=== PATIENT | female | born 1935 | race Caucasian/White ===

== ENCOUNTER → 2016-07-22 | Outpatient (CLI) | payer MEDICARE, MEDICAID ==
--- NOTE | 2016-07-22 11:55 | REPMRS ---
Patient History The patient states she had a clinical breast exam in 07/2016. Patient is postmenopausal. Family history of colorectal cancer in mother and breast cancer in maternal aunt. Benign excisional biopsy of the left breast. Digital Woman Screen Mammo: July 22, 2016 - Exam #: [id number] Bilateral CC and MLO view(s) were taken. Technologist: Monica Lopez Technologist Prior study comparison: January 21, 2013, digital woman screen mammo performed at [facility] to [facility]. August 30, 2010, bilateral bilat screen digital mammo performed at [facility] to [facility]. FINDINGS: The breast tissue is heterogeneously dense. This may lower the sensitivity of mammography. There has been no change in the appearance of the mammogram from the prior studies. There is a moderate amount of residual fibroglandular tissue which is fairly symmetric. There is no interval development of dominant mass, areas of architectural distortion, or clustered microcalcification typical of malignancy. ASSESSMENT: BI-RADS/ACR category 1 mammogram. Negative. Recommendation Routine screening mammogram in 1 year (for women over age 40). This mammogram was interpreted with the aid of an FDA-approved computer-aided dectection system. Electronically Signed By: João Amaya MD 07/22/16 [id number]
== END ==
LOC: M WHC 10:28
PROVIDERS: ATTEND Nurse Practitioner Family
DX: Z12.31 Encounter for screening mammogram for malignant neoplasm of breast (principal); Z78.0 Asymptomatic menopausal state; Z92.89 Personal history of other medical treatment
CPT/HCPCS: G0202; G0463

== ENCOUNTER → 2016-11-24 | Outpatient (CLI) | payer MEDICARE, MEDICAID ==
[~2016-11-24] MED LIST: ASPI1TAB PO; CALC600T60 PO; GABA-283 PO; HYDR-3713 PO; OMEP20CA3 PO; VITA100067 PO
[2016-11-24 15:09] LABS: MEAN CORPUSCULAR HEMOGLOBIN 34.1 pg (27.0-33.0); MEAN CORPUSCULAR HGB CONC 34.6 g/dl (32.0-36.5); MEAN CORPUSCULAR VOLUME 98.5 fl (80.0-96.0); RED CELL DISTRIBUTION WIDTH 12.6 % (11.5-14.5); WHITE BLOOD COUNT 5.8 K/mm3 (4.0-10.0)
--- NOTE | 2016-11-24 15:19 | REP ---
Clinical: Pre admission testing . Comparison: 10/09/2014 . Technique: PA and lateral. Findings: The mediastinum and cardiac silhouette are normal. Airway is patent and midline. The lung rubio are stable and without acute consolidation, effusion, or pneumothorax. The skeletal structures are intact and normal. Impression: 1. No acute cardiopulmonary process. Signed by Chandrakant Palmer MD 11/24/2016 03:11 P
[2016-11-24 15:25] LABS: ANION GAP 7 MEQ/L (8-16); BLOOD UREA NITROGEN 17 MG/DL (7-18); CALCIUM LEVEL 8.4 MG/DL (8.8-10.2); CARBON DIOXIDE LEVEL 28 MEQ/L (21-32); CHLORIDE LEVEL 111 MEQ/L (98-107); CREATININE FOR GFR 0.82 MG/DL (0.55-1.02); GLOMERULAR FILTRATION RATE > 60.0 (>32); GLUCOSE, FASTING 81 MG/DL (83-110); POTASSIUM SERUM 4.3 MEQ/L (3.5-5.1); SODIUM LEVEL 146 MEQ/L (136-145)
--- NOTE | 2016-11-25 13:21 | ECGEPIP ---
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 LA conduction disturbance. Borderline first-degree AV block. Marked left axis deviation. Left bundle branch block Slower rate but otherwise unchanged from 10/02/14 Electronically Signed On 11-25-2016 13:20:56 EDT by Fermin Greenfield
== END ==
LOC: M LAB 14:40
PROVIDERS: ATTEND Podiatrist Foot & Ankle Surgery
DX: Z01.818 Encounter for other preprocedural examination (principal); M67.472 Ganglion, left ankle and foot; R94.31 Abnormal electrocardiogram [ECG] [EKG]

== ENCOUNTER 2016-12-09 08:15 | Day surgery (SDC) | payer MEDICARE, MEDICAID ==
[~2016-12-09] VITALS: Ht 160 cm; Wt 65.8 kg
[~2016-12-09 08:15] MED LIST changes: -HYDR-3713 PO
[2016-12-09] MEDS ORDERED: CLINDAMYCIN 600 MG in APPROPRIATE DILUENT 1 EA IV ONE (08:30)
[2016-12-09] MEDS ORDERED: MIDAZOLAM INJ 2 MG/2 ML VIAL (J2250) As Ordered ONE (09:31)
[2016-12-09] MEDS ORDERED: fentaNYL 100 MCG/2 ML INJECTION (J3010) As Ordered ONE (09:31)
[2016-12-09] MEDS ORDERED: LIDOCAINE 1% MDV 20ML VIAL SQ PRN (09:45)
[2016-12-09] MEDS ORDERED: LR 1,000 ML IV ONE (09:45)
[2016-12-09] MEDS ORDERED: LIDOCAINE 1% MDV 20ML VIAL As Ordered ONE (09:53)
[2016-12-09] MEDS ORDERED: dexameTHASONE 4 MG/ML 1ML VIAL (J1100) As Ordered ONE (09:53)
[2016-12-09] MEDS ORDERED: BUPIVACAINE HCL 0.5% 10 ML VIAL As Ordered ONE (09:53)
[2016-12-09] MEDS ORDERED: LIDOCAINE 2% INJ 100 MG/5 ML SDV (FOR ANES.) As Ordered ONE (10:14)
[2016-12-09] MEDS ORDERED: PROPOFOL 200 MG/20 ML VIAL As Ordered ONE (10:14)
[2016-12-09] MEDS ORDERED: HYDR-3713 PO (10:50)
--- NOTE | 2016-12-09 11:24 | RO ---
DATE OF PROCEDURE: 12/09/2016 PREPROCEDURE DIAGNOSIS: Left foot ganglion cyst. POSTPROCEDURE DIAGNOSIS: Left foot inclusion cyst. PROCEDURE: Left foot cyst excision SURGEON: Dr. Sidney Wall RELIGIOUS RITUAL SLAUGHTERER: None. ANESTHESIA: Monitored anesthesia care. Preoperative injection of 14 mL of 1:1 mixture of 1% lidocaine plain and .50% Marcaine plain. ESTIMATED BLOOD LOSS: Minimal. MATERIALS: #3-0 Vicryl, #4-0 nylon. SPECIMEN: Left foot cyst. COMPLICATIONS: None. CONDITION: Stable. Sowmya Mata is an 81-year-old female who presents to [facility] with complains of painful cyst on the bottom of her left foot. She presents today for excision of cyst. The patient's side and site were identified and marked preoperatively and a written consent was reviewed and obtained. All the risks, complications, alternatives to the procedure were explained to the patient in detail. Questions were answered. DESCRIPTION OF PROCEDURE: The patient was brought to the operating room and placed on the operating room table in supine position. Monitored anesthesia care was given by the anesthesia team. Preoperative injection of 14 mL of 1:1 mixture of 1% lidocaine plain and 0.50 Marcaine plain was injected over the left foot. The left foot was prepped and draped in the normal sterile fashion. A tourniquet was applied to the ankle and inflated at 250 mmHg. An elliptical incision was created around the plantar cyst, which was located in the left plantar hallux. This was carried through with a #15 blade. Tenotomy scissors were used to carefully dissect around the cyst. The cyst was excised in total. There was noted to be a cream cheese-like material with inside this cyst. This was sent for pathology. The site was irrigated with normal saline . No further cyst or capsule was noted. Subcutaneous closure was performed with #3-0 Vicryl and skin closure with #4-0 nylon. 1 mL Decadron was injected. Sterile dressings were applied. The tourniquet was deflated. The patient was brought back to the postanesthesia care unit (PACU) with vital signs stable, neurovascular status intact. She will be weight bearing as tolerated. She will followup in the office in 2 days. DARLYN
[2016-12-09] MEDS ORDERED: ONDANSETRON 4MG/2ML VIAL (J2405) IV PRN (11:30)
[2016-12-09 12:15] VITALS: BP 178/79
== END 2016-12-09 12:45 | disposition home or self-care (01) ==
LOC: M SDC 08:15
PROVIDERS: ATTEND Podiatrist Foot & Ankle Surgery
DX: M67.472 Ganglion, left ankle and foot (principal); K21.9 Gastro-esophageal reflux disease without esophagitis; I44.7 Left bundle-branch block, unspecified; I49.1 Atrial premature depolarization; M12.9 Arthropathy, unspecified; M54.2 Cervicalgia; M48.06 Spinal stenosis, lumbar region; M47.817 Spondylosis without myelopathy or radiculopathy, lumbosacral region; F17.210 Nicotine dependence, cigarettes, uncomplicated; I08.0 Rheumatic disorders of both mitral and aortic valves; Z88.0 Allergy status to penicillin; Z79.899 Other long term (current) drug therapy; Z79.82 Long term (current) use of aspirin; Z86.19 Personal history of other infectious and parasitic diseases; Z98.51 Tubal ligation status; Z78.0 Asymptomatic menopausal state; Z96.1 Presence of intraocular lens
CPT/HCPCS: 28090; 88304; J1100; J2250; J3010

== ENCOUNTER → 2017-03-02 | Outpatient (CLI) | payer MEDICARE, MEDICAID ==
[~2017-03-02] MED LIST changes: +HYDR-3713 PO
[2017-03-02 18:00] LABS: BASO # 0.1 10^3/uL (0.0-0.2); BASO % 0.9 % (0.0-1.0); EOS # 0.2 10^3/uL (0.0-0.50); EOS % 3.4 % (0.0-3.0); IMMATURE GRANULOCYTE % 0.2 % (0-0); LYMPH # 2.1 10^3/uL (1.5-4.5); LYMPH % 32.1 % (24.0-44.0); MEAN CORPUSCULAR HEMOGLOBIN 32.1 pg (27.0-33.0); MEAN CORPUSCULAR HGB CONC 32.5 g/dl (32.0-36.5); MEAN CORPUSCULAR VOLUME 98.8 fl (80.0-96.0); MONO # 0.7 10^3/uL (0.0-0.8); MONO % 10.3 % (0.0-5.0); NEUTROPHILS # 3.4 10^3/uL (1.8-7.7); NEUTROPHILS % 53.1 % (36.0-66.0); PLATELET COUNT, AUTOMATED 340 10^3/uL (150-450); RED CELL DISTRIBUTION WIDTH 13.2 % (11.5-14.5); WHITE BLOOD COUNT 6.4 10^3/uL (4.0-10.0)
[2017-03-02 18:12] LABS: ALBUMIN 3.4 GM/DL (3.2-5.2); ALBUMIN/GLOBULIN RATIO 1.06 (1.00-1.93); ALKALINE PHOSPHATASE 109 U/L (45-117); ALT/SGPT 18 U/L (12-78); ANION GAP 7 MEQ/L (8-16); AST/SGOT 14 U/L (7-37); BILIRUBIN,TOTAL 0.2 MG/DL (0.2-1.0); BLOOD UREA NITROGEN 17 MG/DL (7-18); CALCIUM LEVEL 8.8 MG/DL (8.8-10.2); CARBON DIOXIDE LEVEL 29 MEQ/L (21-32); CHLORIDE LEVEL 107 MEQ/L (98-107); CREATININE FOR GFR 0.68 MG/DL (0.55-1.02); GLOMERULAR FILTRATION RATE > 60.0 (>32); GLUCOSE, FASTING 75 MG/DL (83-110); POTASSIUM SERUM 4.9 MEQ/L (3.5-5.1); SODIUM LEVEL 143 MEQ/L (136-145); TOTAL PROTEIN 6.6 GM/DL (6.4-8.2)
== END ==
LOC: M WUC 14:03
PROVIDERS: ATTEND Physician Assistant
DX: R19.7 Diarrhea, unspecified (principal)

== ENCOUNTER 2017-06-02 15:45 | Emergency (ER) | payer MEDICARE, MEDICAID ==
[2017-06-02] MEDS: GI COCKTAIL 50ML BTL(HYOSCYAMINE/MAALOX/LIDOCAINE VISCOUS)(1:3:1) PO (18:30)
[2017-06-02] MEDS: IPRATROPIUM 0.5MG/ALBUTEROL 2.5MG INH SOL UD 3ML (DUONEB)(J7620) NEB (18:58)
[2017-06-02 19:09] LABS: BASO # 0.1 10^3/uL (0.0-0.2); BASO % 0.3 % (0.0-1.0); EOS # 0.1 10^3/uL (0.0-0.50); EOS % 0.7 % (0.0-3.0); HEMOGLOBIN 12.1 g/dl (12.0-16.0); IMMATURE GRANULOCYTE % 0.6 % (0-3.0); LYMPH # 1.2 10^3/uL (1.5-4.5); LYMPH % 7.5 % (24.0-44.0); MEAN CORPUSCULAR HEMOGLOBIN 32.2 pg (27.0-33.0); MEAN CORPUSCULAR HGB CONC 33.6 g/dl (32.0-36.5); MEAN CORPUSCULAR VOLUME 95.7 fl (80.0-96.0); MONO # 1.1 10^3/uL (0.0-0.8); MONO % 7.3 % (0.0-5.0); NEUTROPHILS % 83.6 % (36.0-66.0); PLATELET COUNT, AUTOMATED 327 10^3/uL (150-450); RED BLOOD COUNT 3.76 10^6/uL (4.00-5.40); RED CELL DISTRIBUTION WIDTH 12.6 % (11.5-14.5); WHITE BLOOD COUNT 15.5 10^3/uL (4.0-10.0)
[2017-06-02 19:26] LABS: ANION GAP 5 MEQ/L (8-16); BLOOD UREA NITROGEN 10 MG/DL (7-18); CALCIUM LEVEL 8.7 MG/DL (8.8-10.2); CARBON DIOXIDE LEVEL 27 MEQ/L (21-32); CHLORIDE LEVEL 106 MEQ/L (98-107); CPK CREATINE PHOSPHOKINASE 49 U/L (26-192); CREATININE FOR GFR 0.62 MG/DL (0.55-1.30); GLOMERULAR FILTRATION RATE > 60.0 (>32); GLUCOSE, FASTING 107 MG/DL (70-100); MB/CK RELATIVE INDEX 2.04 (< OR =4); POTASSIUM SERUM 3.5 MEQ/L (3.5-5.1); SODIUM LEVEL 138 MEQ/L (136-145); TROPONIN I < 0.02 NG/ML (< 0.10)
[2017-06-02] MEDS: ACETAMINOPHEN 325 MG TAB PO (20:20)
[2017-06-02] MEDS: BENZONATATE 100 MG CAP PO (20:20)
== END 2017-06-02 20:28 | disposition home or self-care (01) ==
LOC: M ED 15:45
DX: J18.9 Pneumonia, unspecified organism (principal); R00.0 Tachycardia, unspecified; I44.7 Left bundle-branch block, unspecified; K21.9 Gastro-esophageal reflux disease without esophagitis; Z86.19 Personal history of other infectious and parasitic diseases; Z87.891 Personal history of nicotine dependence; Z79.82 Long term (current) use of aspirin; Z79.899 Other long term (current) drug therapy; Z88.0 Allergy status to penicillin
CPT/HCPCS: 71046

== ENCOUNTER → 2017-06-12 | Outpatient (CLI) | payer MEDICARE, MEDICAID ==
[2017-06-12 13:53] LABS: BASO # 0.1 10^3/uL (0.0-0.2); BASO % 0.9 % (0.0-1.0); EOS # 0.2 10^3/uL (0.0-0.50); EOS % 2.6 % (0.0-3.0); HEMATOCRIT 39.8 % (36.0-47.0); HEMOGLOBIN 12.9 g/dl (12.0-16.0); IMMATURE GRANULOCYTE % 0.7 % (0-3.0); LYMPH # 1.7 10^3/uL (1.5-4.5); LYMPH % 18.4 % (24.0-44.0); MEAN CORPUSCULAR HEMOGLOBIN 31.9 pg (27.0-33.0); MEAN CORPUSCULAR HGB CONC 32.4 g/dl (32.0-36.5); MEAN CORPUSCULAR VOLUME 98.3 fl (80.0-96.0); MONO # 0.8 10^3/uL (0.0-0.8); MONO % 8.3 % (0.0-5.0); NEUTROPHILS # 6.5 10^3/uL (1.8-7.7); NEUTROPHILS % 69.1 % (36.0-66.0); PLATELET COUNT, AUTOMATED 517 10^3/uL (150-450); RED BLOOD COUNT 4.05 10^6/uL (4.00-5.40); RED CELL DISTRIBUTION WIDTH 12.7 % (11.5-14.5); WHITE BLOOD COUNT 9.4 10^3/uL (4.0-10.0)
== END ==
LOC: M WUC 09:20
DX: J18.9 Pneumonia, unspecified organism (principal)
CPT/HCPCS: 85025

== ENCOUNTER → 2017-10-31 | Outpatient (CLI) | payer MEDICARE, MEDICAID | LOC: M WHC 10:31 | DX: Z12.31 Encounter for screening mammogram for malignant neoplasm of breast (principal); N60.31 Fibrosclerosis of right breast; N60.32 Fibrosclerosis of left breast | CPT/HCPCS: 77067 ==

== ENCOUNTER 2017-11-24 21:57 | Emergency (ER) | payer MEDICARE, MEDICAID ==
[2017-11-25 00:37] LABS: APPEARANCE, URINE HAZY (CLEAR); BACTERIA, URINE AUTO NEGATIVE (NEGATIVE); BILIRUBIN, URINE AUTO NEGATIVE (NEGATIVE); BLOOD, URINE BLOOD NEGATIVE (NEGATIVE); COLOR, URINE YELLOW (YELLOW); GLUCOSE, URINE (UA) AUTO NEGATIVE (NEGATIVE); KETONE, URINE AUTO NEGATIVE (NEGATIVE); LEUKOCYTE ESTERASE, URINE AUTO 3+ (NEGATIVE); MUCUS, URINE SMALL (NEGATIVE); NITRITE, URINE AUTO NEGATIVE (NEGATIVE); PROTEIN, URINE AUTO NEGATIVE (NEGATIVE); RBC, URINE AUTO 11 /HPF (0-3); SPECIFIC GRAVITY URINE AUTO 1.019 (1.002-1.035); SQUAMOUS EPITHELIAL CELL UR AU 0 /HPF (0-6); TRANSITIONAL EPITHELIAL AUTO 1 /HPF; WBC, URINE AUTO 57 /HPF (0-3)
[2017-11-25 00:39] LABS: BASO # 0.1 10^3/uL (0.0-0.2); BASO % 0.9 % (0.0-1.0); EOS # 0.2 10^3/uL (0.0-0.50); EOS % 2.6 % (0.0-3.0); HEMATOCRIT 42.8 % (36.0-47.0); IMMATURE GRANULOCYTE % 0.5 % (0-3.0); LYMPH # 2.3 10^3/uL (1.5-4.5); LYMPH % 26.5 % (24.0-44.0); MEAN CORPUSCULAR HEMOGLOBIN 32.8 pg (27.0-33.0); MEAN CORPUSCULAR HGB CONC 32.7 g/dl (32.0-36.5); MEAN CORPUSCULAR VOLUME 100.2 fl (80.0-96.0); MONO # 0.6 10^3/uL (0.0-0.8); MONO % 7.5 % (0.0-5.0); NEUTROPHILS # 5.3 10^3/uL (1.8-7.7); PLATELET COUNT, AUTOMATED 266 10^3/uL (150-450); RED BLOOD COUNT 4.27 10^6/uL (4.00-5.40); RED CELL DISTRIBUTION WIDTH 13.2 % (11.5-14.5); WHITE BLOOD COUNT 8.6 10^3/uL (4.0-10.0)
[2017-11-25 00:55] LABS: ALBUMIN 3.5 GM/DL (3.2-5.2); ALBUMIN/GLOBULIN RATIO 1.09 (1.00-1.93); ALKALINE PHOSPHATASE 108 U/L (45-117); ALT/SGPT 14 U/L (12-78); ANION GAP 5 MEQ/L (8-16); AST/SGOT 15 U/L (7-37); BILIRUBIN,DIRECT < 0.1 MG/DL (0.0-0.2); BILIRUBIN,TOTAL 0.1 MG/DL (0.2-1.0); BLOOD UREA NITROGEN 18 MG/DL (7-18); CALCIUM LEVEL 8.5 MG/DL (8.8-10.2); CARBON DIOXIDE LEVEL 28 MEQ/L (21-32); CHLORIDE LEVEL 110 MEQ/L (98-107); CREATININE FOR GFR 0.68 MG/DL (0.55-1.30); GLOMERULAR FILTRATION RATE > 60.0 (>32); GLUCOSE, FASTING 88 MG/DL (70-100); POTASSIUM SERUM 4.1 MEQ/L (3.5-5.1); SODIUM LEVEL 143 MEQ/L (136-145); TOTAL PROTEIN 6.7 GM/DL (6.4-8.2)
== END 2017-11-25 01:25 | disposition home or self-care (01) ==
LOC: M ED 21:57
DX: M54.5 Low back pain (principal); D25.2 Subserosal leiomyoma of uterus; K21.9 Gastro-esophageal reflux disease without esophagitis; F17.200 Nicotine dependence, unspecified, uncomplicated; Z88.0 Allergy status to penicillin; Z79.899 Other long term (current) drug therapy; Z79.82 Long term (current) use of aspirin
CPT/HCPCS: 74176

== ENCOUNTER → 2018-01-02 | Outpatient (CLI) | payer MEDICARE, MEDICAID | LOC: M WHC 09:26 | DX: D25.1 Intramural leiomyoma of uterus (principal) | CPT/HCPCS: 76830 ==

== ENCOUNTER → 2018-01-13 | Outpatient (CLI) | payer MEDICARE, MEDICAID | LOC: M WUC 18:16 | DX: S29.012A Strain of muscle and tendon of back wall of thorax, initial encounter (principal); R05 Cough; Z72.0 Tobacco use | CPT/HCPCS: 71046 ==

== ENCOUNTER 2018-01-14 15:54 | Emergency (ER) | payer MEDICARE, MEDICAID ==
[2018-01-14 19:44] LABS: BASO # 0.1 10^3/uL (0.0-0.2); BASO % 0.9 % (0.0-1.0); EOS # 0.3 10^3/uL (0.0-0.50); EOS % 2.8 % (0.0-3.0); HEMOGLOBIN 14.1 g/dl (12.0-15.5); IMMATURE GRANULOCYTE % 0.3 % (0-3.0); LYMPH # 2.4 10^3/uL (1.5-4.5); LYMPH % 26.7 % (24.0-44.0); MEAN CORPUSCULAR HGB CONC 33.6 g/dl (32.0-36.5); MEAN CORPUSCULAR VOLUME 98.4 fl (80.0-96.0); MONO # 0.6 10^3/uL (0.0-0.8); MONO % 6.9 % (0.0-5.0); NEUTROPHILS # 5.6 10^3/uL (1.8-7.7); NEUTROPHILS % 62.4 % (36.0-66.0); PLATELET COUNT, AUTOMATED 313 10^3/uL (150-450); RED BLOOD COUNT 4.27 10^6/uL (4.00-5.40); RED CELL DISTRIBUTION WIDTH 13.2 % (11.5-14.5)
[2018-01-14 20:20] LABS: ALBUMIN 3.5 GM/DL (3.2-5.2); ALBUMIN/GLOBULIN RATIO 1.09 (1.00-1.93); ALKALINE PHOSPHATASE 118 U/L (45-117); ALT/SGPT 16 U/L (12-78); ANION GAP 6 MEQ/L (8-16); AST/SGOT 12 U/L (7-37); BILIRUBIN,DIRECT < 0.1 MG/DL (0.0-0.2); BILIRUBIN,TOTAL 0.3 MG/DL (0.2-1.0); BLOOD UREA NITROGEN 22 MG/DL (7-18); CALCIUM LEVEL 8.8 MG/DL (8.8-10.2); CARBON DIOXIDE LEVEL 29 MEQ/L (21-32); CHLORIDE LEVEL 107 MEQ/L (98-107); CREATININE FOR GFR 0.83 MG/DL (0.55-1.30); GLOMERULAR FILTRATION RATE > 60.0 (>32); GLUCOSE, FASTING 87 MG/DL (70-100); POTASSIUM SERUM 4.4 MEQ/L (3.5-5.1); SODIUM LEVEL 142 MEQ/L (136-145); TOTAL PROTEIN 6.7 GM/DL (6.4-8.2)
[2018-01-14] MEDS: AZITHROMYCIN 250 MG TAB PO (21:08)
[2018-01-14] MEDS: KETOROLAC 30 MG/ML VIAL (J1885) IV (21:09)
== END 2018-01-14 21:23 | disposition home or self-care (01) ==
LOC: M ED 15:54
DX: R91.8 Other nonspecific abnormal finding of lung field (principal); E04.1 Nontoxic single thyroid nodule; M54.6 Pain in thoracic spine; Z72.0 Tobacco use; Z79.82 Long term (current) use of aspirin; Z79.899 Other long term (current) drug therapy; Z88.0 Allergy status to penicillin
CPT/HCPCS: J1885

== ENCOUNTER 2018-01-17 15:36 | Emergency (ER) | payer MEDICARE, MEDICAID | END 2018-01-17 16:43 | disposition home or self-care (01) | LOC: M ED 15:36 | DX: M79.2 Neuralgia and neuritis, unspecified (principal); M54.9 Dorsalgia, unspecified; G89.29 Other chronic pain; F17.200 Nicotine dependence, unspecified, uncomplicated; Z88.0 Allergy status to penicillin | CPT/HCPCS: 99283 ==

== ENCOUNTER 2018-03-29 07:32 | Emergency (ER) | payer MEDICARE, MEDICAID ==
[~2018-03-29] VITALS: Ht 160 cm; Wt 65.9 kg
[~2018-03-29 07:32] MED LIST changes: +AZIT-12 PO; -GABA-283 PO; +GABA-845 PO; +LEVA1TAB2 PO; +NAPR-50 PO; +TRAM50TA2 PO; +VALT1TAB PO
[2018-03-29 08:45] VITALS: BP 124/59
--- NOTE | 2018-03-29 08:51 | REP ---
UNILATERAL RIGHT RIBS, PA CHEST, FIVE VIEWS: HISTORY: Fall. COMPARISON: 01/13/2018 Linear densities are present in the lower lobes consistent with atelectasis or scar. The heart is normal in size. The pulmonary vasculature is normal in appearance. The bony structure is intact. IMPRESSION: Bibasilar atelectasis or scar. Electronically Signed by Kain Hunt MD 03/29/2018 09:00 A
--- NOTE | 2018-03-29 08:52 | REP ---
NASAL BONES, THREE VIEWS: HISTORY: Fall. The sinuses are clear. There is no fracture or bone lesion. IMPRESSION: Normal study. Electronically Signed by Kain Hunt MD 03/29/2018 09:00 A
== END 2018-03-29 08:51 | disposition home or self-care (01) ==
LOC: M ED 07:32
DX: S20.211A Contusion of right front wall of thorax, initial encounter (principal); S00.33XA Contusion of nose, initial encounter; W01.0XXA Fall on same level from slipping, tripping and stumbling without subsequent striking against object, initial encounter; Y92.008 Other place in unspecified non-institutional (private) residence as the place of occurrence of the external cause; K21.9 Gastro-esophageal reflux disease without esophagitis; Z88.0 Allergy status to penicillin; Z87.891 Personal history of nicotine dependence

== ENCOUNTER → 2018-04-28 | Outpatient (CLI) | payer MEDICARE, MEDICAID ==
[2018-04-28 14:46] LABS: FREE T3 2.3 PG/ML (2.2-4.0); FREE T4 0.66 NG/DL (0.76-1.46); THYROID STIMULATING HORMONE 12.3 uIU/ML (0.358-3.740)
== END ==
LOC: M WUC 11:08
PROVIDERS: ATTEND Nurse Practitioner Family
DX: E04.1 Nontoxic single thyroid nodule (principal)

== ENCOUNTER → 2018-06-15 | Outpatient (CLI) | payer MEDICARE, MEDICAID ==
[2018-06-15 14:59] LABS: FREE T3 2.4 PG/ML (2.2-4.0); FREE T4 0.94 NG/DL (0.76-1.46); THYROID STIMULATING HORMONE 4.77 uIU/ML (0.358-3.740)
== END ==
LOC: M WUC 12:33
PROVIDERS: ATTEND Nurse Practitioner Family
DX: E03.9 Hypothyroidism, unspecified (principal)

== ENCOUNTER 2018-06-27 06:31 | Emergency (ER) | payer MEDICARE, MEDICAID ==
[~2018-06-27] VITALS: Ht 160 cm; Wt 65.9 kg
[~2018-06-27 06:31] MED LIST changes: -ASPI1TAB PO; +ASPI81TA26 PO; -NAPR-50 PO; +NAPR-837 PO
--- NOTE | 2018-06-27 07:58 | REP ---
Clinical: Foreign body sensation. Technique: AP and lateral soft tissue neck radiographs. Findings: Airway is patent and normal in appearance without associated mass or mass effect. The surrounding soft tissues are unremarkable for age and there is no obvious foreign body identified. Soft tissue calcifications in the prevertebral soft tissues at the C3 and C4-5 levels likely represent osteophytes and calcifications related to the thyroid rather than actual pathologic foreign body material. No subcutaneous emphysema. The osseous structures demonstrate age-related osteopenia and degenerative changes. Impression: No definite foreign body appreciated. Electronically Signed by Chandrakant Palmer MD 06/27/2018 07:50 A
[2018-06-27 08:14] VITALS: BP 105/54
== END 2018-06-27 08:22 | disposition home or self-care (01) ==
LOC: M ED 06:31
DX: R09.89 Other specified symptoms and signs involving the circulatory and respiratory systems (principal); E04.1 Nontoxic single thyroid nodule; K27.9 Peptic ulcer, site unspecified, unspecified as acute or chronic, without hemorrhage or perforation; M54.9 Dorsalgia, unspecified; F17.200 Nicotine dependence, unspecified, uncomplicated; Z88.0 Allergy status to penicillin; Z79.899 Other long term (current) drug therapy

== ENCOUNTER → 2018-07-29 | Outpatient (CLI) | payer MEDICARE, MEDICAID ==
[2018-07-29 13:21] LABS: BASO # 0.1 10^3/uL (0.0-0.2); BASO % 0.9 % (0.0-1.0); EOS # 0.1 10^3/uL (0.0-0.50); EOS % 1.5 % (0.0-3.0); HEMATOCRIT 43.2 % (36.0-47.0); LYMPH # 1.6 10^3/uL (1.5-4.5); LYMPH % 21.4 % (24.0-44.0); MEAN CORPUSCULAR HEMOGLOBIN 32.3 pg (27.0-33.0); MEAN CORPUSCULAR HGB CONC 32.4 g/dl (32.0-36.5); MEAN CORPUSCULAR VOLUME 99.8 fl (80.0-96.0); MONO # 0.5 10^3/uL (0.0-0.8); MONO % 6.6 % (0.0-5.0); NEUTROPHILS # 5.1 10^3/uL (1.8-7.7); NEUTROPHILS % 69.3 % (36.0-66.0); PLATELET COUNT, AUTOMATED 314 10^3/uL (150-450); RED BLOOD COUNT 4.33 10^6/uL (4.00-5.40); WHITE BLOOD COUNT 7.4 10^3/uL (4.0-10.0)
[2018-07-29 14:05] LABS: ALBUMIN 3.4 GM/DL (3.2-5.2); ALT/SGPT 14 U/L (12-78); BILIRUBIN,TOTAL 0.3 MG/DL (0.2-1.0); BLOOD UREA NITROGEN 12 MG/DL (7-18); CARBON DIOXIDE LEVEL 31 MEQ/L (21-32); CHLORIDE LEVEL 107 MEQ/L (98-107); CHOLESTEROL LEVEL 208 MG/DL (<200); CHOLESTEROL RISK RATIO 3.014 (<5); CREATININE FOR GFR 0.61 MG/DL (0.55-1.30); FREE T3 2.5 PG/ML (2.2-4.0); FREE T4 1.04 NG/DL (0.76-1.46); GLOMERULAR FILTRATION RATE > 60.0 (>32); GLUCOSE, FASTING 75 MG/DL (70-100); HDL CHOLESTEROL 69 MG/DL (>40); LDL CHOLESTEROL 114 MG/DL (<100); NON-HDL-C 139 MG/DL; POTASSIUM SERUM 4.5 MEQ/L (3.5-5.1); SODIUM LEVEL 141 MEQ/L (136-145); TOTAL PROTEIN 6.3 GM/DL (6.4-8.2); TRIGLYCERIDES LEVEL 125 MG/DL (<150); VITAMIN B12 LEVEL 358 PG/ML (247-911)
== END ==
LOC: M WUC 10:25
PROVIDERS: ATTEND Nurse Practitioner Family
DX: E53.9 Vitamin B deficiency, unspecified (principal); E04.1 Nontoxic single thyroid nodule; E78.5 Hyperlipidemia, unspecified; K21.9 Gastro-esophageal reflux disease without esophagitis

== ENCOUNTER 2018-10-26 10:40 | Emergency (ER) | payer MEDICARE, MEDICAID ==
[~2018-10-26] VITALS: Ht 162.6 cm; Wt 64.5 kg
[~2018-10-26 10:40] MED LIST changes: +OMEP1CAP73 PO; -OMEP20CA3 PO
[2018-10-26 11:41] LABS: BASO # 0.1 10^3/uL (0.0-0.2); BASO % 0.8 % (0.0-1.0); EOS # 0.2 10^3/uL (0.0-0.50); HEMOGLOBIN 13.2 g/dl (12.0-15.5); LYMPH # 1.4 10^3/uL (1.5-4.5); LYMPH % 18.2 % (24.0-44.0); MEAN CORPUSCULAR HEMOGLOBIN 32.5 pg (27.0-33.0); MEAN CORPUSCULAR VOLUME 98.5 fl (80.0-96.0); MONO # 0.6 10^3/uL (0.0-0.8); MONO % 7.4 % (0.0-5.0); NEUTROPHILS # 5.4 10^3/uL (1.8-7.7); NEUTROPHILS % 71.2 % (36.0-66.0); PLATELET COUNT, AUTOMATED 281 10^3/uL (150-450); RED BLOOD COUNT 4.06 10^6/uL (4.00-5.40); WHITE BLOOD COUNT 7.6 10^3/uL (4.0-10.0)
[2018-10-26 12:07] LABS: BLOOD UREA NITROGEN 15 MG/DL (7-18); CALCIUM LEVEL 8.9 MG/DL (8.8-10.2); CARBON DIOXIDE LEVEL 30 MEQ/L (21-32); CHLORIDE LEVEL 110 MEQ/L (98-107); CK-MB VALUE MASS < 1.0 NG/ML (<3.6); CPK CREATINE PHOSPHOKINASE 43 U/L (26-192); CREATININE FOR GFR 0.68 MG/DL (0.55-1.30); GLOMERULAR FILTRATION RATE > 60.0 (>32); GLUCOSE, FASTING 103 MG/DL (70-100); MB/CK RELATIVE INDEX 2.33 (< OR =4); POTASSIUM SERUM 3.9 MEQ/L (3.5-5.1); SODIUM LEVEL 143 MEQ/L (136-145); TROPONIN I < 0.02 NG/ML (< 0.10)
[2018-10-26] MEDS ORDERED: NEUR100C PO (12:45)
--- NOTE | 2018-10-26 12:47 | REP ---
CHEST, TWO VIEWS: Two views of the chest are performed and compared to a prior study of 01/13/2018. There is no acute infiltrate. There is mild bibasilar fibrotic scarring which is stable. Heart is normal in size and there is mild calcification and tortuosity of the thoracic aorta. The mediastinal silhouette is unchanged. There is osteopenia. Increased compression of the T6 vertebral body is noted compared to the prior study. There is a stable compression deformity of T11. IMPRESSION: No acute infiltrate. Increased compression of the T6 vertebral body compared to the prior study of 01/13/2018. Electronically Signed by João Amaya MD 10/28/2018 07:46 A
[2018-10-26 13:01] VITALS: BP 124/71
--- NOTE | 2018-10-26 20:05 | ECGEPIP ---
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
--- NOTE | 2018-10-28 12:33 | ED PDOC ---
Post-Departure Follow-Up dr mcleod faxed fomral report of cxr for fu radhag Kevin Ray MD Oct 28, 2018 12:33
== END 2018-10-26 13:09 | disposition home or self-care (01) ==
LOC: M ED 10:40
DX: R07.89 Other chest pain (principal); I44.7 Left bundle-branch block, unspecified; I51.9 Heart disease, unspecified; I10 Essential (primary) hypertension; Z72.0 Tobacco use; Z79.899 Other long term (current) drug therapy; Z88.0 Allergy status to penicillin

== ENCOUNTER → 2018-10-30 | Outpatient (CLI) | payer MEDICARE, MEDICAID ==
[~2018-10-30] MED LIST changes: +NEUR100C PO
--- NOTE | 2018-10-30 11:44 | REPMRS ---
Patient History The patient states she has not had a clinical breast exam in over a year. Family history of breast cancer in maternal aunt, colorectal cancer in mother. Benign excisional biopsy of the left breast. No Hormone Replacement Therapy 3D TOMOSYNTHESIS WAS PERFORMED. [facility] lifetime risk for breast cancer is 1.8%. Digital Woman Screen Mammo: October 30, 2018 - Exam #: [id number] Bilateral CC and MLO view(s) were taken. Technologist: Abby Rouse, Technologist Prior study comparison: October 31, 2017, bilateral digital woman screen mammo performed at [facility]. July 22, 2016, digital woman screen mammo performed at [facility]. FINDINGS: The breast tissue is heterogeneously dense. This may lower the sensitivity of mammography. There has been no change in the appearance of the mammogram from the prior studies. There is a moderate amount of residual fibroglandular tissue which is fairly symmetric. There is no interval development of dominant mass, areas of architectural distortion, or clustered microcalcification typical of malignancy. Assessment: BI-RADS/ACR category 1 mammogram. Negative Mammogram. Recommendation Routine screening mammogram in 1 year (for women over age 40). This mammogram was interpreted with the aid of an FDA-approved computer-aided dectection system. Electronically Signed By: João Amaya MD 10/30/18 [id number]
== END ==
LOC: M WHC 09:35
PROVIDERS: ATTEND Nurse Practitioner Family
DX: Z12.31 Encounter for screening mammogram for malignant neoplasm of breast (principal)

== ENCOUNTER → 2018-12-23 | Outpatient (CLI) | payer MEDICARE, MEDICAID ==
[~2018-12-23] MED LIST changes: -OMEP1CAP73 PO; +OMEP20CA4 PO
--- NOTE | 2018-12-24 11:44 | DEXA ---
AP SPINE L1 - L4 0.789 -3.3 -1.4 LT FEMUR TOTAL 0.692 -2.5 -0.3 LT NECK 0.614 -3.1 -0.8 RT FEMUR TOTAL 0.723 -2.3 -0.1 RT NECK 0.687 -2.5 -0.2 TOTAL BODY TOTAL OTHER COMMENTS: There is low bone density of the right hip. There is osteoporosis of the spine. There is osteoporosis of the left hip. The decreased density of the spine does represent a significant change. The decreased density of the left hip does represent a significant change. The decreased density of the right hip does represent a significant change. The density of the spine has decreased 21.6% since the initial exam on 07/16/2007. The spine density has decreased 22.2% since the most recent exam on 09/20/2010. The density of the left hip has decreased 8.6% since the initial exam on 07/16/2007. The density of the left hip has decreased 6.0% since the most recent exam on 09/20/2010. The density of the right hip has decreased 6.6% since the initial exam on 07/16/2007. The density of the right hip has decreased 4.4% since the most recent exam on 09/20/2010. FOLLOW-UP: Recommendation for the next bone density exam: 2 years. DARLYN
== END ==
LOC: M WHC 09:47
PROVIDERS: ATTEND Internal Medicine
DX: M81.0 Age-related osteoporosis without current pathological fracture (principal)

== ENCOUNTER 2019-05-10 23:46 | Emergency (ER) | payer MEDICARE, MEDICAID ==
[~2019-05-10] VITALS: Ht 160 cm; Wt 68.2 kg
[~2019-05-10 23:46] MED LIST changes: +OMEP1CAP73 PO; -OMEP20CA4 PO
[2019-05-11 00:32] LABS: BASO % 0.2 % (0.0-1.0); EOS % 0.2 % (0.0-3.0); HEMATOCRIT 41.7 % (36.0-47.0); HEMOGLOBIN 13.7 g/dl (12.0-15.5); LYMPH # 0.8 10^3/uL (1.5-5.0); LYMPH % 14.1 % (24.0-44.0); MEAN CORPUSCULAR HEMOGLOBIN 32.1 pg (27.0-33.0); MEAN CORPUSCULAR HGB CONC 32.9 g/dl (32.0-36.5); MEAN CORPUSCULAR VOLUME 97.7 fl (80.0-96.0); MONO # 0.5 10^3/uL (0.0-0.8); MONO % 8.8 % (0.0-5.0); NEUTROPHILS # 4.5 10^3/uL (1.5-8.5); NEUTROPHILS % 76.2 % (36.0-66.0); PLATELET COUNT, AUTOMATED 223 10^3/uL (150-450); RED BLOOD COUNT 4.27 10^6/uL (4.00-5.40); WHITE BLOOD COUNT 5.9 10^3/uL (4.0-10.0)
[2019-05-11 00:53] LABS: BLOOD UREA NITROGEN 11 MG/DL (7-18); CALCIUM LEVEL 8.7 MG/DL (8.8-10.2); CARBON DIOXIDE LEVEL 30 MEQ/L (21-32); CHLORIDE LEVEL 106 MEQ/L (98-107); CK-MB VALUE MASS 1.3 NG/ML (<3.6); CPK CREATINE PHOSPHOKINASE 67 U/L (26-192); CREATININE FOR GFR 0.77 MG/DL (0.55-1.30); GLOMERULAR FILTRATION RATE > 60.0 (>32); GLUCOSE, FASTING 106 MG/DL (70-100); MB/CK RELATIVE INDEX 1.94 (< OR =4); SODIUM LEVEL 139 MEQ/L (136-145); TROPONIN I < 0.02 NG/ML (< 0.10)
[2019-05-11 01:01] LABS: INFLUENZA A AMPLIFICATION NEGATIVE (NEGATIVE); INFLUENZA B AMPLIFICATION NEGATIVE (NEGATIVE)
[2019-05-11] MEDS ORDERED: IPRATROPIUM 0.5MG/ALBUTEROL 2.5MG INH SOL UD 3ML (DUONEB)(J7620) NEB ONE (01:45)
[2019-05-11] MEDS ORDERED: predniSONE 20 MG TAB PO ONE (03:45)
[2019-05-11] MEDS ORDERED: ALBUTEROL 90 MCG/ACT 8GM HFA INHALER INH ONE (03:45)
[2019-05-11] MEDS ORDERED: guaiFENesin ER 600 MG TAB PO ONE (03:45)
[2019-05-11] MEDS ORDERED: DOXY100C37 (03:50)
[2019-05-11] MEDS ORDERED: BENZ-18 (03:50)
[2019-05-11] MEDS ORDERED: PRED20TA PO (05:05)
[2019-05-11] MEDS ORDERED: MUCI600T31 PO (05:05)
[2019-05-11 05:27] VITALS: BP 139/70
--- NOTE | 2019-05-11 07:50 | REP ---
Clinical: Cough. Technique: PA and lateral. Comparison: 10/26/2018. Findings: Mediastinum and cardiac silhouette are stable. Lung rubio demonstrate chronic changes. No obvious acute consolidation or effusion. No pneumothorax. Impression: Chronic-appearing changes. No obvious focal consolidation or effusion. Electronically Signed by Chandrakant Palmer MD 05/11/2019 07:40 A
--- NOTE | 2019-05-11 20:21 | ECGEPIP ---
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
== END 2019-05-11 05:20 | disposition home or self-care (01) ==
LOC: M ED 23:46
DX: J40 Bronchitis, not specified as acute or chronic (principal); I44.7 Left bundle-branch block, unspecified; Z88.0 Allergy status to penicillin

== ENCOUNTER 2019-05-17 07:08 | Emergency (ER) | payer MEDICARE, MEDICAID ==
[~2019-05-17] VITALS: Ht 160 cm; Wt 65.2 kg
[~2019-05-17 07:08] MED LIST changes: +BENZ-18; +DOXY100C37; +MUCI600T31 PO; +PRED20TA PO
[2019-05-17] MEDS ORDERED: LEVO75TA4 (07:19)
[2019-05-17] MEDS ORDERED: GABA-845 (07:19)
[2019-05-17 08:59] LABS: BASO # 0.1 10^3/uL (0.0-0.2); BASO % 0.4 % (0.0-1.0); EOS # 0.1 10^3/uL (0.0-0.5); EOS % 1.1 % (0.0-3.0); HEMOGLOBIN 14.2 g/dl (12.0-15.5); LYMPH # 1.8 10^3/uL (1.5-5.0); LYMPH % 14.3 % (24.0-44.0); MEAN CORPUSCULAR HEMOGLOBIN 32.3 pg (27.0-33.0); MEAN CORPUSCULAR HGB CONC 33.8 g/dl (32.0-36.5); MEAN CORPUSCULAR VOLUME 95.5 fl (80.0-96.0); MONO # 0.9 10^3/uL (0.0-0.8); MONO % 7.5 % (0.0-5.0); NEUTROPHILS # 9.3 10^3/uL (1.5-8.5); NEUTROPHILS % 75.9 % (36.0-66.0); PLATELET COUNT, AUTOMATED 379 10^3/uL (150-450); WHITE BLOOD COUNT 12.3 10^3/uL (4.0-10.0)
[2019-05-17 09:30] LABS: ALBUMIN 3.2 GM/DL (3.2-5.2); ALT/SGPT 37 U/L (12-78); BILIRUBIN,DIRECT < 0.1 MG/DL (0.0-0.2); BILIRUBIN,TOTAL 0.2 MG/DL (0.2-1.0); BLOOD UREA NITROGEN 24 MG/DL (7-18); CALCIUM LEVEL 9.4 MG/DL (8.8-10.2); CARBON DIOXIDE LEVEL 32 MEQ/L (21-32); CHLORIDE LEVEL 108 MEQ/L (98-107); CREATININE FOR GFR 0.72 MG/DL (0.55-1.30); GLOMERULAR FILTRATION RATE > 60.0 (>32); GLUCOSE, FASTING 92 MG/DL (70-100); LIPASE 149 U/L (73-393); POTASSIUM SERUM 4.9 MEQ/L (3.5-5.1); SODIUM LEVEL 142 MEQ/L (136-145); TOTAL PROTEIN 6.2 GM/DL (6.4-8.2)
[2019-05-17 09:43] LABS: CK-MB VALUE MASS 1.1 NG/ML (<3.6); CPK CREATINE PHOSPHOKINASE 56 U/L (26-192); MB/CK RELATIVE INDEX 1.96 (< OR =4); TROPONIN I < 0.02 NG/ML (< 0.10)
[2019-05-17] MEDS ORDERED: GI COCKTAIL 50ML BTL(HYOSCYAMINE/MAALOX/LIDOCAINE VISCOUS)(1:3:1) PO ONE (10:00)
[2019-05-17] MEDS ORDERED: ISOVUE-370 76% 100ML VIAL (Q9967) As Ordered ONE (11:09)
--- NOTE | 2019-05-17 11:16 | ECGEPIP ---
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
[2019-05-17 11:43] VITALS: BP 180/75
--- NOTE | 2019-05-17 11:55 | REP ---
CT of the abdomen and pelvis with IV contrast, without bowel contrast for abdominal pain with diarrhea, question infectious process: Comparison is 11/24/2017. The visualized lung rubio are unremarkable. There is a 1 cm hypodensity in the right lobe of the liver, unchanged from the prior study, nonspecific, likely a cyst. The hepatic parenchyma is otherwise unremarkable. The gallbladder, pancreas and spleen are unremarkable. The adrenals, kidneys and abdominal aorta are unremarkable except for occasional calcified atheroma in the aorta. There is no periaortic adenopathy or mass. There is no bowel distension or obstruction. Pelvis: The appendix is unremarkable. The uterus is enlarged. There are multiple hypodensities in the myometrium, the largest in the posterior myometrium compatible with fibroids. This is unchanged. The bladder is unremarkable. There is no ascites or adenopathy. There is wall thickening of the sigmoid colon. This is compatible with colitis in the appropriate clinical setting. There is no diverticulosis or diverticulitis. Impression: Wall thickening of the sigmoid colon compatible with colitis in the appropriate clinical setting. There is no diverticulosis or diverticulitis. The uterus is enlarged and there are multiple uterine fibroids. This is unchanged. There is a 1 cm stable hepatic hypodensity, likely a cyst. Electronically Signed by João Mason MD 05/17/2019 11:47 A
[2019-05-17] MEDS ORDERED: DICY10CA13 PO (12:16)
--- NOTE | 2019-05-18 16:18 | ED PDOC ---
Post-Departure Follow-Up dr len english faxed formal report of ct abd/p for fu Kevin Marques MD May 18, 2019 16:18
== END 2019-05-17 12:39 | disposition home or self-care (01) ==
LOC: M ED 07:08
DX: R19.7 Diarrhea, unspecified (principal); K21.9 Gastro-esophageal reflux disease without esophagitis; E03.9 Hypothyroidism, unspecified; Z79.899 Other long term (current) drug therapy
CPT/HCPCS: 36415; 74177; 80048; 80076; 81001; 82550; 82553; 83690; 84484; 85025; 87507; 93005; 99284; Q9967

== ENCOUNTER 2019-07-21 18:43 | Day surgery (SDC) | payer MEDICARE, MEDICAID ==
[~2019-07-21] VITALS: Ht 157.5 cm; Wt 66.7 kg
[~2019-07-21 18:43] MED LIST changes: +DICY10CA13 PO; +LEVO75TA4 PO
[2019-07-21] MEDS ORDERED: OMEP-221 PO (18:51)
[2019-07-21] MEDS ORDERED: CEPH500C PO (18:51)
[2019-07-21] MEDS ORDERED: ALEN35TA6 PO (18:51)
[2019-07-21] MEDS ORDERED: NS 1,000 ML IV ONE (19:30)
[2019-07-21] MEDS ORDERED: KETOROLAC 30 MG/ML 1ML VIAL IV ONE (19:30)
[2019-07-21] MEDS ORDERED: PANTOPRAZOLE 40MG VIAL (C9113 PER 1) IV ONE (19:30)
[2019-07-21] MEDS ORDERED: ONDANSETRON 4MG/2ML VIAL IV ONE (19:30)
--- NOTE | 2019-07-21 20:07 | ECGEPIP ---
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
--- NOTE | 2019-07-21 20:13 | REPVR ---
PROCEDURE INFORMATION: Exam: CT Abdomen And Pelvis Without Contrast Exam date and time: 07/21/2019 7:37 PM Age: 83 years old Clinical indication: Abdominal pain; Generalized; Additional info: HX diverticulitis TECHNIQUE: Imaging protocol: Computed tomography of the abdomen and pelvis without contrast. Radiation optimization: All CT scans at this facility use at least one of these dose optimization techniques: automated exposure control; mA and/or kV adjustment per patient size (includes targeted exams where dose is matched to clinical indication); or iterative reconstruction. COMPARISON: CT ABD/PEL W/IV CONTRAST ONLY 05/17/2019 11:15 AM FINDINGS: Liver: Calcified hepatic granulomas present. Gallbladder and bile ducts: Normal. No calcified stones. No ductal dilation. Pancreas: Normal. No ductal dilation. Spleen: Calcified splenic granulomas. Adrenals: Normal. No mass. Kidneys and ureters: Normal. No hydronephrosis. Stomach and bowel: Scattered colonic diverticula. Large amount of stool in the colon. Appendix: The appendix is enlarged with prominent periappendiceal inflammation. Phlegmonous changes noted at the tip of the appendix. Intraperitoneal space: Small amount of fluid in the right lateral pericolic gutter. Vasculature: Atherosclerotic change of the abdominal aorta and iliac vessels. No abdominal aortic aneurysm. Lymph nodes: Unremarkable. No enlarged lymph nodes. Bladder: Unremarkable as visualized. Reproductive: There is a large posterior corpus/fundal fibroid measuring 9.5 cm in maximum diameter. 1.9 cm cyst noted in the left ovary. 2.1 cm cyst suggested in right ovary. Bones/joints: Levoscoliosis of the thoracolumbar spine with advanced secondary degenerative disc disease. Soft tissues: Unremarkable. IMPRESSION: 1. Acute appendicitis 2. Enlarged uterine fibroid. Heterogeneous in density suggest partial infarction. No change since 11/24/2017 3. Cysts within both ovaries. These can be a normal finding in postmenopausal females but evaluation with ultrasound is recommended as baseline examination. 4. Colonic diverticulosis. No diverticulitis. Electronically signed by: Natalee Bar On 07/21/2019 20:12:54 PM
[2019-07-21 20:19] LABS: BASO # 0.1 10^3/uL (0.0-0.2); BASO % 0.6 % (0.0-1.0); EOS # 0.1 10^3/uL (0.0-0.5); HEMATOCRIT 36.9 % (36.0-47.0); LYMPH # 1.2 10^3/uL (1.5-5.0); LYMPH % 9.4 % (24.0-44.0); MEAN CORPUSCULAR HEMOGLOBIN 32.2 pg (27.0-33.0); MEAN CORPUSCULAR HGB CONC 32.5 g/dl (32.0-36.5); MEAN CORPUSCULAR VOLUME 98.9 fl (80.0-96.0); MONO # 1.3 10^3/uL (0.0-0.8); NEUTROPHILS # 9.9 10^3/uL (1.5-8.5); NEUTROPHILS % 78.6 % (36.0-66.0); PLATELET COUNT, AUTOMATED 283 10^3/uL (150-450); RED BLOOD COUNT 3.73 10^6/uL (4.00-5.40); WHITE BLOOD COUNT 12.5 10^3/uL (4.0-10.0)
[2019-07-21] MEDS ORDERED: MORPHINE 2 MG/ML 1ML VIAL (J2270) IV ONE (20:30)
[2019-07-21] MEDS ORDERED: VITAD1000T PO (21:02)
[2019-07-21] MEDS ORDERED: GABA-845 PO (21:02)
[2019-07-21 21:04] LABS: ALBUMIN 2.8 GM/DL (3.2-5.2); ALT/SGPT 16 U/L (12-78); BILIRUBIN,DIRECT < 0.1 MG/DL (0.0-0.2); BILIRUBIN,TOTAL 0.3 MG/DL (0.2-1.0); BLOOD UREA NITROGEN 18 MG/DL (7-18); CALCIUM LEVEL 8.5 MG/DL (8.8-10.2); CARBON DIOXIDE LEVEL 30 MEQ/L (21-32); CHLORIDE LEVEL 109 MEQ/L (98-107); CREATININE FOR GFR 0.62 MG/DL (0.55-1.30); GLOMERULAR FILTRATION RATE > 60.0 (>32); GLUCOSE, FASTING 110 MG/DL (70-100); LIPASE 88 U/L (73-393); POTASSIUM SERUM 3.8 MEQ/L (3.5-5.1); SODIUM LEVEL 141 MEQ/L (136-145); TOTAL PROTEIN 5.7 GM/DL (6.4-8.2)
[2019-07-21] MEDS ORDERED: ONDANSETRON 4MG/2ML VIAL IV PRN (22:00)
[2019-07-21] MEDS ORDERED: metroNIDAZOLE 500 MG in IV 1 EA IV ONE (22:00)
[2019-07-21] MEDS ORDERED: CIPROFLOXACIN 400 MG in IV 1 EA IV ONE (22:00)
[2019-07-21] MEDS ORDERED: CIPROFLOXACIN/D5W 400 MG/200 ML BAG (J0744) As Ordered ONE (22:36)
[2019-07-21] MEDS: LR 1,000 ML IV SCH (22:43)
[2019-07-21] MEDS ORDERED: fentaNYL 100 MCG/2 ML INJECTION (J3010) As Ordered ONE (23:11)
[2019-07-21] MEDS ORDERED: DESFLURANE 240 ML INHALANT As Ordered ONE (23:11)
[2019-07-21] MEDS ORDERED: MIDAZOLAM INJ 2MG/2ML VIAL (J2250 PER 1MG) As Ordered ONE (23:12)
[2019-07-21] MEDS ORDERED: ROCURONIUM BROMIDE 50 MG/5 ML VIAL As Ordered ONE (23:12)
[2019-07-21] MEDS ORDERED: propofoL 200 MG/20 ML VIAL As Ordered ONE (23:12)
[2019-07-21] MEDS ORDERED: ONDANSETRON 4MG/2ML VIAL As Ordered ONE (23:12)
[2019-07-21] MEDS ORDERED: dexameTHASONE 4 MG/ML 1ML VIAL (J1100 PER 1MG) As Ordered ONE (23:12)
[2019-07-21] MEDS ORDERED: LIDOCAINE 2% 100MG/5ML SDV (FOR ANES.) As Ordered ONE (23:12)
[2019-07-21 23:25] VITALS: BP 148/78
[2019-07-22] VITALS (12 sets, daily range): BP systolic 114–135; BP diastolic 60–72; O2SAT 95
[2019-07-22] MEDS ORDERED: KETOROLAC 30 MG/ML 1ML VIAL IV PRN (02:00)
[2019-07-22] MEDS: MORPHINE 2 MG/ML 1ML VIAL (J2270) IV PRN ×2 (03:45→10:12)
[2019-07-22] MEDS ORDERED: BUPIVACAINE HCL 0.25% 30ML VIAL As Ordered ONE (04:10)
[2019-07-22] MEDS ORDERED: SUGAMMADEX SODIUM 500 MG/5 ML VIAL (BRIDION) As Ordered ONE (06:01)
[2019-07-22] MEDS ORDERED: ACETAMINOPHEN 1000MG 100ML IV BTL (OFIRMEV) (J0131 PER 10MG) As Ordered ONE (06:01)
[2019-07-22] MEDS ORDERED: fentaNYL 100 MCG/2 ML INJECTION (J3010) As Ordered ONE ×2 (06:17→07:26)
[2019-07-22] MEDS ORDERED: ONDANSETRON 4MG/2ML VIAL As Ordered ONE (07:26)
[2019-07-22] MEDS ORDERED: oxyCODONE 5MG TAB As Ordered ONE (07:26)
[2019-07-22] MEDS ORDERED: ACETAMINOPHEN TAB 650MG DOSE (2X325MG) PO PRN (07:30)
[2019-07-22] MEDS ORDERED: LR 1,000 ML IV SCH (07:30)
[2019-07-22] MEDS ORDERED: ONDANSETRON 4MG/2ML VIAL IV PRN (07:30)
[2019-07-22] MEDS ORDERED: oxyCODONE 5MG TAB PO PRN (07:30)
[2019-07-22] MEDS: fentaNYL 100 MCG/2 ML INJECTION (J3010) IV PRN ×3 (07:30→07:40)
[2019-07-22] MEDS ORDERED: LEVALBUTEROL 1.25 MG/0.5 ML CONCENTRATE NEB As Ordered ONE (07:44)
[2019-07-22] MEDS ORDERED: LEVALBUTEROL 1.25 MG/0.5 ML CONCENTRATE NEB INH ONE (08:15)
[2019-07-22] MEDS: CIPROFLOXACIN 400 MG in IV 1 EA IV SCH ×2 (08:58→21:26)
[2019-07-22] MEDS: LR 1,000 ML IV SCH ×4 (08:58→21:56)
[2019-07-22] MEDS: OMEPRAZOLE 20 MG CAP PO SCH (09:09)
[2019-07-22] MEDS: LEVOTHYROXINE 75MCG TABLET (0.075MG) PO SCH (09:09)
[2019-07-22] MEDS: metroNIDAZOLE 500 MG in IV 1 EA IV SCH ×2 (10:04→17:47)
[2019-07-22] MEDS: NORCO, ANEXSIA 5/325MG TABLET (HYDROcodone/ACETAMINOPHEN) PO PRN ×2 (14:05→21:26)
[2019-07-23] VITALS (7 sets, daily range): BP systolic 115–162; BP diastolic 61–85; O2SAT 95
[2019-07-23] MEDS: metroNIDAZOLE 500 MG in IV 1 EA IV SCH ×3 (01:23→16:37)
[2019-07-23] MEDS: NORCO, ANEXSIA 5/325MG TABLET (HYDROcodone/ACETAMINOPHEN) PO PRN ×4 (05:08→20:44)
[2019-07-23] MEDS: LEVOTHYROXINE 75MCG TABLET (0.075MG) PO SCH (05:08)
[2019-07-23] MEDS: LR 1,000 ML IV SCH (05:09)
[2019-07-23 07:04] LABS: BASO % 0.2 % (0.0-1.0); EOS % 0.2 % (0.0-3.0); HEMATOCRIT 35.2 % (36.0-47.0); HEMOGLOBIN 11.5 g/dl (12.0-15.5); LYMPH # 1.3 10^3/uL (1.5-5.0); MEAN CORPUSCULAR HEMOGLOBIN 32.8 pg (27.0-33.0); MEAN CORPUSCULAR HGB CONC 32.7 g/dl (32.0-36.5); MEAN CORPUSCULAR VOLUME 100.3 fl (80.0-96.0); MONO % 7.9 % (0.0-5.0); NEUTROPHILS # 10.8 10^3/uL (1.5-8.5); NEUTROPHILS % 81.3 % (36.0-66.0); PLATELET COUNT, AUTOMATED 248 10^3/uL (150-450); RED BLOOD COUNT 3.51 10^6/uL (4.00-5.40); WHITE BLOOD COUNT 13.2 10^3/uL (4.0-10.0)
[2019-07-23 07:29] LABS: ALBUMIN 2.4 GM/DL (3.2-5.2); ALT/SGPT 18 U/L (12-78); BILIRUBIN,TOTAL 0.4 MG/DL (0.2-1.0); BLOOD UREA NITROGEN 10 MG/DL (7-18); CALCIUM LEVEL 7.7 MG/DL (8.8-10.2); CARBON DIOXIDE LEVEL 28 MEQ/L (21-32); CHLORIDE LEVEL 109 MEQ/L (98-107); CREATININE FOR GFR 0.51 MG/DL (0.55-1.30); GLOMERULAR FILTRATION RATE > 60.0 (>32); GLUCOSE, FASTING 97 MG/DL (70-100); POTASSIUM SERUM 3.5 MEQ/L (3.5-5.1); SODIUM LEVEL 141 MEQ/L (136-145); TOTAL PROTEIN 5.2 GM/DL (6.4-8.2)
[2019-07-23] MEDS: OMEPRAZOLE 20 MG CAP PO SCH (07:58)
[2019-07-23] MEDS: CIPROFLOXACIN 400 MG in IV 1 EA IV SCH ×2 (07:58→21:06)
--- NOTE | 2019-07-23 10:35 | RO ---
DATE OF PROCEDURE: 07/22/2019 PREOPERATIVE DIAGNOSIS: Acute appendicitis. POSTOPERATIVE DIAGNOSIS: Acute appendicitis with abscess, and large right ovarian mass. PROCEDURE PERFORMED: Laparoscopic appendectomy with drainage of abscess. SURGEON: Dr. Kameron Frank ANESTHESIA: General. INDICATIONS FOR PROCEDURE: The patient is an 83-year-old woman who presented to the emergency department on the evening of July 20 with a several-day history of abdominal pain becoming more localized in the right lower quadrant. She had a mildly elevated white blood cell count with tenderness in the right lower quadrant and a CT scan showed inflammatory changes, particularly of the distal portion of the appendix with a small amount of free fluid noted. She was started on antibiotics and because she had eaten shortly before coming to the emergency department, her surgery was delayed slightly to allow 8 hours from the time of her meal until the surgery. OPERATIVE PROCEDURE: The patient was brought to the operating room and placed on the table in a supine position. She was placed under general endotracheal anesthesia. The patient's abdomen was prepped and draped in a sterile fashion. 0.25% Marcaine was infiltrated at each of the trocar sites as needed. Initially, a short midline supraumbilical incision was made and this was deepened to the fascia. A Veress needle was inserted and after positive hanging drop test the abdomen was inflated with carbon dioxide gas. The fascia was incised and a 12 mm port was placed along the midline. The laparoscope was inserted. Initial examination showed no evidence of significant free fluid. There was a pale mass noted in the low right lower quadrant. The liver appeared normal with the exception of a possible small sub centimeter hemangioma on the right lobe. Two 5 mm ports were placed in the left lower quadrant. The patient was tilted to a Trendelenburg position and rolled slightly to the left. Initially, the right lower quadrant/pelvic mass was inspected. This appeared to be at least 7-1/2 cm in diameter and seemed to arise and represent the right ovary. There was a small cystic area clearly representing a thin-walled cyst at the lateral attachments of this mass along the right pelvic sidewall. A photograph was taken for the patient's record. This did not appear to represent a uterine process. Attention was then turned to the appendix. The cecum was clearly identified and the base of the appendix was identified anteriorly with the appendix extending laterally and posteriorly to the lateral aspect of the cecum. There were some inflammatory changes at the lateral aspect where the tissues met the abdominal wall. I gradually broke apart some of this inflammatory tissue and a small abscess was entered with release of some obvious pus. This was suctioned readily from the area. The abscess was further broken open and emptied using the suction night warehouse selector with a very limited area of abdominal tissues exposed to the abscess contents. I elected to divide the base of the appendix and work in a retrograde fashion to perform the appendectomy. Therefore, an opening was created through the mesoappendix at the base and the appendix was then stapled with a linear cutter 45 stapler with a blue load. The staple line appeared excellent with no bleeding. Then using primarily the hook cautery, the appendix was dissected free in a retrograde fashion toward the tip. In areas there were tissue planes that could be opened during dissection. The peritoneum was opened and the tissues of the mesoappendix were divided. The vessels were identified and were thoroughly cauterized before division. The appendix was completely removed and placed in an Endopouch. The right lower quadrant was then irrigated copiously with saline and this was all removed. There did not appear to be any residual fragments of the appendix in the bed of the wound. There was no significant inflammatory debris left at the site of the abscess. I did elect to place a drain in this area. Therefore, a small incision was made in the far right lateral abdomen in the region of the paracolic gutter. A 19-Angolan Ronald drain was placed into the abdomen and directed out through the small incision. The drain was positioned down the inferior portion of the paracolic gutter and across the area where the appendix had resided. The patient was returned to a flat position. It was noted that she had developed some significant abdominal wall swelling from entrapped gas. The abdomen was deflated and the trocars were removed. The appendix was delivered through the supraumbilical site. By some gentle manual compression, much of the gas within the abdominal wall was expressed through the trocar sites. The fascia at the supraumbilical site was then identified and closed with interrupted simple sutures of #2-0 Vicryl. The drain was sutured to the skin with #2-0 silk and the drain site was dressed with a chlorhexidine gluconate OpSite. This was connected to a Shawn-Cunningham bulb. The skin incisions were all closed with buried #4-0 Vicryl and Steri-Strips. Light dressings were applied. The patient tolerated the procedure well without apparent complication. She was awakened in the operating room, extubated and transported to the recovery room in stable condition. DARLYN
--- NOTE | 2019-07-23 11:33 | IPNPDOC ---
Text Note Date of Service The patient was seen on 07/23/19. NOTE Patient stable overnight, afebrile. C/O pain at the right lower qudrant, moder ate bloating but denies nausea On exam slight audible wheeze on upper airway, clear lower breath sounds abdomen, round mild distended and tympanitic to percussion. mildly tender rlq area. 3 port sites dressings C/D/I RUTH drain serous impression acute appendicitis with perforation Patient does not feel well enough to go home. will continue abx today, keep drain today and send home tomorrow, most likely with drain d/cd VS,Fishbone, I+O VS, Fishbone, I+O Laboratory Tests 07/23/19 06:41 Vital Signs Date Time Temp Pulse Resp B/P (MAP) Pulse Ox O2 Delivery O2 Flow Rate FiO2 07/23/19 10:00 98.1 78 20 115/61 (79) 95 Nasal Cannula 2.0 I&O- Last 24 Hours up to 6 AM 07/23/19 06:00 Intake Total 4230 ml Output Total 2380 ml Balance 1850 ml ALVINO KITCHEN MD July 23, 2019 11:33
[2019-07-23] MEDS: MIRALAX *UNIT DOSE* 17GM PACKET PO SCH (11:55)
[2019-07-24] MEDS: metroNIDAZOLE 500 MG in IV 1 EA IV SCH ×3 (01:35→17:20)
[2019-07-24] MEDS: NORCO, ANEXSIA 5/325MG TABLET (HYDROcodone/ACETAMINOPHEN) PO PRN ×4 (01:35→23:49)
[2019-07-24 06:00] VITALS: BP 156/83
[2019-07-24] MEDS: LEVOTHYROXINE 75MCG TABLET (0.075MG) PO SCH (06:02)
[2019-07-24 06:33] LABS: BASO # 0.1 10^3/uL (0.0-0.2); BASO % 0.4 % (0.0-1.0); EOS # 0.1 10^3/uL (0.0-0.5); EOS % 1.1 % (0.0-3.0); HEMATOCRIT 35.9 % (36.0-47.0); HEMOGLOBIN 11.8 g/dl (12.0-15.5); LYMPH # 1.4 10^3/uL (1.5-5.0); LYMPH % 12.2 % (24.0-44.0); MEAN CORPUSCULAR HEMOGLOBIN 32.9 pg (27.0-33.0); MEAN CORPUSCULAR HGB CONC 32.9 g/dl (32.0-36.5); MONO # 0.9 10^3/uL (0.0-0.8); MONO % 8.2 % (0.0-5.0); NEUTROPHILS # 8.9 10^3/uL (1.5-8.5); NEUTROPHILS % 77.7 % (36.0-66.0); PLATELET COUNT, AUTOMATED 279 10^3/uL (150-450); RED BLOOD COUNT 3.59 10^6/uL (4.00-5.40); WHITE BLOOD COUNT 11.4 10^3/uL (4.0-10.0)
[2019-07-24] MEDS: OMEPRAZOLE 20 MG CAP PO SCH (08:28)
[2019-07-24] MEDS: MIRALAX *UNIT DOSE* 17GM PACKET PO SCH (08:28)
[2019-07-24] MEDS: CIPROFLOXACIN 400 MG in IV 1 EA IV SCH ×2 (08:28→20:20)
[2019-07-24] MEDS: DOCUSATE SODIUM 100 MG CAP PO SCH ×2 (10:02→20:21)
[2019-07-24] MEDS: SIMETHICONE 80 MG CHEW TAB PO SCH ×4 (10:02→20:21)
[2019-07-24] MEDS ORDERED: IPRATROPIUM 0.5MG/ALBUTEROL 2.5MG INH SOL UD 3ML (DUONEB)(J7620) NEB PRN (12:00)
[2019-07-24 14:08] VITALS: BP 155/84
[2019-07-24] MEDS: IPRATROPIUM 0.5MG/ALBUTEROL 2.5MG INH SOL UD 3ML (DUONEB)(J7620) NEB SCH ×2 (14:32→20:00)
--- NOTE | 2019-07-24 15:47 | IPN ---
DATE: 07/24/2019 The patient is status post laparoscopic appendectomy. Seems to be making some good progress; however, has had a little bit of an ileus and slow progression to activity. She has some respiratory issues that have been longstanding and with her smoking history has had some oxygen desaturations when she is active, but that seems to be improving over the last 24 hours. She overall has a white count that seems to be dropping nicely and her Shawn-Cunningham (RUTH) is serosanguineous. On her physical exam, abdomen is moderately distended, tympanitic without guarding, without rebound. She states she has a lot of flatus without any bowel movements as of yet. Otherwise, her dressings are clean and dry, and her Shawn-Cunningham drain looks like it is in place and draining serosanguineous fluid. IMPRESSION AND PLAN: The patient is status post appendectomy. Seems to be making some slow but progressive improvement. We will see how she does over the ensuing 12-24 hours, but I anticipate she will probably be discharged to home either tomorrow or Friday, depending on her activity level and her oxygen saturations. I anticipate as her abdominal distension improves, her oxygenation issues should improve as well.
[2019-07-24 20:00] VITALS: BP 153/82
[2019-07-25 01:10] VITALS: O2SAT 96
[2019-07-25] MEDS: IPRATROPIUM 0.5MG/ALBUTEROL 2.5MG INH SOL UD 3ML (DUONEB)(J7620) NEB SCH ×3 (01:54→13:37)
[2019-07-25] MEDS: metroNIDAZOLE 500 MG in IV 1 EA IV SCH ×2 (01:58→08:16)
[2019-07-25] MEDS: LEVOTHYROXINE 75MCG TABLET (0.075MG) PO SCH (05:57)
[2019-07-25 06:00] VITALS: BP 148/77
[2019-07-25] MEDS: CIPROFLOXACIN 400 MG in IV 1 EA IV SCH (08:15)
[2019-07-25] MEDS: SIMETHICONE 80 MG CHEW TAB PO SCH ×2 (08:15→13:00)
[2019-07-25] MEDS: DOCUSATE SODIUM 100 MG CAP PO SCH (08:15)
[2019-07-25] MEDS: OMEPRAZOLE 20 MG CAP PO SCH (08:16)
[2019-07-25] MEDS: MIRALAX *UNIT DOSE* 17GM PACKET PO SCH (08:16)
[2019-07-25] MEDS ORDERED: HYDR-3715 PO (10:13)
[2019-07-25] MEDS: NORCO, ANEXSIA 5/325MG TABLET (HYDROcodone/ACETAMINOPHEN) PO PRN (11:49)
== END 2019-07-25 14:00 | disposition home or self-care (01) ==
LOC: M ED 18:43 → M SDC 21:56 → ENRESERV 22:26 → M MS5PR 23:18 → M SDC 07-25 14:00
PROVIDERS: ATTEND Surgery
DX: K35.33 Acute appendicitis with perforation, localized peritonitis, and gangrene, with abscess (principal); J44.9 Chronic obstructive pulmonary disease, unspecified; E03.9 Hypothyroidism, unspecified; Z79.899 Other long term (current) drug therapy; F17.218 Nicotine dependence, cigarettes, with other nicotine-induced disorders; Z88.0 Allergy status to penicillin
CPT/HCPCS: 36415; 44970; 74176; 80048; 80053; 80076; 81001; 83690; 85025; 87086; 88304; 93005; 94640; 96361; 96365; 96366; 96367; 96375; 96376; 99285; C9113; J0131; J0744; J1100; J1885; J2250; J2270; J2405; J3010

== ENCOUNTER 2019-11-11 13:56 | Emergency (ER) | payer MEDICARE, MEDICAID ==
[~2019-11-11] VITALS: Ht 157.5 cm; Wt 67.2 kg
[~2019-11-11 13:56] MED LIST changes: +ALEN35TA54 PO; +CEPH500C PO; +D31000TA2 PO; +HYDR-3715 PO; +OMEP-221 PO
[2019-11-11] MEDS ORDERED: ACET1TAB55 PO (14:50)
--- NOTE | 2019-11-11 15:51 | REPVR ---
PROCEDURE INFORMATION: Exam: CT Cervical Spine Without Contrast Exam date and time: 11/11/2019 2:59 PM Age: 83 years old Clinical indication: Injury or trauma; Fall; Initial encounter; Blunt trauma TECHNIQUE: Imaging protocol: Computed tomography images of the cervical spine without contrast. Radiation optimization: All CT scans at this facility use at least one of these dose optimization techniques: automated exposure control; mA and/or kV adjustment per patient size (includes targeted exams where dose is matched to clinical indication); or iterative reconstruction. COMPARISON: CR Soft Tissue Neck 06/27/2018 7:31 AM FINDINGS: Vertebrae: No acute fracture. Normal alignment. Discs/Spinal canal/Neural foramina: Moderate/severe degenerative changes of the cervical spine are present. There is moderate multilevel spinal canal stenosis. Moderate/severe neural foraminal narrowing is noted at multiple levels from uncinate spurring and facet arthropathy is noted. Soft tissues: Unremarkable. Lungs: Lung apices are normal. Vasculature: Atherosclerotic calcifications are present at the carotid bifurcations. IMPRESSION: 1. No acute abnormality. 2. Chronic findings as discussed above. Electronically signed by: Florian Muniz On 11/11/2019 15:51:16 PM
--- NOTE | 2019-11-11 15:56 | REPVR ---
PROCEDURE INFORMATION: Exam: CT Head Without Contrast Exam date and time: 11/11/2019 2:59 PM Age: 83 years old Clinical indication: Injury or trauma; Fall; Initial encounter; Blunt trauma (contusions or hematomas) TECHNIQUE: Imaging protocol: Computed tomography of the head without contrast. Radiation optimization: All CT scans at this facility use at least one of these dose optimization techniques: automated exposure control; mA and/or kV adjustment per patient size (includes targeted exams where dose is matched to clinical indication); or iterative reconstruction. COMPARISON: No relevant prior studies available. FINDINGS: Brain: A punctate focus of increased density is noted in the left frontal white matter, likely representing a calcification rather than hemorrhage. An additional subtle calcification may be present on the same image near the right caudate head. There is no acute infarct, cerebral edema, or midline shift. Chronic microvascular ischemic changes are seen in the periventricular white matter. Age-related cerebral and cerebellar volume loss is present. Ventricles: No hydrocephalus. Bones/joints: No acute fracture. Sinuses: There is no acute sinusitis. Mastoid air cells: Minor fluid is noted in the bilateral mastoid air cells. Orbits: The included orbital structures are unremarkable. Vasculature: Atherosclerotic calcifications are seen involving the cavernous carotid arteries. Soft tissues: Unremarkable. IMPRESSION: No acute intracranial abnormality. Electronically signed by: Florian Muniz On 11/11/2019 15:56:47 PM
--- NOTE | 2019-11-11 15:57 | REPVR ---
PROCEDURE INFORMATION: Exam: CT Chest Without Contrast Exam date and time: 11/11/2019 2:59 PM Age: 83 years old Clinical indication: Injury or trauma; Fall; Initial encounter; Blunt trauma (contusions or hematomas); Additional info: Fall- thoracic spine ttp, left ribs ttp TECHNIQUE: Imaging protocol: Computed tomography of the chest without contrast. 3D rendering (Not supervised by radiologist): MIP and/or 3D reconstructed images were created by the technologist. Radiation optimization: All CT scans at this facility use at least one of these dose optimization techniques: automated exposure control; mA and/or kV adjustment per patient size (includes targeted exams where dose is matched to clinical indication); or iterative reconstruction. COMPARISON: CT Chest without contrast 01/14/2018 7:27 PM FINDINGS: Lungs: Emphysematous change, interstitial prominence, and mild airspace disease. No focal pulmonary contusion. Pleural space: No pneumothorax or pleural effusion. Heart: Coronary artery calcification. Aorta: Calcification and ectasia of the thoracic aorta with stable enlargement of the ascending thoracic aorta measuring 3.9 cm in diameter. Lymph nodes: Calcified lymph nodes in association with chronic granulomatous disease. Upper abdomen: Hepatic and splenic granulomata. Poorly characterized 7 mm nodular hypodensity in the liver. Bones/joints: Osteopenia with multiple acute and chronic thoracic spine compression fractures, including an acute T4 compression fracture. Degenerative change and vacuum disc. IMPRESSION: 1. Osteopenia with multiple acute and chronic thoracic spine compression fractures, including an acute T4 compression fracture. 2. Additional findings as described above. Electronically signed by: Romario Mcgee On 11/11/2019 15:58:06 PM
[2019-11-11 16:16] LABS: BASO # 0.1 10^3/uL (0.0-0.2); BASO % 0.7 % (0.0-1.0); EOS # 0.1 10^3/uL (0.0-0.5); EOS % 1.4 % (0.0-3.0); HEMATOCRIT 43.9 % (36.0-47.0); HEMOGLOBIN 14.3 g/dl (12.0-15.5); LYMPH # 1.8 10^3/uL (1.5-5.0); MEAN CORPUSCULAR HEMOGLOBIN 32.1 pg (27.0-33.0); MEAN CORPUSCULAR HGB CONC 32.6 g/dl (32.0-36.5); MEAN CORPUSCULAR VOLUME 98.7 fl (80.0-96.0); MONO # 0.6 10^3/uL (0.0-0.8); MONO % 6.7 % (0.0-5.0); NEUTROPHILS # 6.4 10^3/uL (1.5-8.5); NEUTROPHILS % 70.9 % (36.0-66.0); PLATELET COUNT, AUTOMATED 298 10^3/uL (150-450); RED BLOOD COUNT 4.45 10^6/uL (4.00-5.40); WHITE BLOOD COUNT 9.1 10^3/uL (4.0-10.0)
[2019-11-11 16:30] LABS: ALBUMIN 3.5 GM/DL (3.2-5.2); ALT/SGPT 17 U/L (12-78); BILIRUBIN,DIRECT < 0.1 MG/DL (0.0-0.2); BILIRUBIN,TOTAL 0.3 MG/DL (0.2-1.0); BLOOD UREA NITROGEN 15 MG/DL (7-18); CALCIUM LEVEL 8.8 MG/DL (8.8-10.2); CARBON DIOXIDE LEVEL 30 MEQ/L (21-32); CHLORIDE LEVEL 108 MEQ/L (98-107); CK-MB VALUE MASS < 1.0 NG/ML (<3.6); CPK CREATINE PHOSPHOKINASE 54 U/L (26-192); CREATININE FOR GFR 0.71 MG/DL (0.55-1.30); GLOMERULAR FILTRATION RATE > 60.0 (>32); GLUCOSE, FASTING 79 MG/DL (70-100); LIPASE 100 U/L (73-393); MB/CK RELATIVE INDEX 1.85 (< OR =4); POTASSIUM SERUM 3.8 MEQ/L (3.5-5.1); SODIUM LEVEL 139 MEQ/L (136-145); TOTAL PROTEIN 6.7 GM/DL (6.4-8.2); TROPONIN I < 0.02 NG/ML (< 0.10)
[2019-11-11] MEDS ORDERED: ACETAMINOPH W/CODEINE #3 TAB UD PO ONE (17:45)
--- NOTE | 2019-11-11 18:04 | REPVR ---
PROCEDURE INFORMATION: Exam: CT Lumbar Spine Without Contrast Exam date and time: 11/11/2019 5:32 PM Age: 83 years old Clinical indication: Injury or trauma; Fall; Initial encounter; Blunt trauma (contusions or hematomas); Additional info: Fall, mult thoracic fx's TECHNIQUE: Imaging protocol: Computed tomography images of the lumbar spine without contrast. Radiation optimization: All CT scans at this facility use at least one of these dose optimization techniques: automated exposure control; mA and/or kV adjustment per patient size (includes targeted exams where dose is matched to clinical indication); or iterative reconstruction. COMPARISON: No relevant prior studies available. FINDINGS: Vertebrae: Bone mineralization is decreased, suggestive of osteoporosis. There is no acute fracture of the lumbar spine. Mild levoconvex scoliosis of the lumbar spine is present. There is mild left lateral translocation of L3 with respect L4. Discs/Spinal canal/Neural foramina: Severe degenerative changes of the lumbar spine are present. Vacuum disc phenomenon is noted at T11-T12, L1-L2, L2-L3, and L3-L4. There is severe spinal canal stenosis at L3-L4. Other bones/joints: There is a tiny sclerotic lesion in the left iliac bone. This is nonspecific, but could represent a bone island. There is a possible additional bone island in the L3 vertebra. Reproductive: The partially visualized uterus is enlarged and heterogeneous, possibly related to underlying fibroids. Vasculature: Atherosclerotic calcifications are noted within the aorta and its branches. Soft tissues: Unremarkable. IMPRESSION: 1. No acute abnormality. 2. Chronic findings as discussed above. Electronically signed by: Florian Muniz On 11/11/2019 18:04:40 PM
[2019-11-11 18:22] VITALS: BP 148/87
--- NOTE | 2019-11-24 07:54 | ER ---
DATE: 11/11/2019 REASON FOR CONSULTATION: Thoracic spine fractures. 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 Denies loss of consciousness. She has been complaining of thoracic back pain for the past two days, and one of her friends finally told her to go to the emergency room. So she is complaining of pain in the mid back and that pain wraps around to the front of her chest. She denies numbness or tingling in her arms or legs. She denies being told that she has had prior spine fractures. Pain is 7/10 on a pain scale. It is improved with sitting and rest, made worse with walking. It is described as sharp. For the patients past medical history, past surgical history, medications, allergies, social history, and review of systems, please see the ER intake form. PHYSICAL EXAMINATION: GENERAL: Reveals an elderly female in no distress. Alert and oriented x3. NEUROLOGIC: Appropriate mood and affect. CARDIOVASCULAR: 2+ DP pulse. PULMONARY: Nonlabored breathing. ABDOMEN: Nondistended. SKIN: No obvious skin wounds. MUSCULOSKELETAL: Patient has cervical kyphosis. She is sitting in the chair. She has tenderness to palpation from the upper to lower thoracic spine. No cervical spine tenderness. No significant pain with cervical spine range of motion. Negative Austin's bilaterally. She has intact strength and sensation in her hands. Patient denies any numbness or tingling on her chest. Distally she has 5/5 EHL, FHL, TA, GS and quadriceps. Sensation to light touch L3 to S1 intact bilaterally. She has absent Achilles and patellar tendon reflexes. DIAGNOSTIC STUDIES: CT scan of the cervical, thoracic, and lumbar spine obtained in the emergency room the images are difficult to fully visualize due to the computer system, but most of the images are available. The radiology reports for the cervical CT and the chest CT available for my review. The report on the chest CT is extremely disappointing, it states that there are multiple acute and chronic thoracic spine fractures, but only T4 was singled out by the radiologist. There was no other mention of the other acute fractures. IMPRESSION: There is an acute on chronic compression fracture of T4 with adjacent chronic kyphosis. There is no significant canal compromise. On the lumbar spine CT, the report is pending. There appears to be mild acute compression fractures at T12 and L1. There is no mention of rib fractures. Ribs are not even commented on. ASSESSMENT AND PLAN: Sowmya is an 83-year-old female with acute and chronic thoracic and lumbar compression fractures. She is neurovascularly intact. My recommendation is that she use a TLSO when ambulating. Patient must work with physical therapy to see if she can clear. Options are for her to get admitted to the hospital and have a brace ordered, which likely would not be available until tomorrow. If she does clear PT to go home, she would have to come into the office tomorrow and see one of two PAs and have a TLSO ordered. I explicitly stated to the patient that if she falls without a brace, it could significantly worsen her fracture position and could lead to neurologic deficits including paralysis. The patient has expressed a strong desire to go home regardless. DARLYN
--- NOTE | 2019-12-01 14:45 | ECGEPIP ---
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
== END 2019-11-11 19:48 | disposition left against medical advice (07) ==
LOC: M ED 13:56
DX: S22.039A Unspecified fracture of third thoracic vertebra, initial encounter for closed fracture (principal); S22.049A Unspecified fracture of fourth thoracic vertebra, initial encounter for closed fracture; S22.059A Unspecified fracture of T5-T6 vertebra, initial encounter for closed fracture; S22.089A Unspecified fracture of T11-T12 vertebra, initial encounter for closed fracture; S20.212A Contusion of left front wall of thorax, initial encounter; S09.90XA Unspecified injury of head, initial encounter; W01.0XXA Fall on same level from slipping, tripping and stumbling without subsequent striking against object, initial encounter; Y92.018 Other place in single-family (private) house as the place of occurrence of the external cause; I73.9 Peripheral vascular disease, unspecified; E78.5 Hyperlipidemia, unspecified; M81.0 Age-related osteoporosis without current pathological fracture; E03.9 Hypothyroidism, unspecified; Z79.899 Other long term (current) drug therapy; Z79.890 Hormone replacement therapy; Z88.0 Allergy status to penicillin; F17.210 Nicotine dependence, cigarettes, uncomplicated

== ENCOUNTER 2019-12-22 12:20 | Emergency (ER) | payer MEDICARE, MEDICAID ==
[~2019-12-22] VITALS: Ht 160 cm; Wt 66.3 kg
[~2019-12-22 12:20] MED LIST changes: +ACET1TAB55 PO
[2019-12-22] MEDS ORDERED: ALEN70TA74 PO (12:28)
[2019-12-22] MEDS ORDERED: TRIA1OI TOP (14:11)
[2019-12-22] MEDS ORDERED: methylPREDNISolone 125MG 2ML VIAL IM ONE (14:15)
[2019-12-22 14:30] VITALS: BP 124/68
== END 2019-12-22 14:37 | disposition home or self-care (01) ==
LOC: M ED 12:20
DX: R21 Rash and other nonspecific skin eruption (principal); E78.5 Hyperlipidemia, unspecified; G89.29 Other chronic pain; M54.9 Dorsalgia, unspecified; M81.0 Age-related osteoporosis without current pathological fracture; K21.9 Gastro-esophageal reflux disease without esophagitis; F17.200 Nicotine dependence, unspecified, uncomplicated; Z79.899 Other long term (current) drug therapy; Z88.0 Allergy status to penicillin
CPT/HCPCS: 96372; 99283; J2930

== ENCOUNTER 2020-04-04 15:21 | Inpatient (IN) | payer MEDICARE, MEDICAID ==
[~2020-04-04] VITALS: Ht 160 cm; Wt 65.2 kg
[~2020-04-04 15:21] MED LIST changes: +ALEN70TA82 PO; +TRIA1OI TOP
--- OUTSIDE RECORDS SUMMARY | 2020-04-04 15:27 | CCD | Continuity of Care Document ---
Author Author Sowmya SMITH D.O. Organization Unknown Address 3 [facility] [address] [place] [address] Phone [phone] Problems Active Problems Provider Date Hypothyroidism Nagi Smith D.O., PRITESH Onset: 11/22 Gastroesophageal reflux disease Nagi Smith D.O., PRITESH Onset: 12/08/2018 Difficulty breathing Nagi Smith D.O., RICFP Onset: Postherpetic neuralgia Nagi Smith D.O., PRITESH Onset: 0 12/08/2018 Smoker Nagi Smith D.O., RICFP Onset: 11/22 Hypercalcemia Nagi Smith D.O., RICFP Onset: 12/22 Social History Type Date Description Comments Sex Unknown ETOH Use Denies alcohol use Recreational Drug Use Denies Drug Use Tobacco Use Start: Unknown End: Unknown Patient is a former smoker Smoking Status Reviewed: 11/08/19 Patient is a former smoker Allergies, Adverse Reactions, Alerts Active Allergies Reaction Severity Comments Date Penicillin 12/08/2018 Medications Active Medications SIG Qnty Indications Ordering Provide r Date Alendronate Sodium 35mg Tablets take 1 tablet by mouth once a week on empty stomach full glass of water do not lay down or eat for at least 1 hour after taking med 12tabs Nagi Smith D.O., FAAFP 01/29/2019 Levothyroxine Sodium 75mcg Tablets take 1 tablet by mouth once daily . do not exceed 1 per 24 hours 30tabs Nagi Smith D.O., FAAFP 12/10/2018 Gabapentin 400mg Capsules take 1 capsule by mouth 4 times daily 120caps Nagi Smith D.O., [facility] 12/08/[address] take 1 capsule by mouth once daily 90caps Nagi Smith D.O., [facility] 12/08/2018 Prevnar 13 Suspension as directed 1dose Nagi Smith D.O., [facility] 12/08/2018 Ventolin HFA 108(90Base) mcg/Act A erosol 2 puffs Q 12 HRS prn 8gm Nagi Smith D.O., [facility] 12/08/2018 Vitamin D 1000Unit Tablets 1 by mouth every day Unknown Calcium 500mg Tablets 1 by mouth twice a day Unknown Mucinex 600mg Tablets ER 12HR Unknown Acetaminophen-Codeine #3 300-30mg Tablets one tab po every 6 hours as needed for pain ([place]. S[place]h Leal [facility] [place] Unknown History Medications Hydroxyzine HCL 25mg Tablets one tab po daily, may take second dose if needed 14tabs Nagi Smith D.O., [facility] 12/16/2019 - 12/23/2019 Tramadol HCL 50mg Tablets one tab by mouth daily x 7 days ([place]: [id number]) 7tabs [facility] 11/16/2019 - 11/23/2019 Cephalexin 500mg Capsules take one cap po tid x 10 days 30caps Nagi Smith D.O., [facility] - 07/29/2019 Immunizations CPT Code Status Date Vaccine Lot # [id number] Refused 01/11/2020 Influenza Virus Vaccine, Quadrivalent, Slit Virus, Im Use 3Y & Up [id number] Refused 01/21/2019 Influenza Virus Vaccine, Quadrivalent, Slit Virus, Im Use 3Y & Up [id number] Refused 01/21/2019 Prevnar 13 Pneum o. Conj Ped. Vaccine 13 Valent ([id number]) For Im Use Vital Signs Date Vital Result Comment 01/11/2020 1:49pm BP Systolic 100 mmHg BP Diastolic 64 mmHg Body Temperature 98.2 F Heart Rate 94 /min Respiratory Rate 18 /min Height 62.50 inches 5'2.50" Weight 145.00 lb [place] Body Weight 110 lb BMI (Body Mass Index) 26.1 kg/m2 O2 % BldC Oximetry 97 % 12/21/2019 1:08pm BP Systolic 116 mmHg BP Diastolic 68 mmHg Body Temperature 97.1 F Heart Rate 72 /min Respiratory Rate 18 /min Height 62.50 inches 5'2.50" Weight 147.00 lb [place] Body Weight 110 lb BMI (Body Mass Index) 26.5 kg/m2 O2 % BldC Oximetry 97 % Results Test Acquired Date Facility Test Result H/L Range Note Laboratory test finding [place] [facility] [place] 0-20 Laboratory test finding 01/11/2020 [facility] [place] Vitamin D, 25-Hydroxy 46.6 ng/mL 30.0-100.0 1 CBC 01/11/2020 [facility] WBC 6.7 10E3/uL 4.1 - 10.9 2 RBC 4.07 10E6/uL Low 4.20 - 6.30 HGB 13.7 g/dL 12.0 - 18.0 HCT 40.2 % 37.0 - 51.0 MCV 98.8 fL High 80.0 - 97.0 MCH 33.7 pg High 26.0 - 32.0 MCHC 34.1 g/dL 31.0 - 36.0 PLT 311 10E3/uL 140 - 440 RDW-CV 13.4 % 11.5 - 14.5 Lym% 27.7 % 10.0 - 58.5 Neut% 65.3 % 37.0 - 92.0 MXD% 7.0 % 0.1 - 24.0 Lym# 1.9 10E3/uL 0.6 - 4.1 Neut# 4.3 % 2.0 - 7.8 MXD# 0.5 10E3/uL 0.0 - 1.8 MPV 11.1 fL 9.0 - 13.0 Laboratory test finding 01/11/2020 [facility] CK 34 U/L 26 - 192 CMP 01/11/2020 [facility] Glu 91 mg/dL 70 - 110 BUN 19 mg/dL 8 - 23 Creat 0.8 mg/dL 0.5 - 1.0 BUN/Creatinine Ratio 25.0 CALC Na 141 mmol/L 136 - 145 K 4.6 mmol/L 3.5 - 5.1 CL 104.4 mmol/L 98.0 - 107.0 Co2 27.0 mmol/L 22.0 - 29.0 CA 9.2 mg/dL 8.6 - 10.2 TP 5.7 g/dL Low 6.6 - 8.7 Alb 3.9 g/dL 3.4 - 4.8 A/G Ratio 2.1 CALC Globulin 1.8 CALC Alp 101.7 U/L 35 - 129 Alt (SGPT) 10 U/L 0 - 41 Ast (Sgot) 15 U/L 0 - 40 Tbili 0.08 mg/dL 0.0 - 1.2 Osmolality-Calculated 284.1 CALC Anion Gap 15 mmol/L eGFR 78 # Calc 3 eGFR Non-Afr. French 68 # Calc 4 Lipid Panel 01/11/2020 [facility] Chol 220 mg/dL High 0 - 200 Trig 149 mg/dL 40 - 200 HDL 68 mg/dL High 45 - 65 LDL_C 122 Calc 75 - 129 Cho/HDL Ratio 3.2 CALC Laboratory test finding 01/11/2020 [facility] TSH <pending> CBC With Differential 11/11/2019 [facility] (Interface) [phone] White Blood Count 9.1 10 Normal 4.0-10.0 Red Blood Count 4.45 10 Normal 4.00-5.40 Hemoglobin 14.3 g/dL Normal 12.0-15.5 Hematocrit 43.9 % Normal 36.0-47.0 Mean Corpuscular Volume 98.7 fl High 80.0-96.0 Mean Corpuscular Hemoglobin 32.1 pg Normal 27.0-33.0 Mean Corpuscular HGB Conc 32.6 g/dL Normal 32.0-36.5 Red Cell Distribution Width 13.1 % Normal 11.5-14.5 Platelet Count, Automated 298 10 Normal 150-450 Neutrophils % 70.9 % High 36.0-66.0 Lymph % 20.0 % Low 24.0-44.0 [place] % 6.7 % High 0.0-5.0 Eos % 1.4 % Normal 0.0-3.0 Baso % 0.7 % Normal 0.0-1.0 Immature Granulocyte % 0.3 % Normal 0-3.0 Nucleated Red Blood Cell % 0.0 % Normal 0-0 Neutrophils # 6.4 10 Normal 1.5-8.5 Lymph # 1.8 10 Normal 1.5-5.0 [place] # 0.6 10 Normal 0.0-0.8 Eos # 0.1 10 Normal 0.0-0.5 Baso # 0.1 10 Normal 0.0-0.2 Cardiac Marker Panel 11/11/2019 [facility] ( Interface) [phone] CPK Creatine Phosphokinase 54 U/L Normal 26-19 2 CK-MB Value Mass < 1.0 NG/ML Normal <3.6 MB/CK Relative Index 1.85 Normal < Or =4 5 Troponin I < 0.02 NG/ML Normal < 0.10 6 Liver Profile 11/11/2019 [facility] (I nterface) [phone] Ast/Sgot 15 U/L Normal 7-37 Alt/SGPT 17 U/L Normal 12-78 Alkaline Phosphatase 112 U/L Normal 45-117 Bilirubin,Total 0.3 mg/dL Normal 0.2-1.0 Bilirubin,Direct < 0.1 mg/dL Normal 0.0-0.2 Total Protein 6.7 GM/DL Normal 6.4-8.2 Albumin 3.5 GM/DL Normal 3.2-5.2 Albumin/Globulin Ratio 1.1 Low 1.2-2.2 Basic Metabolic Profile 11/11/2019 [facility] (Interface) [phone] Glucose, Fasting 79 mg/dL Normal 70-100 Blood Urea Nitrogen 15 mg/dL Normal 7-18 Creatinine For GFR 0.71 mg/dL Normal 0.55-1.30 Glomerular Filtration Rate > 60.0 Normal >32 7 Sodium Level 139 mEq/L Normal 136-145 Potassium Serum 3.8 mEq/L Normal 3.5-5.1 Chloride Level 108 mEq/L High 98-107 Carbon Dioxide Level 30 mEq/L Normal 21-32 Anion Gap 1 mEq/L Low 8-16 Calcium Level 8.8 mg/dL Normal 8.8-10.2 Laboratory test finding 11/11/2019 [facility] (Interface) [phone] Lipase 100 U/L Normal 73-393 8 Laboratory test finding 09/02/2019 [facility] TSH 2.482 ulU/mL 0.60 - 4.8 Laboratory test finding 09/02/2019 [facility] CK 58 U/L 26 - 192 9 Basic Metabolic Panel 09/02/2019 [facility] Glu 77 mg/dL 70 - 110 BUN 15 mg/dL 8 - 23 Creat 0.7 mg/dL 0.5 - 1.0 BUN/Creatinine Ratio 21.4 CALC Co2 24.8 mmol/L 22.0 - 29.0 CA 9.5 mg/dL 8.6 - 10.2 Na 139 mmol/L 136 - 145 K 4.6 mmol/L 3.5 - 5.1 CL 102.7 mmol/L 98.0 - 107.0 Anion Gap 16 mmol/L eGFR 92 # Calc 10 eGFR Non-Afr. French 80 # Calc 11 CBC 09/02/2019 [facility] WBC 11.1 10E3/uL High 4.1 - 10.9 RBC 3.69 10E6/uL Low 4.20 - 6.30 HGB 11.6 g/dL Low 12.0 - 18.0 HCT 35.7 % Low 37.0 - 51.0 MCV 96.7 fL 80.0 - 97.0 MCH 31.4 pg 26.0 - 32.0 MCHC 32.5 g/dL 31.0 - 36.0 PLT 391 10E3/uL 140 - 440 RDW-CV 14.9 % High 11.5 - 14.5 Lym% 21.9 % 10.0 - 58.5 Neut% 66.3 % 37.0 - 92.0 MXD% 11.8 % 0.1 - 24.0 Lym# 2.4 10E3/uL 0.6 - 4.1 Neut# 7.4 % 2.0 - 7.8 MXD# 1.3 10E3/uL 0.0 - 1.8 MPV 11.4 fL 9.0 - 13.0 CBC With Differential 07/24/2019 [facility] ([facility]) [phone] White Blood Count 11.4 10 High 4.0-10.0 Red Blood Count 3.59 10 Low 4.00-5.40 Hemoglobin 11.8 g/dL Low 12.0-15.5 Hematocrit 35.9 % Low 36.0-47.0 Mean Corpuscular Volume 100.0 fl High 80.0-96.0 Mean Corpuscular Hemoglobin 32.9 pg Normal 27.0-33.0 Mean Corpuscular HGB Conc 32.9 g/dL Normal 32.0-36.5 Red Cell Distribution Width 13.5 % Normal 11.5-14.5 Platelet Count, Automated 279 10 Normal 150-450 Neutrophils % 77.7 % High 36.0-66.0 Lymph % 12.2 % Low 24.0-44.0 [place] % 8.2 % High 0.0-5.0 Eos % 1.1 % Normal 0.0-3.0 Baso % 0.4 % Normal 0.0-1.0 Immature Granulocyte % 0.4 % Normal 0-3.0 Nucleated Red Blood Cell % 0.0 % Normal 0-0 Neutrophils # 8.9 10 High 1.5-8.5 Lymph # 1.4 10 Low 1.5-5.0 [place] # 0.9 10 High 0.0-0.8 Eos # 0.1 10 Normal 0.0-0.5 Baso # 0.1 10 Normal 0.0-0.2 CBC With Differential 07/23/2019 [facility] ([facility]) [phone] White Blood Count 13.2 10 High 4.0-10.0 Red Blood Count 3.51 10 Low 4.00-5.40 Hemoglobin 11.5 g/dL Low 12.0-15.5 Hematocrit 35.2 % Low 36.0-47.0 Mean Corpuscular Volume 100.3 fl High 80.0-96.0 Mean Corpuscular Hemoglobin 32.8 pg Normal 27.0-33.0 Mean Corpuscular HGB Conc 32.7 g/dL Normal 32.0-36.5 Red Cell Distribution Width 13.5 % Normal 11.5-14.5 Platelet Count, Automated 248 10 Normal 150-450 Neutrophils % 81.3 % High 36.0-66.0 Lymph % 10.0 % Low 24.0-44.0 [place] % 7.9 % High 0.0-5.0 Eos % 0.2 % Normal 0.0-3.0 Baso % 0.2 % Normal 0.0-1.0 Immature Granulocyte % 0.4 % Normal 0-3.0 Nucleated Red Blood Cell % 0.0 % Normal 0-0 Neutrophils # 10.8 10 High 1.5-8.5 Lymph # 1.3 10 Low 1.5-5.0 [place] # 1.0 10 High 0.0-0.8 Eos # 0.0 10 Normal 0.0-0.5 Baso # 0.0 10 Normal 0.0-0.2 Comprehensive Metabolic Profil 07/23/2019 [facility]) [phone] Glucose, Fasting 97 mg/dL Normal 70-100 Blood Urea Nitrogen 10 mg/dL Normal 7-18 Creatinine For GFR 0.51 mg/dL Low 0.55-1.30 Glomerular Filtration Rate > 60.0 Normal >32 1 2 Sodium Level 141 mEq/L Normal 136-145 Potassium Serum 3.5 mEq/L Normal 3.5-5.1 Chloride Level 109 mEq/L High 98-107 Carbon Dioxide Level 28 mEq/L Normal 21-32 Anion Gap 4 mEq/L Low 8-16 Calcium Level 7.7 mg/dL Low 8.8-10.2 Ast/Sgot 14 U/L Normal 7-37 Alt/SGPT 18 U/L Normal 12-78 Alkaline Phosphatase 85 U/L Normal 45-117 Bilirubin,Total 0.4 mg/dL Normal 0.2-1.0 Total Protein 5.2 GM/DL Low 6.4-8.2 Albumin 2.4 GM/DL Low 3.2-5.2 Albumin/Globulin Ratio 0.86 Low 1.00-1.93 Laboratory test finding 07/22/2019 [facility] ([facility]) [phone] Bedside Glucose 97 mg/dL Normal 83-110 Ua W/ Reflex To Culture 07/21/2019 [facility]) [phone] Appearance, Urine RFX CLEAR Normal Clear Color, Urine RFX YELLOW Normal Yellow PH,Urine RFX 5.0 units Normal 5.0-9.0 Specific [place] Ur Auto RFX 1.024 Normal 1.002-1.035 Protein, Urine Auto RFX NEGATIVE mg/dL Normal Negative Glucose, Urine (Ua) Auto RFX NEGATIVE mg/dL Normal Negative Ketone, Urine Auto RFX NEGATIVE mg/dL Normal Negative Urobilinogen, Urine Auto RFX 0.2 mg/dL Normal 0.0-2.0 Bilirubin, Urine Auto RFX NEGATIVE Normal Negative Nitrite, Urine Auto RFX NEGATIVE Normal Negative Leukocyte Esterase Ur Auto RFX 2+ High Negative Blood, Urine Blood RFX NEGATIVE Normal Negative WBC, Urine Auto RFX 14 /HPF High 0-3 RBC, Urine Auto RFX 1 /HPF Normal 0-3 Bacteria, Urine Auto RFX NEGATIVE Normal Negative Squam Epithelial Cell Ur Aurfx 0 /HPF Normal 0-6 Mucus, Urine RFX SMALL Normal Negative Hyaline Cast, Urine Auto RFX 0 /LPF Normal 0-1 Reflex Urine Culture 07/21/2019 [facility]) [phone] Reflex Urine Culture FULL REPORT IN L <SEE NOTE> Norm al 13 CBC With Differential 07/21/2019 [facility]) [phone] White Blood Count 12.5 10 High 4.0-10.0 Red Blood Count 3.73 10 Low 4.00-5.40 Hemoglobin 12.0 g/dL Normal 12.0-15.5 Hematocrit 36.9 % Normal 36.0-47.0 Mean Corpuscular Volume 98.9 fl High 80.0-96.0 Mean Corpuscular Hemoglobin 32.2 pg Normal 27.0-33.0 Mean Corpuscular HGB Conc 32.5 g/dL Normal 32.0-36.5 Red Cell Distribution Width 13.3 % Normal 11.5-14.5 Platelet Count, Automated 283 10 Normal 150-450 Neutrophils % 78.6 % High 36.0-66.0 Lymph % 9.4 % Low 24.0-44.0 [place] % 10.0 % High 0.0-5.0 Eos % 1.0 % Normal 0.0-3.0 Baso % 0.6 % Normal 0.0-1.0 Immature Granulocyte % 0.4 % Normal 0-3.0 Nucleated Red Blood Cell % 0.0 % Normal 0-0 Neutrophils # 9.9 10 High 1.5-8.5 Lymph # 1.2 10 Low 1.5-5.0 [place] # 1.3 10 High 0.0-0.8 Eos # 0.1 10 Normal 0.0-0.5 Baso # 0.1 10 Normal 0.0-0.2 Liver Profile 07/21/2019 [facility] (I nterfa) [phone] Ast/Sgot 12 U/L Normal 7-37 Alt/SGPT 16 U/L Normal 12-78 Alkaline Phosphatase 92 U/L Normal 45-117 Bilirubin,Total 0.3 mg/dL Normal 0.2-1.0 Bilirubin,Direct < 0.1 mg/dL Normal 0.0-0.2 Total Protein 5.7 GM/DL Low 6.4-8.2 Albumin 2.8 GM/DL Low 3.2-5.2 Albumin/Globulin Ratio 0.97 Low 1.00-1.93 Basic Metabolic Profile 07/21/2019 [facility] (Interface) [phone] Glucose, Fasting 110 mg/dL High 70-100 Blood Urea Nitrogen 18 mg/dL Normal 7-18 Creatinine For GFR 0.62 mg/dL Normal 0.55-1.30 Glomerular Filtration Rate > 60.0 Normal >32 1 4 Sodium Level 141 mEq/L Normal 136-145 Potassium Serum 3.8 mEq/L Normal 3.5-5.1 Chloride Level 109 mEq/L High 98-107 Carbon Dioxide Level 30 mEq/L Normal 21-32 Anion Gap 2 mEq/L Low 8-16 Calcium Level 8.5 mg/dL Low 8.8-10.2 Laboratory test finding 07/21/2019 [facility] (Interface) [phone] Lipase 88 U/L Normal 73-393 15 U/A DIP FPA 07/21/2019 [facility] Practice Asso ciates Color Urine YELLOW Yellow Appearance CLEAR Clear Specific [place] 1.020 1.00-1.03 PH Urine 6.5 5.0-8.0 Glucose Urine NEG Negative Bilirubin Urine NEG Negative Ketones NEG Negative Blood Urine TRACE Negative Protein Urine TRACE Negative Urobilinogen .2 EU/dl 0.2-1.0 Nitrite NEG Negative Leukocytes 1+ High Negative CBC 07/21/2019 [facility] WBC 9.6 10E3/uL 4.1 - 10.9 RBC 4.23 10E6/uL 4.20 - 6.30 HGB 13.8 g/dL 12.0 - 18.0 HCT 41.7 % 37.0 - 51.0 MCV 98.6 fL High 80.0 - 97.0 MCH 32.6 pg High 26.0 - 32.0 MCHC 33.1 g/dL 31.0 - 36.0 PLT 316 10E3/uL 140 - 440 RDW-CV 13.7 % 11.5 - 14.5 Lym% 12.1 % 10.0 - 58.5 Neut% 81.7 % 37.0 - 92.0 MXD% 6.2 % 0.1 - 24.0 Lym# 1.2 10E3/uL 0.6 - 4.1 Neut# 7.8 % 2.0 - 7.8 MXD# 0.6 10E3/uL 0.0 - 1.8 MPV 10.7 fL 9.0 - 13.0 CMP 07/21/2019 [facility] Glu 130 mg/dL High 70 - 110 BUN 16 mg/dL 8 - 23 Creat 0.7 mg/dL 0.5 - 1.0 BUN/Creatinine Ratio 22.8 CALC Na 138 mmol/L 136 - 145 K 3.9 mmol/L 3.5 - 5.1 CL 102.6 mmol/L 98.0 - 107.0 Co2 23.1 mmol/L 22.0 - 29.0 CA 9.0 mg/dL 8.6 - 10.2 TP 5.8 g/dL Low 6.6 - 8.7 Alb 3.8 g/dL 3.4 - 4.8 A/G Ratio 1.8 CALC Globulin 2.1 CALC Alp 104.5 U/L 35 - 129 Alt (SGPT) 10 U/L 0 - 41 Ast (Sgot) 14 U/L 0 - 40 Tbili 0.28 mg/dL 0.0 - 1.2 Osmolality-Calculated 278.5 CALC Anion Gap 16 mmol/L eGFR 92 # Calc 16 eGFR Non-Afr. French 80 # Calc 17 1 Vitamin D deficiency has bee n defined by the [place] [employer] and an Endocrine Society practice guideline as a level of serum 25-OH vitamin D less than 20 ng/mL (1,2). The Endocrine Society went on to further define vitamin D insufficiency as a level between 21 and 29 ng/mL (2). 1. IOM ([place] [employer]). 2010. Di etary reference intakes for calcium and D. [place]: The National Academies Press. 2. Ashish PADRON, Tricia REYNAGA, Wilfred mueller MALLOY, et al. Evaluation, treatment, and prevention of vitamin D deficiency: an Endocrine Society clinical practice guideline. JCEM. 2010; 96(7):1911-30. 2 NORMAL RANGES Age WBC RBC HGB HCT MCV PLT Adult M 4.1-10.9 4.20-6.30 12.0-18.0 37.0-51.0 80-97 140-440 Adult F 4.1-10.9 4.04-5.48 12.0-18.0 37.0-51.0 80-97 140-440 0 -1 Yr 5.0-20.0 3.9-5.9 15-18 MV: 44 MV: 91 MV: 277 2-9 Yr. 6.0-17.0 3.8-5.4 11-13 MV: 37 MV: 78 MV: 300 10 Yrs. 5.0-13.0 3.8-5.4 12-15 MV: 39 MV: 80 MV: 250 NOTE: * FOR ADULT BLACK MALES AND FEMALES, NORMAL WBC IS 2.9-7.7 K/ML * FOR ADULT BLACK MALES AND FEMALES, NORMAL RBC,HGB, AND HCT IS 5% LESS SOURCE FOR DATA: [employer] 1800 OPERATION MANUAL( AUTOMATED BLOOD COUNTS AND DIFF.) APPENDIX B-3 CHRONIC KIDNEY DISEASE STAGING PER NKF: MALE GFR INTERPRETATION: 20-49 YRS: >60 mL/min Normal 50-59 YRS: >56 mL/min Normal 60-69 YRS: >49 mL/min Normal 70-79 YRS: >42 mL/min Normal 80 and above >35 mL/min Normal FEMALE GRF INTERPRETATION: 20-39 YRS: >60 mL/min Normal 40-49 YRS: >58 mL/min Normal 50-59 YRS: >51 mL/min Normal 60-69 YRS: >45 mL/min Normal 70-79 YRS: >39 mL/min Normal 80 and above >32 mL/min NormalCLASSIFICATION CHOLESTEROL FOR ADULTS CHILDREN/ADOLESCENTS* DESIRABLE: <200 MG/DL <170 MG/DL BORDER-LINE HIGH RISK: 200-239 MG/DL 170-199 MG/DL HIGH RISK: >240 MG/DL >200 MG/DL CLASS. FOR PRIMARY LDL CHOL PREVENTION: LDL CHOL-CHILD/ADOLESCENTS* DESIRABLE: <130 MG/DL <110 MG/DL BORDERLINE-HIGH RISK: 130-159 MG/DL 110-129 MG/DL HIGH RISK: >160 MG/DL >130 MG/DL *CHILDREN AND ADOLESCENTS REPRESENTS INDIVIDUALA AGED 2-19 YEARS EXCLUSIVE. 3 CKD-EPI 4 CKD-EPI 5 DIAGNOSIS CRITERIA MMB ng/ml Relative Index (RI) NON-AMI < or = 5 N/A SOMMER ZONE > 5 < or = 4 AMI > 5 > 4 6 Troponin I Reference Interva l for Divvyshot LOCI: 99th Percentile= 0.00-0.045 ng/ml Risk Stratification: <= 0.10 ng/ml Decreased Risk for Adverse Clinical Events. 0.10-1.50 ng/ml Increased Risk for Adv erse Clinical Events. Evaluation of additional criterion and/or repeat testing in 2-6 hours is suggested to rule out myocardial damage. >= 1.50 ng/ml Indicative of Myocardial Injury. 7 Units are mL/min/1.73 m2 Chronic Kidney Disease Staging per NKF: Stage I & II GFR >=60 Normal to Mildly Decreased Stage III GFR 30-59 Moderately Decreased Stage IV GFR 15-29 Severely Decreased Stage V GFR <15 Very Little GFR Left ESRD GFR <15 on LONGWALL MACHINE OPERATOR HELPER 8 note:<nlbl:demographic_chang ed> 9 NORMAL RANGES Age WBC RBC HGB HCT MCV PLT Adult M 4.1-10.9 4.20-6.30 12.0-18.0 37.0-51.0 80-97 140-440 Adult F 4.1-10.9 4.04-5.48 12.0-18.0 37.0-51.0 80-97 140-440 0 -1 Yr 5.0-20.0 3.9-5.9 15-18 MV: 44 MV: 91 MV: 277 2-9 Yr. 6.0-17.0 3.8-5.4 11-13 MV: 37 MV: 78 MV: 300 10 Yrs. 5.0-13.0 3.8-5.4 12-15 MV: 39 MV: 80 MV: 250 NOTE: * FOR ADULT BLACK MALES AND FEMALES, NORMAL WBC IS 2.9-7.7 K/ML * FOR ADULT BLACK MALES AND FEMALES, NORMAL RBC,HGB, AND HCT IS 5% LESS SOURCE FOR DATA: [employer] DYN 1800 OPERATION MANUAL( AUTOMATED BLOOD COUNTS AND DIFF.) APPENDIX B-3 CHRONIC KIDNEY DISEASE STAGING PER NKF: MALE GFR INTERPRETATION: 20-49 YRS: >60 mL/min Normal 50-59 YRS: >56 mL/min Normal 60-69 YRS: >49 mL/min Normal 70-79 YRS: >42 mL/min Normal 80 and above >35 mL/min Normal FEMALE GRF INTERPRETATION: 20-39 YRS: >60 mL/min Normal 40-49 YRS: >58 mL/min Normal 50-59 YRS: >51 mL/min Normal 60-69 YRS: >45 mL/min Normal 70-79 YRS: >39 mL/min Normal 80 and above >32 mL/min Normal 10 CKD-EPI 11 CKD-EPI 12 Units are mL/min/1.73 m2 Chronic Kidney Disease Staging per NKF: Stage I & II GFR >=60 Normal to Mildly Decreased Stage III GFR 30-59 Moderately Decreased Stage IV GFR 15-29 Severely Decreased Stage V GFR <15 Very Little GFR Left ESRD GFR <15 on LONGWALL MACHINE OPERATOR HELPER 13 FULL REPORT IN LAB NOTES ([facility] and [employer]). NO GROWTH CLINICAL SIGNIFICANCE 1 ORGANISM 14 Units are mL/min/1.73 m2 Chronic Kidney Disease Staging per NKF: Stage I & II GFR >=60 Normal to Mildly Decreased Stage III GFR 30-59 Moderately Decreased Stage IV GFR 15-29 Severely Decreased Stage V GFR <15 Very Little GFR Left ESRD GFR <15 on LONGWALL MACHINE OPERATOR HELPER 15 note:<nlbl:demographic_chang ed> 16 CKD-EPI 17 CKD-EPI Procedures Description No Information Available Medical Devices Description No Information Available Encounters Type Date Location Provider Dx Diagnosis Office Visit 01/11/2020 1:30p [place] [facility] Pat Mcnamara, FAAFP K21.9 Gastro-esophageal reflux disease without esophagitis E03.9 Hypothyroidism, unspecified Z72.0 Tobacco use M54.9 Dorsalgia, unspecified 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 Office Visit 12/21/2019 1:00p [place] [facility] Diaz Maldonado PA L28.2 Other prurigo Office Visit 12/16/2019 1:[address]p [facility] Diaz Maldonado, PA L28.2 Other prurigo Office Visit 11/23/2019 1:[address] [facility] [address] [facility] Diaz Maldonado, PA S22.009A Unsp fracture of unsp thoracic vertebra, init for clos fx Office Visit 11/16/2019 2:40p [place] [facility] Eliud Maldonado PA S22.009A Unsp fracture of unsp thoracic vertebra, init for clos fx Office Visit 11/09/2019 3:00[address] [facility] Pat Mcnamara, FAAFP K21.9 Gastro-esophageal reflux disease without esophagitis E03.9 Hypothyroidism, unspecified R01.1 Cardiac murmur, unspecified W18.39xA Other fall on same level, in itial encounter Office Visit 09/02/2019 1:[address] [facility] Pat Mcnamara, FAAFP K21.9 Gastro-esophageal reflux disease without esophagitis E03.9 Hypothyroidism, unspecified Z72.0 Tobacco use D64.9 Anemia, unspecified Office Visit 07/29/2019 2:30p [facility] [address] [facility] Pat Mcnamara, FAAFP R10.819 Abdominal tenderness, unspecified site K21.9 Gastro-esophageal reflux dis ease without esophagitis Office Visit 07/21/2019 10:[address]a [facility] Erica Longaleshia Yanez, PA R10.9 Unspecified abdominal pain Assessments Date Code Description Provider 01/11/2020 K21.9 Gastro-esophageal reflux disease without esophagitis Nagi Smith D.O., FAAFP 01/11/2020 E03.9 Hypothyroidism, unspecified Santi Smith D.O., FAAFP 01/11/2020 Z72.0 Tobacco use Nagi Smith D.O., FAAFP 01/11/2020 M54.9 Dorsalgia, unspecified Nagi Smith D.O., FAAFP 01/11/2020 E04.1 Nontoxic single thyroid nodule K miranda Smith D.O., FAAFP 12/21/2019 L28.2 Pruritic rash Long Maldonado, PA 12/16/2019 L28.2 Pruritic rash Long Maldonado, PA 11/23/2019 S22.009A Fracture of thoracic spine Lacey Salvador, PA 11/16/2019 S22.009A Fracture of thoracic spine Lacey Salvador, [place] 11/09/2019 K21.9 Gastro-esophageal reflux disease without esophagitis Nagi Smith D.O., FAAFP 11/09/2019 E03.9 Hypothyroidism, unspecified Santi Smith D.O., FAAFP 11/09/2019 R01.1 Cardiac murmur, unspecified Santi Smith D.O., FAAFP 11/09/2019 W18.39xA Other fall on same level, initia l encounter Nagi Smith D.O., FAAFP 09/02/2019 K21.9 Gastro-esophageal reflux disease without esophagitis Nagi Smith D.O., FAAFP 09/02/2019 E03.9 Hypothyroidism, unspecified Santi Smith D.O., FAAFP 09/02/2019 Z72.0 Tobacco use Nagi Smith D.O., FAAFP 09/02/2019 D64.9 Anemia Nagi Smith D.O., FAAFP 07/29/2019 R10.819 Abdominal tenderness, unspecifie d site Nagi Smith D.O., [facility] 07/29/2019 K21.9 Gastro-esophageal reflux disease without esophagitis Nagi Smith D.O., [facility] 07/21/2019 R10.9 Unspecified abdominal pain Golden Smith D.O., [facility] 07/21/2019 R10.9 Unspecified abdominal pain Lacey Salvador PA Plan of Treatment No Information Available Functional Status Description No Information Available Mental Status Description No Information Available Referrals Refer to Reason for Referral Status Appt Date Alisson Smith M.D. please eval pt with osteopor osis with recent fall at home in october with multi Fx of spine please send orthopedic note on fosamax 35 mg weekly Created [facility] [address], [place] [address] [phone] Fermin Greenfield M.D. PLEASE EVAL PT REQUESTING R E EVAL FOR FAINTNESS TO R/O CARDIAC CAUSES [facility] [address] [place] [address] [phone]
--- OUTSIDE RECORDS SUMMARY | 2020-04-04 15:27 | CCD ---
Continuity of Care Document (CCD) Created on: 01/27/2020 Sowmya Mata External Reference #: [id number] : [id number] Sex: Female Author Author Sowmya LEAL P.AJes Organization Unknown Address [address] [place] [address], [facility] [address] [place] [address] Phone [phone] Care Team Providers Care Vermin Exterminator Name Role Phone Amol Fletcher MD AUTM Unavailable Nagi Harden DO AUTM [phone] Problems Description No Information Available Social History Type Date Description Comments Sex Unknown Allergies, Adverse Reactions, Alerts Description No Information Available Medications Active Medications SIG Qnty Indications Ordering Provide r Date Acetaminophen-Codeine #3 300-30mg Tablets take 1 tablet every 6 hours as needed for pain 40tabs S22.040D Eren Harden MD 11/19/2019 Immunizations Description No Information Available Vital Signs Description No Information Available Results Description No Information Available Procedures Date Code Description Status 01/27/2020 84695 X-Ray Spine Lumbosacral Ap & Lat eral 2-3 Views Completed 01/27/2020 35188 X-Ray Spine Thoracic Ap & Latera l 2 Views Completed 12/16/2019 73361 X-Ray Spine Lumbosacral Ap & Lat eral 2-3 Views Completed 12/16/2019 77832 X-Ray Spine Thoracic Ap & Latera l 2 Views Completed 11/19/2019 24847 X-Ray Spine Lumbosacral Ap & Lat eral 2-3 Views Completed 11/19/2019 07059 X-Ray Spine Thoracic Ap & Latera l 2 Views Completed 11/12/2019 93168 FX CL Vertebral Body Wi Cast/Bra ce Completed Medical Devices Description No Information Available Encounters Type Date Location Provider Dx Diagnosis Office Visit 12/16/2019 3:00p [place] Oneyda Snell S22.040D [facility] comprsn fx fourth thor vert, subs for fx w routn heal S22.050D Wedge comprsn fx T5-T6 verte bra, subs for fx w routn heal S32.010D Wedge comprsn fx first lum v ert, subs for fx w routn heal S32.020D Wedge comprsn fx second lum vert, subs for fx w routn heal S32.030D Wedge comprsn fx third lum v ert, subs for fx w routn heal Office Visit 11/19/2019 1:45p [place] Suresh Leal, P.A. S22.040D Wedge comprsn fx fourth thor vert, subs for fx w routn heal S22.050D Wedge comprsn fx T5-T6 verte bra, subs for fx w routn heal S32.010D Wedge comprsn fx first lum v ert, subs for fx w routn heal S32.020D Wedge comprsn fx second lum vert, subs for fx w routn heal S32.030D Wedge comprsn fx third lum v ert, subs for fx w routn heal Office Visit 11/12/2019 9:15a Jasperrosas Medrano MD S22. 040A Wedge compression fracture of fourth thoracic vertebra, init S22.030A Wedge compression fracture o f third thoracic vertebra, init Assessments Date Code Description Provider 01/27/2020 S22.040D Wedge compression fr acture of fourth thoracic vertebra, subsequent encounter for fracture with routine healing Suresh Leal, P.A. 01/27/2020 S22.050D Wedge compression fr acture of T5-T6 vertebra, subsequent encounter for fracture with routine healing Suresh Leal, P.A. 01/27/2020 S32.010D Wedge compression fr acture of first lumbar vertebra, subsequent encounter for fracture with routine healing Suresh Leal, P.A. 01/27/2020 S32.020D Wedge compression fr acture of second lumbar vertebra, subsequent encounter for fracture with routine healing Suresh Leal, P.A. 01/27/2020 S32.030D Wedge compression fr acture of third lumbar vertebra, subsequent encounter for fracture with routine healing Suresh Leal, P.A. 12/16/2019 S22.040D Wedge compression fr acture of fourth thoracic vertebra, subsequent encounter for fracture with routine healing Suresh Leal, P.A. 12/16/2019 S22.050D Wedge compression fr acture of T5-T6 vertebra, subsequent encounter for fracture with routine healing Suresh Leal, P.A. 12/16/2019 S32.010D Wedge compression fr acture of first lumbar vertebra, subsequent encounter for fracture with routine healing Suresh Leal, P.A. 12/16/2019 S32.020D Wedge compression fr acture of second lumbar vertebra, subsequent encounter for fracture with routine healing Suresh Leal, P.A. 12/16/2019 S32.030D Wedge compression fr acture of third lumbar vertebra, subsequent encounter for fracture with routine healing Suresh Leal, P.A. 11/19/2019 S22.040D Wedge compression fr acture of fourth thoracic vertebra, subsequent encounter for fracture with routine healing Suresh Leal, P.A. 11/19/2019 S22.050D Wedge compression fr acture of T5-T6 vertebra, subsequent encounter for fracture with routine healing Suresh Leal, P.A. 11/19/2019 S32.010D Wedge compression fr acture of first lumbar vertebra, subsequent encounter for fracture with routine healing Suresh Carrilloan, P.A. 11/19/2019 S32.020D Wedge compression fr acture of second lumbar vertebra, subsequent encounter for fracture with routine healing Suresh Leal, P.A. 11/19/2019 S32.030D Wedge compression fr acture of third lumbar vertebra, subsequent encounter for fracture with routine healing Suresh Leal, P.A. 11/12/2019 S22.040A Wedge compression fr acture of fourth thoracic vertebra, initial encounter for closed fracture Sidney Medrano MD 11/12/2019 S22.040A Wedge compression fr acture of fourth thoracic vertebra, initial encounter for closed fracture Sidney Medrano MD 11/12/2019 S22.030A Wedge compression fr acture of third thoracic vertebra, initial encounter for closed fracture Sidney Medrano MD 11/12/2019 S22.030A Wedge compression fr acture of third thoracic vertebra, initial encounter for closed fracture Sidney Medrano MD 10/19/2019 S22.040A Wedge compression fr acture of fourth thoracic vertebra, initial encounter for closed fracture Sidney Medrano MD Plan of Treatment 01/27/2020 - Suresh Leal, P.A.* S22.040D Wedge compression fracture of fourth thoracic vertebra, subsequent encounter for fracture with routine healing * S22.050D Wedge compression fracture of T5-T6 vertebra, subsequent encounter for fracture with routine healing * S32.010D Wedge compression fracture of first lumbar vertebra, subsequent encounter for fracture with routine healing * S32.020D Wedge compression fracture of second lumbar vertebra, subsequent encounter for fracture with routine healing * S32.030D Wedge compression fracture of third lumbar vertebra, subsequent encounter for fracture with routine healing* Follow up:* prn Functional Status Description No Information Available Mental Status Description No Information Available Referrals Description No Information Available
--- OUTSIDE RECORDS SUMMARY | 2020-04-04 15:27 | CCD | Continuity of Care Document ---
Author Author Sowmya LEAL P.Tom Organization Unknown Address [address] [place] [address], [facility] [address] [place] [address] Phone [phone] Care Team Providers Care Business Services Director Name Role Phone Amol Fletcher MD AUTM Unavailable Nagi Harden DO AUTM [phone] Problems Description No Information Available Social History [...] Available Procedures Date Code Description Status 01/27/2020 38336 X-Ray Spine Lumbosacral Ap & Lat eral 2-3 Views Completed 01/27/2020 91335 X-Ray Spine Thoracic Ap & Latera l 2 Views Completed 12/16/2019 05811 X-Ray Spine Lumbosacral Ap & Lat eral 2-3 Views Completed 12/16/2019 72480 X-Ray Spine Thoracic Ap & Latera l 2 Views Completed 11/19/2019 49182 X-Ray Spine Lumbosacral Ap & Lat eral 2-3 Views Completed 11/19/2019 07272 X-Ray Spine Thoracic Ap & Latera l 2 Views Completed 11/12/2019 40691 FX CL Vertebral Body Wi Cast/Bra ce Completed Medical Devices Description No Information Available Encounters Type Date Location Provider Dx Diagnosis Office Visit 01/27/2020 1:00p [place] Oneyda Snell S22.040D Wedge comprsn fx fourth [...] for fx w routn heal Office Visit 12/16/2019 3:00p [place] Leal P.[place]. S22.040D Wedge comprsn fx fourth thor [...] w routn heal Office Visit 11/19/2019 1:45p [place] Le[place] P.A. S22.040D Wedge comprsn fx fourth thor [...] w routn heal Office Visit 11/12/2019 9:15a [place] Med[place] MD S22. 040A Wedge compression fracture of fourth thoracic vertebra, init S22.030A Wedge compression fracture o f third thoracic vertebra, init Assessments Date Code Description Provider 01/27/2020 S22.040D Wedge compression fr acture of fourth thoracic vertebra, subsequent encounter for fracture with routine healing Suresh Leal, [place] 01/27/2020 S22.050D Wedge compression fr acture of [...] encounter for fracture with routine healing Suresh Carrillogarrett, P.A. 12/16/2019 S32.020D Wedge compression fr acture of second lumbar vertebra, subsequent encounter for fracture with routine healing Suresh Leal, P.A. 12/16/2019 S32.030D Wedge compression fr acture of third lumbar vertebra, subsequent encounter for fracture with routine healing Suresh Leal, P.A. 11/19/2019 S22.040D Wedge compression fr acture of fourth thoracic vertebra, subsequent encounter for fracture with routine healing Suresh Carrillogarrett, P.A. 11/19/2019 S22.050D Wedge compression fr acture of T5-T6 vertebra, subsequent encounter for fracture with routine healing Suresh Nelly Carrilloan, P.A. 11/19/2019 S32.010D Wedge compression fr acture of first lumbar vertebra, subsequent encounter for fracture with routine healing Suresh Nlely Xiomarahongan, P.A. 11/19/2019 S32.020D Wedge compression fr acture of second lumbar vertebra, subsequent encounter for fracture with routine healing Suresh FredericJes Solanoalexan, P.A. 11/19/2019 S32.030D Wedge compression fr acture of third lumbar vertebra, subsequent encounter for fracture with routine healing Suresh FredericJes Josephheran, P.A. 11/12/2019 S22.040A Wedge compression fr acture [...] Medrano MD Plan of Treatment 01/27/2020 - Sruesh Leal, P.A.* S22.040D Wedge compression fracture of [...]
--- OUTSIDE RECORDS SUMMARY | 2020-04-04 15:27 | CCD | Continuity of Care Document ---
Author Author Sowmya SMITH D.O. Organization Unknown Address [address] [facility] [address] [place] [address] Phone [phone] Problems Active Problems Provider Date Hypothyroidism Nagi [...] is a former smoker Smoking Status Reviewed: 01/11/20 Patient is a former smoker Allergies, Adverse [...] times daily 120caps Nagi Smith D.O., FA [facility] 12/08/[address] take 1 capsule by mouth once daily 90caps Nagi Smith D.O., [facility] 12/08/2018 Prevnar 13 Suspension as directed 1dose Nagi Smith D.O., [facility] 12/08/2018 Ventolin HFA 108(90Base) mcg/Act A erosol 2 puffs Q 12 HRS prn 8gm Nagi Smith D.O., [facility] 12/08/2018 Vitamin D 1000Unit Tablets 1 by mouth every day Unknown Calcium 500mg Tablets 1 by mouth twice a day Unknown Mucinex 600mg Tablets ER 12HR Unknown Acetaminophen-Codeine #3 300-30mg Tablets one tab po every 6 hours as needed for pain (Dr. Suresh Leal [facility] [place]) 40tabs Unknown History Medications Hydroxyzine HCL 25mg Tablets one tab po daily, may take second dose if needed 14tabs Nagi Smith D.O., [facility] 12/16/2019 - 12/23/2019 Tramadol HCL 50mg Tablets one tab by mouth daily x 7 days (Istop: [id number]) 7tabs [facility]., [facility] 11/16/2019 - 11/23/2019 Cephalexin 500mg Capsules take one cap po tid x 10 days 30caps Nagi Smith D.O., [facility] - 07/29/2019 Immunizations CPT Code Status Date Vaccine Lot # [id number] Refused 01/11/2020 Influenza Virus Vaccine, Quadrivalent, Slit Virus, Im Use 3Y & Up 20573 Refused 01/21/2019 Influenza Virus Vaccine, Quadrivalent, Slit Virus, Im Use 3Y & Up 63669 Refused 01/21/2019 Prevnar 13 Pneum o. Conj Ped. Vaccine 13 Valent (PCV13) For Im Use Vital Signs Date Vital Result Comment 01/11/2020 1:49pm BP Systolic 100 mmHg BP Diastolic 64 mmHg Body Temperature 98.2 F Heart Rate 94 /min Respiratory Rate 18 /min Height 62.50 inches 5'2.50" Weight 145.00 lb Alpha Body Weight 110 lb BMI (Body Mass Index) 26.1 kg/m2 O2 % BldC Oximetry 97 % 12/21/2019 1:08pm BP Systolic 116 mmHg BP Diastolic 68 mmHg Body Temperature 97.1 F Heart Rate 72 /min Respiratory Rate 18 /min Height 62.50 inches 5'2.50" Weight 147.00 lb Alpha Body Weight 110 lb BMI (Body Mass Index) 26.5 kg/m2 O2 % BldC Oximetry 97 % Results Test Acquired Date Facility Test Result H/L Range Note Laboratory test finding 01/11/2020 [facility] [place] Sediment[place] Rate 15 0-20 Laboratory test finding [...] eGFR 78 # Calc 3 eGFR Non-Afr. Liberian 68 # Calc 4 Lipid Panel 01/11/2020 [facility] Chol 220 mg/dL High 0 - 200 Trig 149 mg/dL 40 - 200 HDL 68 mg/dL High 45 - 65 LDL_C 122 Calc 75 - 129 Cho/HDL Ratio 3.2 CALC Laboratory test finding 01/11/2020 [facility] TSH 4.097 ulU/mL 0.60 - 4.8 CBC With Differential 11/11/2019 [facility] (Interface) [phone] White Blood Count 9.1 10 Normal 4.0-10.0 [...] 36.0-66.0 Lymph % 20.0 % Low 24.0-44.0 Kimball % 6.7 % High 0.0-5.0 Eos % 1.4 % Normal 0.0-3.0 Baso % 0.7 % Normal 0.0-1.0 Immature Granulocyte % 0.3 % Normal 0-3.0 Nucleated Red Blood Cell % 0.0 % Normal 0-0 Neutrophils # 6.4 10 Normal 1.5-8.5 Lymph # 1.8 10 Normal 1.5-5.0 Kimball # 0.6 10 Normal 0.0-0.8 Eos # 0.1 10 Normal 0.0-0.5 Baso # 0.1 10 Normal 0.0-0.2 Cardiac Marker Panel 11/11/2019 [facility] ( Interface) [phone] CPK Creatine Phosphokinase 54 U/L Normal 26-19 2 CK-MB Value Mass < 1.0 NG/ML Normal <3.6 MB/CK Relative Index 1.85 Normal < Or =4 5 Troponin I < 0.02 NG/ML Normal < 0.10 6 Liver Profile 11/11/2019 [facility] (I nterface) [phone] Ast/Sgot 15 U/L Normal 7-37 Alt/SGPT 17 U/L Normal 12-78 Alkaline Phosphatase 112 U/L Normal 45-117 Bilirubin,Total 0.3 mg/dL Normal 0.2-1.0 Bilirubin,Direct < 0.1 mg/dL Normal 0.0-0.2 Total Protein 6.7 GM/DL Normal 6.4-8.2 Albumin 3.5 GM/DL Normal 3.2-5.2 Albumin/Globulin Ratio 1.1 Low 1.2-2.2 Basic Metabolic Profile 11/11/2019 [facility] (Interface) [phone] Glucose, Fasting 79 mg/dL Normal 70-100 Blood [...] mg/dL Normal 8.8-10.2 Laboratory test finding 11/11/2019 [facility] (Interface) [phone] Lipase 100 U/L Normal 73-393 8 Laboratory [...] eGFR 92 # Calc 10 eGFR Non-Afr. Liberian 80 # Calc 11 CBC 09/02/2019 [facility] [...] 9.0 - 13.0 CBC With Differential 07/24/2019 [facility] ([facility]) [phone] White Blood Count 11.4 10 High 4.0-10.0 [...] 36.0-66.0 Lymph % 12.2 % Low 24.0-44.0 Kimball % 8.2 % High 0.0-5.0 Eos % 1.1 % Normal 0.0-3.0 Baso % 0.4 % Normal 0.0-1.0 Immature Granulocyte % 0.4 % Normal 0-3.0 Nucleated Red Blood Cell % 0.0 % Normal 0-0 Neutrophils # 8.9 10 High 1.5-8.5 Lymph # 1.4 10 Low 1.5-5.0 Kimball # 0.9 10 High 0.0-0.8 Eos # 0.1 10 Normal 0.0-0.5 Baso # 0.1 10 Normal 0.0-0.2 CBC With Differential 07/23/2019 [facility] ([facility]) [phone] White Blood Count 13.2 10 High 4.0-10.0 [...] 36.0-66.0 Lymph % 10.0 % Low 24.0-44.0 Kimball % 7.9 % High 0.0-5.0 Eos % 0.2 % Normal 0.0-3.0 Baso % 0.2 % Normal 0.0-1.0 Immature Granulocyte % 0.4 % Normal 0-3.0 Nucleated Red Blood Cell % 0.0 % Normal 0-0 Neutrophils # 10.8 10 High 1.5-8.5 Lymph # 1.3 10 Low 1.5-5.0 Kimball # 1.0 10 High 0.0-0.8 Eos # 0.0 10 Normal 0.0-0.5 Baso # 0.0 10 Normal 0.0-0.2 Comprehensive Met[facility] [phone] Glucose, Fasting 97 mg/dL Normal 70-100 Blood [...] 0.86 Low 1.00-1.93 Laboratory test finding 07/22/2019 [facility] ([facility]) [phone] Bedside Glucose 97 mg/dL Normal 83-110 Ua W/ Reflex To Culture [facility] [phone] Appearance, Urine RFX CLEAR Normal Clear Color, Urine RFX YELLOW Normal Yellow PH,Urine RFX 5.0 units Normal 5.0-9.0 Specific [place] Ur Auto RFX 1.024 Normal 1.002-1.035 Protein, [...] /LPF Normal 0-1 Reflex Urine Culture 07/21/2019 [facility] ( Interface) [phone] Reflex Urine Culture FULL REPORT IN L <SEE NOTE> Norm al 13 CBC With Differential 07/21/2019 [facility]) [phone] White Blood Count 12.5 10 High 4.0-10.0 [...] 36.0-66.0 Lymph % 9.4 % Low 24.0-44.0 Kimball % 10.0 % High 0.0-5.0 Eos % 1.0 % Normal 0.0-3.0 Baso % 0.6 % Normal 0.0-1.0 Immature Granulocyte % 0.4 % Normal 0-3.0 Nucleated Red Blood Cell % 0.0 % Normal 0-0 Neutrophils # 9.9 10 High 1.5-8.5 Lymph # 1.2 10 Low 1.5-5.0 Kimball # 1.3 10 High 0.0-0.8 Eos # 0.1 10 Normal 0.0-0.5 Baso # 0.1 10 Normal 0.0-0.2 Liver Profile 07/21/2019 [facility] (I nterface) [phone] Ast/Sgot 12 U/L Normal 7-37 Alt/SGPT 16 U/L Normal 12-78 Alkaline Phosphatase 92 U/L Normal 45-117 Bilirubin,Total 0.3 mg/dL Normal 0.2-1.0 Bilirubin,Direct < 0.1 mg/dL Normal 0.0-0.2 Total Protein 5.7 GM/DL Low 6.4-8.2 Albumin 2.8 GM/DL Low 3.2-5.2 Albumin/Globulin Ratio 0.97 Low 1.00-1.93 Basic Metabolic Profile [facility] [phone] Glucose, Fasting 110 mg/dL High 70-100 Blood [...] mg/dL Low 8.8-10.2 Laboratory test finding 07/21/2019 [facility] (Interface) [phone] Lipase 88 U/L Normal 73-393 15 U/A DIP FPA 07/21/2019 [facility] Asso ciates Color Urine YELLOW Yellow Appearance CLEAR Clear Specific [place] 1.020 1.00-1.03 PH Urine 6.5 5.0-8.0 Glucose [...] eGFR 92 # Calc 16 eGFR Non-Afr. Liberian 80 # Calc 17 1 Vitamin D deficiency has bee n defined by the [place] of Medicine and an Endocrine Society practice guideline as a level of serum 25-OH vitamin D less than 20 ng/mL (1,2). The Endocrine Society went on to further define vitamin D insufficiency as a level between 21 and 29 ng/mL (2). 1. IOM ([place] of Medicine). 2010. Di etary reference intakes [...] HCT IS 5% LESS SOURCE FOR DATA: Resource Data DYN 1800 OPERATION MANUAL( AUTOMATED BLOOD COUNTS [...] (RI) NON-AMI < or = 5 N/A SMOMER ZONE > 5 < or = 4 AMI > 5 > 4 6 Troponin I Reference Interva l for Droplr LOCI: 99th Percentile= 0.00-0.045 ng/ml Risk Stratification: [...] Little GFR Left ESRD GFR <15 on UNIX SYSTEM ADMINISTRATOR 8 note:<nlbl:demographic_chang ed> 9 NORMAL RANGES Age [...] HCT IS 5% LESS SOURCE FOR DATA: Happy Inspector 1800 OPERATION MANUAL( AUTOMATED BLOOD COUNTS AND [...] Little GFR Left ESRD GFR <15 on UNIX SYSTEM ADMINISTRATOR 13 FULL REPORT IN LAB NOTES (eC W and [employer]). NO GROWTH CLINICAL SIGNIFICANCE 1 ORGANISM 14 Units are mL/min/1.73 m2 Chronic Kidney Disease Staging per NKF: Stage I & II GFR >=60 Normal to Mildly Decreased Stage III GFR 30-59 Moderately Decreased Stage IV GFR 15-29 Severely Decreased Stage V GFR <15 Very Little GFR Left ESRD GFR <15 on UNIX SYSTEM ADMINISTRATOR 15 note:<nlbl:demographic_chang ed> 16 CKD-EPI 17 CKD-EPI Procedures Description No Information Available Medical Devices Description No Information Available Encounters Type Date Location Provider Dx Diagnosis Office Visit 01/11/2020 1:30p [place] [facility] Pat Mcnamara, FAAFP K21.9 Gastro-esophageal reflux disease without esophagitis E03.9 Hypothyroidism, unspecified Z72.0 Tobacco use M54.9 Dorsalgia, unspecified 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 Office Visit 12/21/2019 1:00p [place] [facility] Diaz Maldonado, PA L28.2 Other prurigo Office Visit 12/16/2019 1:00p [place] [facility] Diaz Maldonado, PA L28.2 Other prurigo Office Visit 11/23/2019 1:00p [place] [facility] Diaz Maldonado, PA S22.009A Unsp fracture of unsp thoracic vertebra, init for clos fx Office Visit 11/16/2019 2:40p [place] [facility] Eliud Maldonado PA S22.009A Unsp fracture of unsp thoracic vertebra, init for clos fx Office Visit 11/09/2019 3:00p [place] [facility] Pat Mcnamara, FAAFP K21.9 Gastro-esophageal reflux disease without esophagitis E03.9 Hypothyroidism, unspecified R01.1 Cardiac murmur, unspecified W18.39xA Other fall on same level, in itial encounter Office Visit 09/02/2019 1:00p [place] [facility] Pat Mcnamara, FAAFP K21.9 Gastro-esophageal reflux disease without esophagitis E03.9 Hypothyroidism, unspecified Z72.0 Tobacco use D64.9 Anemia, unspecified Office Visit 07/29/2019 2:30p [place] [facility] Pat Mcnamara, FAAFP R10.819 Abdominal tenderness, unspecified site K21.9 Gastro-esophageal reflux dis ease without esophagitis Office Visit 07/21/2019 10:40a [place] [facility] Diaz Maldonado, PA R10.9 Unspecified abdominal pain Assessments Date [...] tenderness, unspecifie d site Nagi Smith D.O., FAAFP 07/29/2019 K21.9 Gastro-esophageal reflux disease without esophagitis Nagi Smith D.O., FAAFP 07/21/2019 R10.9 Unspecified abdominal pain Golden Smith D.O., FAAFP 07/21/2019 R10.9 Unspecified abdominal pain Lacey Salvador PA Plan of Treatment No Information Available Functional Status Description No Information Available Mental Status Description No Information Available Referrals Refer to Dr Reason for Referral Status Appt Date Alisson Smith M.D. please eval pt with osteopor osis with recent fall at home in october with multi Fx of spine please send orthopedic note on fosamax 35 mg weekly [facility] [address], [place] [address] [phone] Fermin Greenfield M.D. PLEASE EVAL PT REQUESTING R E EVAL FOR FAINTNESS TO R/O CARDIAC CAUSES [facility] [address] [place] [address] [phone]
--- OUTSIDE RECORDS SUMMARY | 2020-04-04 15:28 | CCD | Continuity of Care Document ---
Author Author Sowmya SMITH D.O. Organization Unknown Address 3 [facility] [address] [place] [address] Phone [phone] Problems Active Problems Provider Date Hypothyroidism Nagi [...] times daily 120caps Nagi Smith D.O., FA [facility] 12/08/[address] take 1 capsule by mouth once daily 90caps Nagi Smith D.O., [facility] 12/08/2018 Prevnar 13 Suspension as directed 1dose Nagi Smith D.O., [facility] 12/08/2018 Ventolin HFA 108(90Base) mcg/Act A erosol 2 puffs Q 12 HRS prn 8gm Nagi Smith D.O., [facility] 12/08/2018 Vitamin D 1000Unit Tablets 1 by mouth every day Unknown Calcium 500mg Tablets 1 by mouth twice a day Unknown Mucinex 600mg Tablets ER 12HR Unknown Acetaminophen-Codeine #3 300-30mg Tablets one tab po every 6 hours as needed for pain (Dr. Suresh Leal [facility]) 40tabs Unknown History Medications Hydroxyzine HCL 25mg Tablets one tab po daily, may take second dose if needed 14tabs Nagi Smith D.O., [facility] 12/16/2019 - 12/23/2019 Tramadol HCL 50mg Tablets one tab by mouth daily x 7 days ([place]: [id number]) 7tabs Nagi freeman D.O., [facility] 11/16/2019 - 11/23/2019 Cephalexin 500mg Capsules take one cap po tid x 10 days 30caps Nagi Smith D.O., [facility] - 07/29/2019 Immunizations CPT Code Status Date Vaccine Lot # [id number] Refused 01/11/2020 Influenza Virus Vaccine, Quadrivalent, Slit Virus, Im Use 3Y & Up [id number] Refused 01/21/2019 Influenza Virus Vaccine, Quadrivalent, Slit Virus, Im Use 3Y & Up [id number] Refused 01/21/2019 Prevnar 13 Pneum o. Conj Ped. Vaccine 13 Valent (PCV13) For Im Use Vital Signs Date Vital Result Comment 01/11/2020 1:49pm BP Systolic 100 mmHg BP Diastolic 64 mmHg Body Temperature 98.2 F Heart Rate 94 /min Respiratory Rate 18 /min Height 62.50 inches 5'2.50" Weight 145.00 lb [place] Body Weight 110 lb BMI (Body Mass Index) 26.1 kg/m2 O2 % BldC Oximetry 97 % 12/21/2019 1:08pm BP Systolic 116 mmHg BP Diastolic 68 mmHg Body Temperature 97.1 F Heart Rate 72 /min Respiratory Rate 18 /min Height 62.50 inches 5'2.50" Weight 147.00 lb [place] Body Weight 110 lb BMI (Body Mass Index) 26.5 kg/m2 O2 % BldC Oximetry 97 % Results Test Acquired Date Facility Test Result H/L Range Note CBC With Differential 11/11/2019 [facility]) [phone] White Blood Count 9.1 10 Normal 4.0-10.0 [...] 36.0-66.0 Lymph % 20.0 % Low 24.0-44.0 [place] % 6.7 % High 0.0-5.0 Eos % 1.4 % Normal 0.0-3.0 Baso % 0.7 % Normal 0.0-1.0 Immature Granulocyte % 0.3 % Normal 0-3.0 Nucleated Red Blood Cell % 0.0 % Normal 0-0 Neutrophils # 6.4 10 Normal 1.5-8.5 Lymph # 1.8 10 Normal 1.5-5.0 [place] # 0.6 10 Normal 0.0-0.8 Eos # 0.1 10 Normal 0.0-0.5 Baso # 0.1 10 Normal 0.0-0.2 Cardiac Marker Panel 11/11/2019 [facility] Interface) [phone] CPK Creatine Phosphokinase 54 U/L Normal 26-19 2 CK-MB Value Mass < 1.0 NG/ML Normal <3.6 MB/CK Relative Index 1.85 Normal < Or =4 1 Troponin I < 0.02 NG/ML Normal < 0.10 2 Liver Profile 11/11/2019 [facility] [phone] Ast/Sgot 15 U/L Normal 7-37 Alt/SGPT 17 U/L Normal 12-78 Alkaline Phosphatase 112 U/L Normal 45-117 Bilirubin,Total 0.3 mg/dL Normal 0.2-1.0 Bilirubin,Direct < 0.1 mg/dL Normal 0.0-0.2 Total Protein 6.7 GM/DL Normal 6.4-8.2 Albumin 3.5 GM/DL Normal 3.2-5.2 Albumin/Globulin Ratio 1.1 Low 1.2-2.2 Basic Metabolic Profile 11/11/2019 [facility] (Interface) [phone] Glucose, Fasting 79 mg/dL Normal 70-100 Blood Urea Nitrogen 15 mg/dL Normal 7-18 Creatinine For GFR 0.71 mg/dL Normal 0.55-1.30 Glomerular Filtration Rate > 60.0 Normal >32 3 Sodium Level 139 mEq/L Normal 136-145 Potassium Serum 3.8 mEq/L Normal 3.5-5.1 Chloride Level 108 mEq/L High 98-107 Carbon Dioxide Level 30 mEq/L Normal 21-32 Anion Gap 1 mEq/L Low 8-16 Calcium Level 8.8 mg/dL Normal 8.8-10.2 Laboratory test finding 11/11/2019 [facility] (Interface) [phone] Lipase 100 U/L Normal 73-393 4 CBC 09/02/2019 [facility] WBC 11.1 10E3/uL High 4.1 - 10.9 5 RBC 3.69 10E6/uL Low 4.20 - 6.30 [...] 1.8 MPV 11.4 fL 9.0 - 13.0 Basic Metabolic Panel 09/02/2019 [facility] Glu 77 [...] Gap 16 mmol/L eGFR 92 # Calc 6 eGFR Non-Afr. Maced[place] 80 # Calc 7 Laboratory test finding 09/02/2019 [facility] CK 58 U/L 26 - 192 Laboratory test finding 09/02/2019 [facility] TSH 2.482 ulU/mL 0.60 - 4.8 CBC With Differential 07/24/2019 [facility] (Interface) [phone] White Blood Count 11.4 10 High 4.0-10.0 [...] 36.0-66.0 Lymph % 12.2 % Low 24.0-44.0 [place] % 8.2 % High 0.0-5.0 Eos % 1.1 % Normal 0.0-3.0 Baso % 0.4 % Normal 0.0-1.0 Immature Granulocyte % 0.4 % Normal 0-3.0 Nucleated Red Blood Cell % 0.0 % Normal 0-0 Neutrophils # 8.9 10 High 1.5-8.5 Lymph # 1.4 10 Low 1.5-5.0 [place] # 0.9 10 High 0.0-0.8 Eos # 0.1 10 Normal 0.0-0.5 Baso # 0.1 10 Normal 0.0-0.2 Comprehensive Metabolic Profil 07/23/2019 [facility] (Interface) [phone] Glucose, Fasting 97 mg/dL Normal 70-100 Blood Urea Nitrogen 10 mg/dL Normal 7-18 Creatinine For GFR 0.51 mg/dL Low 0.55-1.30 Glomerular Filtration Rate > 60.0 Normal >32 8 Sodium Level 141 mEq/L Normal 136-145 Potassium [...] Low 3.2-5.2 Albumin/Globulin Ratio 0.86 Low 1.00-1.93 CBC With Differential 07/23/2019 [facility] (Interface) [phone] White Blood Count 13.2 10 High 4.0-10.0 [...] 36.0-66.0 Lymph % 10.0 % Low 24.0-44.0 [place] % 7.9 % High 0.0-5.0 Eos % 0.2 % Normal 0.0-3.0 Baso % 0.2 % Normal 0.0-1.0 Immature Granulocyte % 0.4 % Normal 0-3.0 Nucleated Red Blood Cell % 0.0 % Normal 0-0 Neutrophils # 10.8 10 High 1.5-8.5 Lymph # 1.3 10 Low 1.5-5.0 [place] # 1.0 10 High 0.0-0.8 Eos # 0.0 10 Normal 0.0-0.5 Baso # 0.0 10 Normal 0.0-0.2 Laboratory test finding 07/22/2019 [facility] (Interface) [phone] Bedside Glucose 97 mg/dL Normal 83-110 Ua W/ Reflex To Culture 07/21/2019 [facility] (Interface) [phone] Appearance, Urine RFX CLEAR Normal Clear Color, Urine RFX YELLOW Normal Yellow PH,Urine RFX 5.0 units Normal 5.0-9.0 Specific [place] Ur Auto RFX 1.024 Normal 1.002-1.035 Protein, [...] /LPF Normal 0-1 Reflex Urine Culture 07/21/2019 [facility] ( Interface) [phone] Reflex Urine Culture FULL REPORT IN L <SEE NOTE> Norm al 9 CBC With Differential 07/21/2019 [facility] (Interface) [phone] White Blood Count 12.5 10 High 4.0-10.0 [...] 36.0-66.0 Lymph % 9.4 % Low 24.0-44.0 [place] % 10.0 % High 0.0-5.0 Eos % 1.0 % Normal 0.0-3.0 Baso % 0.6 % Normal 0.0-1.0 Immature Granulocyte % 0.4 % Normal 0-3.0 Nucleated Red Blood Cell % 0.0 % Normal 0-0 Neutrophils # 9.9 10 High 1.5-8.5 Lymph # 1.2 10 Low 1.5-5.0 [place] # 1.3 10 High 0.0-0.8 Eos # 0.1 10 Normal 0.0-0.5 Baso # 0.1 10 Normal 0.0-0.2 Liver Profile 07/21/2019 [facility] (I nterfa) [phone] Ast/Sgot 12 U/L Normal 7-37 Alt/SGPT 16 U/L Normal 12-78 Alkaline Phosphatase 92 U/L Normal 45-117 Bilirubin,Total 0.3 mg/dL Normal 0.2-1.0 Bilirubin,Direct < 0.1 mg/dL Normal 0.0-0.2 Total Protein 5.7 GM/DL Low 6.4-8.2 Albumin 2.8 GM/DL Low 3.2-5.2 Albumin/Globulin Ratio 0.97 Low 1.00-1.93 Basic Metabolic Profile 07/21/2019 [facility] (Interface) [phone] Glucose, Fasting 110 mg/dL High 70-100 Blood Urea Nitrogen 18 mg/dL Normal 7-18 Creatinine For GFR 0.62 mg/dL Normal 0.55-1.30 Glomerular Filtration Rate > 60.0 Normal >32 1 0 Sodium Level 141 mEq/L Normal 136-145 Potassium Serum 3.8 mEq/L Normal 3.5-5.1 Chloride Level 109 mEq/L High 98-107 Carbon Dioxide Level 30 mEq/L Normal 21-32 Anion Gap 2 mEq/L Low 8-16 Calcium Level 8.5 mg/dL Low 8.8-10.2 Laboratory test finding 07/21/2019 [facility] (Interface) [phone] Lipase 88 U/L Normal 73-393 11 U/A DIP FPA 07/21/2019 [facility] Practice Asso ciates Color Urine YELLOW Yellow Appearance CLEAR Clear Specific [place] 1.020 1.00-1.03 PH Urine 6.5 5.0-8.0 Glucose [...] Gap 16 mmol/L eGFR 92 # Calc 12 eGFR Non-Afr. [place] 80 # Calc 13 1 DIAGNOSIS CRITERIA MMB ng/ml Relative Index (RI) NON-AMI < or = 5 N/A SOMMER ZONE > 5 < or = 4 AMI > 5 > 4 2 Troponin I Reference Interva l for [employer] LOCI: 99th Percentile= 0.00-0.045 ng/ml Risk Stratification: <= 0.10 ng/ml Decreased Risk for Adverse Clinical Events. 0.10-1.50 ng/ml Increased Risk for Adv erse Clinical Events. Evaluation of additional criterion and/or repeat testing in 2-6 hours is suggested to rule out myocardial damage. >= 1.50 ng/ml Indicative of Myocardial Injury. 3 Units are mL/min/1.73 m2 Chronic Kidney Disease Staging per NKF: Stage I & II GFR >=60 Normal to Mildly Decreased Stage III GFR 30-59 Moderately Decreased Stage IV GFR 15-29 Severely Decreased Stage V GFR <15 Very Little GFR Left ESRD GFR <15 on STATION INSTALLER 4 note:<nlbl:demographic_chang ed> 5 NORMAL RANGES Age WBC RBC HGB HCT [...] HCT IS 5% LESS SOURCE FOR DATA: [employer] 1800 OPERATION MANUAL( AUTOMATED BLOOD COUNTS AND [...] Normal 80 and above >32 mL/min Normal 6 CKD-EPI 7 CKD-EPI 8 Units are mL/min/1.73 m2 Chronic Kidney Disease Staging per NKF: Stage I & II GFR >=60 Normal to Mildly Decreased Stage III GFR 30-59 Moderately Decreased Stage IV GFR 15-29 Severely Decreased Stage V GFR <15 Very Little GFR Left ESRD GFR <15 on STATION INSTALLER 9 FULL REPORT IN LAB NOTES (eC W and [employer]). NO GROWTH CLINICAL SIGNIFICANCE 1 ORGANISM 10 Units are mL/min/1.73 m2 Chronic Kidney Disease Staging per NKF: Stage I & II GFR >=60 Normal to Mildly Decreased Stage III GFR 30-59 Moderately Decreased Stage IV GFR 15-29 Severely Decreased Stage V GFR <15 Very Little GFR Left ESRD GFR <15 on STATION INSTALLER 11 note:<nlbl:demographic_chang ed> 12 CKD-EPI 13 CKD-EPI Procedures Description No Information Available Medical Devices Description No Information Available Encounters Type Date Location Provider Dx Diagnosis Office Visit 12/21/2019 1:00p [place] [facility] Diaz Maldonado PA L28.2 Other prurigo Office Visit 12/16/2019 1:00p [place] [facility] Diaz Maldonado PA L28.2 Other prurigo Office Visit 11/23/2019 1:00p [place] [facility] Diaz Maldonado, PA S22.009A Unsp fracture of unsp thoracic vertebra, init for clos fx Office Visit 11/16/2019 2:40p [place] [facility] Eliud Maldonado PA S22.009A Unsp fracture of unsp thoracic vertebra, init for clos fx Office Visit 11/09/2019 3:00p [place] [facility] Pat Mcnamara, FAAFP K21.9 Gastro-esophageal reflux disease without esophagitis E03.9 Hypothyroidism, unspecified R01.1 Cardiac murmur, unspecified W18.39xA Other fall on same level, in itial encounter Office Visit 09/02/2019 1:00p [place] [facility] Pat Mcnamara, FAAFP K21.9 Gastro-esophageal reflux disease without esophagitis E03.9 Hypothyroidism, unspecified Z72.0 Tobacco use D64.9 Anemia, unspecified Office Visit 07/29/2019 2:30p [place] [facility] Pat Mcnamara, FAAFP R10.819 Abdominal tenderness, unspecified site K21.9 Gastro-esophageal reflux dis ease without esophagitis Office Visit 07/21/2019 10:40a [place] [facility] Minech[employer] Diaz Yanez PA R10.9 Unspecified abdominal pain Assessments Date Code Description Provider 12/21/2019 L28.2 Pruritic rash Michelledonte Long Yanez, BILL 12/16/2019 L28.2 Pruritic rash Michelledonte Long Yanez, PA 11/23/2019 S22.009A Fracture of thoracic spine Lacey Salvador PA 11/16/2019 S22.009A Fracture of thoracic spine Bernardo ligiaLacey oliveira, PA 11/09/2019 K21.9 Gastro-esophageal reflux disease without esophagitis Nagi Smith D.O., [facility] 11/09/2019 E03.9 Hypothyroidism, unspecified Santi Smith D.O., [facility] 11/09/2019 R01.1 Cardiac murmur, unspecified Santi Smith D.O., [facility] 11/09/2019 W18.39xA Other fall on same level, initia l encounter Nagi Smith D.O., [facility] 09/02/2019 K21.9 Gastro-esophageal reflux disease without esophagitis Nagi Smith D.O., [facility] 09/02/2019 E03.9 Hypothyroidism, unspecified Santi Smith D.O., [facility] 09/02/2019 Z72.0 Tobacco use Nagi Smith D.O., [facility] 09/02/2019 D64.9 Anemia [facility]O., [facility] 07/29/2019 R10.819 Abdominal tenderness, unspecifie d site [facility] D.O., [facility] 07/29/2019 K21.9 Gastro-esophageal reflux disease without esophagitis [facility]., [facility] 07/21/2019 R10.9 Unspecified abdominal pain Golden Smith D.O., [facility] 07/21/2019 R10.9 Unspecified abdominal pain Lacey Salvador PA Plan of Treatment No Information Available Functional Status Description No Information Available Mental Status Description No Information Available Referrals Refer to Dr Reason for Referral Status Appt Date Fermin Greenfield M.D. PLEASE EVAL PT REQUESTING R E EVAL FOR FAINTNESS TO R/O CARDIAC CAUSES [facility] [id number] [place] [address] [phone]
--- OUTSIDE RECORDS SUMMARY | 2020-04-04 15:28 | CCD | Continuity of Care Document ---
Author Author Sowmya SMITH D.O. Organization Unknown Address 3 [facility] 3 [place] [address] Phone [phone] Problems Active Problems Provider Date Hypothyroidism Nagi Smith D.O., PRITESH Onset: 11/22 Gastroesophageal reflux disease Nagi Smith D.O., PRITESH Onset: 12/08/2018 Difficulty breathing Nagi mSith D.O., RICFP Onset: Postherpetic neuralgia Nagi Smith [...] least 1 hour after taking med 12tabs Ngai Smith D.O., FAAFP 01/29/2019 Levothyroxine Sodium 75mcg Tablets take 1 tablet by mouth once daily . do not exceed 1 per 24 hours 30tabs Nagi Smith D.O., FAAFP 12/10/2018 Gabapentin 400mg Capsules take 1 capsule by mouth 4 times daily 120caps Nagi Smith D.O., FA [facility] 12/08/[address] take 1 capsule by mouth once daily 90caps Nagi Smith D.O., [facility] 12/08/2018 Prevnar 13 Suspension as directed 1dose Nagi Smith D.O., [facility] 12/08/2018 Ventolin HFA 108(90Base) mcg/Act A erosol 2 puffs Q 12 HRS prn 8gm Nagi Smith D.O., [facility] P 12/08/2018 Vitamin D 1000Unit Tablets 1 by mouth every day Unknown Calcium 500mg Tablets 1 by mouth twice a day Unknown Mucinex 600mg Tablets ER 12HR Unknown Acetaminophen-Codeine #3 300-30mg Tablets one tab po every 6 hours as needed for pain (Dr. Suresh Leal [facility]) 40tabs Unknown History Medications Hydroxyzine HCL 25mg Tablets one tab po daily, may take second dose if needed 14tabs Nagi Smith D.O., [facility] 12/16/2019 - 12/23/2019 Tramadol HCL 50mg Tablets one tab by mouth daily x 7 days (Istop: [id number]) 7tabs [facility]., [facility] 11/16/2019 - 11/23/2019 Cephalexin 500mg Capsules take one cap po tid x 10 days 30caps Nagi Smith D.O., [facility] - 07/29/2019 Immunizations CPT Code Status Date Vaccine Lot # [id number] Refused 01/11/2020 Influenza Virus Vaccine, Quadrivalent, Slit Virus, Im Use 3Y & Up 77763 Refused 01/21/2019 Influenza Virus Vaccine, Quadrivalent, Slit Virus, Im Use 3Y & Up 51910 Refused 01/21/2019 Prevnar 13 Pneum o. Conj Ped. Vaccine 13 Valent (PCV13) For Im Use Vital Signs Date Vital Result Comment 01/11/2020 1:49pm BP Systolic 100 mmHg BP Diastolic 64 mmHg Body Temperature 98.2 F Heart Rate 94 /min Respiratory Rate 18 /min Height 62.50 inches 5'2.50" Weight 145.00 lb [place] Body Weight 110 lb BMI (Body Mass Index) 26.1 kg/m2 O2 % BldC Oximetry 97 % 12/21/2019 1:08pm BP Systolic 116 mmHg BP Diastolic 68 mmHg Body Temperature 97.1 F Heart Rate 72 /min Respiratory Rate 18 /min Height 62.50 inches 5'2.50" Weight 147.00 lb [place] Body Weight 110 lb BMI (Body Mass Index) 26.5 kg/m2 O2 % BldC Oximetry 97 % Results Test Acquired Date Facility Test Result H/L Range Note CBC With Differential 11/11/2019 [facility]) [phone] White Blood Count 9.1 10 Normal 4.0-10.0 [...] 36.0-66.0 Lymph % 20.0 % Low 24.0-44.0 [place] % 6.7 % High 0.0-5.0 Eos % 1.4 % Normal 0.0-3.0 Baso % 0.7 % Normal 0.0-1.0 Immature Granulocyte % 0.3 % Normal 0-3.0 Nucleated Red Blood Cell % 0.0 % Normal 0-0 Neutrophils # 6.4 10 Normal 1.5-8.5 Lymph # 1.8 10 Normal 1.5-5.0 [place] # 0.6 10 Normal 0.0-0.8 Eos # 0.1 10 Normal 0.0-0.5 Baso # 0.1 10 Normal 0.0-0.2 Cardiac Marker Panel 11/11/2019 [facility] Interface) [phone] CPK Creatine Phosphokinase 54 U/L Normal 26-19 2 CK-MB Value Mass < 1.0 NG/ML Normal <3.6 MB/CK Relative Index 1.85 Normal < Or =4 1 Troponin I < 0.02 NG/ML Normal < 0.10 2 Liver Profile 11/11/2019 [facility] [phone] Ast/Sgot 15 U/L Normal 7-37 Alt/SGPT 17 U/L Normal 12-78 Alkaline Phosphatase 112 U/L Normal 45-117 Bilirubin,Total 0.3 mg/dL Normal 0.2-1.0 Bilirubin,Direct < 0.1 mg/dL Normal 0.0-0.2 Total Protein 6.7 GM/DL Normal 6.4-8.2 Albumin 3.5 GM/DL Normal 3.2-5.2 Albumin/Globulin Ratio 1.1 Low 1.2-2.2 Basic Metabolic Profile 11/11/2019 [facility] (Interface) [phone] Glucose, Fasting 79 mg/dL Normal 70-100 Blood [...] mg/dL Normal 8.8-10.2 Laboratory test finding 11/11/2019 [facility] (Interface) [phone] Lipase 100 U/L Normal 73-393 4 CBC [...] eGFR 92 # Calc 6 eGFR Non-Afr. Bahamian 80 # Calc 7 Laboratory test finding 09/02/2019 [facility]/Inhouse CK 58 U/L 26 - 192 Laboratory test finding 09/02/2019 [facility]Inhouse TSH 2.482 ulU/mL 0.60 - 4.8 CBC With Differential 07/24/2019 [facility] (Interface) [phone] White Blood Count 11.4 10 High 4.0-10.0 [...] 36.0-66.0 Lymph % 12.2 % Low 24.0-44.0 [place] % 8.2 % High 0.0-5.0 Eos % 1.1 % Normal 0.0-3.0 Baso % 0.4 % Normal 0.0-1.0 Immature Granulocyte % 0.4 % Normal 0-3.0 Nucleated Red Blood Cell % 0.0 % Normal 0-0 Neutrophils # 8.9 10 High 1.5-8.5 Lymph # 1.4 10 Low 1.5-5.0 [place] # 0.9 10 High 0.0-0.8 Eos # 0.1 10 Normal 0.0-0.5 Baso # 0.1 10 Normal 0.0-0.2 Comprehensive Metabolic Profil 07/23/2019 [facility] (Interface) [phone] Glucose, Fasting 97 mg/dL Normal 70-100 Blood [...] 0.86 Low 1.00-1.93 CBC With Differential 07/23/2019 [facility] (Interface) [phone] White Blood Count 13.2 10 High 4.0-10.0 [...] 36.0-66.0 Lymph % 10.0 % Low 24.0-44.0 [place] % 7.9 % High 0.0-5.0 Eos % 0.2 % Normal 0.0-3.0 Baso % 0.2 % Normal 0.0-1.0 Immature Granulocyte % 0.4 % Normal 0-3.0 Nucleated Red Blood Cell % 0.0 % Normal 0-0 Neutrophils # 10.8 10 High 1.5-8.5 Lymph # 1.3 10 Low 1.5-5.0 [place] # 1.0 10 High 0.0-0.8 Eos # 0.0 10 Normal 0.0-0.5 Baso # 0.0 10 Normal 0.0-0.2 Laboratory test finding 07/22/2019 [facility] (Interface) [phone] Bedside Glucose 97 mg/dL Normal 83-110 Ua W/ Reflex To Culture 07/21/2019 [facility] (Interface) [phone] Appearance, Urine RFX CLEAR Normal Clear Color, Urine RFX YELLOW Normal Yellow PH,Urine RFX 5.0 units Normal 5.0-9.0 Specific [place] Ur Auto RFX 1.024 Normal 1.002-1.035 Protein, [...] /LPF Normal 0-1 Reflex Urine Culture 07/21/2019 [facility] ( Interface) [phone] Reflex Urine Culture FULL REPORT IN L <SEE NOTE> Norm al 9 CBC With Differential 07/21/2019 [facility] (Interface) [phone] White Blood Count 12.5 10 High 4.0-10.0 [...] 36.0-66.0 Lymph % 9.4 % Low 24.0-44.0 [place] % 10.0 % High 0.0-5.0 Eos % 1.0 % Normal 0.0-3.0 Baso % 0.6 % Normal 0.0-1.0 Immature Granulocyte % 0.4 % Normal 0-3.0 Nucleated Red Blood Cell % 0.0 % Normal 0-0 Neutrophils # 9.9 10 High 1.5-8.5 Lymph # 1.2 10 Low 1.5-5.0 [place] # 1.3 10 High 0.0-0.8 Eos # 0.1 10 Normal 0.0-0.5 Baso # 0.1 10 Normal 0.0-0.2 Liver Profile 07/21/2019 [facility] (I nterfa) [phone] Ast/Sgot 12 U/L Normal 7-37 Alt/SGPT 16 U/L Normal 12-78 Alkaline Phosphatase 92 U/L Normal 45-117 Bilirubin,Total 0.3 mg/dL Normal 0.2-1.0 Bilirubin,Direct < 0.1 mg/dL Normal 0.0-0.2 Total Protein 5.7 GM/DL Low 6.4-8.2 Albumin 2.8 GM/DL Low 3.2-5.2 Albumin/Globulin Ratio 0.97 Low 1.00-1.93 Basic Metabolic Profile 07/21/2019 [facility] (Interface) [phone] Glucose, Fasting 110 mg/dL High 70-100 Blood [...] mg/dL Low 8.8-10.2 Laboratory test finding 07/21/2019 [facility] (Interface) [phone] Lipase 88 U/L Normal 73-393 11 U/A DIP FPA 07/21/2019 [facility] Practice Asso ciates Color Urine YELLOW Yellow Appearance CLEAR Clear Specific [place] 1.020 1.00-1.03 PH Urine 6.5 5.0-8.0 Glucose [...] eGFR 92 # Calc 12 eGFR Non-Afr. [place]ian 80 # Calc 13 1 DIAGNOSIS CRITERIA MMB ng/ml Relative Index (RI) NON-AMI < or = 5 N/A SOMMER ZONE > 5 < or = 4 AMI > 5 > 4 2 Troponin I Reference Interva l for [employer] LOCI: 99th Percentile= 0.00-0.045 ng/ml Risk Stratification: [...] Little GFR Left ESRD GFR <15 on WAITER/WAITRESS COCKTAIL LOUNGE 4 note:<nlbl:demographic_chang ed> 5 NORMAL RANGES Age [...] HCT IS 5% LESS SOURCE FOR DATA: [employer] 1800 OPERATION MANUAL( AUTOMATED BLOOD COUNTS AND [...] Little GFR Left ESRD GFR <15 on WAITER/WAITRESS COCKTAIL LOUNGE 9 FULL REPORT IN LAB NOTES (eC W and [employer]). NO GROWTH CLINICAL SIGNIFICANCE 1 ORGANISM 10 Units are mL/min/1.73 m2 Chronic Kidney Disease Staging per NKF: Stage I & II GFR >=60 Normal to Mildly Decreased Stage III GFR 30-59 Moderately Decreased Stage IV GFR 15-29 Severely Decreased Stage V GFR <15 Very Little GFR Left ESRD GFR <15 on WAITER/WAITRESS COCKTAIL LOUNGE 11 note:<nlbl:demographic_chang ed> 12 CKD-EPI 13 CKD-EPI Procedures Description No Information Available Medical Devices Description No Information Available Encounters Type Date Location Provider Dx Diagnosis Office Visit 01/11/2020 1:30p [place] [facility] Pat Mcnamara, FAAFP K21.9 Gastro-esophageal reflux disease without esophagitis E03.9 Hypothyroidism, unspecified Z72.0 Tobacco use M54.9 Dorsalgia, unspecified 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 Office Visit 12/21/2019 1:00p [place] [facility] Diaz Maldonado PA L28.2 Other prurigo Office Visit 12/16/2019 1:00p [place] [facility] Diaz Maldonado PA L28.2 Other prurigo Office Visit 11/23/2019 1:00p [place] [facility] Diaz Maldonado PA S22.009A Unsp fracture of unsp thoracic vertebra, init for clos fx Office Visit 11/16/2019 2:40p [place] [facility] Eliud Maldonado PA S22.009A Unsp fracture of unsp thoracic vertebra, init for clos fx Office Visit 11/09/2019 3:00p [place] [facility] Pat Mcnamara, FAAFP K21.9 Gastro-esophageal reflux disease without esophagitis E03.9 Hypothyroidism, unspecified R01.1 Cardiac murmur, unspecified W18.39xA Other fall on same level, in itial encounter Office Visit 09/02/2019 1:00p [place] [facility] Pat Mcnamara, FAAFP K21.9 Gastro-esophageal reflux disease without esophagitis E03.9 Hypothyroidism, unspecified Z72.0 Tobacco use D64.9 Anemia, unspecified Office Visit 07/29/2019 2:30p [place] [facility] Pat Mcnamara, FAAFP R10.819 Abdominal tenderness, unspecified site K21.9 Gastro-esophageal reflux dis ease without esophagitis Office Visit 07/21/2019 10:40a [place] [facility] Diaz Maldonado, PA R10.9 Unspecified abdominal [...] FAAFP 11/09/2019 R01.1 Cardiac murmur, unspecified Santi Smtih D.O., FAAFP 11/09/2019 W18.39xA Other fall on same level, initia l encounter Nagi Smith D.O., FAAFP 09/02/2019 K21.9 Gastro-esophageal reflux disease without esophagitis Nagi Smith D.O., FAAFP 09/02/2019 E03.9 Hypothyroidism, unspecified Santi Smith D.O., [facility] 09/02/2019 Z72.0 Tobacco use Nagi Smith D.O., [facility] 09/02/2019 D64.9 Anemia Nagi Smith D.O., [facility] 07/29/2019 R10.819 Abdominal tenderness, unspecifie d site Nagi Smith D.O., [facility] 07/29/2019 K21.9 Gastro-esophageal reflux disease without esophagitis Nagi Smith D.O., [facility] 07/21/2019 R10.9 Unspecified abdominal pain Golden Smith D.O., [facility] 07/21/2019 R10.9 Unspecified abdominal pain Lacey Salvador PA Plan of Treatment No Information Available Functional Status Description No Information Available Mental Status Description No Information Available Referrals Refer to Dr Reason for Referral Status Appt Date Fermin Greenfield M.D. PLEASE EVAL PT REQUESTING R E EVAL FOR FAINTNESS TO R/O CARDIAC CAUSES [facility] [address] [place] [address] [phone]
--- OUTSIDE RECORDS SUMMARY | 2020-04-04 15:28 | CCD | Continuity of Care Document ---
Author Author Sowmya SMITH D.O. Organization Unknown Address 3 [facility] 3 [place] [address] Phone [phone] Problems Active Problems Provider Date Hypothyroidism Nagi Smith D.O., PRITESH Onset: 11/22 Gastroesophageal reflux disease Nagi Smtih D.O., PRITESH Onset: 12/08/2018 Difficulty breathing Nagi [...] times daily 120caps Nagi Smith D.O., FA [facility] 12/08/[address] take 1 capsule by mouth once daily 90caps Nagi Smith D.O., [facility] 12/08/2018 Prevnar 13 Suspension as directed 1dose Nagi Smith D.O., [facility] 12/08/2018 Ventolin HFA 108(90Base) mcg/Act A erosol 2 puffs Q 12 HRS prn 8gm Nagi Smith D.O., [facility] P 12/08/2018 Vitamin D 1000Unit Tablets 1 by mouth every day Unknown Calcium 500mg Tablets 1 by mouth twice a day Unknown Mucinex 600mg Tablets ER 12HR Unknown Acetaminophen-Codeine #3 300-30mg Tablets one tab po every 6 hours as needed for pain (Dr. Suresh Leal [facility]) 40tabs Unknown History Medications Hydroxyzine HCL 25mg Tablets one tab po daily, may take second dose if needed 14tabs Nagi Smith D.O., [facility] 12/16/2019 - 12/23/2019 Tramadol HCL 50mg Tablets one tab by mouth daily x 7 days (Istop: [id number]) 7tabs Nag[facility] freeman D.O., [facility] 11/16/2019 - 11/23/2019 Cephalexin 500mg Capsules take one cap po tid x 10 days 30caps Nagi Smith D.O., [facility] - 07/29/2019 Immunizations CPT Code Status Date Vaccine Lot # [id number] Refused 01/11/2020 Influenza Virus Vaccine, Quadrivalent, Slit Virus, Im Use 3Y & Up 42654 Refused 01/21/2019 Influenza Virus Vaccine, Quadrivalent, Slit Virus, Im Use 3Y & Up 59097 Refused 01/21/2019 Prevnar 13 Pneum o. Conj Ped. Vaccine 13 Valent (PCV13) For Im Use Vital Signs Date Vital Result Comment 01/11/2020 1:49pm BP Systolic 100 mmHg BP Diastolic 64 mmHg Body Temperature 98.2 F Heart Rate 94 /min Respiratory Rate 18 /min Height 62.50 inches 5'2.50" Weight 145.00 lb [place] Body Weight 110 lb BMI (Body Mass Index) 26.1 kg/m2 O2 % BldC Oximetry 97 % 12/21/2019 1:08pm BP Systolic 116 mmHg BP Diastolic 68 mmHg Body Temperature 97.1 F Heart Rate 72 /min Respiratory Rate 18 /min Height 62.50 inches 5'2.50" Weight 147.00 lb [place] Body Weight 110 lb BMI (Body Mass Index) 26.5 kg/m2 O2 % BldC Oximetry 97 % Results Test Acquired Date Facility Test Result H/L Range Note CBC With Differential 11/11/2019 [facility]) [phone] White Blood Count 9.1 10 Normal 4.0-10.0 [...] 36.0-66.0 Lymph % 20.0 % Low 24.0-44.0 [place] % 6.7 % High 0.0-5.0 Eos % 1.4 % Normal 0.0-3.0 Baso % 0.7 % Normal 0.0-1.0 Immature Granulocyte % 0.3 % Normal 0-3.0 Nucleated Red Blood Cell % 0.0 % Normal 0-0 Neutrophils # 6.4 10 Normal 1.5-8.5 Lymph # 1.8 10 Normal 1.5-5.0 [place] # 0.6 10 Normal 0.0-0.8 Eos # 0.1 10 Normal 0.0-0.5 Baso # 0.1 10 Normal 0.0-0.2 Cardiac Marker Panel 11/11/2019 [facility] Interface) [phone] CPK Creatine Phosphokinase 54 U/L Normal 26-19 2 CK-MB Value Mass < 1.0 NG/ML Normal <3.6 MB/CK Relative Index 1.85 Normal < Or =4 1 Troponin I < 0.02 NG/ML Normal < 0.10 2 Liver Profile 11/11/2019 [facility] [phone] Ast/Sgot 15 U/L Normal 7-37 Alt/SGPT 17 U/L Normal 12-78 Alkaline Phosphatase 112 U/L Normal 45-117 Bilirubin,Total 0.3 mg/dL Normal 0.2-1.0 Bilirubin,Direct < 0.1 mg/dL Normal 0.0-0.2 Total Protein 6.7 GM/DL Normal 6.4-8.2 Albumin 3.5 GM/DL Normal 3.2-5.2 Albumin/Globulin Ratio 1.1 Low 1.2-2.2 Basic Metabolic Profile 11/11/2019 [facility] (Interface) [phone] Glucose, Fasting 79 mg/dL Normal 70-100 Blood [...] mg/dL Normal 8.8-10.2 Laboratory test finding 11/11/2019 [facility] (Interface) [phone] Lipase 100 U/L Normal 73-393 4 CBC [...] eGFR 92 # Calc 6 eGFR Non-Afr. Kos[place] 80 # Calc 7 Laboratory test finding 09/02/2019 [facility]/Inhouse CK 58 U/L 26 - 192 Laboratory test finding 09/02/2019 [facility]/Inhouse TSH 2.482 ulU/mL 0.60 - 4.8 CBC With Differential 07/24/2019 [facility] (Interface) [phone] White Blood Count 11.4 10 High 4.0-10.0 [...] 36.0-66.0 Lymph % 12.2 % Low 24.0-44.0 [place] % 8.2 % High 0.0-5.0 Eos % 1.1 % Normal 0.0-3.0 Baso % 0.4 % Normal 0.0-1.0 Immature Granulocyte % 0.4 % Normal 0-3.0 Nucleated Red Blood Cell % 0.0 % Normal 0-0 Neutrophils # 8.9 10 High 1.5-8.5 Lymph # 1.4 10 Low 1.5-5.0 [place] # 0.9 10 High 0.0-0.8 Eos # 0.1 10 Normal 0.0-0.5 Baso # 0.1 10 Normal 0.0-0.2 Comprehensive Metabolic Profil 07/23/2019 [facility] (Interface) [phone] Glucose, Fasting 97 mg/dL Normal 70-100 Blood [...] 0.86 Low 1.00-1.93 CBC With Differential 07/23/2019 [facility] (Interface) [phone] White Blood Count 13.2 10 High 4.0-10.0 [...] 36.0-66.0 Lymph % 10.0 % Low 24.0-44.0 [place] % 7.9 % High 0.0-5.0 Eos % 0.2 % Normal 0.0-3.0 Baso % 0.2 % Normal 0.0-1.0 Immature Granulocyte % 0.4 % Normal 0-3.0 Nucleated Red Blood Cell % 0.0 % Normal 0-0 Neutrophils # 10.8 10 High 1.5-8.5 Lymph # 1.3 10 Low 1.5-5.0 [place] # 1.0 10 High 0.0-0.8 Eos # 0.0 10 Normal 0.0-0.5 Baso # 0.0 10 Normal 0.0-0.2 Laboratory test finding 07/22/2019 [facility] (Interface) [phone] Bedside Glucose 97 mg/dL Normal 83-110 Ua W/ Reflex To Culture 07/21/2019 [facility] (Interface) [phone] Appearance, Urine RFX CLEAR Normal Clear Color, Urine RFX YELLOW Normal Yellow PH,Urine RFX 5.0 units Normal 5.0-9.0 Specific [place] Ur Auto RFX 1.024 Normal 1.002-1.035 Protein, [...] /LPF Normal 0-1 Reflex Urine Culture 07/21/2019 [facility] ( Interface) [phone] Reflex Urine Culture FULL REPORT IN L <SEE NOTE> Norm al 9 CBC With Differential 07/21/2019 [facility] (Interface) [phone] White Blood Count 12.5 10 High 4.0-10.0 [...] 36.0-66.0 Lymph % 9.4 % Low 24.0-44.0 [place] % 10.0 % High 0.0-5.0 Eos % 1.0 % Normal 0.0-3.0 Baso % 0.6 % Normal 0.0-1.0 Immature Granulocyte % 0.4 % Normal 0-3.0 Nucleated Red Blood Cell % 0.0 % Normal 0-0 Neutrophils # 9.9 10 High 1.5-8.5 Lymph # 1.2 10 Low 1.5-5.0 [place] # 1.3 10 High 0.0-0.8 Eos # 0.1 10 Normal 0.0-0.5 Baso # 0.1 10 Normal 0.0-0.2 Liver Profile 07/21/2019 [facility] (I nterfa) [phone] Ast/Sgot 12 U/L Normal 7-37 Alt/SGPT 16 U/L Normal 12-78 Alkaline Phosphatase 92 U/L Normal 45-117 Bilirubin,Total 0.3 mg/dL Normal 0.2-1.0 Bilirubin,Direct < 0.1 mg/dL Normal 0.0-0.2 Total Protein 5.7 GM/DL Low 6.4-8.2 Albumin 2.8 GM/DL Low 3.2-5.2 Albumin/Globulin Ratio 0.97 Low 1.00-1.93 Basic Metabolic Profile 07/21/2019 [facility] (Interface) [phone] Glucose, Fasting 110 mg/dL High 70-100 Blood [...] mg/dL Low 8.8-10.2 Laboratory test finding 07/21/2019 [facility] l (Interface) [phone] Lipase 88 U/L Normal 73-393 11 U/A DIP FPA 07/21/2019 [facility] Practice Asso ciates Color Urine YELLOW Yellow Appearance CLEAR Clear Specific [place] 1.020 1.00-1.03 PH Urine 6.5 5.0-8.0 Glucose [...] eGFR 92 # Calc 12 eGFR Non-Afr. [place] 80 # Calc 13 1 DIAGNOSIS CRITERIA MMB ng/ml Relative Index (RI) NON-AMI < or = 5 N/A SOMMER ZONE > 5 < or = 4 AMI > 5 > 4 2 Troponin I Reference Interva l for [employer] LOCI: 99th Percentile= 0.00-0.045 ng/ml Risk Stratification: [...] Little GFR Left ESRD GFR <15 on ARCHITECTURAL ENGINEER 4 note:<nlbl:demographic_chang ed> 5 NORMAL RANGES Age [...] HCT IS 5% LESS SOURCE FOR DATA: [employer] 1800 OPERATION MANUAL( AUTOMATED BLOOD COUNTS AND [...] Little GFR Left ESRD GFR <15 on ARCHITECTURAL ENGINEER 9 FULL REPORT IN LAB NOTES (eC W and [employer]). NO GROWTH CLINICAL SIGNIFICANCE 1 ORGANISM 10 Units are mL/min/1.73 m2 Chronic Kidney Disease Staging per NKF: Stage I & II GFR >=60 Normal to Mildly Decreased Stage III GFR 30-59 Moderately Decreased Stage IV GFR 15-29 Severely Decreased Stage V GFR <15 Very Little GFR Left ESRD GFR <15 on ARCHITECTURAL ENGINEER 11 note:<nlbl:demographic_chang ed> 12 CKD-EPI 13 CKD-EPI Procedures Description No Information Available Medical Devices Description No Information Available Encounters Type Date Location Provider Dx Diagnosis Office Visit 12/21/2019 1:00p [place] [facility] Diaz Maldonado PA L28.2 Other prurigo Office Visit 12/16/2019 1:00p [place] [facility] Diaz Maldonado PA L28.2 Other prurigo Office Visit 11/23/2019 1:00p [place] [facility] Diaz Maldonado, PA S22.009A Unsp fracture of unsp thoracic vertebra, init for clos fx Office Visit 11/16/2019 2:40p [place] [facility] Eliud Maldonado PA S22.009A Unsp fracture of unsp thoracic vertebra, init for clos fx Office Visit 11/09/2019 3:00p [place] [facility] Pat Mcnamara, FAAFP K21.9 Gastro-esophageal reflux disease without esophagitis E03.9 Hypothyroidism, unspecified R01.1 Cardiac murmur, unspecified W18.39xA Other fall on same level, in itial encounter Office Visit 09/02/2019 1:00p [place] [facility] Pat Mcnamara, FAAFP K21.9 Gastro-esophageal reflux disease without esophagitis E03.9 Hypothyroidism, unspecified Z72.0 Tobacco use D64.9 Anemia, unspecified Office Visit 07/29/2019 2:30p [place] [facility] Pat Mcnamara, FAAFP R10.819 Abdominal tenderness, unspecified site K21.9 Gastro-esophageal reflux dis ease without esophagitis Office Visit 07/21/2019 10:40a [place] [facility] Minechanlder Diaz Yanez PA R10.9 Unspecified abdominal pain Assessments Date Code Description Provider 12/21/2019 L28.2 Pruritic rash Michelledonte Long Yanez, BILL 12/16/2019 L28.2 Pruritic rash Michelledonte Long Yanez, PA 11/23/2019 S22.009A Fracture of thoracic spine Lacey Salvador PA 11/16/2019 S22.009A Fracture of thoracic spine Bernardo ligiaLacey oliveira, PA 11/09/2019 K21.9 Gastro-esophageal reflux disease without esophagitis Nagi Smith D.O., [facility] 11/09/2019 E03.9 Hypothyroidism, unspecified Santi Smith D.O., [facility] 11/09/2019 R01.1 Cardiac murmur, unspecified Santi Smith D.O., [facility] 11/09/2019 W18.39xA Other fall on same level, initia l encounter Nagi Smith D.O., [facility] 09/02/2019 K21.9 Gastro-esophageal reflux disease without esophagitis Nagi Smith D.O., [facility] 09/02/2019 E03.9 Hypothyroidism, unspecified Santi Smith D.O., [facility] 09/02/2019 Z72.0 Tobacco use Nagi Smith D.O., [facility] 09/02/2019 D64.9 Anemia [facility]., [facility] 07/29/2019 R10.819 Abdominal tenderness, unspecifie d site [facility]., [facility] 07/29/2019 K21.9 Gastro-esophageal reflux disease without esophagitis [facility]., [facility] 07/21/2019 R10.9 Unspecified abdominal pain Golden Smith D.O., [facility] 07/21/2019 R10.9 Unspecified abdominal pain Lacey Salvador PA Plan of Treatment No Information Available Functional Status Description No Information Available Mental Status Description No Information Available Referrals Refer to Dr Reason for Referral Status Appt Date Fermin Greenfield M.D. PLEASE EVAL PT REQUESTING R E EVAL FOR FAINTNESS TO R/O CARDIAC CAUSES [facility] [id number] [place] [address] [phone]
--- OUTSIDE RECORDS SUMMARY | 2020-04-04 15:30 | CCD ---
Author Author [facility] Organization [facility] Address Unknown Phone Unavailable Care Team Providers Care Palliative Care Nurse Practitioner Name Role Phone Barraclough, Lacey PA Unavailable Unavailable Barraclough, Lacey PA Unavailable Unavailable Barraclough, Lacey PA Unavailable Unavailable Barraclough, Lacey PA Unavailable Unavailable Barraclough, Lacey PA Unavailable Unavailable Barraclough, Lacey PA Unavailable Unavailable Fish, J Nagi Unavailable Unavailable Fish, J Nagi Unavailable Unavailable Fish, J Nagi Unavailable Unavailable Fish, J Nagi Unavailable Unavailable Fish, J Nagi Unavailable Unavailable Fish, J Nagi Unavailable Unavailable Fish, J Nagi Unavailable Unavailable Fish, J Nagi Unavailable Unavailable Fish, J Nagi Unavailable Unavailable Fish, J Nagi Unavailable Unavailable Fish, J Nagi Unavailable Unavailable Fish, J Nagi Unavailable Unavailable Fish, J Nagi Unavailable Unavailable Fish, J Nagi Unavailable Unavailable Fish, J Nagi Unavailable Unavailable Fish, J Nagi Unavailable Unavailable Fish, J Nagi Unavailable Unavailable Fish, J Nagi Unavailable Unavailable Fish, J Nagi Unavailable Unavailable Fish, J Nagi Unavailable Unavailable Fish, J Nagi Unavailable Unavailable Fish, J Nagi Unavailable Unavailable Fish, J Nagi Unavailable Unavailable Fish, J Nagi Unavailable Unavailable Fish, J Nagi Unavailable Unavailable Fish, J Nagi Unavailable Unavailable Fish, J Nagi Unavailable Unavailable Fish, J Nagi Unavailable Unavailable Fish, J Nagi Unavailable Unavailable Fish, J Nagi Unavailable Unavailable Fish, J Nagi Unavailable Unavailable Fish, J Nagi Unavailable Unavailable Fish, J Nagi Unavailable Unavailable Fish, J Nagi Unavailable Unavailable Fish, J Nagi Unavailable Unavailable Fish, J Nagi Unavailable Unavailable Fish, J Nagi Unavailable Unavailable Fish, J Nagi Unavailable Unavailable Fish, J Nagi Unavailable Unavailable Fish, J Nagi Unavailable Unavailable Fish, J Nagi Unavailable Unavailable Fish, J Nagi Unavailable Unavailable Fish, J Nagi Unavailable Unavailable Fish, J Nagi Unavailable Unavailable Fish, J Nagi Unavailable Unavailable Fish, J Nagi Unavailable Unavailable Fish, J Nagi Unavailable Unavailable Fish, J Nagi Unavailable Unavailable Fish, J Nagi Unavailable Unavailable Fish, J Nagi Unavailable Unavailable Fish, J Nagi Unavailable Unavailable Fish, J Nagi Unavailable Unavailable Fish, J Nagi Unavailable Unavailable Fish, J Nagi Unavailable Unavailable Fish, J Nagi Unavailable Unavailable Fish, J Nagi Unavailable Unavailable Fish, J Nagi Unavailable Unavailable Fish, J Nagi Unavailable Unavailable Fish, J Nagi Unavailable Unavailable Fish, J Nagi Unavailable Unavailable Fish, J Nagi Unavailable Unavailable Fish, J Nagi Unavailable Unavailable Fish, J Nagi Unavailable Unavailable Fish, J Nagi Unavailable Unavailable Fish, J Nagi Unavailable Unavailable Fish, J Nagi Unavailable Unavailable Fish, J Nagi Unavailable Unavailable Fish, J Nagi Unavailable Unavailable Fish, J Nagi Unavailable Unavailable Fish, J Nagi Unavailable Unavailable Fish, J Nagi Unavailable Unavailable Fish, J Nagi Unavailable Unavailable Fish, J Nagi Unavailable Unavailable Fish, J Nagi Unavailable Unavailable Fish, J Nagi Unavailable Unavailable Fish, J Nagi Unavailable Unavailable Fish, J Nagi Unavailable Unavailable Fish, J Nagi Unavailable Unavailable Fish, J Nagi Unavailable Unavailable Fish, J Nagi Unavailable Unavailable Fish, J Nagi Unavailable Unavailable Fish, J Nagi Unavailable Unavailable Fish, J Nagi Unavailable Unavailable Fish, J Nagi Unavailable Unavailable MCELHERMARIA INES BAUGH PA Unavailable Unavailable MCELHERANMARIA INES PA Unavailable Unavailable MCELHERANMARIA INES PA Unavailable Unavailable MCELHERAN, MARIA INES PA Unavailable Unavailable MCELHERAN, MARIA INES PA Unavailable Unavailable MCELHERAN, MARIA INES PA Unavailable Unavailable MCELHERAN, MARIA INES PA Unavailable Unavailable MCELHERAN, MARIA INES PA Unavailable Unavailable MCELHERAN, MARIA INES PA Unavailable Unavailable MCELHERAN, MARIA INES PA Unavailable Unavailable MCELHERAN, MARIA INES PA Unavailable Unavailable MCELHERAN, MARIA INES PA Unavailable Unavailable MCELHERAN, MARIA INES PA Unavailable Unavailable MCELHERAN, MARIA INES PA Unavailable Unavailable MCELHERAN, MARIA INES PA Unavailable Unavailable MCELHERAN, MARIA INES PA Unavailable Unavailable MCELHERAN, MARAI INES PA Unavailable Unavailable MCELHERAN, MARIA INES PA Unavailable Unavailable MCELHERAN, MARIA INES PA Unavailable Unavailable MCELHERAN, MARIA INES PA Unavailable Unavailable MCELHERAN, MARIA INES PA Unavailable Unavailable MCELHERAN, MARIA INES PA Unavailable Unavailable MCELHERAN, MARIA INES PA Unavailable Unavailable MCELHERAN, MARIA INES PA Unavailable Unavailable MCELHERAN, MARIA INES PA Unavailable Unavailable MCELHERAN, MARIA INES PA Unavailable Unavailable MCELHERAN, MARIA INES PA Unavailable Unavailable MCELHERAN, MARIA INES PA Unavailable Unavailable FishNaun MD Unavailable Unavailable Fish, B Alisson JEFFERSON Unavailable Unavailable Fish, Naun Vinson MD Unavailable Unavailable Fish, Naun Vinson MD Unavailable Unavailable FishNaun MD Unavailable Unavailable FishNaun MD Unavailable Unavailable FishNaun MD Unavailable Unavailable FishNaun MD Unavailable Unavailable FishNaun MD Unavailable Unavailable FishNaun MD Unavailable Unavailable FishNaun MD Unavailable Unavailable FishNaun MD Unavailable Unavailable Naun Harden MD Unavailable Unavailable FishNaun MD Unavailable Unavailable FishNaun MD Unavailable Unavailable FishNaun MD Unavailable Unavailable FishNaun MD Unavailable Unavailable FishNaun MD Unavailable Unavailable Fish, Naun Vinson MD Unavailable Unavailable FishNaun MD Unavailable Unavailable FishNaun MD Unavailable Unavailable FishNaun MD Unavailable Unavailable FishNaun MD Unavailable Unavailable FishNaun MD Unavailable Unavailable Fish B Alisson JEFFERSON Unavailable Unavailable Fish B Alisson JEFFERSON Unavailable Unavailable FishNaun MD Unavailable Unavailable FishNaun MD Unavailable Unavailable Fish B Alisson JEFFERSON Unavailable Unavailable Fish B Alisson JEFFERSON Unavailable Unavailable FishNaun MD Unavailable Unavailable Fish B Alisson JEFFERSON Unavailable Unavailable FishNaun MD Unavailable Unavailable Fish B Alisson JEFFERSON Unavailable Unavailable Fish B Alisson JEFFERSON Unavailable Unavailable Fish, B Alisson JEFFERSON Unavailable Unavailable Fish, B Alisson JEFFERSON Unavailable Unavailable Fish, B Alisson JEFFERSON Unavailable Unavailable Fish, B Alsison JEFFERSON Unavailable Unavailable Fish, B Alisson JEFFERSON Unavailable Unavailable Fish, B Alisson JEFFERSON Unavailable Unavailable Fish, B Alisson JEFFERSON Unavailable Unavailable Fish, B Alisson JEFFERSON Unavailable Unavailable Fish, B Alisson JEFFERSON Unavailable Unavailable Fish, B Alisson JEFFERSON Unavailable Unavailable Fish, B Alisson JEFFERSON Unavailable Unavailable Fish, B Alisson JEFFERSON Unavailable Unavailable Fish, B Alisson JEFFERSON Unavailable Unavailable Fish, B Alisson JEFFERSON Unavailable Unavailable Fish, B Alisson JEFFERSON Unavailable Unavailable Fish, B Alisson JEFFERSON Unavailable Unavailable Fish, B Alisson JEFFERSON Unavailable Unavailable Fish, B Alisson JEFFERSON Unavailable Unavailable Fish, B Alisson JEFFERSON Unavailable Unavailable Fish, B Alisson JEFFERSON Unavailable Unavailable Fish, B Alisson JEFFERSON Unavailable Unavailable Fish, B Alisson JEFFERSON Unavailable Unavailable Fish, B Alisson JEFFERSON Unavailable Unavailable Fish, B Alisson JEFFERSON Unavailable Unavailable Fish, B Alisson JEFFERSON Unavailable Unavailable Fish, B Alisson JEFFERSON Unavailable Unavailable Fish, B Alisson JEFFERSON Unavailable Unavailable Fish, B lAisson JEFFERSON Unavailable Unavailable Fish, B Alisson JEFFERSON Unavailable Unavailable RADHA, ACACIA PA Unavailable Unavailable RADHA, ACACIA PA Unavailable Unavailable RADHA, ACACIA PA Unavailable Unavailable RADHA, ACACIA PA Unavailable Unavailable RADHA, ACACIA PA Unavailable Unavailable RADHA, ACACIA PA Unavailable Unavailable RADHA, ACACIA PA Unavailable Unavailable RADHA, ACACIA PA Unavailable Unavailable RADHA, ACACIA PA Unavailable Unavailable RADHA, ACACIA PA Unavailable Unavailable RADHA, ACACIA PA Unavailable Unavailable RADHA, ACACIA PA Unavailable Unavailable RADHA, ACACIA PA Unavailable Unavailable RADHA, ACACIA PA Unavailable Unavailable RADHA, ACACIA PA Unavailable Unavailable RADHA, ACACIA PA Unavailable Unavailable RADHA, ACACIA PA Unavailable Unavailable RADHA, ACACIA PA Unavailable Unavailable RADHA, ACACIA PA Unavailable Unavailable RADHA, ACACIA PA Unavailable Unavailable RADHA, ACACIA PA Unavailable Unavailable RADHA, ACACIA PA Unavailable Unavailable RADHA, ACACIA PA Unavailable Unavailable RADHA, ACACIA PA Unavailable Unavailable RADHA, ACACIA PA Unavailable Unavailable RADHA, ACACIA PA Unavailable Unavailable RADHA, ACACIA PA Unavailable Unavailable RADHA, ACACIA PA Unavailable Unavailable RADHA, ACACIA PA Unavailable Unavailable RADHA, ACACIA PA Unavailable Unavailable RADHA, ACACIA PA Unavailable Unavailable RADHA, ACACIA PA Unavailable Unavailable RADHA, ACACIA PA Unavailable Unavailable RADHA, ACACIA PA Unavailable Unavailable RADHA, ACACIA PA Unavailable Unavailable RADHA, ACACIA PA Unavailable Unavailable RADHA, ACACIA PA Unavailable Unavailable RADHA, ACACIA PA Unavailable Unavailable WATSON, M JANY PILE DRIVING SUPERINTENDENT Unavailable Unavailable WATSON, M JANY PILE DRIVING SUPERINTENDENT Unavailable Unavailable WATSON, M JANY PILE DRIVING SUPERINTENDENT Unavailable Unavailable WATSON, M JANY PILE DRIVING SUPERINTENDENT Unavailable Unavailable WATSON, M JANY PILE DRIVING SUPERINTENDENT Unavailable Unavailable WATSON, M JANY PILE DRIVING SUPERINTENDENT Unavailable Unavailable WATSON, M JANY PILE DRIVING SUPERINTENDENT Unavailable Unavailable WATSON, M JANY PILE DRIVING SUPERINTENDENT Unavailable Unavailable WATSON, M JANY PILE DRIVING SUPERINTENDENT Unavailable Unavailable WATSON, M JANY PILE DRIVING SUPERINTENDENT Unavailable Unavailable WATSON, M JANY PILE DRIVING SUPERINTENDENT Unavailable Unavailable WATSON, M JANY PILE DRIVING SUPERINTENDENT Unavailable Unavailable WATSON, M JANY PILE DRIVING SUPERINTENDENT Unavailable Unavailable WATSON, M JANY PILE DRIVING SUPERINTENDENT Unavailable Unavailable WATSON, M JANY PILE DRIVING SUPERINTENDENT Unavailable Unavailable WATSON, M JANY PILE DRIVING SUPERINTENDENT Unavailable Unavailable WATSON, M JANY PILE DRIVING SUPERINTENDENT Unavailable Unavailable WATSON, M JANY PILE DRIVING SUPERINTENDENT Unavailable Unavailable WATSON, M JANY PILE DRIVING SUPERINTENDENT Unavailable Unavailable WATSON, M JANY PILE DRIVING SUPERINTENDENT Unavailable Unavailable WATSON, M JANY PILE DRIVING SUPERINTENDENT Unavailable Unavailable WATSON, M JANY PILE DRIVING SUPERINTENDENT Unavailable Unavailable WATSON, M JANY PILE DRIVING SUPERINTENDENT Unavailable Unavailable WATSON, M JANY PILE DRIVING SUPERINTENDENT Unavailable Unavailable WATSON, M JANY PILE DRIVING SUPERINTENDENT Unavailable Unavailable WATSON, M JANY PILE DRIVING SUPERINTENDENT Unavailable Unavailable WATSON, M JANY PILE DRIVING SUPERINTENDENT Unavailable Unavailable WATSON, M JANY PILE DRIVING SUPERINTENDENT Unavailable Unavailable WATSON, M JANY PILE DRIVING SUPERINTENDENT Unavailable Unavailable WATSON, M JANY PILE DRIVING SUPERINTENDENT Unavailable Unavailable WATSON, M JANY PILE DRIVING SUPERINTENDENT Unavailable Unavailable WATSON, M JANY PILE DRIVING SUPERINTENDENT Unavailable Unavailable WATSON, M JANY PILE DRIVING SUPERINTENDENT Unavailable Unavailable WATSON, M JANY PILE DRIVING SUPERINTENDENT Unavailable Unavailable WATSON, M JANY PILE DRIVING SUPERINTENDENT Unavailable Unavailable WATSON, M JANY PILE DRIVING SUPERINTENDENT Unavailable Unavailable WATSON, M JANY PILE DRIVING SUPERINTENDENT Unavailable Unavailable WATSON, M JANY PILE DRIVING SUPERINTENDENT Unavailable Unavailable WATSON, M JANY PILE DRIVING SUPERINTENDENT Unavailable Unavailable WATSON, M JANY PILE DRIVING SUPERINTENDENT Unavailable Unavailable WATSON, M JANY PILE DRIVING SUPERINTENDENT Unavailable Unavailable WATSON, M JANY PILE DRIVING SUPERINTENDENT Unavailable Unavailable WATSON, M JANY PILE DRIVING SUPERINTENDENT Unavailable Unavailable WATSON, M JANY PILE DRIVING SUPERINTENDENT Unavailable Unavailable Beau WATSON JANY PILE DRIVING SUPERINTENDENT Unavailable Unavailable WATSON, M JANY PILE DRIVING SUPERINTENDENT Unavailable Unavailable WATSON, M JANY PILE DRIVING SUPERINTENDENT Unavailable Unavailable WATSON, M JANY PILE DRIVING SUPERINTENDENT Unavailable Unavailable WATSON, M JANY PILE DRIVING SUPERINTENDENT Unavailable Unavailable Beau WATSON JANY PILE DRIVING SUPERINTENDENT Unavailable Unavailable WATSON, M JANY PILE DRIVING SUPERINTENDENT Unavailable Unavailable WATSON, M JANY PILE DRIVING SUPERINTENDENT Unavailable Unavailable WATSON, Beau JANY PILE DRIVING SUPERINTENDENT Unavailable Unavailable WATSON, M JANY PILE DRIVING SUPERINTENDENT Unavailable Unavailable WATSON, M JANY PILE DRIVING SUPERINTENDENT Unavailable Unavailable WATSON, Beau JANY PILE DRIVING SUPERINTENDENT Unavailable Unavailable Beau WATSONE PILE DRIVING SUPERINTENDENT Unavailable Unavailable WATSON, Beau JANY PILE DRIVING SUPERINTENDENT Unavailable Unavailable MD AMBREEN ZHAO Unavailable Unavailable Verbeck Jr, Hickory Harish PA Unavailable Unavailable Verbeck Jr, Hickory Harish PA Unavailable Unavailable Verbeck Jr, Joel Harish PA Unavailable Unavailable Verbeck Jr, Hickory Harish PA Unavailable Unavailable Verbeck Jr, Hickory Harish PA Unavailable Unavailable Verbeck Jr, Joel Harish PA Unavailable Unavailable Verbeck Jr, Hickory Harish PA Unavailable Unavailable Verbeck Jr, Hickory Harish PA Unavailable Unavailable Verbeck Jr, Hickory Harish PA Unavailable Unavailable Verbeck Jr, Joel Harish PA Unavailable Unavailable Verbeck Jr, Joel Harish PA Unavailable Unavailable Verbeck Jr, Hickory Harish PA Unavailable Unavailable Verbeck Jr, Hickory Harish PA Unavailable Unavailable Verbeck Jr, Joel Harish PA Unavailable Unavailable Verbeck Jr, Hickory Harish PA Unavailable Unavailable Verbeck Jr, Hickory Harish PA Unavailable Unavailable Verbeck Jr, Joel Harish PA Unavailable Unavailable Verbeck Jr, Hickory Harish PA Unavailable Unavailable Verbeck Jr, Hickory Harish PA Unavailable Unavailable Verbeck Jr, Hickory Harish PA Unavailable Unavailable Verbeck Jr, Hickory Harish PA Unavailable Unavailable Verbeck Jr, Joel Harish PA Unavailable Unavailable Verbeck Jr, Hickory Harish PA Unavailable Unavailable Verbeck Jr, Hickory Harish PA Unavailable Unavailable Verbeck Jr, Hickory Harish PA Unavailable Unavailable Verbeck Jr, Hickory Harish PA Unavailable Unavailable Verbeck Jr, Hickory Harish PA Unavailable Unavailable Verbeck Jr, Hickory Harish PA Unavailable Unavailable Verbeck Jr, Joel Harish PA Unavailable Unavailable Verbeck Jr, Hickory Harish PA Unavailable Unavailable Verbeck Jr, Joel Harish PA Unavailable Unavailable Verbeck Jr, Hickory Harish PA Unavailable Unavailable Verbeck Jr, Hickory Harish PA Unavailable Unavailable Verbeck Jr, Hickory Harish PA Unavailable Unavailable Verbeck Jr, Hickory Harish PA Unavailable Unavailable Verbeck Jr, Hickory Harish PA Unavailable Unavailable Fish, J Nagi Unavailable Unavailable Fish, J Nagi Unavailable Unavailable Fish, J Nagi Unavailable Unavailable Fish, J Nagi Unavailable Unavailable Fish, J Nagi Unavailable Unavailable Fish, J Nagi Unavailable Unavailable Fish, J Nagi Unavailable Unavailable Fish, J Nagi Unavailable Unavailable Fish, J Nagi Unavailable Unavailable Fish, J Nagi Unavailable Unavailable Fish, J Nagi Unavailable Unavailable Fish, J Nagi Unavailable Unavailable Fish, J Nagi Unavailable Unavailable Fish, J Nagi Unavailable Unavailable Fish, J Nagi Unavailable Unavailable Fish, J Nagi Unavailable Unavailable Fish, J Nagi Unavailable Unavailable Fish, J Nagi Unavailable Unavailable Fish, J Nagi Unavailable Unavailable Fish, J Nagi Unavailable Unavailable Fish, J Nagi Unavailable Unavailable Fish, J Nagi Unavailable Unavailable Fish, J Nagi Unavailable Unavailable Fish, J Nagi Unavailable Unavailable Fish, J Nagi Unavailable Unavailable Fish, J Nagi Unavailable Unavailable Fish, J Nagi Unavailable Unavailable Fish, J Nagi Unavailable Unavailable Fish, J Nagi Unavailable Unavailable Fish, J Nagi Unavailable Unavailable Fish, J Nagi Unavailable Unavailable Fish, J Nagi Unavailable Unavailable Fish, J Nagi Unavailable Unavailable Fish, J Nagi Unavailable Unavailable Fish, J Nagi Unavailable Unavailable Fish, J Nagi Unavailable Unavailable Fish, J Nagi Unavailable Unavailable Fish, J Nagi Unavailable Unavailable Fish, J Nagi Unavailable Unavailable Fish, J Nagi Unavailable Unavailable Fish, J Nagi Unavailable Unavailable Fish, J Nagi Unavailable Unavailable Fish, J Nagi Unavailable Unavailable Fish, J Nagi Unavailable Unavailable Fish, J Nagi Unavailable Unavailable Fish, J Nagi Unavailable Unavailable Fish, J Nagi Unavailable Unavailable Fish, J Nagi Unavailable Unavailable Fish, J Nagi Unavailable Unavailable Fish, J Nagi Unavailable Unavailable Fish, J Nagi Unavailable Unavailable Fish, J Nagi Unavailable Unavailable Fish, J Nagi Unavailable Unavailable Fish, J Nagi Unavailable Unavailable Fish, J Nagi Unavailable Unavailable Fish, J Nagi Unavailable Unavailable Fish, J Nagi Unavailable Unavailable Fish, J Nagi Unavailable Unavailable Fish, J Nagi Unavailable Unavailable Fish, J Nagi Unavailable Unavailable Fish, J Nagi Unavailable Unavailable Fish, J Nagi Unavailable Unavailable Fish, J Nagi Unavailable Unavailable Fish, J Nagi Unavailable Unavailable Fish, J Nagi Unavailable Unavailable Fish, J Nagi Unavailable Unavailable Fish, J Nagi Unavailable Unavailable Fish, J Nagi Unavailable Unavailable Fish, J Nagi Unavailable Unavailable Fish, J Nagi Unavailable Unavailable Fish, J Nagi Unavailable Unavailable Fish, J Nagi Unavailable Unavailable Fish, J Nagi Unavailable Unavailable Fish, J Nagi Unavailable Unavailable Fish, J Nagi Unavailable Unavailable Fish, J Nagi Unavailable Unavailable Fish, J Nagi Unavailable Unavailable Fish, J Nagi Unavailable Unavailable Fish, J Nagi Unavailable Unavailable Fish, J Nagi Unavailable Unavailable Fish, J Nagi Unavailable Unavailable Fish, J Nagi Unavailable Unavailable Fish, J Nagi Unavailable Unavailable Fish, J Nagi Unavailable Unavailable NANCY STEPHENS MD Unavailable Unavailable NANCY STEPHENS MD Unavailable Unavailable NANCY STEPHENS MD Unavailable Unavailable NANCY STEPHENS MD Unavailable Unavailable NANCY STEPHENS MD Unavailable Unavailable NANCY STEPHENS MD Unavailable Unavailable NANCY STEPHENS MD Unavailable Unavailable NANCY STEPHENS MD Unavailable Unavailable NANCY STEPHENS MD Unavailable Unavailable NANCY STEPHENS MD Unavailable Unavailable NANCY STEPHENS MD Unavailable Unavailable NANCY STEPHENS MD Unavailable Unavailable NANCY STEPHENS MD Unavailable Unavailable NANCY STEPHENS MD Unavailable Unavailable NANCY STEPHENS MD Unavailable Unavailable NANCY STEPHENS MD Unavailable Unavailable NANCY STEPHENS MD Unavailable Unavailable NANCY STEPHENS MD Unavailable Unavailable NANCY STEPHENS MD Unavailable Unavailable NANCY STEPHENS MD Unavailable Unavailable NANCY STEPHENS MD Unavailable Unavailable NANCY STEPHENS MD Unavailable Unavailable NANCY STEPHENS MD Unavailable Unavailable NANCY STEPHENS MD Unavailable Unavailable NANCY STEPHENS MD Unavailable Unavailable NANCY STEPHENS MD Unavailable Unavailable NANCY STEPHENS MD Unavailable Unavailable NANCY STEPHENS MD Unavailable Unavailable NANCY STEPHENS MD Unavailable Unavailable NANCY STEPHENS MD Unavailable Unavailable NANCY STEPHENS MD Unavailable Unavailable NANCY STEPHENS MD Unavailable Unavailable NANCY STEPHENS MD Unavailable Unavailable LETTIERE, A MARIA INES PA Unavailable Unavailable LETTIERE, A MARIA INES PA Unavailable Unavailable LETTIERE, A MARIA INES PA Unavailable Unavailable LETTIERE, A MARIA INES PA Unavailable Unavailable LETTIERE, A MARIA INES PA Unavailable Unavailable LETTIERE, A MARIA INES PA Unavailable Unavailable LETTIERE, A MARIA INES PA Unavailable Unavailable LETTIERE, A MARIA INES PA Unavailable Unavailable LETTIERE, A MARIA INES PA Unavailable Unavailable LETTIERE, A MARIA INES PA Unavailable Unavailable LETTIERE, A MARIA INES PA Unavailable Unavailable LETTIERE, A MARIA INES PA Unavailable Unavailable LETTIERE, A MARIA INES PA Unavailable Unavailable LETTIERE, A MARIA INES PA Unavailable Unavailable LETTIERE, A MARIA INES PA Unavailable Unavailable LETTIERE, A MARIA INES PA Unavailable Unavailable LETTIERE, A MARIA INES PA Unavailable Unavailable LETTIERE, A MARIA INES PA Unavailable Unavailable LETTIERE, A MARIA INES PA Unavailable Unavailable LETTIERE, A MARIA INES PA Unavailable Unavailable LETTIERE, A MARIA INES PA Unavailable Unavailable LETTIERE, A MARIA INES PA Unavailable Unavailable LETTIERE, A MARIA INES PA Unavailable Unavailable LETTIERE, A MARIA INES PA Unavailable Unavailable LETTIERE, A MARIA INES PA Unavailable Unavailable LETTIERE, A MARIA INES PA Unavailable Unavailable LETTIERE, A MARIA INES PA Unavailable Unavailable LETTIERE, A MARIA INES PA Unavailable Unavailable LETTIERE, A MARIA INES PA Unavailable Unavailable Re-disclosure Warning The records that you are about to access may contain information from federally-assisted alcohol or drug abuse programs. If such information is present, then the following federally mandated warning applies: This information has been disclosed to you from records protected by federal confidentiality rules (42 CFR part 2). The federal rules prohibit you from making any further disclosure of this information unless further disclosure is expressly permitted by the written consent of the person to whom it pertains or as otherwise permitted by 42 CFR part 2. A general authorization for the release of medical or other information is NOT sufficient for this purpose. The Federal rules restrict any use of the information to criminally investigate or prosecute any alcohol or drug abuse patient.The records that you are about to access may contain highly sensitive health information, the redisclosure of which is protected by Article 27-F of the [facility] Public Health law. If you continue you may have access to information: Regarding HIV / AIDS; Provided by facilities licensed or operated by the [facility] Office of Mental Health; or Provided by the [facility] Office for People With Developmental Disabilities. If such information is present, then the following [facility] mandated warning applies: This information has been disclosed to you from confidential records which are protected by state law. State law prohibits you from making any further disclosure of this information without the specific written consent of the person to whom it pertains, or as otherwise permitted by law. Any unauthorized further disclosure in violation of state law may result in a fine or correction sentence or both. A general authorization for the release of medical or other information is NOT sufficient authorization for further disc losure. Allergies and Adverse Reactions Type Description Substance Reaction Status Data Source(s ) Penicillin Penicillin Penicillin active [facility] ([facility]) Family History Family Member Name Family Member Gender Family Member Status Date o f Status Description Data Source(s) Unknown Unknown Problem [facility] ([facility]) Encounters Encounter Providers Location Date Indications Data Source(s ) Office Visit Attender: MARIA INES KHAN Physical Therapy 01/27/2020 12:00:00 PM EST [facility] ([facility]) Outpatient Attender: Nagi Harden [place] [facility] 01/11/2020 01:30:0 0 PM EDT [facility] ([facility] Outpatient Attender: Lacey KHAN [place] [facility] [facility] 12/21/2019 01:00:00 PM EDT [facility] Office Visit Attender: MARIA INES KHAN Physical Therapy 12/16/2019 03:00:00 PM EDT MEDENT ([facility]) Outpatient Attender: Lacey pedroza 12/16/2019 01:00:00 PM EDT [facility] ([facility] 11/30/2019 01:00:00 AM EDT - 020 09:50:24 AM EDT NETSMART ([facility]) Outpatient Attender: Lacey pedroza 11/23/2019 01:00:00 PM EDT MED[facility] ([facility] Office Visit Attender: MARIA INES KHAN Physical Therapy 11/19/2019 01:45:00 PM EDT MED[facility] ([facility]) Outpatient Attender: Lacey KHAN [place] [facility] [place] 11/16/2019 02:40:00 PM EDT [facility] ([facility] Office Visit Attender: NANCY STEPHENS MD Physical Therapy 09:15:00 AM EDT MEDENT ([facility]) Outpatient Attender: aNgi Harden [place] Office 11/09/2019 03:00:0 0 PM EDT MED[facility] ([facility] Emergency Attender: NANCY STEPHENS MD Physical Therapy 04:47:00 PM EDT MEDENT ([facility]) Outpatient Attender: Nagi Harden [place] Office 09/02/2019 01:00:0 0 PM EDT MED[facility] ([facility] Outpatient Referrer: Nagi Harden 08/02/2019 05:43:00 AM E DT [facility] Outpatient Attender: Nagi Harden [place] Office 07/29/2019 02:30:0 0 PM EDT MED[facility] ([facility] Outpatient Attender: Lacey KHAN [place] [facility] 07/21/2019 10:40:00 AM EDT MED[facility] ([facility] Outpatient Attender: Alisson Harden MD Physical Therapy 06/23 11:00:00 AM EDT MED[facility] ([facility]) Outpatient Referrer: Nagi Harden 06/24/2019 04:20:00 AM E DT [facility] Outpatient Referrer: Nagi Harden 06/17/2019 03:15:00 PM E DT [facility] Outpatient Referrer: Nagi Harden 06/17/2019 03:14:00 PM E DT [facility] Outpatient Referrer: Nagi Harden 06/17/2019 03:10:00 PM E DT [facility] Outpatient Attender: Nagializa Harden [place] Office 06/17/2019 01:45:0 0 PM EDT MED[facility] ([facility] Outpatient Attender: Nagializa Harden [place] Office 05/27/2019 01:45:0 0 PM EST [facility] ([facility] Outpatient Referrer: Nagi Harden 05/26/2019 11:34:[address] [facility] Outpatient Referrer: Nagi Harden 05/19/2019 12:28:[address] [facility] Outpatient Referrer: Nagi Harden 05/18/2019 04:20:[address] [facility] Outpatient Attender: Nagi Harden [place] Office 05/13/2019 02:00:0 0 PM EST MED[facility] ([facility] Outpatient Referrer: Nagi Harden 05/12/2019 10:59:[address] [facility] Outpatient Attender: ACACIA verdugo 05/09/2019 01:50:00 PM EST MED[facility] ([facility]) Outpatient Referrer: Nagi Harden 05/07/2019 12:19:[address] [facility] Outpatient Referrer: Nagi Harden 05/07/2019 12:02:[address] [facility] Outpatient Referrer: Nagi Harden 05/04/2019 03:02:[address] [facility] Outpatient Referrer: Nagi Harden 05/04/2019 03:02:[address] [facility] Outpatient Referrer: Nagi Harden 05/04/2019 03:01:[address] [facility] Outpatient Referrer: Nagi Harden 05/03/2019 09:53:[address] [facility] Outpatient Referrer: Nagi Harden 04/29/2019 12:03:[address] [facility] Outpatient Referrer: MD AMBREEN ZHAO 04/29/2019 12:01:00 PM EST [facility] Outpatient Attender: Nagi Harden [place] Office 04/29/2019 10:15:0 0 AM EST [facility] ([facility] Outpatient Attender: Harish Hannah Jr [place] Office 09:00:00 AM EST [facility] ([facility] Outpatient Attender: Harish Hannah Jr [place] Office 02:15:00 PM EST [facility] ([facility] Outpatient Attender: JANY WATSON NP [facility] 02/12 09:20:00 AM EST MEDENT ([facility] Outpatient Attender: MARIA INES shultz 02/10/2019 02:35:00 PM EST MED[facility] ([facility] Immunizations Vaccine Date Status Description Data Source(s) New in 2012. IIV4 01/11/2020 01:50:00 PM EDT completed [facility] ([facility] Medications Medication Brand Name Start Date Product Form Dose Route Admi nistrative Instructions Pharmacy Instructions Status Indications Reaction Description Data Source(s) Tums Ultra 1000 1000 MG Tums Ultra 1000 12/16/2019 01:00:00 AM EDT completed NETSMART ([facility]) Hydroxyzine Hydrochloride 25 MG Oral Tablet Hydroxyzine HCL 12/16/2019 12:00:00 AM EDT ORAL completed MEDENT ([facility] Calcium + D3 600-800 MG-UNIT Calcium + D3 11/30/2019 01:00:00 AM EDT completed NETSMART ([facility]) Alendronate Sodium 35 MG Alendronate Sodium 11/30/2019 01:00:00 AM EDT completed NETSMART ([facility]) Levothyroxine Sodium 75 MCG Levothyroxine Sodium 11/30/2019 01:00:0 0 AM EDT 1.0 {tablet} completed NETSMART ([facility]) Omeprazole 40 MG Omeprazole 11/30/2019 01:00:00 AM EDT completed NETSMART ([facility] ) Vitamin D3 5000 UNIT Vitamin D3 11/30/2019 01:00:00 AM EDT completed NETSMART ([facility]) Acetaminophen-Codeine 300-30 MG Acetaminophen-Codeine 2019 01:00:00 AM EDT 1.0 {tablet} completed N ETSMART ([facility]) Tylenol Extra Strength 500 MG Tylenol Extra Strength 11/30/2019 01:00:00 AM EDT completed NETSMA RT ([facility]) Acetaminophen 300 MG / Codeine Phosphate 30 MG Oral Ta blet Acetaminophen-Codeine #3 11/19/2019 12:00:00 AM EDT active MED[facility] ([facility] tramadol hydrochloride 50 MG Oral Tablet Tramadol HCL 11/16/2019 12:00:00 AM EDT ORAL completed MED[facility] ([facility] Cephalexin 500 MG Oral Capsule Cephalexin 07/21/2019 12:00:00 AM EDT completed MEDENT ([facility] Doxycycline Monohydrate 100 MG Oral Capsule Doxycycline Desha hydrate 05/09/2019 12:00:00 AM EST ORAL active M EDENT ([facility]) Hydrochlorothiazide 12.5 MG Oral Capsule Hydrochlorothiazide 03/19/2019 12:00:00 AM EST ORAL completed MEDENT ([facility] 200 ACTUAT Albuterol 0.09 MG/ACTUAT Metered Dose Inhaler [Pr oAir] Proair HFA 02/10/2019 12:00:00 AM EST RESPIRATORY active MEDENT ([facility]) Prednisone 20 MG Oral Tablet Prednisone 02/10/2019 12:00:00 AM EST completed MEDENT ([facility]) Doxycycline Monohydrate 100 MG Oral Tablet Doxycycline Monoh ydrate 02/10/2019 12:00:00 AM EST ORAL completed MED[facility] ([facility]) Insurance Providers Payer name Policy type / Coverage type Policy ID Covered democrat ID Covered democrat's relationship to diaz Policy Diaz Plan Information EMEDNY [id number] SP [id number] MEDICARE [id number] SP [id number] MEDICAID M [id number] MEDICARE C [id number] S [id number] J46 MEDICAID [id number] SP [id number] MEDICARE C [id number] S [id number] J46 MEDICAID M [id number] S [id number] MEDICARE [id number] SP [id number] A MEDICARE [id number] SP [id number] [id number] [facility] [id number] [place] [id number] MEDICARE [id number] SP [id number] [place] [id number] Self [id number] Medicare Primary [id number] Self [id number] [place] [id number] Self [id number] Primary [id number] Self [id number] [place] [id number] Self [id number] Medicare Primary [id number] Self [id number] [place] [id number] Self [id number] Primary [id number] Self [id number] [place] Part B [id number] Self [id number] [place] Primary [id number] Self [id number] Medicaid Medigap Part B [id number] Self [id number] Medicare (Part B) Medicare Primary [id number] Self [id number] Medicaid Medigap Part B [id number] Self [id number] Medicare (Part B) Medicare Primary [id number] Self [id number] MEDICARE C [id number] S [id number] [place] [id number] Self [id number] [place] Primary [id number] Self [id number] [place] [id number] Self [id number] [place] Primary [id number] Self [id number] Medicaid Medicaid [id number] Self [id number] Medicare Medicare Primary [id number] Self 07 [id number] Medicaid Medicaid [id number] Self [id number] Medicare Medicare Primary [id number] Self 07 [id number] Medicaid Medicaid [id number] Self [id number] Medicare Medicare Primary [id number] Self 07 [id number] Medicaid Medigap Part B [id number] Self [id number] Medicare (Part B) Medicare Primary [id number] Self [id number] Medicaid Medigap Part B [id number] Self [id number] Medicare (Part B) Medicare Primary [id number] Self [id number] Medicaid Medicaid [id number] Self [id number] Medicare Medicare Primary [id number] Self 07 [id number] MEDICAID [id number] SP [id number] MEDICARE [id number] SP [id number] A Medicaid Medicaid [id number] Self [id number] Medicare Medicare Primary [id number] Self 07 [id number] Medicaid Medicaid [id number] Self [id number] Medicare Medicare Primary [id number] Self 07 [id number] MEDICARE C [id number] S [id number] A Medicaid Medicaid Self Medicare Medicare Primary Self MEDICAID [id number] SP [id number] [place] Primary Self Medicaid Medigap Part B Self Medicare Medicare Primary Self MEDICAID [id number] SP [id number] [place] Part B Self Medicare [facility] Medicare Primary Self MEDICARE [id number] SP [id number] A [id number] A [id number] Problems, Conditions, and Diagnoses Code Display Name Description Problem Type Effective Dates Data Source(s) 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 nervous system involvement Problem 11/16/2019 01:00:00 AM EDT NETSMART ([facility]) Z91.81 History of falling History of falling Problem 0 01:00:00 AM EDT NETSMART ([facility]) Z60.2 Problems related to living alone Problems related to l iving alone Problem 11/16/2019 01:00:00 AM EDT NETSMART ([facility] ) Z79.83 USP (current) use of bisphosphonat es USP (current) use of bisphosphonates Problem 11/16/2019 01:00:00 AM EDT NETSMART ([facility]) Z87.891 Personal history of nicotine dependence Personal history of nicotine dependence Problem 11/16/2019 01:00:00 AM EDT NETSMART ([facility]) M48.54XD Collapsed vertebra, not else where classified, thoracic region, subsequent encounter for fracture with routine healing Collapsed vertebra, not elsewhere classified, thoracic region, subsequent encounter for fracture with routine healing Problem 11/16/2019 01:00:00 AM EDT NETSMART ([facility]) [id number] Thyroid nodule Thyroid nodule Problem 06/24/2019 12:00: 00 AM EDT MEDENT ([facility]) Surgeries/Procedures Procedure Description Date Indications Data Source(s) RADEX SPINE THORACIC 2 VIEWS 01/27/2020 12:00:00 AM ES T MEDENT ([facility] RADEX SPINE LUMBOSACRAL 2/3 VIEWS 01/27/2020 12:00:00 AM EST MEDENT ([facility]) RADEX SPINE THORACIC 2 VIEWS 12/16/2019 12:00:00 AM ED T MEDENT ([facility]) RADEX SPINE LUMBOSACRAL 2/3 VIEWS 12/16/2019 12:00:00 AM EDT MEDENT ([facility]) RADEX SPINE THORACIC 2 VIEWS 11/19/2019 12:00:00 AM ED T MEDENT ([facility]) RADEX SPINE LUMBOSACRAL 2/3 VIEWS 11/19/2019 12:00:00 AM EDT MEDENT ([facility]) CLTX VRT BDY FX W/O MANJ REQ&W/CSTING/BRACING 11/12/19 12:00:00 AM EDT MEDENT ([facility]) LARYNGOSCOPY FLEXIBLE FIBEROPTIC DIAGNOSTIC 05/05/2019 12:00:00 AM EST MEDENT ([facility] ) Results ID Date Data Source [id number] 01/11/2020 02:51:00 PM EDT MEDENT ([facility] Name Value Range Interpretation Code Description Data Dana rce(s) Supporting Document(s) Erythrocyte sedimentation rate by Westergren method 15 0-20 MEDENT ([facility] ID Date Data Source [id number] 01/11/2020 02:50:00 PM EDT MEDENT ([facility] Name Value Range Interpretation Code Description Data Dana rce(s) Supporting Document(s) Calcidiol [Mass/volume] in Serum or Plasma 46.6 ng/mL 30.0-100.0 MEDENT ([facility] Vitamin D deficiency has been defined by the [place] of Medicine and an Endocrine Society practice guideline as a level of serum 25-OH vitamin D less than 20 ng/mL (1,2). The Endocrine Society went on to further define vitamin D insufficiency as a level between 21 and 29 ng/mL (2). 1. IOM ([place]). 2010. Di etary reference intakes for calcium and D. [place]: The National Academies Press. 2. Ashish PADRON, Tricia REYNAGA, Wilfred mueller MALLOY, et al. Evaluation, treatment, and prevention of vitamin D deficiency: an Endocrine Society clinical practice guideline. JCEM. 2010; 96(2):1911-30. ID Date Data Source [id number] 01/11/2020 02:48:00 PM EDT MEDENT ([facility] Name Value Range Interpretation Code Description Data Dana rce(s) Supporting Document(s) Trig 149 mg/dL 40-200 MEDENT ([facility] NORMAL RANGES Age WBC RBC HGB HCT [...] HCT IS 5% LESS SOURCE FOR DATA: Korrio DYN 1800 OPERATION MANUAL( AUTOMATED BLOOD COUNTS [...] DESIRABLE: <130 MG/DL <110 MG/DL BORDERLINE-HIGH RISK: 130- 159 MG/DL 110-129 MG/DL HIGH RISK: >160 MG/DL >130 MG/DL *CHILDREN AND ADOLESCENTS REPRESENTS INDIVIDUALA AGED 2-19 YEARS EXCLUSIVE. Chol 220 mg/dL 0-200 Above high normal [facility] ([facility] NORMAL RANGES Age WBC RBC HGB HCT [...] HCT IS 5% LESS SOURCE FOR DATA: Instagram 1800 OPERATION MANUAL( AUTOMATED BLOOD COUNTS AND [...] DESIRABLE: <130 MG/DL <110 MG/DL BORDERLINE-HIGH RISK: 130- 159 MG/DL 110-129 MG/DL HIGH RISK: >160 MG/DL >130 MG/DL *CHILDREN AND ADOLESCENTS REPRESENTS INDIVIDUALA AGED 2-19 YEARS EXCLUSIVE. LDL_C 122 Calc 75-129 [facility] NORMAL RANGES Age WBC RBC HGB HCT [...] HCT IS 5% LESS SOURCE FOR DATA: Instagram 1800 OPERATION MANUAL( AUTOMATED BLOOD COUNTS AND [...] DESIRABLE: <130 MG/DL <110 MG/DL BORDERLINE-HIGH RISK: 130- 159 MG/DL 110-129 MG/DL HIGH RISK: >160 MG/DL >130 MG/DL *CHILDREN AND ADOLESCENTS REPRESENTS INDIVIDUALA AGED 2-19 YEARS EXCLUSIVE. Cho/HDL Ratio 3.2 CALC SCYFIX ([facility] NORMAL RANGES Age WBC RBC HGB HCT [...] HCT IS 5% LESS SOURCE FOR DATA: Instagram 1800 OPERATION MANUAL( AUTOMATED BLOOD COUNTS AND [...] DESIRABLE: <130 MG/DL <110 MG/DL BORDERLINE-HIGH RISK: 130- 159 MG/DL 110-129 MG/DL HIGH RISK: >160 MG/DL >130 MG/DL *CHILDREN AND ADOLESCENTS REPRESENTS INDIVIDUALA AGED 2-19 YEARS EXCLUSIVE. Cholesterol in HDL [Mass/volume] in Serum or Plasma 68 mg/dL 45-65 Above high normal [facility] ([facility] NORMAL RANGES Age WBC RBC HGB HCT [...] HCT IS 5% LESS SOURCE FOR DATA: Instagram 1800 OPERATION MANUAL( AUTOMATED BLOOD COUNTS AND [...] DESIRABLE: <130 MG/DL <110 MG/DL BORDERLINE-HIGH RISK: 130- 159 MG/DL 110-129 MG/DL HIGH RISK: >160 MG/DL >130 MG/DL *CHILDREN AND ADOLESCENTS REPRESENTS INDIVIDUALA AGED 2-19 YEARS EXCLUSIVE. ID Date Data Source [id number] 01/11/2020 02:48:00 PM EDT MEDENT ([facility] Name Value Range Interpretation Code Description Data Dana rce(s) Supporting Document(s) Glu 91 mg/dL 70-110 [facility] NORMAL RANGES Age WBC RBC HGB HCT [...] HCT IS 5% LESS SOURCE FOR DATA: TONY DYN 1800 OPERATION MANUAL( AUTOMATED BLOOD COUNTS [...] DESIRABLE: <130 MG/DL <110 MG/DL BORDERLINE-HIGH RISK: 130- 159 MG/DL 110-129 MG/DL HIGH RISK: >160 MG/DL >130 MG/DL *CHILDREN AND ADOLESCENTS REPRESENTS INDIVIDUALA AGED 2-19 YEARS EXCLUSIVE. Creat 0.8 mg/dL 0.5-1.0 [facility] ([facility] NORMAL RANGES Age WBC RBC HGB HCT [...] HCT IS 5% LESS SOURCE FOR DATA: Instagram 1800 OPERATION MANUAL( AUTOMATED BLOOD COUNTS AND [...] DESIRABLE: <130 MG/DL <110 MG/DL BORDERLINE-HIGH RISK: 130- 159 MG/DL 110-129 MG/DL HIGH RISK: >160 MG/DL >130 MG/DL *CHILDREN AND ADOLESCENTS REPRESENTS INDIVIDUALA AGED 2-19 YEARS EXCLUSIVE. BUN/Creatinine Ratio 25.0 CALC MEDENT ([facility] NORMAL RANGES Age WBC RBC HGB HCT [...] HCT IS 5% LESS SOURCE FOR DATA: Instagram 1800 OPERATION MANUAL( AUTOMATED BLOOD COUNTS AND [...] DESIRABLE: <130 MG/DL <110 MG/DL BORDERLINE-HIGH RISK: 130- 159 MG/DL 110-129 MG/DL HIGH RISK: >160 MG/DL >130 MG/DL *CHILDREN AND ADOLESCENTS REPRESENTS INDIVIDUALA AGED 2-19 YEARS EXCLUSIVE. BUN 19 mg/dL 8-23 [facility] ([facility] NORMAL RANGES Age WBC RBC HGB HCT [...] HCT IS 5% LESS SOURCE FOR DATA: Korrio DYN 1800 OPERATION MANUAL( AUTOMATED BLOOD COUNTS [...] DESIRABLE: <130 MG/DL <110 MG/DL BORDERLINE-HIGH RISK: 130- 159 MG/DL 110-129 MG/DL HIGH RISK: >160 MG/DL >130 MG/DL *CHILDREN AND ADOLESCENTS REPRESENTS INDIVIDUALA AGED 2-19 YEARS EXCLUSIVE. K 4.6 mmol/L 3.5-5.1 [facility] NORMAL RANGES Age WBC RBC HGB HCT [...] HCT IS 5% LESS SOURCE FOR DATA: Instagram 1800 OPERATION MANUAL( AUTOMATED BLOOD COUNTS AND [...] DESIRABLE: <130 MG/DL <110 MG/DL BORDERLINE-HIGH RISK: 130- 159 MG/DL 110-129 MG/DL HIGH RISK: >160 MG/DL >130 MG/DL *CHILDREN AND ADOLESCENTS REPRESENTS INDIVIDUALA AGED 2-19 YEARS EXCLUSIVE. Na 141 mmol/L 136-145 [facility] ([facility] NORMAL RANGES Age WBC RBC HGB HCT [...] HCT IS 5% LESS SOURCE FOR DATA: Instagram 1800 OPERATION MANUAL( AUTOMATED BLOOD COUNTS AND [...] DESIRABLE: <130 MG/DL <110 MG/DL BORDERLINE-HIGH RISK: 130- 159 MG/DL 110-129 MG/DL HIGH RISK: >160 MG/DL >130 MG/DL *CHILDREN AND ADOLESCENTS REPRESENTS INDIVIDUALA AGED 2-19 YEARS EXCLUSIVE. CA 9.2 mg/dL 8.6-10.2 [facility] NORMAL RANGES Age WBC RBC HGB HCT [...] HCT IS 5% LESS SOURCE FOR DATA: Instagram 1800 OPERATION MANUAL( AUTOMATED BLOOD COUNTS AND [...] DESIRABLE: <130 MG/DL <110 MG/DL BORDERLINE-HIGH RISK: 130- 159 MG/DL 110-129 MG/DL HIGH RISK: >160 MG/DL >130 MG/DL *CHILDREN AND ADOLESCENTS REPRESENTS INDIVIDUALA AGED 2-19 YEARS EXCLUSIVE. Co2 27.0 mmol/L 22.0-29.0 [facility] NORMAL RANGES Age WBC RBC HGB HCT [...] HCT IS 5% LESS SOURCE FOR DATA: Instagram 1800 OPERATION MANUAL( AUTOMATED BLOOD COUNTS AND [...] DESIRABLE: <130 MG/DL <110 MG/DL BORDERLINE-HIGH RISK: 130- 159 MG/DL 110-129 MG/DL HIGH RISK: >160 MG/DL >130 MG/DL *CHILDREN AND ADOLESCENTS REPRESENTS INDIVIDUALA AGED 2-19 YEARS EXCLUSIVE. CL 104.4 mmol/L 98.0-107.0 [facility] ([facility] NORMAL RANGES Age WBC RBC HGB HCT [...] HCT IS 5% LESS SOURCE FOR DATA: Instagram 1800 OPERATION MANUAL( AUTOMATED BLOOD COUNTS AND [...] DESIRABLE: <130 MG/DL <110 MG/DL BORDERLINE-HIGH RISK: 130- 159 MG/DL 110-129 MG/DL HIGH RISK: >160 MG/DL >130 MG/DL *CHILDREN AND ADOLESCENTS REPRESENTS INDIVIDUALA AGED 2-19 YEARS EXCLUSIVE. A/G Ratio 2.1 CALC [facility] ([facility] NORMAL RANGES Age WBC RBC HGB HCT [...] HCT IS 5% LESS SOURCE FOR DATA: Instagram 1800 OPERATION MANUAL( AUTOMATED BLOOD COUNTS AND [...] DESIRABLE: <130 MG/DL <110 MG/DL BORDERLINE-HIGH RISK: 130- 159 MG/DL 110-129 MG/DL HIGH RISK: >160 MG/DL >130 MG/DL *CHILDREN AND ADOLESCENTS REPRESENTS INDIVIDUALA AGED 2-19 YEARS EXCLUSIVE. TP 5.7 g/dL 6.6-8.7 Below low normal [facility] ( [facility] NORMAL RANGES Age WBC RBC HGB HCT [...] HCT IS 5% LESS SOURCE FOR DATA: Instagram 1800 OPERATION MANUAL( AUTOMATED BLOOD COUNTS AND [...] DESIRABLE: <130 MG/DL <110 MG/DL BORDERLINE-HIGH RISK: 130- 159 MG/DL 110-129 MG/DL HIGH RISK: >160 MG/DL >130 MG/DL *CHILDREN AND ADOLESCENTS REPRESENTS INDIVIDUALA AGED 2-19 YEARS EXCLUSIVE. Alb 3.9 g/dL 3.4-4.8 [facility] ([facility] NORMAL RANGES Age WBC RBC HGB HCT [...] HCT IS 5% LESS SOURCE FOR DATA: Instagram 1800 OPERATION MANUAL( AUTOMATED BLOOD COUNTS AND [...] DESIRABLE: <130 MG/DL <110 MG/DL BORDERLINE-HIGH RISK: 130- 159 MG/DL 110-129 MG/DL HIGH RISK: >160 MG/DL >130 MG/DL *CHILDREN AND ADOLESCENTS REPRESENTS INDIVIDUALA AGED 2-19 YEARS EXCLUSIVE. Globulin 1.8 CALC [facility] ([facility] NORMAL RANGES Age WBC RBC HGB HCT [...] HCT IS 5% LESS SOURCE FOR DATA: Instagram 1800 OPERATION MANUAL( AUTOMATED BLOOD COUNTS AND [...] DESIRABLE: <130 MG/DL <110 MG/DL BORDERLINE-HIGH RISK: 130- 159 MG/DL 110-129 MG/DL HIGH RISK: >160 MG/DL >130 MG/DL *CHILDREN AND ADOLESCENTS REPRESENTS INDIVIDUALA AGED 2-19 YEARS EXCLUSIVE. Alt (SGPT) 10 U/L 0-41 [facility] ([facility] NORMAL RANGES Age WBC RBC HGB HCT [...] HCT IS 5% LESS SOURCE FOR DATA: Korrio DYN 1800 OPERATION MANUAL( AUTOMATED BLOOD COUNTS [...] DESIRABLE: <130 MG/DL <110 MG/DL BORDERLINE-HIGH RISK: 130- 159 MG/DL 110-129 MG/DL HIGH RISK: >160 MG/DL >130 MG/DL *CHILDREN AND ADOLESCENTS REPRESENTS INDIVIDUALA AGED 2-19 YEARS EXCLUSIVE. Alp 101.7 U/L 35-129 [facility] ([facility] NORMAL RANGES Age WBC RBC HGB HCT [...] HCT IS 5% LESS SOURCE FOR DATA: Instagram 1800 OPERATION MANUAL( AUTOMATED BLOOD COUNTS AND [...] DESIRABLE: <130 MG/DL <110 MG/DL BORDERLINE-HIGH RISK: 130- 159 MG/DL 110-129 MG/DL HIGH RISK: >160 MG/DL >130 MG/DL *CHILDREN AND ADOLESCENTS REPRESENTS INDIVIDUALA AGED 2-19 YEARS EXCLUSIVE. Tbili 0.08 mg/dL 0.0-1.2 [facility] ([facility] NORMAL RANGES Age WBC RBC HGB HCT [...] HCT IS 5% LESS SOURCE FOR DATA: Instagram 1800 OPERATION MANUAL( AUTOMATED BLOOD COUNTS AND [...] DESIRABLE: <130 MG/DL <110 MG/DL BORDERLINE-HIGH RISK: 130- 159 MG/DL 110-129 MG/DL HIGH RISK: >160 MG/DL >130 MG/DL *CHILDREN AND ADOLESCENTS REPRESENTS INDIVIDUALA AGED 2-19 YEARS EXCLUSIVE. Ast (Sgot) 15 U/L 0-40 [facility] ([facility] NORMAL RANGES Age WBC RBC HGB HCT [...] HCT IS 5% LESS SOURCE FOR DATA: Instagram 1800 OPERATION MANUAL( AUTOMATED BLOOD COUNTS AND [...] DESIRABLE: <130 MG/DL <110 MG/DL BORDERLINE-HIGH RISK: 130- 159 MG/DL 110-129 MG/DL HIGH RISK: >160 MG/DL >130 MG/DL *CHILDREN AND ADOLESCENTS REPRESENTS INDIVIDUALA AGED 2-19 YEARS EXCLUSIVE. Osmolality-Calculated 284.1 CALC MED ENT ([facility] NORMAL RANGES Age WBC RBC HGB HCT [...] HCT IS 5% LESS SOURCE FOR DATA: Instagram 1800 OPERATION MANUAL( AUTOMATED BLOOD COUNTS AND [...] DESIRABLE: <130 MG/DL <110 MG/DL BORDERLINE-HIGH RISK: 130- 159 MG/DL 110-129 MG/DL HIGH RISK: >160 MG/DL >130 MG/DL *CHILDREN AND ADOLESCENTS REPRESENTS INDIVIDUALA AGED 2-19 YEARS EXCLUSIVE. eGFR 78 # [facility] ( [facility] NORMAL RANGES Age WBC RBC HGB HCT MCV PLT Adult M 4.1-10.9 4.20-6.30 12.0-18.0 37.0-51.0 80-97 140-440 Adult F 4.1-10.9 4.04-5.48 12.0-18.0 37.0-51.0 80- 140-440 0 -1 Yr 5.0-20.0 3.9-5.9 15-18 [...] HCT IS 5% LESS SOURCE FOR DATA: Instagram 1800 OPERATION MANUAL( AUTOMATED BLOOD COUNTS AND [...] DESIRABLE: <130 MG/DL <110 MG/DL BORDERLINE-HIGH RISK: 130- 159 MG/DL 110-129 MG/DL HIGH RISK: >160 MG/DL >130 MG/DL *CHILDREN AND ADOLESCENTS REPRESENTS INDIVIDUALA AGED 2-19 YEARS EXCLUSIVE. Anion Gap 15 mmol/L [facility] NORMAL RANGES Age WBC RBC HGB HCT [...] HCT IS 5% LESS SOURCE FOR DATA: Instagram 1800 OPERATION MANUAL( AUTOMATED BLOOD COUNTS AND [...] DESIRABLE: <130 MG/DL <110 MG/DL BORDERLINE-HIGH RISK: 130- 159 MG/DL 110-129 MG/DL HIGH RISK: >160 MG/DL >130 MG/DL *CHILDREN AND ADOLESCENTS REPRESENTS INDIVIDUALA AGED 2-19 YEARS EXCLUSIVE. eGFR Non-Afr. Mos[place] 68 # [facility] ([facility] NORMAL RANGES Age WBC RBC HGB HCT [...] HCT IS 5% LESS SOURCE FOR DATA: Instagram 1800 OPERATION MANUAL( AUTOMATED BLOOD COUNTS AND [...] DESIRABLE: <130 MG/DL <110 MG/DL BORDERLINE-HIGH RISK: 130- 159 MG/DL 110-129 MG/DL HIGH RISK: >160 MG/DL >130 MG/DL *CHILDREN AND ADOLESCENTS REPRESENTS INDIVIDUALA AGED 2-19 YEARS EXCLUSIVE. ID Date Data Source [id number] 01/11/2020 02:48:00 PM EDT [facility] Name Value Range Interpretation Code Description Data Dana rce(s) Supporting Document(s) Creatine kinase [Enzymatic activity/volume] in Serum or Plasma 34 U /L 26-192 [facility] ([facility] NORMAL RANGES Age WBC RBC HGB HCT [...] HCT IS 5% LESS SOURCE FOR DATA: Instagram 1800 OPERATION MANUAL( AUTOMATED BLOOD COUNTS AND [...] ADOLESCENTS REPRESENTS INDIVIDUALA AGED 2-19 YEARS EXCLUSIVE. ID Date Data Source [id number] 01/11/2020 02:48:00 PM EDT [facility] ([facility] Name Value Range Interpretation Code Description Data Dana rce(s) Supporting Document(s) RBC 4.07 10E6/uL 4.20-6.30 Below low [facility] NORMAL RANGES Age WBC RBC HGB HCT [...] HCT IS 5% LESS SOURCE FOR DATA: Instagram 1800 OPERATION MANUAL( AUTOMATED BLOOD COUNTS AND [...] ADOLESCENTS REPRESENTS INDIVIDUALA AGED 2-19 YEARS EXCLUSIVE. WBC 6.7 10E3/uL 4.1-10.9 [facility] ([facility] NORMAL RANGES Age WBC RBC HGB HCT [...] HCT IS 5% LESS SOURCE FOR DATA: Instagram 1800 OPERATION MANUAL( AUTOMATED BLOOD COUNTS AND [...] ADOLESCENTS REPRESENTS INDIVIDUALA AGED 2-19 YEARS EXCLUSIVE. HCT 40.2 % 37.0-51.0 [facility] ([facility] NORMAL RANGES Age WBC RBC HGB HCT [...] HCT IS 5% LESS SOURCE FOR DATA: Instagram 1800 OPERATION MANUAL( AUTOMATED BLOOD COUNTS AND [...] ADOLESCENTS REPRESENTS INDIVIDUALA AGED 2-19 YEARS EXCLUSIVE. HGB 13.7 g/dL 12.0-18.0 [facility] NORMAL RANGES Age WBC RBC HGB HCT [...] HCT IS 5% LESS SOURCE FOR DATA: Instagram 1800 OPERATION MANUAL( AUTOMATED BLOOD COUNTS AND [...] ADOLESCENTS REPRESENTS INDIVIDUALA AGED 2-19 YEARS EXCLUSIVE. MCV 98.8 fL 80.0-97.0 Above high normal [facility] ([facility] NORMAL RANGES Age WBC RBC HGB HCT [...] HCT IS 5% LESS SOURCE FOR DATA: Instagram 1800 OPERATION MANUAL( AUTOMATED BLOOD COUNTS AND [...] ADOLESCENTS REPRESENTS INDIVIDUALA AGED 2-19 YEARS EXCLUSIVE. MCHC 34.1 g/dL 31.0-36.0 [facility] ([facility] NORMAL RANGES Age WBC RBC HGB HCT [...] HCT IS 5% LESS SOURCE FOR DATA: Instagram 1800 OPERATION MANUAL( AUTOMATED BLOOD COUNTS AND [...] ADOLESCENTS REPRESENTS INDIVIDUALA AGED 2-19 YEARS EXCLUSIVE. MCH 33.7 pg 26.0-32.0 Above high normal [facility] ([facility] NORMAL RANGES Age WBC RBC HGB HCT [...] HCT IS 5% LESS SOURCE FOR DATA: Instagram 1800 OPERATION MANUAL( AUTOMATED BLOOD COUNTS AND [...] ADOLESCENTS REPRESENTS INDIVIDUALA AGED 2-19 YEARS EXCLUSIVE. Lym% 27.7 % 10.0-58.5 [facility] ([facility] NORMAL RANGES Age WBC RBC HGB HCT [...] HCT IS 5% LESS SOURCE FOR DATA: Instagram 1800 OPERATION MANUAL( AUTOMATED BLOOD COUNTS AND [...] ADOLESCENTS REPRESENTS INDIVIDUALA AGED 2-19 YEARS EXCLUSIVE. RDW-CV 13.4 % 11.5-14.5 [facility] ([facility] NORMAL RANGES Age WBC RBC HGB HCT [...] HCT IS 5% LESS SOURCE FOR DATA: Instagram 1800 OPERATION MANUAL( AUTOMATED BLOOD COUNTS AND [...] ADOLESCENTS REPRESENTS INDIVIDUALA AGED 2-19 YEARS EXCLUSIVE. PLT 311 10E3/uL 140-440 [facility] ([facility] NORMAL RANGES Age WBC RBC HGB HCT [...] HCT IS 5% LESS SOURCE FOR DATA: Korrio DYN 1800 OPERATION MANUAL( AUTOMATED BLOOD COUNTS [...] ADOLESCENTS REPRESENTS INDIVIDUALA AGED 2-19 YEARS EXCLUSIVE. Neut% 65.3 % 37.0-92.0 [facility] ([facility] NORMAL RANGES Age WBC RBC HGB HCT [...] HCT IS 5% LESS SOURCE FOR DATA: Instagram 1800 OPERATION MANUAL( AUTOMATED BLOOD COUNTS AND [...] ADOLESCENTS REPRESENTS INDIVIDUALA AGED 2-19 YEARS EXCLUSIVE. MXD% 7.0 % 0.1-24.0 [facility] ([facility] NORMAL RANGES Age WBC RBC HGB HCT [...] HCT IS 5% LESS SOURCE FOR DATA: Instagram 1800 OPERATION MANUAL( AUTOMATED BLOOD COUNTS AND [...] ADOLESCENTS REPRESENTS INDIVIDUALA AGED 2-19 YEARS EXCLUSIVE. Lym# 1.9 10E3/uL 0.6-4.1 [facility] NORMAL RANGES Age WBC RBC HGB HCT [...] HCT IS 5% LESS SOURCE FOR DATA: Instagram 1800 OPERATION MANUAL( AUTOMATED BLOOD COUNTS AND [...] ADOLESCENTS REPRESENTS INDIVIDUALA AGED 2-19 YEARS EXCLUSIVE. Neut# 4.3 % 2.0-7.8 [facility] ([facility] NORMAL RANGES Age WBC RBC HGB HCT [...] HCT IS 5% LESS SOURCE FOR DATA: Instagram 1800 OPERATION MANUAL( AUTOMATED BLOOD COUNTS AND [...] ADOLESCENTS REPRESENTS INDIVIDUALA AGED 2-19 YEARS EXCLUSIVE. MPV 11.1 fL 9.0-13.0 [facility] NORMAL RANGES Age WBC RBC HGB HCT [...] HCT IS 5% LESS SOURCE FOR DATA: Instagram 1800 OPERATION MANUAL( AUTOMATED BLOOD COUNTS AND [...] ADOLESCENTS REPRESENTS INDIVIDUALA AGED 2-19 YEARS EXCLUSIVE. MXD# 0.5 10E3/uL 0.0-1.8 [facility] ([facility] NORMAL RANGES Age WBC RBC HGB HCT [...] HCT IS 5% LESS SOURCE FOR DATA: Instagram 1800 OPERATION MANUAL( AUTOMATED BLOOD COUNTS AND [...] ADOLESCENTS REPRESENTS INDIVIDUALA AGED 2-19 YEARS EXCLUSIVE. ID Date Data Source [id number] 01/11/2020 02:47:00 PM EDT [facility] ([facility] Name Value Range Interpretation Code Description Data Dana rce(s) Supporting Document(s) Thyrotropin [Units/volume] in Serum or Plasma 4.097 ulU/mL 0.60-4.8 [facility] ([facility] ID Date Data Source [id number] 11/11/2019 03:38:00 PM EDT [facility] ([facility] Name Value Range Interpretation Code Description Data Dana rce(s) Supporting Document(s) Lipoprotein lipase [Enzymatic activity/volume] in Serum or P lasma 100 U/L 73-393 Normal (applies to non-numeric results) [facility] ([facility] <content>note:<nlbl:[email or web address]> </content>
<content></content> ID Date Data Source [id number] 11/11/2019 03:38:00 PM EDT [facility] ([facility] Name Value Range Interpretation Code Description Data Dana rce(s) Supporting Document(s) Glucose, Fasting 79 mg/dL 70-100 Normal (applies to non-numeric results) [facility] ([facility] Blood Urea Nitrogen 15 mg/dL 7-18 Normal (applies to non-nume fiorella results) [facility] ([facility] Glomerular Filtration Rate Laboratory test result Normal (applies to non- numeric results) [facility] ) <content>Units are mL/min/1.73 m2</content>
<content></content>
<content>Chronic Kidney Disease Staging per NKF:</content>
<content></content>
<content>Stage I & II GFR >=60 Normal to Mildly Decreased</content>
<content>Stage III GFR 30-59 Moderately Decreased</content>
<content>Stage IV GFR 15-29 Severely Decreased</content>
<content>Stage V GFR <15 Very Little GFR Left</content>
<content>ESRD GFR <15 on SECURITY CLERK</content>
<content></content> Creatinine For GFR 0.71 mg/dL 0.55-1.30 Normal (applies to non -numeric results) [facility] ([facility] Sodium Level 139 meq/L 136-145 Normal (applies to non-numeric res ults) [facility] ([facility] Carbon Dioxide Level 30 meq/L 21-32 Normal (applies to non-num thu results) [facility] ([facility] Chloride Level 108 meq/L 98-107 Above high normal [facility] ([facility] Potassium Serum 3.8 meq/L 3.5-5.1 Normal (applies to non-numeric results) [facility] ([facility] Anion Gap 1 meq/L 8-16 Below low normal [facility] ( [facility] Calcium Level 8.8 mg/dL 8.8-10.2 Normal (applies to non-numeric re sults) [facility] ([facility] ID Date Data Source [id number] 11/11/2019 03:38:00 PM EDT [facility] Name Value Range Interpretation Code Description Data Dana rce(s) Supporting Document(s) Alt/SGPT 17 U/L 12-78 Normal (applies to non-numeric resul ts) [facility] ([facility] Ast/Sgot 15 U/L 7-37 Normal (applies to non-numeric resul ts) [facility] ([facility] Alkaline Phosphatase 112 U/L 45-117 Normal (applies to non-num thu results) [facility] ([facility] Total Protein 6.7 GM/DL 6.4-8.2 Normal (applies to non-numeric re sults) [facility] ([facility] Bilirubin,Total 0.3 mg/dL 0.2-1.0 Normal (applies to non-numeric results) [facility] ([facility] Bilirubin,Direct Laboratory test result 0.0-0.2 Normal ( applies to non-numeric results) [facility] ([facility] Albumin/Globulin Ratio 1.1 1.2-2.2 Below low normal [facility] ([facility] Albumin 3.5 GM/DL 3.2-5.2 Normal (applies to non-numeric resul ts) [facility] ([facility] ID Date Data Source [id number] 11/11/2019 03:38:00 PM EDT [facility] Name Value Range Interpretation Code Description Data Dana rce(s) Supporting Document(s) CK-MB Value Mass Laboratory test result Normal ( applies to non-numeric results) [facility] ([facility] CPK Creatine Phosphokinase 54 U/L 26-192 Blanca l (applies to non-numeric results) [facility] MB/CK Relative Index 1.85 Normal (applies to non-num thu results) [facility] ([facility] <content>DIAGNOSIS CRITERIA</content>
<content>MMB ng/ml Relative Index (RI)</content>
<content>NON-AMI < or = 5 N/A</content>
<content>SOMMER ZONE > 5 < or = 4</content>
<content>AMI > 5 > 4</content>
<content></content> Troponin I Laboratory test result Normal (applies to non-n umeric results) [facility] ([facility] <content>Troponin I Reference Interval f or Siemens [place] LOCI:</content>
<content></content>
<content>99th Percentile= 0.00-0.045 ng/ml</content>
<content></content>
<content>Risk Stratification:</content>
<content><= 0.10 ng/ml Decreased Risk for Adverse Clinical</content>
<content>Events.</content>
<content>0.10-1.50 ng/ml Increased Risk for Adverse Clinical</content>
<content>Events. Evaluation of additional</content>
<content>criterion and/or repeat testing in 2-6</content>
<content>hours is suggested to rule out myocardial</content>
<content>damage.</content>
<content>>= 1.50 ng/ml Indicative of Myocardial Injury.</content>
<content></content> ID Date Data Source [id number] 11/11/2019 03:38:00 PM EDT [facility] ([facility] Name Value Range Interpretation Code Description Data Dana rce(s) Supporting Document(s) White Blood Count 9.1 10 4.0-10.0 Normal (applies to non-numeri c results) [facility] ([facility] Red Blood Count 4.45 10 4.00-5.40 Normal (applies to non-numeric results) [facility] ([facility] Hemoglobin 14.3 g/dL 12.0-15.5 Normal (applies to non-numeric resul ts) [facility] ([facility] Hematocrit 43.9 % 36.0-47.0 Normal (applies to non-numeric resul ts) [facility] ([facility] Mean Corpuscular Volume 98.7 fl 80.0-96.0 Above high normal [facility] ([facility] Mean Corpuscular Hemoglobin 32.1 pg 27.0-33.0 Norm al (applies to non-numeric results) [facility] ([facility] Mean Corpuscular HGB Conc 32.6 g/dL 32.0-36.5 Normal (applies to non-numeric results) [facility] ([facility] Red Cell Distribution Width 13.1 % 11.5-14.5 Norm al (applies to non-numeric results) [facility] ([facility] Platelet Count, Automated 298 10 150-450 Normal (applies to non-numeric results) [facility] ([facility] Lymph % 20.0 % 24.0-44.0 Below low normal [facility] ( [facility] Neutrophils % 70.9 % 36.0-66.0 Above high normal [facility] ([facility] Desha % 6.7 % 0.0-5.0 Above high normal [facility] ([facility] Eos % 1.4 % 0.0-3.0 Normal (applies to non-numeric resul ts) [facility] ([facility] Baso % 0.7 % 0.0-1.0 Normal (applies to non-numeric resul ts) [facility] ([facility] Nucleated Red Blood Cell % 0.0 % 0-0 Normal (applies to n on-numeric results) [facility] ([facility] Neutrophils # 6.4 10 1.5-8.5 Normal (applies to non-numeric re sults) [facility] ([facility] Immature Granulocyte % 0.3 % 0-3.0 Normal (applies to non-n umeric results) [facility] ([facility] Desha # 0.6 10 0.0-0.8 Normal (applies to non-numeric resul ts) [facility] ([facility] Lymph # 1.8 10 1.5-5.0 Normal (applies to non-numeric resul ts) [facility] ([facility] Baso # 0.1 10 0.0-0.2 Normal (applies to non-numeric resul ts) [facility] ([facility] Eos # 0.1 10 0.0-0.5 Normal (applies to non-numeric resul ts) [facility] ([facility] ID Date Data Source [id number] 09/02/2019 01:30:00 PM EDT [facility] Name Value Range Interpretation Code Description Data Dana rce(s) Supporting Document(s) WBC 11.1 10E3/uL 4.1-10.9 Above high normal [facility] ([facility] NORMAL RANGES Age WBC RBC HGB HCT [...] HCT IS 5% LESS SOURCE FOR DATA: Instagram 1800 OPERATION MANUAL( AUTOMATED BLOOD COUNTS AND [...] Normal 80 and above >32 mL/min Normal HGB 11.6 g/dL 12.0-18.0 Below low normal [facility] ( [facility] NORMAL RANGES Age WBC RBC HGB HCT [...] HCT IS 5% LESS SOURCE FOR DATA: Instagram 1800 OPERATION MANUAL( AUTOMATED BLOOD COUNTS AND [...] Normal 80 and above >32 mL/min Normal RBC 3.69 10E6/uL 4.20-6.30 Below low normal [facility] ([facility] NORMAL RANGES Age WBC RBC HGB HCT [...] HCT IS 5% LESS SOURCE FOR DATA: Instagram 1800 OPERATION MANUAL( AUTOMATED BLOOD COUNTS AND [...] Normal 80 and above >32 mL/min Normal HCT 35.7 % 37.0-51.0 Below low normal [facility] ( [facility] NORMAL RANGES Age WBC RBC HGB HCT [...] HCT IS 5% LESS SOURCE FOR DATA: Instagram 1800 OPERATION MANUAL( AUTOMATED BLOOD COUNTS AND [...] Normal 80 and above >32 mL/min Normal MCH 31.4 pg 26.0-32.0 [facility] NORMAL RANGES Age WBC RBC HGB HCT [...] HCT IS 5% LESS SOURCE FOR DATA: Instagram 1800 OPERATION MANUAL( AUTOMATED BLOOD COUNTS AND [...] Normal 80 and above >32 mL/min Normal MCV 96.7 fL 80.0-97.0 [facility] NORMAL RANGES Age WBC RBC HGB HCT [...] HCT IS 5% LESS SOURCE FOR DATA: Instagram 1800 OPERATION MANUAL( AUTOMATED BLOOD COUNTS AND [...] Normal 80 and above >32 mL/min Normal MCHC 32.5 g/dL 31.0-36.0 [facility] NORMAL RANGES Age WBC RBC HGB HCT [...] HCT IS 5% LESS SOURCE FOR DATA: [facility] DYN 1800 OPERATION MANUAL( AUTOMATED BLOOD COUNTS [...] Normal 80 and above >32 mL/min Normal PLT 391 10E3/uL 140-440 [facility] NORMAL RANGES Age WBC RBC HGB HCT [...] HCT IS 5% LESS SOURCE FOR DATA: Instagram 1800 OPERATION MANUAL( AUTOMATED BLOOD COUNTS AND [...] Normal 80 and above >32 mL/min Normal RDW-CV 14.9 % 11.5-14.5 Above high normal [facility] ([facility] NORMAL RANGES Age WBC RBC HGB HCT [...] HCT IS 5% LESS SOURCE FOR DATA: Instagram 1800 OPERATION MANUAL( AUTOMATED BLOOD COUNTS AND [...] Normal 80 and above >32 mL/min Normal MXD% 11.8 % 0.1-24.0 [facility] ([facility] NORMAL RANGES Age WBC RBC HGB HCT [...] HCT IS 5% LESS SOURCE FOR DATA: Instagram 1800 OPERATION MANUAL( AUTOMATED BLOOD COUNTS AND [...] Normal 80 and above >32 mL/min Normal Neut% 66.3 % 37.0-92.0 [facility] ([facility] NORMAL RANGES Age WBC RBC HGB HCT [...] HCT IS 5% LESS SOURCE FOR DATA: Instagram 1800 OPERATION MANUAL( AUTOMATED BLOOD COUNTS AND [...] Normal 80 and above >32 mL/min Normal Lym% 21.9 % 10.0-58.5 [facility] ([facility] NORMAL RANGES Age WBC RBC HGB HCT [...] HCT IS 5% LESS SOURCE FOR DATA: Instagram 1800 OPERATION MANUAL( AUTOMATED BLOOD COUNTS AND [...] Normal 80 and above >32 mL/min Normal Neut# 7.4 % 2.0-7.8 [facility] ([facility] NORMAL RANGES Age WBC RBC HGB HCT [...] HCT IS 5% LESS SOURCE FOR DATA: Instagram 1800 OPERATION MANUAL( AUTOMATED BLOOD COUNTS AND [...] Normal 80 and above >32 mL/min Normal MXD# 1.3 10E3/uL 0.0-1.8 [facility] ([facility] NORMAL RANGES Age WBC RBC HGB HCT [...] HCT IS 5% LESS SOURCE FOR DATA: [employer] DYN 1800 OPERATION MANUAL( AUTOMATED BLOOD COUNTS [...] Normal 80 and above >32 mL/min Normal Lym# 2.4 10E3/uL 0.6-4.1 [facility] ([facility] NORMAL RANGES Age WBC RBC HGB HCT [...] HCT IS 5% LESS SOURCE FOR DATA: Instagram 1800 OPERATION MANUAL( AUTOMATED BLOOD COUNTS AND [...] Normal 80 and above >32 mL/min Normal MPV 11.4 fL 9.0-13.0 [facility] NORMAL RANGES Age WBC RBC HGB HCT [...] HCT IS 5% LESS SOURCE FOR DATA: Instagram 1800 OPERATION MANUAL( AUTOMATED BLOOD COUNTS AND [...] Normal 80 and above >32 mL/min Normal ID Date Data Source [id number] 09/02/2019 01:30:00 PM EDT [facility] ([facility] Name Value Range Interpretation Code Description Data Dana rce(s) Supporting Document(s) Glu 77 mg/dL 70-110 [facility] NORMAL RANGES Age WBC RBC HGB HCT [...] HCT IS 5% LESS SOURCE FOR DATA: Instagram 1800 OPERATION MANUAL( AUTOMATED BLOOD COUNTS AND [...] Normal 80 and above >32 mL/min Normal BUN 15 mg/dL 8- [facility] NORMAL RANGES Age WBC RBC HGB HCT [...] HCT IS 5% LESS SOURCE FOR DATA: Instagram 1800 OPERATION MANUAL( AUTOMATED BLOOD COUNTS AND [...] Normal 80 and above >32 mL/min Normal BUN/Creatinine Ratio 21.4 [facility] ([facility] NORMAL RANGES Age WBC RBC HGB HCT [...] HCT IS 5% LESS SOURCE FOR DATA: Instagram 1800 OPERATION MANUAL( AUTOMATED BLOOD COUNTS AND [...] Normal 80 and above >32 mL/min Normal Creat 0.7 mg/dL 0.5-1.0 [facility] NORMAL RANGES Age WBC RBC HGB HCT [...] HCT IS 5% LESS SOURCE FOR DATA: Instagram 1800 OPERATION MANUAL( AUTOMATED BLOOD COUNTS AND [...] Normal 80 and above >32 mL/min Normal Co2 24.8 mmol/L 22.0-29.0 [facility] NORMAL RANGES Age WBC RBC HGB HCT [...] HCT IS 5% LESS SOURCE FOR DATA: Instagram 1800 OPERATION MANUAL( AUTOMATED BLOOD COUNTS AND [...] Normal 80 and above >32 mL/min Normal CA 9.5 mg/dL 8.6-10.2 [facility] ([facility] NORMAL RANGES Age WBC RBC HGB HCT [...] HCT IS 5% LESS SOURCE FOR DATA: Instagram 1800 OPERATION MANUAL( AUTOMATED BLOOD COUNTS AND [...] Normal 80 and above >32 mL/min Normal Na 139 mmol/L 136-145 [facility] ([facility] NORMAL RANGES Age WBC RBC HGB HCT [...] HCT IS 5% LESS SOURCE FOR DATA: Instagram 1800 OPERATION MANUAL( AUTOMATED BLOOD COUNTS AND [...] Normal 80 and above >32 mL/min Normal Anion Gap 16 mmol/L [facility] NORMAL RANGES Age WBC RBC HGB HCT [...] HCT IS 5% LESS SOURCE FOR DATA: Instagram 1800 OPERATION MANUAL( AUTOMATED BLOOD COUNTS AND [...] Normal 80 and above >32 mL/min Normal CL 102.7 mmol/L 98.0-107.0 [facility] ([facility] NORMAL RANGES Age WBC RBC HGB HCT [...] HCT IS 5% LESS SOURCE FOR DATA: Instagram 1800 OPERATION MANUAL( AUTOMATED BLOOD COUNTS AND [...] Normal 80 and above >32 mL/min Normal K 4.6 mmol/L 3.5-5.1 [facility] ([facility] NORMAL RANGES Age WBC RBC HGB HCT MCV PLT Adult M 4.1-10.9 4.20-6.30 12.0-18.0 37.0-51.0 80-97 140-440 Adult F 4.1-10.9 4.04-5.48 12.0-18.0 37.0-51.0 80- 140-440 0 -1 Yr 5.0-20.0 3.9-5.9 15-18 [...] HCT IS 5% LESS SOURCE FOR DATA: [employer] DYN 1800 OPERATION MANUAL( AUTOMATED BLOOD COUNTS [...] Normal 80 and above >32 mL/min Normal eGFR Non-Afr. [place] 80 # [facility] ([facility] NORMAL RANGES Age WBC RBC HGB HCT [...] HCT IS 5% LESS SOURCE FOR DATA: Instagram 1800 OPERATION MANUAL( AUTOMATED BLOOD COUNTS AND [...] Normal 80 and above >32 mL/min Normal eGFR 92 # [facility] ( [facility] NORMAL RANGES Age WBC RBC HGB HCT [...] HCT IS 5% LESS SOURCE FOR DATA: Instagram 1800 OPERATION MANUAL( AUTOMATED BLOOD COUNTS AND [...] Normal 80 and above >32 mL/min Normal ID Date Data Source [id number] 09/02/2019 01:30:00 PM EDT [facility] Name Value Range Interpretation Code Description Data Dana rce(s) Supporting Document(s) Creatine kinase [Enzymatic activity/volume] in Serum or Plasma 58 U /L 26-192 [facility] ([facility] NORMAL RANGES Age WBC RBC HGB HCT [...] HCT IS 5% LESS SOURCE FOR DATA: Instagram 1800 OPERATION MANUAL( AUTOMATED BLOOD COUNTS AND [...] Normal 80 and above >32 mL/min Normal ID Date Data Source [id number] 09/02/2019 01:30:00 PM EDT [facility] ([facility] Name Value Range Interpretation Code Description Data Dana rce(s) Supporting Document(s) Thyrotropin [Units/volume] in Serum or Plasma 2.482 ulU/mL 0.60-4.8 [facility] ([facility] ID Date Data Source [id number] 07/24/2019 05:55:00 AM EDT [facility] ([facility] Name Value Range Interpretation Code Description Data Dana rce(s) Supporting Document(s) Red Blood Count 3.59 10 4.00-5.40 Below low normal [facility] ([facility] White Blood Count 11.4 10 4.0-10.0 Above high normal [facility] ([facility] Hemoglobin 11.8 g/dL 12.0-15.5 Below low normal [facility] ( [facility] Hematocrit 35.9 % 36.0-47.0 Below low normal [facility] ( [facility] Mean Corpuscular Volume 100.0 fl 80.0-96.0 Above high normal [facility] ([facility] Mean Corpuscular Hemoglobin 32.9 pg 27.0-33.0 Norm al (applies to non-numeric results) [facility] ([facility] Red Cell Distribution Width 13.5 % 11.5-14.5 Norm al (applies to non-numeric results) [facility] ([facility] ) Mean Corpuscular HGB Conc 32.9 g/dL 32.0-36.5 Normal (applies to non-numeric results) [facility] ([facility] ) Platelet Count, Automated 279 10 150-450 Normal (applies to non-numeric results) [facility] ([facility] ) Lymph % 12.2 % 24.0-44.0 Below low normal [facility] ( [facility] Desha % 8.2 % 0.0-5.0 Above high normal [facility] ([facility] Neutrophils % 77.7 % 36.0-66.0 Above high normal [facility] ([facility] Immature Granulocyte % 0.4 % 0-3.0 Normal (applies to non-n umeric results) [facility] ([facility] Baso % 0.4 % 0.0-1.0 Normal (applies to non-numeric resul ts) [facility] ([facility] Eos % 1.1 % 0.0-3.0 Normal (applies to non-numeric resul ts) [facility] ([facility] Neutrophils # 8.9 10 1.5-8.5 Above high normal [facility] ([facility] Nucleated Red Blood Cell % 0.0 % 0-0 Normal (applies to n on-numeric results) [facility] ([facility] Lymph # 1.4 10 1.5-5.0 Below low normal [facility] ( [facility] Baso # 0.1 10 0.0-0.2 Normal (applies to non-numeric resul ts) [facility] ([facility] Desha # 0.9 10 0.0-0.8 Above high normal [facility] ([facility] Eos # 0.1 10 0.0-0.5 Normal (applies to non-numeric resul ts) [facility] ([facility] ID Date Data Source [id number] 07/24/2019 05:55:00 AM EDT [facility] ([facility]) Name Value Range Interpretation Code Description Data Dana rce(s) Supporting Document(s) White Blood Count 11.4 10 4.0-10.0 Above high normal [facility] ([facility]) Red Blood Count 3.59 10 4.00-5.40 Below low normal [facility] ([facility]) Hemoglobin 11.8 g/dL 12.0-15.5 Below low normal [facility] ( [facility]) Hematocrit 35.9 % 36.0-47.0 Below low normal [facility] ( [facility]) Mean Corpuscular Volume 100.0 fl 80.0-96.0 Above high [facility] Mean Corpuscular Hemoglobin 32.9 pg 27.0-33.0 Norm al (applies to non-numeric results) [facility] ([facility]) Mean Corpuscular HGB Conc 32.9 g/dL 32.0-36.5 Normal (applies to non-numeric results) [facility] ([facility]) Platelet Count, Automated 279 10 150-450 Normal (applies to non-numeric results) [facility] ([facility]) Red Cell Distribution Width 13.5 % 11.5-14.5 Norm al (applies to non-numeric results) [facility] ([facility]) Lymph % 12.2 % 24.0-44.0 Below low normal [facility] ( [facility]) Neutrophils % 77.7 % 36.0-66.0 Above high normal [facility] ([facility]) Desha % 8.2 % 0.0-5.0 Above high normal [facility] ([facility]) Eos % 1.1 % 0.0-3.0 Normal (applies to non-numeric resul ts) [facility] ([facility]) Baso % 0.4 % 0.0-1.0 Normal (applies to non-numeric resul ts) [facility] ([facility]) Immature Granulocyte % 0.4 % 0-3.0 Normal (applies to non-n umeric results) [facility] ([facility]) Nucleated Red Blood Cell % 0.0 % 0-0 Normal (applies to n on-numeric results) [facility] ([facility]) Neutrophils # 8.9 10 1.5-8.5 Above high normal [facility] ([facility]) Lymph # 1.4 10 1.5-5.0 Below low normal [facility] ( [facility]) Desha # 0.9 10 0.0-0.8 Above high normal [facility] ([facility]) Eos # 0.1 10 0.0-0.5 Normal (applies to non-numeric resul ts) [facility] ([facility]) Baso # 0.1 10 0.0-0.2 Normal (applies to non-numeric resul ts) [facility] ([facility]) ID Date Data Source [id number] 07/23/2019 06:41:00 AM EDT [facility] ([facility] Name Value Range Interpretation Code Description Data Dana rce(s) Supporting Document(s) Glucose, Fasting 97 mg/dL 70-100 Normal (applies to non-numeric results) [facility] ([facility] Creatinine For GFR 0.51 mg/dL 0.55-1.30 Below low normal [facility] ([facility] Blood Urea Nitrogen 10 mg/dL 7-18 Normal (applies to non-nume fiorella results) [facility] ([facility] Sodium Level 141 meq/L 136-145 Normal (applies to non-numeric res ults) [facility] ([facility] Glomerular Filtration Rate Laboratory test result Normal (applies to non- numeric results) [facility] ([facility] ) <content>Units are mL/min/1.73 m2</content>
<content></content>
<content>Chronic Kidney Disease Staging per NKF:</content>
<content></content>
<content>Stage I & II GFR >=60 Normal to Mildly Decreased</content>
<content>Stage III GFR 30- 59 Moderately Decreased</content>
<content>Stage IV GFR 15-29 Severely Decreased</content>
<content>Stage V GFR <15 Very Little GFR Left</content>
<content>ESRD GFR <15 on SECURITY CLERK</content>
<content></content> Potassium Serum 3.5 meq/L 3.5-5.1 Normal (applies to non-numeric results) [facility] ([facility] Chloride Level 109 meq/L 98-107 Above high normal [facility] ([facility] Carbon Dioxide Level 28 meq/L 21-32 Normal (applies to non-num thu results) [facility] ([facility] Anion Gap 4 meq/L 8-16 Below low normal [facility] ( [facility] Calcium Level 7.7 mg/dL 8.8-10.2 Below low normal [facility] ([facility] Alt/SGPT 18 U/L 12-78 Normal (applies to non-numeric resul ts) [facility] ([facility] Alkaline Phosphatase 85 U/L 45-117 Normal (applies to non-num thu results) [facility] ([facility] Ast/Sgot 14 U/L 7-37 Normal (applies to non-numeric resul ts) [facility] ([facility] Total Protein 5.2 GM/DL 6.4-8.2 Below low normal [facility] ([facility] Bilirubin,Total 0.4 mg/dL 0.2-1.0 Normal (applies to non-numeric results) [facility] ([facility] Albumin/Globulin Ratio 0.86 1.00-1.93 Below low normal [facility] ([facility] Albumin 2.4 GM/DL 3.2-5.2 Below low normal [facility] ( [facility] ID Date Data Source [id number] 07/23/2019 06:41:00 AM EDT [facility] ([facility] Name Value Range Interpretation Code Description Data Dana rce(s) Supporting Document(s) Red Blood Count 3.51 10 4.00-5.40 Below low normal [facility] ([facility] White Blood Count 13.2 10 4.0-10.0 Above high normal [facility] ([facility] Hematocrit 35.2 % 36.0-47.0 Below low normal [facility] ( [facility] Hemoglobin 11.5 g/dL 12.0-15.5 Below low normal [facility] ( [facility] Mean Corpuscular Volume 100.3 fl 80.0-96.0 Above high normal [facility] ([facility] Mean Corpuscular HGB Conc 32.7 g/dL 32.0-36.5 Normal (applies to non-numeric results) [facility] ([facility] ) Mean Corpuscular Hemoglobin 32.8 pg 27.0-33.0 Norm al (applies to non-numeric results) [facility] ([facility] ) Red Cell Distribution Width 13.5 % 11.5-14.5 Norm al (applies to non-numeric results) [facility] ([facility] ) Platelet Count, Automated 248 10 150-450 Normal (applies to non-numeric results) [facility] ([facility] ) Neutrophils % 81.3 % 36.0-66.0 Above high normal [facility] ([facility] Desha % 7.9 % 0.0-5.0 Above high normal [facility] ([facility] Lymph % 10.0 % 24.0-44.0 Below low normal [facility] ( [facility] Baso % 0.2 % 0.0-1.0 Normal (applies to non-numeric resul ts) [facility] ([facility] Eos % 0.2 % 0.0-3.0 Normal (applies to non-numeric resul ts) [facility] ([facility] Neutrophils # 10.8 10 1.5-8.5 Above high normal [facility] ([facility] Nucleated Red Blood Cell % 0.0 % 0-0 Normal (applies to n on-numeric results) [facility] ([facility] Immature Granulocyte % 0.4 % 0-3.0 Normal (applies to non-n umeric results) [facility] ([facility] Desha # 1.0 10 0.0-0.8 Above high normal [facility] ([facility] Lymph # 1.3 10 1.5-5.0 Below low normal [facility] ( [facility] Eos # 0.0 10 0.0-0.5 Normal (applies to non-numeric resul ts) [facility] ([facility] Baso # 0.0 10 0.0-0.2 Normal (applies to non-numeric resul ts) [facility] ([facility] ID Date Data Source [id number] 07/23/2019 06:41:00 AM EDT [facility] ([facility], ) Name Value Range Interpretation Code Description Data Dana rce(s) Supporting Document(s) Glucose, Fasting 97 mg/dL 70-100 Normal (applies to non-numeric results) [facility] ([facility], ) Creatinine For GFR 0.51 mg/dL 0.55-1.30 Below low normal [facility] ([facility]) Glomerular Filtration Rate Laboratory test result Normal (applies to non- numeric results) [facility] ([facility]) <content>Units are mL/min/1.73 m2</content>
<content></content>
<content>Chronic Kidney Disease Staging per NKF:</content>
<content></content>
<content>Stage I & II GFR >=60 Normal to Mildly Decreased</content>
<content>Stage III GFR 30- 59 Moderately Decreased</content>
<content>Stage IV GFR 15-29 Severely Decreased</content>
<content>Stage V GFR <15 Very Little GFR Left</content>
<content>ESRD GFR <15 on SECURITY CLERK</content>
<content></content> Blood Urea Nitrogen 10 mg/dL 7-18 Normal (applies to non-nume fiorella results) [facility] ([facility], ) Sodium Level 141 meq/L 136-145 Normal (applies to non-numeric res ults) [facility] ([facility]) Potassium Serum 3.5 meq/L 3.5-5.1 Normal (applies to non-numeric results) [facility] ([facility]) Chloride Level 109 meq/L 98-107 Above high normal [facility] ([facility]) Carbon Dioxide Level 28 meq/L 21-32 Normal (applies to non-num thu results) [facility] ([facility]) Anion Gap 4 meq/L 8-16 Below low normal [facility] ( [facility]) Calcium Level 7.7 mg/dL 8.8-10.2 Below low normal [facility] ([facility]) Alkaline Phosphatase 85 U/L 45-117 Normal (applies to non-num thu results) [facility] ([facility]) Ast/Sgot 14 U/L 7-37 Normal (applies to non-numeric resul ts) [facility] ([facility]) Alt/SGPT 18 U/L 12-78 Normal (applies to non-numeric resul ts) [facility] Total Protein 5.2 GM/DL 6.4-8.2 Below low normal [facility] ([facility]) Bilirubin,Total 0.4 mg/dL 0.2-1.0 Normal (applies to non-numeric results) [facility] Albumin 2.4 GM/DL 3.2-5.2 Below low normal [facility] Albumin/Globulin Ratio 0.86 1.00-1.93 Below low normal [facility] ([facility]) ID Date Data Source [id number] 07/23/2019 06:41:00 AM EDT [facility] ([facility]) Name Value Range Interpretation Code Description Data Dana rce(s) Supporting Document(s) White Blood Count 13.2 10 4.0-10.0 Above high normal [facility] ([facility]) Red Blood Count 3.51 10 4.00-5.40 Below low normal [facility] ([facility]) Hemoglobin 11.5 g/dL 12.0-15.5 Below low normal [facility] ( [facility]) Hematocrit 35.2 % 36.0-47.0 Below low normal [facility] ( [facility]) Mean Corpuscular Hemoglobin 32.8 pg 27.0-33.0 Norm al (applies to non-numeric results) [facility] ([facility]) Mean Corpuscular Volume 100.3 fl 80.0-96.0 Above high normal [facility] ([facility]) Mean Corpuscular HGB Conc 32.7 g/dL 32.0-36.5 Normal (applies to non-numeric results) [facility] ([facility]) Red Cell Distribution Width 13.5 % 11.5-14.5 Norm al (applies to non-numeric results) [facility] ([facility]) Neutrophils % 81.3 % 36.0-66.0 Above high normal [facility] ([facility]) Platelet Count, Automated 248 10 150-450 Normal (applies to non-numeric results) [facility] ([facility]) Lymph % 10.0 % 24.0-44.0 Below low normal [facility] ( [facility]) Desha % 7.9 % 0.0-5.0 Above high normal [facility] ([facility]) Eos % 0.2 % 0.0-3.0 Normal (applies to non-numeric resul ts) [facility] ([facility]) Baso % 0.2 % 0.0-1.0 Normal (applies to non-numeric resul ts) [facility] ([facility]) Immature Granulocyte % 0.4 % 0-3.0 Normal (applies to non-n umeric results) [facility] ([facility]) Neutrophils # 10.8 10 1.5-8.5 Above high normal [facility] ([facility]) Nucleated Red Blood Cell % 0.0 % 0-0 Normal (applies to n on-numeric results) [facility] ([facility]) Lymph # 1.3 10 1.5-5.0 Below low normal [facility] ( [facility]) Desha # 1.0 10 0.0-0.8 Above high normal [facility] ([facility]) Eos # 0.0 10 0.0-0.5 Normal (applies to non-numeric resul ts) [facility] ([facility]) Baso # 0.0 10 0.0-0.2 Normal (applies to non-numeric resul ts) [facility] ([facility]) ID Date Data Source [id number] 07/22/2019 07:08:00 AM EDT [facility] ([facility]) Name Value Range Interpretation Code Description Data Dana rce(s) Supporting Document(s) Surgical pathology study Laboratory test result [facility] ([facility]) FINAL DIAGNOSIS Appendix, appendectomy: Suppurative appendicitis with focal perforation and periappendiceal abscess formation. 07/23/2019 - 1142 CLINICAL DIAGNOSIS Appendicitis 07/22/2019 - 1355 GROSS DIAGNOSIS Received in formalin labeled "appendix" is an appendectomy specimen with adherent nodular adipose tissue measuring approximately 6 x 2.7 x 2.5 cm. Focal fibrinopurulent exudates are noted. Focal rupture and periappendiceal abscess is noted at the tip area. Represented in one. -YZ 07/22/2019 - 1355 Signed Tanja Regalado M.D. 07/23/2019 1204 ID Date Data Source [id number] 07/22/2019 04:34:00 AM EDT [facility] ([facility] Name Value Range Interpretation Code Description Data Dana rce(s) Supporting Document(s) Glucose [Mass/volume] in Capillary blood by Glucometer 97 mg/dL 83-110 Normal (applies to non-numeric results) [facility] ([facility] ID Date Data Source [id number] 07/22/2019 04:34:00 AM EDT [facility] ([facility]) Name Value Range Interpretation Code Description Data Dana rce(s) Supporting Document(s) Glucose [Mass/volume] in Capillary blood by Glucometer 97 mg/dL 83-110 Normal (applies to non-numeric results) [facility] ID Date Data Source [id number] 07/21/2019 08:23:00 PM EDT [facility] ([facility] Name Value Range Interpretation Code Description Data Dana rce(s) Supporting Document(s) Reflex Urine Culture Laboratory test result Norm al (applies to non-numeric results) [facility] ([facility] FULL REPORT IN LAB NOTES (eCW and [facility] ). NO GROWTH CLINICAL SIGNIFICANCE 1 ORGANISM ID Date Data Source [id number] 07/21/2019 08:23:00 PM EDT [facility] ([facility] Name Value Range Interpretation Code Description Data Dana rce(s) Supporting Document(s) Appearance, Urine RFX Laboratory test result Nor mal (applies to non-numeric results) [facility] ([facility] ) Specific [place] Ur Auto RFX 1.024 1.002-1.035 Nor mal (applies to non-numeric results) [facility] ([facility] ) PH,Urine RFX 5.0 units 5.0-9.0 Normal (applies to non-numeric res ults) [facility] ([facility] Color, Urine RFX Laboratory test result Normal ( applies to non-numeric results) [facility] ([facility] ) Ketone, Urine Auto RFX Laboratory test result No rmal (applies to non-numeric results) [facility] ([facility] ) Glucose, Urine (Ua) Auto RFX Laboratory test result Normal (applies to non- numeric results) [facility] ([facility] ) Protein, Urine Auto RFX Laboratory test result N ormal (applies to non-numeric results) [facility] ([facility] ) Bilirubin, Urine Auto RFX Laboratory test result Normal (applies to non- numeric results) [facility] ([facility] ) Urobilinogen, Urine Auto RFX 0.2 mg/dL 0.0-2.0 Nor mal (applies to non-numeric results) [facility] ([facility] ) Nitrite, Urine Auto RFX Laboratory test result N ormal (applies to non-numeric results) [facility] ([facility] ) Blood, Urine Blood RFX Laboratory test result No rmal (applies to non-numeric results) [facility] ([facility] ) Leukocyte Esterase Ur Auto RFX Laboratory test result Abov e high normal [facility] ([facility] Bacteria, Urine Auto RFX Laboratory test result Normal (applies to non-numeric results) [facility] ([facility] ) RBC, Urine Auto RFX 1 /HPF 0-3 Normal (applies to non-nume fiorella results) [facility] ([facility] WBC, Urine Auto RFX 14 /HPF 0-3 Above high normal [facility] ([facility] Squam Epithelial Cell Ur Aurfx 0 /HPF 0-6 N ormal (applies to non-numeric results) [facility] ([facility] ) Mucus, Urine RFX Laboratory test result Normal ( applies to non-numeric results) [facility] ([facility] ) Hyaline Cast, Urine Auto RFX 0 /LPF 0-1 Normal (appl ies to non-numeric results) [facility] ([facility] ID Date Data Source [id number] 07/21/2019 08:23:00 PM EDT [facility] ([facility], ) Name Value Range Interpretation Code Description Data Dana rce(s) Supporting Document(s) Reflex Urine Culture Laboratory test result Norm al (applies to non-numeric results) [facility] ([facility], ) FULL REPORT IN LAB NOTES (eCW and [facility] ). NO GROWTH CLINICAL SIGNIFICANCE 1 ORGANISM ID Date Data Source [id number] 07/21/2019 08:03:00 PM EDT [facility] ([facility] Name Value Range Interpretation Code Description Data Dana rce(s) Supporting Document(s) Lipoprotein lipase [Enzymatic activity/volume] in Serum or Plasm a 88 U/L 73-393 Normal (applies to non-numeric results) [facility] ([facility] <content>note:<nlbl:[email or web address]> </content>
<content></content> ID Date Data Source [id number] 07/21/2019 08:03:00 PM EDT [facility] ([facility] Name Value Range Interpretation Code Description Data Dana rce(s) Supporting Document(s) Glucose, Fasting 110 mg/dL 70-100 Above high normal [facility] ([facility] Creatinine For GFR 0.62 mg/dL 0.55-1.30 Normal (applies to non -numeric results) [facility] Glomerular Filtration Rate Laboratory test result Normal (applies to non- numeric results) [facility] ([facility] ) <content>Units are mL/min/1.73 m2</content>
<content></content>
<content>Chronic Kidney Disease Staging per NKF:</content>
<content></content>
<content>Stage I & II GFR >=60 Normal to Mildly Decreased</content>
<content>Stage III GFR 30-59 Moderately Decreased</content>
<content>Stage IV GFR 15-29 Severely Decreased</content>
<content>Stage V GFR <15 Very Little GFR Left</content>
<content>ESRD GFR <15 on SECURITY CLERK</content>
<content></content> Blood Urea Nitrogen 18 mg/dL 7-18 Normal (applies to non-nume fiorella results) [facility] ([facility] Sodium Level 141 meq/L 136-145 Normal (applies to non-numeric res ults) [facility] ([facility] Chloride Level 109 meq/L 98-107 Above high normal [facility] ([facility] Potassium Serum 3.8 meq/L 3.5-5.1 Normal (applies to non-numeric results) [facility] ([facility] Calcium Level 8.5 mg/dL 8.8-10.2 Below low normal [facility] ([facility] Carbon Dioxide Level 30 meq/L 21-32 Normal (applies to non-num thu results) [facility] ([facility] Anion Gap 2 meq/L 8-16 Below low normal [facility] ID Date Data Source [id number] 07/21/2019 08:03:00 PM EDT [facility] ([facility] Name Value Range Interpretation Code Description Data Dana rce(s) Supporting Document(s) Ast/Sgot 12 U/L 7-37 Normal (applies to non-numeric resul ts) [facility] ([facility] Alkaline Phosphatase 92 U/L 45-117 Normal (applies to non-num thu results) [facility] ([facility] Alt/SGPT 16 U/L 12-78 Normal (applies to non-numeric resul ts) [facility] ([facility] Total Protein 5.7 GM/DL 6.4-8.2 Below low normal [facility] ([facility] Bilirubin,Total 0.3 mg/dL 0.2-1.0 Normal (applies to non-numeric results) [facility] ([facility] Bilirubin,Direct Laboratory test result 0.0-0.2 Normal ( applies to non-numeric results) [facility] Albumin 2.8 GM/DL 3.2-5.2 Below low normal [facility] ( [facility] Albumin/Globulin Ratio 0.97 1.00-1.93 Below low normal [facility] ([facility] ID Date Data Source [id number] 07/21/2019 08:03:00 PM EDT [facility] ([facility] Name Value Range Interpretation Code Description Data Dana rce(s) Supporting Document(s) Red Blood Count 3.73 10 4.00-5.40 Below low normal [facility] ([facility] White Blood Count 12.5 10 4.0-10.0 Above high normal [facility] ([facility] Mean Corpuscular Volume 98.9 fl 80.0-96.0 Above high normal [facility] ([facility] Hemoglobin 12.0 g/dL 12.0-15.5 Normal (applies to non-numeric resul ts) [facility] ([facility] Hematocrit 36.9 % 36.0-47.0 Normal (applies to non-numeric resul ts) [facility] ([facility] Red Cell Distribution Width 13.3 % 11.5-14.5 Norm al (applies to non-numeric results) [facility] ([facility] [facility] ) Mean Corpuscular Hemoglobin 32.2 pg 27.0-33.0 Norm al (applies to non-numeric results) [facility] ([facility] Mean Corpuscular HGB Conc 32.5 g/dL 32.0-36.5 Normal (applies to non-numeric results) [facility] ([facility] ) Platelet Count, Automated 283 10 150-450 Normal (applies to non-numeric results) [facility] ([facility] ) Neutrophils % 78.6 % 36.0-66.0 Above high normal MEDE NT ([facility] Desha % 10.0 % 0.0-5.0 Above high normal [facility] ([facility] Lymph % 9.4 % 24.0-44.0 Below low normal [facility] ( [facility] Eos % 1.0 % 0.0-3.0 Normal (applies to non-numeric resul ts) [facility] ([facility] Immature Granulocyte % 0.4 % 0-3.0 Normal (applies to non-n umeric results) [facility] ([facility] Nucleated Red Blood Cell % 0.0 % 0-0 Normal (applies to n on-numeric results) [facility] ([facility] Baso % 0.6 % 0.0-1.0 Normal (applies to non-numeric resul ts) [facility] ([facility] Lymph # 1.2 10 1.5-5.0 Below low normal [facility] ( [facility] Neutrophils # 9.9 10 1.5-8.5 Above high normal MEDE NT ([facility] Desha # 1.3 10 0.0-0.8 Above high normal [facility] ([facility] Eos # 0.1 10 0.0-0.5 Normal (applies to non-numeric resul ts) [facility] ([facility] Baso # 0.1 10 0.0-0.2 Normal (applies to non-numeric resul ts) [facility] ([facility] ID Date Data Source [id number] 07/21/2019 11:38:00 AM EDT [facility] ([facility] Name Value Range Interpretation Code Description Data Dana rce(s) Supporting Document(s) Color Urine Laboratory test result M EDENT ([facility] Appearance of Urine Laboratory test result [facility] ([facility] PH Urine 6.5 5.0-8.0 [facility] ([facility] Specific [place] 1.020 1.00-1.03 [facility] ([facility] Glucose Urine Laboratory test result [facility] ([facility] Bilirubin.total [Presence] in Urine by Test strip Laboratory test res ult [facility] ([facility] Blood Urine Laboratory test result M EDENT ([facility] Ketones Laboratory test result [facility] ([facility] Urobilinogen 0.2 EU/dl 0.2-1.0 [facility] ([facility] Nitrite Laboratory test result [facility] ([facility] Protein Urine Laboratory test result [facility] ([facility] Leukocytes Laboratory test result Above high normal [facility] ([facility] ID Date Data Source [id number] 07/21/2019 11:16:00 AM EDT [facility] ([facility] Name Value Range Interpretation Code Description Data Dana rce(s) Supporting Document(s) Glu 130 mg/dL 70-110 Above high normal [facility] ([facility] NORMAL RANGES Age WBC RBC HGB HCT [...] HCT IS 5% LESS SOURCE FOR DATA: TONY DYN 1800 OPERATION MANUAL( AUTOMATED BLOOD COUNTS [...] Normal 80 and above >32 mL/min Normal BUN 16 mg/dL 8 [facility] NORMAL RANGES Age WBC RBC HGB HCT [...] HCT IS 5% LESS SOURCE FOR DATA: Instagram 1800 OPERATION MANUAL( AUTOMATED BLOOD COUNTS AND [...] Normal 80 and above >32 mL/min Normal Creat 0.7 mg/dL 0.5-1.0 [facility] ([facility] NORMAL RANGES Age WBC RBC HGB HCT [...] HCT IS 5% LESS SOURCE FOR DATA: Instagram 1800 OPERATION MANUAL( AUTOMATED BLOOD COUNTS AND [...] Normal 80 and above >32 mL/min Normal BUN/Creatinine Ratio 22.8 CALC [facility] ([facility] NORMAL RANGES Age WBC RBC HGB HCT [...] HCT IS 5% LESS SOURCE FOR DATA: Instagram 1800 OPERATION MANUAL( AUTOMATED BLOOD COUNTS AND [...] Normal 80 and above >32 mL/min Normal K 3.9 mmol/L 3.5-5.1 [facility] ([facility] NORMAL RANGES Age WBC RBC HGB HCT [...] HCT IS 5% LESS SOURCE FOR DATA: Instagram 1800 OPERATION MANUAL( AUTOMATED BLOOD COUNTS AND [...] Normal 80 and above >32 mL/min Normal Na 138 mmol/L 136-145 [facility] NORMAL RANGES Age WBC RBC HGB HCT [...] HCT IS 5% LESS SOURCE FOR DATA: Instagram 1800 OPERATION MANUAL( AUTOMATED BLOOD COUNTS AND [...] Normal 80 and above >32 mL/min Normal CL 102.6 mmol/L 98.0-107.0 [facility] ([facility] NORMAL RANGES Age WBC RBC HGB HCT [...] HCT IS 5% LESS SOURCE FOR DATA: Instagram 1800 OPERATION MANUAL( AUTOMATED BLOOD COUNTS AND [...] Normal 80 and above >32 mL/min Normal Co2 23.1 mmol/L 22.0-29.0 [facility] ([facility] NORMAL RANGES Age WBC RBC HGB HCT [...] HCT IS 5% LESS SOURCE FOR DATA: Instagram 1800 OPERATION MANUAL( AUTOMATED BLOOD COUNTS AND [...] Normal 80 and above >32 mL/min Normal CA 9.0 mg/dL 8.6-10.2 [facility] NORMAL RANGES Age WBC RBC HGB HCT [...] HCT IS 5% LESS SOURCE FOR DATA: Instagram 1800 OPERATION MANUAL( AUTOMATED BLOOD COUNTS AND [...] Normal 80 and above >32 mL/min Normal TP 5.8 g/dL 6.6-8.7 Below low normal [facility] ( [facility] NORMAL RANGES Age WBC RBC HGB HCT [...] HCT IS 5% LESS SOURCE FOR DATA: Instagram 1800 OPERATION MANUAL( AUTOMATED BLOOD COUNTS AND [...] Normal 80 and above >32 mL/min Normal Alb 3.8 g/dL 3.4-4.8 [facility] NORMAL RANGES Age WBC RBC HGB HCT MCV PLT Adult M 4.1-10.9 4.20-6.30 12.0-18.0 37.0-51.0 80-97 140-440 Adult F 4.1-10.9 4.04-5.48 12.0-18.0 37.0-51.0 80- 140-440 0 -1 Yr 5.0-20.0 3.9-5.9 15-18 [...] HCT IS 5% LESS SOURCE FOR DATA: TONY DYN 1800 OPERATION MANUAL( AUTOMATED BLOOD COUNTS [...] Normal 80 and above >32 mL/min Normal A/G Ratio 1.8 [facility] NORMAL RANGES Age WBC RBC HGB HCT [...] HCT IS 5% LESS SOURCE FOR DATA: Instagram 1800 OPERATION MANUAL( AUTOMATED BLOOD COUNTS AND [...] Normal 80 and above >32 mL/min Normal Globulin 2.1 CALC [facility] ([facility] NORMAL RANGES Age WBC RBC HGB HCT [...] HCT IS 5% LESS SOURCE FOR DATA: Instagram 1800 OPERATION MANUAL( AUTOMATED BLOOD COUNTS AND [...] Normal 80 and above >32 mL/min Normal Alp 104.5 U/L 35-129 [facility] NORMAL RANGES Age WBC RBC HGB HCT [...] HCT IS 5% LESS SOURCE FOR DATA: Instagram 1800 OPERATION MANUAL( AUTOMATED BLOOD COUNTS AND [...] Normal 80 and above >32 mL/min Normal Alt (SGPT) 10 U/L 0-41 [facility] ([facility] NORMAL RANGES Age WBC RBC HGB HCT [...] HCT IS 5% LESS SOURCE FOR DATA: Instagram 1800 OPERATION MANUAL( AUTOMATED BLOOD COUNTS AND [...] Normal 80 and above >32 mL/min Normal Ast (Sgot) 14 U/L 0-40 [facility] NORMAL RANGES Age WBC RBC HGB HCT [...] HCT IS 5% LESS SOURCE FOR DATA: Instagram 1800 OPERATION MANUAL( AUTOMATED BLOOD COUNTS AND [...] Normal 80 and above >32 mL/min Normal Tbili 0.28 mg/dL 0.0-1.2 [facility] NORMAL RANGES Age WBC RBC HGB HCT [...] HCT IS 5% LESS SOURCE FOR DATA: Instagram 1800 OPERATION MANUAL( AUTOMATED BLOOD COUNTS AND [...] Normal 80 and above >32 mL/min Normal Osmolality-Calculated 278.5 CALC [facility] ([facility] NORMAL RANGES Age WBC RBC HGB HCT [...] HCT IS 5% LESS SOURCE FOR DATA: Instagram 1800 OPERATION MANUAL( AUTOMATED BLOOD COUNTS AND [...] Normal 80 and above >32 mL/min Normal eGFR 92 # MARY ( [facility] CKD-EPI Anion Gap 16 mmol/L [facility] ([facility] NORMAL RANGES Age WBC RBC HGB HCT [...] HCT IS 5% LESS SOURCE FOR DATA: Instagram 1800 OPERATION MANUAL( AUTOMATED BLOOD COUNTS AND [...] Normal 80 and above >32 mL/min Normal eGFR Non-Afr. [place] 80 # [facility] ([facility] CKD-EPI ID Date Data Source [id number] 07/21/2019 11:16:00 AM EDT MARY ([facility] Name Value Range Interpretation Code Description Data Dana rce(s) Supporting Document(s) WBC 9.6 10E3/uL 4.1-10.9 [facility] ([facility] NORMAL RANGES Age WBC RBC HGB HCT MCV PLT Adult M 4.1-10.9 4.20-6.30 12.0-18.0 37.0-51.0 80-97 140-440 Adult F 4.1-10.9 4.04-5.48 12.0-18.0 37.0-51.0 80 140-440 0 -1 Yr 5.0-20.0 3.9-5.9 15-18 [...] HCT IS 5% LESS SOURCE FOR DATA: Instagram 1800 OPERATION MANUAL( AUTOMATED BLOOD COUNTS AND [...] Normal 80 and above >32 mL/min Normal HGB 13.8 g/dL 12.0-18.0 [facility] NORMAL RANGES Age WBC RBC HGB HCT [...] HCT IS 5% LESS SOURCE FOR DATA: Instagram 1800 OPERATION MANUAL( AUTOMATED BLOOD COUNTS AND [...] Normal 80 and above >32 mL/min Normal RBC 4.23 10E6/uL 4.20-6.30 [facility] ([facility] NORMAL RANGES Age WBC RBC HGB HCT [...] HCT IS 5% LESS SOURCE FOR DATA: Instagram 1800 OPERATION MANUAL( AUTOMATED BLOOD COUNTS AND [...] Normal 80 and above >32 mL/min Normal HCT 41.7 % 37.0-51.0 [facility] NORMAL RANGES Age WBC RBC HGB HCT [...] HCT IS 5% LESS SOURCE FOR DATA: Instagram 1800 OPERATION MANUAL( AUTOMATED BLOOD COUNTS AND [...] Normal 80 and above >32 mL/min Normal MCV 98.6 fL 80.0-97.0 Above high normal [facility] ([facility] NORMAL RANGES Age WBC RBC HGB HCT [...] HCT IS 5% LESS SOURCE FOR DATA: Instagram 1800 OPERATION MANUAL( AUTOMATED BLOOD COUNTS AND [...] Normal 80 and above >32 mL/min Normal MCH 32.6 pg 26.0-32.0 Above high normal [facility] NORMAL RANGES Age WBC RBC HGB HCT [...] HCT IS 5% LESS SOURCE FOR DATA: Instagram 1800 OPERATION MANUAL( AUTOMATED BLOOD COUNTS AND [...] Normal 80 and above >32 mL/min Normal MCHC 33.1 g/dL 31.0-36.0 [facility] ([facility] NORMAL RANGES Age WBC RBC HGB HCT [...] HCT IS 5% LESS SOURCE FOR DATA: Instagram 1800 OPERATION MANUAL( AUTOMATED BLOOD COUNTS AND [...] Normal 80 and above >32 mL/min Normal RDW-CV 13.7 % 11.5-14.5 [facility] NORMAL RANGES Age WBC RBC HGB HCT [...] HCT IS 5% LESS SOURCE FOR DATA: Instagram 1800 OPERATION MANUAL( AUTOMATED BLOOD COUNTS AND [...] Normal 80 and above >32 mL/min Normal PLT 316 10E3/uL 140-440 [facility] ([facility] NORMAL RANGES Age WBC RBC HGB HCT [...] HCT IS 5% LESS SOURCE FOR DATA: TONY DYN 1800 OPERATION MANUAL( AUTOMATED BLOOD COUNTS [...] Normal 80 and above >32 mL/min Normal Lym% 12.1 % 10.0-58.5 [facility] NORMAL RANGES Age WBC RBC HGB HCT [...] HCT IS 5% LESS SOURCE FOR DATA: Instagram 1800 OPERATION MANUAL( AUTOMATED BLOOD COUNTS AND [...] Normal 80 and above >32 mL/min Normal Neut% 81.7 % 37.0-92.0 [facility] ([facility] NORMAL RANGES Age WBC RBC HGB HCT [...] HCT IS 5% LESS SOURCE FOR DATA: Instagram 1800 OPERATION MANUAL( AUTOMATED BLOOD COUNTS AND [...] Normal 80 and above >32 mL/min Normal MXD% 6.2 % 0.1-24.0 [facility] ([facility] NORMAL RANGES Age WBC RBC HGB HCT [...] HCT IS 5% LESS SOURCE FOR DATA: Instagram 1800 OPERATION MANUAL( AUTOMATED BLOOD COUNTS AND [...] Normal 80 and above >32 mL/min Normal Neut# 7.8 % 2.0-7.8 [facility] ([facility] NORMAL RANGES Age WBC RBC HGB HCT [...] HCT IS 5% LESS SOURCE FOR DATA: Instagram 1800 OPERATION MANUAL( AUTOMATED BLOOD COUNTS AND [...] Normal 80 and above >32 mL/min Normal Lym# 1.2 10E3/uL 0.6-4.1 [facility] NORMAL RANGES Age WBC RBC HGB HCT [...] HCT IS 5% LESS SOURCE FOR DATA: Instagram 1800 OPERATION MANUAL( AUTOMATED BLOOD COUNTS AND [...] Normal 80 and above >32 mL/min Normal MXD# 0.6 10E3/uL 0.0-1.8 [facility] NORMAL RANGES Age WBC RBC HGB HCT [...] HCT IS 5% LESS SOURCE FOR DATA: Instagram 1800 OPERATION MANUAL( AUTOMATED BLOOD COUNTS AND [...] Normal 80 and above >32 mL/min Normal MPV 10.7 fL 9.0-13.0 [facility] NORMAL RANGES Age WBC RBC HGB HCT [...] HCT IS 5% LESS SOURCE FOR DATA: Instagram 1800 OPERATION MANUAL( AUTOMATED BLOOD COUNTS AND [...] Normal 80 and above >32 mL/min Normal ID Date Data Source [id number] 06/17/2019 12:00:00 AM EDT [facility]i Fish DO Patient Name: FABIOLA JAMES [facility] Date of : [address], [place] [address] Date of Exam: 06/17/2019PH#: Fax: [phone] EXAM: FOOT COMPLETE LEFT (MIN 3 VIEWS) X-RAYCLINICAL INFORMATION: Pain.Four views.There are degenerative changes seen throughout the foot. The bones aredemineralized. 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 There is no evidence of anacute fracture.IMPRESSION:Chronic changes.ELMO Ahuja/Kennedi you for referring ROWAN JAMES to our office. Electronically Signed - MIRNA REMY DO 06/18/19 13:01 Name Value Range Interpretation Code Description Data Dana rce(s) Supporting Document(s) ID Date Data Source [id number] 06/17/2019 12:00:00 AM EDT [facility] Fish DO Patient Name: FABIOLA JAMES [facility] Date of : [address], [place] [address] Date of Exam: 06/17/2019PH#: Fax: [phone] EXAM: ANKLE COMPLETE LEFT (MIN 3 VIEWS) X-RAYCLINICAL INFORMATION: Persistent pain after trauma three weeks ago.Four views.There are no prior left ankle xrays for comparison.The bones are demineralized. Plantar and retrocalcaneal heel spurs arepresent. There is no evidence of an acute fracture. The mortise isintact.IMPRESSION:Chronic changesELMO Ahuja/Kennedi you for referring ROWAN JAMES to our office. Electronically Signed - MIRNA REMY DO 06/18/19 13:01 Name Value Range Interpretation Code Description Data Dana rce(s) Supporting Document(s) ID Date Data Source [id number] 05/26/2019 12:00:00 AM EST [facility] Nagi Fish DO Patient Name: FABIOLA JAMES [facility] Date of : [address], [place] [address] Date of Exam: 05/26/2019PH#: Fax: [phone] EXAM: US HEAD AND NECK SOFT TISSUECLINICAL INFORMATION: Thyroid nodule seen on ultrasound carotid 05/04/19.Realtime sonographic evaluation of the thyroid is performed.Both lobes of the thyroid are normal in size, right measuring 2.8 x 0.7 x1.1 cm and left 2.8 x 1.6 x 1.5 cm. There is a solid heterogeneous nodulein the left lobe which measures 2.1 x 1.5 x 1.4 cm. No other cystic orsolid nodule is seen bilaterally.IMPRESSION:Solid nodule left lobe of the thyroid 2.1 cm in diameter. According toTI-Rads criteria, ultrasound followup is recommended in 6 months.Accredited by the [employer] in General Ultrasound.CHANCE Ken/Kennedi you for referring ROWAN JAMES to our office. Electronically Signed - BRIAN SOMMER MD 05/26/19 15:49 Name Value Range Interpretation Code Description Data Dana rce(s) Supporting Document(s) ID Date Data Source [id number] 05/17/2019 11:48:00 AM EST [facility] ([facility]) Name Value Range Interpretation Code Description Data Dana rce(s) Supporting Document(s) Appearance, Urine RFX Laboratory test result [facility] Color, Urine RFX Laboratory test result [facility] ([facility]) PH,Urine RFX 8.0 units 5.0-9.0 [facility]) Specific [place] Ur Auto RFX 1.028 1.002-1.035 [facility]) Protein, Urine Auto RFX Laboratory test result [facility]) Urobilinogen, Urine Auto RFX 0.2 mg/dL 0.0-2.0 [facility] ([facility]) Glucose, Urine (Ua) Auto RFX Laboratory test result [facility]) Ketone, Urine Auto RFX Laboratory test result [facility] ([facility]) Bilirubin, Urine Auto RFX Laboratory test result [facility] ([facility]) Leukocyte Esterase Ur Auto RFX Laboratory test result [facility] ([facility] Nitrite, Urine Auto RFX Laboratory test result [facility] ([facility]) Bacteria, Urine Auto RFX Laboratory test result [facility] ([facility]) RBC, Urine Auto RFX 2 /HPF 0-3 [facility] ([facility] Blood, Urine Blood RFX Laboratory test result [facility] ([facility] WBC, Urine Auto RFX 0 /HPF 0-3 [facility] Hyaline Cast, Urine Auto RFX 0 /LPF 0-1 [facility] ([facility] Squam Epithelial Cell Ur Aurfx 0 /HPF 0-6 [facility] ([facility]) ID Date Data Source [id number] 05/17/2019 08:43:00 AM EST [facility] ([facility] Name Value Range Interpretation Code Description Data Dana rce(s) Supporting Document(s) Lipoprotein lipase [Enzymatic activity/volume] in Serum or P lasma 149 U/L 73-393 [facility] ([facility] <content>note:<nlbl:demographic_changed></content>
<content>note:<nlbl:demog raphic_changed></content>
<content></content> ID Date Data Source [id number] 05/17/2019 08:43:00 AM EST [facility] ([facility] Name Value Range Interpretation Code Description Data Dana rce(s) Supporting Document(s) Blood Urea Nitrogen 24 mg/dL 7-18 [facility] ([facility] Glucose, Fasting 92 mg/dL 70-100 [facility] ([facility]) Creatinine For GFR 0.72 mg/dL 0.55-1.30 [facility] ([facility]) Glomerular Filtration Rate Laboratory test result [facility] ([facility] <content>Units are mL/min/1.73 m2</content>
<content></content>
<content>Chronic Kidney Disease Staging per NKF:</content>
<content></content>
<content>Stage I & II GFR >=60 Normal to Mildly Decreased</content>
<content>Stage III GFR 30-59 Moderately Decreased</content>
<content>Stage IV GFR 15-29 Severely Decreased</content>
<content>Stage V GFR <15 Very Little GFR Left</content>
<content>ESRD GFR <15 on SECURITY CLERK</content>
<content></content> Sodium Level 142 meq/L 136-145 [facility] Carbon Dioxide Level 32 meq/L 21-32 [facility] Anion Gap 2 meq/L 8-16 [facility] Potassium Serum 4.9 meq/L 3.5-5.1 [facility] ([facility] Chloride Level 108 meq/L 98-107 [facility] Calcium Level 9.4 mg/dL 8.8-10.2 [facility] ([facility] ID Date Data Source [id number] 05/17/2019 08:43:00 AM EST [facility] ([facility] Name Value Range Interpretation Code Description Data Dana rce(s) Supporting Document(s) Ast/Sgot 18 U/L 7-37 [facility] ([facility] Alkaline Phosphatase 91 U/L 45-117 [facility] ( [facility] Alt/SGPT 37 U/L 12-78 [facility] ([facility] Total Protein 6.2 GM/DL 6.4-8.2 [facility] ([facility] Bilirubin,Direct Laboratory test result 0.0-0.2 [facility] ([facility]) Bilirubin,Total 0.2 mg/dL 0.2-1.0 [facility] ([facility]) Albumin/Globulin Ratio 1.07 1.00-1.93 ME [facility] ([facility]) Albumin 3.2 GM/DL 3.2-5.2 [facility] ([facility] ID Date Data Source [id number] 05/17/2019 08:43:00 AM EST [facility] ([facility] Name Value Range Interpretation Code Description Data Dana rce(s) Supporting Document(s) CPK Creatine Phosphokinase 56 U/L 26-192 [facility] ([facility]) CK-MB Value Mass 1.1 ng/mL [facility] ([facility]) MB/CK Relative Index 1.96 [facility] ([facility]) <content>DIAGNOSIS CRITERIA</content>
<content>MMB ng/ml Relative Index (RI)</content>
<content>NON-AMI < or = 5 N/A</content>
<content>SOMMER ZONE > 5 < or = 4</content>
<content>AMI > 5 > 4</content>
<content></content> Troponin I Laboratory test result [facility] ([facility]) <content>Troponin I Reference Interval f or Siemens [place] LOCI:</content>
<content></content>
<content>99th Percentile= 0.00-0.045 ng/ml</content>
<content></content>
<content>Risk Stratification:</content>
<content><= 0.10 ng/ml Decreased Risk for Adverse Clinical</content>
<content>Events.</content>
<content>0.10-1.50 ng/ml Increased Risk for Adverse Clinical</content>
<content>Events. Evaluation of additional</content>
<content>criterion and/or repeat testing in 2-6</content>
<content>hours is suggested to rule out myocardial</content>
<content>damage.</content>
<content>>= 1.50 ng/ml Indicative of Myocardial Injury.</content>
<content></content> ID Date Data Source [id number] 05/17/2019 08:43:00 AM EST [facility] ([facility]) Name Value Range Interpretation Code Description Data Dana rce(s) Supporting Document(s) White Blood Count 12.3 10 4.0-10.0 [facility] ([facility]) Red Blood Count 4.40 10 4.00-5.40 [facility] ([facility]) Hemoglobin 14.2 g/dL 12.0-15.5 [facility] ([facility]) Hematocrit 42.0 % 36.0-47.0 [facility] ([facility] Mean Corpuscular Volume 95.5 fl 80.0-96.0 M [facility] ([facility]) Mean Corpuscular HGB Conc 33.8 g/dL 32.0-36.5 [facility] ([facility]) Red Cell Distribution Width 13.0 % 11.5-14.5 [facility] ([facility]) Mean Corpuscular Hemoglobin 32.3 pg 27.0-33.0 [facility] ([facility]) Neutrophils % 75.9 % 36.0-66.0 [facility] ([facility] Lymph % 14.3 % 24.0-44.0 [facility] ([facility] Platelet Count, Automated 379 10 150-450 [facility] ([facility]) Desha % 7.5 % 0.0-5.0 [facility] ([facility] Eos % 1.1 % 0.0-3.0 [facility] ([facility] Baso % 0.4 % 0.0-1.0 [facility] ([facility] Nucleated Red Blood Cell % 0.0 % 0-0 [facility] ([facility]) Neutrophils # 9.3 10 1.5-8.5 [facility] ([facility] Immature Granulocyte % 0.8 % 0-3.0 [facility] ([facility] Lymph # 1.8 10 1.5-5.0 [facility] ([facility] Eos # 0.1 10 0.0-0.5 [facility] ([facility] Desha # 0.9 10 0.0-0.8 [facility] ([facility] Baso # 0.1 10 0.0-0.2 [facility] ([place] [facility] ID Date Data Source [id number] 05/17/2019 08:30:00 AM EST [facility] ([facility]) Name Value Range Interpretation Code Description Data Dana rce(s) Supporting Document(s) Gastrointestinal (GI) Panel Laboratory test result [facility] ([facility]) This Gastrointestinal PCR Panel detects the following bacteria, parasites and viruses: Campylobacter (jejuni, coli and upsaliensis), Clostridium difficile (toxin A/B), Plesiomonas shigelloides, Salmonella, Yersinia enterocolitica, Vibrio (parahaemolyticus, vulnificus and cholerae), Vibrio clolerae, Enteroaggregative E. coli (EAEC), Enteropathogenis E. coli (EPEC), Enterotoxigenic E. coli (ETEC) it/st, Shiga-like producing E. coli (STEC) stx1/stc2, E.coli O157, Shigella/Enteroinvasive E. coli (EIEC), Cryptosporidium, Cyclospora cayetanensis, Entamoeba histolytica, Giardia lamblia, Adenovirus F 40/41, Astrovirus, Norovirus GI/GII, Rotavirus A and Sapovirus (I, II, IV, V). NEGATIVE by MULTIPLEXED NUCLEIC ACID PCR ID Date Data Source [id number] 05/11/2019 04:11:00 AM EST [facility] ([facility] Name Value Range Interpretation Code Description Data Dana rce(s) Supporting Document(s) Laboratory test finding (navigational concept) 7.410 units 7 .350-7.450 Normal (applies to non-numeric results) [facility] Laboratory test finding (navigational concept) 38.4 MMHG 3 5.0-45.0 Normal (applies to non-numeric results) [facility] ([facility] Laboratory test finding (navigational concept) 59.0 MMHG 8 0-105 Below low normal [facility] ([facility] ) Laboratory test finding (navigational concept) 0.0 mmol/L Normal (applies to non-numeric results) [facility] ([facility]) Laboratory test finding (navigational concept) 25.0 mmol/L 2 3.0-27.0 Normal (applies to non-numeric results) [facility] Laboratory test finding (navigational concept) 24.3 mmol/L 2 2.0-26.0 Normal (applies to non-numeric results) [facility] ([facility] Laboratory test finding (navigational concept) 90 % 95-98 Below low normal [facility] ([facility] ID Date Data Source [id number] 05/11/2019 12:22:00 AM EST [facility] ([facility] Name Value Range Interpretation Code Description Data Dana rce(s) Supporting Document(s) Red Blood Count 4.27 10 4.00-5.40 Normal (applies to non-numeric results) [facility] ([facility] White Blood Count 5.9 10 4.0-10.0 Normal (applies to non-numeri c results) [facility] ([facility] Mean Corpuscular Volume 97.7 fl 80.0-96.0 Above high normal [facility] ([facility] Hematocrit 41.7 % 36.0-47.0 Normal (applies to non-numeric resul ts) [facility] ([facility] Hemoglobin 13.7 g/dL 12.0-15.5 Normal (applies to non-numeric resul ts) [facility] ([facility] Mean Corpuscular Hemoglobin 32.1 pg 27.0-33.0 Norm al (applies to non-numeric results) [facility] ([facility] ) Red Cell Distribution Width 13.2 % 11.5-14.5 Norm al (applies to non-numeric results) [facility] ([facility] ) Mean Corpuscular HGB Conc 32.9 g/dL 32.0-36.5 Normal (applies to non-numeric results) [facility] ([facility] ) Platelet Count, Automated 223 10 150-450 Normal (applies to non-numeric results) [facility] ([facility] ) Lymph % 14.1 % 24.0-44.0 Below low normal [facility] ( [facility] Desha % 8.8 % 0.0-5.0 Above high normal [facility] ([facility] Neutrophils % 76.2 % 36.0-66.0 Above high normal MEDE NT ([facility] Immature Granulocyte % 0.5 % 0-3.0 Normal (applies to non-n umeric results) [facility] ([facility] Baso % 0.2 % 0.0-1.0 Normal (applies to non-numeric resul ts) [facility] ([facility] Eos % 0.2 % 0.0-3.0 Normal (applies to non-numeric resul ts) [facility] ([facility] Neutrophils # 4.5 10 1.5-8.5 Normal (applies to non-numeric re sults) [facility] ([facility] Nucleated Red Blood Cell % 0.0 % 0-0 Normal (applies to n on-numeric results) [facility] ([facility] Lymph # 0.8 10 1.5-5.0 Below low normal [facility] ( [facility] Desha # 0.5 10 0.0-0.8 Normal (applies to non-numeric resul ts) [facility] ([facility] Baso # 0.0 10 0.0-0.2 Normal (applies to non-numeric resul ts) [facility] ([facility] Eos # 0.0 10 0.0-0.5 Normal (applies to non-numeric resul ts) [facility] ([facility] ID Date Data Source [id number] 05/11/2019 12:22:00 AM EST [facility] ([facility] Name Value Range Interpretation Code Description Data Dana rce(s) Supporting Document(s) Influenza A Amplification Laboratory test result Normal (applies to non- numeric results) [facility] ([facility] ) Negative results do not preclude influen za or RSV virus infection and should not be used as the sole basis for treatment or other patient management decisions. Influenza B Amplification Laboratory test result Normal (applies to non- numeric results) [facility] ([facility] ) Negative results do not preclude influen za or RSV virus infection and should not be used as the sole basis for treatment or other patient management decisions. ID Date Data Source [id number] 05/11/2019 12:22:00 AM EST [facility] ([facility] Name Value Range Interpretation Code Description Data Dana rce(s) Supporting Document(s) Glucose, Fasting 106 mg/dL 70-100 Above high normal M EDENT ([facility] Blood Urea Nitrogen 11 mg/dL 7-18 Normal (applies to non-nume fiorella results) [facility] ([facility] Glomerular Filtration Rate Laboratory test result Normal (applies to non- numeric results) [facility] ([facility] ) <content>Units are mL/min/1.73 m2</content>
<content></content>
<content>Chronic Kidney Disease Staging per NKF:</content>
<content></content>
<content>Stage I & II GFR >=60 Normal to Mildly Decreased</content>
<content>Stage III GFR 30-59 Moderately Decreased</content>
<content>Stage IV GFR 15-29 Severely Decreased</content>
<content>Stage V GFR <15 Very Little GFR Left</content>
<content>ESRD GFR <15 on SECURITY CLERK</content>
<content></content> Sodium Level 139 meq/L 136-145 Normal (applies to non-numeric res ults) [facility] ([facility] Creatinine For GFR 0.77 mg/dL 0.55-1.30 Normal (applies to non -numeric results) [facility] ([facility] Carbon Dioxide Level 30 meq/L 21-32 Normal (applies to non-num thu results) [facility] Chloride Level 106 meq/L 98-107 Normal (applies to non-numeric r esults) [facility] ([facility] Potassium Serum 4.0 meq/L 3.5-5.1 Normal (applies to non-numeric results) [facility] ([facility] Anion Gap 3 meq/L 8-16 Below low normal MED[facility] ( [facility] Calcium Level 8.7 mg/dL 8.8-10.2 Below low normal MEDEN T ([facility] ID Date Data Source [id number] 05/11/2019 12:22:00 AM EST MED[facility] ([facility] Name Value Range Interpretation Code Description Data Dana rce(s) Supporting Document(s) CPK Creatine Phosphokinase 67 U/L 26-192 Blanca l (applies to non-numeric results) MEDJONA ([facility] ) Troponin I Laboratory test result Normal (applies to non-n umeric results) MEDJONA ([facility] <content>Troponin I Reference Interval f or Siemens [place] LOCI:</content>
<content></content>
<content>99th Percentile= 0.00-0.045 ng/ml</content>
<content></content>
<content>Risk Stratification:</content>
<content><= 0.10 ng/ml Decreased Risk for Adverse Clinical</content>
<content>Events.</content>
<content>0.10-1.50 ng/ml Increased Risk for Adverse Clinical</content>
<content>Events. Evaluation of additional</content>
<content>criterion and/or repeat testing in 2-6</content>
<content>hours is suggested to rule out myocardial</content>
<content>damage.</content>
<content>>= 1.50 ng/ml Indicative of Myocardial Injury.</content>
<content></content> CK-MB Value Mass 1.3 ng/mL Normal (applies to non-numeric results) MEDJONA ([facility] MB/CK Relative Index 1.94 Normal (applies to non-num thu results) MEDJONA ([facility] <content>DIAGNOSIS CRITERIA</content>
<content>MMB ng/ml Relative Index (RI)</content>
<content>NON-AMI < or = 5 N/A</content>
<content>SOMMER ZONE > 5 < or = 4</content>
<content>AMI > 5 > 4</content>
<content></content> ID Date Data Source [id number] 05/11/2019 12:22:00 AM EST [facility] ([facility]) Name Value Range Interpretation Code Description Data Dana rce(s) Supporting Document(s) Glucose, Fasting 106 mg/dL 70-100 [facility] ([facility]) Blood Urea Nitrogen 11 mg/dL 7-18 [facility] ([facility]) Creatinine For GFR 0.77 mg/dL 0.55-1.30 [facility] ([facility]) Glomerular Filtration Rate > 60.0 MED ENT ([facility]) <content>Units are mL/min/1.73 m2</content>
<content></content>
<content>Chronic Kidney Disease Staging per NKF:</content>
<content></content>
<content>Stage I & II GFR >=60 Normal to Mildly Decreased</content>
<content>Stage III GFR 30-59 Moderately Decreased</content>
<content>Stage IV GFR 15-29 Severely Decreased</content>
<content>Stage V GFR <15 Very Little GFR Left</content>
<content>ESRD GFR <15 on SECURITY CLERK</content>
<content></content>
<content></content> Sodium Level 139 meq/L 136-145 [facility] ([facility]) Potassium Serum 4.0 meq/L 3.5-5.1 [facility] ([facility]) Chloride Level 106 meq/L 98-107 [facility] ([facility] Carbon Dioxide Level 30 meq/L 21-32 [facility] ([facility]) Calcium [Mass/volume] in Serum or Plasma 8.7 mg/dL 8.8-10.2 [facility] ([facility]) Anion Gap 3 meq/L 8-16 [facility] ([facility]) ID Date Data Source [id number] 05/11/2019 12:22:00 AM EST [facility] ([facility]) Name Value Range Interpretation Code Description Data Dana rce(s) Supporting Document(s) White Blood Count 5.9 10 4.0-10.0 [facility] ([facility] Hematocrit [Volume Fraction] of Blood by Automated count 41.7 % 3 6.0-47.0 [facility] ([facility]) Hemoglobin 13.7 g/dL 12.0-15.5 [facility] ([facility]) Red Blood Count 4.27 10 4.00-5.40 [facility] ([facility]) Mean Corpuscular Hemoglobin 32.1 pg 27.0-33.0 [facility] ([facility]) Mean Corpuscular Volume 97.7 fl 80.0-96.0 M EDENT ([facility]) Mean Corpuscular HGB Conc 32.9 g/dL 32.0-36.5 [facility] ([facility]) Neutrophils % 76.2 % 36.0-66.0 [facility] ([facility]) Platelet Count, Automated 223 10 150-450 [facility] ([facility]) Red Cell Distribution Width 13.2 % 11.5-14.5 [facility] ([facility]) Desha % 8.8 % 0.0-5.0 [facility] ([place] [facility] Eos % 0.2 % 0.0-3.0 [facility] ([place] [facility] Lymphocytes/100 leukocytes in Blood by Automated count 14.1 % 24. 0-44.0 [facility] ([facility]) Baso % 0.2 % 0.0-1.0 [facility] ([place] [facility] Nucleated Red Blood Cell % 0.0 % 0-0 MED ENT ([facility]) Immature Granulocyte % 0.5 % 0-3.0 [facility] ([facility]) Lymph # 0.8 10 1.5-5.0 [facility] ([place] [facility] Desha # 0.5 10 0.0-0.8 [facility] ([place] [facility] Neutrophils # 4.5 10 1.5-8.5 [facility] ([facility]) Eos # 0.0 10 0.0-0.5 [facility] ([place] [facility] Baso # 0.0 10 0.0-0.2 [facility] ([place] [facility] ID Date Data Source [id number] 05/04/2019 12:00:00 AM EST [facility] Nagi Fish DO Patient Name: CHELITA JAMES [facility], [address] Date of : [address], [place] [address] Date of Exam: 05/04/2019PH#: Fax: [phone] EXAM: US CAROTID BILATERAL COMPLETECLINICAL INFORMATION: Dizziness.Realtime sonographic evaluation and duplex Doppler interrogation of theextracranial carotid vasculature is performed.There is mild intimal thickening of the common carotid arteries with mildscattered plaquing of the carotid bulbs and internal carotid arteries.There is mild luminal narrowing bilaterally without evidence ofhemodynamically significant stenosis. Normal fl ow velocities are seen inthe internal carotid arteries bilaterally. There is normal direction offlow in both vertebral arteries. RIGHT LEFTCCA/PSV 65.6 cm/s 60.5 cm/s CCA/EDV 22.9 cm/s 19.4 cm/Helder/PSV 71.1 cm/s 69.2 cm/Helder/EDV 33.0 cm/s 34.4 cm/sECA/PSV 79.5 cm/s 78.5 cm/Helder/CCA ratio 1.1 1.1Incidental note is made of a solid nodule in the left lobe of the thyroidslightly greater than 1 cm in diameter.IMPRESSION:Mild plaquing and narrowing bilateral internal carotid arteries, luminalnarrowing is less than 50% with no evidence of hemodynamically significantstenosis bilaterally. Normal flow velocities are observed in both internalcarotid arteries.Incidental note made of a solid nodule in the left lobe of the thyroidslightly greater than 1 cm in diameter. Further evaluation may be madewith formal thyroid ultrasound.Accredited by the [employer] in Vascular CerebroUltrasound.CHANCE Ken/jmcThank you for referring ROWAN JAMES to our office. Electronically Signed - BRIAN SOMMER MD 05/04/19 15:28 Name Value Range Interpretation Code Description Data Dana rce(s) Supporting Document(s) ID Date Data Source [id number] 04/29/2019 12:05:00 PM EST [facility] ([facility] Name Value Range Interpretation Code Description Data Dana rce(s) Supporting Document(s) Thyrotropin [Units/volume] in Serum or Plasma 2.061 ulU/mL 0.60-4.8 [facility] ([facility] ID Date Data Source [id number] 04/29/2019 12:05:00 PM EST [facility] ([facility]) Name Value Range Interpretation Code Description Data Dana rce(s) Supporting Document(s) Thyrotropin [Units/volume] in Serum or Plasma 2.061 ulU/mL 0.60-4.8 [facility] ([facility]) ID Date Data Source [id number] 04/29/2019 12:04:00 PM EST [facility] ([facility] Name Value Range Interpretation Code Description Data Dana rce(s) Supporting Document(s) Chol 219 mg/dL 0-200 Above high normal [facility] ([facility] CLASSIFICATION CHOLESTEROL FO R ADULTS CHILDREN/ADOLESCENTS* DESIRABLE: <200 MG/DL <170 MG/DL BORDER-LINE HIGH RISK: 200-239 MG/DL 170-199 MG/DL HIGH RISK: >240 MG/DL >200 MG/DL CLASS. FOR PRIMARY LDL CHOL PREVENTION: LDL CHOL-CHILD/ADOLESCENTS* DESIRABLE: <130 MG/DL <110 MG/DL BORDERLINE-HIGH RISK: 130-159 MG/DL 110-129 MG/DL HIGH RISK: >160 MG/DL >130 MG/DL *CHILDREN AND ADOLESCENTS REPRESENTS INDIVIDUALA AGED 2-19 YEARS EXCLUSIVE. Trig 180 mg/dL 40-200 [facility] CLASSIFICATION CHOLESTEROL FO R ADULTS CHILDREN/ADOLESCENTS* DESIRABLE: <200 MG/DL <170 MG/DL BORDER-LINE HIGH RISK: 200-239 MG/DL 170-199 MG/DL HIGH RISK: >240 MG/DL >200 MG/DL CLASS. FOR PRIMARY LDL CHOL PREVENTION: LDL CHOL-CHILD/ADOLESCENTS* DESIRABLE: <130 MG/DL <110 MG/DL BORDERLINE-HIGH RISK: 130-159 MG/DL 110-129 MG/DL HIGH RISK: >160 MG/DL >130 MG/DL *CHILDREN AND ADOLESCENTS REPRESENTS INDIVIDUALA AGED 2-19 YEARS EXCLUSIVE. Prostate specific Ag [Mass/volume] in Serum or Plasma 68 mg/dL 45-65 Above high normal [facility] ([facility] ) CLASSIFICATION CHOLESTEROL FO R ADULTS CHILDREN/ADOLESCENTS* DESIRABLE: <200 MG/DL <170 MG/DL BORDER-LINE HIGH RISK: 200-239 MG/DL 170-199 MG/DL HIGH RISK: >240 MG/DL >200 MG/DL CLASS. FOR PRIMARY LDL CHOL PREVENTION: LDL CHOL-CHILD/ADOLESCENTS* DESIRABLE: <130 MG/DL <110 MG/DL BORDERLINE-HIGH RISK: 130-159 MG/DL 110-129 MG/DL HIGH RISK: >160 MG/DL >130 MG/DL *CHILDREN AND ADOLESCENTS REPRESENTS INDIVIDUALA AGED 2-19 YEARS EXCLUSIVE. LDL_C 114 Calc 75-129 [facility] ([facility] CLASSIFICATION CHOLESTEROL FO R ADULTS CHILDREN/ADOLESCENTS* DESIRABLE: <200 MG/DL <170 MG/DL BORDER-LINE HIGH RISK: 200-239 MG/DL 170-199 MG/DL HIGH RISK: >240 MG/DL >200 MG/DL CLASS. FOR PRIMARY LDL CHOL PREVENTION: LDL CHOL-CHILD/ADOLESCENTS* DESIRABLE: <130 MG/DL <110 MG/DL BORDERLINE-HIGH RISK: 130-159 MG/DL 110-129 MG/DL HIGH RISK: >160 MG/DL >130 MG/DL *CHILDREN AND ADOLESCENTS REPRESENTS INDIVIDUALA AGED 2-19 YEARS EXCLUSIVE. Cho/HDL Ratio 3.2 CALC MED[facility] ([facility] CLASSIFICATION CHOLESTEROL FO R ADULTS CHILDREN/ADOLESCENTS* DESIRABLE: <200 MG/DL <170 MG/DL BORDER-LINE HIGH RISK: 200-239 MG/DL 170-199 MG/DL HIGH RISK: >240 MG/DL >200 MG/DL CLASS. FOR PRIMARY LDL CHOL PREVENTION: LDL CHOL-CHILD/ADOLESCENTS* DESIRABLE: <130 MG/DL <110 MG/DL BORDERLINE-HIGH RISK: 130-159 MG/DL 110-129 MG/DL HIGH RISK: >160 MG/DL >130 MG/DL *CHILDREN AND ADOLESCENTS REPRESENTS INDIVIDUALA AGED 2-19 YEARS EXCLUSIVE. ID Date Data Source [id number] 04/29/2019 12:04:00 PM EST MEDENT ([facility]) Name Value Range Interpretation Code Description Data Dana rce(s) Supporting Document(s) Chol 219 mg/dL 0-200 MED[facility] ([facility]) CLASSIFICATION CHOLESTEROL FO R ADULTS CHILDREN/ADOLESCENTS* DESIRABLE: <200 MG/DL <170 MG/DL BORDER-LINE HIGH RISK: 200-239 MG/DL 170-199 MG/DL HIGH RISK: >240 MG/DL >200 MG/DL CLASS. FOR PRIMARY LDL CHOL PREVENTION: LDL CHOL-CHILD/ADOLESCENTS* DESIRABLE: <130 MG/DL <110 MG/DL BORDERLINE-HIGH RISK: 130-159 MG/DL 110-129 MG/DL HIGH RISK: >160 MG/DL >130 MG/DL *CHILDREN AND ADOLESCENTS REPRESENTS INDIVIDUALA AGED 2-19 YEARS EXCLUSIVE. Prostate specific Ag [Mass/volume] in Serum or Plasma 68 mg/dL 45-6 5 [facility] CLASSIFICATION CHOLESTEROL FO R ADULTS CHILDREN/ADOLESCENTS* DESIRABLE: <200 MG/DL <170 MG/DL BORDER-LINE HIGH RISK: 200-239 MG/DL 170-199 MG/DL HIGH RISK: >240 MG/DL >200 MG/DL CLASS. FOR PRIMARY LDL CHOL PREVENTION: LDL CHOL-CHILD/ADOLESCENTS* DESIRABLE: <130 MG/DL <110 MG/DL BORDERLINE-HIGH RISK: 130-159 MG/DL 110-129 MG/DL HIGH RISK: >160 MG/DL >130 MG/DL *CHILDREN AND ADOLESCENTS REPRESENTS INDIVIDUALA AGED 2-19 YEARS EXCLUSIVE. LDL_C 114 Calc 75-129 MED[facility] ([facility]) CLASSIFICATION CHOLESTEROL FO R ADULTS CHILDREN/ADOLESCENTS* DESIRABLE: <200 MG/DL <170 MG/DL BORDER-LINE HIGH RISK: 200-239 MG/DL 170-199 MG/DL HIGH RISK: >240 MG/DL >200 MG/DL CLASS. FOR PRIMARY LDL CHOL PREVENTION: LDL CHOL-CHILD/ADOLESCENTS* DESIRABLE: <130 MG/DL <110 MG/DL BORDERLINE-HIGH RISK: 130-159 MG/DL 110-129 MG/DL HIGH RISK: >160 MG/DL >130 MG/DL *CHILDREN AND ADOLESCENTS REPRESENTS INDIVIDUALA AGED 2-19 YEARS EXCLUSIVE. Trig 180 mg/dL 40-200 [facility] ([facility]) CLASSIFICATION CHOLESTEROL FO R ADULTS CHILDREN/ADOLESCENTS* DESIRABLE: <200 MG/DL <170 MG/DL BORDER-LINE HIGH RISK: 200-239 MG/DL 170-199 MG/DL HIGH RISK: >240 MG/DL >200 MG/DL CLASS. FOR PRIMARY LDL CHOL PREVENTION: LDL CHOL-CHILD/ADOLESCENTS* DESIRABLE: <130 MG/DL <110 MG/DL BORDERLINE-HIGH RISK: 130-159 MG/DL 110-129 MG/DL HIGH RISK: >160 MG/DL >130 MG/DL *CHILDREN AND ADOLESCENTS REPRESENTS INDIVIDUALA AGED 2-19 YEARS EXCLUSIVE. Cho/HDL Ratio 3.2 CALC [facility] ([facility] CLASSIFICATION CHOLESTEROL FO R ADULTS CHILDREN/ADOLESCENTS* DESIRABLE: <200 MG/DL <170 MG/DL BORDER-LINE HIGH RISK: 200-239 MG/DL 170-199 MG/DL HIGH RISK: >240 MG/DL >200 MG/DL CLASS. FOR PRIMARY LDL CHOL PREVENTION: LDL CHOL-CHILD/ADOLESCENTS* DESIRABLE: <130 MG/DL <110 MG/DL BORDERLINE-HIGH RISK: 130-159 MG/DL 110-129 MG/DL HIGH RISK: >160 MG/DL >130 MG/DL *CHILDREN AND ADOLESCENTS REPRESENTS INDIVIDUALA AGED 2-19 YEARS EXCLUSIVE. ID Date Data Source [id number] 03/22/2019 11:04:00 AM EST [facility] ([facility] Name Value Range Interpretation Code Description Data Dana rce(s) Supporting Document(s) Color Urine Laboratory test result M ROXY ([facility] Appearance of Urine Laboratory test result [facility] ([facility] Specific [place] 1.020 1.00-1.03 [facility] ([facility] Glucose Urine Laboratory test result [facility] ([facility] PH Urine 5.5 5.0-8.0 [facility] Ketones Laboratory test result [facility] ([facility] Bilirubin.total [Presence] in Urine by Test strip Laboratory test res ult [facility] ([facility] Protein Urine Laboratory test result [facility] ([facility] Blood Urine Laboratory test result M EDJONA ([facility] Urobilinogen 0.2 EU/dl 0.2-1.0 [facility] ([facility] Nitrite Laboratory test result MARY ([facility] Leukocytes Laboratory test result ME FRIAS ([facility] ID Date Data Source [id number] 03/22/2019 11:03:00 AM EST MEDJONA ([facility] Name Value Range Interpretation Code Description Data Dana rce(s) Supporting Document(s) Glu 106 mg/dL 70-110 [facility] CHRONIC KIDNEY DISEASE STAGING PER NKF: MALE [...] mL/min Normal 80 and above >32 mL/min NormalNORMAL RANGES Age WBC RBC HGB HCT MCV PLT Adult M 4.1-10.9 4.20-6.30 12.0-18.0 37.0-51.0 80-97 140-440 Adult F 4.1-10.9 4.04-5.48 12.0-18.0 37.0-51.0 80-97 140-440 0- 1 Yr 5.0-20.0 3.9-5.9 15-18 MV: 44 MV: 91 MV: 277 2-9 Yr. 6.0-17.0 3.8-5.4 11-13 MV: 37 MV: 78 MV: 300 10 Yrs. 5.0-13.0 3.8-5.4 12-15 MV: 39 MV: 80 MV: 250 NOTE: * FOR ADULT BLACK MALES AND FEMALES, NORMAL WBC IS 2.9-7.7 K/ML * FOR ADULT BLACK MALES AND FEMALES, NORMAL RBC,HGB, AND HCT IS 5% LESS SOURCE FOR DATA: Instagram 1800 OPERATION MANUAL( AUTOMATED BLOOD COUNTS AND DIFF.) APPENDIX B-3 BUN 14 mg/dL 11-13 [facility] ([facility] CHRONIC KIDNEY DISEASE STAGING PER NKF: MALE [...] mL/min Normal 80 and above >32 mL/min NormalNORMAL RANGES Age WBC RBC HGB HCT MCV PLT Adult M 4.1-10.9 4.20-6.30 12.0-18.0 37.0-51.0 80-97 140-440 Adult F 4.1-10.9 4.04-5.48 12.0-18.0 37.0-51.0 80-97 140-440 0- 1 Yr 5.0-20.0 3.9-5.9 15-18 MV: 44 MV: 91 MV: 277 2-9 Yr. 6.0-17.0 3.8-5.4 11-13 MV: 37 MV: 78 MV: 300 10 Yrs. 5.0-13.0 3.8-5.4 12-15 MV: 39 MV: 80 MV: 250 NOTE: * FOR ADULT BLACK MALES AND FEMALES, NORMAL WBC IS 2.9-7.7 K/ML * FOR ADULT BLACK MALES AND FEMALES, NORMAL RBC,HGB, AND HCT IS 5% LESS SOURCE FOR DATA: Instagram 1800 OPERATION MANUAL( AUTOMATED BLOOD COUNTS AND DIFF.) APPENDIX B-3 Creat 0.7 mg/dL 0.5-1.0 [facility] CHRONIC KIDNEY DISEASE STAGING PER NKF: MALE [...] mL/min Normal 80 and above >32 mL/min NormalNORMAL RANGES Age WBC RBC HGB HCT MCV PLT Adult M 4.1-10.9 4.20-6.30 12.0-18.0 37.0-51.0 80-97 140-440 Adult F 4.1-10.9 4.04-5.48 12.0-18.0 37.0-51.0 80-97 140-440 0- 1 Yr 5.0-20.0 3.9-5.9 15-18 MV: 44 MV: 91 MV: 277 2-9 Yr. 6.0-17.0 3.8-5.4 11-13 MV: 37 MV: 78 MV: 300 10 Yrs. 5.0-13.0 3.8-5.4 12-15 MV: 39 MV: 80 MV: 250 NOTE: * FOR ADULT BLACK MALES AND FEMALES, NORMAL WBC IS 2.9-7.7 K/ML * FOR ADULT BLACK MALES AND FEMALES, NORMAL RBC,HGB, AND HCT IS 5% LESS SOURCE FOR DATA: Korrio DYN 1800 OPERATION MANUAL( AUTOMATED BLOOD COUNTS AND DIFF.) APPENDIX B-3 BUN/Creatinine Ratio 19.6 CALC [facility] ([facility] CHRONIC KIDNEY DISEASE STAGING PER NKF: MALE [...] mL/min Normal 80 and above >32 mL/min NormalNORMAL RANGES Age WBC RBC HGB HCT MCV PLT Adult M 4.1-10.9 4.20-6.30 12.0-18.0 37.0-51.0 80-97 140-440 Adult F 4.1-10.9 4.04-5.48 12.0-18.0 37.0-51.0 80-97 140-440 0- 1 Yr 5.0-20.0 3.9-5.9 15-18 MV: 44 MV: 91 MV: 277 2-9 Yr. 6.0-17.0 3.8-5.4 11-13 MV: 37 MV: 78 MV: 300 10 Yrs. 5.0-13.0 3.8-5.4 12-15 MV: 39 MV: 80 MV: 250 NOTE: * FOR ADULT BLACK MALES AND FEMALES, NORMAL WBC IS 2.9-7.7 K/ML * FOR ADULT BLACK MALES AND FEMALES, NORMAL RBC,HGB, AND HCT IS 5% LESS SOURCE FOR DATA: Korrio DYN 1800 OPERATION MANUAL( AUTOMATED BLOOD COUNTS AND DIFF.) APPENDIX B-3 Co2 24.3 mmol/L 22.0-29.0 [facility] ([facility] CHRONIC KIDNEY DISEASE STAGING PER NKF: MALE [...] mL/min Normal 80 and above >32 mL/min NormalNORMAL RANGES Age WBC RBC HGB HCT MCV PLT Adult M 4.1-10.9 4.20-6.30 12.0-18.0 37.0-51.0 80-97 140-440 Adult F 4.1-10.9 4.04-5.48 12.0-18.0 37.0-51.0 80-97 140-440 0- 1 Yr 5.0-20.0 3.9-5.9 15-18 MV: 44 MV: 91 MV: 277 2-9 Yr. 6.0-17.0 3.8-5.4 11-13 MV: 37 MV: 78 MV: 300 10 Yrs. 5.0-13.0 3.8-5.4 12-15 MV: 39 MV: 80 MV: 250 NOTE: * FOR ADULT BLACK MALES AND FEMALES, NORMAL WBC IS 2.9-7.7 K/ML * FOR ADULT BLACK MALES AND FEMALES, NORMAL RBC,HGB, AND HCT IS 5% LESS SOURCE FOR DATA: Instagram 1800 OPERATION MANUAL( AUTOMATED BLOOD COUNTS AND DIFF.) APPENDIX B-3 CA 10.0 mg/dL 8.6-10.2 [facility] CHRONIC KIDNEY DISEASE STAGING PER NKF: MALE [...] mL/min Normal 80 and above >32 mL/min NormalNORMAL RANGES Age WBC RBC HGB HCT MCV PLT Adult M 4.1-10.9 4.20-6.30 12.0-18.0 37.0-51.0 80-97 140-440 Adult F 4.1-10.9 4.04-5.48 12.0-18.0 37.0-51.0 80-97 140-440 0- 1 Yr 5.0-20.0 3.9-5.9 15-18 MV: 44 MV: 91 MV: 277 2-9 Yr. 6.0-17.0 3.8-5.4 11-13 MV: 37 MV: 78 MV: 300 10 Yrs. 5.0-13.0 3.8-5.4 12-15 MV: 39 MV: 80 MV: 250 NOTE: * FOR ADULT BLACK MALES AND FEMALES, NORMAL WBC IS 2.9-7.7 K/ML * FOR ADULT BLACK MALES AND FEMALES, NORMAL RBC,HGB, AND HCT IS 5% LESS SOURCE FOR DATA: TONY DYN 1800 OPERATION MANUAL( AUTOMATED BLOOD COUNTS AND DIFF.) APPENDIX B-3 Na 137 mmol/L 136-145 [facility] ([facility] CHRONIC KIDNEY DISEASE STAGING PER NKF: MALE [...] mL/min Normal 80 and above >32 mL/min NormalNORMAL RANGES Age WBC RBC HGB HCT MCV PLT Adult M 4.1-10.9 4.20-6.30 12.0-18.0 37.0-51.0 80-97 140-440 Adult F 4.1-10.9 4.04-5.48 12.0-18.0 37.0-51.0 80-97 140-440 0- 1 Yr 5.0-20.0 3.9-5.9 15-18 MV: 44 MV: 91 MV: 277 2-9 Yr. 6.0-17.0 3.8-5.4 11-13 MV: 37 MV: 78 MV: 300 10 Yrs. 5.0-13.0 3.8-5.4 12-15 MV: 39 MV: 80 MV: 250 NOTE: * FOR ADULT BLACK MALES AND FEMALES, NORMAL WBC IS 2.9-7.7 K/ML * FOR ADULT BLACK MALES AND FEMALES, NORMAL RBC,HGB, AND HCT IS 5% LESS SOURCE FOR DATA: TONY DYN 1800 OPERATION MANUAL( AUTOMATED BLOOD COUNTS AND DIFF.) APPENDIX B-3 K 3.8 mmol/L 3.5-5.1 [facility] ([facility] CHRONIC KIDNEY DISEASE STAGING PER NKF: MALE [...] mL/min Normal 80 and above >32 mL/min NormalNORMAL RANGES Age WBC RBC HGB HCT MCV PLT Adult M 4.1-10.9 4.20-6.30 12.0-18.0 37.0-51.0 80-97 140-440 Adult F 4.1-10.9 4.04-5.48 12.0-18.0 37.0-51.0 80-97 140-440 0- 1 Yr 5.0-20.0 3.9-5.9 15-18 MV: 44 MV: 91 MV: 277 2-9 Yr. 6.0-17.0 3.8-5.4 11-13 MV: 37 MV: 78 MV: 300 10 Yrs. 5.0-13.0 3.8-5.4 12-15 MV: 39 MV: 80 MV: 250 NOTE: * FOR ADULT BLACK MALES AND FEMALES, NORMAL WBC IS 2.9-7.7 K/ML * FOR ADULT BLACK MALES AND FEMALES, NORMAL RBC,HGB, AND HCT IS 5% LESS SOURCE FOR DATA: TONY DYN 1800 OPERATION MANUAL( AUTOMATED BLOOD COUNTS AND DIFF.) APPENDIX B-3 CL 103.3 mmol/L 98.0-107.0 MARY ([facility] CHRONIC KIDNEY DISEASE STAGING PER NKF: MALE [...] mL/min Normal 80 and above >32 mL/min NormalNORMAL RANGES Age WBC RBC HGB HCT MCV PLT Adult M 4.1-10.9 4.20-6.30 12.0-18.0 37.0-51.0 80-97 140-440 Adult F 4.1-10.9 4.04-5.48 12.0-18.0 37.0-51.0 80-97 140-440 0- 1 Yr 5.0-20.0 3.9-5.9 15-18 MV: 44 MV: 91 MV: 277 2-9 Yr. 6.0-17.0 3.8-5.4 11-13 MV: 37 MV: 78 MV: 300 10 Yrs. 5.0-13.0 3.8-5.4 12-15 MV: 39 MV: 80 MV: 250 NOTE: * FOR ADULT BLACK MALES AND FEMALES, NORMAL WBC IS 2.9-7.7 K/ML * FOR ADULT BLACK MALES AND FEMALES, NORMAL RBC,HGB, AND HCT IS 5% LESS SOURCE FOR DATA: Instagram 1800 OPERATION MANUAL( AUTOMATED BLOOD COUNTS AND DIFF.) APPENDIX B-3 eGFR 93 # [facility] ( [facility] CHRONIC KIDNEY DISEASE STAGING PER NKF: MALE [...] mL/min Normal 80 and above >32 mL/min NormalNORMAL RANGES Age WBC RBC HGB HCT MCV PLT Adult M 4.1-10.9 4.20-6.30 12.0-18.0 37.0-51.0 80-97 140-440 Adult F 4.1-10.9 4.04-5.48 12.0-18.0 37.0-51.0 80-97 140-440 0- 1 Yr 5.0-20.0 3.9-5.9 15-18 MV: 44 MV: 91 MV: 277 2-9 Yr. 6.0-17.0 3.8-5.4 11-13 MV: 37 MV: 78 MV: 300 10 Yrs. 5.0-13.0 3.8-5.4 12-15 MV: 39 MV: 80 MV: 250 NOTE: * FOR ADULT BLACK MALES AND FEMALES, NORMAL WBC IS 2.9-7.7 K/ML * FOR ADULT BLACK MALES AND FEMALES, NORMAL RBC,HGB, AND HCT IS 5% LESS SOURCE FOR DATA: Instagram 1800 OPERATION MANUAL( AUTOMATED BLOOD COUNTS AND DIFF.) APPENDIX B-3 Anion Gap 13 mmol/L [facility] ([facility] CHRONIC KIDNEY DISEASE STAGING PER NKF: MALE [...] mL/min Normal 80 and above >32 mL/min NormalNORMAL RANGES Age WBC RBC HGB HCT MCV PLT Adult M 4.1-10.9 4.20-6.30 12.0-18.0 37.0-51.0 80-97 140-440 Adult F 4.1-10.9 4.04-5.48 12.0-18.0 37.0-51.0 80-97 140-440 0- 1 Yr 5.0-20.0 3.9-5.9 15-18 MV: 44 MV: 91 MV: 277 2-9 Yr. 6.0-17.0 3.8-5.4 11-13 MV: 37 MV: 78 MV: 300 10 Yrs. 5.0-13.0 3.8-5.4 12-15 MV: 39 MV: 80 MV: 250 NOTE: * FOR ADULT BLACK MALES AND FEMALES, NORMAL WBC IS 2.9-7.7 K/ML * FOR ADULT BLACK MALES AND FEMALES, NORMAL RBC,HGB, AND HCT IS 5% LESS SOURCE FOR DATA: Instagram 1800 OPERATION MANUAL( AUTOMATED BLOOD COUNTS AND DIFF.) APPENDIX B-3 eGFR Non-Afr. [place] 80 # [facility] ([facility] CHRONIC KIDNEY DISEASE STAGING PER NKF: MALE [...] mL/min Normal 80 and above >32 mL/min NormalNORMAL RANGES Age WBC RBC HGB HCT MCV PLT Adult M 4.1-10.9 4.20-6.30 12.0-18.0 37.0-51.0 80-97 140-440 Adult F 4.1-10.9 4.04-5.48 12.0-18.0 37.0-51.0 80-97 140-440 0- 1 Yr 5.0-20.0 3.9-5.9 15-18 MV: 44 MV: 91 MV: 277 2-9 Yr. 6.0-17.0 3.8-5.4 11-13 MV: 37 MV: 78 MV: 300 10 Yrs. 5.0-13.0 3.8-5.4 12-15 MV: 39 MV: 80 MV: 250 NOTE: * FOR ADULT BLACK MALES AND FEMALES, NORMAL WBC IS 2.9-7.7 K/ML * FOR ADULT BLACK MALES AND FEMALES, NORMAL RBC,HGB, AND HCT IS 5% LESS SOURCE FOR DATA: Instagram 1800 OPERATION MANUAL( AUTOMATED BLOOD COUNTS AND DIFF.) APPENDIX B-3 ID Date Data Source [id number] 03/22/2019 11:03:00 AM MARYAN HERNANDEZ ([facility] Name Value Range Interpretation Code Description Data Dana rce(s) Supporting Document(s) WBC 6.7 10E3/uL 4.1-10.9 [facility] ([facility] CHRONIC KIDNEY DISEASE STAGING PER NKF: MALE [...] mL/min Normal 80 and above >32 mL/min NormalNORMAL RANGES Age WBC RBC HGB HCT MCV PLT Adult M 4.1-10.9 4.20-6.30 12.0-18.0 37.0-51.0 80-97 140-440 Adult F 4.1-10.9 4.04-5.48 12.0-18.0 37.0-51.0 80-97 140-440 0- 1 Yr 5.0-20.0 3.9-5.9 15-18 MV: 44 MV: 91 MV: 277 2-9 Yr. 6.0-17.0 3.8-5.4 11-13 MV: 37 MV: 78 MV: 300 10 Yrs. 5.0-13.0 3.8-5.4 12-15 MV: 39 MV: 80 MV: 250 NOTE: * FOR ADULT BLACK MALES AND FEMALES, NORMAL WBC IS 2.9-7.7 K/ML * FOR ADULT BLACK MALES AND FEMALES, NORMAL RBC,HGB, AND HCT IS 5% LESS SOURCE FOR DATA: TONY DYN 1800 OPERATION MANUAL( AUTOMATED BLOOD COUNTS AND DIFF.) APPENDIX B-3 HGB 13.7 g/dL 12.0-18.0 [facility] CHRONIC KIDNEY DISEASE STAGING PER NKF: MALE [...] mL/min Normal 80 and above >32 mL/min NormalNORMAL RANGES Age WBC RBC HGB HCT MCV PLT Adult M 4.1-10.9 4.20-6.30 12.0-18.0 37.0-51.0 80-97 140-440 Adult F 4.1-10.9 4.04-5.48 12.0-18.0 37.0-51.0 80-97 140-440 0- 1 Yr 5.0-20.0 3.9-5.9 15-18 MV: 44 MV: 91 MV: 277 2-9 Yr. 6.0-17.0 3.8-5.4 11-13 MV: 37 MV: 78 MV: 300 10 Yrs. 5.0-13.0 3.8-5.4 12-15 MV: 39 MV: 80 MV: 250 NOTE: * FOR ADULT BLACK MALES AND FEMALES, NORMAL WBC IS 2.9-7.7 K/ML * FOR ADULT BLACK MALES AND FEMALES, NORMAL RBC,HGB, AND HCT IS 5% LESS SOURCE FOR DATA: Korrio DYN 1800 OPERATION MANUAL( AUTOMATED BLOOD COUNTS AND DIFF.) APPENDIX B-3 RBC 4.19 10E6/uL 4.20-6.30 Below low normal [facility] ([facility] CHRONIC KIDNEY DISEASE STAGING PER NKF: MALE [...] mL/min Normal 80 and above >32 mL/min NormalNORMAL RANGES Age WBC RBC HGB HCT MCV PLT Adult M 4.1-10.9 4.20-6.30 12.0-18.0 37.0-51.0 80-97 140-440 Adult F 4.1-10.9 4.04-5.48 12.0-18.0 37.0-51.0 80-97 140-440 0- 1 Yr 5.0-20.0 3.9-5.9 15-18 MV: 44 MV: 91 MV: 277 2-9 Yr. 6.0-17.0 3.8-5.4 11-13 MV: 37 MV: 78 MV: 300 10 Yrs. 5.0-13.0 3.8-5.4 12-15 MV: 39 MV: 80 MV: 250 NOTE: * FOR ADULT BLACK MALES AND FEMALES, NORMAL WBC IS 2.9-7.7 K/ML * FOR ADULT BLACK MALES AND FEMALES, NORMAL RBC,HGB, AND HCT IS 5% LESS SOURCE FOR DATA: Instagram 1800 OPERATION MANUAL( AUTOMATED BLOOD COUNTS AND DIFF.) APPENDIX B-3 MCV 98.3 fL 80.0-97.0 Above high normal [facility] ([facility] CHRONIC KIDNEY DISEASE STAGING PER NKF: MALE [...] mL/min Normal 80 and above >32 mL/min NormalNORMAL RANGES Age WBC RBC HGB HCT MCV PLT Adult M 4.1-10.9 4.20-6.30 12.0-18.0 37.0-51.0 80-97 140-440 Adult F 4.1-10.9 4.04-5.48 12.0-18.0 37.0-51.0 80-97 140-440 0- 1 Yr 5.0-20.0 3.9-5.9 15-18 MV: 44 MV: 91 MV: 277 2-9 Yr. 6.0-17.0 3.8-5.4 11-13 MV: 37 MV: 78 MV: 300 10 Yrs. 5.0-13.0 3.8-5.4 12-15 MV: 39 MV: 80 MV: 250 NOTE: * FOR ADULT BLACK MALES AND FEMALES, NORMAL WBC IS 2.9-7.7 K/ML * FOR ADULT BLACK MALES AND FEMALES, NORMAL RBC,HGB, AND HCT IS 5% LESS SOURCE FOR DATA: Instagram 1800 OPERATION MANUAL( AUTOMATED BLOOD COUNTS AND DIFF.) APPENDIX B-3 HCT 41.2 % 37.0-51.0 [facility] CHRONIC KIDNEY DISEASE STAGING PER NKF: MALE [...] mL/min Normal 80 and above >32 mL/min NormalNORMAL RANGES Age WBC RBC HGB HCT MCV PLT Adult M 4.1-10.9 4.20-6.30 12.0-18.0 37.0-51.0 80-97 140-440 Adult F 4.1-10.9 4.04-5.48 12.0-18.0 37.0-51.0 80- 140-440 0- 1 Yr 5.0-20.0 3.9-5.9 15-18 MV: 44 MV: 91 MV: 277 2-9 Yr. 6.0-17.0 3.8-5.4 11-13 MV: 37 MV: 78 MV: 300 10 Yrs. 5.0-13.0 3.8-5.4 12-15 MV: 39 MV: 80 MV: 250 NOTE: * FOR ADULT BLACK MALES AND FEMALES, NORMAL WBC IS 2.9-7.7 K/ML * FOR ADULT BLACK MALES AND FEMALES, NORMAL RBC,HGB, AND HCT IS 5% LESS SOURCE FOR DATA: TONY DYN 1800 OPERATION MANUAL( AUTOMATED BLOOD COUNTS AND DIFF.) APPENDIX B-3 MCHC 33.3 g/dL 31.0-36.0 [facility] CHRONIC KIDNEY DISEASE STAGING PER NKF: MALE [...] mL/min Normal 80 and above >32 mL/min NormalNORMAL RANGES Age WBC RBC HGB HCT MCV PLT Adult M 4.1-10.9 4.20-6.30 12.0-18.0 37.0-51.0 80-97 140-440 Adult F 4.1-10.9 4.04-5.48 12.0-18.0 37.0-51.0 80-97 140-440 0- 1 Yr 5.0-20.0 3.9-5.9 15-18 MV: 44 MV: 91 MV: 277 2-9 Yr. 6.0-17.0 3.8-5.4 11-13 MV: 37 MV: 78 MV: 300 10 Yrs. 5.0-13.0 3.8-5.4 12-15 MV: 39 MV: 80 MV: 250 NOTE: * FOR ADULT BLACK MALES AND FEMALES, NORMAL WBC IS 2.9-7.7 K/ML * FOR ADULT BLACK MALES AND FEMALES, NORMAL RBC,HGB, AND HCT IS 5% LESS SOURCE FOR DATA: TONY DYN 1800 OPERATION MANUAL( AUTOMATED BLOOD COUNTS AND DIFF.) APPENDIX B-3 MCH 32.7 pg 26.0-32.0 Above high normal [facility] CHRONIC KIDNEY DISEASE STAGING PER NKF: MALE [...] mL/min Normal 80 and above >32 mL/min NormalNORMAL RANGES Age WBC RBC HGB HCT MCV PLT Adult M 4.1-10.9 4.20-6.30 12.0-18.0 37.0-51.0 80-97 140-440 Adult F 4.1-10.9 4.04-5.48 12.0-18.0 37.0-51.0 80-97 140-440 0- 1 Yr 5.0-20.0 3.9-5.9 15-18 MV: 44 MV: 91 MV: 277 2-9 Yr. 6.0-17.0 3.8-5.4 11-13 MV: 37 MV: 78 MV: 300 10 Yrs. 5.0-13.0 3.8-5.4 12-15 MV: 39 MV: 80 MV: 250 NOTE: * FOR ADULT BLACK MALES AND FEMALES, NORMAL WBC IS 2.9-7.7 K/ML * FOR ADULT BLACK MALES AND FEMALES, NORMAL RBC,HGB, AND HCT IS 5% LESS SOURCE FOR DATA: Instagram 1800 OPERATION MANUAL( AUTOMATED BLOOD COUNTS AND DIFF.) APPENDIX B-3 RDW-CV 13.0 % 11.5-14.5 [facility] ([facility] CHRONIC KIDNEY DISEASE STAGING PER NKF: MALE [...] mL/min Normal 80 and above >32 mL/min NormalNORMAL RANGES Age WBC RBC HGB HCT MCV PLT Adult M 4.1-10.9 4.20-6.30 12.0-18.0 37.0-51.0 80-97 140-440 Adult F 4.1-10.9 4.04-5.48 12.0-18.0 37.0-51.0 80-97 140-440 0- 1 Yr 5.0-20.0 3.9-5.9 15-18 MV: 44 MV: 91 MV: 277 2-9 Yr. 6.0-17.0 3.8-5.4 11-13 MV: 37 MV: 78 MV: 300 10 Yrs. 5.0-13.0 3.8-5.4 12-15 MV: 39 MV: 80 MV: 250 NOTE: * FOR ADULT BLACK MALES AND FEMALES, NORMAL WBC IS 2.9-7.7 K/ML * FOR ADULT BLACK MALES AND FEMALES, NORMAL RBC,HGB, AND HCT IS 5% LESS SOURCE FOR DATA: Instagram 1800 OPERATION MANUAL( AUTOMATED BLOOD COUNTS AND DIFF.) APPENDIX B-3 PLT 281 10E3/uL 140-440 [facility] ([facility] CHRONIC KIDNEY DISEASE STAGING PER NKF: MALE [...] mL/min Normal 80 and above >32 mL/min NormalNORMAL RANGES Age WBC RBC HGB HCT MCV PLT Adult M 4.1-10.9 4.20-6.30 12.0-18.0 37.0-51.0 80-97 140-440 Adult F 4.1-10.9 4.04-5.48 12.0-18.0 37.0-51.0 80-97 140-440 0- 1 Yr 5.0-20.0 3.9-5.9 15-18 MV: 44 MV: 91 MV: 277 2-9 Yr. 6.0-17.0 3.8-5.4 11-13 MV: 37 MV: 78 MV: 300 10 Yrs. 5.0-13.0 3.8-5.4 12-15 MV: 39 MV: 80 MV: 250 NOTE: * FOR ADULT BLACK MALES AND FEMALES, NORMAL WBC IS 2.9-7.7 K/ML * FOR ADULT BLACK MALES AND FEMALES, NORMAL RBC,HGB, AND HCT IS 5% LESS SOURCE FOR DATA: Korrio DYN 1800 OPERATION MANUAL( AUTOMATED BLOOD COUNTS AND DIFF.) APPENDIX B-3 Lym% 23.1 % 10.0-58.5 [facility] CHRONIC KIDNEY DISEASE STAGING PER NKF: MALE [...] mL/min Normal 80 and above >32 mL/min NormalNORMAL RANGES Age WBC RBC HGB HCT MCV PLT Adult M 4.1-10.9 4.20-6.30 12.0-18.0 37.0-51.0 80-97 140-440 Adult F 4.1-10.9 4.04-5.48 12.0-18.0 37.0-51.0 80-97 140-440 0- 1 Yr 5.0-20.0 3.9-5.9 15-18 MV: 44 MV: 91 MV: 277 2-9 Yr. 6.0-17.0 3.8-5.4 11-13 MV: 37 MV: 78 MV: 300 10 Yrs. 5.0-13.0 3.8-5.4 12-15 MV: 39 MV: 80 MV: 250 NOTE: * FOR ADULT BLACK MALES AND FEMALES, NORMAL WBC IS 2.9-7.7 K/ML * FOR ADULT BLACK MALES AND FEMALES, NORMAL RBC,HGB, AND HCT IS 5% LESS SOURCE FOR DATA: Instagram 1800 OPERATION MANUAL( AUTOMATED BLOOD COUNTS AND DIFF.) APPENDIX B-3 MXD% 5.8 % 0.1-24.0 [facility] CHRONIC KIDNEY DISEASE STAGING PER NKF: MALE [...] mL/min Normal 80 and above >32 mL/min NormalNORMAL RANGES Age WBC RBC HGB HCT MCV PLT Adult M 4.1-10.9 4.20-6.30 12.0-18.0 37.0-51.0 80-97 140-440 Adult F 4.1-10.9 4.04-5.48 12.0-18.0 37.0-51.0 80-97 140-440 0- 1 Yr 5.0-20.0 3.9-5.9 15-18 MV: 44 MV: 91 MV: 277 2-9 Yr. 6.0-17.0 3.8-5.4 11-13 MV: 37 MV: 78 MV: 300 10 Yrs. 5.0-13.0 3.8-5.4 12-15 MV: 39 MV: 80 MV: 250 NOTE: * FOR ADULT BLACK MALES AND FEMALES, NORMAL WBC IS 2.9-7.7 K/ML * FOR ADULT BLACK MALES AND FEMALES, NORMAL RBC,HGB, AND HCT IS 5% LESS SOURCE FOR DATA: Instagram 1800 OPERATION MANUAL( AUTOMATED BLOOD COUNTS AND DIFF.) APPENDIX B-3 Neut% 71.1 % 37.0-92.0 [facility] CHRONIC KIDNEY DISEASE STAGING PER NKF: MALE [...] mL/min Normal 80 and above >32 mL/min NormalNORMAL RANGES Age WBC RBC HGB HCT MCV PLT Adult M 4.1-10.9 4.20-6.30 12.0-18.0 37.0-51.0 80-97 140-440 Adult F 4.1-10.9 4.04-5.48 12.0-18.0 37.0-51.0 80-97 140-440 0- 1 Yr 5.0-20.0 3.9-5.9 15-18 MV: 44 MV: 91 MV: 277 2-9 Yr. 6.0-17.0 3.8-5.4 11-13 MV: 37 MV: 78 MV: 300 10 Yrs. 5.0-13.0 3.8-5.4 12-15 MV: 39 MV: 80 MV: 250 NOTE: * FOR ADULT BLACK MALES AND FEMALES, NORMAL WBC IS 2.9-7.7 K/ML * FOR ADULT BLACK MALES AND FEMALES, NORMAL RBC,HGB, AND HCT IS 5% LESS SOURCE FOR DATA: Korrio DYN 1800 OPERATION MANUAL( AUTOMATED BLOOD COUNTS AND DIFF.) APPENDIX B-3 Lym# 1.5 10E3/uL 0.6-4.1 [facility] ([facility] CHRONIC KIDNEY DISEASE STAGING PER NKF: MALE [...] mL/min Normal 80 and above >32 mL/min NormalNORMAL RANGES Age WBC RBC HGB HCT MCV PLT Adult M 4.1-10.9 4.20-6.30 12.0-18.0 37.0-51.0 80-97 140-440 Adult F 4.1-10.9 4.04-5.48 12.0-18.0 37.0-51.0 80-97 140-440 0- 1 Yr 5.0-20.0 3.9-5.9 15-18 MV: 44 MV: 91 MV: 277 2-9 Yr. 6.0-17.0 3.8-5.4 11-13 MV: 37 MV: 78 MV: 300 10 Yrs. 5.0-13.0 3.8-5.4 12-15 MV: 39 MV: 80 MV: 250 NOTE: * FOR ADULT BLACK MALES AND FEMALES, NORMAL WBC IS 2.9-7.7 K/ML * FOR ADULT BLACK MALES AND FEMALES, NORMAL RBC,HGB, AND HCT IS 5% LESS SOURCE FOR DATA: Instagram 1800 OPERATION MANUAL( AUTOMATED BLOOD COUNTS AND DIFF.) APPENDIX B-3 Neut# 4.8 % 2.0-7.8 [facility] CHRONIC KIDNEY DISEASE STAGING PER NKF: MALE [...] mL/min Normal 80 and above >32 mL/min NormalNORMAL RANGES Age WBC RBC HGB HCT MCV PLT Adult M 4.1-10.9 4.20-6.30 12.0-18.0 37.0-51.0 80-97 140-440 Adult F 4.1-10.9 4.04-5.48 12.0-18.0 37.0-51.0 80- 140-440 0- 1 Yr 5.0-20.0 3.9-5.9 15-18 MV: 44 MV: 91 MV: 277 2-9 Yr. 6.0-17.0 3.8-5.4 11-13 MV: 37 MV: 78 MV: 300 10 Yrs. 5.0-13.0 3.8-5.4 12-15 MV: 39 MV: 80 MV: 250 NOTE: * FOR ADULT BLACK MALES AND FEMALES, NORMAL WBC IS 2.9-7.7 K/ML * FOR ADULT BLACK MALES AND FEMALES, NORMAL RBC,HGB, AND HCT IS 5% LESS SOURCE FOR DATA: Instagram 1800 OPERATION MANUAL( AUTOMATED BLOOD COUNTS AND DIFF.) APPENDIX B-3 MXD# 0.4 10E3/uL 0.0-1.8 [facility] CHRONIC KIDNEY DISEASE STAGING PER NKF: MALE [...] mL/min Normal 80 and above >32 mL/min NormalNORMAL RANGES Age WBC RBC HGB HCT MCV PLT Adult M 4.1-10.9 4.20-6.30 12.0-18.0 37.0-51.0 80-97 140-440 Adult F 4.1-10.9 4.04-5.48 12.0-18.0 37.0-51.0 80-97 140-440 0- 1 Yr 5.0-20.0 3.9-5.9 15-18 MV: 44 MV: 91 MV: 277 2-9 Yr. 6.0-17.0 3.8-5.4 11-13 MV: 37 MV: 78 MV: 300 10 Yrs. 5.0-13.0 3.8-5.4 12-15 MV: 39 MV: 80 MV: 250 NOTE: * FOR ADULT BLACK MALES AND FEMALES, NORMAL WBC IS 2.9-7.7 K/ML * FOR ADULT BLACK MALES AND FEMALES, NORMAL RBC,HGB, AND HCT IS 5% LESS SOURCE FOR DATA: TONY DYN 1800 OPERATION MANUAL( AUTOMATED BLOOD COUNTS AND DIFF.) APPENDIX B-3 MPV 10.5 fL 9.0-13.0 [facility] ([facility] CHRONIC KIDNEY DISEASE STAGING PER NKF: MALE [...] mL/min Normal 80 and above >32 mL/min NormalNORMAL RANGES Age WBC RBC HGB HCT MCV PLT Adult M 4.1-10.9 4.20-6.30 12.0-18.0 37.0-51.0 80-97 140-440 Adult F 4.1-10.9 4.04-5.48 12.0-18.0 37.0-51.0 80-97 140-440 0- 1 Yr 5.0-20.0 3.9-5.9 15-18 MV: 44 MV: 91 MV: 277 2-9 Yr. 6.0-17.0 3.8-5.4 11-13 MV: 37 MV: 78 MV: 300 10 Yrs. 5.0-13.0 3.8-5.4 12-15 MV: 39 MV: 80 MV: 250 NOTE: * FOR ADULT BLACK MALES AND FEMALES, NORMAL WBC IS 2.9-7.7 K/ML * FOR ADULT BLACK MALES AND FEMALES, NORMAL RBC,HGB, AND HCT IS 5% LESS SOURCE FOR DATA: Instagram 1800 OPERATION MANUAL( AUTOMATED BLOOD COUNTS AND DIFF.) APPENDIX B-3 Procedure Social History Code Duration Value Status Description Data Source(s ) Smoking 01/11/2020 12:00:00 AM EDT Patient is a former smoker completed Patient is a former smoker MARY ([facility] ) Vital Signs ID Date Data Source UNK Name Value Range Interpretation Code Description Data Source(s) Oxygen saturation in Arterial blood by Pulse oximetry 97 % 97 % MARY ([facility] Body mass index (BMI) [Ratio] 26.1 kg/m2 26.1 k g/m2 MARY ([facility] [place] body weight 110 [lb_av] 110 [lb_av] ADAMEN T ([facility] Body weight 145.00 [lb_av] 145.00 [lb_av] ADAMEN T ([facility] Body height 62.50 [in_i] 62.50 [in_i] MARY ([facility] 5'2.50" Respiratory rate 18 /min 18 /min MARY ( [facility] Heart rate 94 /min 94 /min MARY ([facility] Body temperature 98.2 [degF] 98.2 [degF] MARY ( [facility] Diastolic blood pressure 64 mm[Hg] 64 mm[Hg] MARY ([facility] Systolic blood pressure 100 mm[Hg] 100 mm[Hg] M EDENT ([facility] Oxygen saturation in Arterial blood by Pulse oximetry 97 % 97 % MEDENT ([facility] Body mass index (BMI) [Ratio] 26.5 kg/m2 26.5 k g/m2 MEDENT ([facility] Rico body weight 110 [lb_av] 110 [lb_av] MEDEN T ([facility] Body weight 147.00 [lb_av] 147.00 [lb_av] MEDEN T ([facility] Body height 62.50 [in_i] 62.50 [in_i] MEDENT ([facility] 5'2.50" Respiratory rate 18 /min 18 /min MEDENT ( [facility] Heart rate 72 /min 72 /min MEDENT ([facility] Body temperature 97.1 [degF] 97.1 [degF] MEDENT ([facility] Diastolic blood pressure 68 mm[Hg] 68 mm[Hg] MEDENT ([facility] Systolic blood pressure 116 mm[Hg] 116 mm[Hg] M EDJONA ([facility] Oxygen saturation in Arterial blood by Pulse oximetry 95 % 95 % MEDENT ([facility] Body mass index (BMI) [Ratio] 25.9 kg/m2 25.9 k g/m2 MEDENT ([facility] Rico body weight 110 [lb_av] 110 [lb_av] MEDEN T ([facility] Body weight 144.00 [lb_av] 144.00 [lb_av] MEDEN T ([facility] Body height 62.50 [in_i] 62.50 [in_i] MEDENT ([facility] 5'2.50" Respiratory rate 18 /min 18 /min MEDENT ( [facility] Heart rate 98 /min 98 /min MEDENT ([facility] Body temperature 97.4 [degF] 97.4 [degF] MEDENT ([facility] Diastolic blood pressure 68 mm[Hg] 68 mm[Hg] MEDENT ([facility] Systolic blood pressure 130 mm[Hg] 130 mm[Hg] M EDENT ([facility] Rico body weight 110 [lb_av] 110 [lb_av] MEDEN T ([facility] Body weight 146.00 [lb_av] 146.00 [lb_av] MEDEN T ([facility] Body height 62.50 [in_i] 62.50 [in_i] MEDENT ([facility] 5'2.50" Respiratory rate 18 /min 18 /min MEDENT ( [facility] Heart rate 90 /min 90 /min MEDENT ([facility] Body temperature 97.2 [degF] 97.2 [degF] MEDENT ([facility] Diastolic blood pressure 58 mm[Hg] 58 mm[Hg] MEDENT ([facility] Systolic blood pressure 120 mm[Hg] 120 mm[Hg] M ROXY ([facility] Oxygen saturation in Arterial blood by Pulse oximetry 93 % 93 % ADAMENT ([facility] Body mass index (BMI) [Ratio] 26.3 kg/m2 26.3 k g/m2 MEDENT ([facility] Oxygen saturation in Arterial blood by Pulse oximetry 95 % 95 % MARY ([facility] ([place]), (Room Air) Body mass index (BMI) [Ratio] 26.6 kg/m2 26.6 k g/m2 MEDENT ([facility] Body weight 148.00 [lb_av] 148.00 [lb_av] MEDEN T ([facility] with back brace Body height 62.50 [in_i] 62.50 [in_i] MEDENT ([facility] 5'2.50" Respiratory rate 18 /min 18 /min MEDENT ( [facility] Heart rate 93 /min 93 /min MEDENT ([facility] Body temperature 97.9 [degF] 97.9 [degF] MEDENT ([facility] Diastolic blood pressure 78 mm[Hg] 78 mm[Hg] MEDENT ([facility] Systolic blood pressure 112 mm[Hg] 112 mm[Hg] M EDENT ([facility] Oxygen saturation in Arterial blood by Pulse oximetry 97 % 97 % MEDENT ([facility] Body mass index (BMI) [Ratio] 26.5 kg/m2 26.5 k g/m2 MEDENT ([facility] Body weight 147.00 [lb_av] 147.00 [lb_av] MEDEN T ([facility] Body height 62.50 [in_i] 62.50 [in_i] MEDENT ([facility] 5'2.50" Respiratory rate 18 /min 18 /min MEDENT ( [facility] Heart rate 82 /min 82 /min MEDENT ([facility] Body temperature 98.2 [degF] 98.2 [degF] MEDENT ([facility] Diastolic blood pressure 84 mm[Hg] 84 mm[Hg] MEDENT ([facility] Systolic blood pressure 128 mm[Hg] 128 mm[Hg] M EDENT ([facility] Body mass index (BMI) [Ratio] 25.9 kg/m2 25.9 k g/m2 MEDENT ([facility] Body weight 144.00 [lb_av] 144.00 [lb_av] MEDEN T ([facility] Body height 62.50 [in_i] 62.50 [in_i] MEDENT ([facility] 5'2.50" Respiratory rate 16 /min 16 /min MEDENT ( [facility] Heart rate 72 /min 72 /min MEDENT ([facility] Body temperature 98.2 [degF] 98.2 [degF] MEDENT ([facility] Diastolic blood pressure 70 mm[Hg] 70 mm[Hg] MEDENT ([facility] Systolic blood pressure 110 mm[Hg] 110 mm[Hg] [facility] Oxygen saturation in Arterial blood by Pulse oximetry 96 % 96 % MARY ([facility] ([facility]), ([facility]) Diastolic blood pressure 82 mm[Hg] 82 mm[Hg] [facility] ([facility]) Systolic blood pressure 120 mm[Hg] 120 mm[Hg] M [facility] ([facility]) Body weight 64.581 kg 64.581 kg [facility] ([facility]) Body mass index (BMI) [Ratio] 25.2 kg/m2 25.2 k g/m2 [facility] ([facility]) Body weight 142.38 [lb_av] 142.38 [lb_av] [facility] Body height 63 [in_i] 63 [in_i] [facility] ([facility]) 5'3" Oxygen saturation in Arterial blood by Pulse oximetry 97 % 97 % MEDJONA ([facility] ([facility]), ([facility] [employer]) Body mass index (BMI) [Ratio] 25.6 kg/m2 25.6 k g/m2 MEDENT ([facility] Body weight 142.00 [lb_av] 142.00 [lb_av] MEDEN T ([facility] Body height 62.50 [in_i] 62.50 [in_i] MEDENT ([facility] 5'2.50" Respiratory rate 20 /min 20 /min MEDENT ( [facility] Heart rate 88 /min 88 /min MEDENT ([facility] Body temperature 98.3 [degF] 98.3 [degF] MEDENT ([facility] Diastolic blood pressure 70 mm[Hg] 70 mm[Hg] MEDENT ([facility] Systolic blood pressure 100 mm[Hg] 100 mm[Hg] M EDENT ([facility] Oxygen saturation in Arterial blood by Pulse oximetry 94 % 94 % MARY ([facility] Body mass index (BMI) [Ratio] 26.1 kg/m2 26.1 k g/m2 MEDENT ([facility] Body weight 145.00 [lb_av] 145.00 [lb_av] MEDEN T ([facility] Body height 62.50 [in_i] 62.50 [in_i] MEDENT ([facility] 5'2.50" Respiratory rate 18 /min 18 /min MEDENT ( [facility] Heart rate 86 /min 86 /min MEDJONA ([facility] Body temperature 97.7 [degF] 97.7 [degF] MEDJONA ([facility] Diastolic blood pressure 68 mm[Hg] 68 mm[Hg] MEDENT ([facility] Systolic blood pressure 116 mm[Hg] 116 mm[Hg] M EDENT ([facility] Oxygen saturation in Arterial blood by Pulse oximetry 96 % 96 % MEDENT ([facility]) Body mass index (BMI) [Ratio] 27.6 kg/m2 27.6 k g/m2 MEDENT ([facility]) Body weight 146.12 [lb_av] 146.12 [lb_av] MEDEN T ([facility]) Body height 61 [in_i] 61 [in_i] MEDENT ([facility]) 5'1" Heart rate 63 /min 63 /min MEDENT ([facility]) Diastolic blood pressure 62 mm[Hg] 62 mm[Hg] MEDENT ([facility]) Systolic blood pressure 110 mm[Hg] 110 mm[Hg] M EDENT ([facility]) Oxygen saturation in Arterial blood by Pulse oximetry 95 % 95 % MARY ([facility] ([facility] [place]), ([facility] [employer]) Body mass index (BMI) [Ratio] 25.9 kg/m2 25.9 k g/m2 MEDENT ([facility] Body weight 144.00 [lb_av] 144.00 [lb_av] MEDEN T ([facility] Body height 62.50 [in_i] 62.50 [in_i] MEDENT ([facility] 5'2.50" Respiratory rate 16 /min 16 /min MEDENT ( [facility] Heart rate 88 /min 88 /min MEDENT ([facility] Body temperature 98.1 [degF] 98.1 [degF] MEDENT ([facility] Diastolic blood pressure 80 mm[Hg] 80 mm[Hg] MEDENT ([facility] Systolic blood pressure 120 mm[Hg] 120 mm[Hg] M EDENT ([facility] Oxygen saturation in Arterial blood by Pulse oximetry 93 % 93 % MEDENT ([facility] Body mass index (BMI) [Ratio] 26.6 kg/m2 26.6 k g/m2 MEDENT ([facility] Body weight 148.00 [lb_av] 148.00 [lb_av] MEDEN T ([facility] Body height 62.50 [in_i] 62.50 [in_i] MEDENT ([facility] 5'2.50" Respiratory rate 14 /min 14 /min MEDENT ( [facility] Heart rate 82 /min 82 /min MEDENT ([facility] Body temperature 97.9 [degF] 97.9 [degF] MEDENT ([facility] Diastolic blood pressure 70 mm[Hg] 70 mm[Hg] MEDENT ([facility] Systolic blood pressure 124 mm[Hg] 124 mm[Hg] M EDENT ([facility] Oxygen saturation in Arterial blood by Pulse oximetry 97 % 97 % MEDENT ([facility] Body mass index (BMI) [Ratio] 26.1 kg/m2 26.1 k g/m2 MEDENT ([facility] Body weight 145.00 [lb_av] 145.00 [lb_av] MEDEN T ([facility] Body height 62.50 [in_i] 62.50 [in_i] MEDENT ([facility] 5'2.50" Respiratory rate 18 /min 18 /min MEDENT ( [facility] Heart rate 78 /min 78 /min MEDENT ([facility] Body temperature 97.8 [degF] 97.8 [degF] MEDENT ([facility] Diastolic blood pressure 68 mm[Hg] 68 mm[Hg] MEDENT ([facility] Systolic blood pressure 130 mm[Hg] 130 mm[Hg] [facility] Body mass index (BMI) [Ratio] 26.6 kg/m2 26.6 k g/m2 MEDENT ([facility]) Body height 63 [in_i] 63 [in_i] MEDENT ([facility]) 5'3" Body weight 150.00 [lb_av] 150.00 [lb_av] MEDEN T ([facility]) Body temperature 98.9 [degF] 98.9 [degF] MEDENT ([facility]) Oxygen saturation in Arterial blood by Pulse oximetry 92 % 92 % [facility] Respiratory rate 16 /min 16 /min MEDENT ( [facility]) Heart rate 84 /min 84 /min MEDENT ([facility]) Diastolic blood pressure 72 mm[Hg] 72 mm[Hg] [facility] Systolic blood pressure 138 mm[Hg] 138 mm[Hg] [facility] Body weight 68.040 kg 68.040 kg MEDENT ([facility], ) Body mass index (BMI) [Ratio] 26.6 kg/m2 26.6 k g/m2 MEDENT ([facility], ) Body weight 150.00 [lb_av] 150.00 [lb_av] MEDEN T ([facility], ) Body height 63 [in_i] 63 [in_i] MEDENT ([facility], ) 5'3" Oxygen saturation in Arterial blood by Pulse oximetry 98 % 98 % MEDENT ([facility] ([facility] [place]), ([facility]) Body mass index (BMI) [Ratio] 27.4 kg/m2 27.4 k g/m2 MEDENT ([facility] Body weight 152.00 [lb_av] 152.00 [lb_av] MEDEN T ([facility] Body height 62.50 [in_i] 62.50 [in_i] MEDENT ([facility] 5'2.50" Respiratory rate 16 /min 16 /min MEDENT ( [facility] Heart rate 72 /min 72 /min MEDENT ([facility] Body temperature 98.7 [degF] 98.7 [degF] MEDENT ([facility] Diastolic blood pressure 60 mm[Hg] 60 mm[Hg] MEDENT ([facility] Systolic blood pressure 102 mm[Hg] 102 mm[Hg] M EDENT ([facility] Oxygen saturation in Arterial blood by Pulse oximetry 94 % 94 % MEDENT ([facility] Body mass index (BMI) [Ratio] 26.8 kg/m2 26.8 k g/m2 MEDENT ([facility] Body weight 149.00 [lb_av] 149.00 [lb_av] MEDEN T ([facility] Body height 62.50 [in_i] 62.50 [in_i] MEDENT ([facility] 5'2.50" Respiratory rate 18 /min 18 /min MEDENT ( [facility] Heart rate 80 /min 80 /min MEDENT ([facility] Body temperature 98.0 [degF] 98.0 [degF] MEDENT ([facility] Diastolic blood pressure 60 mm[Hg] 60 mm[Hg] MEDENT ([facility] Systolic blood pressure 116 mm[Hg] 116 mm[Hg] M EDENT ([facility] Systolic blood pressure 127 mm[Hg] 127 mm[Hg] [facility] Body mass index (BMI) [Ratio] 25.7 kg/m2 25.7 k g/m2 [facility] Body height 63 [in_i] 63 [in_i] [facility] 5'3" Body weight 145.00 [lb_av] 145.00 [lb_av] MEDEN T ([facility]) Body temperature 98.4 [degF] 98.4 [degF] [facility] ([facility]) Oxygen saturation in Arterial blood by Pulse oximetry 93 % 93 % [facility] ([facility]) Heart rate 85 /min 85 /min [facility] ([facility]) Diastolic blood pressure 78 mm[Hg] 78 mm[Hg] [facility] ([facility]) Patient Treatment Plan of Care Planned Activity Planned Date Details Description Data Source (s) Tums Ultra 1000 1000 MG 12/16/2019 01:00:00 AM EDT [facility]) Alendronate Sodium 35 MG 11/30/2019 01:00:00 AM EDT [facility]) Calcium + D3 600-800 MG-UNIT 11/30/2019 01:00:00 AM EDT [facility]) Levothyroxine Sodium 75 MCG 11/30/2019 01:00:00 AM EDT [facility]) Omeprazole 40 MG 11/30/2019 01:00:00 AM EDT [facility]) Vitamin D3 5000 UNIT 11/30/2019 01:00:00 AM EDT [facility]) Acetaminophen-Codeine 300-30 MG 11/30/2019 01:00:00 AM EDT [facility]) Tylenol Extra Strength 500 MG 11/30/2019 01:00:00 AM EDT [place] ([facility])
[2020-04-04] MEDS ORDERED: MORPHINE 4 MG/ML 1ML VIAL/SYRINGE (J2270) IV ONE (15:45)
[2020-04-04] MEDS ORDERED: ONDANSETRON 4MG/2ML VIAL IV ONE (15:45)
--- NOTE | 2020-04-04 16:11 | REPVR ---
PROCEDURE INFORMATION: Exam: CT Head Without Contrast Exam date and time: 04/04/2020 3:59 PM Age: 84 years old Clinical indication: Injury or trauma; Fall; Blunt trauma (contusions or hematomas); Additional info: Fall injury; Trauma TECHNIQUE: Imaging protocol: Computed tomography of the head without contrast. Radiation optimization: All CT scans at this facility use at least one of these dose optimization techniques: automated exposure control; mA and/or kV adjustment per patient size (includes targeted exams where dose is matched to clinical indication); or iterative reconstruction. COMPARISON: CT Head without contrast 11/11/2019 3:16 PM FINDINGS: Brain: There is white matter lucency consistent with chronic microvascular disease. No evidence of acute infarct. No hemorrhage or extra-axial collection. Incidental small left frontal white matter calcification. Cerebral ventricles: No ventriculomegaly. Bones/joints: Unremarkable. No acute fracture. Paranasal sinuses: There is a small left maxillary sinus retention. No air-fluid levels. Mastoid air cells: There is a small amount of fluid in the mastoids, more extensive on the right. From prior scan. Soft tissues: There is left frontal extracranial scalp soft tissue swelling. IMPRESSION: 1. There is chronic microvascular disease. 2. No acute intracranial lesion or injury and no change from prior scan. Electronically signed by: Devyn Barriga On 04/04/2020 16:11:22 PM
--- NOTE | 2020-04-04 16:18 | REPVR ---
PROCEDURE INFORMATION: Exam: CT Cervical Spine Without Contrast Exam date and time: 04/04/2020 3:59 PM Age: 84 years old Clinical indication: Injury or trauma; Fall; Blunt trauma; Additional info: Fall injury; Trauma TECHNIQUE: Imaging protocol: Computed tomography images of the cervical spine without contrast. Radiation optimization: All CT scans at this facility use at least one of these dose optimization techniques: automated exposure control; mA and/or kV adjustment per patient size (includes targeted exams where dose is matched to clinical indication); or iterative reconstruction. COMPARISON: CT Spine,cervical w/o contrast 11/11/2019 3:16 PM FINDINGS: Bones/joints: There is no fracture of the cervical spine. Is minimal C7 anterolisthesis. Alignment is is normal. The vertebral bodies maintain their elements peer There is a severe T4 compression fracture with minimal retropulsion. This is described on a chest CT report dated 11/11/2019, there are no images available for direct comparison There is minimal compression of the superior endplate of T3. Discs/Spinal canal/Neural foramina: There is spondylosis and disc space narrowing from C3-C4 to C6-C7 with small posterior osteophytes is. This results in mild [id number] segmental central spinal stenosis at these levels. There is moderate to severe foraminal stenosis at these levels. Lungs: There is minimal paraseptal emphysema in the upper lobes. There is a calcis granuloma in the left upper lobe. Soft tissues: Unremarkable. IMPRESSION: 1. No fracture of the cervical spine. 2. Severe T4 and minimal compression fractures, probably chronic. Electronically signed by: Devyn Barriga On 04/04/2020 16:19:09 PM
[2020-04-04] MEDS ORDERED: NS 1,000 ML IV SCH (16:26)
[2020-04-04] MEDS ORDERED: propofoL 200 MG/20 ML VIAL IV PRN (16:30)
[2020-04-04] MEDS ORDERED: KETAMINE HCL 200 MG/20 ML VIAL IV ONE (16:30)
--- NOTE | 2020-04-04 16:31 | REP ---
INDICATION: fall injury; LUE pain. COMPARISON: None TECHNIQUE: AP and lateral FINDINGS: There is a proximal humeral fracture with slight impaction. The proximal humeral diaphysis appears to be of decreased bony density and I cannot rule out the possibility of a pathological fracture. IMPRESSION: Proximal humeral fracture and related finding as described above. <Electronically signed by Kiel Nash > 04/04/20 [id number]
--- NOTE | 2020-04-04 16:32 | REP ---
INDICATION: fall injury; LUE pain. COMPARISON: None FINDINGS: See impression IMPRESSION: There is no acute fracture, dislocation, subluxation, or joint effusion. <Electronically signed by Kiel Nash > 04/04/20 [id number]
--- NOTE | 2020-04-04 16:36 | REP ---
INDICATION: fall injury; LUE pain. COMPARISON: None. TECHNIQUE: Four views FINDINGS: There is a comminuted distal radial fracture with dorsal angulation and dorsal displacement. There is a concomitant distal ulnar fracture involving the ulnar styloid. IMPRESSION: Colles fracture <Electronically signed by Kiel Nash > 04/04/20 [id number]
--- NOTE | 2020-04-04 16:38 | REP ---
INDICATION: Syncope/near-syncope. COMPARISON: 05/11/2019 PA and lateral exam TECHNIQUE: Portable FINDINGS: The technique utilized in obtaining the radiograph has magnified the cardiac silhouette and accentuated the interstitial markings. The superior mediastinal structures are midline. The cardiac silhouette is enlarged. The diaphragmatic surfaces of the lungs are regular, and the costophrenic angles are clear. The pulmonary rubio are clear. The imaged osseous structures are intact. IMPRESSION: Mild cardiomegaly without evidence of acute cardiopulmonary disease. <Electronically signed by Kiel Nash > 04/04/20 [id number]
[2020-04-04 16:39] LABS: BASO # 0.1 10^3/uL (0.0-0.2); BASO % 0.7 % (0.0-1.0); EOS # 0.2 10^3/uL (0.0-0.5); EOS % 1.5 % (0.0-3.0); HEMATOCRIT 45.4 % (36.0-47.0); HEMOGLOBIN 14.5 g/dl (12.0-15.5); LYMPH # 1.5 10^3/uL (1.5-5.0); LYMPH % 15.3 % (24.0-44.0); MEAN CORPUSCULAR HEMOGLOBIN 31.9 pg (27.0-33.0); MEAN CORPUSCULAR HGB CONC 31.9 g/dl (32.0-36.5); MONO # 0.6 10^3/uL (0.0-0.8); MONO % 5.9 % (0.0-5.0); NEUTROPHILS # 7.6 10^3/uL (1.5-8.5); PLATELET COUNT, AUTOMATED 281 10^3/uL (150-450); RED BLOOD COUNT 4.54 10^6/uL (4.00-5.40)
--- OUTSIDE RECORDS SUMMARY | 2020-04-04 16:39 | CCD ---
Author Author [facility] Organization [facility] Address Unknown Phone Unavailable Care Team Providers Care Brick Shader Name Role Phone Barraclough, Lacey PA Unavailable [...] B Alisson JEFFERSON Unavailable Unavailable Fish, Naun Visnon MD Unavailable Unavailable Fish, Naun Vinson MD [...] ACACIA PA Unavailable Unavailable WATSON, M JANY TILE DESIGNER Unavailable Unavailable WATSON, M JANY TILE DESIGNER Unavailable Unavailable WATSON, M JANY TILE DESIGNER Unavailable Unavailable WATSON, M JANY TILE DESIGNER Unavailable Unavailable WATSON, M JANY TILE DESIGNER Unavailable Unavailable WATSON, M JANY TILE DESIGNER Unavailable Unavailable WATSON, M JANY TILE DESIGNER Unavailable Unavailable WATSON, M JANY TILE DESIGNER Unavailable Unavailable WATSON, M JANY TILE DESIGNER Unavailable Unavailable WATSON, M JANY TILE DESIGNER Unavailable Unavailable WATSON, M JANY TILE DESIGNER Unavailable Unavailable WATSON, M JANY TILE DESIGNER Unavailable Unavailable WATSON, M JANY TILE DESIGNER Unavailable Unavailable WATSON, M JANY TILE DESIGNER Unavailable Unavailable WATSON, M JANY TILE DESIGNER Unavailable Unavailable WATSON, M JANY TILE DESIGNER Unavailable Unavailable WATSON, M JANY TILE DESIGNER Unavailable Unavailable WATSON, M JANY TILE DESIGNER Unavailable Unavailable WATSON, M JANY TILE DESIGNER Unavailable Unavailable WATSON, M JANY TILE DESIGNER Unavailable Unavailable WATSON, M JANY TILE DESIGNER Unavailable Unavailable WATSON, M JANY TILE DESIGNER Unavailable Unavailable WATSON, M JANY TILE DESIGNER Unavailable Unavailable WATSON, M JANY TILE DESIGNER Unavailable Unavailable WATSON, M JANY TILE DESIGNER Unavailable Unavailable WATSON, M JANY TILE DESIGNER Unavailable Unavailable WATSON, M JANY TILE DESIGNER Unavailable Unavailable WATSON, M JANY TILE DESIGNER Unavailable Unavailable WATSON, M JANY TILE DESIGNER Unavailable Unavailable WATSON, M JANY TILE DESIGNER Unavailable Unavailable WATSON, M JANY TILE DESIGNER Unavailable Unavailable WATSON, M JANY TILE DESIGNER Unavailable Unavailable WATSON, M JANY TILE DESIGNER Unavailable Unavailable WATSON, M JANY TILE DESIGNER Unavailable Unavailable WATSON, M JANY TILE DESIGNER Unavailable Unavailable WATSON, M JANY TILE DESIGNER Unavailable Unavailable WATSON, M JANY TILE DESIGNER Unavailable Unavailable WATSON, M JANY TILE DESIGNER Unavailable Unavailable WATSON, M JANY TILE DESIGNER Unavailable Unavailable WATSON, M JANY TILE DESIGNER Unavailable Unavailable WATSON, M JANY TILE DESIGNER Unavailable Unavailable WATSON, M JANY TILE DESIGNER Unavailable Unavailable WATSON, M JANY TILE DESIGNER Unavailable Unavailable WATSON, M JANY TILE DESIGNER Unavailable Unavailable Beau WATSON JANY TILE DESIGNER Unavailable Unavailable WTASON, M JANY TILE DESIGNER Unavailable Unavailable WATSON, M JANY TILE DESIGNER Unavailable Unavailable WATSON, M JANY TILE DESIGNER Unavailable Unavailable WATSON, M JANY TILE DESIGNER Unavailable Unavailable Beau WATSON JANY TILE DESIGNER Unavailable Unavailable WATSON, M JANY TILE DESIGNER Unavailable Unavailable WATSON, M JANY TILE DESIGNER Unavailable Unavailable WATSON, Beau JANY TILE DESIGNER Unavailable Unavailable WATSON, M JANY TILE DESIGNER Unavailable Unavailable WATSON, M JANY TILE DESIGNER Unavailable Unavailable WATSON, Beau JANY TILE DESIGNER Unavailable Unavailable Beau WATSONE TILE DESIGNER Unavailable Unavailable WATSON, Beau JANY TILE DESIGNER Unavailable Unavailable MD AMBREEN ZHAO Unavailable Unavailable Verbeck Jr, [place] Harish PA Unavailable Unavailable Verbeck Jr, [place] Harish PA Unavailable Unavailable Verbeck Jr, Joel Harish PA Unavailable Unavailable Verbeck Jr, [place] Harish PA Unavailable Unavailable Verbeck Jr, [place] Harish PA Unavailable Unavailable Verbeck Jr, Joel Harish PA Unavailable Unavailable Verbeck Jr, [place] Harish PA Unavailable Unavailable Verbeck Jr, [place] Harish PA Unavailable Unavailable Verbeck Jr, [place] Harish PA Unavailable Unavailable Verbeck Jr, Joel Harish PA Unavailable Unavailable Verbeck Jr, Joel Harish PA Unavailable Unavailable Verbeck Jr, [place] Harish PA Unavailable Unavailable Verbeck Jr, [place] Harish PA Unavailable Unavailable Verbeck Jr, Joel Harish PA Unavailable Unavailable Verbeck Jr, [place] Harish PA Unavailable Unavailable Verbeck Jr, [place] Harish PA Unavailable Unavailable Verbeck Jr, Joel Harish PA Unavailable Unavailable Verbeck Jr, [place] Harish PA Unavailable Unavailable Verbeck Jr, [place] Harish PA Unavailable Unavailable Verbeck Jr, [place] Harish PA Unavailable Unavailable Verbeck Jr, [place] Harish PA Unavailable Unavailable Verbeck Jr, Joel Harish PA Unavailable Unavailable Verbeck Jr, [place] Harish PA Unavailable Unavailable Verbeck Jr, [place] Harish PA Unavailable Unavailable Verbeck Jr, [place] Harish PA Unavailable Unavailable Verbeck Jr, [place] Harish PA Unavailable Unavailable Verbeck Jr, [place] Harish PA Unavailable Unavailable Verbeck Jr, [place] Harish PA Unavailable Unavailable Verbeck Jr, Joel Harish PA Unavailable Unavailable Verbeck Jr, [place] Harish PA Unavailable Unavailable Verbeck Jr, Joel Harish PA Unavailable Unavailable Verbeck Jr, [place] Harish PA Unavailable Unavailable Verbeck Jr, [place] Harish PA Unavailable Unavailable Verbeck Jr, [place] Harish PA Unavailable Unavailable Verbeck Jr, [place] Harish PA Unavailable Unavailable Verbeck Jr, [place] Harish PA Unavailable Unavailable Fish, J Nagi [...] Fish, J Nagi Unavailable Unavailable Fish, J Angi Unavailable Unavailable Fish, J Nagi Unavailable Unavailable [...] Unavailable Unavailable NANCY STEPHENS MD Unavailable Unavailable NANYC STEPHENS MD Unavailable Unavailable NANCY STEPHENS MD [...] is protected by Article 27-F of the [facility] Public Health law. If you continue you may have access to information: Regarding HIV / AIDS; Provided by facilities licensed or operated by the [facility] Office of Mental Health; or Provided by the [facility] Office for People With Developmental Disabilities. If such information is present, then the following [facility] mandated warning applies: This information has been [...] law may result in a fine or half-way sentence or both. A general authorization for the release of medical or other information is NOT sufficient authorization for further disc losure. Allergies and Adverse Reactions Type Description Substance Reaction Status Data Source(s ) Penicillin Penicillin Penicillin active NETSMART ([facility]) Family History Family Member Name Family Member Gender Family Member Status Date o f Status Description Data Source(s) Unknown Unknown Problem MEDENT ([employer]) Encounters Encounter Providers Location Date Indications Data Source(s ) Office Visit Attender: MARIA INES KHAN Physical Therapy 01/27/2020 12:00:00 PM EST MEDENT ([facility]) Outpatient Attender: Nagi Harden [place] [facility] 01/11/2020 01:30:0 0 PM EDT MED[facility] ([facility] Outpatient Attender: Lacey KHAN [place] 12/21/2019 01:00:00 PM EDT [facility] Office Visit Attender: MARIA INES KHAN Physical Therapy 12/16/2019 03:00:00 PM EDT MEDENT ([facility]) Outpatient Attender: Lacey perdoza 12/16/2019 01:00:00 PM EDT MED[facility] ([facility] 11/30/2019 01:00:00 AM EDT - 020 09:50:24 AM EDT NETSMART ([facility]) Outpatient Attender: Lacey pedroza 11/23/2019 01:00:00 PM EDT MED[facility] ([facility] Office Visit Attender: MARIA INES KHAN Physical Therapy 11/19/2019 01:45:00 PM EDT MEDENT ([facility]) Outpatient Attender: Lacey KHAN [place] [facility] 11/16/2019 02:40:00 PM EDT MED[facility] ([facility] Office Visit Attender: NANCY STEPHENS MD Physical Therapy 09:15:00 AM EDT MEDENT ([facility]) Outpatient Attender: Nagi Harden [place] [facility] 11/09/2019 03:00:0 0 PM EDT MEDENT ([facility] Emergency Attender: NANCY STEPHENS MD Physical Therapy 04:47:00 PM EDT MEDENT ([facility]) Outpatient Attender: Nagi Harden [place] [facility] 09/02/2019 01:00:0 0 PM EDT MEDENT ([facility] Outpatient Referrer: Nagi Harden 08/02/2019 05:43:00 AM E DT [facility] Outpatient Attender: Nagi Harden [place] [facility] 07/29/2019 02:30:0 0 PM EDT MEDENT ([facility] Outpatient Attender: Lacey KHAN [place] 07/21/2019 10:40:00 AM EDT MED[facility] ([facility] Outpatient Attender: Alisson Harden MD Physical Therapy 06/23 11:00:00 AM EDT MEDENT ([facility]) Outpatient Referrer: Nagi Harden 06/24/2019 04:20:00 AM E DT [facility] Outpatient Referrer: Nagi Harden 06/17/2019 03:15:00 PM E DT [facility] Outpatient Referrer: Nagi Harden 06/17/2019 03:14:00 PM E DT [facility] Outpatient Referrer: Nagi Harden 06/17/2019 03:10:00 PM E DT [facility] Outpatient Attender: Nagializa Harden [place] [facility] 06/17/2019 01:45:0 0 PM EDT MEDENT ([facility] Outpatient Attender: Nagializa Harden [place] [facility] 05/27/2019 01:45:0 0 PM EST MEDENT ([facility] Outpatient Referrer: Nagi Harden 05/26/2019 11:34:[address] [facility] Outpatient Referrer: Nagi Harden 05/19/2019 12:28:[address] [facility] Outpatient Referrer: Nagi Harden 05/18/2019 04:20:[address] [facility] Outpatient Attender: Nagi Harden [place] [facility] 05/13/2019 02:00:0 0 PM EST MEDENT ([facility] Outpatient Referrer: Nagi Harden 05/12/2019 10:59:[address] [facility] Outpatient Attender: ACACIA verdugo 05/09/2019 01:50:00 PM EST MEDENT ([facility]) Outpatient Referrer: Nagi Harden 05/07/2019 12:19:00 PM [...] [facility] Outpatient Attender: Nagi Harden [place] [facility] 04/29/2019 10:15:0 0 AM EST MEDENT ([facility] Outpatient Attender: Harish Hannah Jr [place] [facility] 09:00:00 AM EST MED[facility] ([facility] Outpatient Attender: Harish Hannah Jr [place] [facility] 02:15:00 PM EST MED[facility] ([facility] Outpatient Attender: JANY WATSON NP [facility] 02/12 09:20:00 AM EST MEDENT ([facility] Outpatient Attender: MARIA INES shultz 02/10/2019 02:35:00 PM EST MED[facility] ([facility] Immunizations Vaccine Date Status Description Data Source(s) New in 2012. IIV4 01/11/2020 01:50:00 PM EDT completed [facility] ([facility] Medications Medication Brand Name Start Date Product Form Dose Route Admi nistrative Instructions Pharmacy Instructions Status Indications Reaction Description Data Source(s) Tums Ultra 1000 1000 MG Tums Ultra 1000 12/16/2019 01:00:00 AM EDT completed NETSMART ([facility]) Hydroxyzine Hydrochloride 25 MG Oral Tablet Hydroxyzine HCL 12/16/2019 12:00:00 AM EDT ORAL completed MEDENT ([facility] Calcium + D3 600-800 MG-UNIT Calcium + D3 11/30/2019 01:00:00 AM EDT completed NETSMART ([facility]) Alendronate Sodium 35 MG Alendronate Sodium 11/30/2019 01:00:00 AM EDT completed NETSMART ([facility]) Levothyroxine Sodium 75 MCG Levothyroxine Sodium 11/30/2019 01:00:0 0 AM EDT 1.0 {tablet} completed NETSMART ([facility]) Omeprazole 40 MG Omeprazole 11/30/2019 01:00:00 AM EDT completed NETSMART ([facility] ) Vitamin D3 5000 UNIT Vitamin D3 11/30/2019 01:00:00 AM EDT completed NETSMART ([facility]) Acetaminophen-Codeine 300-30 MG Acetaminophen-Codeine 2019 01:00:00 AM EDT 1.0 {tablet} completed N ETSMART ([facility]) Tylenol Extra Strength 500 MG Tylenol Extra Strength 11/30/2019 01:00:00 AM EDT completed NETSMA RT ([facility]) Acetaminophen 300 MG / Codeine Phosphate 30 MG Oral Ta blet Acetaminophen-Codeine #3 11/19/2019 12:00:00 AM EDT active MEDENT ([facility] tramadol hydrochloride 50 MG Oral Tablet Tramadol HCL 11/16/2019 12:00:00 AM EDT ORAL completed MEDENT ([facility] Cephalexin 500 MG Oral Capsule Cephalexin 07/21/2019 12:00:00 AM EDT completed MEDENT ([facility] Doxycycline Monohydrate 100 MG Oral Capsule Doxycycline [facility] hydrate 05/09/2019 12:00:00 AM EST ORAL active M EDENT ([facility]) Hydrochlorothiazide 12.5 MG Oral Capsule Hydrochlorothiazide 03/19/2019 12:00:00 AM EST ORAL completed MEDENT ([facility] 200 ACTUAT Albuterol 0.09 MG/ACTUAT Metered Dose Inhaler [Pr oAir] Proair HFA 02/10/2019 12:00:00 AM EST RESPIRATORY active MEDENT ([facility]) Prednisone 20 MG Oral Tablet Prednisone 02/10/2019 12:00:00 AM EST completed MEDENT ([facility]) Doxycycline Monohydrate 100 MG Oral Tablet Doxycycline Monoh ydrate 02/10/2019 12:00:00 AM EST ORAL completed MEDENT ([facility]) Insurance Providers Payer name Policy type / Coverage type Policy ID Covered alliance party ID Covered alliance party's relationship to diaz Policy Diaz Plan Information EMEDNY [id number] SP [id number] MEDICARE [id number] SP [id number] MEDICAID M [id number] S [id number] MEDICARE C [id number] S [id number] [id number] MEDICAID [id number] SP [id number] MEDICARE C [id number] S [id number] J46 MEDICAID M [id number] S [id number] MEDICARE [id number] SP [id number] A MEDICARE [id number] SP [id number] [facility] [id number] [address] [id number] MEDICARE [id number] SP [id number] [place] Part [place] [id number] Self [id number] [place] Medicare Primary [id number] Self [id number] [place] [id number] Self [id number] [place] Primary [id number] Self [id number] [place] B [id number] Self [id number] [place] Medicare Primary [id number] Self [id number] [place] [id number] Self [id number] [place] Primary [id number] Self [id number] [place] [id number] Self [id number] [place] Primary [id number] Self [id number] Medicaid Medigap Part B [id number] Self [id number] Medicare (Part B) Medicare Primary [id number] Self [id number] Medicaid Medigap Part B [id number] Self [id number] Medicare (Part B) Medicare Primary [id number] Self [id number] MEDICARE C [id number] S [id number] [place] Part [place] [id number] Self [id number] Medicare [place] Primary [id number] Self [id number] [place] [id number] Self [id number] [place] Primary [id number] Self [id number] Medicaid Medicaid [id number] Self [id number] Medicare Medicare Primary [id number] Self 07 [id number] Medicaid Medicaid [id number] Self [id number] Medicare Medicare Primary [id number] Self 07 [id number] Medicaid Medicaid [id number] Self [id number] Medicare Medicare Primary [id number] Self [id number] Medicaid Medigap Part B [id number] Self [id number] Medicare (Part B) Medicare Primary [id number] Self [id number] Medicaid Medigap Part B [id number] Self [id number] Medicare (Part B) Medicare Primary [id number] Self [id number] Medicaid Medicaid [id number] Self [id number] Medicare Medicare Primary [id number] Self 07 [id number] MEDICAID [id number] SP [id number] MEDICARE [id number] SP [id number] A Medicaid Medicaid [id number] Self [id number] Medicare Medicare Primary [id number] Self [id number] Medicaid Medicaid [id number] Self [id number] Medicare Medicare Primary [id number] Self 07 [id number] MEDICARE C [id number] S [id number] A Medicaid Medicaid Self Medicare Medicare Primary Self MEDICAID [id number] SP [id number] [place] Primary Self Medicaid Medigap Part B Self Medicare Medicare Primary Self MEDICAID [id number] SP [id number] [place] Part B Self Medicare [facility] Medicare Primary Self MEDICARE [id number] SP [id number] A [id number] A [id number] Problems, Conditions, and Diagnoses Code Display Name Description Problem Type Effective Dates Data Source(s) 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 nervous system involvement Problem 11/16/2019 01:00:00 AM EDT NETSMART ([facility]) Z91.81 History of falling History of falling Problem 0 01:00:00 AM EDT NETSMART ([facility]) Z60.2 Problems related to living alone Problems related to l iving alone Problem 11/16/2019 01:00:00 AM EDT NETSMART ([facility] ) Z79.83 longterm (current) use of bisphosphonat es longterm (current) use of bisphosphonates Problem 11/16/2019 01:00:00 AM EDT NETSMART ([facility]) Z87.891 Personal history of nicotine dependence Personal history of nicotine dependence Problem 11/16/2019 01:00:00 AM EDT NETSMART ([facility]) M48.54XD Collapsed vertebra, not else where classified, thoracic region, subsequent encounter for fracture with routine healing Collapsed vertebra, not elsewhere classified, thoracic region, subsequent encounter for fracture with routine healing Problem 11/16/2019 01:00:00 AM EDT NETSMART ([facility]) [id number] Thyroid nodule Thyroid nodule Problem 06/24/2019 12:00: 00 AM EDT MEDENT ([facility]) Surgeries/Procedures Procedure Description Date Indications Data Source(s) RADEX SPINE THORACIC 2 VIEWS 01/27/2020 12:00:00 AM ES T MEDENT ([facility] RADEX SPINE LUMBOSACRAL 2/3 VIEWS 01/27/2020 12:00:00 AM EST MEDENT ([facility]) RADEX SPINE THORACIC 2 VIEWS 12/16/2019 12:00:00 AM ED T MEDENT ([facility]) RADEX SPINE LUMBOSACRAL 2/3 VIEWS 12/16/2019 12:00:00 AM EDT MEDENT ([facility]) RADEX SPINE THORACIC 2 VIEWS 11/19/2019 12:00:00 AM ED T MEDENT ([facility]) RADEX SPINE LUMBOSACRAL 2/3 VIEWS 11/19/2019 12:00:00 AM EDT MEDENT ([facility]) CLTX VRT BDY FX W/O MANJ REQ&W/CSTING/BRACING 11/12/19 12:00:00 AM EDT MEDENT ([facility]) LARYNGOSCOPY FLEXIBLE FIBEROPTIC DIAGNOSTIC 05/05/2019 12:00:00 AM EST MEDENT ([facility] ) Results ID Date Data Source [id number] 01/11/2020 02:51:00 PM EDT MEDENT ([facility] Name Value Range Interpretation Code Description Data Dana rce(s) Supporting Document(s) Erythrocyte sedimentation rate by Westergren method 15 0-20 MEDENT ([facility] ID Date Data Source [id number] 01/11/2020 02:50:00 PM EDT MEDENT ([facility] Name Value Range Interpretation Code Description Data Dnaa rce(s) Supporting Document(s) Calcidiol [Mass/volume] in Serum or Plasma 46.6 ng/mL 30.0-100.0 MEDENT ([facility] Vitamin D deficiency has been defined by the [place] of Medicine and an Endocrine Society practice guideline as a level of serum 25-OH vitamin D less than 20 ng/mL (1,2). The Endocrine Society went on to further define vitamin D insufficiency as a level between 21 and 29 ng/mL (2). 1. IOM ([place] of Medicine). 2010. Di etary reference intakes for calcium and D. [place]: The National Academies Press. 2. Ashish PADRON, Tricia REYNAGA, Wilfred mueller MALLOY, et al. Evaluation, treatment, and prevention of vitamin D deficiency: an Endocrine Society clinical practice guideline. JCEM. 2010; 96(8):1911-30. ID Date Data Source [id number] 01/11/2020 02:48:00 PM EDT MEDENT ([facility] Name Value Range Interpretation Code Description Data Dana rce(s) Supporting Document(s) Trig 149 mg/dL 40-200 MED[facility] ([facility] NORMAL RANGES [...] HCT IS 5% LESS SOURCE FOR DATA: The [employer] DYN 1800 OPERATION MANUAL( AUTOMATED BLOOD COUNTS [...] HCT IS 5% LESS SOURCE FOR DATA: [employer] 1800 OPERATION MANUAL( AUTOMATED BLOOD COUNTS AND [...] YEARS EXCLUSIVE. LDL_C 122 Calc 75-129 MARY ([facility] NORMAL RANGES Age WBC [...] HCT IS 5% LESS SOURCE FOR DATA: [employer] 1800 OPERATION MANUAL( AUTOMATED BLOOD COUNTS AND [...] 2-19 YEARS EXCLUSIVE. Cho/HDL Ratio 3.2 CALC happin! ([facility] NORMAL RANGES Age WBC RBC HGB [...] HCT IS 5% LESS SOURCE FOR DATA: [employer] 1800 OPERATION MANUAL( AUTOMATED BLOOD COUNTS AND [...] HCT IS 5% LESS SOURCE FOR DATA: [employer] 1800 OPERATION MANUAL( AUTOMATED BLOOD COUNTS AND [...] 2-19 YEARS EXCLUSIVE. ID Date Data Source [id number] 01/11/2020 02:48:00 PM EDT MEDENT ([facility] Name Value Range Interpretation Code Description Data Dana rce(s) Supporting Document(s) Glu 91 mg/dL 70-110 [facility] ([facility] NORMAL RANGES Age WBC [...] HCT IS 5% LESS SOURCE FOR DATA: [employer] 1800 OPERATION MANUAL( AUTOMATED BLOOD COUNTS AND [...] YEARS EXCLUSIVE. BUN/Creatinine Ratio 25.0 CALC MEDENT ([facility] NORMAL RANGES Age [...] HCT IS 5% LESS SOURCE FOR DATA: [employer] 1800 OPERATION MANUAL( AUTOMATED BLOOD COUNTS AND [...] 2-19 YEARS EXCLUSIVE. BUN 19 mg/dL 8-23 [facility] ([facility] NORMAL RANGES [...] HCT IS 5% LESS SOURCE FOR DATA: The [employer] DYN 1800 OPERATION MANUAL( AUTOMATED BLOOD COUNTS [...] 2-19 YEARS EXCLUSIVE. K 4.6 mmol/L 3.5-5.1 [facility] NORMAL [...] HCT IS 5% LESS SOURCE FOR DATA: [employer] 1800 OPERATION MANUAL( AUTOMATED BLOOD COUNTS AND [...] HCT IS 5% LESS SOURCE FOR DATA: [employer] 1800 OPERATION MANUAL( AUTOMATED BLOOD COUNTS AND [...] 2-19 YEARS EXCLUSIVE. CA 9.2 mg/dL 8.6-10.2 [facility] NORMAL [...] HCT IS 5% LESS SOURCE FOR DATA: [employer] 1800 OPERATION MANUAL( AUTOMATED BLOOD COUNTS AND [...] 2-19 YEARS EXCLUSIVE. Co2 27.0 mmol/L 22.0-29.0 [facility] NORMAL RANGES Age WBC RBC [...] HCT IS 5% LESS SOURCE FOR DATA: [employer] 1800 OPERATION MANUAL( AUTOMATED BLOOD COUNTS AND [...] HCT IS 5% LESS SOURCE FOR DATA: [employer] 1800 OPERATION MANUAL( AUTOMATED BLOOD COUNTS AND [...] HCT IS 5% LESS SOURCE FOR DATA: [employer] 1800 OPERATION MANUAL( AUTOMATED BLOOD COUNTS AND [...] HCT IS 5% LESS SOURCE FOR DATA: [employer] 1800 OPERATION MANUAL( AUTOMATED BLOOD COUNTS AND [...] 2-19 YEARS EXCLUSIVE. Alb 3.9 g/dL 3.4-4.8 [facility] ([facility] NORMAL RANGES [...] HCT IS 5% LESS SOURCE FOR DATA: [employer] 1800 OPERATION MANUAL( AUTOMATED BLOOD COUNTS AND [...] HCT IS 5% LESS SOURCE FOR DATA: [employer] 1800 OPERATION MANUAL( AUTOMATED BLOOD COUNTS AND [...] HCT IS 5% LESS SOURCE FOR DATA: The [employer] DYN 1800 OPERATION MANUAL( AUTOMATED BLOOD COUNTS [...] 2-19 YEARS EXCLUSIVE. Alp 101.7 U/L 35-129 [facility] ([facility] NORMAL RANGES [...] HCT IS 5% LESS SOURCE FOR DATA: [employer] 1800 OPERATION MANUAL( AUTOMATED BLOOD COUNTS AND [...] 2-19 YEARS EXCLUSIVE. Tbili 0.08 mg/dL 0.0-1.2 [facility] ([facility] NORMAL RANGES [...] HCT IS 5% LESS SOURCE FOR DATA: [employer] 1800 OPERATION MANUAL( AUTOMATED BLOOD COUNTS AND [...] HCT IS 5% LESS SOURCE FOR DATA: [employer] 1800 OPERATION MANUAL( AUTOMATED BLOOD COUNTS AND [...] YEARS EXCLUSIVE. Osmolality-Calculated 284.1 CALC MED ENT ([facility] NORMAL RANGES Age [...] HCT IS 5% LESS SOURCE FOR DATA: [employer] 1800 OPERATION MANUAL( AUTOMATED BLOOD COUNTS AND [...] HCT IS 5% LESS SOURCE FOR DATA: [employer] 1800 OPERATION MANUAL( AUTOMATED BLOOD COUNTS AND [...] HCT IS 5% LESS SOURCE FOR DATA: [employer] 1800 OPERATION MANUAL( AUTOMATED BLOOD COUNTS AND [...] INDIVIDUALA AGED 2-19 YEARS EXCLUSIVE. eGFR Non-Afr. Citizen Of [place] 68 # MEDENT ([facility] NORMAL RANGES Age [...] HCT IS 5% LESS SOURCE FOR DATA: [employer] 1800 OPERATION MANUAL( AUTOMATED BLOOD COUNTS AND [...] 2-19 YEARS EXCLUSIVE. ID Date Data Source [id number] 01/11/2020 02:48:00 PM EDT [facility] Name Value Range Interpretation Code Description Data Dana rce(s) Supporting Document(s) Creatine kinase [Enzymatic activity/volume] in Serum or Plasma 34 U /L 26-192 [facility] ([facility] NORMAL RANGES Age WBC [...] HCT IS 5% LESS SOURCE FOR DATA: [employer]s 1800 OPERATION MANUAL( AUTOMATED BLOOD COUNTS AND [...] 2-19 YEARS EXCLUSIVE. ID Date Data Source [id number] 01/11/2020 02:48:00 PM EDT MEDENT ([facility] Name Value Range Interpretation Code Description Data Dana rce(s) Supporting Document(s) RBC 4.07 10E6/uL 4.20-6.30 Below low normal [facility] NORMAL RANGES Age WBC [...] HCT IS 5% LESS SOURCE FOR DATA: [employer] 1800 OPERATION MANUAL( AUTOMATED BLOOD COUNTS AND [...] 2-19 YEARS EXCLUSIVE. WBC 6.7 10E3/uL 4.1-10.9 [facility] ([facility] NORMAL RANGES Age WBC RBC [...] HCT IS 5% LESS SOURCE FOR DATA: [employer]s 1800 OPERATION MANUAL( AUTOMATED BLOOD COUNTS AND [...] HCT IS 5% LESS SOURCE FOR DATA: [employer]s 1800 OPERATION MANUAL( AUTOMATED BLOOD COUNTS AND [...] 2-19 YEARS EXCLUSIVE. HGB 13.7 g/dL 12.0-18.0 [facility] NORMAL RANGES Age WBC [...] HCT IS 5% LESS SOURCE FOR DATA: [employer]s 1800 OPERATION MANUAL( AUTOMATED BLOOD COUNTS AND [...] MCV 98.8 fL 80.0-97.0 Above high normal [facility] ([facility] NORMAL RANGES [...] HCT IS 5% LESS SOURCE FOR DATA: [employer]s 1800 OPERATION MANUAL( AUTOMATED BLOOD COUNTS AND [...] HCT IS 5% LESS SOURCE FOR DATA: [employer]s 1800 OPERATION MANUAL( AUTOMATED BLOOD COUNTS AND [...] MCH 33.7 pg 26.0-32.0 Above high normal [facility] ([facility] NORMAL RANGES Age [...] HCT IS 5% LESS SOURCE FOR DATA: [employer] 1800 OPERATION MANUAL( AUTOMATED BLOOD COUNTS AND [...] 2-19 YEARS EXCLUSIVE. Lym% 27.7 % 10.0-58.5 [facility] ([facility] NORMAL [...] HCT IS 5% LESS SOURCE FOR DATA: [employer]s 1800 OPERATION MANUAL( AUTOMATED BLOOD COUNTS AND [...] HCT IS 5% LESS SOURCE FOR DATA: [employer] 1800 OPERATION MANUAL( AUTOMATED BLOOD COUNTS AND [...] 2-19 YEARS EXCLUSIVE. PLT 311 10E3/uL 140-440 [facility] ([facility] NORMAL RANGES Age WBC RBC [...] HCT IS 5% LESS SOURCE FOR DATA: [employer] DYN 1800 OPERATION MANUAL( AUTOMATED BLOOD COUNTS [...] 2-19 YEARS EXCLUSIVE. Neut% 65.3 % 37.0-92.0 [facility] ([facility] NORMAL RANGES [...] HCT IS 5% LESS SOURCE FOR DATA: [employer]s 1800 OPERATION MANUAL( AUTOMATED BLOOD COUNTS AND [...] HCT IS 5% LESS SOURCE FOR DATA: [employer]s 1800 OPERATION MANUAL( AUTOMATED BLOOD COUNTS AND [...] 2-19 YEARS EXCLUSIVE. Lym# 1.9 10E3/uL 0.6-4.1 [facility] ([facility] NORMAL RANGES Age WBC RBC [...] HCT IS 5% LESS SOURCE FOR DATA: [employer] 1800 OPERATION MANUAL( AUTOMATED BLOOD COUNTS AND [...] 2-19 YEARS EXCLUSIVE. Neut# 4.3 % 2.0-7.8 [facility] ([facility] NORMAL RANGES [...] HCT IS 5% LESS SOURCE FOR DATA: [employer] 1800 OPERATION MANUAL( AUTOMATED BLOOD COUNTS AND [...] 2-19 YEARS EXCLUSIVE. MPV 11.1 fL 9.0-13.0 [facility] ([facility] NORMAL RANGES Age WBC [...] HCT IS 5% LESS SOURCE FOR DATA: [employer] 1800 OPERATION MANUAL( AUTOMATED BLOOD COUNTS AND [...] 2-19 YEARS EXCLUSIVE. MXD# 0.5 10E3/uL 0.0-1.8 [facility] ([facility] NORMAL RANGES Age WBC RBC HGB [...] HCT IS 5% LESS SOURCE FOR DATA: [employer] 1800 OPERATION MANUAL( AUTOMATED BLOOD COUNTS AND [...] 2-19 YEARS EXCLUSIVE. ID Date Data Source [id number] 01/11/2020 02:47:00 PM EDT MEDENT ([facility] Name Value Range Interpretation Code Description Data Dana rce(s) Supporting Document(s) Thyrotropin [Units/volume] in Serum or Plasma 4.097 ulU/mL 0.60-4.8 [facility] ([facility] ID Date Data Source [id number] 11/11/2019 03:38:00 PM EDT MEDENT ([facility] Name Value Range Interpretation Code Description Data Dana rce(s) Supporting Document(s) Lipoprotein lipase [Enzymatic activity/volume] in Serum or P lasma 100 U/L 73-393 Normal (applies to non-numeric results) MEDENT ([facility] <content>note:<nlbl:[email or web address]> </content>
<content></content> ID Date Data Source [id number] 11/11/2019 03:38:00 PM EDT MEDENT ([facility] Name Value Range Interpretation Code Description Data Dana rce(s) Supporting Document(s) Glucose, Fasting 79 mg/dL 70-100 Normal (applies to non-numeric results) MEDENT ([facility] Blood Urea Nitrogen 15 mg/dL 7-18 Normal (applies to non-nume fiorella results) MEDENT ([facility] Glomerular Filtration Rate Laboratory test result Normal (applies to non- numeric results) [facility] ([facility] ) <content>Units are mL/min/1.73 m2</content>
<content></content>
<content>Chronic Kidney Disease Staging per NKF:</content>
<content></content>
<content>Stage I & II GFR >=60 Normal to Mildly Decreased</content>
<content>Stage III GFR 30-59 Moderately Decreased</content>
<content>Stage IV GFR 15-29 Severely Decreased</content>
<content>Stage V GFR <15 Very Little GFR Left</content>
<content>ESRD GFR <15 on SUPPLY SERVICE WORKER</content>
<content></content> Creatinine For GFR 0.71 mg/dL 0.55-1.30 Normal (applies to non -numeric results) [facility] ([facility] Sodium Level 139 meq/L 136-145 Normal (applies to non-numeric res ults) [facility] ([facility] Carbon Dioxide Level 30 meq/L 21-32 Normal (applies to non-num thu results) MEDENT ([facility] Chloride Level 108 meq/L 98-107 Above high normal MED ENT ([facility] Potassium Serum 3.8 meq/L 3.5-5.1 Normal (applies to non-numeric results) MEDENT ([facility] Anion Gap 1 meq/L 8-16 Below low normal [facility] ( [facility] Calcium Level 8.8 mg/dL 8.8-10.2 Normal (applies to non-numeric re sults) MEDENT ([facility] ID Date Data Source [id number] 11/11/2019 03:38:00 PM EDT [facility] ([facility] Name Value Range Interpretation Code Description Data Dana rce(s) Supporting Document(s) Alt/SGPT 17 U/L 12-78 Normal (applies to non-numeric resul ts) MEDENT ([facility] Ast/Sgot 15 U/L 7-37 Normal (applies to non-numeric resul ts) MEDENT ([facility] Alkaline Phosphatase 112 U/L 45-117 Normal (applies to non-num thu results) [facility]ENT ([facility] Total Protein 6.7 GM/DL 6.4-8.2 Normal (applies to non-numeric re sults) MEDENT ([facility] Bilirubin,Total 0.3 mg/dL 0.2-1.0 Normal (applies to non-numeric results) MEDENT ([facility] Bilirubin,Direct Laboratory test result 0.0-0.2 Normal ( applies to non-numeric results) MEDENT ([facility] ) Albumin/Globulin Ratio 1.1 1.2-2.2 Below low normal [facility] ([facility] Albumin 3.5 GM/DL 3.2-5.2 Normal (applies to non-numeric resul ts) [facility] ([facility] ID Date Data Source [id number] 11/11/2019 03:38:00 PM EDT [facility] ([facility] Name Value Range Interpretation Code Description Data Dana rce(s) Supporting Document(s) CK-MB Value Mass Laboratory test result Normal ( applies to non-numeric results) [facility] ([facility] CPK Creatine Phosphokinase 54 U/L 26-192 Blanca l (applies to non-numeric results) [facility] ([facility] ) MB/CK Relative Index 1.85 Normal (applies to non-num thu results) [facility] ([facility] <content>DIAGNOSIS CRITERIA</content>
<content>MMB ng/ml Relative Index (RI)</content>
<content>NON-AMI < or = 5 N/A</content>
<content>SOMMER ZONE > 5 < or = 4</content>
<content>AMI > 5 > 4</content>
<content></content> Troponin I Laboratory test result Normal (applies to non-n umeric results) [facility] ([facility] <content>Troponin I Reference Interval f or [employer] [place] LOCI:</content>
<content></content>
<content>99th Percentile= 0.00-0.045 ng/ml</content>
<content></content>
<content>Risk Stratification:</content>
<content><= 0.10 ng/ml Decreased Risk for Adverse Clinical</content>
<content>Events.</content>
<content>0.10-1.50 ng/ml Increased Risk for Adverse Clinical</content>
<content>Events. Evaluation of additional</content>
<content>criterion and/or repeat testing in 2-6</content>
<content>hours is suggested to rule out myocardial</content>
<content>damage.</content>
<content>>= 1.50 ng/ml Indicative of Myocardial Injury.</content>
<content></content> ID Date Data Source [id number] 11/11/2019 03:38:00 PM EDT MEDENT ([facility] Name Value Range Interpretation [...] normal MEDE NT ([facility] Ascension % 6.7 % 0.0-5.0 Above high normal [...] Normal (applies to non-numeric re sults) MEDENT ([facility] Immature Granulocyte % 0.3 % 0-3.0 Normal (applies to non-n umeric results) MEDENT ([facility] Ascension # 0.6 10 0.0-0.8 Normal (applies to non-numeric resul ts) MEDENT ([facility] Lymph # 1.8 10 1.5-5.0 Normal (applies to non-numeric resul ts) MEDENT ([facility] Baso # 0.1 10 0.0-0.2 Normal (applies to non-numeric resul ts) MEDENT ([facility] Eos # 0.1 10 0.0-0.5 Normal (applies to non-numeric resul ts) [facility]ENT ([facility] ID Date Data Source [id number] 09/02/2019 01:30:00 PM EDT [facility] ([facility] Name Value Range Interpretation Code Description Data Dana rce(s) Supporting Document(s) WBC 11.1 10E3/uL 4.1-10.9 Above high normal MEDEN T ([facility] NORMAL RANGES Age [...] HCT IS 5% LESS SOURCE FOR DATA: [employer] 1800 OPERATION MANUAL( AUTOMATED BLOOD COUNTS AND [...] HGB 11.6 g/dL 12.0-18.0 Below low normal [facility] ( [facility] NORMAL [...] HCT IS 5% LESS SOURCE FOR DATA: [employer] 1800 OPERATION MANUAL( AUTOMATED BLOOD COUNTS AND [...] HCT IS 5% LESS SOURCE FOR DATA: [employer] 1800 OPERATION MANUAL( AUTOMATED BLOOD COUNTS AND [...] HCT 35.7 % 37.0-51.0 Below low normal [facility] ( [facility] NORMAL [...] HCT IS 5% LESS SOURCE FOR DATA: [employer] 1800 OPERATION MANUAL( AUTOMATED BLOOD COUNTS AND [...] mL/min Normal MCH 31.4 pg 26.0-32.0 MARY ([facility] NORMAL RANGES Age WBC [...] HCT IS 5% LESS SOURCE FOR DATA: [employer] 1800 OPERATION MANUAL( AUTOMATED BLOOD COUNTS AND [...] mL/min Normal MCV 96.7 fL 80.0-97.0 MARY ([facility] NORMAL RANGES Age WBC [...] HCT IS 5% LESS SOURCE FOR DATA: [employer] 1800 OPERATION MANUAL( AUTOMATED BLOOD COUNTS AND [...] >32 mL/min Normal MCHC 32.5 g/dL 31.0-36.0 [facility] ([facility] NORMAL RANGES Age WBC [...] HCT IS 5% LESS SOURCE FOR DATA: [facility] DYN 1800 OPERATION MANUAL( AUTOMATED [...] >32 mL/min Normal PLT 391 10E3/uL 140-440 happin! ([facility] NORMAL RANGES Age WBC RBC [...] HCT IS 5% LESS SOURCE FOR DATA: [employer] 1800 OPERATION MANUAL( AUTOMATED BLOOD COUNTS AND [...] RDW-CV 14.9 % 11.5-14.5 Above high normal [facility] ([facility] NORMAL RANGES Age [...] HCT IS 5% LESS SOURCE FOR DATA: [employer] 1800 OPERATION MANUAL( AUTOMATED BLOOD COUNTS AND [...] >32 mL/min Normal MXD% 11.8 % 0.1-24.0 [facility] ([facility] NORMAL RANGES [...] HCT IS 5% LESS SOURCE FOR DATA: [employer] 1800 OPERATION MANUAL( AUTOMATED BLOOD COUNTS AND [...] >32 mL/min Normal Neut% 66.3 % 37.0-92.0 [facility] ([facility] NORMAL RANGES [...] HCT IS 5% LESS SOURCE FOR DATA: [employer] 1800 OPERATION MANUAL( AUTOMATED BLOOD COUNTS AND [...] HCT IS 5% LESS SOURCE FOR DATA: [employer] 1800 OPERATION MANUAL( AUTOMATED BLOOD COUNTS AND [...] HCT IS 5% LESS SOURCE FOR DATA: [employer] 1800 OPERATION MANUAL( AUTOMATED BLOOD COUNTS AND [...] mL/min Normal MXD# 1.3 10E3/uL 0.0-1.8 MEDENT ([facility] NORMAL RANGES Age WBC RBC [...] HCT IS 5% LESS SOURCE FOR DATA: [employer] DYN 1800 OPERATION MANUAL( AUTOMATED BLOOD COUNTS [...] mL/min Normal Lym# 2.4 10E3/uL 0.6-4.1 MARY ([facility] NORMAL RANGES Age WBC RBC [...] HCT IS 5% LESS SOURCE FOR DATA: [employer] 1800 OPERATION MANUAL( AUTOMATED BLOOD COUNTS AND [...] >32 mL/min Normal MPV 11.4 fL 9.0-13.0 [facility] ([facility] NORMAL RANGES Age WBC [...] HCT IS 5% LESS SOURCE FOR DATA: [employer] 1800 OPERATION MANUAL( AUTOMATED BLOOD COUNTS AND [...] >32 mL/min Normal ID Date Data Source [id number] 09/02/2019 01:30:00 PM EDT [facility]JONA ([facility] Name Value Range Interpretation Code Description Data Dana rce(s) Supporting Document(s) Glu 77 mg/dL 70-110 [facility] ([facility] NORMAL RANGES Age WBC [...] HCT IS 5% LESS SOURCE FOR DATA: [employer] 1800 OPERATION MANUAL( AUTOMATED BLOOD COUNTS AND [...] >32 mL/min Normal BUN 15 mg/dL 8- [facility] ([facility] NORMAL RANGES Age WBC [...] HCT IS 5% LESS SOURCE FOR DATA: [employer] 1800 OPERATION MANUAL( AUTOMATED BLOOD COUNTS AND [...] above >32 mL/min Normal BUN/Creatinine Ratio 21.[address] [facility] ([facility] NORMAL RANGES Age [...] HCT IS 5% LESS SOURCE FOR DATA: [employer] 1800 OPERATION MANUAL( AUTOMATED BLOOD COUNTS AND [...] >32 mL/min Normal Creat 0.7 mg/dL 0.5-1.0 [facility] ([facility] NORMAL [...] HCT IS 5% LESS SOURCE FOR DATA: [employer] 1800 OPERATION MANUAL( AUTOMATED BLOOD COUNTS AND [...] >32 mL/min Normal Co2 24.8 mmol/L 22.0-29.0 [facility] ([facility] NORMAL RANGES Age WBC RBC [...] HCT IS 5% LESS SOURCE FOR DATA: [employer] 1800 OPERATION MANUAL( AUTOMATED BLOOD COUNTS AND [...] HCT IS 5% LESS SOURCE FOR DATA: [employer] 1800 OPERATION MANUAL( AUTOMATED BLOOD COUNTS AND [...] >32 mL/min Normal Na 139 mmol/L 136-145 [facility] NORMAL RANGES [...] HCT IS 5% LESS SOURCE FOR DATA: [employer] 1800 OPERATION MANUAL( AUTOMATED BLOOD COUNTS AND [...] mL/min Normal Anion Gap 16 mmol/L MARY ([facility] NORMAL RANGES Age WBC [...] HCT IS 5% LESS SOURCE FOR DATA: [employer] 1800 OPERATION MANUAL( AUTOMATED BLOOD COUNTS AND [...] >32 mL/min Normal CL 102.7 mmol/L 98.0-107.0 [facility] ([facility] NORMAL RANGES Age WBC RBC HGB [...] HCT IS 5% LESS SOURCE FOR DATA: [employer] 1800 OPERATION MANUAL( AUTOMATED BLOOD COUNTS AND [...] >32 mL/min Normal K 4.6 mmol/L 3.5-5.1 happin! ([facility] NORMAL RANGES Age WBC RBC [...] HCT IS 5% LESS SOURCE FOR DATA: [employer] DYN 1800 OPERATION MANUAL( AUTOMATED BLOOD COUNTS [...] and above >32 mL/min Normal eGFR Non-Afr. Citizen Of [place] 80 # MEDENT ([facility] [...] HCT IS 5% LESS SOURCE FOR DATA: [employer] 1800 OPERATION MANUAL( AUTOMATED BLOOD COUNTS AND [...] HCT IS 5% LESS SOURCE FOR DATA: [employer] 1800 OPERATION MANUAL( AUTOMATED BLOOD COUNTS AND [...] >32 mL/min Normal ID Date Data Source [id number] 09/02/2019 01:30:00 PM EDT [facility] Name Value Range Interpretation Code Description Data Dana rce(s) Supporting Document(s) Creatine kinase [Enzymatic activity/volume] in Serum or Plasma 58 U /L 26-192 [facility] ([facility] NORMAL RANGES Age [...] HCT IS 5% LESS SOURCE FOR DATA: [employer] 1800 OPERATION MANUAL( AUTOMATED BLOOD COUNTS AND [...] >32 mL/min Normal ID Date Data Source [id number] 09/02/2019 01:30:00 PM EDT MARY ([facility] Name Value Range Interpretation Code Description Data Dana rce(s) Supporting Document(s) Thyrotropin [Units/volume] in Serum or Plasma 2.482 ulU/mL 0.60-4.8 [facility] ([facility] ID Date Data Source [id number] 07/24/2019 05:55:00 AM EDT MEDENT ([facility]amil [facility] [...] normal MEDENT ( [facility] Ascension % 8.2 % 0.0-5.0 Above high normal [...] Normal (applies to non-numeric resul ts) MEDENT ([facility] Neutrophils # 8.9 10 1.5-8.5 Above high normal MEDE NT ([facility] Nucleated Red Blood Cell % 0.0 % 0-0 Normal (applies to n on-numeric results) [facility] ([facility] Lymph # 1.4 10 1.5-5.0 Below low normal [facility] ( [facility] Baso # 0.1 10 0.0-0.2 Normal (applies to non-numeric resul ts) [facility] ([facility] Ascension # 0.9 10 0.0-0.8 Above high normal [facility] ([facility] Eos # 0.1 10 0.0-0.5 Normal (applies to non-numeric resul ts) [facility] ([facility] ID Date Data Source [id number] 07/24/2019 05:55:00 AM EDT MEDENT ([facility]) Name Value Range Interpretation Code Description Data Dana rce(s) Supporting Document(s) White Blood Count 11.4 10 4.0-10.0 Above high normal MEDENT ([facility]) Red Blood Count 3.59 10 4.00-5.40 Below low normal MED ENT ([facility]) Hemoglobin 11.8 g/dL 12.0-15.5 Below low normal MEDENT ( [facility]) Hematocrit 35.9 % 36.0-47.0 Below low normal MEDENT ( [facility]) Mean Corpuscular Volume 100.0 fl 80.0-96.0 Above high normal [facility]) Mean Corpuscular Hemoglobin 32.9 pg 27.0-33.0 Norm al (applies to non-numeric results) [facility] ([facility]) Mean Corpuscular HGB Conc 32.9 g/dL 32.0-36.5 Normal (applies to non-numeric results) [facility] ([facility]) Platelet Count, Automated 279 10 150-450 Normal (applies to non-numeric results) [facility] ([facility]) Red Cell Distribution Width 13.5 % 11.5-14.5 Norm al (applies to non-numeric results) MED[facility] ([facility]) Lymph % 12.2 % 24.0-44.0 Below low normal MED[facility] ( [facility]) Neutrophils % 77.7 % 36.0-66.0 Above high normal MEDE NT ([facility]) Ascension % 8.2 % 0.0-5.0 Above high normal MED[facility] ([facility]) Eos % 1.1 % 0.0-3.0 Normal (applies to non-numeric resul ts) MED[facility] ([facility]) Baso % 0.4 % 0.0-1.0 Normal (applies to non-numeric resul ts) MED[facility] ([facility]) Immature Granulocyte % 0.4 % 0-3.0 Normal (applies to non-n umeric results) MED[facility] ([facility]) Nucleated Red Blood Cell % 0.0 % 0-0 Normal (applies to n on-numeric results) [facility] ([facility]) Neutrophils # 8.9 10 1.5-8.5 Above high normal MEDE NT ([facility]) Lymph # 1.4 10 1.5-5.0 Below low normal MED[facility] ( [facility]) Ascension # 0.9 10 0.0-0.8 Above high normal MED[facility] ([facility]) Eos # 0.1 10 0.0-0.5 Normal (applies to non-numeric resul ts) [facility] ([facility]) Baso # 0.1 10 0.0-0.2 Normal (applies to non-numeric resul ts) [facility] ([facility]) ID Date Data Source [id number] 07/23/2019 06:41:00 AM EDT MEDENT ([facility] Name Value Range Interpretation Code Description Data Dana rce(s) Supporting Document(s) Glucose, Fasting 97 mg/dL 70-100 Normal (applies to non-numeric results) [facility] ([facility] Creatinine For GFR 0.51 mg/dL 0.55-1.30 Below low normal [facility] ([facility] Blood Urea Nitrogen 10 mg/dL 7-18 Normal (applies to non-nume fiorella results) [facility] ([facility] Sodium Level 141 meq/L 136-145 Normal (applies to non-numeric res ults) [facility] ([facility] Glomerular Filtration Rate Laboratory test result Normal (applies to non- numeric results) [facility] ([facility] ) <content>Units are mL/min/1.73 m2</content>
<content></content>
<content>Chronic Kidney Disease Staging per NKF:</content>
<content></content>
<content>Stage I & II GFR >=60 Normal to Mildly Decreased</content>
<content>Stage III GFR 30- 59 Moderately Decreased</content>
<content>Stage IV GFR 15-29 Severely Decreased</content>
<content>Stage V GFR <15 Very Little GFR Left</content>
<content>ESRD GFR <15 on [employer]ICE WORKER</content>
<content></content> Potassium Serum 3.5 meq/L 3.5-5.1 Normal (applies to non-numeric results) [facility] ([facility] Chloride Level 109 meq/L 98-107 Above high normal MED ENT ([facility] Carbon Dioxide Level 28 meq/L 21-32 Normal (applies to non-num thu results) [facility] ([facility] Anion Gap 4 meq/L 8-16 Below low normal [facility] ( [facility] Calcium Level 7.7 mg/dL 8.8-10.2 Below low normal MEDEN T ([facility] Alt/SGPT 18 U/L 12-78 Normal (applies to non-numeric resul ts) [facility] ([facility] Alkaline Phosphatase 85 U/L 45-117 Normal (applies to non-num thu results) [facility] ([facility] Ast/Sgot 14 U/L 7-37 Normal (applies to non-numeric resul ts) [facility] ([facility] Total Protein 5.2 GM/DL 6.4-8.2 Below low normal MEDEN T ([facility] Bilirubin,Total 0.4 mg/dL 0.2-1.0 Normal (applies to non-numeric results) [facility] ([facility] Albumin/Globulin Ratio 0.86 1.00-1.93 Below low normal [facility] ([facility] Albumin 2.4 GM/DL 3.2-5.2 Below low normal [facility] ( [facility] ID Date Data Source [id number] 07/23/2019 06:41:00 AM EDT [facility] ([facility] Name Value Range Interpretation Code Description Data Dana rce(s) Supporting Document(s) Red Blood Count 3.51 10 4.00-5.40 Below low normal MED ENT ([facility] White Blood Count 13.2 10 4.0-10.0 Above high normal [facility] ([facility] Hematocrit 35.2 % 36.0-47.0 Below low normal [facility] ( [facility] Hemoglobin 11.5 g/dL 12.0-15.5 Below low normal [facility] ( [facility] Mean Corpuscular Volume 100.3 fl 80.0-96.0 Above high normal [facility] ([facility] Mean Corpuscular HGB Conc 32.7 g/dL 32.0-36.5 Normal (applies to non-numeric results) [facility] ([facility] ) Mean Corpuscular Hemoglobin 32.8 pg 27.0-33.0 Norm al (applies to non-numeric results) [facility] ([facility] ) Red Cell Distribution Width 13.5 % 11.5-14.5 Norm al (applies to non-numeric results) [facility] ([facility] ) Platelet Count, Automated 248 10 150-450 Normal (applies to non-numeric results) [facility] ([facility] ) Neutrophils % 81.3 % 36.0-66.0 Above high normal MEDE NT ([facility] Ascension % 7.9 % 0.0-5.0 Above high normal [facility] ([facility] Lymph % 10.0 % 24.0-44.0 Below low normal [facility] ( [facility] Baso % 0.2 % 0.0-1.0 Normal (applies to non-numeric resul ts) [facility] ([facility] Eos % 0.2 % 0.0-3.0 Normal (applies to non-numeric resul ts) [facility] ([facility] Neutrophils # 10.8 10 1.5-8.5 Above high normal MEDE NT ([facility] Nucleated Red Blood Cell % 0.0 % 0-0 Normal (applies to n on-numeric results) [facility] ([facility] Immature Granulocyte % 0.4 % 0-3.0 Normal (applies to non-n umeric results) [facility] ([facility] Ascension # 1.0 10 0.0-0.8 Above high normal [facility] ([facility] Lymph # 1.3 10 1.5-5.0 Below low normal [facility] ( [facility] Eos # 0.0 10 0.0-0.5 Normal (applies to non-numeric resul ts) [facility] ([facility] Baso # 0.0 10 0.0-0.2 Normal (applies to non-numeric resul ts) [facility] ([facility] ID Date Data Source [id number] 07/23/2019 06:41:00 AM EDT [facility] ([facility], ) Name Value Range Interpretation Code Description Data Dana rce(s) Supporting Document(s) Glucose, Fasting 97 mg/dL 70-100 Normal (applies to non-numeric results) [facility] ([facility], ) Creatinine For GFR 0.51 mg/dL 0.55-1.30 Below low normal [facility] ([facility]) Glomerular Filtration Rate Laboratory test result Normal (applies to non- numeric results) [facility] ([facility]) <content>Units are mL/min/1.73 m2</content>
<content></content>
<content>Chronic Kidney Disease Staging per NKF:</content>
<content></content>
<content>Stage I & II GFR >=60 Normal to Mildly Decreased</content>
<content>Stage III GFR 30- 59 Moderately Decreased</content>
<content>Stage IV GFR 15-29 Severely Decreased</content>
<content>Stage V GFR <15 Very Little GFR Left</content>
<content>ESRD GFR <15 on [employer] WORK[employer]</content>
<content></content> Blood Urea Nitrogen 10 mg/dL 7-18 Normal (applies to non-nume fiorella results) [facility] ([facility], ) Sodium Level 141 meq/L 136-145 Normal (applies to non-numeric res ults) [facility] ([facility]) Potassium Serum 3.5 meq/L 3.5-5.1 Normal (applies to non-numeric results) [facility] ([facility]) Chloride Level 109 meq/L 98-107 Above high normal MED ENT ([facility]) Carbon Dioxide Level 28 meq/L 21-32 Normal (applies to non-num thu results) [facility] ([facility]) Anion Gap 4 meq/L 8-16 Below low normal [facility] ( [facility]) Calcium Level 7.7 mg/dL 8.8-10.2 Below low normal MEDEN T ([facility]) Alkaline Phosphatase 85 U/L 45-117 Normal (applies to non-num thu results) [facility] ([facility]) Ast/Sgot 14 U/L 7-37 Normal (applies to non-numeric resul ts) [facility] ([facility]) Alt/SGPT 18 U/L 12-78 Normal (applies to non-numeric resul ts) [facility]) Total Protein 5.2 GM/DL 6.4-8.2 Below low normal MEDEN T ([facility]) Bilirubin,Total 0.4 mg/dL 0.2-1.0 Normal (applies to non-numeric results) [facility]) Albumin 2.4 GM/DL 3.2-5.2 Below low normal [facility] ( [facility]) Albumin/Globulin Ratio 0.86 1.00-1.93 Below low normal [facility] ([facility]) ID Date Data Source [id number] 07/23/2019 06:41:00 AM EDT [facility] ([facility]) Name Value Range Interpretation Code Description Data Dana rce(s) Supporting Document(s) White Blood Count 13.2 10 4.0-10.0 Above high normal [facility] ([facility]) Red Blood Count 3.51 10 4.00-5.40 Below low normal MED ENT ([facility]) Hemoglobin 11.5 g/dL 12.0-15.5 Below low normal [facility] ( [facility]) Hematocrit 35.2 % 36.0-47.0 Below low normal [facility] ( [facility]) Mean Corpuscular Hemoglobin 32.8 pg 27.0-33.0 Norm al (applies to non-numeric results) [facility] ([facility]) Mean Corpuscular Volume 100.3 fl 80.0-96.0 Above high normal [facility] ([facility]) Mean Corpuscular HGB Conc 32.7 g/dL 32.0-36.5 Normal (applies to non-numeric results) [facility] ([facility]) Red Cell Distribution Width 13.5 % 11.5-14.5 Norm al (applies to non-numeric results) [facility] ([facility]) Neutrophils % 81.3 % 36.0-66.0 Above high normal MEDE NT ([facility]) Platelet Count, Automated 248 10 150-450 Normal (applies to non-numeric results) [facility] ([facility]) Lymph % 10.0 % 24.0-44.0 Below low normal [facility] ( [facility]) Ascension % 7.9 % 0.0-5.0 Above high normal [facility] ([facility]) Eos % 0.2 % 0.0-3.0 Normal (applies to non-numeric resul ts) [facility] ([facility]) Baso % 0.2 % 0.0-1.0 Normal (applies to non-numeric resul ts) [facility] ([facility]) Immature Granulocyte % 0.4 % 0-3.0 Normal (applies to non-n umeric results) [facility] ([facility]) Neutrophils # 10.8 10 1.5-8.5 Above high normal MEDE NT ([facility]) Nucleated Red Blood Cell % 0.0 % 0-0 Normal (applies to n on-numeric results) [facility] ([facility]) Lymph # 1.3 10 1.5-5.0 Below low normal [facility] ( [facility]) Ascension # 1.0 10 0.0-0.8 Above high normal [facility] ([facility]) Eos # 0.0 10 0.0-0.5 Normal (applies to non-numeric resul ts) [facility] ([facility]) Baso # 0.0 10 0.0-0.2 Normal (applies to non-numeric resul ts) [facility] ([facility]) ID Date Data Source [id number] 07/22/2019 07:08:00 AM EDT [facility] ([facility]) Name Value Range Interpretation Code Description Data Dana rce(s) Supporting Document(s) Surgical pathology study Laboratory test result [facility] ([facility]) FINAL DIAGNOSIS Appendix, appendectomy: Suppurative [...] M.D. 07/23/2019 1204 ID Date Data Source [id number] 07/22/2019 04:34:00 AM EDT [facility] ([facility] Name Value Range Interpretation Code Description Data Dana rce(s) Supporting Document(s) Glucose [Mass/volume] in Capillary blood by Glucometer 97 mg/dL 83-110 Normal (applies to non-numeric results) [facility] ([facility] ID Date Data Source [id number] 07/22/2019 04:34:00 AM EDT [facility] ([facility]) Name Value Range Interpretation Code Description Data Dana rce(s) Supporting Document(s) Glucose [Mass/volume] in Capillary blood by Glucometer 97 mg/dL 83-110 Normal (applies to non-numeric results) [facility]) ID Date Data Source [id number] 07/21/2019 08:23:00 PM EDT [facility] ([facility] Name Value Range Interpretation Code Description Data Dana rce(s) Supporting Document(s) Reflex Urine Culture Laboratory test result Norm al (applies to non-numeric results) [facility] ([facility] ) FULL REPORT IN LAB NOTES (eCW and [facility] ). NO GROWTH CLINICAL SIGNIFICANCE 1 ORGANISM ID Date Data Source [id number] 07/21/2019 08:23:00 PM EDT [facility] ([facility] Name Value Range Interpretation Code Description Data Dana rce(s) Supporting Document(s) Appearance, Urine RFX Laboratory test result Nor mal (applies to non-numeric results) [facility] ([facility] ) Specific [place] Ur Auto RFX 1.024 1.002-1.035 Nor mal (applies to non-numeric results) [facility] ([facility] ) PH,Urine RFX 5.0 units 5.0-9.0 Normal (applies to non-numeric res ults) [facility] ([facility] Color, Urine RFX Laboratory test result Normal ( applies to non-numeric results) [facility] ([facility] ) Ketone, Urine Auto RFX Laboratory test result No rmal (applies to non-numeric results) [facility] ([facility] ) Glucose, Urine (Ua) Auto RFX Laboratory test result Normal (applies to non- numeric results) [facility] ([facility] ) Protein, Urine Auto RFX Laboratory test result N ormal (applies to non-numeric results) [facility] ([facility] ) Bilirubin, Urine Auto RFX Laboratory test result Normal (applies to non- numeric results) [facility] ([facility] ) Urobilinogen, Urine Auto RFX 0.2 mg/dL 0.0-2.0 Nor mal (applies to non-numeric results) [facility] ([facility] ) Nitrite, Urine Auto RFX Laboratory test result N ormal (applies to non-numeric results) [facility] ([facility] ) Blood, Urine Blood RFX Laboratory test result No rmal (applies to non-numeric results) [facility] ([facility] ) Leukocyte Esterase Ur Auto RFX Laboratory test result Abov e high normal [facility] ([facility] Bacteria, Urine Auto RFX Laboratory test result Normal (applies to non-numeric results) [facility] ([facility] ) RBC, Urine Auto RFX 1 /HPF 0-3 Normal (applies to non-nume fiorella results) [facility] ([facility] WBC, Urine Auto RFX 14 /HPF 0-3 Above high normal [facility] ([facility] Squam Epithelial Cell Ur Aurfx 0 /HPF 0-6 N ormal (applies to non-numeric results) [facility] ([facility] ) Mucus, Urine RFX Laboratory test result Normal ( applies to non-numeric results) [facility] ([facility] ) Hyaline Cast, Urine Auto RFX 0 /LPF 0-1 Normal (appl ies to non-numeric results) [facility] ([facility] ID Date Data Source [id number] 07/21/2019 08:23:00 PM EDT [facility] ([facility], ) Name Value Range Interpretation Code Description Data Dana rce(s) Supporting Document(s) Reflex Urine Culture Laboratory test result Norm al (applies to non-numeric results) [facility] ([facility], ) FULL REPORT IN LAB NOTES (eCW and [facility] ). NO GROWTH CLINICAL SIGNIFICANCE 1 ORGANISM ID Date Data Source [id number] 07/21/2019 08:03:00 PM EDT [facility] ([facility] Name Value Range Interpretation Code Description Data Dana rce(s) Supporting Document(s) Lipoprotein lipase [Enzymatic activity/volume] in Serum or Plasm a 88 U/L 73-393 Normal (applies to non-numeric results) [facility] ([facility] <content>note:<nlbl:[email or web address]> </content>
<content></content> ID Date Data Source [id number] 07/21/2019 08:03:00 PM EDT [facility] ([facility] Name Value Range Interpretation Code Description Data Dana rce(s) Supporting Document(s) Glucose, Fasting 110 mg/dL 70-100 Above high normal M EDENT ([facility] Creatinine For GFR 0.62 mg/dL 0.55-1.30 Normal (applies to non -numeric results) [facility] ([facility] Glomerular Filtration Rate Laboratory test result Normal (applies to non- numeric results) [facility] ([facility] ) <content>Units are mL/min/1.73 m2</content>
<content></content>
<content>Chronic Kidney Disease Staging per NKF:</content>
<content></content>
<content>Stage I & II GFR >=60 Normal to Mildly Decreased</content>
<content>Stage III GFR 30-59 Moderately Decreased</content>
<content>Stage IV GFR 15-29 Severely Decreased</content>
<content>Stage V GFR <15 Very Little GFR Left</content>
<content>ESRD GFR <15 on [employer] WORKER</content>
<content></content> Blood Urea Nitrogen 18 mg/dL 7-18 Normal (applies to non-nume fiorella results) [facility] ([facility] Sodium Level 141 meq/L 136-145 Normal (applies to non-numeric res ults) [facility] ([facility] Chloride Level 109 meq/L 98-107 Above high normal MED [facility] ([facility] Potassium Serum 3.8 meq/L 3.5-5.1 Normal (applies to non-numeric results) [facility] ([facility] Calcium Level 8.5 mg/dL 8.8-10.2 Below low normal MEDEN T ([facility] Carbon Dioxide Level 30 meq/L 21-32 Normal (applies to non-num thu results) [facility] ([facility] Anion Gap 2 meq/L 8-16 Below low normal [facility] ( [facility] ID Date Data Source [id number] 07/21/2019 08:03:00 PM EDT [facility] ([facility] Name Value Range Interpretation Code Description Data Dana rce(s) Supporting Document(s) Ast/Sgot 12 U/L 7-37 Normal (applies to non-numeric resul ts) [facility] ([facility] Alkaline Phosphatase 92 U/L 45-117 Normal (applies to non-num thu results) [facility] ([facility] Alt/SGPT 16 U/L 12-78 Normal (applies to non-numeric resul ts) [facility] ([facility] Total Protein 5.7 GM/DL 6.4-8.2 Below low normal MEDEN T ([facility] Bilirubin,Total 0.3 mg/dL 0.2-1.0 Normal (applies to non-numeric results) [facility] ([facility] Bilirubin,Direct Laboratory test result 0.0-0.2 Normal ( applies to non-numeric results) [facility] ([facility] ) Albumin 2.8 GM/DL 3.2-5.2 Below low normal [facility] ( [facility] Albumin/Globulin Ratio 0.97 1.00-1.93 Below low normal [facility] ([facility] ID Date Data Source [id number] 07/21/2019 08:03:00 PM EDT [facility] ([facility] Name Value Range Interpretation Code Description Data Dana rce(s) Supporting Document(s) Red Blood Count 3.73 10 4.00-5.40 Below low normal MED E[facility] ([facility] White Blood Count 12.5 10 4.0-10.0 Above high normal [facility] ([facility] Mean Corpuscular Volume 98.9 fl 80.0-96.0 Above high normal [facility] ([facility] Hemoglobin 12.0 g/dL 12.0-15.5 Normal (applies to non-numeric resul ts) [facility] ([facility] Hematocrit 36.9 % 36.0-47.0 Normal (applies to non-numeric resul ts) [facility] ([facility] Red Cell Distribution Width 13.3 % 11.5-14.5 Norm al (applies to non-numeric results) [facility] ([facility] ) Mean Corpuscular Hemoglobin 32.2 pg 27.0-33.0 Norm al (applies to non-numeric results) [facility] ([facility] ) Mean Corpuscular HGB Conc 32.5 g/dL 32.0-36.5 Normal (applies to non-numeric results) [facility] ([facility] ) Platelet Count, Automated 283 10 150-450 Normal (applies to non-numeric results) [facility] ([facility] ) Neutrophils % 78.6 % 36.0-66.0 Above high normal MEDE NT ([facility] Ascension % 10.0 % 0.0-5.0 Above high normal [facility] ([facility] Lymph % 9.4 % 24.0-44.0 Below low normal [facility] ( [facility] Eos % 1.0 % 0.0-3.0 Normal (applies to non-numeric resul ts) [facility] ([facility] Immature Granulocyte % 0.4 % 0-3.0 Normal (applies to non-n umeric results) [facility] ([facility] Nucleated Red Blood Cell % 0.0 % 0-0 Normal (applies to n on-numeric results) [facility] ([facility] Baso % 0.6 % 0.0-1.0 Normal (applies to non-numeric resul ts) [facility] ([facility] Lymph # 1.2 10 1.5-5.0 Below low normal [facility] ( [facility] Neutrophils # 9.9 10 1.5-8.5 Above high normal MEDE NT ([facility] Ascension # 1.3 10 0.0-0.8 Above high normal [facility] ([facility] Eos # 0.1 10 0.0-0.5 Normal (applies to non-numeric resul ts) [facility] ([facility] Baso # 0.1 10 0.0-0.2 Normal (applies to non-numeric resul ts) [facility] ([facility] ID Date Data Source [id number] 07/21/2019 11:38:00 AM EDT [facility] ([facility] Name Value Range Interpretation Code Description Data Dana rce(s) Supporting Document(s) Color Urine Laboratory test result M EDENT ([facility] Appearance of Urine Laboratory test result [facility] ([facility] PH Urine 6.5 5.0-8.0 [facility] ([facility] Specific [place] 1.020 1.00-1.03 [facility] ([facility] Glucose Urine Laboratory test result [facility] ([facility] Bilirubin.total [Presence] in Urine by Test strip Laboratory test res ult [facility] ([facility] Blood Urine Laboratory test result M EDENT ([facility] Ketones Laboratory test result [facility] ([facility] Urobilinogen 0.2 EU/dl 0.2-1.0 [facility] ([facility] Nitrite Laboratory test result [facility] ([facility] Protein Urine Laboratory test result [facility] ([facility] Leukocytes Laboratory test result Above high normal [facility] ([facility] ID Date Data Source [id number] 07/21/2019 11:16:00 AM EDT [facility] ([facility] Name Value Range Interpretation Code Description Data Dana rce(s) Supporting Document(s) Glu 130 mg/dL 70-110 Above high normal [facility] ([facility] NORMAL RANGES Age [...] >32 mL/min Normal BUN 16 mg/dL 8 [facility] NORMAL RANGES Age WBC [...] HCT IS 5% LESS SOURCE FOR DATA: [employer] 1800 [employer]PERATION MANUAL( AUTOMATED BLOOD COUNTS AND [...] >32 mL/min Normal Creat 0.7 mg/dL 0.5-1.0 [facility] ([facility] NORMAL RANGES [...] HCT IS 5% LESS SOURCE FOR DATA: [employer] 1800 [employer] MANUAL( AUTOMATED BLOOD COUNTS AND [...] >32 mL/min Normal BUN/Creatinine Ratio 22.8 CALC [facility] ([facility] NORMAL RANGES Age [...] HCT IS 5% LESS SOURCE FOR DATA: [employer] 1800 [employer]PERATION MANUAL( AUTOMATED BLOOD COUNTS AND [...] >32 mL/min Normal K 3.9 mmol/L 3.5-5.1 [facility] ([facility] NORMAL RANGES [...] HCT IS 5% LESS SOURCE FOR DATA: [employer] 1800 [employer]PERATION MANUAL( AUTOMATED BLOOD COUNTS AND [...] >32 mL/min Normal Na 138 mmol/L 136-145 [facility] NORMAL RANGES Age WBC RBC [...] HCT IS 5% LESS SOURCE FOR DATA: [employer] 1800 [employer]PERATION MANUAL( AUTOMATED BLOOD COUNTS AND [...] CL 102.6 mmol/L 98.0-107.0 [facility] ([facility] NORMAL RANGES Age WBC [...] HCT IS 5% LESS SOURCE FOR DATA: [employer] 1800 [employer]PERATION MANUAL( AUTOMATED BLOOD COUNTS AND [...] >32 mL/min Normal Co2 23.1 mmol/L 22.0-29.0 [facility] ([facility] NORMAL RANGES [...] HCT IS 5% LESS SOURCE FOR DATA: [employer] 1800 [employer]PERATION MANUAL( AUTOMATED BLOOD COUNTS AND [...] >32 mL/min Normal CA 9.0 mg/dL 8.6-10.2 [facility] NORMAL RANGES Age WBC [...] HCT IS 5% LESS SOURCE FOR DATA: [employer] 1800 [employer]PERATION MANUAL( AUTOMATED BLOOD COUNTS AND [...] TP 5.8 g/dL 6.6-8.7 Below low normal [facility] ( [facility] NORMAL RANGES Age [...] HCT IS 5% LESS SOURCE FOR DATA: [employer] 1800 [employer]PERATION MANUAL( AUTOMATED BLOOD COUNTS AND [...] >32 mL/min Normal Alb 3.8 g/dL 3.4-4.8 [facility] NORMAL RANGES Age WBC [...] >32 mL/min Normal A/G Ratio 1.8 CALC [facility] NORMAL RANGES Age WBC [...] HCT IS 5% LESS SOURCE FOR DATA: [employer] 1800 [employer]PERATION MANUAL( AUTOMATED BLOOD COUNTS AND [...] mL/min Normal Globulin 2.1 CALC [facility] NORMAL RANGES Age [...] HCT IS 5% LESS SOURCE FOR DATA: [employer] 1800 [employer]PERATION MANUAL( AUTOMATED BLOOD COUNTS AND [...] >32 mL/min Normal Alp 104.5 U/L 35-129 [facility] NORMAL RANGES Age WBC [...] HCT IS 5% LESS SOURCE FOR DATA: [employer]PER[employer] MANUAL( AUTOMATED BLOOD COUNTS AND [...] mL/min Normal Alt (SGPT) 10 U/L 0-41 [facility] ([facility] NORMAL RANGES [...] HCT IS 5% LESS SOURCE FOR DATA: [employer] 1800 OPERATION MANUAL( AUTOMATED BLOOD COUNTS AND [...] mL/min Normal Ast (Sgot) 14 U/L 0-40 [facility] ([facility] NORMAL RANGES [...] HCT IS 5% LESS SOURCE FOR DATA: [employer] 1800 OPERATION MANUAL( AUTOMATED BLOOD COUNTS AND [...] >32 mL/min Normal Tbili 0.28 mg/dL 0.0-1.2 [facility] ([facility] NORMAL RANGES Age WBC RBC [...] HCT IS 5% LESS SOURCE FOR DATA: [employer] 1800 OPERATION MANUAL( AUTOMATED BLOOD COUNTS AND [...] mL/min Normal Osmolality-Calculated 278.5 [facility] ([facility] NORMAL RANGES Age WBC [...] HCT IS 5% LESS SOURCE FOR DATA: [employer] 1800 OPERATION MANUAL( AUTOMATED BLOOD COUNTS AND [...] mL/min Normal eGFR 92 # MARY ( [facility] CKD-EPI Anion Gap 16 mmol/L [facility] ([facility] NORMAL RANGES Age WBC RBC [...] HCT IS 5% LESS SOURCE FOR DATA: [employer] 1800 OPERATION MANUAL( AUTOMATED BLOOD COUNTS AND [...] and above >32 mL/min Normal eGFR Non-Afr. Citizen Of [place] 80 # [facility] ([facility] CKD-EPI ID Date Data Source [id number] 07/21/2019 11:16:00 AM EDT MARY ([facility] Name Value Range Interpretation Code Description Data Dana rce(s) Supporting Document(s) WBC 9.6 10E3/uL 4.1-10.9 [facility] ([facility] NORMAL RANGES Age WBC RBC [...] HCT IS 5% LESS SOURCE FOR DATA: [employer] 1800 OPERATION MANUAL( AUTOMATED BLOOD COUNTS AND [...] >32 mL/min Normal HGB 13.8 g/dL 12.0-18.0 [facility] ([facility] NORMAL RANGES Age WBC [...] HCT IS 5% LESS SOURCE FOR DATA: [employer] 1800 OPERATION MANUAL( AUTOMATED BLOOD COUNTS AND [...] >32 mL/min Normal RBC 4.23 10E6/uL 4.20-6.30 [facility] ([facility] NORMAL RANGES Age WBC RBC [...] HCT IS 5% LESS SOURCE FOR DATA: [employer] 1800 OPERATION MANUAL( AUTOMATED BLOOD COUNTS AND [...] >32 mL/min Normal HCT 41.7 % 37.0-51.0 [facility] ([facility] NORMAL [...] HCT IS 5% LESS SOURCE FOR DATA: [employer] 1800 OPERATION MANUAL( AUTOMATED BLOOD COUNTS AND [...] HCT IS 5% LESS SOURCE FOR DATA: [employer] 1800 OPERATION MANUAL( AUTOMATED BLOOD COUNTS AND [...] MCH 32.6 pg 26.0-32.0 Above high normal [facility] ([facility] NORMAL RANGES [...] HCT IS 5% LESS SOURCE FOR DATA: [employer] 1800 OPERATION MANUAL( AUTOMATED BLOOD COUNTS AND [...] >32 mL/min Normal MCHC 33.1 g/dL 31.0-36.0 [facility] ([facility] NORMAL RANGES [...] HCT IS 5% LESS SOURCE FOR DATA: [employer] 1800 OPERATION MANUAL( AUTOMATED BLOOD COUNTS AND [...] >32 mL/min Normal RDW-CV 13.7 % 11.5-14.5 [facility] ([facility] NORMAL RANGES Age WBC [...] HCT IS 5% LESS SOURCE FOR DATA: [employer] 1800 OPERATION MANUAL( AUTOMATED BLOOD COUNTS AND [...] >32 mL/min Normal PLT 316 10E3/uL 140-440 [facility] ([facility] NORMAL RANGES Age WBC RBC HGB [...] >32 mL/min Normal Lym% 12.1 % 10.0-58.5 [facility] ([facility] NORMAL RANGES Age WBC [...] HCT IS 5% LESS SOURCE FOR DATA: [employer] 1800 OPERATION MANUAL( AUTOMATED BLOOD COUNTS AND [...] >32 mL/min Normal Neut% 81.7 % 37.0-92.0 [facility] ([facility] NORMAL RANGES [...] HCT IS 5% LESS SOURCE FOR DATA: [employer] 1800 OPERATION MANUAL( AUTOMATED BLOOD COUNTS AND [...] >32 mL/min Normal MXD% 6.2 % 0.1-24.0 [facility] ([facility] NORMAL RANGES [...] HCT IS 5% LESS SOURCE FOR DATA: [employer] 1800 OPERATION MANUAL( AUTOMATED BLOOD COUNTS AND [...] >32 mL/min Normal Neut# 7.8 % 2.0-7.8 [facility] ([facility] NORMAL RANGES [...] HCT IS 5% LESS SOURCE FOR DATA: [employer] 1800 OPERATION MANUAL( AUTOMATED BLOOD COUNTS AND [...] >32 mL/min Normal Lym# 1.2 10E3/uL 0.6-4.1 [facility] ([facility] NORMAL RANGES Age WBC RBC [...] HCT IS 5% LESS SOURCE FOR DATA: [employer] 1800 OPERATION MANUAL( AUTOMATED BLOOD COUNTS AND [...] >32 mL/min Normal MXD# 0.6 10E3/uL 0.0-1.8 [facility] ([facility] NORMAL RANGES Age WBC RBC [...] HCT IS 5% LESS SOURCE FOR DATA: [employer] 1800 OPERATION MANUAL( AUTOMATED BLOOD COUNTS AND [...] >32 mL/min Normal MPV 10.7 fL 9.0-13.0 [facility] ([facility] NORMAL RANGES Age WBC [...] HCT IS 5% LESS SOURCE FOR DATA: [employer] 1800 OPERATION MANUAL( AUTOMATED BLOOD COUNTS AND [...] >32 mL/min Normal ID Date Data Source [id number] 06/17/2019 12:00:00 AM EDT [facility] Fish DO Patient Name: FABIOLA JAMES [facility] Date of : [address] [address] Date of Exam: 06/17/2019PH#: Fax: [phone] EXAM: [...] rce(s) Supporting Document(s) ID Date Data Source [id number] 06/17/2019 12:00:00 AM EDT [facility] Fish DO Patient Name: FABIOLA JAMES [facility] Date of : [address] [address] Date of Exam: 06/17/2019PH#: Fax: [phone] EXAM: [...] rce(s) Supporting Document(s) ID Date Data Source [id number] 05/26/2019 12:00:00 AM EST [facility] Nagi Fish DO Patient Name: FABIOLA JAMES [facility] Date of : [address] [address] Date of Exam: 05/26/2019PH#: Fax: [phone] EXAM: [...] is recommended in 6 months.Accredited by the [place] [employer] in General Ultrasound.CHANCE Ken/Kennedi you for referring ROWAN JAMES to our office. Electronically Signed - BRIAN SOMMER MD 05/26/19 15:49 Name Value Range Interpretation Code Description Data Dana rce(s) Supporting Document(s) ID Date Data Source [id number] 05/17/2019 11:48:00 AM EST [facility] ([facility]) Name Value Range Interpretation Code Description Data Dana rce(s) Supporting Document(s) Appearance, Urine RFX Laboratory test result [facility] ([facility]) Color, Urine RFX Laboratory test result [facility] ([facility]) PH,Urine RFX 8.0 units 5.0-9.0 [facility] ([facility]) Specific [place] Ur Auto RFX 1.028 1.002-1.035 [facility] ([facility]) Protein, Urine Auto RFX Laboratory test result [facility] ([facility]) Urobilinogen, Urine Auto RFX 0.2 mg/dL 0.0-2.0 [facility] ([facility]) Glucose, Urine (Ua) Auto RFX Laboratory test result [facility] ([facility]) Ketone, Urine Auto RFX Laboratory test result [facility] ([facility]) Bilirubin, Urine Auto RFX Laboratory test result [facility] ([facility]) Leukocyte Esterase Ur Auto RFX Laboratory test result [facility] ([facility]) Nitrite, Urine Auto RFX Laboratory test result [facility] ([facility]) Bacteria, Urine Auto RFX Laboratory test result [facility] ([facility]) RBC, Urine Auto RFX 2 /HPF 0-3 [facility] ([facility] Blood, Urine Blood RFX Laboratory test result [facility] ([facility] WBC, Urine Auto RFX 0 /HPF 0-3 [facility] Hyaline Cast, Urine Auto RFX 0 /LPF 0-1 [facility] ([facility] Squam Epithelial Cell Ur Aurfx 0 /HPF 0-6 [facility] ([facility]) ID Date Data Source [id number] 05/17/2019 08:43:00 AM EST [facility] ([facility] Name Value Range Interpretation Code Description Data Dana rce(s) Supporting Document(s) Lipoprotein lipase [Enzymatic activity/volume] in Serum or P lasma 149 U/L 73-393 [facility] ([facility]) <content>note:<nlbl:demographic_changed></content>
<content>note:<nlbl:demog raphic_changed></content>
<content></content> ID Date Data Source [id number] 05/17/2019 08:43:00 AM EST [facility] ([facility]) Name Value Range Interpretation Code Description Data Dana rce(s) Supporting Document(s) Blood Urea Nitrogen 24 mg/dL 7-18 [facility] ([facility] Glucose, Fasting 92 mg/dL 70-100 [facility] ([facility]) Creatinine For GFR 0.72 mg/dL 0.55-1.30 [facility] ([facility]) Glomerular Filtration Rate Laboratory test result [facility] ([facility] <content>Units are mL/min/1.73 m2</content>
<content></content>
<content>Chronic Kidney Disease Staging per NKF:</content>
<content></content>
<content>Stage I & II GFR >=60 Normal to Mildly Decreased</content>
<content>Stage III GFR 30-59 Moderately Decreased</content>
<content>Stage IV GFR 15-29 Severely Decreased</content>
<content>Stage V GFR <15 Very Little GFR Left</content>
<content>ESRD GFR <15 on SUPPLY SERVICE WORKER</content>
<content></content> Sodium Level 142 meq/L 136-145 [facility] ([facility] Carbon Dioxide Level 32 meq/L 21-32 [facility] Anion Gap 2 meq/L 8-16 [facility] ([facility] Potassium Serum 4.9 meq/L 3.5-5.1 [facility] ([facility]) Chloride Level 108 meq/L 98-107 [facility] ([facility] Calcium Level 9.4 mg/dL 8.8-10.2 [facility] ([facility] ID Date Data Source [id number] 05/17/2019 08:43:00 AM EST [facility] ([facility]) Name Value Range Interpretation Code Description Data Dana rce(s) Supporting Document(s) Ast/Sgot 18 U/L 7-37 [facility] ([facility] Alkaline Phosphatase 91 U/L 45-117 [facility] ( [facility]) Alt/SGPT 37 U/L 12-78 [facility] ([facility] Total Protein 6.2 GM/DL 6.4-8.2 [facility] ([facility]) Bilirubin,Direct Laboratory test result 0.0-0.2 [facility] ([facility]) Bilirubin,Total 0.2 mg/dL 0.2-1.0 [facility] ([facility]) Albumin/Globulin Ratio 1.07 1.00-1.93 ME [facility] ([facility]) Albumin 3.2 GM/DL 3.2-5.2 [facility] ([facility] ID Date Data Source [id number] 05/17/2019 08:43:00 AM EST [facility] ([facility]) Name Value Range Interpretation Code Description Data Dana rce(s) Supporting Document(s) CPK Creatine Phosphokinase 56 U/L 26-192 [facility] ([facility]) CK-MB Value Mass 1.1 ng/mL [facility] ([facility]) MB/CK Relative Index 1.96 [facility] ([facility]) <content>DIAGNOSIS CRITERIA</content>
<content>MMB ng/ml Relative Index (RI)</content>
<content>NON-AMI < or = 5 N/A</content>
<content>SOMMER ZONE > 5 < or = 4</content>
<content>AMI > 5 > 4</content>
<content></content> Troponin I Laboratory test result [facility] ([facility]) <content>Troponin I Reference Interval f or Siemens [place] LOCI:</content>
<content></content>
<content>99th Percentile= 0.00-0.045 ng/ml</content>
<content></content>
<content>Risk Stratification:</content>
<content><= 0.10 ng/ml Decreased Risk for Adverse Clinical</content>
<content>Events.</content>
<content>0.10-1.50 ng/ml Increased Risk for Adverse Clinical</content>
<content>Events. Evaluation of additional</content>
<content>criterion and/or repeat testing in 2-6</content>
<content>hours is suggested to rule out myocardial</content>
<content>damage.</content>
<content>>= 1.50 ng/ml Indicative of Myocardial Injury.</content>
<content></content> ID Date Data Source [id number] 05/17/2019 08:43:00 AM EST [facility] ([facility]) Name Value Range Interpretation Code Description Data Dana rce(s) Supporting Document(s) White Blood Count 12.3 10 4.0-10.0 [facility] ([facility]) Red Blood Count 4.40 10 4.00-5.40 [facility] ([facility]) Hemoglobin 14.2 g/dL 12.0-15.5 [facility] ([facility]) Hematocrit 42.0 % 36.0-47.0 [facility] Mean Corpuscular Volume 95.5 fl 80.0-96.0 M [facility] ([facility]) Mean Corpuscular HGB Conc 33.8 g/dL 32.0-36.5 [facility] ([facility]) Red Cell Distribution Width 13.0 % 11.5-14.5 [facility] ([facility]) Mean Corpuscular Hemoglobin 32.3 pg 27.0-33.0 [facility] ([facility]) Neutrophils % 75.9 % 36.0-66.0 [facility] ([facility] Lymph % 14.3 % 24.0-44.0 [facility] ([facility] Platelet Count, Automated 379 10 150-450 [facility] ([facility]) [facility] % 7.5 % 0.0-5.0 [facility] ([facility] Eos % 1.1 % 0.0-3.0 [facility] ([facility] Baso % 0.4 % 0.0-1.0 [facility] ([facility] Nucleated Red Blood Cell % 0.0 % 0-0 [facility] ([facility]) Neutrophils # 9.3 10 1.5-8.5 [facility] ([facility]) Immature Granulocyte % 0.8 % 0-3.0 [facility] ([facility] Lymph # 1.8 10 1.5-5.0 [facility] ([facility] Eos # 0.1 10 0.0-0.5 [facility] ([facility]) Asc[facility] # 0.9 10 0.0-0.8 [facility] ([facility] Baso # 0.1 10 0.0-0.2 [facility] ([facility] [facility] ID Date Data Source [id number] 05/17/2019 08:30:00 AM EST [facility] ([facility]) Name Value Range Interpretation Code Description Data Dana rce(s) Supporting Document(s) Gastrointestinal (GI) Panel Laboratory test result [facility] ([facility]) This Gastrointestinal PCR [...] NUCLEIC ACID PCR ID Date Data Source [id number] 05/11/2019 04:11:00 AM EST [facility] ([facility] Name Value Range Interpretation [...] mmol/L Normal (applies to non-numeric results) [facility] ([facility] Laboratory test finding (navigational concept) 25.0 mmol/L 2 3.0-27.0 Normal (applies to non-numeric results) [facility] Laboratory test finding (navigational concept) 24.3 mmol/L 2 2.0-26.0 Normal (applies to non-numeric results) [facility] ([facility] Laboratory test finding (navigational concept) 90 % 95-98 Below low normal [facility] ([facility] ID Date Data Source [id number] 05/11/2019 12:22:00 AM EST [facility] ([facility] Name Value Range Interpretation Code Description Data Dana rce(s) Supporting Document(s) Red Blood Count 4.27 10 4.00-5.40 Normal (applies to non-numeric results) [facility] ([facility] White Blood Count 5.9 10 4.0-10.0 Normal (applies to non-numeri c results) [facility] ([facility] Mean Corpuscular Volume 97.7 fl 80.0-96.0 Above high normal [facility] ([facility] Hematocrit 41.7 % 36.0-47.0 Normal (applies to non-numeric resul ts) [facility] ([facility] Hemoglobin 13.7 g/dL 12.0-15.5 Normal (applies to non-numeric resul ts) [facility] ([facility] Mean Corpuscular Hemoglobin 32.1 pg 27.0-33.0 Norm al (applies to non-numeric results) [facility] ([facility] Red Cell Distribution Width 13.2 % 11.5-14.5 Norm al (applies to non-numeric results) [facility] ([facility] ) Mean Corpuscular HGB Conc 32.9 g/dL 32.0-36.5 Normal (applies to non-numeric results) [facility] ([facility] ) Platelet Count, Automated 223 10 150-450 Normal (applies to non-numeric results) [facility] ([facility] ) Lymph % 14.1 % 24.0-44.0 Below low normal [facility] ( [facility] Ascension % 8.8 % 0.0-5.0 Above high normal [facility] ([facility] Neutrophils % 76.2 % 36.0-66.0 Above high normal [facility] ([facility] Immature Granulocyte % 0.5 % 0-3.0 Normal (applies to non-n umeric results) [facility] ([facility] Baso % 0.2 % 0.0-1.0 Normal (applies to non-numeric resul ts) [facility] ([facility] Eos % 0.2 % 0.0-3.0 Normal (applies to non-numeric resul ts) [facility] ([facility] Neutrophils # 4.5 10 1.5-8.5 Normal (applies to non-numeric re sults) [facility] ([facility] Nucleated Red Blood Cell % 0.0 % 0-0 Normal (applies to n on-numeric results) [facility] ([facility] Lymph # 0.8 10 1.5-5.0 Below low normal [facility] ( [facility] Ascension # 0.5 10 0.0-0.8 Normal (applies to non-numeric resul ts) [facility] ([facility] Baso # 0.0 10 0.0-0.2 Normal (applies to non-numeric resul ts) [facility] ([facility] Eos # 0.0 10 0.0-0.5 Normal (applies to non-numeric resul ts) [facility] ([facility] ID Date Data Source [id number] 05/11/2019 12:22:00 AM EST [facility] ([facility] Name Value Range Interpretation Code Description Data Dana rce(s) Supporting Document(s) Influenza A Amplification Laboratory test result Normal (applies to non- numeric results) [facility] ([facility] Negative results do not preclude influen za or RSV virus infection and should not be used as the sole basis for treatment or other patient management decisions. Influenza B Amplification Laboratory test result Normal (applies to non- numeric results) [facility] ([facility] ) Negative results do not preclude influen za or RSV virus infection and should not be used as the sole basis for treatment or other patient management decisions. ID Date Data Source [id number] 05/11/2019 12:22:00 AM EST [facility] ([facility] Name Value Range Interpretation Code Description Data Dana rce(s) Supporting Document(s) Glucose, Fasting 106 mg/dL 70-100 Above high normal [facility] ([facility] Blood Urea Nitrogen 11 mg/dL 7-18 Normal (applies to non-nume fiorella results) [facility] ([facility] Glomerular Filtration Rate Laboratory test result Normal (applies to non- numeric results) [facility] ([facility] ) <content>Units are mL/min/1.73 m2</content>
<content></content>
<content>Chronic Kidney Disease Staging per NKF:</content>
<content></content>
<content>Stage I & II GFR >=60 Normal to Mildly Decreased</content>
<content>Stage III GFR 30-59 Moderately Decreased</content>
<content>Stage IV GFR 15-29 Severely Decreased</content>
<content>Stage V GFR <15 Very Little GFR Left</content>
<content>ESRD GFR <15 on [employer] SERVICE WORKER</content>
<content></content> Sodium Level 139 meq/L 136-145 Normal (applies to non-numeric res ults) [facility] ([facility] Creatinine For GFR 0.77 mg/dL 0.55-1.30 Normal (applies to non -numeric results) [facility] ([facility] Carbon Dioxide Level 30 meq/L 21-32 Normal (applies to non-num thu results) [facility] ([facility] Chloride Level 106 meq/L 98-107 Normal (applies to non-numeric r esults) [facility] ([facility] Potassium Serum 4.0 meq/L 3.5-5.1 Normal (applies to non-numeric results) [facility] ([facility] Anion Gap 3 meq/L 8-16 Below low normal [facility] ( [facility] Calcium Level 8.7 mg/dL 8.8-10.2 Below low normal [facility] ([facility] ID Date Data Source [id number] 05/11/2019 12:22:00 AM EST [facility] ([facility] Name Value Range Interpretation Code Description Data Dana rce(s) Supporting Document(s) CPK Creatine Phosphokinase 67 U/L 26-192 Blanca l (applies to non-numeric results) [facility] ([facility] ) Troponin I Laboratory test result Normal (applies to non-n umeric results) [facility] ([facility] <content>Troponin I Reference Interval f or Siemens [place] LOCI:</content>
<content></content>
<content>99th Percentile= 0.00-0.045 ng/ml</content>
<content></content>
[...] Normal (applies to non-num thu results) [facility] ([facility] <content>DIAGNOSIS CRITERIA</content>
<content>MMB ng/ml Relative Index (RI)</content>
<content>NON-AMI < or = 5 N/A</content>
<content>SOMMER ZONE > 5 < or = 4</content>
<content>AMI > 5 > 4</content>
<content></content> ID Date Data Source [id number] 05/11/2019 12:22:00 AM EST [facility] ([facility]) Name Value Range Interpretation Code Description Data Dana rce(s) Supporting Document(s) Glucose, Fasting 106 mg/dL 70-100 [facility] ([facility]) Blood Urea Nitrogen 11 mg/dL 7-18 [facility] ([facility] Creatinine For GFR 0.77 mg/dL 0.55-1.30 [facility] ([facility]) Glomerular Filtration Rate > 60.0 [facility] ([facility]) <content>Units are mL/min/1.73 m2</content>
<content></content>
<content>Chronic Kidney Disease Staging per NKF:</content>
<content></content>
<content>Stage I & II GFR >=60 Normal to Mildly Decreased</content>
<content>Stage III GFR 30-59 Moderately Decreased</content>
<content>Stage IV GFR 15-29 Severely Decreased</content>
<content>Stage V GFR <15 Very Little GFR Left</content>
<content>ESRD GFR <15 on SUP[employer] SERVICE WORKER</content>
<content></content>
<content></content> Sodium Level 139 meq/L 136-145 [facility] ([facility]) Potassium Serum 4.0 meq/L 3.5-5.1 [facility] ([facility]) Chloride Level 106 meq/L 98-107 [facility] ([facility] Carbon Dioxide Level 30 meq/L 21-32 [facility] ([facility]) Calcium [Mass/volume] in Serum or Plasma 8.7 mg/dL 8.8-10.2 [facility] ([facility]) Anion Gap 3 meq/L 8-16 [facility] ([facility]) ID Date Data Source [id number] 05/11/2019 12:22:00 AM EST [facility] ([facility]) Name Value Range Interpretation Code Description Data Dana rce(s) Supporting Document(s) White Blood Count 5.9 10 4.0-10.0 [facility] ([facility] Hematocrit [Volume Fraction] of Blood by Automated count 41.7 % 3 6.0-47.0 MEDENT ([facility]) Hemoglobin 13.7 g/dL 12.0-15.5 MEDENT ([facility]) Red Blood Count 4.27 10 4.00-5.40 MEDENT ([facility]) Mean Corpuscular Hemoglobin 32.1 pg 27.0-33.0 MEDENT ([facility]) Mean Corpuscular Volume 97.7 fl 80.0-96.0 M EDENT ([facility]) Mean Corpuscular HGB Conc 32.9 g/dL 32.0-36.5 MEDENT ([facility]) Neutrophils % 76.2 % 36.0-66.0 MEDENT ([facility]) Platelet Count, Automated 223 10 150-450 MEDENT ([facility]) Red Cell Distribution Width 13.2 % 11.5-14.5 MEDENT ([facility]) [facility] % 8.8 % 0.0-5.0 MEDENT ([facility] Eos % 0.2 % 0.0-3.0 MEDENT ([facility]) Lymphocytes/100 leukocytes in Blood by Automated count 14.1 % 24. 0-44.0 MEDENT ([facility]) Baso % 0.2 % 0.0-1.0 MEDENT ([facility]) Nucleated Red Blood Cell % 0.0 % 0-0 MED ENT ([facility]) Immature Granulocyte % 0.5 % 0-3.0 MEDENT ([facility]) Lymph # 0.8 10 1.5-5.0 MEDENT ([facility]) [facility] # 0.5 10 0.0-0.8 MEDENT ([facility]) Neutrophils # 4.5 10 1.5-8.5 MEDENT ([facility]) Eos # 0.0 10 0.0-0.5 MEDENT ([facility]) Baso # 0.0 10 0.0-0.2 MEDENT ([facility]) ID Date Data Source [id number] 05/04/2019 12:00:00 AM EST [facility] Nagi Fish DO Patient Name: CHELITA JAMES [facility], [address] Date of : [address], [place] [address] Date of Exam: 05/04/2019PH#: Fax: [phone] EXAM: [...] be madewith formal thyroid ultrasound.Accredited by the [place] [employer] in Vascular CerebroUltrasound.CHANCE Ken/jmcThank you for referring ROWAN JAMES to our office. Electronically Signed - BRIAN SOMMER MD 05/04/19 15:28 Name Value Range Interpretation Code Description Data Dana rce(s) Supporting Document(s) ID Date Data Source [id number] 04/29/2019 12:05:00 PM EST [facility] ([facility] Name Value Range Interpretation Code Description Data Dana rce(s) Supporting Document(s) Thyrotropin [Units/volume] in Serum or Plasma 2.061 ulU/mL 0.60-4.8 [facility] ([facility] ID Date Data Source [id number] 04/29/2019 12:05:00 PM EST [facility] ([facility]) Name Value Range Interpretation Code Description Data Dana rce(s) Supporting Document(s) Thyrotropin [Units/volume] in Serum or Plasma 2.061 ulU/mL 0.60-4.8 [facility] ([facility]) ID Date Data Source [id number] 04/29/2019 12:04:00 PM EST MEDENT ([facility] [...] 68 mg/dL 45-65 Above high normal MEDENT ([facility] ) CLASSIFICATION CHOLESTEROL [...] 114 Calc 75-129 MEDENT ([facility] CLASSIFICATION CHOLESTEROL FO R ADULTS [...] YEARS EXCLUSIVE. Cho/HDL Ratio 3.2 CALC MEDENT ([facility] CLASSIFICATION CHOLESTEROL FO R [...] 2-19 YEARS EXCLUSIVE. ID Date Data Source [id number] 04/29/2019 12:04:00 PM EST MEDENT ([facility]) Name Value Range Interpretation Code Description Data Dana rce(s) Supporting Document(s) Chol 219 mg/dL 0-200 MEDENT ([facility]) CLASSIFICATION CHOLESTEROL FO R ADULTS [...] Serum or Plasma 68 mg/dL 45-6 5 [facility] ([facility]) CLASSIFICATION CHOLESTEROL FO R ADULTS CHILDREN/ADOLESCENTS* [...] YEARS EXCLUSIVE. LDL_C 114 Calc 75-129 MEDENT ([facility]) CLASSIFICATION CHOLESTEROL FO R ADULTS [...] YEARS EXCLUSIVE. Trig 180 mg/dL 40-200 MEDENT ([facility]) CLASSIFICATION CHOLESTEROL FO R ADULTS [...] YEARS EXCLUSIVE. Cho/HDL Ratio 3.2 CALC MEDENT ([facility] ) CLASSIFICATION CHOLESTEROL FO R [...] 2-19 YEARS EXCLUSIVE. ID Date Data Source [id number] 03/22/2019 11:04:00 AM EST MED[facility] ([facility] Name Value Range Interpretation Code Description Data Dana rce(s) Supporting Document(s) Color Urine Laboratory test result M ROXY ([facility] Appearance of Urine Laboratory test result MEDENT ([facility] Specific [place] 1.020 1.00-1.03 [facility] ([facility] Urobilinogen 0.2 EU/dl 0.2-1.0 MEDENT ([facility] Nitrite Laboratory test result MARY ([facility] Leukocytes Laboratory test result ME FRIAS ([facility] ID Date Data Source [id number] 03/22/2019 11:03:00 AM EST MEDJONA ([facility] Name Value Range Interpretation Code Description Data Dana rce(s) Supporting Document(s) Glu 106 mg/dL 70-110 MEDJONA ([facility] CHRONIC KIDNEY DISEASE STAGING [...] HCT IS 5% LESS SOURCE FOR DATA: [employer] 1800 OPERATION MANUAL( AUTOMATED BLOOD COUNTS AND DIFF.) APPENDIX B-3 BUN 14 mg/dL 11-13 [facility] ([facility] CHRONIC KIDNEY DISEASE STAGING PER [...] HCT IS 5% LESS SOURCE FOR DATA: [employer] 1800 OPERATION MANUAL( AUTOMATED BLOOD COUNTS AND DIFF.) APPENDIX B-3 Creat 0.7 mg/dL 0.5-1.0 [facility] ([facility] CHRONIC KIDNEY DISEASE STAGING [...] HCT IS 5% LESS SOURCE FOR DATA: [employer] DYN 1800 OPERATION MANUAL( AUTOMATED BLOOD COUNTS AND DIFF.) APPENDIX B-3 BUN/Creatinine Ratio 19.6 CALC MEDENT ([facility] CHRONIC KIDNEY DISEASE STAGING [...] HCT IS 5% LESS SOURCE FOR DATA: [employer]YN 1800 OPERATION MANUAL( AUTOMATED BLOOD COUNTS AND DIFF.) APPENDIX B-3 Co2 24.3 mmol/L 22.0-29.0 MEDENT ([facility] CHRONIC KIDNEY DISEASE STAGING PER [...] HCT IS 5% LESS SOURCE FOR DATA: [employer] 1800 OPERATION MANUAL( AUTOMATED BLOOD COUNTS AND DIFF.) APPENDIX B-3 CA 10.0 mg/dL 8.6-10.2 [facility] CHRONIC KIDNEY DISEASE STAGING PER [...] APPENDIX B-3 Na 137 mmol/L 136-145 MEDENT ([facility] CHRONIC KIDNEY DISEASE STAGING PER [...] CL 103.3 mmol/L 98.0-107.0 MARY ([facility] CHRONIC KIDNEY DISEASE STAGING [...] HCT IS 5% LESS SOURCE FOR DATA: [employer] 1800 OPERATION MANUAL( AUTOMATED BLOOD COUNTS AND DIFF.) APPENDIX B-3 eGFR 93 # MEDENT ( [facility] CHRONIC KIDNEY DISEASE [...] HCT IS 5% LESS SOURCE FOR DATA: [employer] 1800 OPERATION MANUAL( AUTOMATED BLOOD COUNTS AND DIFF.) APPENDIX B-3 Anion Gap 13 mmol/L [facility] ([facility] CHRONIC KIDNEY DISEASE STAGING PER [...] HCT IS 5% LESS SOURCE FOR DATA: [employer] 1800 OPERATION MANUAL( AUTOMATED BLOOD COUNTS AND DIFF.) APPENDIX B-3 eGFR Non-Afr. Citizen [place] 80 # MEDENT ([facility] CHRONIC KIDNEY DISEASE [...] HCT IS 5% LESS SOURCE FOR DATA: [employer] 1800 OPERATION MANUAL( AUTOMATED BLOOD COUNTS AND DIFF.) APPENDIX B-3 ID Date Data Source [id number] 03/22/2019 11:03:00 AM MARYAN HERNANDEZ ([facility] Name Value Range Interpretation Code Description Data Dana rce(s) Supporting Document(s) WBC 6.7 10E3/uL 4.1-10.9 MARY ([facility] CHRONIC KIDNEY DISEASE STAGING PER [...] HCT IS 5% LESS SOURCE FOR DATA: [employer] 1800 OPERATION MANUAL( AUTOMATED BLOOD COUNTS [...] HCT IS 5% LESS SOURCE FOR DATA: [employer] 1800 OPERATION MANUAL( AUTOMATED BLOOD COUNTS AND [...] HCT IS 5% LESS SOURCE FOR DATA: [employer] 1800 OPERATION MANUAL( AUTOMATED BLOOD COUNTS AND DIFF.) APPENDIX B-3 HCT 41.2 % 37.0-51.0 [facility] CHRONIC KIDNEY DISEASE STAGING [...] DIFF.) APPENDIX B-3 MCHC 33.3 g/dL 31.0-36.0 [facility] ([facility] CHRONIC KIDNEY DISEASE STAGING [...] MCH 32.7 pg 26.0-32.0 Above high normal [facility] ([facility] CHRONIC KIDNEY DISEASE STAGING [...] HCT IS 5% LESS SOURCE FOR DATA: [employer] 1800 OPERATION MANUAL( AUTOMATED BLOOD COUNTS AND DIFF.) APPENDIX B-3 RDW-CV 13.0 % 11.5-14.5 [facility] ([facility] CHRONIC KIDNEY DISEASE STAGING PER [...] HCT IS 5% LESS SOURCE FOR DATA: [employer] 1800 OPERATION MANUAL( AUTOMATED BLOOD COUNTS AND DIFF.) APPENDIX B-3 PLT 281 10E3/uL 140-440 [facility] ([facility] CHRONIC KIDNEY DISEASE STAGING PER [...] HCT IS 5% LESS SOURCE FOR DATA: [employer]YN 1800 OPERATION MANUAL( AUTOMATED BLOOD COUNTS AND DIFF.) APPENDIX B-3 Lym% 23.1 % 10.0-58.5 [facility] CHRONIC KIDNEY DISEASE STAGING [...] HCT IS 5% LESS SOURCE FOR DATA: [employer] 1800 OPERATION MANUAL( AUTOMATED BLOOD COUNTS AND DIFF.) APPENDIX B-3 MXD% 5.8 % 0.1-24.0 [facility] ([facility] CHRONIC KIDNEY DISEASE STAGING [...] HCT IS 5% LESS SOURCE FOR DATA: [employer] 1800 OPERATION MANUAL( AUTOMATED BLOOD COUNTS AND [...] HCT IS 5% LESS SOURCE FOR DATA: [employer] DYN 1800 OPERATION MANUAL( AUTOMATED BLOOD COUNTS AND DIFF.) APPENDIX B-3 Lym# 1.5 10E3/uL 0.6-4.1 MEDENT ([facility] CHRONIC KIDNEY DISEASE STAGING PER [...] HCT IS 5% LESS SOURCE FOR DATA: [employer] 1800 OPERATION MANUAL( AUTOMATED BLOOD COUNTS AND DIFF.) APPENDIX B-3 Neut# 4.8 % 2.0-7.8 [facility] ([facility] CHRONIC KIDNEY DISEASE STAGING [...] HCT IS 5% LESS SOURCE FOR DATA: [employer] 1800 OPERATION MANUAL( AUTOMATED BLOOD COUNTS AND DIFF.) APPENDIX B-3 MXD# 0.4 10E3/uL 0.0-1.8 [facility] CHRONIC KIDNEY DISEASE STAGING PER NKF: [...] DIFF.) APPENDIX B-3 MPV 10.5 fL 9.0-13.0 [facility] ([facility] CHRONIC KIDNEY DISEASE STAGING PER [...] HCT IS 5% LESS SOURCE FOR DATA: [employer] 1800 OPERATION MANUAL( AUTOMATED BLOOD COUNTS AND DIFF.) APPENDIX B-3 Procedure Social History Code Duration Value Status Description Data Source(s ) Smoking 01/11/2020 12:00:00 AM EDT Patient is a former smoker completed Patient is a former smoker MARY ([facility] ) Vital Signs ID Date Data Source UNK Name Value Range Interpretation Code Description Data Source(s) Oxygen saturation in Arterial blood by Pulse oximetry 97 % 97 % MARY ([facility] Body mass index (BMI) [Ratio] 26.1 kg/m2 26.1 k g/m2 MARY ([facility] [place] body weight 110 [lb_av] 110 [lb_av] ADAMEN T ([facility] Body weight 145.00 [lb_av] 145.00 [lb_av] ADAMEN T ([facility] Body height 62.50 [in_i] 62.50 [in_i] MARY ([facility] 5'2.50" Respiratory rate 18 /min 18 /min MARY ( [facility] Heart rate 94 /min 94 /min MARY ([facility] Body temperature 98.2 [degF] 98.2 [degF] MARY ( [facility] Diastolic blood pressure 64 mm[Hg] 64 mm[Hg] MARY ([facility] Systolic blood pressure 100 mm[Hg] 100 mm[Hg] M EDENT ([facility] Oxygen saturation in Arterial blood by Pulse oximetry 97 % 97 % MEDENT ([facility] Body mass index (BMI) [Ratio] 26.5 kg/m2 26.5 k g/m2 MED[facility] ([facility] [place] body weight 110 [lb_av] 110 [lb_av] MEDEN T ([facility] Body weight 147.00 [lb_av] 147.00 [lb_av] MEDEN T ([facility] Body height 62.50 [in_i] 62.50 [in_i] MEDENT ([facility] 5'2.50" Respiratory rate 18 /min 18 /min MEDENT ( [facility] Heart rate 72 /min 72 /min MEDENT ([facility] Body temperature 97.1 [...] k g/m2 MEDENT ([facility] [place] body weight 110 [lb_av] 110 [lb_av] MEDEN T ([facility] Body weight 144.00 [lb_av] 144.00 [lb_av] MEDEN T ([facility] Body height 62.50 [in_i] 62.50 [in_i] MEDENT ([facility] 5'2.50" Respiratory rate 18 /min 18 /min MEDENT ( [facility] Heart rate 98 /min 98 /min MEDENT ([facility] Body temperature 97.4 [degF] 97.4 [degF] MEDENT ([facility] Diastolic blood pressure 68 mm[Hg] 68 mm[Hg] MEDENT ([facility] Systolic blood pressure 130 mm[Hg] 130 mm[Hg] M EDENT ([facility] [place] body weight 110 [lb_av] 110 [lb_av] MEDEN T ([facility] Body weight 146.00 [lb_av] 146.00 [lb_av] MEDEN T ([facility] Body height 62.50 [in_i] 62.50 [in_i] MEDENT ([facility] 5'2.50" Respiratory rate 18 /min 18 /min MEDENT ( [facility] Heart rate 90 /min 90 /min MEDENT ([facility] Body temperature 97.2 [degF] 97.2 [degF] MEDENT ([facility] Diastolic blood pressure 58 mm[Hg] 58 mm[Hg] MEDENT ([facility] Systolic blood pressure 120 mm[Hg] 120 mm[Hg] M ROXY ([facility] Oxygen saturation in Arterial blood by Pulse oximetry 93 % 93 % ADAMENT ([facility] Body mass index (BMI) [Ratio] 26.3 kg/m2 26.3 k g/m2 MEDENT ([facility] Oxygen saturation in Arterial blood by Pulse oximetry 95 % 95 % MARY ([facility] ([place]), ([facility] [employer]) Body mass index (BMI) [Ratio] 26.6 kg/m2 26.6 k g/m2 MEDENT ([facility] Body weight 148.00 [lb_av] 148.00 [lb_av] MEDEN T ([facility] with back brace Body height 62.50 [in_i] 62.50 [in_i] MEDENT ([facility] 5'2.50" Respiratory rate 18 /min [...] weight 147.00 [lb_av] 147.00 [lb_av] MEDEN T ([facility] Body height 62.50 [in_i] 62.50 [in_i] MEDENT ([facility] 5'2.50" Respiratory rate 18 [...] weight 144.00 [lb_av] 144.00 [lb_av] MEDEN T ([facility] Body height 62.50 [in_i] 62.50 [in_i] MEDENT ([facility] 5'2.50" Respiratory rate 16 /min 16 /min MEDENT ( [facility] Heart rate 72 /min 72 /min MEDENT ([facility] Body temperature 98.2 [degF] 98.2 [degF] MEDENT ([facility] Diastolic blood pressure 70 mm[Hg] 70 mm[Hg] MEDENT ([facility] Systolic blood pressure 110 mm[Hg] 110 mm[Hg] M [facility] Oxygen saturation in Arterial blood by Pulse oximetry 96 % 96 % MARY ([facility] ([employer]), ([facility] [employer]) Diastolic blood pressure 82 mm[Hg] 82 mm[Hg] [facility] ([facility]) Systolic blood pressure 120 mm[Hg] 120 mm[Hg] M [facility] ([facility]) Body weight 64.581 kg 64.581 kg [facility] ([facility]) Body mass index (BMI) [Ratio] 25.2 kg/m2 25.2 k g/m2 [facility] ([facility]) Body weight 142.38 [lb_av] 142.38 [lb_av] [facility] ([facility]) Body height 63 [in_i] 63 [in_i] [facility] ([facility]) 5'3" Oxygen saturation in Arterial blood by Pulse oximetry 97 % 97 % MEDJONA ([facility] ([employer]), ([employer]) Body mass index (BMI) [Ratio] 25.6 kg/m2 25.6 k g/m2 MEDENT ([facility] Body weight 142.00 [lb_av] 142.00 [lb_av] MEDEN T ([facility] Body height 62.50 [in_i] 62.50 [in_i] MEDENT ([facility] 5'2.50" Respiratory rate 20 /min 20 /min MEDENT ( [facility] Heart rate 88 /min 88 /min MEDENT ([facility] Body temperature 98.3 [degF] 98.3 [degF] MEDENT ([facility] Diastolic blood pressure 70 mm[Hg] 70 mm[Hg] MEDENT ([facility] Systolic blood pressure 100 mm[Hg] 100 mm[Hg] M EDENT ([facility] Oxygen saturation in Arterial blood by Pulse oximetry 94 % 94 % MARY ([facility] Body mass index (BMI) [Ratio] 26.1 kg/m2 26.1 k g/m2 MEDENT ([facility] Body weight 145.00 [lb_av] 145.00 [lb_av] MEDEN T ([facility] Body height 62.50 [in_i] 62.50 [in_i] MEDENT ([facility] 5'2.50" Respiratory rate 18 /min 18 /min MEDENT ( [facility] Heart rate 86 /min 86 /min MEDJONA ([facility] Body temperature 97.7 [degF] 97.7 [degF] MEDJONA ([facility] Diastolic blood pressure 68 mm[Hg] 68 mm[Hg] MEDENT ([facility] Systolic blood pressure 116 mm[Hg] 116 mm[Hg] M EDENT ([facility] Oxygen saturation in Arterial blood by Pulse oximetry 96 % 96 % MEDENT ([facility]) Body mass index (BMI) [Ratio] 27.6 kg/m2 27.6 k g/m2 MEDENT ([facility]) Body weight 146.12 [lb_av] 146.12 [lb_av] MEDEN T ([facility]) Body height 61 [in_i] 61 [in_i] MEDENT ([facility]) 5'1" Heart rate 63 /min 63 /min MEDENT ([facility]) Diastolic blood pressure 62 mm[Hg] 62 mm[Hg] MEDENT ([facility]) Systolic blood pressure 110 mm[Hg] 110 mm[Hg] M EDENT ([facility]) Oxygen saturation in Arterial blood by Pulse oximetry 95 % 95 % MARY ([facility] ([employer] [place]), ([employer]) Body mass index (BMI) [Ratio] 25.9 kg/m2 25.9 k g/m2 MEDENT ([facility] Body weight 144.00 [lb_av] 144.00 [lb_av] MEDEN T ([facility] Body height 62.50 [in_i] 62.50 [in_i] MEDENT ([facility] 5'2.50" Respiratory rate 16 /min 16 /min MEDENT ( [facility] Heart rate 88 /min 88 /min MEDENT ([facility] Body temperature 98.1 [degF] 98.1 [degF] MEDENT ([facility] Diastolic blood pressure 80 mm[Hg] 80 mm[Hg] MEDENT ([facility] Systolic blood pressure 120 mm[Hg] 120 mm[Hg] M EDENT ([facility] Oxygen saturation in Arterial blood by Pulse oximetry 93 % 93 % MEDENT ([facility] Body mass index (BMI) [Ratio] 26.6 kg/m2 26.6 k g/m2 MEDENT ([facility] Body weight 148.00 [lb_av] 148.00 [lb_av] MEDEN T ([facility] Body height 62.50 [in_i] 62.50 [in_i] MEDENT ([facility] 5'2.50" Respiratory rate 14 /min 14 /min MEDENT ( [facility] Heart rate 82 /min 82 /min MEDENT ([facility] Body temperature 97.9 [degF] 97.9 [degF] MEDENT ([facility] Diastolic blood pressure 70 mm[Hg] 70 mm[Hg] MEDENT ([facility] Systolic blood pressure 124 mm[Hg] 124 mm[Hg] M EDENT ([facility] Oxygen saturation in Arterial blood by Pulse oximetry 97 % 97 % MEDENT ([facility] Body mass index (BMI) [Ratio] 26.1 kg/m2 26.1 k g/m2 MEDENT ([facility] Body weight 145.00 [lb_av] 145.00 [lb_av] MEDEN T ([facility] Body height 62.50 [in_i] 62.50 [in_i] MEDENT ([facility] 5'2.50" Respiratory rate 18 /min 18 /min MEDENT ( [facility] Heart rate 78 /min 78 /min MEDENT ([facility] Body temperature 97.8 [degF] 97.8 [degF] MEDENT ([facility] Diastolic blood pressure 68 mm[Hg] 68 mm[Hg] MEDENT ([facility] Systolic blood pressure 130 mm[Hg] 130 mm[Hg] [facility] Body mass index (BMI) [Ratio] 26.6 kg/m2 26.6 k g/m2 MEDENT ([facility]) Body height 63 [in_i] 63 [in_i] MEDENT ([facility]) 5'3" Body weight 150.00 [lb_av] 150.00 [lb_av] MEDEN T ([facility], [facility]) Body temperature 98.9 [degF] 98.9 [degF] MEDENT ([facility], [facility]) Oxygen saturation in Arterial blood by Pulse oximetry 92 % 92 % [facility] ([facility]) Respiratory rate 16 /min 16 /min MEDENT ( [facility], [facility]) Heart rate 84 /min 84 /min MEDENT ([facility], [facility]) Diastolic blood pressure 72 mm[Hg] 72 mm[Hg] [facility]) Systolic blood pressure 138 mm[Hg] 138 mm[Hg] M [facility] ([facility]) Body weight 68.040 kg 68.040 kg MEDENT ([facility], ) Body mass index (BMI) [Ratio] 26.6 kg/m2 26.6 k g/m2 MEDENT ([facility], ) Body weight 150.00 [lb_av] 150.00 [lb_av] MEDEN T ([facility], ) Body height 63 [in_i] 63 [in_i] MEDENT ([facility], ) 5'3" Oxygen saturation in Arterial blood by Pulse oximetry 98 % 98 % MEDENT ([facility] ([employer]), ([employer]) Body mass index (BMI) [Ratio] 27.4 kg/m2 27.4 k g/m2 MEDENT ([facility] Body weight 152.00 [lb_av] 152.00 [lb_av] MEDEN T ([facility] Body height 62.50 [in_i] 62.50 [in_i] MEDENT ([facility] 5'2.50" Respiratory rate 16 /min 16 /min MEDENT ( [facility] Heart rate 72 /min 72 /min [facility] ([facility] Body temperature 98.7 [degF] 98.7 [degF] [facility] ([facility] Diastolic blood pressure 60 mm[Hg] 60 mm[Hg] [facility] ([facility] Systolic blood pressure 102 mm[Hg] 102 mm[Hg] M EDENT ([facility] Oxygen saturation in Arterial blood by Pulse oximetry 94 % 94 % [facility] ([facility] Body mass index (BMI) [Ratio] 26.8 kg/m2 26.8 k g/m2 [facility] ([facility] Body weight 149.00 [lb_av] 149.00 [lb_av] MEDEN T ([facility] Body height 62.50 [in_i] 62.50 [in_i] [facility] ([facility] 5'2.50" Respiratory rate 18 /min 18 /min [facility] ( [facility] Heart rate 80 /min 80 /min [facility] ([facility] Body temperature 98.0 [degF] 98.0 [degF] [facility] ([facility] Diastolic blood pressure 60 mm[Hg] 60 mm[Hg] [facility] ([facility] Systolic blood pressure 116 mm[Hg] 116 mm[Hg] M EDENT ([facility] Systolic blood pressure 127 mm[Hg] 127 mm[Hg] [facility] Body mass index (BMI) [Ratio] 25.7 kg/m2 25.7 k g/m2 [facility]) Body height 63 [in_i] 63 [in_i] [facility]) 5'3" Body weight 145.00 [lb_av] 145.00 [lb_av] [facility] T ([facility], [facility]) Body temperature 98.4 [degF] 98.4 [degF] [facility] ([facility]) Oxygen saturation in Arterial blood by Pulse oximetry 93 % 93 % [facility] ([facility]) Heart rate 85 /min 85 /min [facility] ([facility], [facility]) Diastolic blood pressure 78 mm[Hg] 78 mm[Hg] [facility] ([facility]) Patient Treatment Plan of Care Planned Activity Planned Date Details Description Data Source (s) Tums Ultra 1000 1000 MG 12/16/2019 01:00:00 AM EDT [facility]) Alendronate Sodium 35 MG 11/30/2019 01:00:00 AM EDT [facility]) Calcium + D3 600-800 MG-UNIT 11/30/2019 01:00:00 AM EDT [facility]) Levothyroxine Sodium 75 MCG 11/30/2019 01:00:00 AM EDT [facility]) Omeprazole 40 MG 11/30/2019 01:00:00 AM EDT [facility]) Vitamin D3 5000 UNIT 11/30/2019 01:00:00 AM EDT [facility]) Acetaminophen-Codeine 300-30 MG 11/30/2019 01:00:00 AM EDT [facility]) Tylenol Extra Strength 500 MG 11/30/2019 01:00:00 AM EDT [facility] ([facility])
[2020-04-04] MEDS ORDERED: fentaNYL 100 MCG/2 ML INJECTION (J3010) IV ONE ×2 (16:45→19:00)
[2020-04-04 17:00] LABS: INR 0.9; PROTHROMBIN TIME 12.4 SECONDS (12.5-14.3)
[2020-04-04 17:01] LABS: PARTIAL THROMBOPLASTIN TIME 29.7 SECONDS (24.2-38.5)
[2020-04-04 17:15] LABS: BLOOD UREA NITROGEN 20 MG/DL (7-18); CARBON DIOXIDE LEVEL 30 MEQ/L (21-32); CHLORIDE LEVEL 106 MEQ/L (98-107); CK-MB VALUE MASS < 1.0 NG/ML (<3.6); CPK CREATINE PHOSPHOKINASE 124 U/L (26-192); CREATININE FOR GFR 0.61 MG/DL (0.55-1.30); GLOMERULAR FILTRATION RATE > 60.0 (>32); GLUCOSE, FASTING 89 MG/DL (70-100); MB/CK RELATIVE INDEX 0.81 (< OR =4); POTASSIUM SERUM 5.3 MEQ/L (3.5-5.1); SODIUM LEVEL 138 MEQ/L (136-145); TROPONIN I < 0.02 NG/ML (< 0.10)
--- NOTE | 2020-04-04 17:28 | ECGEPIP ---
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
--- NOTE | 2020-04-04 17:51 | REP ---
INDICATION: left shoulder pain; further evaluation per ortho req.. COMPARISON: None. TECHNIQUE: Three views of the shoulder were performed. FINDINGS: The proximal humerus is fractured seen in conjunction with heavy marginal osteophytosis and slight impaction. The humeral head region is demineralized. I cannot rule out the possibility of pathological fracture the age of the fracture cannot be determined by this exam.. IMPRESSION: Proximal humeral fracture and chronic changes as described above. Although there is no prior shoulder exam to review review of a prior PA view of the chest of 05/11/2019 shows a significant difference in the appearance of the left humeral head on that exam compared to this shoulder exam.. If, however, clinically a shoulder fractures not suspect that I would urge CT at this time <Electronically signed by Kiel Nash > 04/04/20 [id number]
--- NOTE | 2020-04-04 17:54 | REP ---
INDICATION: left wrist reduction. COMPARISON: Earlier today TECHNIQUE: Four spot views obtained status post closed reduction using a portable C-arm device FINDINGS: The previously described radial fracture has been reduced. The alignment is significantly improved. The final image shows overlying casting material obscuring the bony detail IMPRESSION: Status post reduction as described above <Electronically signed by Kiel Nash > 04/04/20 [id number]
[2020-04-04 19:05] LABS: RSV AMPLIFICATION NEGATIVE (NEGATIVE)
--- OUTSIDE RECORDS SUMMARY | 2020-04-04 19:07 | CCD ---
Author Author [facility] Organization [facility] Address Unknown Phone Unavailable Care Team Providers Care Data Processing Systems Consultant Name Role Phone Barraclough, Lacey PA Unavailable [...] Unavailable RADHA, ACACIA PA Unavailable Unavailable RADHA, ACAICA PA Unavailable Unavailable RADHA, ACACIA PA Unavailable Unavailable RADHA, ACACIA PA Unavailable Unavailable RADHA, ACACIA PA Unavailable Unavailable RADHA, ACACIA PA Unavailable Unavailable RADHA, ACACIA PA Unavailable Unavailable RADHA, ACACIA PA Unavailable Unavailable RADHA, ACACIA PA Unavailable Unavailable WATSON, M JANY MAKEUP INSTRUCTOR Unavailable Unavailable WATSON, M JANY MAKEUP INSTRUCTOR Unavailable Unavailable WATSON, M JANY MAKEUP INSTRUCTOR Unavailable Unavailable WATSON, M JANY MAKEUP INSTRUCTOR Unavailable Unavailable WATSON, M JANY MAKEUP INSTRUCTOR Unavailable Unavailable WATSON, M JANY MAKEUP INSTRUCTOR Unavailable Unavailable WATSON, M JANY MAKEUP INSTRUCTOR Unavailable Unavailable WATSON, M JANY MAKEUP INSTRUCTOR Unavailable Unavailable WATSON, M JANY MAKEUP INSTRUCTOR Unavailable Unavailable WATSON, M JANY MAKEUP INSTRUCTOR Unavailable Unavailable WATSON, M JANY MAKEUP INSTRUCTOR Unavailable Unavailable WATSON, M JANY MAKEUP INSTRUCTOR Unavailable Unavailable WATSON, M JANY MAKEUP INSTRUCTOR Unavailable Unavailable WATSON, M JANY MAKEUP INSTRUCTOR Unavailable Unavailable WATSON, M JANY MAKEUP INSTRUCTOR Unavailable Unavailable WTASON, M JANY MAKEUP INSTRUCTOR Unavailable Unavailable WATSON, M JANY MAKEUP INSTRUCTOR Unavailable Unavailable WATSON, M JANY MAKEUP INSTRUCTOR Unavailable Unavailable WATSON, M JANY MAKEUP INSTRUCTOR Unavailable Unavailable WATSON, M JANY MAKEUP INSTRUCTOR Unavailable Unavailable WATSON, M JANY MAKEUP INSTRUCTOR Unavailable Unavailable WATSON, M JANY MAKEUP INSTRUCTOR Unavailable Unavailable WATSON, M JANY MAKEUP INSTRUCTOR Unavailable Unavailable WATSON, M JANY MAKEUP INSTRUCTOR Unavailable Unavailable WATSON, M JANY MAKEUP INSTRUCTOR Unavailable Unavailable WATSON, M JANY MAKEUP INSTRUCTOR Unavailable Unavailable WATSON, M JANY MAKEUP INSTRUCTOR Unavailable Unavailable WATSON, M JANY MAKEUP INSTRUCTOR Unavailable Unavailable WATSON, M JANY MAKEUP INSTRUCTOR Unavailable Unavailable WATSON, M JANY MAKEUP INSTRUCTOR Unavailable Unavailable WATSON, M JANY MAKEUP INSTRUCTOR Unavailable Unavailable WATSON, M JANY MAKEUP INSTRUCTOR Unavailable Unavailable WATSON, M JANY MAKEUP INSTRUCTOR Unavailable Unavailable WATSON, M JANY MAKEUP INSTRUCTOR Unavailable Unavailable WATSON, M JANY MAKEUP INSTRUCTOR Unavailable Unavailable WATSON, M JANY MAKEUP INSTRUCTOR Unavailable Unavailable WATSON, M JANY MAKEUP INSTRUCTOR Unavailable Unavailable WATSON, M JANY MAKEUP INSTRUCTOR Unavailable Unavailable WATSON, M JANY MAKEUP INSTRUCTOR Unavailable Unavailable WATSON, M JANY MAKEUP INSTRUCTOR Unavailable Unavailable WATSON, M JANY MAKEUP INSTRUCTOR Unavailable Unavailable WATSON, M JANY MAKEUP INSTRUCTOR Unavailable Unavailable WATSON, M JANY MAKEUP INSTRUCTOR Unavailable Unavailable WATSON, M JANY MAKEUP INSTRUCTOR Unavailable Unavailable Beau WATSON JANY MAKEUP INSTRUCTOR Unavailable Unavailable WATSON, M JANY MAKEUP INSTRUCTOR Unavailable Unavailable WATSON, M JANY MAKEUP INSTRUCTOR Unavailable Unavailable WATSON, M JANY MAKEUP INSTRUCTOR Unavailable Unavailable WATSON, M JANY MAKEUP INSTRUCTOR Unavailable Unavailable Beau WATSON JANY MAKEUP INSTRUCTOR Unavailable Unavailable WATSON, M JANY MAKEUP INSTRUCTOR Unavailable Unavailable WATSON, M JANY MAKEUP INSTRUCTOR Unavailable Unavailable WATSON, Beau JANY MAKEUP INSTRUCTOR Unavailable Unavailable WATSON, M JANY MAKEUP INSTRUCTOR Unavailable Unavailable WATSON, M JANY MAKEUP INSTRUCTOR Unavailable Unavailable WATSON, Beau JANY MAKEUP INSTRUCTOR Unavailable Unavailable Beau WATSONE MAKEUP INSTRUCTOR Unavailable Unavailable WATSON, Beau JANY MAKEUP INSTRUCTOR Unavailable Unavailable MD AMBREEN ZHAO Unavailable Unavailable Verbeck Jr, Lane Harish PA Unavailable Unavailable Verbeck Jr, Lane Harish PA Unavailable Unavailable Verbeck Jr, Joel Harish PA Unavailable Unavailable Verbeck Jr, Lane Harish PA Unavailable Unavailable Verbeck Jr, Lane Harish PA Unavailable Unavailable Verbeck Jr, Joel Harish PA Unavailable Unavailable Verbeck Jr, Lane Harish PA Unavailable Unavailable Verbeck Jr, Lane Harish PA Unavailable Unavailable Verbeck Jr, Lane Harish PA Unavailable Unavailable Verbeck Jr, Joel Harish PA Unavailable Unavailable Verbeck Jr, Joel Harish PA Unavailable Unavailable Verbeck Jr, Lane Harish PA Unavailable Unavailable Verbeck Jr, Lane Harish PA Unavailable Unavailable Verbeck Jr, Joel Harish PA Unavailable Unavailable Verbeck Jr, Lane Harish PA Unavailable Unavailable Verbeck Jr, Lane Harish PA Unavailable Unavailable Verbeck Jr, Joel Harish PA Unavailable Unavailable Verbeck Jr, Lane Harish PA Unavailable Unavailable Verbeck Jr, Lane Harish PA Unavailable Unavailable Verbeck Jr, Lane Harish PA Unavailable Unavailable Verbeck Jr, Lane Harish PA Unavailable Unavailable Verbeck Jr, Joel Harish PA Unavailable Unavailable Verbeck Jr, Lane Harish PA Unavailable Unavailable Verbeck Jr, Lane Harish PA Unavailable Unavailable Verbeck Jr, Lane Harish PA Unavailable Unavailable Verbeck Jr, Lane Harish PA Unavailable Unavailable Verbeck Jr, Lane Harish PA Unavailable Unavailable Verbeck Jr, Lane Harish PA Unavailable Unavailable Verbeck Jr, Joel Harish PA Unavailable Unavailable Verbeck Jr, Lane Harish PA Unavailable Unavailable Verbeck Jr, Joel Harish PA Unavailable Unavailable Verbeck Jr, Lane Harish PA Unavailable Unavailable Verbeck Jr, Lane Harish PA Unavailable Unavailable Verbeck Jr, Lane Harish PA Unavailable Unavailable Verbeck Jr, Lane Harish PA Unavailable Unavailable Verbeck Jr, Lane Harish PA Unavailable Unavailable Fish, J Nagi [...] MARIA INES PA Unavailable Unavailable LETTIERE, A MARAI INES PA Unavailable Unavailable LETTIERE, A MARIA [...] is protected by Article 27-F of the [facility] Public Health law. If you continue you may have access to information: Regarding HIV / AIDS; Provided by facilities licensed or operated by the [facility] Office of Mental Health; or Provided by the [facility] Office for People With Developmental Disabilities. If such information is present, then the following [facility] mandated warning applies: This information [...] law may result in a fine or nursing home sentence or both. A general authorization for the release of medical or other information is NOT sufficient authorization for further disc losure. Allergies and Adverse Reactions Type Description Substance Reaction Status Data Source(s ) Penicillin Penicillin Penicillin active NETSMART ([facility]) Family History Family Member Name Family Member Gender Family Member Status Date o f Status Description Data Source(s) Unknown Unknown Problem MEDENT ([facility]) Encounters Encounter Providers Location Date Indications Data Source(s ) Office Visit Attender: MARIA INES KHAN Physical Therapy 01/27/2020 12:00:00 PM EST MEDENT ([facility]) Outpatient Attender: Nagi Harden [place] Office 01/11/2020 01:30:0 0 PM EDT MED[facility] ([facility] Attender: [facility] 12/21/2019 01:00:00 PM EDT [facility] Office Visit Attender: MARIA INES KHAN Physical Therapy 12/16/2019 03:00:00 PM EDT MEDENT ([facility]) Outpatient Attender: Lacey pedroza 12/16/2019 01:00:00 PM EDT MED[facility] ([facility] 11/30/2019 01:00:00 AM EDT - 020 09:50:24 AM EDT NETSMART ([facility]) Outpatient Attender: Lacey pedroza 11/23/2019 01:00:00 PM EDT MED[facility] ([facility] Office Visit Attender: MARIA INES KHAN Physical Therapy 11/19/2019 01:45:00 PM EDT MEDENT ([facility]) Outpatient Attender: aLcey KHAN [place] [facility] [place] 11/16/2019 02:40:00 PM EDT [facility] ([facility] Office Visit Attender: NANCY STEPHENS MD Physical Therapy 09:15:00 AM EDT MEDENT ([facility]) Outpatient Attender: Nagi Harden [place] [facility] 11/09/2019 03:00:0 0 PM EDT MEDENT ([facility] Emergency Attender: NANCY STEPHENS MD Physical Therapy 04:47:00 PM EDT MEDENT ([facility]) Outpatient Attender: Nagi Harden [place] [facility] 09/02/2019 01:00:0 0 PM EDT MEDENT ([facility] Outpatient Referrer: Nagi Harden 08/02/2019 05:43:00 AM E DT [facility] Outpatient Attender: Nagi Harden [place] [facility] 07/29/2019 02:30:0 0 PM EDT MEDENT ([facility] Outpatient Attender: Lacey KHAN [place] [facility] 07/21/2019 10:40:00 AM EDT MED[facility] ([facility] Outpatient Attender: Alisson Harden MD Physical Therapy 06/23 11:00:00 AM EDT MEDENT ([facility]) Outpatient Referrer: Nagi Harden 06/24/2019 04:20:00 AM E DT [facility] Outpatient Referrer: Nagi Harden 06/17/2019 03:15:00 PM E DT [facility] Outpatient Referrer: Nagi Harden 06/17/2019 03:14:00 PM E DT [facility] Outpatient Referrer: Nagi Harden 06/17/2019 03:10:00 PM E DT [facility] Outpatient Attender: Nagializa Harden [place] Office 06/17/2019 01:45:0 0 PM EDT MEDENT ([facility] Outpatient Attender: Nagializa Harden [place] Office 05/27/2019 01:45:0 0 PM EST MEDENT ([facility] Outpatient Referrer: Nagi Harden 05/26/2019 11:34:[address] [facility] Outpatient Referrer: Nagi Harden 05/19/2019 12:28:[address] [facility] Outpatient Referrer: Nagi Harden 05/18/2019 04:20:[address] [facility] Outpatient Attender: Nagi Harden [place] [facility] 05/13/2019 02:00:0 0 PM EST MEDENT ([facility] Outpatient Referrer: Nagi Harden 05/12/2019 10:59:[address] [facility] Outpatient Attender: ACACIA verdugo 05/09/2019 01:50:00 PM EST MED[facility] ([facility]) Outpatient Referrer: Nagi Harden 05/07/2019 12:19:00 PM [...] [facility] Outpatient Attender: Nagi Harden [place] [facility] 04/29/2019 10:15:0 0 AM EST MEDENT ([facility] Outpatient Attender: Harish Hannah Jr [place] Office 09:00:00 AM EST MED[facility] ([facility] Outpatient Attender: Harish Hannah Jr [place] Office 02:15:00 PM EST [facility] ([facility] Outpatient Attender: JANY WATSON NP [facility] 02/12 09:20:00 AM EST MED[facility] ([facility] Outpatient Attender: MARIA INES shultz 02/10/2019 02:35:00 PM EST MED[facility] ([facility] Immunizations Vaccine Date Status Description Data Source(s) New in 2012. IIV4 01/11/2020 01:50:00 PM EDT completed [facility] ([facility] Medications Medication Brand Name Start Date Product Form Dose Route Admi nistrative Instructions Pharmacy Instructions Status Indications Reaction Description Data Source(s) Tums Ultra 1000 1000 MG Tums Ultra 1000 12/16/2019 01:00:00 AM EDT completed NETSMART ([facility]) Hydroxyzine Hydrochloride 25 MG Oral Tablet Hydroxyzine HCL 12/16/2019 12:00:00 AM EDT ORAL completed MEDENT ([facility] Calcium + D3 600-800 MG-UNIT Calcium + D3 11/30/2019 01:00:00 AM EDT completed NETSMART ([facility]) Alendronate Sodium 35 MG Alendronate Sodium 11/30/2019 01:00:00 AM EDT completed NETSMART ([facility]) Levothyroxine Sodium 75 MCG Levothyroxine Sodium 11/30/2019 01:00:0 0 AM EDT 1.0 {tablet} completed NETSMART ([facility]) Omeprazole 40 MG Omeprazole 11/30/2019 01:00:00 AM EDT completed NETSMART ([facility] ) Vitamin D3 5000 UNIT Vitamin D3 11/30/2019 01:00:00 AM EDT completed NETSMART ([facility]) Acetaminophen-Codeine 300-30 MG Acetaminophen-Codeine 2019 01:00:00 AM EDT 1.0 {tablet} completed N ETSMART ([facility]) Tylenol Extra Strength 500 MG Tylenol Extra Strength 11/30/2019 01:00:00 AM EDT completed NETSMA RT ([facility]) Acetaminophen 300 MG / Codeine Phosphate 30 MG Oral Ta blet Acetaminophen-Codeine #3 11/19/2019 12:00:00 AM EDT active MEDENT ([facility] tramadol hydrochloride 50 MG Oral Tablet Tramadol HCL 11/16/2019 12:00:00 AM EDT ORAL completed MED[facility] ([facility] Cephalexin 500 MG Oral Capsule Cephalexin 07/21/2019 12:00:00 AM EDT completed MEDENT ([facility] Doxycycline Monohydrate 100 MG Oral Capsule Doxycycline [place] hydrate 05/09/2019 12:00:00 AM EST ORAL active M EDENT ([facility]) Hydrochlorothiazide 12.5 MG Oral Capsule Hydrochlorothiazide 03/19/2019 12:00:00 AM EST ORAL completed MEDENT ([facility] 200 ACTUAT Albuterol 0.09 MG/ACTUAT Metered Dose Inhaler [Pr oAir] Proair HFA 02/10/2019 12:00:00 AM EST RESPIRATORY active MEDENT ([facility]) Prednisone 20 MG Oral Tablet Prednisone 02/10/2019 12:00:00 AM EST completed MEDENT ([facility]) Doxycycline Monohydrate 100 MG Oral Tablet Doxycycline Monoh ydrate 02/10/2019 12:00:00 AM EST ORAL completed MEDENT ([facility]) Insurance Providers Payer name Policy type / Coverage type Policy ID Covered republican ID Covered republican's relationship to diaz Policy Diaz Plan Information EMEDNY [id number] SP [id number] MEDICARE [id number] SP [id number] MEDICAID M [id number] S [id number] MEDICARE C [id number] S [id number] J46 MEDICAID [id number] SP [id number] MEDICARE C [id number] S [id number] [id number] MEDICAID M [id number] S [id number] MEDICARE [id number] SP [id number] A MEDICARE [id number] SP [id number] [facility] [id number] SP [id number] MEDICARE [id number] SP [id number] [place] [id number] Self [id number] Medicare Primary [id number] Self [id number] [place] [id number] Self [id number] [place] Primary [id number] Self [id number] [place] [id number] Self [id number] [place] Medicare Primary [id number] Self [id number] [place] [id number] Self [id number] [place] Primary [id number] Self [id number] [place] [id number] Self [id number] [place] [id number] Self [id number] Medicaid Medigap Part B [id number] Self [id number] Medicare (Part B) Medicare Primary [id number] Self [id number] Medicaid Medigap Part B [id number] Self [id number] Medicare (Part B) Medicare Primary [id number] Self [id number] MEDICARE C [id number] S [id number] [place] [id number] Self [id number] [place] [id number] Self [id number] [place] Med[place] Part B [id number] Self [id number] [place] Primary [id number] Self [id number] Medicaid Medicaid [id number] Self [id number] Medicare Medicare Primary [id number] Self [id number] Medicaid Medicaid [id number] Self [id number] Medicare Medicare Primary [id number] Self 07 [id number] Medicaid Medicaid [id number] Self [id number] Medicare Medicare Primary [id number] Self 07 [id number] Medicaid Medigap Part B [id number] Self [id number] Medicare (Part B) Medicare Primary [id number] Self [id number] Medicaid Medigap Part B [id number] Self [id number] Medicare (Part B) Medicare Primary [id number] Self [id number] Medicaid Medicaid [id number] Self [id number] Medicare Medicare Primary [id number] Self 07 [id number] MEDICAID [id number] SP [id number] MEDICARE [id number] SP [id number] A Medicaid Medicaid [id number] Self [id number] Medicare Medicare Primary [id number] Self 07 [id number] Medicaid Medicaid [id number] Self [id number] Medicare Medicare Primary [id number] Self 07 [id number] MEDICARE C [id number] S [id number] A Medicaid Medicaid Self Medicare Medicare Primary Self MEDICAID [id number] SP [id number] [place] Primary Self Medicaid Medigap Part B Self Medicare Medicare Primary Self MEDICAID [id number] SP [id number] [place] Part B Self Medicare [facility] Medicare Primary Self MEDICARE [id number] SP [id number] A [id number] A [id number] Problems, Conditions, and Diagnoses Code Display Name Description Problem Type Effective Dates Data Source(s) 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 nervous system involvement Problem 11/16/2019 01:00:00 AM EDT NETSMART ([facility]) Z91.81 History of falling History of falling Problem 0 01:00:00 AM EDT NETSMART ([facility]) Z60.2 Problems related to living alone Problems related to l iving alone Problem 11/16/2019 01:00:00 AM EDT NETSMART ([facility] ) Z79.83 custodial (current) use of bisphosphonat es custodial (current) use of bisphosphonates Problem 11/16/2019 01:00:00 AM EDT NETSMART ([facility]) Z87.891 Personal history of nicotine dependence Personal history of nicotine dependence Problem 11/16/2019 01:00:00 AM EDT NETSMART ([facility]) M48.54XD Collapsed vertebra, not else where classified, thoracic region, subsequent encounter for fracture with routine healing Collapsed vertebra, not elsewhere classified, thoracic region, subsequent encounter for fracture with routine healing Problem 11/16/2019 01:00:00 AM EDT NETSMART ([facility]) [id number] Thyroid nodule Thyroid nodule Problem 06/24/2019 12:00: 00 AM EDT MEDENT ([facility]) Surgeries/Procedures Procedure Description Date Indications Data Source(s) RADEX SPINE THORACIC 2 VIEWS 01/27/2020 12:00:00 AM ES T MEDENT ([facility] RADEX SPINE LUMBOSACRAL 2/3 VIEWS 01/27/2020 12:00:00 AM EST MEDENT ([facility]) RADEX SPINE THORACIC 2 VIEWS 12/16/2019 12:00:00 AM ED T MEDENT ([facility]) RADEX SPINE LUMBOSACRAL 2/3 VIEWS 12/16/2019 12:00:00 AM EDT MEDENT ([facility]) RADEX SPINE THORACIC 2 VIEWS 11/19/2019 12:00:00 AM ED T MEDENT ([facility]) RADEX SPINE LUMBOSACRAL 2/3 VIEWS 11/19/2019 12:00:00 AM EDT MEDENT ([facility]) CLTX VRT BDY FX W/O MANJ REQ&W/CSTING/BRACING 11/12/19 12:00:00 AM EDT MEDENT ([facility]) LARYNGOSCOPY FLEXIBLE FIBEROPTIC DIAGNOSTIC 05/05/2019 12:00:00 AM EST [facility] ([facility] ) Results ID Date Data Source [id number] 01/11/2020 02:51:00 PM EDT MEDENT ([facility] Name Value Range Interpretation Code Description Data Dana rce(s) Supporting Document(s) Erythrocyte sedimentation rate by Westergren method 15 0-20 MEDENT ([facility] ID Date Data Source [id number] 01/11/2020 02:50:00 PM EDT MEDENT ([facility] Name Value Range Interpretation Code Description Data Dana rce(s) Supporting Document(s) Calcidiol [Mass/volume] in Serum or Plasma 46.6 ng/mL 30.0-100.0 MEDENT ([facility] Vitamin D deficiency has been defined by the [place] of [employer] and an Endocrine Society practice guideline as a level of serum 25-OH vitamin D less than 20 ng/mL (1,2). The Endocrine Society went on to further define vitamin D insufficiency as a level between 21 and 29 ng/mL (2). 1. IOM ([place] of [employer]). 2010. Di etary reference intakes for calcium and D. [place]: The National Academies Press. 2. Ashish PADRON, Tricia REYNAGA, Wilfred mueller MALLOY, et al. Evaluation, treatment, and prevention of vitamin D deficiency: an Endocrine Society clinical practice guideline. JCEM. 2010; 96():1911-30. ID Date Data Source [id number] 01/11/2020 02:48:00 PM EDT MEDENT ([facility] Name Value Range Interpretation Code Description Data Dana rce(s) Supporting Document(s) Trig 149 mg/dL 40-200 MED[facility] ([facility] NORMAL [...] HCT IS 5% LESS SOURCE FOR DATA: [employer] SA DYN 1800 OPERATION MANUAL( AUTOMATED BLOOD COUNTS [...] HCT IS 5% LESS SOURCE FOR DATA: [employer] 1800 OPERATION MANUAL( AUTOMATED BLOOD COUNTS AND [...] YEARS EXCLUSIVE. LDL_C 122 Calc 75-129 MARY ([facility] NORMAL RANGES Age WBC [...] HCT IS 5% LESS SOURCE FOR DATA: [employer] 1800 OPERATION MANUAL( AUTOMATED BLOOD COUNTS AND [...] 2-19 YEARS EXCLUSIVE. Cho/HDL Ratio 3.2 CALC Drivable ([facility] NORMAL RANGES Age WBC RBC HGB [...] HCT IS 5% LESS SOURCE FOR DATA: [employer] 1800 OPERATION MANUAL( AUTOMATED BLOOD COUNTS AND [...] HCT IS 5% LESS SOURCE FOR DATA: [employer] 1800 OPERATION MANUAL( AUTOMATED BLOOD COUNTS AND [...] 2-19 YEARS EXCLUSIVE. ID Date Data Source [id number] 01/11/2020 02:48:00 PM EDT MEDENT ([facility] Name Value Range Interpretation Code Description Data Dana rce(s) Supporting Document(s) Glu 91 mg/dL 70-110 [facility] NORMAL RANGES Age [...] HCT IS 5% LESS SOURCE FOR DATA: [employer] 1800 OPERATION MANUAL( AUTOMATED BLOOD COUNTS AND [...] YEARS EXCLUSIVE. BUN/Creatinine Ratio 25.0 CALC MEDENT ([facility] NORMAL RANGES Age [...] HCT IS 5% LESS SOURCE FOR DATA: [employer] 1800 OPERATION MANUAL( AUTOMATED BLOOD COUNTS AND [...] 2-19 YEARS EXCLUSIVE. BUN 19 mg/dL 8-23 [facility] ([facility] NORMAL [...] HCT IS 5% LESS SOURCE FOR DATA: [employer] SA DYN 1800 OPERATION MANUAL( AUTOMATED BLOOD COUNTS [...] 2-19 YEARS EXCLUSIVE. K 4.6 mmol/L 3.5-5.1 [facility] ([facility] NORMAL [...] HCT IS 5% LESS SOURCE FOR DATA: [employer] 1800 OPERATION MANUAL( AUTOMATED BLOOD COUNTS AND [...] HCT IS 5% LESS SOURCE FOR DATA: [employer] 1800 OPERATION MANUAL( AUTOMATED BLOOD COUNTS AND [...] 2-19 YEARS EXCLUSIVE. CA 9.2 mg/dL 8.6-10.2 [facility] ([facility] NORMAL [...] HCT IS 5% LESS SOURCE FOR DATA: [employer] 1800 OPERATION MANUAL( AUTOMATED BLOOD COUNTS AND [...] 2-19 YEARS EXCLUSIVE. Co2 27.0 mmol/L 22.0-29.0 [facility] ([facility] NORMAL RANGES Age WBC RBC [...] HCT IS 5% LESS SOURCE FOR DATA: [employer] 1800 OPERATION MANUAL( AUTOMATED BLOOD COUNTS AND [...] HCT IS 5% LESS SOURCE FOR DATA: [employer] 1800 OPERATION MANUAL( AUTOMATED BLOOD COUNTS AND [...] HCT IS 5% LESS SOURCE FOR DATA: [employer] 1800 OPERATION MANUAL( AUTOMATED BLOOD COUNTS AND [...] HCT IS 5% LESS SOURCE FOR DATA: [employer] 1800 OPERATION MANUAL( AUTOMATED BLOOD COUNTS AND [...] 2-19 YEARS EXCLUSIVE. Alb 3.9 g/dL 3.4-4.8 [facility] ([facility] NORMAL [...] HCT IS 5% LESS SOURCE FOR DATA: [employer] 1800 OPERATION MANUAL( AUTOMATED BLOOD COUNTS AND [...] HCT IS 5% LESS SOURCE FOR DATA: [employer] 1800 OPERATION MANUAL( AUTOMATED BLOOD COUNTS AND [...] HCT IS 5% LESS SOURCE FOR DATA: [employer] DYN 1800 OPERATION MANUAL( AUTOMATED BLOOD COUNTS [...] 2-19 YEARS EXCLUSIVE. Alp 101.7 U/L 35-129 [facility] ([facility] NORMAL [...] HCT IS 5% LESS SOURCE FOR DATA: [employer] 1800 OPERATION MANUAL( AUTOMATED BLOOD COUNTS AND [...] 2-19 YEARS EXCLUSIVE. Tbili 0.08 mg/dL 0.0-1.2 [facility] ([facility] NORMAL [...] HCT IS 5% LESS SOURCE FOR DATA: [employer] 1800 OPERATION MANUAL( AUTOMATED BLOOD COUNTS AND [...] HCT IS 5% LESS SOURCE FOR DATA: [employer] 1800 OPERATION MANUAL( AUTOMATED BLOOD COUNTS AND [...] YEARS EXCLUSIVE. Osmolality-Calculated 284.1 [facility] ([facility] NORMAL RANGES [...] HCT IS 5% LESS SOURCE FOR DATA: [employer] 1800 OPERATION MANUAL( AUTOMATED BLOOD COUNTS AND [...] HCT IS 5% LESS SOURCE FOR DATA: [employer] 1800 OPERATION MANUAL( AUTOMATED BLOOD COUNTS AND [...] HCT IS 5% LESS SOURCE FOR DATA: [employer] 1800 OPERATION MANUAL( AUTOMATED BLOOD COUNTS AND [...] INDIVIDUALA AGED 2-19 YEARS EXCLUSIVE. eGFR Non-Afr. Surinamese 68 # [facility] ([facility] NORMAL RANGES [...] HCT IS 5% LESS SOURCE FOR DATA: [employer] 1800 OPERATION MANUAL( AUTOMATED BLOOD COUNTS AND [...] 2-19 YEARS EXCLUSIVE. ID Date Data Source [id number] 01/11/2020 02:48:00 PM EDT [facility] ([facility] Name Value Range Interpretation Code Description Data Dana rce(s) Supporting Document(s) Creatine kinase [Enzymatic activity/volume] in Serum or Plasma 34 U /L 26-192 [facility] ([facility] NORMAL RANGES Age WBC [...] HCT IS 5% LESS SOURCE FOR DATA: [employer] 1800 OPERATION MANUAL( AUTOMATED BLOOD COUNTS AND [...] 2-19 YEARS EXCLUSIVE. ID Date Data Source [id number] 01/11/2020 02:48:00 PM EDT [facility] ([facility] Name Value Range Interpretation Code Description Data Dana rce(s) Supporting Document(s) RBC 4.07 10E6/uL 4.20-6.30 Below low normal [facility] ([facility] NORMAL RANGES Age WBC RBC [...] HCT IS 5% LESS SOURCE FOR DATA: [employer] 1800 OPERATION MANUAL( AUTOMATED BLOOD COUNTS AND [...] 2-19 YEARS EXCLUSIVE. WBC 6.7 10E3/uL 4.1-10.9 [facility] ([facility] NORMAL RANGES Age WBC RBC [...] HCT IS 5% LESS SOURCE FOR DATA: [employer] 1800 OPERATION MANUAL( AUTOMATED BLOOD COUNTS AND [...] HCT IS 5% LESS SOURCE FOR DATA: [employer] 1800 OPERATION MANUAL( AUTOMATED BLOOD COUNTS AND [...] 2-19 YEARS EXCLUSIVE. HGB 13.7 g/dL 12.0-18.0 [facility] ([facility] NORMAL RANGES Age WBC [...] HCT IS 5% LESS SOURCE FOR DATA: [employer] 1800 OPERATION MANUAL( AUTOMATED BLOOD COUNTS AND [...] MCV 98.8 fL 80.0-97.0 Above high normal [facility] ([facility] NORMAL RANGES [...] HCT IS 5% LESS SOURCE FOR DATA: [employer] 1800 OPERATION MANUAL( AUTOMATED BLOOD COUNTS AND [...] HCT IS 5% LESS SOURCE FOR DATA: [employer] 1800 OPERATION MANUAL( AUTOMATED BLOOD COUNTS AND [...] MCH 33.7 pg 26.0-32.0 Above high normal [facility] ([facility] NORMAL RANGES [...] HCT IS 5% LESS SOURCE FOR DATA: [employer] 1800 OPERATION MANUAL( AUTOMATED BLOOD COUNTS AND [...] 2-19 YEARS EXCLUSIVE. Lym% 27.7 % 10.0-58.5 [facility] ([facility] NORMAL [...] HCT IS 5% LESS SOURCE FOR DATA: [employer] 1800 OPERATION MANUAL( AUTOMATED BLOOD COUNTS AND [...] HCT IS 5% LESS SOURCE FOR DATA: [employer] 1800 OPERATION MANUAL( AUTOMATED BLOOD COUNTS AND [...] 2-19 YEARS EXCLUSIVE. PLT 311 10E3/uL 140-440 [facility] ([facility] NORMAL RANGES Age WBC RBC [...] HCT IS 5% LESS SOURCE FOR DATA: [employer] 1800 OPERATION MANUAL( AUTOMATED BLOOD COUNTS [...] 2-19 YEARS EXCLUSIVE. Neut% 65.3 % 37.0-92.0 [facility] ([facility] NORMAL [...] HCT IS 5% LESS SOURCE FOR DATA: [employer] 1800 OPERATION MANUAL( AUTOMATED BLOOD COUNTS AND [...] HCT IS 5% LESS SOURCE FOR DATA: [employer] 1800 OPERATION MANUAL( AUTOMATED BLOOD COUNTS AND [...] 2-19 YEARS EXCLUSIVE. Lym# 1.9 10E3/uL 0.6-4.1 [facility] ([facility] NORMAL RANGES Age WBC RBC [...] HCT IS 5% LESS SOURCE FOR DATA: [employer] 1800 OPERATION MANUAL( AUTOMATED BLOOD COUNTS AND [...] 2-19 YEARS EXCLUSIVE. Neut# 4.3 % 2.0-7.8 [facility] ([facility] NORMAL [...] HCT IS 5% LESS SOURCE FOR DATA: [employer] 1800 OPERATION MANUAL( AUTOMATED BLOOD COUNTS AND [...] 2-19 YEARS EXCLUSIVE. MPV 11.1 fL 9.0-13.0 [facility] ([facility] NORMAL RANGES Age WBC [...] HCT IS 5% LESS SOURCE FOR DATA: [employer] 1800 OPERATION MANUAL( AUTOMATED BLOOD COUNTS AND [...] 2-19 YEARS EXCLUSIVE. MXD# 0.5 10E3/uL 0.0-1.8 [facility] NORMAL RANGES Age WBC RBC HGB [...] HCT IS 5% LESS SOURCE FOR DATA: [employer] 1800 OPERATION MANUAL( AUTOMATED BLOOD COUNTS AND [...] 2-19 YEARS EXCLUSIVE. ID Date Data Source [id number] 01/11/2020 02:47:00 PM EDT [facility] ([facility] Name Value Range Interpretation Code Description Data Dana rce(s) Supporting Document(s) Thyrotropin [Units/volume] in Serum or Plasma 4.097 ulU/mL 0.60-4.8 [facility] ([facility] ID Date Data Source [id number] 11/11/2019 03:38:00 PM EDT [facility] ([facility] Name Value Range Interpretation Code Description Data Dana rce(s) Supporting Document(s) Lipoprotein lipase [Enzymatic activity/volume] in Serum or P lasma 100 U/L 73-393 Normal (applies to non-numeric results) [facility] ([facility] <content>note:<nlbl:[email or web address]> </content>
<content></content> ID Date Data Source [id number] 11/11/2019 03:38:00 PM EDT [facility] ([facility] Name Value Range Interpretation Code Description Data Dana rce(s) Supporting Document(s) Glucose, Fasting 79 mg/dL 70-100 Normal (applies to non-numeric results) [facility] ([facility] Blood Urea Nitrogen 15 mg/dL 7-18 Normal (applies to non-nume fiorella results) [facility] ([facility] Glomerular Filtration Rate Laboratory test result Normal (applies to non- numeric results) [facility] ([facility] ) <content>Units are mL/min/1.73 m2</content>
<content></content>
<content>Chronic Kidney Disease Staging per NKF:</content>
<content></content>
<content>Stage I & II GFR >=60 Normal to Mildly Decreased</content>
<content>Stage III GFR 30-59 Moderately Decreased</content>
<content>Stage IV GFR 15-29 Severely Decreased</content>
<content>Stage V GFR <15 Very Little GFR Left</content>
<content>ESRD GFR <15 on LAB SUPPORT TECHNICIAN</content>
<content></content> Creatinine For GFR 0.71 mg/dL 0.55-1.30 Normal (applies to non -numeric results) [facility] ([facility] Sodium Level 139 meq/L 136-145 Normal (applies to non-numeric res ults) [facility] ([facility] Carbon Dioxide Level 30 meq/L 21-32 Normal (applies to non-num thu results) [facility] ([facility] Chloride Level 108 meq/L 98-107 Above high normal [facility] ([facility] Potassium Serum 3.8 meq/L 3.5-5.1 Normal (applies to non-numeric results) [facility] ([facility] Anion Gap 1 meq/L 8-16 Below low normal [facility] ( [facility] Calcium Level 8.8 mg/dL 8.8-10.2 Normal (applies to non-numeric re sults) [facility] ([facility] ID Date Data Source [id number] 11/11/2019 03:38:00 PM EDT [facility] ([facility] Name Value Range Interpretation Code Description Data Dana rce(s) Supporting Document(s) Alt/SGPT 17 U/L 12-78 Normal (applies to non-numeric resul ts) [facility] ([facility] Ast/Sgot 15 U/L 7-37 Normal (applies to non-numeric resul ts) [facility] ([facility] Alkaline Phosphatase 112 U/L 45-117 Normal (applies to non-num thu results) [facility] ([facility] Total Protein 6.7 GM/DL 6.4-8.2 Normal (applies to non-numeric re sults) [facility] ([facility] Bilirubin,Total 0.3 mg/dL 0.2-1.0 Normal (applies to non-numeric results) [facility] ([facility] Bilirubin,Direct Laboratory test result 0.0-0.2 Normal ( applies to non-numeric results) [facility] ([facility] ) Albumin/Globulin Ratio 1.1 1.2-2.2 Below low normal [facility] ([facility] Albumin 3.5 GM/DL 3.2-5.2 Normal (applies to non-numeric resul ts) [facility] ([facility] ID Date Data Source [id number] 11/11/2019 03:38:00 PM EDT [facility] ([facility] Name Value Range Interpretation Code Description Data Dana rce(s) Supporting Document(s) CK-MB Value Mass Laboratory test result Normal ( applies to non-numeric results) [facility] ([facility] CPK Creatine Phosphokinase 54 U/L 26-192 Blanca l (applies to non-numeric results) [facility] ([facility] ) MB/CK Relative Index 1.85 Normal (applies to non-num thu results) [facility] ([facility] <content>DIAGNOSIS CRITERIA</content>
<content>MMB ng/ml Relative Index (RI)</content>
<content>NON-AMI < or = 5 N/A</content>
<content>SOMMER ZONE > 5 < or = 4</content>
<content>AMI > 5 > 4</content>
<content></content> Troponin I Laboratory test result Normal (applies to non-n umeric results) [facility] ([facility] <content>Troponin I Reference Interval f or Siemens [place] LOCI:</content>
<content></content>
<content>99th Percentile= 0.00-0.045 ng/ml</content>
<content></content>
<content>Risk Stratification:</content>
<content><= 0.10 ng/ml Decreased Risk for Adverse Clinical</content>
<content>Events.</content>
<content>0.10-1.50 ng/ml Increased Risk for Adverse Clinical</content>
<content>Events. Evaluation of additional</content>
<content>criterion and/or repeat testing in 2-6</content>
<content>hours is suggested to rule out myocardial</content>
<content>damage.</content>
<content>>= 1.50 ng/ml Indicative of Myocardial Injury.</content>
<content></content> ID Date Data Source [id number] 11/11/2019 03:38:00 PM EDT [facility] ([facility] Name Value Range [...] normal [facility] ([facility] [place] % 6.7 % 0.0-5.0 Above high normal [...] Normal (applies to non-numeric re sults) [facility] ([facility] Immature Granulocyte % 0.3 % 0-3.0 Normal (applies to non-n umeric results) [facility] ([facility] [place] # 0.6 10 0.0-0.8 Normal (applies to non-numeric resul ts) [facility] ([facility] Lymph # 1.8 10 1.5-5.0 Normal (applies to non-numeric resul ts) [facility] ([facility] Baso # 0.1 10 0.0-0.2 Normal (applies to non-numeric resul ts) [facility] ([facility] Eos # 0.1 10 0.0-0.5 Normal (applies to non-numeric resul ts) [facility] ([facility] ID Date Data Source [id number] 09/02/2019 01:30:00 PM EDT [facility] ([facility] Name Value Range Interpretation Code Description Data Dana rce(s) Supporting Document(s) WBC 11.1 10E3/uL 4.1-10.9 Above high normal [facility] ([facility] NORMAL RANGES [...] HCT IS 5% LESS SOURCE FOR DATA: [employer] 1800 OPERATION MANUAL( AUTOMATED BLOOD COUNTS AND [...] HGB 11.6 g/dL 12.0-18.0 Below low normal [facility] ( [facility] NORMAL [...] HCT IS 5% LESS SOURCE FOR DATA: [employer] 1800 OPERATION MANUAL( AUTOMATED BLOOD COUNTS AND [...] HCT IS 5% LESS SOURCE FOR DATA: [employer] 1800 OPERATION MANUAL( AUTOMATED BLOOD COUNTS AND [...] HCT 35.7 % 37.0-51.0 Below low normal [facility] ( [facility] NORMAL [...] HCT IS 5% LESS SOURCE FOR DATA: [employer] 1800 OPERATION MANUAL( AUTOMATED BLOOD COUNTS AND [...] mL/min Normal MCH 31.4 pg 26.0-32.0 [facility] ([facility] NORMAL RANGES Age WBC [...] HCT IS 5% LESS SOURCE FOR DATA: [employer] 1800 OPERATION MANUAL( AUTOMATED BLOOD COUNTS AND [...] mL/min Normal MCV 96.7 fL 80.0-97.0 [facility] ([facility] NORMAL RANGES Age WBC [...] HCT IS 5% LESS SOURCE FOR DATA: [employer] 1800 OPERATION MANUAL( AUTOMATED BLOOD COUNTS AND [...] >32 mL/min Normal MCHC 32.5 g/dL 31.0-36.0 [facility] ([facility] NORMAL RANGES Age WBC [...] HCT IS 5% LESS SOURCE FOR DATA: [employer] 1800 OPERATION MANUAL( AUTOMATED BLOOD COUNTS [...] >32 mL/min Normal PLT 391 10E3/uL 140-440 [employer] ([facility] NORMAL RANGES Age WBC RBC [...] HCT IS 5% LESS SOURCE FOR DATA: [employer] 1800 OPERATION MANUAL( AUTOMATED BLOOD COUNTS AND [...] RDW-CV 14.9 % 11.5-14.5 Above high normal [facility] ([facility] NORMAL RANGES [...] HCT IS 5% LESS SOURCE FOR DATA: [employer] 1800 OPERATION MANUAL( AUTOMATED BLOOD COUNTS AND [...] >32 mL/min Normal MXD% 11.8 % 0.1-24.0 [facility] ([facility] NORMAL [...] HCT IS 5% LESS SOURCE FOR DATA: [employer] 1800 OPERATION MANUAL( AUTOMATED BLOOD COUNTS AND [...] >32 mL/min Normal Neut% 66.3 % 37.0-92.0 [facility] ([facility] NORMAL [...] HCT IS 5% LESS SOURCE FOR DATA: [employer] 1800 OPERATION MANUAL( AUTOMATED BLOOD COUNTS AND [...] HCT IS 5% LESS SOURCE FOR DATA: [employer] 1800 OPERATION MANUAL( AUTOMATED BLOOD COUNTS AND [...] HCT IS 5% LESS SOURCE FOR DATA: [employer] 1800 OPERATION MANUAL( AUTOMATED BLOOD COUNTS AND [...] mL/min Normal MXD# 1.3 10E3/uL 0.0-1.8 [facility] ([facility] NORMAL RANGES Age WBC RBC [...] HCT IS 5% LESS SOURCE FOR DATA: [employer] 1800 OPERATION MANUAL( AUTOMATED BLOOD COUNTS [...] mL/min Normal Lym# 2.4 10E3/uL 0.6-4.1 M[facility] ([facility] NORMAL RANGES Age WBC RBC [...] HCT IS 5% LESS SOURCE FOR DATA: [employer] 1800 OPERATION MANUAL( AUTOMATED BLOOD COUNTS AND [...] >32 mL/min Normal MPV 11.4 fL 9.0-13.0 [facility] ([facility] NORMAL RANGES Age WBC [...] HCT IS 5% LESS SOURCE FOR DATA: [employer] 1800 OPERATION MANUAL( AUTOMATED BLOOD COUNTS AND [...] >32 mL/min Normal ID Date Data Source [id number] 09/02/2019 01:30:00 PM EDT [facility] ([facility] Name Value Range Interpretation Code Description Data Dana rce(s) Supporting Document(s) Glu 77 mg/dL 70-110 [facility] ([facility] NORMAL RANGES Age WBC [...] HCT IS 5% LESS SOURCE FOR DATA: [employer] 1800 OPERATION MANUAL( AUTOMATED BLOOD COUNTS AND [...] >32 mL/min Normal BUN 15 mg/dL 8- [facility] NORMAL RANGES Age [...] HCT IS 5% LESS SOURCE FOR DATA: [employer] 1800 OPERATION MANUAL( AUTOMATED BLOOD COUNTS AND [...] above >32 mL/min Normal BUN/Creatinine Ratio 21.4 [facility] ([facility] NORMAL RANGES Age [...] HCT IS 5% LESS SOURCE FOR DATA: [employer] 1800 OPERATION MANUAL( AUTOMATED BLOOD COUNTS AND [...] >32 mL/min Normal Creat 0.7 mg/dL 0.5-1.0 [facility] ([facility] NORMAL [...] HCT IS 5% LESS SOURCE FOR DATA: [employer] 1800 OPERATION MANUAL( AUTOMATED BLOOD COUNTS AND [...] >32 mL/min Normal Co2 24.8 mmol/L 22.0-29.0 [facility] ([facility] NORMAL RANGES Age WBC RBC [...] HCT IS 5% LESS SOURCE FOR DATA: [employer] 1800 OPERATION MANUAL( AUTOMATED BLOOD COUNTS AND [...] HCT IS 5% LESS SOURCE FOR DATA: [employer] 1800 OPERATION MANUAL( AUTOMATED BLOOD COUNTS AND [...] >32 mL/min Normal Na 139 mmol/L 136-145 [facility] ([facility] NORMAL [...] HCT IS 5% LESS SOURCE FOR DATA: [employer] 1800 OPERATION MANUAL( AUTOMATED BLOOD COUNTS AND [...] mL/min Normal Anion Gap 16 mmol/L [facility] ([facility] NORMAL RANGES Age WBC [...] HCT IS 5% LESS SOURCE FOR DATA: [employer] 1800 OPERATION MANUAL( AUTOMATED BLOOD COUNTS AND [...] >32 mL/min Normal CL 102.7 mmol/L 98.0-107.0 [facility] ([facility] NORMAL RANGES Age WBC RBC HGB [...] HCT IS 5% LESS SOURCE FOR DATA: [employer] 1800 OPERATION MANUAL( AUTOMATED BLOOD COUNTS AND [...] >32 mL/min Normal K 4.6 mmol/L 3.5-5.1 [employer] ([facility] NORMAL RANGES Age WBC RBC [...] HCT IS 5% LESS SOURCE FOR DATA: [employer] 1800 OPERATION MANUAL( AUTOMATED BLOOD COUNTS [...] and above >32 mL/min Normal eGFR Non-Afr. Surinamese 80 # [facility] ([facility] [...] HCT IS 5% LESS SOURCE FOR DATA: [employer] 1800 OPERATION MANUAL( AUTOMATED BLOOD COUNTS AND [...] HCT IS 5% LESS SOURCE FOR DATA: [employer] 1800 OPERATION MANUAL( AUTOMATED BLOOD COUNTS AND [...] >32 mL/min Normal ID Date Data Source [id number] 09/02/2019 01:30:00 PM EDT [facility] ([facility] Name Value Range Interpretation Code Description Data Dana rce(s) Supporting Document(s) Creatine kinase [Enzymatic activity/volume] in Serum or Plasma 58 U /L 26-192 [facility] ([facility] NORMAL RANGES [...] HCT IS 5% LESS SOURCE FOR DATA: [employer] 1800 OPERATION MANUAL( AUTOMATED BLOOD COUNTS AND [...] >32 mL/min Normal ID Date Data Source [id number] 09/02/2019 01:30:00 PM EDT [facility] ([facility] Name Value Range Interpretation Code Description Data Dana rce(s) Supporting Document(s) Thyrotropin [Units/volume] in Serum or Plasma 2.482 ulU/mL 0.60-4.8 [facility] ([facility] ID Date Data Source [id number] 07/24/2019 05:55:00 AM EDT [facility] ([facility]amil [facility] [...] normal [facility] ( [facility] [place] % 8.2 % 0.0-5.0 Above high normal [...] Normal (applies to non-numeric resul ts) [facility] ([facility] Neutrophils # 8.9 10 1.5-8.5 Above high normal [facility] ([facility] Nucleated Red Blood Cell % 0.0 % 0-0 Normal (applies to n on-numeric results) [facility] ([facility] Lymph # 1.4 10 1.5-5.0 Below low normal [facility] ( [facility] Baso # 0.1 10 0.0-0.2 Normal (applies to non-numeric resul ts) [facility] ([facility] [place] # 0.9 10 0.0-0.8 Above high normal [facility] ([facility] Eos # 0.1 10 0.0-0.5 Normal (applies to non-numeric resul ts) [facility] ([facility] ID Date Data Source [id number] 07/24/2019 05:55:00 AM EDT [facility] ([facility]) Name Value Range Interpretation Code Description Data Dana rce(s) Supporting Document(s) White Blood Count 11.4 10 4.0-10.0 Above high normal [facility] ([facility]) Red Blood Count 3.59 10 4.00-5.40 Below low normal [facility] ([facility]) Hemoglobin 11.8 g/dL 12.0-15.5 Below low normal [facility] ( [facility]) Hematocrit 35.9 % 36.0-47.0 Below low normal [facility] ( [facility]) Mean Corpuscular Volume 100.0 fl 80.0-96.0 Above high [facility] Mean Corpuscular Hemoglobin 32.9 pg 27.0-33.0 Norm al (applies to non-numeric results) [facility] ([facility]) Mean Corpuscular HGB Conc 32.9 g/dL 32.0-36.5 Normal (applies to non-numeric results) [facility] ([facility]) Platelet Count, Automated 279 10 150-450 Normal (applies to non-numeric results) [facility] ([facility]) Red Cell Distribution Width 13.5 % 11.5-14.5 Norm al (applies to non-numeric results) [facility] ([facility]) Lymph % 12.2 % 24.0-44.0 Below low normal [facility] ( [facility]) Neutrophils % 77.7 % 36.0-66.0 Above high normal [facility] ([facility]) [place] % 8.2 % 0.0-5.0 Above high normal [facility] ([facility]) Eos % 1.1 % 0.0-3.0 Normal (applies to non-numeric resul ts) [facility] ([facility]) Baso % 0.4 % 0.0-1.0 Normal (applies to non-numeric resul ts) [facility] ([facility]) Immature Granulocyte % 0.4 % 0-3.0 Normal (applies to non-n umeric results) [facility] ([facility]) Nucleated Red Blood Cell % 0.0 % 0-0 Normal (applies to n on-numeric results) [facility] ([facility]) Neutrophils # 8.9 10 1.5-8.5 Above high normal [facility] ([facility]) Lymph # 1.4 10 1.5-5.0 Below low normal [facility] ( [facility]) [place] # 0.9 10 0.0-0.8 Above high normal [facility] ([facility]) Eos # 0.1 10 0.0-0.5 Normal (applies to non-numeric resul ts) [facility] ([facility]) Baso # 0.1 10 0.0-0.2 Normal (applies to non-numeric resul ts) [facility] ([facility]) ID Date Data Source [id number] 07/23/2019 06:41:00 AM EDT [facility] ([facility] Name Value Range Interpretation Code Description Data Dana rce(s) Supporting Document(s) Glucose, Fasting 97 mg/dL 70-100 Normal (applies to non-numeric results) [facility] ([facility] Creatinine For GFR 0.51 mg/dL 0.55-1.30 Below low normal [facility] ([facility] Blood Urea Nitrogen 10 mg/dL 7-18 Normal (applies to non-nume fiorella results) [facility] ([facility] Sodium Level 141 meq/L 136-145 Normal (applies to non-numeric res ults) [facility] ([facility] Glomerular Filtration Rate Laboratory test result Normal (applies to non- numeric results) [facility] ([facility] ) <content>Units are mL/min/1.73 m2</content>
<content></content>
<content>Chronic Kidney Disease Staging per NKF:</content>
<content></content>
<content>Stage I & II GFR >=60 Normal to Mildly Decreased</content>
<content>Stage III GFR 30- 59 Moderately Decreased</content>
<content>Stage IV GFR 15-29 Severely Decreased</content>
<content>Stage V GFR <15 Very Little GFR Left</content>
<content>ESRD GFR <15 on LAB SUPPORT TECHNICIAN</content>
<content></content> Potassium Serum 3.5 meq/L 3.5-5.1 Normal (applies to non-numeric results) [facility] ([facility] Chloride Level 109 meq/L 98-107 Above high normal [facility] ([facility] Carbon Dioxide Level 28 meq/L 21-32 Normal (applies to non-num thu results) [facility] ([facility] Anion Gap 4 meq/L 8-16 Below low normal [facility] ( [facility] Calcium Level 7.7 mg/dL 8.8-10.2 Below low normal [facility] ([facility] Alt/SGPT 18 U/L 12-78 Normal (applies to non-numeric resul ts) [facility] ([facility] Alkaline Phosphatase 85 U/L 45-117 Normal (applies to non-num thu results) [facility] ([facility] Ast/Sgot 14 U/L 7-37 Normal (applies to non-numeric resul ts) [facility] ([facility] [facility] Total Protein 5.2 GM/DL 6.4-8.2 Below low normal MEDEN T ([facility] Bilirubin,Total 0.4 mg/dL 0.2-1.0 Normal (applies to non-numeric results) [facility] ([facility] Albumin/Globulin Ratio 0.86 1.00-1.93 Below low normal [facility] ([facility] Albumin 2.4 GM/DL 3.2-5.2 Below low normal [facility] ( [facility] ID Date Data Source [id number] 07/23/2019 06:41:00 AM EDT [facility] ([facility] Name Value Range Interpretation Code Description Data Dana rce(s) Supporting Document(s) Red Blood Count 3.51 10 4.00-5.40 Below low normal MED ENT ([facility] White Blood Count 13.2 10 4.0-10.0 Above high normal [facility] ([facility] Hematocrit 35.2 % 36.0-47.0 Below low normal [facility] ( [facility] Hemoglobin 11.5 g/dL 12.0-15.5 Below low normal [facility] ( [facility] Mean Corpuscular Volume 100.3 fl 80.0-96.0 Above high normal [facility] ([facility] Mean Corpuscular HGB Conc 32.7 g/dL 32.0-36.5 Normal (applies to non-numeric results) [facility] ([facility] ) Mean Corpuscular Hemoglobin 32.8 pg 27.0-33.0 Norm al (applies to non-numeric results) [facility] ([facility] ) Red Cell Distribution Width 13.5 % 11.5-14.5 Norm al (applies to non-numeric results) [facility] ([facility] ) Platelet Count, Automated 248 10 150-450 Normal (applies to non-numeric results) [facility] ([facility] ) Neutrophils % 81.3 % 36.0-66.0 Above high normal MEDE [facility] ([facility] [place] % 7.9 % 0.0-5.0 Above high normal [facility] ([facility] Lymph % 10.0 % 24.0-44.0 Below low normal [facility] ( [facility] Baso % 0.2 % 0.0-1.0 Normal (applies to non-numeric resul ts) [facility] ([facility] Eos % 0.2 % 0.0-3.0 Normal (applies to non-numeric resul ts) [facility] ([facility] Neutrophils # 10.8 10 1.5-8.5 Above high normal MEDE NT ([facility] Nucleated Red Blood Cell % 0.0 % 0-0 Normal (applies to n on-numeric results) [facility] ([facility] Immature Granulocyte % 0.4 % 0-3.0 Normal (applies to non-n umeric results) [facility] ([facility] [place] # 1.0 10 0.0-0.8 Above high normal [facility] ([facility] Lymph # 1.3 10 1.5-5.0 Below low normal [facility] ( [facility] Eos # 0.0 10 0.0-0.5 Normal (applies to non-numeric resul ts) [facility] ([facility] Baso # 0.0 10 0.0-0.2 Normal (applies to non-numeric resul ts) [facility] ([facility] ID Date Data Source [id number] 07/23/2019 06:41:00 AM EDT [facility] ([facility], ) Name Value Range Interpretation Code Description Data Daan rce(s) Supporting Document(s) Glucose, Fasting 97 mg/dL 70-100 Normal (applies to non-numeric results) [facility] ([facility], ) Creatinine For GFR 0.51 mg/dL 0.55-1.30 Below low normal [facility] ([facility]) Glomerular Filtration Rate Laboratory test result Normal (applies to non- numeric results) [facility] ([facility]) <content>Units are mL/min/1.73 m2</content>
<content></content>
<content>Chronic Kidney Disease Staging per NKF:</content>
<content></content>
<content>Stage I & II GFR >=60 Normal to Mildly Decreased</content>
<content>Stage III GFR 30- 59 Moderately Decreased</content>
<content>Stage IV GFR 15-29 Severely Decreased</content>
<content>Stage V GFR <15 Very Little GFR Left</content>
<content>ESRD GFR <15 on LAB SUPPORT TECHNICIAN</content>
<content></content> Blood Urea Nitrogen 10 mg/dL 7-18 Normal (applies to non-nume fiorella results) [facility] ([facility], ) Sodium Level 141 meq/L 136-145 Normal (applies to non-numeric res ults) [facility] ([facility]) Potassium Serum 3.5 meq/L 3.5-5.1 Normal (applies to non-numeric results) [facility] ([facility]) Chloride Level 109 meq/L 98-107 Above high normal [facility] ([facility]) Carbon Dioxide Level 28 meq/L 21-32 Normal (applies to non-num thu results) [facility] ([facility]) Anion Gap 4 meq/L 8-16 Below low normal [facility] ( [facility]) Calcium Level 7.7 mg/dL 8.8-10.2 Below low normal [facility] T ([facility]) Alkaline Phosphatase 85 U/L 45-117 Normal (applies to non-num thu results) [facility] ([facility]) Ast/Sgot 14 U/L 7-37 Normal (applies to non-numeric resul ts) [facility] ([facility]) Alt/SGPT 18 U/L 12-78 Normal (applies to non-numeric resul ts) [facility] ([facility]) Total Protein 5.2 GM/DL 6.4-8.2 Below low normal [facility] T ([facility]) Bilirubin,Total 0.4 mg/dL 0.2-1.0 Normal (applies to non-numeric results) [facility]) Albumin 2.4 GM/DL 3.2-5.2 Below low normal [facility] ( [facility]) Albumin/Globulin Ratio 0.86 1.00-1.93 Below low normal [facility] ([facility]) ID Date Data Source [id number] 07/23/2019 06:41:00 AM EDT [facility] ([facility]) Name Value Range Interpretation Code Description Data Dana rce(s) Supporting Document(s) White Blood Count 13.2 10 4.0-10.0 Above high normal [facility] ([facility]) Red Blood Count 3.51 10 4.00-5.40 Below low normal [facility] ([facility]) Hemoglobin 11.5 g/dL 12.0-15.5 Below low normal [facility] ( [facility]) Hematocrit 35.2 % 36.0-47.0 Below low normal [facility] ( [facility]) Mean Corpuscular Hemoglobin 32.8 pg 27.0-33.0 Norm al (applies to non-numeric results) [facility] ([facility]) Mean Corpuscular Volume 100.3 fl 80.0-96.0 Above high normal [facility] ([facility]) Mean Corpuscular HGB Conc 32.7 g/dL 32.0-36.5 Normal (applies to non-numeric results) [facility] ([facility]) Red Cell Distribution Width 13.5 % 11.5-14.5 Norm al (applies to non-numeric results) [facility] ([facility]) Neutrophils % 81.3 % 36.0-66.0 Above high normal [facility]E NT ([facility]) Platelet Count, Automated 248 10 150-450 Normal (applies to non-numeric results) [facility] ([facility]) Lymph % 10.0 % 24.0-44.0 Below low normal [facility] ( [facility]) [place] % 7.9 % 0.0-5.0 Above high normal [facility] ([facility]) Eos % 0.2 % 0.0-3.0 Normal (applies to non-numeric resul ts) [facility] ([facility]) Baso % 0.2 % 0.0-1.0 Normal (applies to non-numeric resul ts) [facility] ([facility]) Immature Granulocyte % 0.4 % 0-3.0 Normal (applies to non-n umeric results) [facility] ([facility]) Neutrophils # 10.8 10 1.5-8.5 Above high normal [facility]E NT ([facility]) Nucleated Red Blood Cell % 0.0 % 0-0 Normal (applies to n on-numeric results) [facility] ([facility]) Lymph # 1.3 10 1.5-5.0 Below low normal [facility] ( [facility]) [place] # 1.0 10 0.0-0.8 Above high normal [facility] ([facility]) Eos # 0.0 10 0.0-0.5 Normal (applies to non-numeric resul ts) [facility] ([facility]) Baso # 0.0 10 0.0-0.2 Normal (applies to non-numeric resul ts) [facility] ([facility]) ID Date Data Source [id number] 07/22/2019 07:08:00 AM EDT [facility] ([facility]) Name Value Range Interpretation Code Description Data Dana rce(s) Supporting Document(s) Surgical pathology study Laboratory test result [facility] ([facility]) FINAL DIAGNOSIS Appendix, appendectomy: Suppurative appendicitis with [...] M.D. 07/23/2019 1204 ID Date Data Source [id number] 07/22/2019 04:34:00 AM EDT [facility] ([facility] Name Value Range Interpretation Code Description Data Dana rce(s) Supporting Document(s) Glucose [Mass/volume] in Capillary blood by Glucometer 97 mg/dL 83-110 Normal (applies to non-numeric results) [facility] ([facility] ID Date Data Source [id number] 07/22/2019 04:34:00 AM EDT [facility] ([facility]) Name Value Range Interpretation Code Description Data Dana rce(s) Supporting Document(s) Glucose [Mass/volume] in Capillary blood by Glucometer 97 mg/dL 83-110 Normal (applies to non-numeric results) [facility]) ID Date Data Source [id number] 07/21/2019 08:23:00 PM EDT [facility] ([facility] Name Value Range Interpretation Code Description Data Dana rce(s) Supporting Document(s) Reflex Urine Culture Laboratory test result Norm al (applies to non-numeric results) [facility] ([facility] ) FULL REPORT IN LAB NOTES (eCW and [facility] ). NO GROWTH CLINICAL SIGNIFICANCE 1 ORGANISM ID Date Data Source [id number] 07/21/2019 08:23:00 PM EDT [facility] ([facility] Name Value Range Interpretation Code Description Data Dana rce(s) Supporting Document(s) Appearance, Urine RFX Laboratory test result Nor mal (applies to non-numeric results) [facility] ([facility] ) Specific Echo Ur Auto RFX 1.024 1.002-1.035 Nor mal (applies to non-numeric results) [facility] ([facility] ) PH,Urine RFX 5.0 units 5.0-9.0 Normal (applies to non-numeric res ults) [facility] ([facility] Color, Urine RFX Laboratory test result Normal ( applies to non-numeric results) [facility] ([facility] ) Ketone, Urine Auto RFX Laboratory test result No rmal (applies to non-numeric results) [facility] ([facility] ) Glucose, Urine (Ua) Auto RFX Laboratory test result Normal (applies to non- numeric results) [facility] ([facility] ) Protein, Urine Auto RFX Laboratory test result N ormal (applies to non-numeric results) [facility] ([facility] ) Bilirubin, Urine Auto RFX Laboratory test result Normal (applies to non- numeric results) [facility] ([facility] ) Urobilinogen, Urine Auto RFX 0.2 mg/dL 0.0-2.0 Nor mal (applies to non-numeric results) [facility] ([facility] ) Nitrite, Urine Auto RFX Laboratory test result N ormal (applies to non-numeric results) [facility] ([facility] ) Blood, Urine Blood RFX Laboratory test result No rmal (applies to non-numeric results) [facility] ([facility] ) Leukocyte Esterase Ur Auto RFX Laboratory test result Abov e high normal [facility] ([facility] Bacteria, Urine Auto RFX Laboratory test result Normal (applies to non-numeric results) [facility] ([facility] ) RBC, Urine Auto RFX 1 /HPF 0-3 Normal (applies to non-nume fiorella results) [facility] ([facility] WBC, Urine Auto RFX 14 /HPF 0-3 Above high normal [facility] ([facility] Squam Epithelial Cell Ur Aurfx 0 /HPF 0-6 N ormal (applies to non-numeric results) [facility] ([facility] ) Mucus, Urine RFX Laboratory test result Normal ( applies to non-numeric results) [facility] ([facility] ) Hyaline Cast, Urine Auto RFX 0 /LPF 0-1 Normal (appl ies to non-numeric results) [facility] ([facility] ID Date Data Source [id number] 07/21/2019 08:23:00 PM EDT [facility] ([facility], ) Name Value Range Interpretation Code Description Data Dana rce(s) Supporting Document(s) Reflex Urine Culture Laboratory test result Norm al (applies to non-numeric results) [facility] ([facility], ) FULL REPORT IN LAB NOTES (eCW and [facility] ). NO GROWTH CLINICAL SIGNIFICANCE 1 ORGANISM ID Date Data Source [id number] 07/21/2019 08:03:00 PM EDT [facility] ([facility] Name Value Range Interpretation Code Description Data Dana rce(s) Supporting Document(s) Lipoprotein lipase [Enzymatic activity/volume] in Serum or Plasm a 88 U/L 73-393 Normal (applies to non-numeric results) [facility] ([facility] <content>note:<nlbl:[email or web address]> </content>
<content></content> ID Date Data Source [id number] 07/21/2019 08:03:00 PM EDT [facility] ([facility] Name Value Range Interpretation Code Description Data Dana rce(s) Supporting Document(s) Glucose, Fasting 110 mg/dL 70-100 Above high normal M EDENT ([facility] Creatinine For GFR 0.62 mg/dL 0.55-1.30 Normal (applies to non -numeric results) [facility] ([facility] Glomerular Filtration Rate Laboratory test result Normal (applies to non- numeric results) [facility] ([facility] ) <content>Units are mL/min/1.73 m2</content>
<content></content>
<content>Chronic Kidney Disease Staging per NKF:</content>
<content></content>
<content>Stage I & II GFR >=60 Normal to Mildly Decreased</content>
<content>Stage III GFR 30-59 Moderately Decreased</content>
<content>Stage IV GFR 15-29 Severely Decreased</content>
<content>Stage V GFR <15 Very Little GFR Left</content>
<content>ESRD GFR <15 on LAB SUPPORT TECHNICIAN</content>
<content></content> Blood Urea Nitrogen 18 mg/dL 7-18 Normal (applies to non-nume fiorella results) [facility] ([facility] Sodium Level 141 meq/L 136-145 Normal (applies to non-numeric res ults) [facility] ([facility] Chloride Level 109 meq/L 98-107 Above high normal [facility] ([facility] Potassium Serum 3.8 meq/L 3.5-5.1 Normal (applies to non-numeric results) [facility] ([facility] Calcium Level 8.5 mg/dL 8.8-10.2 Below low normal [facility] T ([facility] Carbon Dioxide Level 30 meq/L 21-32 Normal (applies to non-num thu results) [facility] ([facility] Anion Gap 2 meq/L 8-16 Below low normal [facility] ( [facility] ID Date Data Source [id number] 07/21/2019 08:03:00 PM EDT [facility] ([facility] Name Value Range Interpretation Code Description Data Dana rce(s) Supporting Document(s) Ast/Sgot 12 U/L 7-37 Normal (applies to non-numeric resul ts) [facility] ([facility] Alkaline Phosphatase 92 U/L 45-117 Normal (applies to non-num thu results) [facility] ([facility] Alt/SGPT 16 U/L 12-78 Normal (applies to non-numeric resul ts) [facility] ([facility] Total Protein 5.7 GM/DL 6.4-8.2 Below low normal [facility] T ([facility] Bilirubin,Total 0.3 mg/dL 0.2-1.0 Normal (applies to non-numeric results) [facility] ([facility] Bilirubin,Direct Laboratory test result 0.0-0.2 Normal ( applies to non-numeric results) [facility] ([facility] ) Albumin 2.8 GM/DL 3.2-5.2 Below low normal [facility] ( [facility] Albumin/Globulin Ratio 0.97 1.00-1.93 Below low normal [facility] ([facility] ID Date Data Source [id number] 07/21/2019 08:03:00 PM EDT [facility] ([facility] Name Value Range Interpretation Code Description Data Dana rce(s) Supporting Document(s) Red Blood Count 3.73 10 4.00-5.40 Below low normal [facility] ([facility] White Blood Count 12.5 10 4.0-10.0 Above high normal [facility] ([facility] Mean Corpuscular Volume 98.9 fl 80.0-96.0 Above high normal [facility] ([facility] Hemoglobin 12.0 g/dL 12.0-15.5 Normal (applies to non-numeric resul ts) [facility] ([facility] Hematocrit 36.9 % 36.0-47.0 Normal (applies to non-numeric resul ts) [facility] ([facility] Red Cell Distribution Width 13.3 % 11.5-14.5 Norm al (applies to non-numeric results) [facility] ([facility] ) Mean Corpuscular Hemoglobin 32.2 pg 27.0-33.0 Norm al (applies to non-numeric results) [facility] ([facility] ) Mean Corpuscular HGB Conc 32.5 g/dL 32.0-36.5 Normal (applies to non-numeric results) [facility] ([facility] ) Platelet Count, Automated 283 10 150-450 Normal (applies to non-numeric results) [facility] ([facility] ) Neutrophils % 78.6 % 36.0-66.0 Above high normal MEDE NT ([facility] [place] % 10.0 % 0.0-5.0 Above high normal [facility] ([facility] Lymph % 9.4 % 24.0-44.0 Below low normal [facility] ( [facility] Eos % 1.0 % 0.0-3.0 Normal (applies to non-numeric resul ts) [facility] ([facility] Immature Granulocyte % 0.4 % 0-3.0 Normal (applies to non-n umeric results) [facility] ([facility] Nucleated Red Blood Cell % 0.0 % 0-0 Normal (applies to n on-numeric results) [facility] ([facility] Baso % 0.6 % 0.0-1.0 Normal (applies to non-numeric resul ts) [facility] ([facility] Lymph # 1.2 10 1.5-5.0 Below low normal [facility] ( [facility] Neutrophils # 9.9 10 1.5-8.5 Above high normal [facility] NT ([facility] [place] # 1.3 10 0.0-0.8 Above high normal [facility] ([facility] Eos # 0.1 10 0.0-0.5 Normal (applies to non-numeric resul ts) [facility] ([facility] Baso # 0.1 10 0.0-0.2 Normal (applies to non-numeric resul ts) [facility] ([facility] ID Date Data Source [id number] 07/21/2019 11:38:00 AM EDT [facility] ([facility] Name Value Range Interpretation Code Description Data Dana rce(s) Supporting Document(s) Color Urine Laboratory test result M EDENT ([facility] Appearance of Urine Laboratory test result [facility] ([facility] PH Urine 6.5 5.0-8.0 [facility] ([facility] Specific Echo 1.020 1.00-1.03 [facility] ([facility] Glucose Urine Laboratory test result [facility] ([facility] Bilirubin.total [Presence] in Urine by Test strip Laboratory test res ult [facility] ([facility] Blood Urine Laboratory test result M EDENT ([facility] Ketones Laboratory test result [facility] ([facility] Urobilinogen 0.2 EU/dl 0.2-1.0 [facility] ([facility] Nitrite Laboratory test result [facility] ([facility] Protein Urine Laboratory test result [facility] ([facility] Leukocytes Laboratory test result Above high normal [facility] ([facility] ID Date Data Source [id number] 07/21/2019 11:16:00 AM EDT [facility] ([facility] Name Value Range Interpretation Code Description Data Dana rce(s) Supporting Document(s) Glu 130 mg/dL 70-110 Above high normal [facility] ([facility] NORMAL RANGES [...] >32 mL/min Normal BUN 16 mg/dL 8 [facility] NORMAL RANGES Age [...] HCT IS 5% LESS SOURCE FOR DATA: [employer] 1800 OPERATION MANUAL( AUTOMATED BLOOD COUNTS AND [...] >32 mL/min Normal Creat 0.7 mg/dL 0.5-1.0 [facility] ([facility] NORMAL [...] HCT IS 5% LESS SOURCE FOR DATA: [employer] 1800 OPERATION MANUAL( AUTOMATED BLOOD COUNTS AND [...] >32 mL/min Normal BUN/Creatinine Ratio 22.8 CALC [facility] ([facility] NORMAL RANGES Age [...] HCT IS 5% LESS SOURCE FOR DATA: [employer] 1800 OPERATION MANUAL( AUTOMATED BLOOD COUNTS AND [...] >32 mL/min Normal K 3.9 mmol/L 3.5-5.1 [facility] ([facility] NORMAL [...] HCT IS 5% LESS SOURCE FOR DATA: [employer] 1800 OPERATION MANUAL( AUTOMATED BLOOD COUNTS AND [...] >32 mL/min Normal Na 138 mmol/L 136-145 [facility] NORMAL RANGES Age WBC RBC [...] HCT IS 5% LESS SOURCE FOR DATA: [employer] 1800 OPERATION MANUAL( AUTOMATED BLOOD COUNTS AND [...] CL 102.6 mmol/L 98.0-107.0 [facility] ([facility] NORMAL RANGES Age WBC [...] HCT IS 5% LESS SOURCE FOR DATA: [employer] 1800 OPERATION MANUAL( AUTOMATED BLOOD COUNTS AND [...] >32 mL/min Normal Co2 23.1 mmol/L 22.0-29.0 [facility] ([facility] NORMAL [...] HCT IS 5% LESS SOURCE FOR DATA: [employer] 1800 OPERATION MANUAL( AUTOMATED BLOOD COUNTS AND [...] >32 mL/min Normal CA 9.0 mg/dL 8.6-10.2 [facility] NORMAL RANGES Age WBC [...] HCT IS 5% LESS SOURCE FOR DATA: [employer] 1800 OPERATION MANUAL( AUTOMATED BLOOD COUNTS AND [...] TP 5.8 g/dL 6.6-8.7 Below low normal [facility] ( [facility] NORMAL RANGES [...] HCT IS 5% LESS SOURCE FOR DATA: [employer] 1800 OPERATION MANUAL( AUTOMATED BLOOD COUNTS AND [...] >32 mL/min Normal Alb 3.8 g/dL 3.4-4.8 [facility] NORMAL RANGES Age [...] >32 mL/min Normal A/G Ratio 1.8 [facility]C [facility] NORMAL RANGES Age [...] HCT IS 5% LESS SOURCE FOR DATA: [employer] 1800 OPERATION MANUAL( AUTOMATED BLOOD COUNTS AND [...] mL/min Normal Globulin 2.1 CALC [facility] NORMAL RANGES Age [...] HCT IS 5% LESS SOURCE FOR DATA: [employer] 1800 OPERATION MANUAL( AUTOMATED BLOOD COUNTS AND [...] >32 mL/min Normal Alp 104.5 U/L 35-129 [facility] NORMAL RANGES Age [...] HCT IS 5% LESS SOURCE FOR DATA: [employer] 1800 OPERATION MANUAL( AUTOMATED BLOOD COUNTS AND [...] mL/min Normal Alt (SGPT) 10 U/L 0-41 [facility] ([facility] NORMAL [...] HCT IS 5% LESS SOURCE FOR DATA: [employer] 1800 OPERATION MANUAL( AUTOMATED BLOOD COUNTS AND [...] mL/min Normal Ast (Sgot) 14 U/L 0-40 [facility] ([facility] NORMAL [...] HCT IS 5% LESS SOURCE FOR DATA: [employer] 1800 OPERATION MANUAL( AUTOMATED BLOOD COUNTS AND [...] >32 mL/min Normal Tbili 0.28 mg/dL 0.0-1.2 [facility] [facility] NORMAL RANGES Age WBC RBC [...] HCT IS 5% LESS SOURCE FOR DATA: [employer] 1800 OPERATION MANUAL( AUTOMATED BLOOD COUNTS AND [...] mL/min Normal Osmolality-Calculated 278.5 [facility]C [facility] ([facility] NORMAL RANGES Age WBC RBC [...] HCT IS 5% LESS SOURCE FOR DATA: [employer] 1800 OPERATION MANUAL( AUTOMATED BLOOD COUNTS AND [...] mL/min Normal eGFR 92 # MARY ( [facility] CKD-EPI Anion Gap 16 mmol/L MARY ([facility] NORMAL RANGES Age WBC [...] HCT IS 5% LESS SOURCE FOR DATA: [employer] 1800 OPERATION MANUAL( AUTOMATED BLOOD COUNTS AND [...] and above >32 mL/min Normal eGFR Non-Afr. Surinamese 80 # [facility] ([facility] CKD-EPI ID Date Data Source [id number] 07/21/2019 11:16:00 AM EDT MARY ([facility] Name Value Range Interpretation Code Description Data Dana rce(s) Supporting Document(s) WBC 9.6 10E3/uL 4.1-10.9 [facility] ([facility] NORMAL RANGES Age WBC RBC [...] HCT IS 5% LESS SOURCE FOR DATA: [employer] 1800 OPERATION MANUAL( AUTOMATED BLOOD COUNTS AND [...] >32 mL/min Normal HGB 13.8 g/dL 12.0-18.0 [facility] ([facility] NORMAL RANGES Age WBC [...] HCT IS 5% LESS SOURCE FOR DATA: [employer] 1800 OPERATION MANUAL( AUTOMATED BLOOD COUNTS AND [...] >32 mL/min Normal RBC 4.23 10E6/uL 4.20-6.30 [facility] ([facility] NORMAL RANGES Age WBC RBC [...] HCT IS 5% LESS SOURCE FOR DATA: [employer] 1800 OPERATION MANUAL( AUTOMATED BLOOD COUNTS AND [...] >32 mL/min Normal HCT 41.7 % 37.0-51.0 [facility] ([facility] NORMAL [...] HCT IS 5% LESS SOURCE FOR DATA: [employer] 1800 OPERATION MANUAL( AUTOMATED BLOOD COUNTS AND [...] HCT IS 5% LESS SOURCE FOR DATA: [employer] 1800 OPERATION MANUAL( AUTOMATED BLOOD COUNTS AND [...] MCH 32.6 pg 26.0-32.0 Above high normal [facility] ([facility] NORMAL RANGES [...] HCT IS 5% LESS SOURCE FOR DATA: [employer] 1800 OPERATION MANUAL( AUTOMATED BLOOD COUNTS AND [...] >32 mL/min Normal MCHC 33.1 g/dL 31.0-36.0 [facility] ([facility] NORMAL [...] HCT IS 5% LESS SOURCE FOR DATA: [employer] 1800 OPERATION MANUAL( AUTOMATED BLOOD COUNTS AND [...] >32 mL/min Normal RDW-CV 13.7 % 11.5-14.5 [facility] ([facility] NORMAL RANGES Age WBC [...] HCT IS 5% LESS SOURCE FOR DATA: [employer] 1800 OPERATION MANUAL( AUTOMATED BLOOD COUNTS AND [...] >32 mL/min Normal PLT 316 10E3/uL 140-440 [facility] ([facility] NORMAL RANGES Age WBC RBC HGB [...] >32 mL/min Normal Lym% 12.1 % 10.0-58.5 [facility] ([facility] NORMAL RANGES Age [...] HCT IS 5% LESS SOURCE FOR DATA: [employer] 1800 OPERATION MANUAL( AUTOMATED BLOOD COUNTS AND [...] >32 mL/min Normal Neut% 81.7 % 37.0-92.0 [facility] ([facility] NORMAL [...] HCT IS 5% LESS SOURCE FOR DATA: [employer] 1800 OPERATION MANUAL( AUTOMATED BLOOD COUNTS AND [...] >32 mL/min Normal MXD% 6.2 % 0.1-24.0 [facility] ([facility] NORMAL [...] HCT IS 5% LESS SOURCE FOR DATA: [employer] 1800 OPERATION MANUAL( AUTOMATED BLOOD COUNTS AND [...] >32 mL/min Normal Neut# 7.8 % 2.0-7.8 [facility] ([facility] NORMAL [...] HCT IS 5% LESS SOURCE FOR DATA: [employer] 1800 OPERATION MANUAL( AUTOMATED BLOOD COUNTS AND [...] >32 mL/min Normal Lym# 1.2 10E3/uL 0.6-4.1 [facility] ([facility] NORMAL RANGES Age WBC RBC [...] HCT IS 5% LESS SOURCE FOR DATA: [employer] 1800 OPERATION MANUAL( AUTOMATED BLOOD COUNTS AND [...] >32 mL/min Normal MXD# 0.6 10E3/uL 0.0-1.8 [facility] ([facility] NORMAL RANGES Age WBC RBC [...] HCT IS 5% LESS SOURCE FOR DATA: [employer] 1800 OPERATION MANUAL( AUTOMATED BLOOD COUNTS AND [...] >32 mL/min Normal MPV 10.7 fL 9.0-13.0 [facility] ([facility] NORMAL RANGES Age WBC [...] HCT IS 5% LESS SOURCE FOR DATA: [employer] 1800 OPERATION MANUAL( AUTOMATED BLOOD COUNTS AND [...] >32 mL/min Normal ID Date Data Source [id number] 06/17/2019 12:00:00 AM EDT [facility] DO Patient Name: FABIOLA JAMES [facility] Date of : [address], [place] [address] Date of Exam: 06/17/2019PH#: Fax: [phone] EXAM: [...] rce(s) Supporting Document(s) ID Date Data Source [id number] 06/17/2019 12:00:00 AM EDT [facility] Fish DO Patient Name: FABIOLA JAMES [facility] Date of : [address] [address] Date of Exam: 06/17/2019PH#: Fax: [phone] EXAM: [...] Code Description Data Dnaa rce(s) Supporting Document(s) ID Date Data Source [id number] 05/26/2019 12:00:00 AM EST [facility] DO Patient Name: FABIOLA JAMES [facility] Date of : [address] [address] Date of Exam: 05/26/2019PH#: Fax: [phone] EXAM: [...] is recommended in 6 months.Accredited by the [employer] in General Ultrasound.CHANCE Ken/Kennedi you for referring ROWAN AJMES to our office. Electronically Signed - BRIAN SOMMER MD 05/26/19 15:49 Name Value Range Interpretation Code Description Data Dana rce(s) Supporting Document(s) ID Date Data Source [id number] 05/17/2019 11:48:00 AM EST [facility] ([facility]) Name Value Range Interpretation Code Description Data Dana rce(s) Supporting Document(s) Appearance, Urine RFX Laboratory test result [facility] ([facility]) Color, Urine RFX Laboratory test result [facility] ([facility]) PH,Urine RFX 8.0 units 5.0-9.0 [facility] ([facility]) Specific Echo Ur Auto RFX 1.028 1.002-1.035 [facility] ([facility]) Protein, Urine Auto RFX Laboratory test result [facility] ([facility]) Urobilinogen, Urine Auto RFX 0.2 mg/dL 0.0-2.0 [facility] ([facility]) Glucose, Urine (Ua) Auto RFX Laboratory test result [facility] ([facility]) Ketone, Urine Auto RFX Laboratory test result [facility] ([facility]) Bilirubin, Urine Auto RFX Laboratory test result [facility] ([facility]) Leukocyte Esterase Ur Auto RFX Laboratory test result [facility] ([facility]) Nitrite, Urine Auto RFX Laboratory test result [facility] ([facility]) Bacteria, Urine Auto RFX Laboratory test result [facility] ([facility]) RBC, Urine Auto RFX 2 /HPF 0-3 [facility] Blood, Urine Blood RFX Laboratory test result [facility] ([facility] WBC, Urine Auto RFX 0 /HPF 0-3 [facility] Hyaline Cast, Urine Auto RFX 0 /LPF 0-1 [facility] ([facility] Squam Epithelial Cell Ur Aurfx 0 /HPF 0-6 [facility] ([facility]) ID Date Data Source [id number] 05/17/2019 08:43:00 AM EST [facility] ([facility] Name Value Range Interpretation Code Description Data Dana rce(s) Supporting Document(s) Lipoprotein lipase [Enzymatic activity/volume] in Serum or P lasma 149 U/L 73-393 [facility] ([facility] <content>note:<nlbl:demographic_changed></content>
<content>note:<nlbl:demog raphic_changed></content>
<content></content> ID Date Data Source [id number] 05/17/2019 08:43:00 AM EST [facility] ([facility]) Name Value Range Interpretation Code Description Data Dana rce(s) Supporting Document(s) Blood Urea Nitrogen 24 mg/dL 7-18 [facility] ([facility] Glucose, Fasting 92 mg/dL 70-100 [facility] ([facility]) Creatinine For GFR 0.72 mg/dL 0.55-1.30 [facility] ([facility]) Glomerular Filtration Rate Laboratory test result [facility] ([facility] ) <content>Units are mL/min/1.73 m2</content>
<content></content>
<content>Chronic Kidney Disease Staging per NKF:</content>
<content></content>
<content>Stage I & II GFR >=60 Normal to Mildly Decreased</content>
<content>Stage III GFR 30-59 Moderately Decreased</content>
<content>Stage IV GFR 15-29 Severely Decreased</content>
<content>Stage V GFR <15 Very Little GFR Left</content>
<content>ESRD GFR <15 on LAB SUPPORT TECHNICIAN</content>
<content></content> Sodium Level 142 meq/L 136-145 [facility] Carbon Dioxide Level 32 meq/L 21-32 [facility] Anion Gap 2 meq/L 8-16 [facility] Potassium Serum 4.9 meq/L 3.5-5.1 [facility] ([facility]) Chloride Level 108 meq/L 98-107 [facility] ([facility] Calcium Level 9.4 mg/dL 8.8-10.2 [facility] ([facility] ID Date Data Source [id number] 05/17/2019 08:43:00 AM EST [facility] ([facility]) Name Value Range Interpretation Code Description Data Dana rce(s) Supporting Document(s) Ast/Sgot 18 U/L 7-37 [facility] ([facility] Alkaline Phosphatase 91 U/L 45-117 [facility] ( [facility] Alt/SGPT 37 U/L 12-78 [facility] ([facility] Total Protein 6.2 GM/DL 6.4-8.2 [facility] ([facility] Bilirubin,Direct Laboratory test result 0.0-0.2 [facility] ([facility]) Bilirubin,Total 0.2 mg/dL 0.2-1.0 [facility] ([facility]) Albumin/Globulin Ratio 1.07 1.00-1.93 ME [facility] ([facility]) Albumin 3.2 GM/DL 3.2-5.2 [facility] ([facility] ID Date Data Source [id number] 05/17/2019 08:43:00 AM EST [facility] ([facility]) Name Value Range Interpretation Code Description Data Dana rce(s) Supporting Document(s) CPK Creatine Phosphokinase 56 U/L 26-192 [facility] ([facility]) CK-MB Value Mass 1.1 ng/mL [facility] ([facility]) MB/CK Relative Index 1.96 [facility] ([facility]) <content>DIAGNOSIS CRITERIA</content>
<content>MMB ng/ml Relative Index (RI)</content>
<content>NON-AMI < or = 5 N/A</content>
<content>SOMMER ZONE > 5 < or = 4</content>
<content>AMI > 5 > 4</content>
<content></content> Troponin I Laboratory test result [facility] ([facility]) <content>Troponin I Reference Interval f or Siemens [place] LOCI:</content>
<content></content>
<content>99th Percentile= 0.00-0.045 ng/ml</content>
<content></content>
<content>Risk Stratification:</content>
<content><= 0.10 ng/ml Decreased Risk for Adverse Clinical</content>
<content>Events.</content>
<content>0.10-1.50 ng/ml Increased Risk for Adverse Clinical</content>
<content>Events. Evaluation of additional</content>
<content>criterion and/or repeat testing in 2-6</content>
<content>hours is suggested to rule out myocardial</content>
<content>damage.</content>
<content>>= 1.50 ng/ml Indicative of Myocardial Injury.</content>
<content></content> ID Date Data Source [id number] 05/17/2019 08:43:00 AM EST [facility] ([facility]) Name Value Range Interpretation Code Description Data Dana rce(s) Supporting Document(s) White Blood Count 12.3 10 4.0-10.0 [facility] ([facility]) Red Blood Count 4.40 10 4.00-5.40 [facility] ([facility]) Hemoglobin 14.2 g/dL 12.0-15.5 [facility] ([facility]) Hematocrit 42.0 % 36.0-47.0 [facility] Mean Corpuscular Volume 95.5 fl 80.0-96.0 M [facility] ([facility]) Mean Corpuscular HGB Conc 33.8 g/dL 32.0-36.5 [facility] ([facility]) Red Cell Distribution Width 13.0 % 11.5-14.5 [facility] ([facility]) Mean Corpuscular Hemoglobin 32.3 pg 27.0-33.0 [facility] ([facility]) Neutrophils % 75.9 % 36.0-66.0 [facility] ([facility] Lymph % 14.3 % 24.0-44.0 [facility] ([facility] Platelet Count, Automated 379 10 150-450 [facility] ([facility]) [place] % 7.5 % 0.0-5.0 [facility] ([facility] Eos % 1.1 % 0.0-3.0 [facility] ([facility]) Baso % 0.4 % 0.0-1.0 [facility] ([facility]) Nucleated Red Blood Cell % 0.0 % 0-0 [facility] ([facility]) Neutrophils # 9.3 10 1.5-8.5 [facility] ([facility]) Immature Granulocyte % 0.8 % 0-3.0 [facility] ([facility]) Lymph # 1.8 10 1.5-5.0 [facility] ([facility] Eos # 0.1 10 0.0-0.5 [facility] ([facility] [place] # 0.9 10 0.0-0.8 [facility] ([facility] Baso # 0.1 10 0.0-0.2 [facility] ([facility] ID Date Data Source [id number] 05/17/2019 08:30:00 AM EST [facility] ([facility]) Name Value Range Interpretation Code Description Data Dana rce(s) Supporting Document(s) Gastrointestinal (GI) Panel Laboratory test result [facility] ([facility]) This Gastrointestinal PCR [...] NUCLEIC ACID PCR ID Date Data Source [id number] 05/11/2019 04:11:00 AM EST [facility] ([facility] Name Value Range [...] mmol/L Normal (applies to non-numeric results) [facility] ([facility]) Laboratory test finding (navigational concept) 25.0 mmol/L 2 3.0-27.0 Normal (applies to non-numeric results) [facility] Laboratory test finding (navigational concept) 24.3 mmol/L 2 2.0-26.0 Normal (applies to non-numeric results) [facility] ([facility] Laboratory test finding (navigational concept) 90 % 95-98 Below low normal [facility] ([facility] ID Date Data Source [id number] 05/11/2019 12:22:00 AM EST [facility] Name Value Range Interpretation Code Description Data Dana rce(s) Supporting Document(s) Red Blood Count 4.27 10 4.00-5.40 Normal (applies to non-numeric results) [facility] ([facility] White Blood Count 5.9 10 4.0-10.0 Normal (applies to non-numeri c results) [facility] ([facility] Mean Corpuscular Volume 97.7 fl 80.0-96.0 Above high normal [facility] ([facility] Hematocrit 41.7 % 36.0-47.0 Normal (applies to non-numeric resul ts) [facility] ([facility] Hemoglobin 13.7 g/dL 12.0-15.5 Normal (applies to non-numeric resul ts) [facility] ([facility] Mean Corpuscular Hemoglobin 32.1 pg 27.0-33.0 Norm al (applies to non-numeric results) [facility] ([facility] Red Cell Distribution Width 13.2 % 11.5-14.5 Norm al (applies to non-numeric results) [facility] ([facility] ) Mean Corpuscular HGB Conc 32.9 g/dL 32.0-36.5 Normal (applies to non-numeric results) [facility] ([facility] ) Platelet Count, Automated 223 10 150-450 Normal (applies to non-numeric results) [facility] ([facility] ) Lymph % 14.1 % 24.0-44.0 Below low normal [facility] ( [facility] [place] % 8.8 % 0.0-5.0 Above high normal [facility] ([facility] Neutrophils % [...] Normal (applies to non-numeric resul ts) [facility] ([facility] Neutrophils # 4.5 10 1.5-8.5 Normal (applies to non-numeric re sults) [facility] ([facility] Nucleated Red Blood Cell % 0.0 % 0-0 Normal (applies to n on-numeric results) [facility] ([facility] Lymph # 0.8 10 1.5-5.0 Below low normal [facility] ( [facility] [place] # 0.5 10 0.0-0.8 Normal (applies to non-numeric resul ts) [facility] ([facility] Baso # 0.0 10 0.0-0.2 Normal (applies to non-numeric resul ts) [facility] ([facility] Eos # 0.0 10 0.0-0.5 Normal (applies to non-numeric resul ts) [facility] ([facility] ID Date Data Source [id number] 05/11/2019 12:22:00 AM EST [facility] ([facility] Name Value Range Interpretation Code Description Data Dana rce(s) Supporting Document(s) Influenza A Amplification Laboratory test result Normal (applies to non- numeric results) [facility] ([facility] Negative results do not preclude influen za or RSV virus infection and should not be used as the sole basis for treatment or other patient management decisions. Influenza B Amplification Laboratory test result Normal (applies to non- numeric results) [facility] ([facility] Negative results do not preclude influen za or RSV virus infection and should not be used as the sole basis for treatment or other patient management decisions. ID Date Data Source [id number] 05/11/2019 12:22:00 AM EST [facility] ([facility] Name Value Range Interpretation Code Description Data Dana rce(s) Supporting Document(s) Glucose, Fasting 106 mg/dL 70-100 Above high normal M [facility] ([facility] Blood Urea Nitrogen 11 mg/dL 7-18 Normal (applies to non-nume fiorella results) [facility] ([facility] Glomerular Filtration Rate Laboratory test result Normal (applies to non- numeric results) [facility] ([facility] ) <content>Units are mL/min/1.73 m2</content>
<content></content>
<content>Chronic Kidney Disease Staging per NKF:</content>
<content></content>
<content>Stage I & II GFR >=60 Normal to Mildly Decreased</content>
<content>Stage III GFR 30-59 Moderately Decreased</content>
<content>Stage IV GFR 15-29 Severely Decreased</content>
<content>Stage V GFR <15 Very Little GFR Left</content>
<content>ESRD GFR <15 on LAB SUPPORT TECHNICIAN</content>
<content></content> Sodium Level 139 meq/L 136-145 Normal (applies to non-numeric res ults) [facility] ([facility] Creatinine For GFR 0.77 mg/dL 0.55-1.30 Normal (applies to non -numeric results) [facility] ([facility] Carbon Dioxide Level 30 meq/L 21-32 Normal (applies to non-num thu results) [facility] ([facility] Chloride Level 106 meq/L 98-107 Normal (applies to non-numeric r esults) [facility] ([facility] Potassium Serum 4.0 meq/L 3.5-5.1 Normal (applies to non-numeric results) [facility] ([facility] Anion Gap 3 meq/L 8-16 Below low normal [facility] ( [facility] Calcium Level 8.7 mg/dL 8.8-10.2 Below low normal [facility] ([facility] ID Date Data Source [id number] 05/11/2019 12:22:00 AM EST [facility] ([facility] Name Value Range Interpretation Code Description Data Dana rce(s) Supporting Document(s) CPK Creatine Phosphokinase 67 U/L 26-192 Blanca l (applies to non-numeric results) [facility] ([facility] ) Troponin I Laboratory test result Normal (applies to non-n umeric results) [facility] ([facility] <content>Troponin I Reference Interval f or Siemens [place] LOCI:</content>
<content></content>
<content>99th Percentile= 0.00-0.045 ng/ml</content>
<content></content>
[...] Normal (applies to non-num thu results) [facility] ([facility] <content>DIAGNOSIS CRITERIA</content>
<content>MMB ng/ml Relative Index (RI)</content>
<content>NON-AMI < or = 5 N/A</content>
<content>SOMMER ZONE > 5 < or = 4</content>
<content>AMI > 5 > 4</content>
<content></content> ID Date Data Source [id number] 05/11/2019 12:22:00 AM EST [facility] ([facility]) Name Value Range Interpretation Code Description Data Dana rce(s) Supporting Document(s) Glucose, Fasting 106 mg/dL 70-100 [facility] ([facility]) Blood Urea Nitrogen 11 mg/dL 7-18 [facility] ([facility] Creatinine For GFR 0.77 mg/dL 0.55-1.30 [facility] ([facility]) Glomerular Filtration Rate > 60.0 [facility] ([facility]) <content>Units are mL/min/1.73 m2</content>
<content></content>
<content>Chronic Kidney Disease Staging per NKF:</content>
<content></content>
<content>Stage I & II GFR >=60 Normal to Mildly Decreased</content>
<content>Stage III GFR 30-59 Moderately Decreased</content>
<content>Stage IV GFR 15-29 Severely Decreased</content>
<content>Stage V GFR <15 Very Little GFR Left</content>
<content>ESRD GFR <15 on LAB SUPPORT TECHNICIAN</content>
<content></content>
<content></content> Sodium Level 139 meq/L 136-145 [facility] ([facility]) Potassium Serum 4.0 meq/L 3.5-5.1 [facility] ([facility]) Chloride Level 106 meq/L 98-107 [facility] ([facility] Carbon Dioxide Level 30 meq/L 21-32 [facility] ([facility]) Calcium [Mass/volume] in Serum or Plasma 8.7 mg/dL 8.8-10.2 [facility] ([facility]) Anion Gap 3 meq/L 8-16 [facility] ([facility]) ID Date Data Source [id number] 05/11/2019 12:22:00 AM EST [facility] ([facility]) Name Value Range Interpretation Code Description Data Dana rce(s) Supporting Document(s) White Blood Count 5.9 10 4.0-10.0 [facility] ([facility]) Hematocrit [Volume Fraction] of Blood by Automated count 41.7 % 3 6.0-47.0 [facility] ([facility]) Hemoglobin 13.7 g/dL 12.0-15.5 [facility] ([facility] Red Blood Count 4.27 10 4.00-5.40 [facility] ([facility]) Mean Corpuscular Hemoglobin 32.1 pg 27.0-33.0 [facility] ([facility]) Mean Corpuscular Volume 97.7 fl 80.0-96.0 M [facility] ([facility]) Mean Corpuscular HGB Conc 32.9 g/dL 32.0-36.5 [facility] ([facility]) Neutrophils % 76.2 % 36.0-66.0 [facility] ([facility] Platelet Count, Automated 223 10 150-450 [facility] ([facility]) Red Cell Distribution Width 13.2 % 11.5-14.5 [facility] ([facility]) [place] % 8.8 % 0.0-5.0 [facility] ([facility] Eos % 0.2 % 0.0-3.0 [facility] ([facility] Lymphocytes/100 leukocytes in Blood by Automated count 14.1 % 24. 0-44.0 [facility] ([facility]) Baso % 0.2 % 0.0-1.0 [facility] ([facility] Nucleated Red Blood Cell % 0.0 % 0-0 [facility] ([facility] [facility] Immature Granulocyte % 0.5 % 0-3.0 MEDENT ([facility]) Lymph # 0.8 10 1.5-5.0 [facility] ([facility] [place] # 0.5 10 0.0-0.8 [facility] ([place] [facility]) Neutrophils # 4.5 10 1.5-8.5 MED[facility] ([facility]) Eos # 0.0 10 0.0-0.5 [facility] ([place] [facility] Baso # 0.0 10 0.0-0.2 [facility] ([place] [facility]) ID Date Data Source [id number] 05/04/2019 12:00:00 AM EST [facility] Nagi Fish DO Patient Name: CHELITA JAMES [facility], [address] Date of : [address], [place] [address] Date of Exam: 05/04/2019PH#: Fax: [phone] EXAM: [...] be madewith formal thyroid ultrasound.Accredited by the [employer] in Vascular CerebroUltrasound.CHANCE Ken/jmcThank you for referring ROWAN JAMES to our office. Electronically Signed - BRIAN SOMMER MD 05/04/19 15:28 Name Value Range Interpretation Code Description Data Dana rce(s) Supporting Document(s) ID Date Data Source [id number] 04/29/2019 12:05:00 PM EST [facility] ([facility] Name Value Range Interpretation Code Description Data Dana rce(s) Supporting Document(s) Thyrotropin [Units/volume] in Serum or Plasma 2.061 ulU/mL 0.60-4.8 [facility] ([facility] ID Date Data Source [id number] 04/29/2019 12:05:00 PM EST [facility] ([facility]) Name Value Range Interpretation Code Description Data Dana rce(s) Supporting Document(s) Thyrotropin [Units/volume] in Serum or Plasma 2.061 ulU/mL 0.60-4.8 [facility] ([facility]) ID Date Data Source [id number] 04/29/2019 12:04:00 PM EST MED[facility] ([facility] [...] 68 mg/dL 45-65 Above high normal MEDENT ([facility] ) CLASSIFICATION [...] YEARS EXCLUSIVE. LDL_C 114 Calc 75-129 MED[facility] ([facility] CLASSIFICATION CHOLESTEROL FO R [...] YEARS EXCLUSIVE. Cho/HDL Ratio 3.2 CALC MEDENT ([facility] CLASSIFICATION CHOLESTEROL FO R ADULTS [...] 2-19 YEARS EXCLUSIVE. ID Date Data Source [id number] 04/29/2019 12:04:00 PM EST MEDENT ([facility]) Name Value Range Interpretation Code Description Data Dana rce(s) Supporting Document(s) Chol 219 mg/dL 0-200 MEDENT ([facility]) CLASSIFICATION CHOLESTEROL FO R ADULTS CHILDREN/ADOLESCENTS* [...] Serum or Plasma 68 mg/dL 45-6 5 [facility] ([facility]) CLASSIFICATION CHOLESTEROL FO R ADULTS [...] YEARS EXCLUSIVE. LDL_C 114 Calc 75-129 MED[facility] ([facility]) CLASSIFICATION CHOLESTEROL FO R ADULTS CHILDREN/ADOLESCENTS* [...] YEARS EXCLUSIVE. Trig 180 mg/dL 40-200 MED[facility] ([facility]) CLASSIFICATION CHOLESTEROL FO R ADULTS CHILDREN/ADOLESCENTS* [...] YEARS EXCLUSIVE. Cho/HDL Ratio 3.2 CALC MED[facility] ([facility] ) CLASSIFICATION CHOLESTEROL FO R [...] 2-19 YEARS EXCLUSIVE. ID Date Data Source [id number] 03/22/2019 11:04:00 AM EST [facility] ([facility] Name Value Range Interpretation Code Description Data Dana rce(s) Supporting Document(s) Color Urine Laboratory test result M ROXY ([facility] Appearance of Urine Laboratory test result [facility] ([facility] Specific Echo 1.020 1.00-1.03 [facility] ([facility] Urobilinogen 0.2 EU/dl 0.2-1.0 [facility] ([facility] Nitrite Laboratory test result MARY ([facility] Leukocytes Laboratory test result ME FRIAS ([facility] ID Date Data Source [id number] 03/22/2019 11:03:00 AM EST MEDJONA ([facility] Name Value Range Interpretation Code Description Data Dana rce(s) Supporting Document(s) Glu 106 mg/dL 70-110 [facility] CHRONIC KIDNEY DISEASE [...] HCT IS 5% LESS SOURCE FOR DATA: [employer] 1800 OPERATION MANUAL( AUTOMATED BLOOD COUNTS AND DIFF.) APPENDIX B-3 BUN 14 mg/dL 11-13 [facility] ([facility] CHRONIC KIDNEY DISEASE STAGING [...] HCT IS 5% LESS SOURCE FOR DATA: [employer] 1800 OPERATION MANUAL( AUTOMATED BLOOD COUNTS AND DIFF.) APPENDIX B-3 Creat 0.7 mg/dL 0.5-1.0 [facility] CHRONIC KIDNEY DISEASE [...] HCT IS 5% LESS SOURCE FOR DATA: [employer]YN 1800 OPERATION MANUAL( AUTOMATED BLOOD COUNTS AND DIFF.) APPENDIX B-3 BUN/Creatinine Ratio 19.6 CALC MEDENT ([facility] CHRONIC KIDNEY DISEASE STAGING [...] HCT IS 5% LESS SOURCE FOR DATA: [employer]YN 1800 OPERATION MANUAL( AUTOMATED BLOOD COUNTS AND DIFF.) APPENDIX B-3 Co2 24.3 mmol/L 22.0-29.0 MEDENT ([facility] CHRONIC KIDNEY DISEASE STAGING PER [...] HCT IS 5% LESS SOURCE FOR DATA: [employer] 1800 OPERATION MANUAL( AUTOMATED BLOOD COUNTS AND DIFF.) APPENDIX B-3 CA 10.0 mg/dL 8.6-10.2 [facility] CHRONIC KIDNEY DISEASE STAGING PER [...] APPENDIX B-3 Na 137 mmol/L 136-145 MED[facility] ([facility] CHRONIC KIDNEY DISEASE STAGING PER [...] CL 103.3 mmol/L 98.0-107.0 MARY ([facility] CHRONIC KIDNEY DISEASE STAGING [...] HCT IS 5% LESS SOURCE FOR DATA: [employer] 1800 OPERATION MANUAL( AUTOMATED BLOOD COUNTS AND DIFF.) APPENDIX B-3 eGFR 93 # MEDENT ( [facility] CHRONIC KIDNEY [...] HCT IS 5% LESS SOURCE FOR DATA: [employer] 1800 OPERATION MANUAL( AUTOMATED BLOOD COUNTS AND DIFF.) APPENDIX B-3 Anion Gap 13 mmol/L [facility] ([facility] CHRONIC KIDNEY DISEASE STAGING PER NKF: [...] HCT IS 5% LESS SOURCE FOR DATA: [employer] 1800 OPERATION MANUAL( AUTOMATED BLOOD COUNTS AND DIFF.) APPENDIX B-3 eGFR Non-Afr. [place] 80 # MEDENT ([facility] CHRONIC KIDNEY [...] HCT IS 5% LESS SOURCE FOR DATA: [employer] 1800 OPERATION MANUAL( AUTOMATED BLOOD COUNTS AND DIFF.) APPENDIX B-3 ID Date Data Source [id number] 03/22/2019 11:03:00 AM MARYAN HERNANDEZ ([facility] Name Value Range Interpretation Code Description Data Dana rce(s) Supporting Document(s) WBC 6.7 10E3/uL 4.1-10.9 MARY ([facility] CHRONIC KIDNEY DISEASE STAGING PER [...] HCT IS 5% LESS SOURCE FOR DATA: [employer] 1800 OPERATION MANUAL( AUTOMATED BLOOD COUNTS [...] HCT IS 5% LESS SOURCE FOR DATA: [employer] 1800 OPERATION MANUAL( AUTOMATED BLOOD COUNTS AND [...] HCT IS 5% LESS SOURCE FOR DATA: [employer] 1800 OPERATION MANUAL( AUTOMATED BLOOD COUNTS AND DIFF.) APPENDIX B-3 HCT 41.2 % 37.0-51.0 [facility] CHRONIC KIDNEY DISEASE [...] DIFF.) APPENDIX B-3 MCHC 33.3 g/dL 31.0-36.0 [facility] CHRONIC KIDNEY DISEASE STAGING [...] MCH 32.7 pg 26.0-32.0 Above high normal [facility] ([facility] CHRONIC KIDNEY DISEASE STAGING PER [...] HCT IS 5% LESS SOURCE FOR DATA: [employer] 1800 OPERATION MANUAL( AUTOMATED BLOOD COUNTS AND DIFF.) APPENDIX B-3 RDW-CV 13.0 % 11.5-14.5 [facility] ([facility] CHRONIC KIDNEY DISEASE STAGING [...] HCT IS 5% LESS SOURCE FOR DATA: [employer] 1800 OPERATION MANUAL( AUTOMATED BLOOD COUNTS AND DIFF.) APPENDIX B-3 PLT 281 10E3/uL 140-440 [facility] ([facility] CHRONIC KIDNEY DISEASE STAGING PER [...] HCT IS 5% LESS SOURCE FOR DATA: [employer] 1800 OPERATION MANUAL( AUTOMATED BLOOD COUNTS AND DIFF.) APPENDIX B-3 Lym% 23.1 % 10.0-58.5 [facility] CHRONIC KIDNEY DISEASE STAGING [...] HCT IS 5% LESS SOURCE FOR DATA: [employer] 1800 OPERATION MANUAL( AUTOMATED BLOOD COUNTS AND DIFF.) APPENDIX B-3 MXD% 5.8 % 0.1-24.0 [facility] CHRONIC KIDNEY DISEASE [...] HCT IS 5% LESS SOURCE FOR DATA: [employer] 1800 OPERATION MANUAL( AUTOMATED BLOOD COUNTS AND [...] HCT IS 5% LESS SOURCE FOR DATA: [employer] 1800 OPERATION MANUAL( AUTOMATED BLOOD COUNTS AND DIFF.) APPENDIX B-3 Lym# 1.5 10E3/uL 0.6-4.1 MED[facility] ([facility] CHRONIC KIDNEY DISEASE STAGING PER [...] HCT IS 5% LESS SOURCE FOR DATA: [employer] 1800 OPERATION MANUAL( AUTOMATED BLOOD COUNTS AND DIFF.) APPENDIX B-3 Neut# 4.8 % 2.0-7.8 [facility] CHRONIC KIDNEY DISEASE [...] HCT IS 5% LESS SOURCE FOR DATA: [employer] 1800 OPERATION MANUAL( AUTOMATED BLOOD COUNTS AND DIFF.) APPENDIX B-3 MXD# 0.4 10E3/uL 0.0-1.8 [facility] ([facility] CHRONIC KIDNEY DISEASE STAGING PER NKF: [...] DIFF.) APPENDIX B-3 MPV 10.5 fL 9.0-13.0 [facility] ([facility] CHRONIC KIDNEY DISEASE STAGING [...] HCT IS 5% LESS SOURCE FOR DATA: [employer] 1800 OPERATION MANUAL( AUTOMATED BLOOD COUNTS AND DIFF.) APPENDIX B-3 Procedure Social History Code Duration Value Status Description Data Source(s ) Smoking 01/11/2020 12:00:00 AM EDT Patient is a former smoker completed Patient is a former smoker MARY ([facility] ) Vital Signs ID Date Data Source UNK Name Value Range Interpretation Code Description Data Source(s) Oxygen saturation in Arterial blood by Pulse oximetry 97 % 97 % MARY ([facility] Body mass index (BMI) [Ratio] 26.1 kg/m2 26.1 k g/m2 MARY ([facility] [place] body weight 110 [lb_av] 110 [lb_av] ADAMEN T ([facility] Body weight 145.00 [lb_av] 145.00 [lb_av] ADAMEN T ([facility] Body height 62.50 [in_i] 62.50 [in_i] MARY ([facility] 5'2.50" Respiratory rate 18 /min 18 /min MARY ( [facility] Heart rate 94 /min 94 /min MARY ([facility] Body temperature 98.2 [degF] 98.2 [degF] MARY ( [facility] Diastolic blood pressure 64 mm[Hg] 64 mm[Hg] MARY ([facility] Systolic blood pressure 100 mm[Hg] 100 mm[Hg] M EDENT ([facility] Oxygen saturation in Arterial blood by Pulse oximetry 97 % 97 % MEDENT ([facility] Body mass index (BMI) [Ratio] 26.5 kg/m2 26.5 k g/m2 [facility] ([facility] [place] body weight 110 [lb_av] 110 [lb_av] MEDEN T ([facility] Body weight 147.00 [lb_av] 147.00 [lb_av] MEDEN T ([facility] Body height 62.50 [in_i] 62.50 [in_i] MEDENT ([facility] 5'2.50" Respiratory rate 18 /min 18 /min MED[facility] ( [facility] Heart rate 72 /min 72 /min MED[facility] ([facility] Body temperature [...] k g/m2 [facility] ([facility] [place] body weight 110 [lb_av] 110 [lb_av] MEDEN T ([facility] Body weight 144.00 [lb_av] 144.00 [lb_av] MEDEN T ([facility] Body height 62.50 [in_i] 62.50 [in_i] MEDENT ([facility] 5'2.50" Respiratory rate 18 /min 18 /min MED[facility] ( [facility] Heart rate 98 /min 98 /min MEDENT ([facility] Body temperature 97.4 [degF] 97.4 [degF] MED[facility] ([facility] Diastolic blood pressure 68 mm[Hg] 68 mm[Hg] MED[facility] ([facility] Systolic blood pressure 130 mm[Hg] 130 mm[Hg] M EDENT ([facility] [place] body weight 110 [lb_av] 110 [lb_av] MEDEN T ([facility] Body weight 146.00 [lb_av] 146.00 [lb_av] MEDEN T ([facility] Body height 62.50 [in_i] 62.50 [in_i] MEDENT ([facility] 5'2.50" Respiratory rate 18 /min 18 /min MEDENT ( [facility] Heart rate 90 /min 90 /min MEDENT ([facility] Body temperature 97.2 [degF] 97.2 [degF] MEDENT ([facility] Diastolic blood pressure 58 mm[Hg] 58 mm[Hg] MEDENT ([facility] Systolic blood pressure 120 mm[Hg] 120 mm[Hg] M ROXY ([facility] Oxygen saturation in Arterial blood by Pulse oximetry 93 % 93 % ADAMENT ([facility] Body mass index (BMI) [Ratio] 26.3 kg/m2 26.3 k g/m2 MEDENT ([facility] Oxygen saturation in Arterial blood by Pulse oximetry 95 % 95 % MARY ([facility] ([place]), ([facility]) Body mass index (BMI) [Ratio] 26.6 kg/m2 26.6 k g/m2 MEDENT ([facility] Body weight 148.00 [lb_av] 148.00 [lb_av] MEDEN T ([facility] with back brace Body height 62.50 [in_i] 62.50 [in_i] MEDENT ([facility] 5'2.50" Respiratory rate 18 /min [...] weight 147.00 [lb_av] 147.00 [lb_av] MEDEN T ([facility] Body height 62.50 [in_i] 62.50 [in_i] MEDENT ([facility] 5'2.50" Respiratory rate [...] weight 144.00 [lb_av] 144.00 [lb_av] MEDEN T ([facility] Body height 62.50 [in_i] 62.50 [in_i] MEDENT ([facility] 5'2.50" Respiratory rate 16 /min 16 /min MEDENT ( [facility] Heart rate 72 /min 72 /min MED[facility] ([facility] Body temperature 98.2 [degF] 98.2 [degF] MEDENT ([facility] Diastolic blood pressure 70 mm[Hg] 70 mm[Hg] MEDENT ([facility] Systolic blood pressure 110 mm[Hg] 110 mm[Hg] [facility] Oxygen saturation in Arterial blood by Pulse oximetry 96 % 96 % MARY ([facility] ([place]), ([facility] [employer]) Diastolic blood pressure 82 mm[Hg] 82 mm[Hg] [facility] ([facility]) Systolic blood pressure 120 mm[Hg] 120 mm[Hg] [facility] ([facility]) Body weight 64.581 kg 64.581 kg [facility] ([facility]) Body mass index (BMI) [Ratio] 25.2 kg/m2 25.2 k g/m2 [facility] ([facility]) Body weight 142.38 [lb_av] 142.38 [lb_av] [facility] ([facility] Body height 63 [in_i] 63 [in_i] [facility] ([facility]) 5'3" Oxygen saturation in Arterial blood by Pulse oximetry 97 % 97 % MEDJONA ([facility] ([place]), ([facility] [employer]) Body mass index (BMI) [Ratio] 25.6 kg/m2 25.6 k g/m2 MEDENT ([facility] Body weight 142.00 [lb_av] 142.00 [lb_av] MEDEN T ([facility] Body height 62.50 [in_i] 62.50 [in_i] MEDENT ([facility] 5'2.50" Respiratory rate 20 /min 20 /min MEDENT ( [facility] Heart rate 88 /min 88 /min MEDENT ([facility] Body temperature 98.3 [degF] 98.3 [degF] MEDENT ([facility] Diastolic blood pressure 70 mm[Hg] 70 mm[Hg] MED[facility] ([facility] Systolic blood pressure 100 mm[Hg] 100 mm[Hg] M EDENT ([facility] Oxygen saturation in Arterial blood by Pulse oximetry 94 % 94 % MARY ([facility] Body mass index (BMI) [Ratio] 26.1 kg/m2 26.1 k g/m2 MEDENT ([facility] Body weight 145.00 [lb_av] 145.00 [lb_av] MEDEN T ([facility] Body height 62.50 [in_i] 62.50 [in_i] MEDENT ([facility] 5'2.50" Respiratory rate 18 /min 18 /min MEDENT ( [facility] Heart rate 86 /min 86 /min MEDJONA ([facility] Body temperature 97.7 [degF] 97.7 [degF] MEDJONA ([facility] Diastolic blood pressure 68 mm[Hg] 68 mm[Hg] MEDENT ([facility] Systolic blood pressure 116 mm[Hg] 116 mm[Hg] M EDENT ([facility] Oxygen saturation in Arterial blood by Pulse oximetry 96 % 96 % MEDENT ([facility]) Body mass index (BMI) [Ratio] 27.6 kg/m2 27.6 k g/m2 MEDENT ([facility]) Body weight 146.12 [lb_av] 146.12 [lb_av] MEDEN T ([facility]) Body height 61 [in_i] 61 [in_i] MEDENT ([facility]) 5'1" Heart rate 63 /min 63 /min MEDENT ([facility]) Diastolic blood pressure 62 mm[Hg] 62 mm[Hg] MEDENT ([facility]) Systolic blood pressure 110 mm[Hg] 110 mm[Hg] M EDENT ([facility]) Oxygen saturation in Arterial blood by Pulse oximetry 95 % 95 % MARY ([facility] ([place]), ([facility] [employer]) Body mass index (BMI) [Ratio] 25.9 kg/m2 25.9 k g/m2 MEDENT ([facility] Body weight 144.00 [lb_av] 144.00 [lb_av] MEDEN T ([facility] Body height 62.50 [in_i] 62.50 [in_i] MEDENT ([facility] 5'2.50" Respiratory rate 16 /min 16 /min MEDENT ( [facility] Heart rate 88 /min 88 /min MEDENT ([facility] Body temperature 98.1 [degF] 98.1 [degF] MEDENT ([facility] Diastolic blood pressure 80 mm[Hg] 80 mm[Hg] MEDENT ([facility] Systolic blood pressure 120 mm[Hg] 120 mm[Hg] M EDENT ([facility] Oxygen saturation in Arterial blood by Pulse oximetry 93 % 93 % MEDENT ([facility] Body mass index (BMI) [Ratio] 26.6 kg/m2 26.6 k g/m2 MEDENT ([facility] Body weight 148.00 [lb_av] 148.00 [lb_av] MEDEN T ([facility] Body height 62.50 [in_i] 62.50 [in_i] MEDENT ([facility] 5'2.50" Respiratory rate 14 /min 14 /min MEDENT ( [facility] Heart rate 82 /min 82 /min MEDENT ([facility] Body temperature 97.9 [degF] 97.9 [degF] MEDENT ([facility] Diastolic blood pressure 70 mm[Hg] 70 mm[Hg] MEDENT ([facility] Systolic blood pressure 124 mm[Hg] 124 mm[Hg] M EDENT ([facility] Oxygen saturation in Arterial blood by Pulse oximetry 97 % 97 % MEDENT ([facility] Body mass index (BMI) [Ratio] 26.1 kg/m2 26.1 k g/m2 MEDENT ([facility] Body weight 145.00 [lb_av] 145.00 [lb_av] MEDEN T ([facility] Body height 62.50 [in_i] 62.50 [in_i] MEDENT ([facility] 5'2.50" Respiratory rate 18 /min 18 /min MEDENT ( [facility] Heart rate 78 /min 78 /min MEDENT ([facility] Body temperature 97.8 [degF] 97.8 [degF] MEDENT ([facility] Diastolic blood pressure 68 mm[Hg] 68 mm[Hg] MEDENT ([facility] Systolic blood pressure 130 mm[Hg] 130 mm[Hg] [facility] Body mass index (BMI) [Ratio] 26.6 kg/m2 26.6 k g/m2 MEDENT ([facility], [facility]) Body height 63 [in_i] 63 [in_i] MEDENT ([facility]) 5'3" Body weight 150.00 [lb_av] 150.00 [lb_av] MEDEN T ([facility], [facility]) Body temperature 98.9 [degF] 98.9 [degF] MEDENT ([facility], [facility]) Oxygen saturation in Arterial blood by Pulse oximetry 92 % 92 % [facility] ([facility], [facility]) Respiratory rate 16 /min 16 /min MEDENT ( [facility], [facility]) Heart rate 84 /min 84 /min MEDENT ([facility], [facility]) Diastolic blood pressure 72 mm[Hg] 72 mm[Hg] [facility], [facility]) Systolic blood pressure 138 mm[Hg] 138 mm[Hg] [facility] ([facility], [facility]) Body weight 68.040 kg 68.040 kg MEDENT ([facility], ) Body mass index (BMI) [Ratio] 26.6 kg/m2 26.6 k g/m2 MEDENT ([facility], ) Body weight 150.00 [lb_av] 150.00 [lb_av] MEDEN T ([facility], ) Body height 63 [in_i] 63 [in_i] MEDENT ([facility], ) 5'3" Oxygen saturation in Arterial blood by Pulse oximetry 98 % 98 % MEDENT ([facility] ([place]), ([employer]) Body mass index (BMI) [Ratio] 27.4 kg/m2 27.4 k g/m2 MEDENT ([facility] Body weight 152.00 [lb_av] 152.00 [lb_av] MEDEN T ([facility] Body height 62.50 [in_i] 62.50 [in_i] MEDENT ([facility] 5'2.50" Respiratory rate 16 /min 16 /min MEDENT ( [facility] Heart rate 72 /min 72 /min MEDENT ([facility] Body temperature 98.7 [degF] 98.7 [degF] MEDENT ([facility] Diastolic blood pressure 60 mm[Hg] 60 mm[Hg] MEDENT ([facility] Systolic blood pressure 102 mm[Hg] 102 mm[Hg] M EDENT ([facility] Oxygen saturation in Arterial blood by Pulse oximetry 94 % 94 % MEDENT ([facility] Body mass index (BMI) [Ratio] 26.8 kg/m2 26.8 k g/m2 MEDENT ([facility] Body weight 149.00 [lb_av] 149.00 [lb_av] MEDEN T ([facility] Body height 62.50 [in_i] 62.50 [in_i] MEDENT ([facility] 5'2.50" Respiratory rate 18 /min 18 /min MEDENT ( [facility] Heart rate 80 /min 80 /min MEDENT ([facility] Body temperature 98.0 [degF] 98.0 [degF] MEDENT ([facility] Diastolic blood pressure 60 mm[Hg] 60 mm[Hg] MEDENT ([facility] [facility] Systolic blood pressure 116 mm[Hg] 116 mm[Hg] M [facility] ([facility] Systolic blood pressure 127 mm[Hg] 127 mm[Hg] [facility] ([facility], [facility]) Body mass index (BMI) [Ratio] 25.7 kg/m2 25.7 k g/m2 [facility] ([facility], [facility]) Body height 63 [in_i] 63 [in_i] [facility] ([facility], [facility]) 5'3" Body weight 145.00 [lb_av] 145.00 [lb_av] [facility] ([facility], [facility]) Body temperature 98.4 [degF] 98.4 [degF] [facility] ([facility]) Oxygen saturation in Arterial blood by Pulse oximetry 93 % 93 % [facility] ([facility]) Heart rate 85 /min 85 /min [facility] ([facility], [facility]) Diastolic blood pressure 78 mm[Hg] 78 mm[Hg] [facility] ([facility]) Patient Treatment Plan of Care Planned Activity Planned Date Details Description Data Source (s) Tums Ultra 1000 1000 MG 12/16/2019 01:00:00 AM EDT [facility]) Alendronate Sodium 35 MG 11/30/2019 01:00:00 AM EDT [facility]) Calcium + D3 600-800 MG-UNIT 11/30/2019 01:00:00 AM EDT [facility]) Levothyroxine Sodium 75 MCG 11/30/2019 01:00:00 AM EDT [facility]) Omeprazole 40 MG 11/30/2019 01:00:00 AM EDT [facility]) Vitamin D3 5000 UNIT 11/30/2019 01:00:00 AM EDT [facility]) Acetaminophen-Codeine 300-30 MG 11/30/2019 01:00:00 AM EDT [facility]) Tylenol Extra Strength 500 MG 11/30/2019 01:00:00 AM EDT [facility] ([facility])
[2020-04-04 19:36] LABS: HEMATOCRIT 40.8 % (36.0-47.0); HEMOGLOBIN 12.7 g/dl (12.0-15.5); MEAN CORPUSCULAR HEMOGLOBIN 32.1 pg (27.0-33.0); MEAN CORPUSCULAR HGB CONC 31.1 g/dl (32.0-36.5); PLATELET COUNT, AUTOMATED 279 10^3/uL (150-450); RED BLOOD COUNT 3.96 10^6/uL (4.00-5.40); WHITE BLOOD COUNT 14.1 10^3/uL (4.0-10.0)
[2020-04-04] MEDS ORDERED: ALEN35TA54 PO (19:43)
--- NOTE | 2020-04-04 20:01 | HPEPDOC ---
General Date of Admission Apr 04, 2020 at 19:00 Date of Service: Apr 04, 2020 Chief Complaint The patient is a 84-year-old female admitted with a reason for visit of Colles' Fracture Of Left Radius. Source: Patient History of Present Illness Mrs. Mata is an 84-year-old female history of osteopenia who presents with syncope, left Colles' fracture, and left humerus fracture. Patient was in good health prior to the syncope. She is visiting a friend. She stepped outside for smoke. She does not remember what happened next, she woke up on the ground with left upper arm pain and left wrist deformity. She says that she smokes on and off, and she recently picked up smoking again. Sometimes when she restarts smoking, she gets lightheaded. She reports lightheadedness prior to the fall, but denies any chest pain or palpitations. While in the ED, orthopedic surgery, Dr. Coon, saw evaluated the patient. He reduce the fractures and put her in a sling and cast. He recommended that we can x-ray in one week and follow up outpatient. Patient will be admitted for syncope and left forearm and radius fracture. Patient will have PT and OT on board to determine if she needs rehabilitation. Home Medications Scheduled Alendronate Sodium (Alendronate Sodium) 35 Mg Tablet, 35 MG PO QWEEK, (Reported) WEDNESDAYS Calcium Carbonate (Calcium) 600 Mg Tab, 600 MG PO DAILY, (Reported) Cholecalciferol (Vitamin D3) (Vitamin D3) 1,000 Unit Tablet, 1,000 UNITS PO DAILY, (Reported) Levothyroxine Sodium (Levothyroxine Sodium) 75 Mcg Tablet, 75 MCG PO DAILY, (Reported) Omeprazole (Omeprazole) 40 Mg Capsule.dr, 40 MG PO DAILY, (Reported) Scheduled PRN Gabapentin (Gabapentin) 400 Mg Capsule, 400 MG PO TID PRN for PAIN, (Reported) Allergies Coded Allergies: Penicillins (Verified Allergy, Intermediate, hives, 05/10/19) Past Medical History Medical History 1. Osteopenia 2. Peptic ulcer disease 3. Eczema 4. Shingles in August 2014 5. Chronic back pain 6. Hyperlipidemia Surgical History 1. Cyst on the breast removed about 20 years ago 2. Tooth extracted in February 2007 3. Heart cath in March 2007 4. Tubal ligation Family History Mother: at 74 years old, history of bladder cancer and colon cancer Daughter: at the age of 44, history of CHF Social History * Smoker: current smoker (has a smoking on and off, recently picked it up) Alcohol: Denies Drugs: denies A-FIB/CHADSVASC A-FIB History Current/History of A-Fib/PAF?: No Review of Systems Constitutional: Denies: Fever Eyes: Denies: Vision change ENT: Denies: Sore Throat Skin: Denies: Rash Pulmonary: Reports: Dyspnea (chronic) Cardiovascular: Denies: Chest Pain Gastrointestinal: Denies: Nausea, Abdominal Pain Genitourinary: Denies: Dysuria Hematologic: Denies: Bruising Musculoskeletal: Reports: Shoulder Pain (left) Neurological: Denies: Weakness Physical Examination General Exam: Positive: Alert, Cooperative Eye Exam: Positive: EOMI; Negative: Sclera icteric ENT Exam: Positive: Mucous membr. moist/pink Neck Exam: Positive: Supple Chest Exam: Positive: Clear to auscultation; Negative: Wheezing Heart Exam: Positive: Rate Normal, Regular Rhythm Abdomen Exam: Positive: Normal bowel sounds, Soft Extremity Exam: Negative: Edema Neuro Exam: Positive: Cranial Nerves 3-12 NL Psych Exam: Positive: Mental status NL, Mood NL Vital Signs Vital Signs Date Time Temp Pulse Resp B/P (MAP) Pulse Ox O2 Delivery O2 Flow Rate FiO2 04/04/20 18:53 20 04/04/20 18:46 81 169/69 (102) 95 Room Air 04/04/20 17:29 2.0 04/04/20 15:33 96.0 Laboratory Data Labs 24H Laboratory Tests 2 04/04/20 16:08: Immature Granulocyte % (Auto) 0.6, Neutrophils (%) (Auto) 76.0H, Lymphocytes (%) (Auto) 15.3L, Monocytes (%) (Auto) 5.9H, Eosinophils (%) (Auto) 1.5, Basophils (%) (Auto) 0.7, Neutrophils # (Auto) 7.6, Lymphocytes # (Auto) 1.5, Monocytes # (Auto) 0.6, Eosinophils # (Auto) 0.2, Basophils # (Auto) 0.1, Nucleated Red Blo od Cells % (auto) 0.0, Prothrombin Time 12.4, Prothromb Time International Ratio 0.90, Activated Partial Thromboplast Time 29.7, Anion Gap 2L, Glomerular Filtration Rate > 60.0, Calcium Level 9.0, Total Creatine Kinase 124, Creatine Kinase MB < 1.0, Creatine Kinase MB Relative Index 0.81, Troponin I < 0.02, Thyroid Stimulating Hormone (TSH) 9.440H 04/04/20 18:16: Coronavirus (COVID-19)(PCR) NEGATIVE, Influenza Type A (RT-PCR) NEGATIVE, Influenza Type B (RT-PCR) NEGATIVE, Respiratory Syncytial Virus (PCR) NEGATIVE 04/04/20 19:18: Nucleated Red Blood Cells % (auto) 0.0 CBC/BMP Laboratory Tests 04/04/20 16:08 04/04/20 19:18 Assessment/Plan Mrs. Mata is an 84-year-old female history of osteopenia who presents with syncope, left Colles' fracture, and left humerus fracture. Syncope will be worked up with echocardiogram and she'll be monitored on telemetry. Troponins 3 will be obtained. Orthopedic surgery following for left Colles' fracture and left humerus fracture. Recommendations appreciated. We'll have PT and OT evaluate patient to see if she needs rehabilitation. Plan / VTE VTE Prophylaxis Ordered?: Yes Plan Plan 1. Syncope We'll order echocardiogram, telemetry monitoring, and troponins 3 Orthostatic vitals in the morning Patient believes it may be secondary to restarting smoking. She may have also slipped on ice. 2. Left Colles' fracture and left humerus fracture Orthopedic surgery following, or recommendations appreciated Currently in a cast and sling We'll need repeat x-ray in one week and outpatient follow-up We'll order PT and OT to see if she needs rehabilitation Pain control with acetaminophen as needed and tramadol as needed 3. Hypothyroidism Continue levothyroxine 4. Chronic back pain Continue gabapentin Acetaminophen as needed and tramadol as needed 5. Osteopenia Continue vitamin D and calcium supplementation 6. GERD Continue omeprazole 7. DVT prophylaxis -SCDs and teds Disposition: Pending on PT and OT YONI CALDERA DO Apr 04, 2020 20:01
[2020-04-04 20:08] LABS: BLOOD UREA NITROGEN 18 MG/DL (7-18); CARBON DIOXIDE LEVEL 28 MEQ/L (21-32); CHLORIDE LEVEL 107 MEQ/L (98-107); CREATININE FOR GFR 0.61 MG/DL (0.55-1.30); FREE T3 2.1 PG/ML (2.2-4.0); FREE T4 0.89 NG/DL (0.76-1.46); GLOMERULAR FILTRATION RATE > 60.0 (>32); GLUCOSE, FASTING 102 MG/DL (70-100); POTASSIUM SERUM 3.6 MEQ/L (3.5-5.1); SODIUM LEVEL 142 MEQ/L (136-145)
[2020-04-04 22:23] VITALS: BP 142/84
[2020-04-04] MEDS: GABAPENTIN 400 MG CAP PO SCH (23:29)
[2020-04-04] MEDS: ACETAMINOPHEN TAB 650MG DOSE (2X325MG) PO PRN (23:30)
[2020-04-05 06:00] VITALS: BP 155/79
[2020-04-05] MEDS: LEVOTHYROXINE 75MCG TABLET (0.075MG) PO SCH (06:07)
[2020-04-05] MEDS: ACETAMINOPHEN TAB 650MG DOSE (2X325MG) PO PRN (06:07)
[2020-04-05 06:26] LABS: HEMATOCRIT 37.6 % (36.0-47.0); HEMOGLOBIN 12.2 g/dl (12.0-15.5); MEAN CORPUSCULAR HEMOGLOBIN 32.9 pg (27.0-33.0); MEAN CORPUSCULAR HGB CONC 32.4 g/dl (32.0-36.5); MEAN CORPUSCULAR VOLUME 101.3 fl (80.0-96.0); PLATELET COUNT, AUTOMATED 257 10^3/uL (150-450); RED BLOOD COUNT 3.71 10^6/uL (4.00-5.40); WHITE BLOOD COUNT 9.5 10^3/uL (4.0-10.0)
[2020-04-05 07:04] LABS: BLOOD UREA NITROGEN 18 MG/DL (7-18); CALCIUM LEVEL 8.4 MG/DL (8.8-10.2); CARBON DIOXIDE LEVEL 29 MEQ/L (21-32); CHLORIDE LEVEL 107 MEQ/L (98-107); CREATININE FOR GFR 0.59 MG/DL (0.55-1.30); GLOMERULAR FILTRATION RATE > 60.0 (>32); GLUCOSE, FASTING 92 MG/DL (70-100); POTASSIUM SERUM 4.2 MEQ/L (3.5-5.1); SODIUM LEVEL 140 MEQ/L (136-145); TROPONIN I < 0.02 NG/ML (< 0.10)
[2020-04-05] MEDS: traMADol 50 MG TAB PO PRN ×3 (07:07→20:43)
--- NOTE | 2020-04-05 09:38 | CR ---
CONSULTATION DATE: 04/04/2020 CHIEF COMPLAINT: Left distal radius fracture and left proximal humerus fracture. HISTORY OF PRESENT ILLNESS: This 84-year-old female was seen today in the emergency department at [facility]. She had a fall on her patio. She slipped on ice. She was trying to quit smoking, but she had a relapse, and she was going out for a cigarette. She is right hand dominant. No prior history of pain or problems with the upper extremities. PAST MEDICAL HISTORY: Nil. MEDICATIONS: None. ALLERGIES: PENICILLIN. PAST SURGICAL HISTORY: Not recorded. SOCIAL HISTORY: She lives alone in an apartment. She is right hand dominant. She is trying to quit smoking. PHYSICAL EXAMINATION: Well-appearing 84-year-old female. Vital signs are stable. She is alert and oriented x3. She responds appropriately to questioning. She has pain about the left proximal humerus, as well as the left distal radius. There is no obvious deformity today of the upper extremities aside from the distal radius, where she has a dinner fork type deformity. This is a closed injury. She has pain to the proximal humerus, but normal sensation overlying the axillary nerve. She has normal sensation and motor function to MRU and AIN/PIN on the left upper extremity. Hand is warm and well-perfused. Strong radial pulse. No pain of the elbow. Forearm compartments are soft. IMAGING STUDIES: Radiographs are reviewed of the left humerus and shoulder. This shows a proximal humerus fracture. Although none of the fragments are displaced or angulated enough to quality of parts for the Neer classification, this does appear to be a three-part fracture overall. It appears overall well-aligned with no significant displacement of any of the parts. Radiographs reviewed of the left wrist. She has a severely dorsally angulated displaced fracture of the distal radius. ASSESSMENT AND PLAN: This 84-year-old has a well-aligned proximal humerus fracture on the same side of a dorsally angulated displaced distal radius fracture. I recommend conservative management for the proximal humerus fracture and the forearm in a sling. In terms of the distal radius fracture, I recommend closed reduction and casting with cast application six weeks, repeat radiographs every week for the first three weeks, and follow-up in clinic in one week's time. We performed closed reduction and casting under conscious sedation with acceptable alignment on the post-procedure radiographs. She was neurovascularly intact afterwards, and I would like to follow her up in clinic one week's time. She is being admitted to the hospital and I will follow her intermittently. PROCEDURE NOTE: I talked to her about the pros, cons, risks, and benefits of going ahead with closed reduction and casting of the left distal radius fracture. The specific risks included, but were not limited to pain, stiffness, failure to achieve or maintain a closed reduction, need for further procedures or surgeries, as well as cast irrigation, cast mcclure, and other risks not listed. She signed the consent form. The QNP communications clerk performed a conscious sedation. We did perform the preprocedure time-out to confirm the patient, the site, and the planned procedure. Once the patient received their conscious sedation, I performed a gentle longitudinal traction and recreation of the deformity followed by straightening and direct manipulation of the fracture site to perform a closed reduction. I placed a below-elbow circumferential plaster of Patti cast, well-padded. I performed gentle three-point molding with two points dorsally. I took AP and lateral radiographs to confirm proper reduction and save these onto the system. The cast was allowed to fully harden and neurovascular status checked after the procedure was performed.
[2020-04-05] MEDS: OMEPRAZOLE 20 MG CAP PO SCH (10:26)
[2020-04-05] MEDS: VITAMIN D 1,000 INTERNATIONAL UNITS TABLET PO SCH (10:26)
[2020-04-05] MEDS: CALCIUM CARBONATE 500 MG CHEW U/D PO SCH (10:26)
[2020-04-05] MEDS: GABAPENTIN 400 MG CAP PO SCH ×3 (10:26→20:43)
[2020-04-05 14:00] VITALS: BP 123/68
--- NOTE | 2020-04-05 14:21 | IPN ---
PROGRESS NOTE DATE: 04/05/2020 CHIEF COMPLAINT: Post admission day #1 left distal radius postreduction casting and left proximal humerus fracture, nonoperative conservative management. HISTORY OF PRESENT ILLNESS: This 84-year-old female had a syncopal episode, ground-level fall. Complaining of both pain and swelling of her hand. I saw and assessed her on the yap, [facility]. PHYSICAL EXAMINATION: This is an 84-year-old female. She has her left wrist elevated appropriately with an ice pack in place. There has been some interim swelling moderately in the hand and fingers. She is able to wiggle her fingers. Capillary refill over 3 seconds, though warm and well perfused. She does complain of pins and needles sensation in the fingers and some pain on flexion in the humerus. No pain on passive stretch of the digits. ASSESSMENT AND PLAN: This 84-year-old female is post admission day #1 from closed reduction, casting, left distal radius fracture. She has had some interim swelling. This is to be expected given the injury. If she continues to experience pain and diminished sensation one could consider bivalving the cast. At this point she needs a trial of conservative management with anti-inflammatories, rest, ice, and elevation to try and get the expected swelling down.
--- NOTE | 2020-04-05 15:50 | IPNPDOC ---
Subjective Date Seen The patient was seen on 04/05/20. Subjective Chief Complaint/HPI Mrs. Mata is an 84-year-old female history of osteopenia who presents with syncope, left Colles' fracture, and left humerus fracture. No events on tele overnight. This morning, there was swelling and pain from the cast. Orthopedics evaluated, the swelling and pain is to be expected. Otherwise, no events on tele and patient denies any lightheadedness/dizziness, chest pain, or worsening dyspnea. Objective Physical Examination General Exam: Positive: Alert, Cooperative Eye Exam: Positive: EOMI; Negative: Sclera icteric ENT Exam: Positive: Mucous membr. moist/pink Neck Exam: Positive: Supple Chest Exam: Positive: Clear to auscultation; Negative: Wheezing Heart Exam: Positive: Rate Normal, Regular Rhythm Abdomen Exam: Positive: Normal bowel sounds, Soft Extremity Exam: Negative: Edema Neuro Exam: Positive: Cranial Nerves 3-12 NL Psych Exam: Positive: Mental status NL, Mood NL Assessment /Plan Assessment Mrs. Mata is an 84-year-old female history of osteopenia who presents with syncope, left Colles' fracture, and left humerus fracture. Syncope will be worked up with echocardiogram and she'll be monitored on telemetry. No events on tele and Troponins x3 were negative. Pending results from echocardiogram. Otherwise, orthopedic surgery following for left Colles' fracture and left humerus fracture. Recommendations appreciated. We'll have PT and OT evaluate patient to see if she needs rehabilitation. Plan/VTE VTE Prophylaxis Ordered?: Yes Plan 1. Syncope We'll order echocardiogram, telemetry monitoring, and troponins 3 -No events on Tele and troponins negative x3. Pending echocardiogram results Patient believes it may be secondary to restarting smoking. She may have also slipped on ice. 2. Left Colles' fracture and left humerus fracture Orthopedic surgery following, or recommendations appreciated Currently in a cast and sling We'll need repeat x-ray in one week and outpatient follow-up We'll order PT and OT to see if she needs rehabilitation Pain control with acetaminophen as needed and tramadol as needed 3. Hypothyroidism Continue levothyroxine 4. Chronic back pain Continue gabapentin Acetaminophen as needed and tramadol as needed 5. Osteopenia Continue vitamin D and calcium supplementation 6. GERD Continue omeprazole 7. DVT prophylaxis -SCDs and teds Disposition: Pending on PT and OT recommendations for safe discharge VS, I&O, 24H, Fara Vital Signs/I&O Vital Signs Date Time Temp Pulse Resp B/P (MAP) Pulse Ox O2 Delivery O2 Flow Rate FiO2 04/05/20 14:06 20 Room Air 04/05/20 07:07 95 04/05/20 06:00 98.5 76 155/79 (104) 04/04/20 17:29 2.0 I&O- Last 24 Hours up to 6 AM 04/05/20 06:00 Intake Total 1200 ml Output Total 600 ml Balance 600 ml Laboratory Data 24H LABS Laboratory Tests 2 04/04/20 16:08: Immature Granulocyte % (Auto) 0.6, Neutrophils (%) (Auto) 76.0H, Lymphocytes (%) (Auto) 15.3L, Monocytes (%) (Auto) 5.9H, Eosinophils (%) (Auto) 1.5, Basophils (%) (Auto) 0.7, Neutrophils # (Auto) 7.6, Lymphocytes # (Auto) 1.5, Monocytes # (Auto) 0.6, Eosinophils # (Auto) 0.2, Basophils # (Auto) 0.1, Nucleated Red Blood Cells % (auto) 0.0, Prothrombin Time 12.4, Prothromb Time International Ratio 0.90, Activated Partial Thromboplast Time 29.7, Anion Gap 2L, Glomerular Filtration Rate > 60.0, Calcium Level 9.0, Total Creatine Kinase 124, Creatine K inase MB < 1.0, Creatine Kinase MB Relative Index 0.81, Troponin I < 0.02, Thyroid Stimulating Hormone (TSH) 9.440H 04/04/20 18:16: Coronavirus (COVID-19)(PCR) NEGATIVE, Influenza Type A (RT-PCR) NEGATIVE, Influenza Type B (RT-PCR) NEGATIVE, Respiratory Syncytial Virus (PCR) NEGATIVE 04/04/20 19:18: Nucleated Red Blood Cells % (auto) 0.0, Anion Gap 7L, Glomerular Filtration Rate > 60.0, Calcium Level 8.0L, Free Thyroxine 0.89, Free Triiodothyronine 2.1L 04/04/20 22:06: Troponin I < 0.02 04/05/20 05:59: Nucleated Red Blood Cells % (auto) 0.0, Anion Gap 4L, Glomerular Filtration Rate > 60.0, Calcium Level 8.4L, Troponin I < 0.02 CBC/BMP Laboratory Tests 04/04/20 16:08 04/04/20 19:18 04/05/20 05:59 YONI CALDERA DO Apr 05, 2020 15:50
[2020-04-05 18:00] VITALS: BP_SYST 124; BP_SYST 139; BP_SYST 92; BP_DIAS 63; BP_DIAS 68; BP_DIAS 84
[2020-04-05] MEDS: NS 1,000 ML IV SCH (18:47)
[2020-04-05 22:00] VITALS: BP 165/82
[2020-04-06] MEDS: LEVOTHYROXINE 75MCG TABLET (0.075MG) PO SCH (05:30)
[2020-04-06] MEDS: traMADol 50 MG TAB PO PRN (05:31)
[2020-04-06 06:00] VITALS: BP 157/87
[2020-04-06 06:21] LABS: HEMATOCRIT 35.1 % (36.0-47.0); HEMOGLOBIN 11.4 g/dl (12.0-15.5); MEAN CORPUSCULAR HEMOGLOBIN 32.9 pg (27.0-33.0); MEAN CORPUSCULAR HGB CONC 32.5 g/dl (32.0-36.5); MEAN CORPUSCULAR VOLUME 101.4 fl (80.0-96.0); PLATELET COUNT, AUTOMATED 232 10^3/uL (150-450); RED BLOOD COUNT 3.46 10^6/uL (4.00-5.40); WHITE BLOOD COUNT 9.9 10^3/uL (4.0-10.0)
[2020-04-06] MEDS: NS 1,000 ML IV SCH ×2 (06:28→18:29)
[2020-04-06 06:51] LABS: BLOOD UREA NITROGEN 18 MG/DL (7-18); CALCIUM LEVEL 8.1 MG/DL (8.8-10.2); CARBON DIOXIDE LEVEL 29 MEQ/L (21-32); CHLORIDE LEVEL 107 MEQ/L (98-107); CREATININE FOR GFR 0.53 MG/DL (0.55-1.30); GLOMERULAR FILTRATION RATE > 60.0 (>32); GLUCOSE, FASTING 90 MG/DL (70-100); POTASSIUM SERUM 3.9 MEQ/L (3.5-5.1); SODIUM LEVEL 139 MEQ/L (136-145)
[2020-04-06] MEDS: CALCIUM CARBONATE 500 MG CHEW U/D PO SCH ×2 (09:00→09:09)
[2020-04-06] MEDS: OMEPRAZOLE 20 MG CAP PO SCH (09:09)
[2020-04-06] MEDS: GABAPENTIN 400 MG CAP PO SCH ×3 (09:09→20:01)
[2020-04-06] MEDS: VITAMIN D 1,000 INTERNATIONAL UNITS TABLET PO SCH (09:09)
[2020-04-06 10:00] VITALS: BP_SYST 107; BP_SYST 88; BP_DIAS 49; BP_DIAS 66
--- NOTE | 2020-04-06 11:08 | ECHO ---
DATE OF PROCEDURE: 04/05/2020 Age: 84 Gender: Female Height: 63 inches Weight: 130 pounds Body surface area: 1.61 m2 PATIENT LOCATION: Inpatient [address] [place] [address], Room 4224. REFERRING PHYSICIAN: Rachid Dumont DO INDICATION: Syncope. MEASUREMENTS: 2D Measurements: RV 3.7 cm LV 4.0 cm Septum 1.2 cm Posterior wall 1.2 cm Aortic Root 3.7 cm LA 4.4 cm LVEF 55% Doppler Measurements: AV 1.52 m/s LVOT 1.05 m/s LVOT diameter 1.8 cm MV-E 69, A 102, E/A ratio 0.7 Early mitral deceleration time 177 msec E prime medial 7.1, A prime medial 7.3, E prime lateral 7.7 PV 0.8 m/s Pulmonary artery acceleration time 111 msec RVSP 34 mmHg IVC 1.7 cm COMMENTS: Normal sinus rhythm with left bundle branch block. Somewhat technically challenging study in light of the patients body habitus, but diagnostically useful information was still obtained. M-mode and two-dimensional echocardiography was performed with pulse, continuous wave, color flow, and tissue Doppler studies. Borderline left ventricular hypertrophy with paradoxical septal wall motion related to left bundle branch block, yet preserved global resting systolic function. Mildly dilated left atrium with grade 1 left ventricular diastolic dysfunction, but currently normal estimated mean left atrial pressure. Normal right heart chamber sizes and motion with Doppler evidence of mild pulmonary hypertension. Normal IVC size and collapse against an elevated central venous pressure. Normal aortic dimensions. Subtle aortic valvular sclerosis without functional abnormality. Normal appearing mitral valve apparatus with trace insufficiency (physiologic). Normal appearing tricuspid valve with trace insufficiency (physiologic). No apparent intracardiac mass or pericardial effusion. MTDD
[2020-04-06] MEDS: ACETAMINOPHEN TAB 650MG DOSE (2X325MG) PO PRN ×2 (12:33→20:02)
[2020-04-06 14:00] VITALS: BP 177/69
[2020-04-06 17:51] VITALS: BP 146/74
--- NOTE | 2020-04-06 20:57 | IPNPDOC ---
Subjective Date Seen The patient was seen on 04/06/20. Subjective Chief Complaint/HPI Mrs. Mata is an 84-year-old female history of osteopenia who presents with syncope, left Colles' fracture, and left humerus fracture. Denies chest pain or worsening dyspnea. She reports distress about going home as it is difficult to care for ADLs with her arm in a cast and sling Objective Physical Examination General Exam: Positive: Alert, Cooperative Eye Exam: Positive: EOMI; Negative: Sclera icteric ENT Exam: Positive: Mucous membr. moist/pink Neck Exam: Positive: Supple Chest Exam: Positive: Clear to auscultation; Negative: Wheezing Heart Exam: Positive: Rate Normal, Regular Rhythm Abdomen Exam: Positive: Normal bowel sounds, Soft Extremity Exam: Negative: Edema Neuro Exam: Positive: Cranial Nerves 3-12 NL Psych Exam: Positive: Mental status NL, Mood NL Assessment /Plan Assessment Mrs. Mata is an 84-year-old female history of osteopenia who presents with syncope, left Colles' fracture, and left humerus fracture. Syncope will be worked up with echocardiogram and she'll be monitored on telemetry. No events on tele and Troponins x3 were negative. Pending results from echocardiogram. Otherwise, orthopedic surgery following for left Colles' fracture and left humerus fracture. Recommendations appreciated. PT/OT following, recommendations appreciated Plan/VTE VTE Prophylaxis Ordered?: Yes Plan 1. Syncope We'll order echocardiogram, telemetry monitoring, and troponins 3 -No events on Tele and troponins negative x3. Pending echocardiogram results Patient believes it may be secondary to restarting smoking. She may have also slipped on ice. 2. Left Colles' fracture and left humerus fracture Orthopedic surgery following, or recommendations appreciated Currently in a cast and sling We'll need repeat x-ray in one week and outpatient follow-up We'll order PT and OT to see if she needs rehabilitation Pain control with acetaminophen as needed and tramadol as needed 3. Hypothyroidism Continue levothyroxine 4. Chronic back pain Continue gabapentin Acetaminophen as needed and tramadol as needed 5. Osteopenia Continue vitamin D and calcium supplementation 6. GERD Continue omeprazole 7. DVT prophylaxis -SCDs and teds Disposition: PT/OT recommendations appreciated, may need rehab VS, I&O, 24H, Fishbone Vital Signs/I&O Vital Signs Date Time Temp Pulse Resp B/P (MAP) Pulse Ox O2 Delivery O2 Flow Rate FiO2 04/06/20 17:51 146/74 (98) 04/06/20 14:00 98.0 82 16 93 Room Air 04/04/20 17:29 2.0 I&O- Last 24 Hours up to 6 AM 04/06/20 05:59 Intake Total 856 ml Output Total 300 ml Balance 556 ml Laboratory Data 24H LABS Laboratory Tests 2 04/06/20 06:05: Nucleated Red Blood Cells % (auto) 0.0, Anion Gap 3L, Glomerular Filtration Rate > 60.0, Calcium Level 8.1L CBC/BMP Laboratory Tests 04/06/20 06:05 YONI CALDERA DO Apr 06, 2020 20:56
[2020-04-06 22:00] VITALS: BP 150/81
[2020-04-07] MEDS: ACETAMINOPHEN TAB 650MG DOSE (2X325MG) PO PRN (04:20)
[2020-04-07] MEDS: NS 1,000 ML IV SCH (05:40)
[2020-04-07] MEDS: LEVOTHYROXINE 75MCG TABLET (0.075MG) PO SCH (05:40)
[2020-04-07 06:00] VITALS: BP 162/84
[2020-04-07] MEDS ORDERED: TRAM50TA2 PO (07:24)
[2020-04-07] MEDS ORDERED: ACET1TAB55 PO (07:24)
[2020-04-07] MEDS ORDERED: MOM 30ML SUSPENSION UDC PO ONE (07:30)
[2020-04-07] MEDS: CALCIUM CARBONATE 500 MG CHEW U/D PO SCH (08:06)
[2020-04-07] MEDS: GABAPENTIN 400 MG CAP PO SCH ×2 (08:06→08:10)
[2020-04-07] MEDS: OMEPRAZOLE 20 MG CAP PO SCH (08:06)
[2020-04-07] MEDS: VITAMIN D 1,000 INTERNATIONAL UNITS TABLET PO SCH (08:06)
[2020-04-07 08:18] LABS: HEMATOCRIT 35.6 % (36.0-47.0); HEMOGLOBIN 11.3 g/dl (12.0-15.5); MEAN CORPUSCULAR HEMOGLOBIN 32.3 pg (27.0-33.0); MEAN CORPUSCULAR HGB CONC 31.7 g/dl (32.0-36.5); MEAN CORPUSCULAR VOLUME 101.7 fl (80.0-96.0); PLATELET COUNT, AUTOMATED 250 10^3/uL (150-450); WHITE BLOOD COUNT 8.8 10^3/uL (4.0-10.0)
[2020-04-07 08:47] LABS: BLOOD UREA NITROGEN 11 MG/DL (7-18); CARBON DIOXIDE LEVEL 27 MEQ/L (21-32); CHLORIDE LEVEL 108 MEQ/L (98-107); CREATININE FOR GFR 0.52 MG/DL (0.55-1.30); GLOMERULAR FILTRATION RATE > 60.0 (>32); GLUCOSE, FASTING 103 MG/DL (70-100); POTASSIUM SERUM 3.8 MEQ/L (3.5-5.1); SODIUM LEVEL 142 MEQ/L (136-145)
[2020-04-07] MEDS ORDERED: LACTULOSE 20 GM/30 ML SYRUP UD PO ONE (11:30)
[2020-04-07 11:44] VITALS: BP_SYST 153; BP_SYST 155; BP_SYST 165; BP_DIAS 84; BP_DIAS 85
--- NOTE | 2020-04-07 21:59 | DS.PDOC ---
Discharge Summary General Date of Admission Apr 04, 2020 at 19:00 Date of Discharge Apr 07, 2020 Attending Physician: YONI CALDERA DO Specialist/Consultants Involve Orthopedic surgery, Dr. Coon Discharge Summary PROCEDURES PERFORMED DURING STAY: None ADMITTING DIAGNOSES: 1. Syncope 2. Left Colles' fracture 3. Left humerus fracture 4. Hypothyroidism 5. Chronic back pain 6. Osteopenia 7. GERD DISCHARGE DIAGNOSES: 1. Syncope 2/2 orthostatic hypotension 2. Left Colles' fracture 3. Left humerus fracture 4. Hypothyroidism 5. Chronic back pain 6. Osteopenia 7. GERD COMPLICATIONS/CHIEF COMPLAINT: Colles' Fracture Of Left Radius. HISTORY OF PRESENT ILLNESS: Mrs. Mata is an 84-year-old female history of osteopenia who presents with syncope, left Colles' fracture, and left humerus fracture. Patient was in good health prior to the syncope. She is visiting a friend. She stepped outside for smoke. She does not remember what happened next, she woke up on the ground with left upper arm pain and left wrist deformity. She says that she smokes on and off, and she recently picked up smoking again. Sometimes when she restarts smoking, she gets lightheaded. She reports lightheadedness prior to the fall, but denies any chest pain or palpitations. While in the ED, orthopedic surgery, Dr. Coon, saw evaluated the patient. He reduce the fractures and put her in a sling and cast. He recommended that we can x-ray in one week and follow up outpatient. Patient will be admitted for syncope and left forearm and radius fracture. Patient will have PT and OT on board to determine if she needs rehabilitation. HOSPITAL COURSE: During her hospitalization, there was no events on telemetry and echocardiogram did not reveal a cause to syncope, but she was found to have orthostatic hypotension. On 04/05/2020, Supine 139/84, Sitting 124/68, Standing 92/63. This may have been the cause of her syncope. She was given fluid for orthostatic hypotension. Today, her orthostatic hypotension resolved. She felt well. She denies any lightheadedness, chest pain, or dyspnea. She felt ready to go to rehab and was subsequently discharged to rehab DISCHARGE MEDICATIONS: Please see below. ALLERGIES: Please see below. PHYSICAL EXAMINATION ON DISCHARGE: VITAL SIGNS: Please see below. GENERAL: Comfortable, in no apparent distress HEENT: Head normocephalic, atraumatic NECK: Supple CARDIOVASCULAR EXAMINATION: Regular rate and rhythm RESPIRATORY EXAMINATION: Lungs clear to auscultation bilaterally ABDOMINAL EXAMINATION: Soft, non-tender, normal bowel sounds EXTREMITIES: Mild pitting edema bilaterally, left arm in sling SKIN: Warm and dry NEUROLOGICAL EXAMINATION: CN 3-12 grossly intact PSYCHIATRIC EXAMINATION: Normal mood and affect LABORATORY DATA: Please see below. IMAGING: (radiologist impression) Left Wrist XR There is a comminuted distal radial fracture with dorsal angulation and dorsal displacement. There is a concomitant distal ulnar fracture involving the ulnar styloid. Left Humerus XR Proximal humeral fracture Head CT 1. There is chronic microvascular disease. 2. No acute intracranial lesion or injury and no change from prior scan. Left Elbow XR There is no acute fracture, dislocation, subluxation, or joint effusion. CXR Mild cardiomegaly without evidence of acute cardiopulmonary disease. Cervical Spine CT 1. No fracture of the cervical spine. 2. Severe T4 and minimal compression fractures, probably chronic. PROGNOSIS: Good ACTIVITY: As tolerated. DIET: As tolerated DISCHARGE PLAN: Rehab at [facility] DISPOSITION: Merged With [facility]. DISCHARGE INSTRUCTIONS: 1. Follow up with physician at [facility] 2. Follow up with orthopedic surgery in 1 week with Xray of wrist DISCHARGE CONDITION: Stable Total time spent on discharge planning, discharge summary, and medication reconciliation: 45 minutes Vital Signs/I&Os Vital Signs Date Time Temp Pulse Resp B/P (MAP) Pulse Ox O2 Delivery O2 Flow Rate FiO2 04/07/20 11:44 112 165/85 (111) 108 153/84 (107) 81 155/84 (107) 04/07/20 06:00 97.3 18 95 04/06/20 14:00 Room Air 04/04/20 17:29 2.0 I&O- Last 24 Hours up to 6 AM 04/07/20 06:00 Intake Total 2820 ml Output Total 2625 ml Balance 195 ml Laboratory Data Labs 24H Laboratory Tests 2 04/07/20 07:14: Nucleated Red Blood Cells % (auto) 0.0, Anion Gap 7L, Glomerular Filtration Rate > 60.0, Calcium Level 8.0L CBC/BMP Laboratory Tests 04/07/20 07:14 Microbiology Microbiology 04/07/20 Respiratory Virus Panel (PCR) ([facility]) - Final, Complete Discharge Medications Scheduled Alendronate Sodium (Alendronate Sodium) 35 Mg Tablet, 35 MG PO QWEEK, (Reported) WEDNESDAYS Calcium Carbonate (Calcium) 600 Mg Tab, 600 MG PO DAILY, (Reported) Cholecalciferol (Vitamin D3) (Vitamin D3) 1,000 Unit Tablet, 1,000 UNITS PO DAILY, (Reported) Levothyroxine Sodium (Levothyroxine Sodium) 75 Mcg Tablet, 75 MCG PO DAILY, (Reported) Omeprazole (Omeprazole) 40 Mg Capsule.dr, 40 MG PO DAILY, (Reported) Scheduled PRN Acetaminophen (Acetaminophen) 325 Mg Tablet, 650 MG PO Q6HP PRN for pain Gabapentin (Gabapentin) 400 Mg Capsule, 400 MG PO TID PRN for PAIN, (Reported) Tramadol HCl (Tramadol HCl) 50 Mg Tablet, 50 MG PO Q6HP PRN for pain not controlled by Tylenol Allergies Coded Allergies: Penicillins (Verified Allergy, Intermediate, hives, 05/10/19) YONI CALDERA DO Apr 07, 2020 21:53
== END 2020-04-07 13:26 | DRG 563 ==
LOC: M ED 15:21 → M ED INP 19:00 → M MSPAV 22:20
PROVIDERS: ADMIT Internal Medicine; ATTEND Internal Medicine
PROC: 0PSJXZZ Reposition Left Radius, External Approach (ICD-10-PCS; principal; 2020-04-04)
DX: S52.532A Colles' fracture of left radius, initial encounter for closed fracture (principal); Y92.038 Other place in apartment as the place of occurrence of the external cause; Y99.8 Other external cause status; Y93.89 Activity, other specified; M54.9 Dorsalgia, unspecified; E78.5 Hyperlipidemia, unspecified; E03.9 Hypothyroidism, unspecified; F17.210 Nicotine dependence, cigarettes, uncomplicated; M85.80 Other specified disorders of bone density and structure, unspecified site; Z79.899 Other long term (current) drug therapy; Z88.0 Allergy status to penicillin; W00.0XXA Fall on same level due to ice and snow, initial encounter; Z11.52 Encounter for screening for COVID-19; I95.1 Orthostatic hypotension

== ENCOUNTER → 2020-04-11 | Outpatient (REF) | LOC: SKLAB2 07:00 | PROVIDERS: ATTEND Internal Medicine | DX: E55.9 Vitamin D deficiency, unspecified (principal) ==

== ENCOUNTER → 2020-04-12 | Outpatient (REF) | LOC: SKLAB2 07:00 | PROVIDERS: ATTEND Internal Medicine | DX: Z20.822 Contact with and (suspected) exposure to COVID-19 (principal) ==

== ENCOUNTER → 2020-04-19 | Outpatient (REF) | LOC: SKLAB5 06:40 | PROVIDERS: ATTEND Internal Medicine | DX: Z20.822 Contact with and (suspected) exposure to COVID-19 (principal) ==

== ENCOUNTER → 2020-04-24 | Outpatient (CLI) | payer MEDICARE, MEDICAID ==
--- NOTE | 2020-04-24 10:56 | REP ---
INDICATION: FALL. COMPARISON: None. TECHNIQUE: AP and lateral views of the left wrist FINDINGS: Evaluation is limited by overlying cast material. Underlying fracture through the distal radial metaphysis noted. IMPRESSION: Limited examination. Distal radial metaphyseal fracture. <Electronically signed by Chandrakant Palmer > 04/24/20 1059
--- NOTE | 2020-04-24 10:58 | REP ---
INDICATION: FALL. COMPARISON: None. TECHNIQUE: Internal rotation, external rotation, Y-view and axillary views of the left shoulder. FINDINGS: Osteopenia and significant arthritic changes are identified including cortical irregularity and bulky spurring along the inferior margin of the humeral head/neck. Subtle fracture through the humeral neck cannot be excluded. IMPRESSION: Cannot exclude nondisplaced fracture through the proximal humeral neck. Evaluation is limited by osteopenia and degenerative changes. <Electronically signed by Chadnrakant Palmer > 04/24/20 1052
--- NOTE | 2020-05-16 13:18 | REP ---
INDICATION: A. COMPARISON: Comparison study April 24, 2020.. TECHNIQUE: Four views of the left shoulder are provided. FINDINGS: Four views of the left shoulder including axillary Y and tangential scapular as well as frontal views demonstrate a healing impacted surgical neck fracture with apex lateral angulation. On the frontal view, there appears to be more impaction. Otherwise unchanged in position. There is diffuse osteopenia. IMPRESSION: Impacted surgical neck fracture left proximal humerus. <Electronically signed by Alfonso Claudio > 05/16/20 1036
--- NOTE | 2020-05-16 13:42 | REP ---
INDICATION: A. Follow-up left wrist fracture. COMPARISON: Comparison study December 22, 2020.. TECHNIQUE: AP and lateral views. FINDINGS: There is an impacted healing fracture of the distal radial metaphysis which appears essentially unchanged in position. There is an associated nonunited ulnar styloid fracture. There is diffuse osteopenia. Osteoarthritis is seen at the navicular 0 multangular articulation and at the 1st carpometacarpal joint. IMPRESSION: Healing distal radial and ulnar styloid fractures. <Electronically signed by Alfonso Claudio > 05/16/20 1310
== END ==
LOC: M SOG 11:21
PROVIDERS: ATTEND Orthopaedic Surgery Sports Medicine
DX: S52.592D Other fractures of lower end of left radius, subsequent encounter for closed fracture with routine healing (principal); S42.202D Unspecified fracture of upper end of left humerus, subsequent encounter for fracture with routine healing; X58.XXXD Exposure to other specified factors, subsequent encounter

== ENCOUNTER → 2020-04-26 | Outpatient (REF) | LOC: SKLAB5 07:32 | PROVIDERS: ATTEND Internal Medicine | DX: Z20.822 Contact with and (suspected) exposure to COVID-19 (principal) ==

== ENCOUNTER → 2020-05-16 | Outpatient (CLI) | payer MEDICARE, MEDICAID | LOC: M SOG 10:28 | PROVIDERS: ATTEND Orthopaedic Surgery Sports Medicine | DX: S42.202D Unspecified fracture of upper end of left humerus, subsequent encounter for fracture with routine healing (principal); S52.592D Other fractures of lower end of left radius, subsequent encounter for closed fracture with routine healing; X58.XXXD Exposure to other specified factors, subsequent encounter ==

== ENCOUNTER → 2020-06-27 | Outpatient (CLI) | payer MEDICARE, MEDICAID ==
--- NOTE | 2020-06-27 11:14 | REP ---
INDICATION: F/U FX. COMPARISON: 05/16/2020 TECHNIQUE: AP and lateral views of the left wrist FINDINGS: Colles' fracture of the distal radius with posterior angulation is again noted with suggestions for callus formation and healing. Unfused ulnar styloid fracture also identified and similar to prior examination. Remainder of the examination demonstrates generalized age-related osteopenia and degenerative changes. IMPRESSION: Healing distal radial metaphyseal fracture and ulnar styloid fracture again noted. <Electronically signed by Chandrakant Palmer > 06/27/20 [id number]
--- NOTE | 2020-06-27 11:16 | REP ---
INDICATION: F/U FX. COMPARISON: 05/16/2020 TECHNIQUE: Internal rotation, external rotation, axillary and Y-view of the left shoulder FINDINGS: Humeral head/neck fracture again identified and similar to prior examination. Previously noted acute fracture lines appear somewhat washed out suggesting callus formation and subtle early healing. IMPRESSION: Proximal humeral fracture unchanged in position from prior examination. Subtle callus formation suggests healing. <Electronically signed by Chandrakant Palmer > 06/27/20 [id number]
== END ==
LOC: M SOG 10:38
PROVIDERS: ATTEND Orthopaedic Surgery Sports Medicine
DX: S42.202D Unspecified fracture of upper end of left humerus, subsequent encounter for fracture with routine healing (principal); S52.592D Other fractures of lower end of left radius, subsequent encounter for closed fracture with routine healing; Y92.9 Unspecified place or not applicable; Y93.9 Activity, unspecified; Y99.9 Unspecified external cause status

== ENCOUNTER 2020-08-01 09:37 | Emergency (ER) | payer MEDICARE, MEDICAID ==
[~2020-08-01] VITALS: Ht 160 cm; Wt 68.2 kg
[~2020-08-01 09:37] MED LIST changes: +GABA-283 PO; -GABA-845 PO
--- NOTE | 2020-08-01 10:39 | REP ---
INDICATION: CHEST PAIN. COMPARISON: 04/04/2020. TECHNIQUE: Single portable AP view of the chest was performed. FINDINGS: There is no acute infiltrate. Cardiac silhouette is mildly prominent, unchanged. There is calcification of the thoracic aorta. The mediastinal silhouette is unchanged. Prior fracture proximal left humerus again noted. IMPRESSION: No acute pulmonary disease. <Electronically signed by João Amaya > 08/01/20 [id number]
[2020-08-01] MEDS ORDERED: NS 500 ML IV ONE (10:55)
[2020-08-01 10:56] LABS: BASO # 0.1 10^3/uL (0.0-0.2); BASO % 0.6 % (0.0-1.0); EOS # 0.2 10^3/uL (0.0-0.5); EOS % 2.6 % (0.0-3.0); HEMATOCRIT 39.6 % (36.0-47.0); HEMOGLOBIN 13.2 g/dl (12.0-15.5); LYMPH # 1.5 10^3/uL (1.5-5.0); LYMPH % 17.1 % (24.0-44.0); MEAN CORPUSCULAR HEMOGLOBIN 32.3 pg (27.0-33.0); MEAN CORPUSCULAR HGB CONC 33.3 g/dl (32.0-36.5); MEAN CORPUSCULAR VOLUME 96.8 fl (80.0-96.0); MONO # 0.7 10^3/uL (0.0-0.8); MONO % 7.6 % (2.0-8.0); NEUTROPHILS # 6.4 10^3/uL (1.5-8.5); NEUTROPHILS % 71.8 % (36.0-66.0); PLATELET COUNT, AUTOMATED 277 10^3/uL (150-450); RED BLOOD COUNT 4.09 10^6/uL (4.00-5.40); WHITE BLOOD COUNT 8.9 10^3/uL (4.0-10.0)
[2020-08-01] MEDS: METOPROLOL 5 MG/5 ML VIAL IV SCH ×3 (10:57→11:14)
[2020-08-01 11:16] LABS: INR 0.99; PROTHROMBIN TIME 13.3 SECONDS (12.5-14.3)
[2020-08-01 11:23] LABS: BLOOD UREA NITROGEN 18 MG/DL (7-18); CALCIUM LEVEL 8.9 MG/DL (8.8-10.2); CARBON DIOXIDE LEVEL 27 MEQ/L (21-32); CHLORIDE LEVEL 113 MEQ/L (98-107); CK-MB VALUE MASS 1.1 NG/ML (<3.6); CPK CREATINE PHOSPHOKINASE 29 U/L (26-192); CREATININE FOR GFR 0.54 MG/DL (0.55-1.30); GLOMERULAR FILTRATION RATE > 60.0 (>32); GLUCOSE, FASTING 101 MG/DL (70-100); MB/CK RELATIVE INDEX 3.79 (< OR =4); POTASSIUM SERUM 3.7 MEQ/L (3.5-5.1); SODIUM LEVEL 144 MEQ/L (136-145); TROPONIN I < 0.02 NG/ML (< 0.10)
[2020-08-01] MEDS ORDERED: METOPROLOL TART 50 MG TAB PO ONE (11:35)
[2020-08-01 12:02] LABS: ALT/SGPT 16 U/L (12-78); BILIRUBIN,DIRECT < 0.1 MG/DL (0.0-0.2); BILIRUBIN,TOTAL 0.1 MG/DL (0.2-1.0); TOTAL PROTEIN 5.5 GM/DL (6.4-8.2)
[2020-08-01] MEDS ORDERED: AMIODARONE HCL 150 MG in IV 1 EA IV STA ×2 (13:20→14:03)
[2020-08-01 13:38] VITALS: BP 134/87
[2020-08-01 14:20] LABS: THYROID STIMULATING HORMONE 0.629 uIU/ML (0.358-3.740)
[2020-08-01 15:39] LABS: CK-MB VALUE MASS < 1.0 NG/ML (<3.6); CPK CREATINE PHOSPHOKINASE 26 U/L (26-192); MB/CK RELATIVE INDEX 3.85 (< OR =4); TROPONIN I 0.07 NG/ML (< 0.10)
[2020-08-01 16:15] VITALS: BP 141/65
[2020-08-01] MEDS ORDERED: METO25TA4 PO (17:08)
[2020-08-01] MEDS ORDERED: ELIQ5TAB PO (17:08)
--- NOTE | 2020-08-02 07:33 | ECGEPIP ---
[facility] - ED Test Date: 2020-08-01 Pat Name: ROWAN JAMES Department: Room: - Gender: Female Head Loader: GALLO : 1935 Requested By: HAYDEN Elder Order Number: [id number] Reading MD: Amol Fletcher Measurements Intervals [place] Rate: 122 P: PA: QRS: -62 QRSD: 134 T: 93 QT: 364 QTc: 518 Interpretive Statements Atrial fibrillation with rapid ventricular response Left axis deviation Left bundle branch block RHYTHM/RATE CHANGE COMPARED TO 04/04/20 Electronically Signed on 08-02-2020 7:33:19 EDT by Amol Fletcher
--- NOTE | 2020-08-02 07:39 | ECGEPIP ---
[facility] - ED Test Date: 2020-08-01 Pat Name: ROWAN JAMES Department: Room: - Gender: Female Operation Agent: GALLO : 1935 Requested By: HAYDEN Elder Order Number: [id number] Reading MD: Amol Fletcher Measurements Intervals [place] Rate: 81 P: [place]: QRS: -60 QRSD: 132 T: 68 QT: 420 QTc: 487 Interpretive Statements Atrial fibrillation Left axis deviation Left bundle branch block RATE CHANGE COMPARED TO PRIOR ON SAME DATE Electronically Signed on 08-02-2020 7:39:31 EDT by Amol Fletcher
== END 2020-08-01 17:57 | disposition home or self-care (01) ==
LOC: M ED 09:37 → EDBD 09:37 → M ED 17:57
DX: I48.91 Unspecified atrial fibrillation (principal); E78.5 Hyperlipidemia, unspecified; M85.9 Disorder of bone density and structure, unspecified; L30.9 Dermatitis, unspecified; I73.9 Peripheral vascular disease, unspecified; Z79.01 Long term (current) use of anticoagulants; Z79.899 Other long term (current) drug therapy; Z88.0 Allergy status to penicillin; F17.210 Nicotine dependence, cigarettes, uncomplicated
CPT/HCPCS: 71045; 80048; 80076; 82550; 82553; 84443; 84484; 85025; 85610; 93005; 93041; 94760; 96374; 96375; 99285; J0282

== ENCOUNTER 2020-11-19 05:02 | Emergency (ER) | payer MEDICARE, MEDICAID ==
[~2020-11-19] VITALS: Ht 160 cm; Wt 74.0 kg
[~2020-11-19 05:02] MED LIST changes: -ALEN35TA54 PO; +ALEN35TA56 PO; -DOXY100C37; +DOXY1CAP62; +ELIQ5TAB PO; +METO25TA4 PO
[2020-11-19] MEDS ORDERED: ANOR1AER INH (05:19)
[2020-11-19] MEDS ORDERED: ALBU8.5H INH (05:19)
[2020-11-19] MEDS ORDERED: DOXY100T PO (05:19)
[2020-11-19] MEDS ORDERED: LEVO500T3 PO (06:39)
[2020-11-19] MEDS ORDERED: PRED20TA PO (06:39)
[2020-11-19] MEDS ORDERED: predniSONE 20 MG TAB PO ONE (06:40)
[2020-11-19] MEDS ORDERED: LevoFLOXacin 500 MG TABLET PO ONE (06:40)
[2020-11-19 06:54] VITALS: BP 140/65
== END 2020-11-19 06:57 | disposition home or self-care (01) ==
LOC: M ED 05:02
DX: L30.9 Dermatitis, unspecified (principal); H60.13 Cellulitis of external ear, bilateral; J44.9 Chronic obstructive pulmonary disease, unspecified; J45.909 Unspecified asthma, uncomplicated; I48.91 Unspecified atrial fibrillation; M85.9 Disorder of bone density and structure, unspecified; Z88.0 Allergy status to penicillin; Z79.899 Other long term (current) drug therapy; Z79.01 Long term (current) use of anticoagulants
CPT/HCPCS: 99283; J7512

== ENCOUNTER 2020-11-30 06:30 | Emergency (ER) | payer MEDICARE, MEDICAID ==
[~2020-11-30] VITALS: Ht 160 cm; Wt 74.0 kg
[~2020-11-30 06:30] MED LIST changes: +ALBU8.5H INH; +ANOR1AER INH; +DOXY100T PO; +LEVO500T3 PO
[2020-11-30] MEDS ORDERED: PEPC1TAB5 PO (11:20)
[2020-11-30] MEDS ORDERED: PRED20TA PO (11:20)
[2020-11-30] MEDS ORDERED: CEPH500C PO (11:20)
[2020-11-30 11:25] VITALS: BP 133/63
== END 2020-11-30 11:39 | disposition home or self-care (01) ==
LOC: M ED 06:30
DX: H60.13 Cellulitis of external ear, bilateral (principal); L30.9 Dermatitis, unspecified; I25.10 Atherosclerotic heart disease of native coronary artery without angina pectoris; Z87.891 Personal history of nicotine dependence; Z79.01 Long term (current) use of anticoagulants; Z79.899 Other long term (current) drug therapy; Z88.0 Allergy status to penicillin

== ENCOUNTER → 2021-01-18 | Outpatient (REF) | payer MEDICARE, MEDICAID ==
[~2021-01-18] MED LIST changes: +DOXY-443; -DOXY1CAP62; +PEPC1TAB5 PO
== END ==
LOC: M LAB REF 18:51
PROVIDERS: ATTEND Internal Medicine Endocrinology, Diabetes & Metabolism
DX: E04.1 Nontoxic single thyroid nodule (principal)

== ENCOUNTER → 2021-01-23 | Outpatient (CLI) | payer MEDICARE, MEDICAID ==
--- NOTE | 2021-01-23 20:23 | REP ---
INDICATION: PAIN. COMPARISON: CT 11/11/2019 TECHNIQUE: Five views FINDINGS: There is a levorotatory curvature of the lumbar spine centered at L2 there is vacuum phenomenon from L1-2 through L4-5. Marginal osteophytes are seen throughout. There is no definite acute compression deformity with vertebral contours similar to the CT last year. Atherosclerotic calcifications aorta without gross aneurysm. There is facet arthropathy as well as degenerative disc change with marginal osteophytes at all levels. Bone island in the left iliac wing and L3 vertebral body as on CT. Visualized lower thoracic levels and ribs grossly intact. IMPRESSION: Lumbar spondylosis with diffuse degenerative disc changes including vacuum phenomenon marginal osteophytes and disc space narrowing. Chronic changes stable. Diffuse facet arthropathy. No new or acute finding. <Electronically signed by Robert Jhaveri > 01/23/212018
--- NOTE | 2021-01-23 20:26 | REP ---
INDICATION: PAIN. COMPARISON: Right knee 04/29/2008 TECHNIQUE: Five views each side FINDINGS: Right knee: Minor degenerative changes. No evidence of joint space narrowing of the medial or lateral compartments. Patellofemoral joint shows no narrowing or patellar subluxation. No suprapatellar effusion, osteochondral defect, loose body or fracture evident. No focal bone lesion. Left knee: Minor degenerative changes. No evidence of joint space narrowing of the 3 compartments. There is no patellar subluxation. I see no visible fracture, loose body, osteochondral defect or definite left effusion. IMPRESSION: 1. Mild degenerative changes of both knees without acute fracture, loose body, joint effusion, osteochondral defect or other significant finding. <Electronically signed by Robert Jhaveri > 01/23/212021
== END ==
LOC: M WUC 15:19
PROVIDERS: ATTEND Physician Assistant
DX: M25.562 Pain in left knee (principal); M25.561 Pain in right knee; M54.50 Low back pain, unspecified; M25.78 Osteophyte, vertebrae; M47.816 Spondylosis without myelopathy or radiculopathy, lumbar region

== ENCOUNTER 2021-03-13 17:15 | Observation (INO) | payer MEDICARE, MEDICAID ==
[~2021-03-13] VITALS: Ht 160 cm; Wt 77.7 kg
[2021-03-13] MEDS ORDERED: LEVO88TA3 PO ×2 (17:33→20:04)
[2021-03-13] MEDS ORDERED: traMADol 50 MG TAB PO ONE (17:40)
[2021-03-13] MEDS ORDERED: PILL CUTTER 1 EACH XX PRN (17:45)
--- NOTE | 2021-03-13 18:10 | REP ---
INDICATION: ?Bakers cyst right knee COMPARISON: None TECHNIQUE: Grayscale and color evaluation using linear high-frequency transducer. FINDINGS: Ultrasound examination of the right popliteal fossa demonstrates a complex fluid collection measuring 3.6 x 0.9 x 1.6 cm consistent with Leger's cyst. 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 <Electronically signed by Chandrakant Palmer > 03/13/21 [id number]
--- NOTE | 2021-03-13 18:46 | REP ---
INDICATION: admission COMPARISON: 08/01/2020 TECHNIQUE: Portable AP view of the chest FINDINGS: The mediastinum and cardiac silhouette are stable and within normal limits for portable technique. Trace bibasilar scarring versus atelectasis cannot be differentiated. No focal consolidation or effusion. No pneumothorax. Skeletal structures are stable. IMPRESSION: Trace linear bibasilar scarring versus atelectasis. <Electronically signed by Chandrakant Palmer > 03/13/21 [id number]
[2021-03-13 18:53] LABS: HEMATOCRIT 39.1 % (36.0-47.0); MEAN CORPUSCULAR HEMOGLOBIN 32.5 pg (27.0-33.0); MEAN CORPUSCULAR HGB CONC 33.2 g/dl (32.0-36.5); MEAN CORPUSCULAR VOLUME 97.8 fl (80.0-96.0); PLATELET COUNT, AUTOMATED 275 10^3/uL (150-450); WHITE BLOOD COUNT 7.5 10^3/uL (4.0-10.0)
[2021-03-13 19:09] LABS: BLOOD UREA NITROGEN 17 MG/DL (7-18); CALCIUM LEVEL 8.9 MG/DL (8.8-10.2); CARBON DIOXIDE LEVEL 25 MEQ/L (21-32); CHLORIDE LEVEL 110 MEQ/L (98-107); CREATININE FOR GFR 0.81 MG/DL (0.55-1.30); GLOMERULAR FILTRATION RATE > 60.0 (>32); GLUCOSE, FASTING 104 MG/DL (70-100); POTASSIUM SERUM 4.1 MEQ/L (3.5-5.1); SODIUM LEVEL 141 MEQ/L (136-145)
--- NOTE | 2021-03-13 19:33 | ECGEPIP ---
[facility] - ED Test Date: 2021-03-13 Pat Name: ROWAN JAMES Department: Room: - Gender: Female Lineworker: PAVAN : 1935 Requested By: Amol Santos Order Number: [id number] Reading MD: Sujey Huggins Measurements Intervals [place] Rate: 64 P: 68 CA: 208 QRS: -56 QRSD: 148 T: 81 QT: 482 QTc: 497 Interpretive Statements Normal sinus rhythm Left axis deviation Left bundle branch block Electronically Signed on 03-13-2021 19:33:46 EST by Sujey Huggins
[2021-03-13] MEDS ORDERED: METO25TA4 PO (20:04)
[2021-03-13] MEDS ORDERED: ELIQ5TAB PO (20:04)
[2021-03-13] MEDS ORDERED: APAP325T4 PO (20:04)
[2021-03-13] MEDS ORDERED: CALC1TAB30 PO (20:04)
[2021-03-13] MEDS ORDERED: CALC1TAB49 PO (20:04)
[2021-03-13] MEDS ORDERED: GABA-283 PO (20:04)
[2021-03-13] MEDS ORDERED: HOME MED LIST COMPLETE! XX SCH (20:05)
[2021-03-13 20:15] LABS: RSV AMPLIFICATION NEGATIVE (NEGATIVE)
[2021-03-13] MEDS ORDERED: MORPHINE 2 MG/ML 1ML VIAL (J2270) IV ONE (20:15)
--- NOTE | 2021-03-13 20:16 | HPEPDOC ---
General Date of Admission Date of Service: Mar 13, 2021 Attending Physician: Bridget Yates Chief Complaint Pain inthe back of right knee Source: Patient History of Present Illness Mrs. Mata, an 85 year-old woman presented to the emergency department for pain in the right knee. She has been having the pain in the right popliteal fossa for a long time, but it suddenly increased in severity this morning. She experienced excruciating pain when she \got up today. The pain has been severe in intensity. It has been sharp in character. It does not radiate beyond the right knee. Making mopvements worsens the pain. Lying still somehat relives it. She was walking withcane for a while now, but today, she has not been able to walk. She noted a swelling in the politeal fossa today. She has had no fever today. She has no past history of rheumatoid arthriotis. She has quit smoking a year back. She has COPD but doesn't use oxygen at home and has no shortness of breath at present. She has no chest pain, cough, sputum production, abdomen pain, nausea, vomiting, headache, blurry vision, extremity focal weakness, skin rash, sore throat, or symptoms of cold. Home Medications Scheduled Albuterol Sulfate (Albuterol Sulfate Hfa) 8.5 Gm Hfa.aer.ad, 2 PUFFS INH DAILY, (Reported) Apixaban (Eliquis) 5 Mg Tablet, 5 MG PO BID, (Reported) Calcium Citrate/Vitamin D3 (Calcium Cit 200-Vit D3 250 Tab) 1 Each Tablet, 2 TAB PO DAILY, (Reported) Gabapentin (Gabapentin) 400 Mg Capsule, 400 MG PO TID, (Reported) only takes for shingle pain Levothyroxine Sodium (Levothyroxine Sodium) 88 Mcg Tablet, 88 MCG PO DAILY, (Reported) Metoprolol Tartrate (Metoprolol Tartrate) 25 Mg Tablet, 25 MG PO BID, (Reported) Omeprazole (Omeprazole) 40 Mg Capsule.dr, 40 MG PO DAILY, (Reported) Umeclidinium Brm/Vilanterol Tr (Anoro Ellipta 62.5-25 Mcg INH) 1 Each Blst.w.dev, 1 PUFF INH DAILY, (Reported) Scheduled PRN Acetaminophen (Acetaminophen) 325 Mg Tablet, 650 MG PO Q6HP PRN for PAIN LEVEL 1-5, (Reported) Allergies Coded Allergies: Penicillins (Verified Allergy, Intermediate, hives, 05/10/19) Past Medical History Medical History COPD Social History * Smoker: former Smoker Alcohol: Denies A-FIB/CHADSVASC A-FIB History Current/History of A-Fib/PAF?: No Current PO Anticoag Therapy: Yes Review of Systems Other systems 10-system review negative except as docuemnetd in the history of present illness. Physical Examination General Exam: Positive: Cooperative ENT Exam: Positive: Tongue Midline Neck Exam: Negative: Supple, JVD, +2 carotid pulse wo bruit, Lymphadenopathy, Other Chest Exam: Negative: Clear to auscultation, Normal air movement, Rales, Rhonchi, Wheezing, Diminished, Other Heart Exam: Positive: Regular Rhythm; Negative: Rate Normal, Tachycardic, Bradycardic, Irregular Rhythm, Normal S1, Normal S2, Gallops, Murmurs, Rubs, Other Abdomen Exam: Negative: Normal bowel sounds, BS Hyperactive, BS Hypoactive, Soft, Tenderness, Hepatospenomegaly, Mass, Hernia, Other Extremity Exam: Positive: Other (Swelling inthe right popilteal fossa. Mild tenderness on palpation. No redness or warmth.) Skin Exam: Negative: Nl turgor and temperature, Rash, Breakdown, Lesion, Pruritus, Other skin issue Psych Exam: Positive: Other (Normal mood and affect.) Vital Signs Vital Signs Date Time Temp Pulse Resp B/P (MAP) Pulse Ox O2 Delivery O2 Flow Rate FiO2 03/13/21 17:53 20 03/13/21 17:24 97.3 64 134/63 (86) 98 Room Air Laboratory Data Labs 24H Laboratory Tests 2 03/13/21 18:27: Nucleated Red Blood Cells % (auto) 0.0 03/13/21 18:39: Anion Gap 6L, Glomerular Filtration Rate > 60.0, Calcium Level 8.9 CBC/BMP Laboratory Tests 03/13/21 18:27 03/13/21 18:39 Assessment/Plan Leger's cyst, complex, with ambulatory dysfunction Differential diagnosis includes ruptured Leger's cyst. Pain management: Acetaminophen orally for mild and moderate pain, and oxycodone- acetaminoiphen for severe pain, as required. Physical and occupational therapy Orthopedics consult Atrial fibrillation Rate controlled at this time. Apixaban to continue. Hypothyroidism Levothyroxine to continue. GERD PPI to continue. DVT prophylaxis [On therapeutic anticoagulation with apixaban] Coronavirus screening SARS CoV-2 PCR specimen drawn in the emergency department. Plan / VTE VTE Prophylaxis Ordered?: No (On therapeutic anticoagulation) Bridget Yates Mar 13, 2021 19:57
[2021-03-13] MEDS ORDERED: ACETAMINOPHEN TAB 650MG DOSE (2X325MG) PO PRN (20:20)
[2021-03-13] MEDS ORDERED: GABAPENTIN 400MG CAP PO SCH (21:00)
[2021-03-13] MEDS: APIXABAN 5 MG TAB (ELIQUIS) PO SCH (23:00)
[2021-03-13] MEDS: METOPROLOL TART 25 MG TABLET PO SCH (23:01)
[2021-03-13] MEDS: PERCOCET 5MG/325MG TAB PO PRN (23:12)
[2021-03-14] MEDS: LEVOTHYROXINE 88MCG TABLET (0.088 MG) PO SCH (06:00)
--- NOTE | 2021-03-14 07:59 | ER ---
ER CONSULTATION DATE: 03/13/2021 TIME: 6:30 p.m. SURGEON: Pipo Zavala MD CONSULTING SERVICE: Orthopedic surgery. HISTORY OF PRESENT ILLNESS: This is an 85-year-old female with lezaz-ey-rfetzsc right posterior knee pain secondary to Leger's cyst. The patient complains of inability to weight bear for the last 48 hours secondary to significant pain in the posterior aspect of her right knee. The patient has history of right knee osteoarthritis with no history of gout. She did not have effusion of the right knee joint. The patient presented with 97.3 temperature, pulse 64, respiratory rate 18, no clinical signs of a septic knee. The patient has no history of gout. Orthopedic surgery was consulted for further evaluation and treatment. MEDICAL HISTORY: Lumbago, uterine fibroid, thyroid nodule, bronchitis, history of appendicitis, syncope, Afib with RVR as well as right Leger's cyst of the knee. SURGICAL HISTORY: Please see internal medicine note. ALLERGIES: PENICILLINS. CURRENT MEDICATIONS: Please see internal medicine note. REVIEW OF SYSTEMS: 14-point review of systems negative unless otherwise described in HPI above. PHYSICAL EXAMINATION: Alert and oriented to person, time and place. Right knee: The patient had a palpable mass on the posterior aspect of her right leg. This underwent ultrasound which was consistent with large effusion and consistent with Leger's cyst. Her right lower extremity had no effusion of the right knee and there was no cellulitis, erythema or redness surrounding the right knee. The patient was able to perform straight leg raise with minimal pain except at the posterior aspect of her knee. She is stable to varus and valgus stress at 0 and 30 degrees. Negative anterior drawer and negative posterior drawer. Isolated tenderness to palpation about the posterior aspect. She was neurovascularly intact to the right lower extremity with 5/5 motor strength to the EHL, FHL, tibialis anterior, gastrocnemius and peroneal musculature. Sensation intact to light touch to the deep and superficial peroneal, sural, saphenous and tibial nerve distributions. She had palpable pulses in dorsalis pedis and posterior tibial artery. Brisk capillary refill to the digits. IMAGING DATA: Demonstrate some very mild tricompartmental osteoarthritis with minimal joint narrowing in medial and lateral patellofemoral joints. There are no other osseous abnormalities IMPRESSION: This is an 85-year-old female with symptomatic right Leger's cyst. PLAN: At this point in time I do believe the patient would benefit from interventional radiology aspiration of the right Leger's cyst. I recommend aspiration to the greatest extent possible and then biopsy and culture of the aspirant. It will likely be consistent with synovial fluid. However, confirmation would be appropriate. After aspiration I will continue to round on the patient and recommend early physical therapy for range of motion and weightbearing as tolerated to the right lower extremity.
[2021-03-14] MEDS: ALBUTEROL 90 MCG/ACT 8GM HFA INHALER INH SCH (08:00)
[2021-03-14 09:00] VITALS: BP 136/94
[2021-03-14] MEDS: METOPROLOL TART 25 MG TABLET PO SCH ×2 (09:41→20:30)
[2021-03-14] MEDS: APIXABAN 5 MG TAB (ELIQUIS) PO SCH ×2 (09:41→20:28)
--- NOTE | 2021-03-14 10:42 | IPNPDOC ---
Text Note Date of Service The patient was seen on 03/14/21. NOTE Subjective: 85-year-old female presented to the emergency room department with acute on chronic right posterior knee pain that had worsened to the point of having inability to bear weight for the last 48 hours. A ultrasound done noted a complex Bakers cyst. Patient was seen and examined at bedside this morning. She complains of right posterior knee pain limiting her to flex the knee. She denies fever, chills, abdominal pain, nausea, vomiting, problem with urination or bowel movements. Review of systems: 10 point review of system was negative except for what is noted in the HPI Physical exam: General: Lying in bed, no acute distress Head/Neck/Throat: Trachea midline, mucous membranes moist Eyes: Sclera anicteric, no erythema or discharge appreciated bilaterally Thorax: Normal respiratory effort on room air, lungs clear to auscultation bilaterally, no wheezes/rales/rhonchi Cardiovascular: Normal rate, regular rhythm, normal S1, S2; no S3, S4, rubs/gallops/murmurs Abdomen: Bowel sounds present, soft/nontender/nondistended Genitourinary: No CVA tenderness, no Belcher in place Musculoskeletal: There is no edema appreciated of the right knee. No tenderness reported with bony palpation. Tenderness reported with palpation in the posterior popliteal region. Limited range of active as well as passive motion of the right knee due to reported pain. Upper and lower extremities full active range of motion appreciated. Sensation to gross touch in the upper and lower extremities that is intact. Dorsalis pedis palpable bilaterally as well as posterior tibial. Skin: Warm, dry Neurologic: AAOx3, speech fluent and goal-directed, no focal deficits, grossly intact Labs: See below Imaging: Please see imaging section Assessment/plan: 85-year-old female with a past medical history of A. fib, hypothyroidism, and GERD presented with acute on chronic right posterior knee pain which worsened over the last 48 hours making mobility difficult. #Right posterior knee pain -Possibly secondary to a symptomatic Leger's cyst, however would like to rule out other vascular pathology. Discussed with on-call orthopedics team that we do not have IR to drain cyst. Recommended MRI did not have the need to be done for now. #Atrial fibrillation -Rate is controlled with metoprolol and anticoagulated with apixaban #Hypothyroidism -Continue with levothyroxine #GERD -Continue with metoprolol #DVT prophylaxis -Offered by apixaban VS,Fara, I+O VS, Fara, I+O Laboratory Tests 03/13/21 18:27 03/13/21 18:39 Vital Signs Date Time Temp Pulse Resp B/P (MAP) Pulse Ox O2 Delivery O2 Flow Rate FiO2 03/14/21 09:41 72 136/94 03/14/21 09:00 98.9 18 93 Room Air YUKI MANCIA M.D. Mar 14, 2021 10:42
--- NOTE | 2021-03-14 11:07 | CR.PDOC ---
General Date of Consultation: Mar 14, 2021 Attending Physician: EVANGELIST WELCH MD Consultation REASON FOR CONSULTATION/CHIEF COMPLAINT: [Patient seen by on-call physician 03/14/2021. Interventional Leger's cyst drainage elbow over the holidays. Asked to discuss further options]. History as per Dr. Fay, confirmed with patient [id number] right posterior knee pain secondary to Leger's cyst. The patient complains of inability to weight bear for the last 48 hours secondary to significant pain in the posterior aspect of her right knee. The patient has history of right knee osteoarthritis with no history of gout. She did not have effusion of the right knee joint. The patient presented with 97.3 temperature, pulse 64, respiratory rate 18, no clinical signs of a septic knee. The patient has no history of gout. Orthopedic surgery was consulted for further evaluation and treatment. MEDICAL HISTORY: Lumbago, uterine fibroid, thyroid nodule, bronchitis, history of appendicitis, syncope, Afib with RVR as well as right Leger's cyst of the knee. SURGICAL HISTORY: Please see internal medicine note. ALLERGIES: PENICILLINS. CURRENT MEDICATIONS: Please see internal medicine note. REVIEW OF SYSTEMS: 14-point review of systems negative unless otherwise described in HPI above. PHYSICAL EXAMINATION: Alert and oriented to person, time and place. Patient resting comfortably in bed .states she only has right knee pain right knee: Patient's popliteal fossa is full but soft. Not significantly tender. Good popliteal pulse felt. Good pulses at the ankle posterior tibial pulse and dorsalis pedis. Right extremity sensory intact to light touch. Range of motion of the hip causes no pain. Negative logroll test Range of motion of knee 0 to 15 degrees. Significant posterior knee pain. right knee and there was no cellulitis, erythema or redness surrounding the right knee. The patient was able to perform straight leg raise with minimal pain except at the posterior aspect of her knee. She is stable to varus and She is grossly neurologically intact Follow-up for of her lower extremity vasculature. FAMILY HISTORY: Noncontributory SOCIAL HISTORY: Noncontributory REVIEW OF SYSTEMS: 14 point review of systems negative otherwise for the HPI LABORATORY DATA: Please see below. ASSESSMENT/PLAN: 1. [Right knee osteoarthritis]. 2. [Leger's cyst on ultrasound. Unfortunately IR not available. Discussed with hospitalist. Agree with previous surgeon's assessment. Recommended MRI to further evaluate intra-articular pathology then can make further recommendations]. Vital Signs/I&O Vital Signs Date Time Temp Pulse Resp B/P (MAP) Pulse Ox O2 Delivery O2 Flow Rate FiO2 03/14/21 09:41 72 136/94 03/14/21 09:00 98.9 18 93 Room Air Laboratory Data Labs 24H Laboratory Tests 2 03/13/21 18:27: Nucleated Red Blood Cells % (auto) 0.0 03/13/21 18:39: Anion Gap 6L, Glomerular Filtration Rate > 60.0, Calcium Level 8.9, Coronavirus (COVID-19)(PCR) NEGATIVE, Influenza Type A (RT-PCR) NEGATIVE, Influenza Type B (RT-PCR) NEGATIVE, Respiratory Syncytial Virus (PCR) NEGATIVE CBC/BMP Laboratory Tests 03/13/21 18:27 03/13/21 18:39 Allergies Coded Allergies: Penicillins (Verified Allergy, Intermediate, hives, 05/10/19) Home Medications Scheduled Albuterol Sulfate (Albuterol Sulfate Hfa) 8.5 Gm Hfa.aer.ad, 2 PUFFS INH DAILY, (Reported) Apixaban (Eliquis) 5 Mg Tablet, 5 MG PO BID, (Reported) Calcium Citrate/Vitamin D3 (Calcium Cit 200-Vit D3 250 Tab) 1 Each Tablet, 2 TAB PO DAILY, (Reported) Gabapentin (Gabapentin) 400 Mg Capsule, 400 MG PO TID, (Reported) only takes for shingle pain Levothyroxine Sodium (Levothyroxine Sodium) 88 Mcg Tablet, 88 MCG PO DAILY, (Reported) Metoprolol Tartrate (Metoprolol Tartrate) 25 Mg Tablet, 25 MG PO BID, (Reported) Omeprazole (Omeprazole) 40 Mg Capsule.dr, 40 MG PO DAILY, (Reported) Umeclidinium Brm/Vilanterol Tr (Anoro Ellipta 62.5-25 Mcg INH) 1 Each Blst.w.dev, 1 PUFF INH DAILY, (Reported) Scheduled PRN Acetaminophen (Acetaminophen) 325 Mg Tablet, 650 MG PO Q6HP PRN for PAIN LEVEL 1-5, (Reported) EVANGELIST WELCH MD Mar 14, 2021 11:07
[2021-03-14] MEDS: PERCOCET 5MG/325MG TAB PO PRN (14:45)
--- NOTE | 2021-03-14 15:36 | REP ---
INDICATION: Right knee area Follow-up from ultrasound.. COMPARISON: No prior MRIs for comparison TECHNIQUE: Sagittal spin-echo proton density, T2 STIR and T2 FLASH. Coronal spin-echo proton density and fat suppressed proton density. Axial fat suppressed proton density. FINDINGS: There is rather extensive appearing grade 1 signal change in the periphery of the lateral meniscus from anterior to posterior. The anterior and posterior horns of the medial meniscus are within normal limits. The anterior and posterior cruciate ligaments are intact. The quadriceps and patellar tendons are intact. The medial and lateral collateral ligaments are intact. The medial and lateral patellar retinacula are intact. There is advanced thinning and irregularity of all articular cartilages particularly affecting the patellar articular cartilage which is seen in conjunction with subchondral T2 hyper signal in the median patellar marrow. Seen between the tendons of the medial head of the gastrocnemius muscle and semimembranosus muscle there is a 5.1 x 2.3 x 2.5 cm sized slightly complex fluid collection. There is a slight joint effusion. IMPRESSION: 1. Degenerative type signal changes seen in the periphery of lateral meniscus as described above. And interstitial substance tear cannot be ruled out. 2. Tricompartmental chondromalacia as described above. 3. Leger's cyst as described above. 4. There is a slight joint effusion. <Electronically signed by Kiel Nash > 03/14/21 [id number]
[2021-03-14] MEDS ORDERED: LIDOCAINE 1% MDV 50ML VIAL SC ONE (16:50)
[2021-03-14] MEDS ORDERED: BUPIVACAINE HCL 0.5% 10ML VIAL SC ONE (16:50)
[2021-03-14] MEDS ORDERED: TRIAMCINOLONE ACETONIDE SUSP 40 MG/ML VIAL (J3301) IA ONE (19:00)
[2021-03-14 22:00] VITALS: BP 119/66
--- NOTE | 2021-03-15 05:32 | IPN ---
ORTHOPEDIC PROGRESS NOTE DATE: 03/15/2021 SUBJECTIVE: This is an 85-year-old female with acute on chronic right posterior knee pain secondary to a Leger's cyst, mild tricompartmental osteoarthritis. Patient underwent appropriate imaging today with knee radiographs and MRI which confirmed the diagnosis of a posterior Leger's cyst of the right knee. Patient will likely require interventional radiology cyst drainage, however in the meantime we will start treatment today with a right knee cortisone injection of which the patient tolerated well. See procedure note below. Patient is otherwise resting comfortably in bed and had immediate relief of pain after the corticosteroid injection. OBJECTIVE: The patient was alert and oriented to person, time and place. The right knee did not have any swelling at this point in time, however she did have the Leger's cyst which is palpable on the posterior aspect of her knee. She was otherwise neurovascularly intact to the right lower extremity. There was 5/5 motor strength in the EHL, FHL, tibialis, anterior gastrocnemius, and peroneal musculature. Sensation intact to light touch to the deep and superficial peroneal, sural saphenous and tibial nerve distributions of the right leg. Brisk capillary refill of the digits and 2+ dorsalis pedis and posterior tibial arterial pulse. PROCEDURE: Right knee corticosteroid injection. PERFORMING PHYSICIAN: CRESCENCIO ZAVALA MD DOSE: Steroid 40 mg/ml Triamcinolone Acetonide 1 ml, 3 ml of Lidocaine 1% without Epinephrine and 3 ml of Marcaine 1% without Epinephrine. PROCEDURE: The right anterolateral aspect of the knee was prepped in the usual sterile fashion. It was cleaned with alcohol. The 18 gauge needle was inserted into the affected area into the knee joint and the above solution was injected. The patient tolerated the procedure well and there were no complications during the procedure. FOLLOW-UP: The patient tolerated the procedure well without complications. Standard post-procedure care was explained and precautions were given. ASSESSMENT: An 85-year-old female with right knee posterior Leger's cyst that was symptomatic in the right knee, tricompartmental osteoarthritis. PLAN: At this point in time I encouraged Physical Therapy to work with patient for right knee range of motion and weightbearing as tolerated. I do believe she will likely require Interventional Radiology to perform a Leger's cyst aspiration, however at this time they are on holiday and likely will not be available for seven days. If patient is able to tolerate weightbearing as tolerated, she will likely be able to be discharged or discharged to a rehabilitation service floor. Patient will follow-up at the [facility] with Dr. Zavala, myself, on the February for scheduled interventional radiology knee aspiration.
[2021-03-15] MEDS: LEVOTHYROXINE 88MCG TABLET (0.088 MG) PO SCH (05:35)
[2021-03-15 06:00] VITALS: BP 150/77
[2021-03-15] MEDS: ALBUTEROL 90 MCG/ACT 8GM HFA INHALER INH SCH (07:51)
[2021-03-15 07:55] LABS: HEMATOCRIT 42.8 % (36.0-47.0); HEMOGLOBIN 13.7 g/dl (12.0-15.5); PLATELET COUNT, AUTOMATED 310 10^3/uL (150-450); RED BLOOD COUNT 4.28 10^6/uL (4.00-5.40); WHITE BLOOD COUNT 6.6 10^3/uL (4.0-10.0)
[2021-03-15] MEDS: APIXABAN 5 MG TAB (ELIQUIS) PO SCH ×2 (07:57→21:08)
[2021-03-15] MEDS: PERCOCET 5MG/325MG TAB PO PRN ×3 (07:57→21:08)
[2021-03-15] MEDS: METOPROLOL TART 25 MG TABLET PO SCH ×2 (07:58→21:07)
[2021-03-15 08:21] LABS: BLOOD UREA NITROGEN 21 MG/DL (7-18); CALCIUM LEVEL 9.1 MG/DL (8.8-10.2); CARBON DIOXIDE LEVEL 27 MEQ/L (21-32); CHLORIDE LEVEL 108 MEQ/L (98-107); CREATININE FOR GFR 0.84 MG/DL (0.55-1.30); GLOMERULAR FILTRATION RATE > 60.0 (>32); GLUCOSE, FASTING 129 MG/DL (70-100); MAGNESIUM LEVEL 2.3 MG/DL (1.8-2.4); PHOSPHORUS LEVEL 3.1 MG/DL (2.5-4.9); POTASSIUM SERUM 4.6 MEQ/L (3.5-5.1); SODIUM LEVEL 140 MEQ/L (136-145)
--- NOTE | 2021-03-15 11:36 | IPNPDOC ---
Text Note Date of Service The patient was seen on 03/15/21. NOTE Subjective: 85-year-old female presented to the emergency room department with acute on chronic right posterior knee pain that had worsened to the point of having inability to bear weight for the last 48 hours. A ultrasound done noted a complex Bakers cyst. Patient was seen and examined at bedside this morning. She received a right knee steroid injection and reported some improvement in her right knee pain. She was able to get up and bear weight on the leg while using the commode. However, she was hesitant on advancing activity until she was evaluated by physical therapy. Orthopedics had recommended IR to perform a Leger's cyst aspiration but since this was the holiday and thumb not being available for several days she would likely benefit from following up with [facility] orthopedic clinic for this to be scheduled. Review of systems: 10 point review of system was negative except for what is noted in the HPI Physical exam: General: Lying in bed, no acute distress Head/Neck/Throat: Trachea midline, mucous membranes moist Eyes: Sclera anicteric, no erythema or discharge appreciated bilaterally Thorax: Normal respiratory effort on room air, lungs clear to auscultation bilaterally, no wheezes/rales/rhonchi Cardiovascular: Normal rate, regular rhythm, normal S1, S2; no S3, S4, rubs/gallops/murmurs Abdomen: Bowel sounds present, soft/nontender/nondistended Genitourinary: No CVA tenderness, no Belcher in place Musculoskeletal: She is able to bend her right knee today and reports no tenderness with palpation. Sensation to gross touch intact. Skin: Warm, dry Neurologic: AAOx3, speech fluent and goal-directed, no focal deficits, grossly intact Labs: See below Imaging: Please see imaging section Assessment/plan: 85-year-old female with a past medical history of A. fib, hypothyroidism, and GERD presented with acute on chronic right posterior knee pain which worsened over the last 48 hours making mobility difficult. #Right posterior knee pain -Possibly secondary to a symptomatic Leger's cyst. MRI of the knee was reviewed by orthopedic team and no further acute interventions required at this time. Status post corticosteroid injection with some improvement. She is to be weightbearing as tolerated. Continue working with physical therapy. #Atrial fibrillation -Rate is controlled with metoprolol and anticoagulated with apixaban #Hypothyroidism -Continue with levothyroxine #GERD -Continue with metoprolol #DVT prophylaxis -Offered by apixaban Disposition: Patient is medically stable to be discharged; and will be working with physical therapy now. VS,Dereckbone, I+O VS, Dereckbone, I+O Laboratory Tests 03/15/21 07:37 Vital Signs Date Time Temp Pulse Resp B/P (MAP) Pulse Ox O2 Delivery O2 Flow Rate FiO2 03/15/21 08:27 18 Room Air 03/15/21 07:58 66 150/77 03/15/21 06:00 96.8 94 I&O- Last 24 Hours up to 6 AM 03/15/21 06:00 Intake Total 420 ml Balance 420 ml YUKI MANCIA M.D. Mar 15, 2021 11:36
[2021-03-15 20:43] VITALS: BP 122/80
[2021-03-16 05:10] VITALS: BP 130/72
[2021-03-16] MEDS: LEVOTHYROXINE 88MCG TABLET (0.088 MG) PO SCH (05:14)
[2021-03-16] MEDS: PERCOCET 5MG/325MG TAB PO PRN ×2 (07:36→13:30)
[2021-03-16 07:37] VITALS: BP 130/72
[2021-03-16] MEDS: METOPROLOL TART 25 MG TABLET PO SCH (07:37)
[2021-03-16] MEDS: APIXABAN 5 MG TAB (ELIQUIS) PO SCH (07:37)
[2021-03-16] MEDS: ALBUTEROL 90 MCG/ACT 8GM HFA INHALER INH SCH (07:45)
--- NOTE | 2021-03-16 11:25 | DS.PDOC ---
Discharge Summary General Date of Admission Mar 13, 2021 at 17:16 Date of Discharge 03/16/21 Discharge Summary DISCHARGE DIAGNOSES: Ambulatory dysfunction secondary to complex Leger's cyst COMPLICATIONS/CHIEF COMPLAINT: Right posterior knee pain HOSPITAL COURSE: Ms. Mata, is a 85-year-old female with a past medical history of COPD who presented to the emergency room department with posterior right knee pain. An ultrasound noted a complex Leger's cyst in the right popliteal fossa. She was evaluated by the orthopedic team and underwent a MRI of the knee. This showed degenerative changes in the periphery of the lateral meniscus, interstitial substance tear that could not be ruled out. There is also try carpi mental chondromalacia. There was a Leger's cyst again appreciated. As well, slight joint effusion. No acute interventions required, except for a steroid shot to the knee. There is significant improvement in her symptoms. It was recommended by the orthopedic team for her to have the Leger's cyst drained. However, there was no IR services during hospitalization therefore she was asked by the orthopedic team to follow-up with Dr. Zavala at the [facility] orthopedic clinic within 7 days. At the time of discharge, patient was able to bear weight on her leg and was also cleared by physical therapy. She was provided a rolling walker. DISCHARGE MEDICATIONS: Please see below. ALLERGIES: Please see below. PHYSICAL EXAMINATION ON DISCHARGE: VITAL SIGNS: Please see below. General: Lying in bed, no acute distress Head/Neck/Throat: Trachea midline, mucous membranes moist Eyes: Sclera anicteric, PERRLA Thorax: Normal respiratory effort on room air, lungs clear to auscultation bilaterally, no wheezes/rales/rhonchi Cardiovascular: Normal rate, regular rhythm, normal S1, S2; no S3, S4, rubs/gallops/murmurs Abdomen: Bowel sounds present, soft/nontender/nondistended Genitourinary: No CVA tenderness, no Belcher in place Musculoskeletal: Moving all extremities, no edema. She has full range of motion in her right knee. Sensation to gross touch intact. Dorsalis pedis as well as posterior tibial pulses palpated bilaterally. Skin: Warm, dry Neurologic: AAOx3, speech fluent and goal-directed, no focal deficits, grossly intact LABORATORY DATA: Please see below. IMAGING: Please see imaging section. Patient encouraged to obtain all imaging results for her review and possible follow-ups that may be required. PROGNOSIS: Good ACTIVITY: Weightbearing as tolerated DIET: Regular DISCHARGE INSTRUCTIONS: As described above DISCHARGE CONDITION: Stable TIME SPENT ON DISCHARGE: 30 minutes. Vital Signs/I&Os Vital Signs Date Time Temp Pulse Resp B/P (MAP) Pulse Ox O2 Delivery O2 Flow Rate FiO2 03/16/21 08:06 18 Room Air 03/16/21 07:37 65 130/72 03/16/21 05:10 98.6 97 I&O- Last 24 Hours up to 6 AM 03/16/21 06:00 Intake Total 1200 ml Output Total 875 ml Balance 325 ml Discharge Medications Scheduled Albuterol Sulfate (Albuterol Sulfate Hfa) 8.5 Gm Hfa.aer.ad, 2 PUFFS INH DAILY, (Reported) Apixaban (Eliquis) 5 Mg Tablet, 5 MG PO BID, (Reported) Calcium Citrate/Vitamin D3 (Calcium Cit 200-Vit D3 250 Tab) 1 Each Tablet, 2 TAB PO DAILY, (Reported) Gabapentin (Gabapentin) 400 Mg Capsule, 400 MG PO TID, (Reported) only takes for shingle pain Levothyroxine Sodium (Levothyroxine Sodium) 88 Mcg Tablet, 88 MCG PO DAILY, (Reported) Metoprolol Tartrate (Metoprolol Tartrate) 25 Mg Tablet, 25 MG PO BID, (Reported) Omeprazole (Omeprazole) 40 Mg Capsule.dr, 40 MG PO DAILY, (Reported) Umeclidinium Brm/Vilanterol Tr (Anoro Ellipta 62.5-25 Mcg INH) 1 Each Blst.w.d ev, 1 PUFF INH DAILY, (Reported) Scheduled PRN Acetaminophen (Acetaminophen) 325 Mg Tablet, 650 MG PO Q6HP PRN for PAIN LEVEL 1-5, (Reported) Allergies Coded Allergies: Penicillins (Verified Allergy, Intermediate, hives, 05/10/19) YUKI MANCIA M.D. Mar 16, 2021 11:25
== END 2021-03-16 14:15 | disposition home health service (06) ==
LOC: EDBD 17:15 → M ED 17:15 → M ED INP 17:16 → ENRESERV 03-14 06:10 → M MS5PR 03-14 08:40
PROVIDERS: ADMIT Internal Medicine; ATTEND Internal Medicine
DX: M66.0 Rupture of popliteal cyst (principal); R26.2 Difficulty in walking, not elsewhere classified; M17.11 Unilateral primary osteoarthritis, right knee; M22.41 Chondromalacia patellae, right knee; M25.461 Effusion, right knee; I48.91 Unspecified atrial fibrillation; E03.9 Hypothyroidism, unspecified; K21.9 Gastro-esophageal reflux disease without esophagitis; M54.9 Dorsalgia, unspecified; J44.9 Chronic obstructive pulmonary disease, unspecified; Z79.899 Other long term (current) drug therapy; Z79.01 Long term (current) use of anticoagulants; Z88.0 Allergy status to penicillin
CPT/HCPCS: 20610; 36415; 71045; 73721; 76882; 80048; 83735; 84100; 85027; 87631; 93005; 94640; 97161; 97530; 99284; G0378; J3301

== ENCOUNTER 2021-05-27 11:59 | Emergency (ER) | payer MEDICARE, MEDICAID ==
[~2021-05-27 11:59] MED LIST changes: +APAP325T4 PO; +CALC1TAB30 PO; +CALC1TAB49 PO; -D31000TA2 PO; -LEVO500T3 PO; +LEVO500T4 PO; +LEVO88TA3 PO; -OMEP-221 PO; +OMEP40CA5 PO; +VITA100093 PO
[2021-05-27] MEDS ORDERED: ALEN35TA56 (12:09)
[2021-05-27 15:49] VITALS: BP 111/61
== END 2021-05-27 15:51 | disposition home or self-care (01) ==
LOC: M ED 11:59
DX: M17.11 Unilateral primary osteoarthritis, right knee (principal); M71.21 Synovial cyst of popliteal space [Baker], right knee; G89.29 Other chronic pain; J44.9 Chronic obstructive pulmonary disease, unspecified; E03.9 Hypothyroidism, unspecified; K21.9 Gastro-esophageal reflux disease without esophagitis; Z79.899 Other long term (current) drug therapy; Z79.890 Hormone replacement therapy; Z79.01 Long term (current) use of anticoagulants; Z88.0 Allergy status to penicillin

== ENCOUNTER → 2021-06-22 | Outpatient (CLI) | payer MEDICARE, MEDICAID ==
[~2021-06-22] MED LIST changes: +ALEN35TA56
== END ==
LOC: M PLARAD 08:36
PROVIDERS: ATTEND Orthopaedic Surgery Hand Surgery
DX: S83.200A Bucket-handle tear of unspecified meniscus, current injury, right knee, initial encounter (principal); X58.XXXA Exposure to other specified factors, initial encounter; Y92.9 Unspecified place or not applicable; Y93.9 Activity, unspecified; Y99.9 Unspecified external cause status; M22.41 Chondromalacia patellae, right knee; M71.21 Synovial cyst of popliteal space [Baker], right knee; M25.461 Effusion, right knee

== ENCOUNTER → 2021-09-05 | Outpatient (REF) | payer MEDICARE, MEDICAID ==
[2021-09-05 15:00] LABS: CALCIUM LEVEL 8.2 MG/DL (8.8-10.2); CREATININE FOR GFR 0.96 MG/DL (0.55-1.30); GLOMERULAR FILTRATION RATE 58.8 (>32); PHOSPHORUS LEVEL 2.9 MG/DL (2.5-4.9)
== END ==
LOC: M WUC 11:46
PROVIDERS: ATTEND Student in an Organized Health Care Education/Training Program
DX: U07.1 COVID-19 (principal)

== ENCOUNTER → 2021-12-13 | Outpatient (CLI) | payer MEDICARE, MEDICAID ==
[~2021-12-13] MED LIST changes: +LEVO1TAB39 PO; -LEVO500T4 PO
== END ==
LOC: M PLARAD 09:11
PROVIDERS: ATTEND Physician Assistant
DX: M51.36 Other intervertebral disc degeneration, lumbar region (principal); M48.061 Spinal stenosis, lumbar region without neurogenic claudication; M41.26 Other idiopathic scoliosis, lumbar region

== ENCOUNTER → 2022-02-18 | Outpatient (CLI) | payer MEDICARE, MEDICAID | LOC: M PLAIMG 14:04 | PROVIDERS: ATTEND Otolaryngology | DX: R22.1 Localized swelling, mass and lump, neck (principal) ==

== ENCOUNTER → 2022-05-22 | Outpatient (CLI) | payer MEDICARE, MEDICAID | LOC: M WUC 13:46 | PROVIDERS: ATTEND Nurse Practitioner Adult Health | DX: J44.9 Chronic obstructive pulmonary disease, unspecified (principal) ==

== ENCOUNTER → 2022-05-29 | Outpatient (CLI) | payer MEDICARE, MEDICAID | LOC: M WHC 12:40 | PROVIDERS: ATTEND Physician Assistant | DX: M85.88 Other specified disorders of bone density and structure, other site (principal); M81.0 Age-related osteoporosis without current pathological fracture; M85.851 Other specified disorders of bone density and structure, right thigh; M51.36 Other intervertebral disc degeneration, lumbar region ==

== ENCOUNTER → 2022-12-10 | Outpatient (CLI) | payer MEDICARE, MEDICAID ==
[~2022-12-10] MED LIST changes: +DICY-61 PO; -DICY10CA13 PO; -GABA-283 PO; +GABA-284 PO
== END ==
LOC: M WUC 11:34
PROVIDERS: ATTEND Physician Assistant
DX: I51.7 Cardiomegaly (principal); J84.10 Pulmonary fibrosis, unspecified

== ENCOUNTER → 2022-12-30 | Outpatient (CLI) | payer MEDICARE, MEDICAID ==
[~2022-12-30] MED LIST changes: +ISOVUE-300 61% 100ML VIAL As Ordered ONE; +LIDOCAINE 1% MDV 20ML VIAL As Ordered ONE; +methylPREDNISolone SUSP 40MG/ML 1ML VIAL (DEPO MEDROL) As Ordered ONE
== END ==
LOC: M RAD 10:54
PROVIDERS: ATTEND Physician Assistant
DX: M19.112 Post-traumatic osteoarthritis, left shoulder (principal)
CPT/HCPCS: 20610; 77002; J1030; Q9967

== ENCOUNTER → 2023-01-28 | Outpatient (CLI) | payer MEDICARE, MEDICAID ==
[~2023-01-28] MED LIST changes: -ISOVUE-300 61% 100ML VIAL As Ordered ONE; -LIDOCAINE 1% MDV 20ML VIAL As Ordered ONE; -methylPREDNISolone SUSP 40MG/ML 1ML VIAL (DEPO MEDROL) As Ordered ONE
[2023-01-28 19:18] LABS: HEMATOCRIT 38.9 % (36.0-47.0); HEMOGLOBIN 12.4 g/dl (12.0-15.5); MEAN CORPUSCULAR HEMOGLOBIN 33.3 pg (27.0-33.0); MEAN CORPUSCULAR HGB CONC 31.9 g/dl (32.0-36.5); MEAN CORPUSCULAR VOLUME 104.6 fl (80.0-96.0); PLATELET COUNT, AUTOMATED 313 10^3/uL (150-450); RED BLOOD COUNT 3.72 10^6/uL (4.00-5.40); WHITE BLOOD COUNT 5.3 10^3/uL (4.0-10.0)
[2023-01-28 19:33] LABS: BLOOD UREA NITROGEN 20 MG/DL (9-23); CARBON DIOXIDE LEVEL 29 MMOL/L (20-31); CHLORIDE LEVEL 111 MMOL/L (98-107); CREATININE FOR GFR 0.86 MG/DL (0.55-1.30); GLOMERULAR FILTRATION RATE > 60.0 (>32); GLUCOSE, FASTING 87 MG/DL (74-106); POTASSIUM SERUM 4.5 MMOL/L (3.5-5.1); SODIUM LEVEL 146 MMOL/L (136-145)
== END ==
LOC: M WUC 15:00
PROVIDERS: ATTEND Physician Assistant
DX: I50.9 Heart failure, unspecified (principal); I48.0 Paroxysmal atrial fibrillation

== ENCOUNTER → 2023-01-30 | Outpatient (CLI) | payer MEDICARE, MEDICAID | LOC: M WHC 09:55 | PROVIDERS: ATTEND Physician Assistant | DX: R10.811 Right upper quadrant abdominal tenderness (principal) ==

== ENCOUNTER → 2023-02-25 | Outpatient (CLI) | payer MEDICARE, MEDICAID ==
[2023-02-25 14:58] LABS: HEMATOCRIT 39.4 % (36.0-47.0); MEAN CORPUSCULAR HEMOGLOBIN 33.7 pg (27.0-33.0); MEAN CORPUSCULAR VOLUME 102.1 fl (80.0-96.0); PLATELET COUNT, AUTOMATED 354 10^3/uL (150-450); RED BLOOD COUNT 3.86 10^6/uL (4.00-5.40); WHITE BLOOD COUNT 8.1 10^3/uL (4.0-10.0)
[2023-02-25 15:32] LABS: CALCIUM LEVEL 9.1 MG/DL (8.3-10.6); CREATININE FOR GFR 0.98 MG/DL (0.55-1.30); GLOMERULAR FILTRATION RATE 57.2 (>32); MAGNESIUM LEVEL 1.9 MG/DL (1.8-2.4); POTASSIUM SERUM 4.2 MMOL/L (3.5-5.1)
== END ==
LOC: M WUC 10:09
PROVIDERS: ATTEND Physician Assistant
DX: I50.9 Heart failure, unspecified (principal); I48.0 Paroxysmal atrial fibrillation

== ENCOUNTER → 2023-06-16 | Outpatient (CLI) | payer MEDICARE, MEDICAID ==
[2023-06-16 18:43] LABS: ALBUMIN 3.1 G/DL (3.2-5.2); BILIRUBIN,TOTAL 0.4 MG/DL (0.3-1.2); CALCIUM LEVEL 8.8 MG/DL (8.3-10.6); CHOLESTEROL RISK RATIO 4.66 (<5); CREATININE FOR GFR 1.02 MG/DL (0.55-1.30); GLOMERULAR FILTRATION RATE 54.6 (>32); HDL CHOLESTEROL 51.2 MG/DL (>40); LDL CHOLESTEROL 128.4 MG/DL (<100); NON-HDL-C 187.8 MG/DL; POTASSIUM SERUM 4.2 MMOL/L (3.5-5.1); TOTAL PROTEIN 6.1 G/DL (5.7-8.2)
[2023-06-16 18:45] LABS: THYROID STIMULATING HORMONE 3.82 uIU/ML (0.55-4.78)
[2023-06-16 18:56] LABS: BASO # 0.1 10^3/uL (0.0-0.2); BASO % 1.3 % (0.0-1.0); EOS # 0.1 10^3/uL (0.0-0.5); EOS % 2.1 % (0.0-3.0); HEMATOCRIT 41.1 % (36.0-47.0); HEMOGLOBIN 12.8 g/dl (12.0-15.5); LYMPH # 1.5 10^3/uL (1.5-5.0); LYMPH % 22.6 % (24.0-44.0); MEAN CORPUSCULAR HGB CONC 31.1 g/dl (32.0-36.5); MEAN CORPUSCULAR VOLUME 102.8 fl (80.0-96.0); MONO # 0.6 10^3/uL (0.0-0.8); MONO % 9.3 % (2.0-8.0); NEUTROPHILS # 4.3 10^3/uL (1.5-8.5); NEUTROPHILS % 64.4 % (36.0-66.0); PLATELET COUNT, AUTOMATED 316 10^3/uL (150-450); WHITE BLOOD COUNT 6.7 10^3/uL (4.0-10.0)
== END ==
LOC: M WUC 11:53
PROVIDERS: ATTEND Physician Assistant
DX: E03.9 Hypothyroidism, unspecified (principal); M79.671 Pain in right foot

== ENCOUNTER → 2023-07-11 | Outpatient (CLI) | payer MEDICARE, MEDICAID ==
[~2023-07-11] MED LIST changes: +ISOVUE-300 61% 100ML VIAL As Ordered ONE; +LIDOCAINE 1% MDV 20ML VIAL As Ordered ONE; +methylPREDNISolone SUSP 40MG/ML 1ML VIAL (DEPO MEDROL) As Ordered ONE
== END ==
LOC: M RAD 14:53
PROVIDERS: ATTEND Physician Assistant
DX: M19.112 Post-traumatic osteoarthritis, left shoulder (principal)
CPT/HCPCS: 20610; 77002; J1010; Q9967

== ENCOUNTER 2023-07-18 14:35 | Emergency (ER) | payer MEDICARE, MEDICAID ==
[~2023-07-18 14:35] MED LIST changes: -CEFD300C PO
[2023-07-18 15:10] LABS: BASO % 0.3 % (0.0-1.0); EOS % 0.1 % (0.0-3.0); HEMOGLOBIN 13.3 g/dl (12.0-15.5); LYMPH # 0.5 10^3/uL (1.5-5.0); LYMPH % 5.3 % (24.0-44.0); MEAN CORPUSCULAR HEMOGLOBIN 32.4 pg (27.0-33.0); MEAN CORPUSCULAR HGB CONC 33.3 g/dl (32.0-36.5); MEAN CORPUSCULAR VOLUME 97.6 fl (80.0-96.0); MONO # 0.8 10^3/uL (0.0-0.8); MONO % 8.7 % (2.0-8.0); NEUTROPHILS # 7.8 10^3/uL (1.5-8.5); NEUTROPHILS % 84.5 % (36.0-66.0); PLATELET COUNT, AUTOMATED 309 10^3/uL (150-450); WHITE BLOOD COUNT 9.2 10^3/uL (4.0-10.0)
[2023-07-18 15:20] LABS: INR 1.16; PROTHROMBIN TIME 14.5 SECONDS (12.5-14.5)
[2023-07-18 15:35] LABS: LIPASE 37 U/L (12-53)
[2023-07-18 15:37] LABS: ALBUMIN 3.2 G/DL (3.2-5.2); ALKALINE PHOSPHATASE 115 U/L (46-116); ALT/SGPT 13 U/L (7.0-40); AST/SGOT 12 U/L (<34); BILIRUBIN,DIRECT < 0.1 MG/DL (<0.4); BILIRUBIN,TOTAL 0.2 MG/DL (0.3-1.2); BLOOD UREA NITROGEN 35 MG/DL (9-23); CALCIUM LEVEL 9.1 MG/DL (8.3-10.6); CARBON DIOXIDE LEVEL 25 MMOL/L (20-31); CHLORIDE LEVEL 103 MMOL/L (98-107); CK-MB VALUE MASS < 1.0 NG/ML (<3.6); CPK CREATINE PHOSPHOKINASE 30 U/L (34-145); CREATININE FOR GFR 1.06 MG/DL (0.55-1.30); FREE T4 1.18 NG/DL (0.89-1.76); GLOMERULAR FILTRATION RATE 52.2 (>32); GLUCOSE, FASTING 100 MG/DL (74-106); MB/CK RELATIVE INDEX 3.33 (< OR =4); POTASSIUM SERUM 4.4 MMOL/L (3.5-5.1); SODIUM LEVEL 137 MMOL/L (136-145); THYROID STIMULATING HORMONE 1.593 uIU/ML (0.55-4.78); TOTAL PROTEIN 6.2 G/DL (5.7-8.2)
[2023-07-18] MEDS ORDERED: ISOVUE-370 76% 100ML VIAL As Ordered ONE (15:43)
[2023-07-18 15:45] VITALS: BP 152/69; O2SAT 97
[2023-07-18 16:12] VITALS: TEMP 97.8
[2023-07-18] MEDS ORDERED: CEFD300C PO (17:07)
== END 2023-07-18 17:52 | disposition home or self-care (01) ==
LOC: M ED 14:35
DX: J18.9 Pneumonia, unspecified organism (principal); R07.9 Chest pain, unspecified; R91.1 Solitary pulmonary nodule; R05.9 Cough, unspecified; J44.9 Chronic obstructive pulmonary disease, unspecified; Z87.891 Personal history of nicotine dependence; Z79.01 Long term (current) use of anticoagulants; Z79.899 Other long term (current) drug therapy; Z88.0 Allergy status to penicillin
CPT/HCPCS: 71045; 71046; 71275; 80048; 80076; 82550; 82553; 83690; 83880; 84439; 84443; 84484; 85025; 85610; 93005; 93041; 94760; 99285; Q9967

== ENCOUNTER → 2023-07-18 | Outpatient (CLI) | payer MEDICARE, MEDICAID ==
[~2023-07-18] MED LIST changes: +CEFD300C PO; -ISOVUE-300 61% 100ML VIAL As Ordered ONE; -LIDOCAINE 1% MDV 20ML VIAL As Ordered ONE; -methylPREDNISolone SUSP 40MG/ML 1ML VIAL (DEPO MEDROL) As Ordered ONE
== END ==
LOC: M WUC 13:14
PROVIDERS: ATTEND Nurse Practitioner Family
DX: R05.9 Cough, unspecified (principal)

== ENCOUNTER 2023-08-18 11:12 | Emergency (ER) | payer MEDICARE, MEDICAID ==
[~2023-08-18] VITALS: Ht 160 cm; Wt 76.7 kg
[~2023-08-18 11:12] MED LIST changes: +CEFD300C PO; +DOXY-323; -DOXY-443
[2023-08-18 11:57] LABS: BASO # 0.1 10^3/uL (0.0-0.2); BASO % 0.9 % (0.0-1.0); EOS # 0.2 10^3/uL (0.0-0.5); EOS % 2.7 % (0.0-3.0); HEMATOCRIT 39.5 % (36.0-47.0); HEMOGLOBIN 13.2 g/dl (12.0-15.5); LYMPH % 13.1 % (24.0-44.0); MEAN CORPUSCULAR HEMOGLOBIN 32.2 pg (27.0-33.0); MEAN CORPUSCULAR HGB CONC 33.4 g/dl (32.0-36.5); MEAN CORPUSCULAR VOLUME 96.3 fl (80.0-96.0); MONO # 0.7 10^3/uL (0.0-0.8); MONO % 9.5 % (2.0-8.0); NEUTROPHILS # 5.5 10^3/uL (1.5-8.5); PLATELET COUNT, AUTOMATED 363 10^3/uL (150-450); WHITE BLOOD COUNT 7.5 10^3/uL (4.0-10.0)
[2023-08-18 12:15] LABS: BLOOD UREA NITROGEN 27 MG/DL (9-23); CARBON DIOXIDE LEVEL 26 MMOL/L (20-31); CHLORIDE LEVEL 107 MMOL/L (98-107); CK-MB VALUE MASS < 1.0 NG/ML (<3.6); CREATININE FOR GFR 0.96 MG/DL (0.55-1.30); GLOMERULAR FILTRATION RATE 58.5 (>32); GLUCOSE, FASTING 86 MG/DL (74-106); POTASSIUM SERUM 4.5 MMOL/L (3.5-5.1); SODIUM LEVEL 140 MMOL/L (136-145)
[2023-08-18 12:16] LABS: CPK CREATINE PHOSPHOKINASE 46 U/L (34-145); MB/CK RELATIVE INDEX 2.17 (< OR =4)
[2023-08-18 13:09] LABS: ALBUMIN 2.9 G/DL (3.2-5.2); ALKALINE PHOSPHATASE 108 U/L (46-116); ALT/SGPT 18 U/L (7.0-40); AST/SGOT 30 U/L (<34); BILIRUBIN,DIRECT < 0.1 MG/DL (<0.4); BILIRUBIN,TOTAL 0.3 MG/DL (0.3-1.2); TOTAL PROTEIN 6.2 G/DL (5.7-8.2)
[2023-08-18 13:19] LABS: D-DIMER QUANT 0.38 ug/mL (<0.5); INR 1.23; PROTHROMBIN TIME 15.1 SECONDS (12.5-14.5)
[2023-08-18 13:29] LABS: CK-MB VALUE MASS < 1.0 NG/ML (<3.6)
[2023-08-18 13:30] LABS: CPK CREATINE PHOSPHOKINASE 30 U/L (34-145); MB/CK RELATIVE INDEX 3.33 (< OR =4)
[2023-08-18 14:05] VITALS: BP 125/58; TEMP 98; O2SAT 97
== END 2023-08-18 14:08 | disposition home or self-care (01) ==
LOC: M ED 11:12 → EDBD 11:12 → M ED 14:08
DX: R07.9 Chest pain, unspecified (principal); J06.9 Acute upper respiratory infection, unspecified; I44.4 Left anterior fascicular block; I44.7 Left bundle-branch block, unspecified; I10 Essential (primary) hypertension; J44.9 Chronic obstructive pulmonary disease, unspecified; Z88.0 Allergy status to penicillin; Z86.79 Personal history of other diseases of the circulatory system; Z79.52 Long term (current) use of systemic steroids; Z79.2 Long term (current) use of antibiotics; Z79.01 Long term (current) use of anticoagulants; Z79.899 Other long term (current) drug therapy

== ENCOUNTER 2023-09-21 15:10 | Emergency (ER) | payer MEDICARE, MEDICAID ==
[~2023-09-21] VITALS: Ht 160 cm; Wt 75.9 kg
[2023-09-21 16:01] LABS: BASO # 0.1 10^3/uL (0.0-0.2); BASO % 0.7 % (0.0-1.0); EOS % 0.3 % (0.0-3.0); HEMATOCRIT 34.4 % (36.0-47.0); HEMOGLOBIN 11.6 g/dl (12.0-15.5); LYMPH # 0.7 10^3/uL (1.5-5.0); LYMPH % 9.5 % (24.0-44.0); MEAN CORPUSCULAR HEMOGLOBIN 32.9 pg (27.0-33.0); MEAN CORPUSCULAR HGB CONC 33.7 g/dl (32.0-36.5); MEAN CORPUSCULAR VOLUME 97.5 fl (80.0-96.0); MONO # 0.8 10^3/uL (0.0-0.8); NEUTROPHILS # 5.3 10^3/uL (1.5-8.5); NEUTROPHILS % 77.8 % (36.0-66.0); PLATELET COUNT, AUTOMATED 258 10^3/uL (150-450); RED BLOOD COUNT 3.53 10^6/uL (4.00-5.40); WHITE BLOOD COUNT 6.8 10^3/uL (4.0-10.0)
[2023-09-21 16:22] LABS: BLOOD UREA NITROGEN 19 MG/DL (9-23); CALCIUM LEVEL 8.2 MG/DL (8.3-10.6); CARBON DIOXIDE LEVEL 28 MMOL/L (20-31); CHLORIDE LEVEL 109 MMOL/L (98-107); CREATININE FOR GFR 0.93 MG/DL (0.55-1.30); GLOMERULAR FILTRATION RATE > 60.0 (>32); GLUCOSE, FASTING 114 MG/DL (74-106); POTASSIUM SERUM 3.3 MMOL/L (3.5-5.1); SODIUM LEVEL 142 MMOL/L (136-145)
[2023-09-21] MEDS: COMBIVENT RESPIMAT 100-20MCG INHALER 4GM INH ONE (17:06)
[2023-09-21 17:13] VITALS: O2SAT 93
[2023-09-21] MEDS: dexAMETHasone 2 MG TAB PO ONE (17:13)
[2023-09-21] MEDS ORDERED: NIRM1TAB14 PO (17:37)
[2023-09-21 17:47] VITALS: BP 134/67; TEMP 99.1; O2SAT 93
== END 2023-09-21 19:37 | disposition home or self-care (01) ==
LOC: M ED 15:10
DX: U07.1 COVID-19 (principal); J44.9 Chronic obstructive pulmonary disease, unspecified; I48.91 Unspecified atrial fibrillation; E78.5 Hyperlipidemia, unspecified; K21.9 Gastro-esophageal reflux disease without esophagitis; Z87.891 Personal history of nicotine dependence; Z88.0 Allergy status to penicillin; Z79.1 Long term (current) use of non-steroidal anti-inflammatories (NSAID); Z79.51 Long term (current) use of inhaled steroids; Z79.2 Long term (current) use of antibiotics; Z79.899 Other long term (current) drug therapy

== ENCOUNTER → 2024-01-15 | Outpatient (CLI) | payer MEDICARE, MEDICAID ==
[~2024-01-15] MED LIST changes: -DOXY-323; +DOXY-441; +NIRM1TAB14 PO
== END ==
LOC: M PLAIMG 13:48
PROVIDERS: ATTEND Nurse Practitioner Adult Health
DX: R91.8 Other nonspecific abnormal finding of lung field (principal); I51.7 Cardiomegaly; I31.39 Other pericardial effusion (noninflammatory)

== ENCOUNTER → 2024-02-03 | Outpatient (CLI) | payer MEDICARE, MEDICAID | LOC: M PLARAD 12:43 | PROVIDERS: ATTEND Nurse Practitioner Adult Health | DX: R91.8 Other nonspecific abnormal finding of lung field (principal) | CPT/HCPCS: 78815; A9552 ==

== ENCOUNTER → 2024-02-10 | Outpatient (CLI) | payer MEDICARE, MEDICAID ==
[2024-02-10 14:24] LABS: HEMATOCRIT 37.5 % (36.0-47.0); HEMOGLOBIN 12.3 g/dl (12.0-15.5); MEAN CORPUSCULAR HEMOGLOBIN 32.3 pg (27.0-33.0); MEAN CORPUSCULAR HGB CONC 32.8 g/dl (32.0-36.5); MEAN CORPUSCULAR VOLUME 98.4 fl (80.0-96.0); PLATELET COUNT, AUTOMATED 287 10^3/uL (150-450); RED BLOOD COUNT 3.81 10^6/uL (4.00-5.40); WHITE BLOOD COUNT 5.8 10^3/uL (4.0-10.0)
[2024-02-10 14:54] LABS: CALCIUM LEVEL 9.2 MG/DL (8.3-10.6); CREATININE FOR GFR 1.13 MG/DL (0.55-1.30); GLOMERULAR FILTRATION RATE 48.4 (>32); MAGNESIUM LEVEL 1.9 MG/DL (1.8-2.4); POTASSIUM SERUM 4.2 MMOL/L (3.5-5.1)
== END ==
LOC: M WUC 09:32
PROVIDERS: ATTEND Physician Assistant
DX: I48.0 Paroxysmal atrial fibrillation (principal); I50.32 Chronic diastolic (congestive) heart failure

== ENCOUNTER → 2024-03-19 | Outpatient (CLI) | payer MEDICARE, MEDICAID ==
[~2024-03-19] MED LIST changes: +ACETAMINOPHEN 325 MG TAB PO PRN; +LIDOCAINE 1% MDV 20ML VIAL As Ordered ONE; +NORCO, ANEXSIA 5/325MG TABLET (HYDROcodone/ACETAMINOPHEN) As Ordered ONE; +NS (Normal Saline) 0.9% 1,000 ML IV SCH
[2024-03-19 08:05] VITALS: TEMP 97.9
[2024-03-19 08:12] LABS: HEMATOCRIT 37.6 % (36.0-47.0); HEMOGLOBIN 12.6 g/dl (12.0-15.5); MEAN CORPUSCULAR HEMOGLOBIN 33.1 pg (27.0-33.0); MEAN CORPUSCULAR HGB CONC 33.5 g/dl (32.0-36.5); MEAN CORPUSCULAR VOLUME 98.7 fl (80.0-96.0); PLATELET COUNT, AUTOMATED 333 10^3/uL (150-450); RED BLOOD COUNT 3.81 10^6/uL (4.00-5.40); WHITE BLOOD COUNT 6.8 10^3/uL (4.0-10.0)
[2024-03-19 08:32] LABS: INR 0.98; PROTHROMBIN TIME 13.2 SECONDS (12.5-14.5)
[2024-03-19] MEDS: NORCO, ANEXSIA 5/325MG TABLET (HYDROcodone/ACETAMINOPHEN) PO PRN (10:28)
[2024-03-19 13:00] VITALS: BP 120/56; O2SAT 97
== END ==
LOC: M IRPRO 07:18
PROVIDERS: ATTEND Internal Medicine Pulmonary Disease
DX: R91.8 Other nonspecific abnormal finding of lung field (principal); C34.32 Malignant neoplasm of lower lobe, left bronchus or lung; Z79.01 Long term (current) use of anticoagulants

== ENCOUNTER → 2024-03-22 | Outpatient (CLI) | payer MEDICARE, MEDICAID ==
[~2024-03-22] MED LIST changes: -ACETAMINOPHEN 325 MG TAB PO PRN; -LIDOCAINE 1% MDV 20ML VIAL As Ordered ONE; -NORCO, ANEXSIA 5/325MG TABLET (HYDROcodone/ACETAMINOPHEN) As Ordered ONE; -NS (Normal Saline) 0.9% 1,000 ML IV SCH
== END ==
LOC: M WUC 15:08
PROVIDERS: ATTEND Internal Medicine Pulmonary Disease
DX: R91.1 Solitary pulmonary nodule (principal); R91.8 Other nonspecific abnormal finding of lung field; R06.02 Shortness of breath; R07.89 Other chest pain

== ENCOUNTER → 2024-04-15 | Outpatient (CLI) | payer MEDICARE, MEDICAID ==
[~2024-04-15] MED LIST changes: +TORS10TA3 PO
== END ==
LOC: M ONCR 14:35
PROVIDERS: ATTEND General Practice
DX: C34.32 Malignant neoplasm of lower lobe, left bronchus or lung (principal); Z87.891 Personal history of nicotine dependence; Z98.51 Tubal ligation status; Z80.0 Family history of malignant neoplasm of digestive organs; Z80.52 Family history of malignant neoplasm of bladder; Z88.0 Allergy status to penicillin; Z88.1 Allergy status to other antibiotic agents; Z79.890 Hormone replacement therapy; Z79.01 Long term (current) use of anticoagulants; Z79.899 Other long term (current) drug therapy

== ENCOUNTER 2024-04-22 13:55 | Outpatient (RCR) | payer MEDICARE, MEDICAID | END 2024-04-23 | LOC: M ONCR 13:55 | PROVIDERS: ATTEND General Practice | DX: Z51.0 Encounter for antineoplastic radiation therapy (principal); C34.32 Malignant neoplasm of lower lobe, left bronchus or lung ==

== ENCOUNTER 2024-05-07 15:14 | Outpatient (RCR) | payer MEDICARE, MEDICAID | END 2024-05-21 | LOC: M ONCR 15:14 | PROVIDERS: ATTEND General Practice | DX: Z51.0 Encounter for antineoplastic radiation therapy (principal); C34.32 Malignant neoplasm of lower lobe, left bronchus or lung ==

== ENCOUNTER → 2024-07-19 | Outpatient (CLI) | payer MEDICARE, MEDICAID ==
[2024-07-19 12:19] LABS: ALBUMIN 3.2 G/DL (3.2-5.2); BILIRUBIN,TOTAL 0.4 MG/DL (0.3-1.2); CALCIUM LEVEL 9.3 MG/DL (8.3-10.6); CREATININE FOR GFR 1.02 MG/DL (0.55-1.30); GLOMERULAR FILTRATION RATE 52.9 (>32); POTASSIUM SERUM 3.9 MMOL/L (3.5-5.1); TOTAL PROTEIN 6.1 G/DL (5.7-8.2)
== END ==
LOC: M ONCM 11:11
PROVIDERS: ATTEND General Practice
DX: C34.32 Malignant neoplasm of lower lobe, left bronchus or lung (principal)

== ENCOUNTER → 2024-07-26 | Outpatient (CLI) | payer MEDICARE, MEDICAID ==
[~2024-07-26] MED LIST changes: +ISOVUE-370 76% 100ML VIAL As Ordered ONE
== END ==
LOC: M RAD 10:22
PROVIDERS: ATTEND General Practice
DX: C34.32 Malignant neoplasm of lower lobe, left bronchus or lung (principal); J84.9 Interstitial pulmonary disease, unspecified; I70.0 Atherosclerosis of aorta; I25.10 Atherosclerotic heart disease of native coronary artery without angina pectoris; I51.7 Cardiomegaly; M85.89 Other specified disorders of bone density and structure, multiple sites; M48.54XA Collapsed vertebra, not elsewhere classified, thoracic region, initial encounter for fracture
CPT/HCPCS: 71260; Q9967

== ENCOUNTER 2024-08-02 17:48 | Inpatient (IN) | payer MEDICARE, MEDICAID ==
[~2024-08-02] VITALS: Ht 160 cm; Wt 77.9 kg
[~2024-08-02 17:48] MED LIST changes: -ISOVUE-370 76% 100ML VIAL As Ordered ONE
[2024-08-02 19:28] LABS: BASO # 0.1 10^3/uL (0.0-0.2); BASO % 0.6 % (0.0-1.0); EOS # 0.1 10^3/uL (0.0-0.5); EOS % 1.6 % (0.0-3.0); HEMATOCRIT 38.3 % (36.0-47.0); HEMOGLOBIN 12.6 g/dl (12.0-15.5); LYMPH # 1.3 10^3/uL (1.5-5.0); LYMPH % 15.5 % (24.0-44.0); MEAN CORPUSCULAR HEMOGLOBIN 32.1 pg (27.0-33.0); MEAN CORPUSCULAR HGB CONC 32.9 g/dl (32.0-36.5); MEAN CORPUSCULAR VOLUME 97.5 fl (80.0-96.0); MONO # 0.8 10^3/uL (0.0-0.8); MONO % 9.6 % (2.0-8.0); NEUTROPHILS % 72.3 % (36.0-66.0); PLATELET COUNT, AUTOMATED 298 10^3/uL (150-450); RED BLOOD COUNT 3.93 10^6/uL (4.00-5.40); WHITE BLOOD COUNT 8.3 10^3/uL (4.0-10.0)
[2024-08-02 19:54] LABS: LIPASE 358 U/L (12-53)
[2024-08-02 19:56] LABS: ALBUMIN 3.5 G/DL (3.2-5.2); ALKALINE PHOSPHATASE 112 U/L (35-104); ALT/SGPT 16 U/L (7.0-40); AST/SGOT 15 U/L (<34); BILIRUBIN,DIRECT < 0.1 MG/DL (<0.4); BILIRUBIN,TOTAL 0.3 MG/DL (0.3-1.2); BLOOD UREA NITROGEN 21 MG/DL (9-23); CALCIUM LEVEL 9.7 MG/DL (8.3-10.6); CARBON DIOXIDE LEVEL 32 MMOL/L (20-31); CHLORIDE LEVEL 105 MMOL/L (98-107); CREATININE FOR GFR 1.19 MG/DL (0.55-1.30); GLUCOSE, FASTING 89 MG/DL (74-106); SODIUM LEVEL 145 MMOL/L (136-145); TOTAL PROTEIN 6.8 G/DL (5.7-8.2)
[2024-08-02] MEDS ORDERED: ISOVUE-370 76% 100ML VIAL As Ordered ONE (22:54)
[2024-08-02] MEDS: NS (Normal Saline) 0.9% 1,000 ML IV ONE (23:25)
[2024-08-02] MEDS: ONDANSETRON 4MG 2ML VIAL IV ONE (23:25)
[2024-08-02] MEDS: MORPHINE 4 MG/ML 1ML VIAL IV PRN (23:25)
[2024-08-03] VITALS (25 sets, daily range): BP systolic 103–172; BP diastolic 53–72; TEMP 97.4–100.2; O2SAT 89–100
[2024-08-03] MEDS: METOPROLOL 5 MG/5 ML VIAL IV PRN (00:09)
[2024-08-03] MEDS: DIGOXIN INJ 0.5 MG/2 ML AMP IV ONE (00:52)
[2024-08-03 01:16] LABS: CK-MB VALUE MASS 1.3 NG/ML (<3.6)
[2024-08-03 01:18] LABS: MB/CK RELATIVE INDEX 2.6 (< OR =4)
[2024-08-03] MEDS ORDERED: ONDANSETRON 4MG 2ML VIAL IV PRN (04:20)
[2024-08-03] MEDS ORDERED: KETOROLAC 30 MG/ML 1ML VIAL IV PRN (04:20)
[2024-08-03] MEDS ORDERED: MAALOX 30 ML SUSP *UDC PO PRN (04:20)
[2024-08-03] MEDS: NS (Normal Saline) 0.9% 1,000 ML IV SCH (05:32)
[2024-08-03 05:48] LABS: INR 1.08; PROTHROMBIN TIME 14.3 SECONDS (12.5-14.5)
[2024-08-03 05:55] LABS: MAGNESIUM LEVEL 1.8 MG/DL (1.8-2.4)
[2024-08-03 05:58] LABS: PHOSPHORUS LEVEL 3.7 MG/DL (2.4-5.1)
[2024-08-03 06:01] LABS: FREE T4 1.39 NG/DL (0.89-1.76); THYROID STIMULATING HORMONE 0.681 uIU/ML (0.55-4.78)
[2024-08-03] MEDS ORDERED: PANT40TA29 PO (08:14)
[2024-08-03] MEDS ORDERED: MED REC IN PROGRESS XX SCH (08:15)
[2024-08-03 08:35] LABS: HEMATOCRIT 32.9 % (36.0-47.0); HEMOGLOBIN 10.8 g/dl (12.0-15.5); MEAN CORPUSCULAR HEMOGLOBIN 32.8 pg (27.0-33.0); MEAN CORPUSCULAR HGB CONC 32.8 g/dl (32.0-36.5); PLATELET COUNT, AUTOMATED 245 10^3/uL (150-450); RED BLOOD COUNT 3.29 10^6/uL (4.00-5.40); WHITE BLOOD COUNT 10.2 10^3/uL (4.0-10.0)
[2024-08-03 08:35] LABS: BILIRUBIN,TOTAL 0.5 MG/DL (0.3-1.2); CALCIUM LEVEL 8.9 MG/DL (8.3-10.6); CREATININE FOR GFR 0.95 MG/DL (0.55-1.30); GLOMERULAR FILTRATION RATE 57.6 (>32); TOTAL PROTEIN 5.9 G/DL (5.7-8.2)
[2024-08-03] MEDS ORDERED: traMADol 50 MG TAB PO PRN (08:35)
[2024-08-03] MEDS ORDERED: MOM 30ML SUSPENSION UDC PO PRN (08:35)
[2024-08-03] MEDS: DOCUSATE SODIUM 100MG CAPSULE PO SCH (08:41)
[2024-08-03] MEDS: ACETAMINOPHEN 325 MG TAB PO PRN (08:41)
[2024-08-03] MEDS: DIGOXIN 0.25 MG TAB PO SCH (08:44)
[2024-08-03] MEDS ORDERED: HOME MED LIST COMPLETE! XX SCH (10:10)
[2024-08-03] MEDS: APIXABAN 5 MG TAB PO SCH (10:37)
[2024-08-03] MEDS: METOPROLOL TART 25 MG TABLET PO SCH (10:37)
[2024-08-03 11:01] LABS: KETONE, URINE AUTO RFX NEGATIVE (NEGATIVE); LEUKOCYTE ESTERASE UR AUTO RFX NEGATIVE (NEGATIVE); NITRITE, URINE AUTO RFX NEGATIVE (NEGATIVE); RBC, URINE AUTO RFX 0 /HPF (0-3); SQUAM EPITHELIAL CELL UR AURFX 0 /HPF (0-6); WBC, URINE AUTO RFX 0 /HPF (0-3)
[2024-08-03] MEDS ORDERED: GABAPENTIN 400MG CAP PO SCH (16:00)
[2024-08-03] MEDS: LEVOTHYROXINE 88MCG TABLET (0.088 MG) PO SCH (16:36)
[2024-08-03] MEDS: LEVALBUTEROL 1.25 MG 0.5ML CONCENTRATE NEB INH PRN (16:46)
[2024-08-03] MEDS ORDERED: PERCOCET 5MG/325MG TAB PO PRN (17:50)
[2024-08-03] MEDS: hydrALAZINE 20MG/ML 1ML VIAL IV PRN (18:15)
[2024-08-03] MEDS: PERCOCET 5MG/325MG TAB PO PRN (18:48)
[2024-08-03] MEDS: SENNA 8.6 MG TAB PO SCH (20:11)
[2024-08-03] MEDS: PANTOPRAZOLE 40MG TAB PO SCH (20:11)
[2024-08-04] VITALS (35 sets, daily range): BP systolic 113–140; BP diastolic 53–63; TEMP 98.2–101; O2SAT 86–99
[2024-08-04] MEDS: MOM 30ML SUSPENSION UDC PO PRN (05:09)
[2024-08-04 05:40] LABS: HEMATOCRIT 34.2 % (36.0-47.0); HEMOGLOBIN 11.2 g/dl (12.0-15.5); MEAN CORPUSCULAR HEMOGLOBIN 32.7 pg (27.0-33.0); MEAN CORPUSCULAR HGB CONC 32.7 g/dl (32.0-36.5); MEAN CORPUSCULAR VOLUME 99.7 fl (80.0-96.0); PLATELET COUNT, AUTOMATED 238 10^3/uL (150-450); RED BLOOD COUNT 3.43 10^6/uL (4.00-5.40); WHITE BLOOD COUNT 10.9 10^3/uL (4.0-10.0)
[2024-08-04 06:11] LABS: DIGOXIN LEVEL 1.2 NG/ML (0.8-2.0)
[2024-08-04 06:30] LABS: ALBUMIN 2.8 G/DL (3.2-5.2); BILIRUBIN,TOTAL 0.6 MG/DL (0.3-1.2); C REACTIVE PROTEIN QUANTITATIV 11.83 MG/DL (<1.0); CALCIUM LEVEL 8.3 MG/DL (8.3-10.6); CREATININE FOR GFR 0.8 MG/DL (0.55-1.30); GLOMERULAR FILTRATION RATE 70.8 (>32); MAGNESIUM LEVEL 1.7 MG/DL (1.8-2.4); TOTAL PROTEIN 5.6 G/DL (5.7-8.2)
[2024-08-04] MEDS: LACTULOSE 20GM/30ML SYRUP UDC PO SCH (10:20)
[2024-08-04] MEDS: FUROSEMIDE 20MG/2ML VIAL IV ONE (10:22)
[2024-08-04] MEDS: NS (Normal Saline) 0.9% 1,000 ML IV SCH (10:23)
[2024-08-05] VITALS (13 sets, daily range): BP systolic 90–149; BP diastolic 51–67; TEMP 97.6–99.6; O2SAT 90–98
[2024-08-05 05:28] LABS: HEMATOCRIT 31.1 % (36.0-47.0); HEMOGLOBIN 10.3 g/dl (12.0-15.5); MEAN CORPUSCULAR HEMOGLOBIN 32.8 pg (27.0-33.0); MEAN CORPUSCULAR HGB CONC 33.1 g/dl (32.0-36.5); PLATELET COUNT, AUTOMATED 221 10^3/uL (150-450); RED BLOOD COUNT 3.14 10^6/uL (4.00-5.40); WHITE BLOOD COUNT 11.1 10^3/uL (4.0-10.0)
[2024-08-05 05:46] LABS: ALBUMIN 2.6 G/DL (3.2-5.2); BILIRUBIN,TOTAL 0.7 MG/DL (0.3-1.2); CALCIUM LEVEL 7.9 MG/DL (8.3-10.6); CREATININE FOR GFR 0.76 MG/DL (0.55-1.30); GLOMERULAR FILTRATION RATE 75.3 (>32); POTASSIUM SERUM 3.9 MMOL/L (3.5-5.1); TOTAL PROTEIN 5.4 G/DL (5.7-8.2)
[2024-08-05] MEDS: cefTRIAXone SOD 1 GM in DEXTROSE 5% (D5W) ADV/MINI-BAG 50 ML IV SCH (09:02)
[2024-08-05] MEDS: methylPREDNISolone 125MG 2ML VIAL IV ONE (09:22)
[2024-08-05] MEDS: FUROSEMIDE 100MG/10ML VIAL IV ONE (09:22)
[2024-08-05] MEDS: LEVALBUTEROL 1.25 MG 0.5ML CONCENTRATE NEB NEB SCH (15:31)
[2024-08-05] MEDS: methylPREDNISolone 125MG 2ML VIAL IV SCH (18:08)
[2024-08-05] MEDS: AMIODARONE HCL 150 MG in IV 1 EA IV SCH (18:40)
[2024-08-05 18:46] LABS: DIGOXIN LEVEL 1.4 NG/ML (0.8-2.0)
[2024-08-05 19:14] LABS: CALCIUM LEVEL 8.3 MG/DL (8.3-10.6); CREATININE FOR GFR 0.86 MG/DL (0.55-1.30); GLOMERULAR FILTRATION RATE 64.9 (>32); MAGNESIUM LEVEL 2.1 MG/DL (1.8-2.4); PHOSPHORUS LEVEL 1.2 MG/DL (2.4-5.1); POTASSIUM SERUM 3.7 MMOL/L (3.5-5.1)
[2024-08-05] MEDS: AMIODARONE HCL 360 MG in IV 1 EA IV SCH (19:33)
[2024-08-05 19:39] LABS: HEMATOCRIT 32.8 % (36.0-47.0); HEMOGLOBIN 10.9 g/dl (12.0-15.5); MEAN CORPUSCULAR HEMOGLOBIN 32.6 pg (27.0-33.0); MEAN CORPUSCULAR HGB CONC 33.2 g/dl (32.0-36.5); MEAN CORPUSCULAR VOLUME 98.2 fl (80.0-96.0); PLATELET COUNT, AUTOMATED 220 10^3/uL (150-450); RED BLOOD COUNT 3.34 10^6/uL (4.00-5.40); WHITE BLOOD COUNT 11.2 10^3/uL (4.0-10.0)
[2024-08-06] MEDS: AMIODARONE HCL 360 MG in IV 1 EA IV SCH (01:19)
[2024-08-06 03:08] VITALS: BP 146/65; TEMP 97.2; O2SAT 93
[2024-08-06 06:29] LABS: HEMATOCRIT 30.8 % (36.0-47.0); HEMOGLOBIN 10.4 g/dl (12.0-15.5); MEAN CORPUSCULAR HEMOGLOBIN 32.7 pg (27.0-33.0); MEAN CORPUSCULAR HGB CONC 33.8 g/dl (32.0-36.5); MEAN CORPUSCULAR VOLUME 96.9 fl (80.0-96.0); PLATELET COUNT, AUTOMATED 237 10^3/uL (150-450); RED BLOOD COUNT 3.18 10^6/uL (4.00-5.40); WHITE BLOOD COUNT 13.3 10^3/uL (4.0-10.0)
[2024-08-06 07:02] LABS: ALBUMIN 2.5 G/DL (3.2-5.2); BILIRUBIN,TOTAL 0.3 MG/DL (0.3-1.2); CALCIUM LEVEL 8.5 MG/DL (8.3-10.6); CREATININE FOR GFR 0.75 MG/DL (0.55-1.30); GLOMERULAR FILTRATION RATE 76.5 (>32); POTASSIUM SERUM 3.5 MMOL/L (3.5-5.1); TOTAL PROTEIN 5.7 G/DL (5.7-8.2)
[2024-08-06 07:30] VITALS: BP 147/63; TEMP 96.9; O2SAT 96
[2024-08-06 07:38] VITALS: BP 183/77; TEMP 99.6; O2SAT 94
[2024-08-06 08:04] LABS: PROCALCITONIN 0.29 ng/ml
[2024-08-06 08:07] LABS: C REACTIVE PROTEIN QUANTITATIV 21.44 MG/DL (<1.0); MAGNESIUM LEVEL 2.4 MG/DL (1.8-2.4); PHOSPHORUS LEVEL 1.8 MG/DL (2.4-5.1)
[2024-08-06] MEDS: FUROSEMIDE 20MG/2ML VIAL IV SCH (09:00)
[2024-08-06] MEDS: METOPROLOL TART 25 MG TABLET PO SCH (09:33)
[2024-08-06 11:47] VITALS: BP 130/61; TEMP 97.4; O2SAT 93
[2024-08-06] MEDS: DOXYCYCLINE HYCLATE 100MG TABLET PO SCH (14:02)
[2024-08-06 16:00] VITALS: BP 121/59; TEMP 98.3; O2SAT 94
[2024-08-06 19:08] VITALS: BP 131/60; TEMP 98.1; O2SAT 93
[2024-08-07 03:05] VITALS: BP 142/63; TEMP 98.4; O2SAT 91
[2024-08-07 06:08] VITALS: BP 135/62
[2024-08-07 06:29] LABS: HEMATOCRIT 32.7 % (36.0-47.0); MEAN CORPUSCULAR HEMOGLOBIN 32.2 pg (27.0-33.0); MEAN CORPUSCULAR HGB CONC 33.6 g/dl (32.0-36.5); MEAN CORPUSCULAR VOLUME 95.6 fl (80.0-96.0); PLATELET COUNT, AUTOMATED 316 10^3/uL (150-450); RED BLOOD COUNT 3.42 10^6/uL (4.00-5.40)
[2024-08-07 06:49] LABS: ALBUMIN 2.6 G/DL (3.2-5.2); BILIRUBIN,TOTAL 0.3 MG/DL (0.3-1.2); CALCIUM LEVEL 8.4 MG/DL (8.3-10.6); CREATININE FOR GFR 0.79 MG/DL (0.55-1.30); GLOMERULAR FILTRATION RATE 71.9 (>32); POTASSIUM SERUM 4.2 MMOL/L (3.5-5.1); TOTAL PROTEIN 5.9 G/DL (5.7-8.2)
[2024-08-07] MEDS ORDERED: DOXY100T PO (07:03)
[2024-08-07] MEDS ORDERED: CEFD1CAP9 PO (07:03)
[2024-08-07] MEDS ORDERED: METO1TAB87 PO (07:03)
[2024-08-07] MEDS ORDERED: MAGN400T33 PO (07:03)
[2024-08-07] MEDS ORDERED: PROB250C PO (07:03)
[2024-08-07] MEDS ORDERED: PRED20TA PO (07:05)
[2024-08-07 07:27] VITALS: BP 130/63; TEMP 97.9; O2SAT 92
[2024-08-07] MEDS: predniSONE 20 MG TAB PO SCH (08:45)
[2024-08-07 12:00] VITALS: BP 115/58; TEMP 98; O2SAT 95
[2024-08-07 12:45] VITALS: BP 115/58
[2024-08-07] MEDS ORDERED: DIGO0.253 PO (14:43)
== END 2024-08-07 15:51 | disposition home health service (06) | DRG 308 ==
LOC: M ED 17:48 → M ED INP 08-03 04:18 → M PCU 08-03 05:37
PROVIDERS: ADMIT Student in an Organized Health Care Education/Training Program; ATTEND Student in an Organized Health Care Education/Training Program
PROC: B246ZZZ Ultrasonography of Right and Left Heart (ICD-10-PCS; principal; 2024-08-07)
DX: I48.0 Paroxysmal atrial fibrillation (principal); J18.9 Pneumonia, unspecified organism; A41.9 Sepsis, unspecified organism; K85.90 Acute pancreatitis without necrosis or infection, unspecified; J44.1 Chronic obstructive pulmonary disease with (acute) exacerbation; J44.0 Chronic obstructive pulmonary disease with (acute) lower respiratory infection; Z85.118 Personal history of other malignant neoplasm of bronchus and lung; E03.9 Hypothyroidism, unspecified; M19.90 Unspecified osteoarthritis, unspecified site; M81.0 Age-related osteoporosis without current pathological fracture; I50.9 Heart failure, unspecified; K27.9 Peptic ulcer, site unspecified, unspecified as acute or chronic, without hemorrhage or perforation; M54.9 Dorsalgia, unspecified; G89.29 Other chronic pain; Z87.891 Personal history of nicotine dependence; K21.9 Gastro-esophageal reflux disease without esophagitis; Z79.01 Long term (current) use of anticoagulants; Z79.890 Hormone replacement therapy; Z79.899 Other long term (current) drug therapy; Z88.0 Allergy status to penicillin; K59.00 Constipation, unspecified; N83.202 Unspecified ovarian cyst, left side

== ENCOUNTER 2024-08-11 11:44 | Emergency (ER) | payer MEDICARE, MEDICAID ==
[~2024-08-11] VITALS: Ht 160 cm; Wt 77.3 kg
[~2024-08-11 11:44] MED LIST changes: +CEFD1CAP9 PO; +DIGO0.253 PO; +MAGN400T33 PO; +METO1TAB87 PO; +PANT40TA29 PO; +PROB250C PO
[2024-08-11 12:02] VITALS: BP 118/58; O2SAT 97
[2024-08-11 12:33] LABS: BASO % 0.2 % (0.0-1.0); EOS % 0.1 % (0.0-3.0); HEMATOCRIT 37.2 % (36.0-47.0); HEMOGLOBIN 12.5 g/dl (12.0-15.5); LYMPH # 0.6 10^3/uL (1.5-5.0); LYMPH % 5.3 % (24.0-44.0); MEAN CORPUSCULAR HEMOGLOBIN 32.4 pg (27.0-33.0); MEAN CORPUSCULAR HGB CONC 33.6 g/dl (32.0-36.5); MEAN CORPUSCULAR VOLUME 96.4 fl (80.0-96.0); MONO # 0.3 10^3/uL (0.0-0.8); MONO % 2.9 % (2.0-8.0); NEUTROPHILS # 9.8 10^3/uL (1.5-8.5); NEUTROPHILS % 87.4 % (36.0-66.0); PLATELET COUNT, AUTOMATED 397 10^3/uL (150-450); RED BLOOD COUNT 3.86 10^6/uL (4.00-5.40); WHITE BLOOD COUNT 11.2 10^3/uL (4.0-10.0)
[2024-08-11 12:40] LABS: CK-MB VALUE MASS < 1.0 NG/ML (<3.6)
[2024-08-11 12:43] LABS: ALBUMIN 2.8 G/DL (3.2-5.2); ALKALINE PHOSPHATASE 95 U/L (35-104); ALT/SGPT 18 U/L (7.0-40); AST/SGOT 11 U/L (<34); BILIRUBIN,DIRECT < 0.1 MG/DL (<0.4); BILIRUBIN,TOTAL 0.3 MG/DL (0.3-1.2); BLOOD UREA NITROGEN 26 MG/DL (9-23); CALCIUM LEVEL 8.8 MG/DL (8.3-10.6); CARBON DIOXIDE LEVEL 29 MMOL/L (20-31); CHLORIDE LEVEL 105 MMOL/L (98-107); CREATININE FOR GFR 0.93 MG/DL (0.55-1.30); GLOMERULAR FILTRATION RATE 59.1 (>32); GLUCOSE, FASTING 134 MG/DL (74-106); POTASSIUM SERUM 4.1 MMOL/L (3.5-5.1); SODIUM LEVEL 142 MMOL/L (136-145)
[2024-08-11 12:44] LABS: FREE T4 2.18 NG/DL (0.89-1.76)
[2024-08-11 12:45] LABS: THYROID STIMULATING HORMONE 0.141 uIU/ML (0.55-4.78)
[2024-08-11 12:49] LABS: CPK CREATINE PHOSPHOKINASE 21 U/L (34-145); INR 1.09; MB/CK RELATIVE INDEX 4.76 (< OR =4); PARTIAL THROMBOPLASTIN TIME 27.7 SECONDS (24.8-34.2); PROTHROMBIN TIME 14.4 SECONDS (12.5-14.5)
[2024-08-11 13:16] LABS: LIPASE 55 U/L (12-53)
[2024-08-11 14:00] VITALS: TEMP 98.2
== END 2024-08-11 14:30 | disposition home or self-care (01) ==
LOC: EDBD 11:44 → M ED 11:44
DX: R07.89 Other chest pain (principal); I44.0 Atrioventricular block, first degree; I44.7 Left bundle-branch block, unspecified; I48.91 Unspecified atrial fibrillation; J44.9 Chronic obstructive pulmonary disease, unspecified; Z87.891 Personal history of nicotine dependence; Z88.0 Allergy status to penicillin; Z79.1 Long term (current) use of non-steroidal anti-inflammatories (NSAID); Z79.01 Long term (current) use of anticoagulants; Z79.51 Long term (current) use of inhaled steroids; Z79.52 Long term (current) use of systemic steroids; Z79.899 Other long term (current) drug therapy

== ENCOUNTER 2024-09-19 14:31 | Inpatient (IN) | payer MEDICARE, MEDICAID ==
[~2024-09-19] VITALS: Ht 160 cm; Wt 76.6 kg
[~2024-09-19 14:31] MED LIST changes: +FLOR250C PO
[2024-09-19] MEDS ORDERED: ISOVUE-370 76% 100 ML VIAL As Ordered ONE (15:57)
[2024-09-19 16:20] LABS: BASO # 0.1 10^3/uL (0.0-0.2); BASO % 0.7 % (0.0-1.0); EOS # 0.3 10^3/uL (0.0-0.5); EOS % 3.8 % (0.0-3.0); LYMPH # 1.0 10^3/uL (1.5-5.0); LYMPH % 11.5 % (24.0-44.0); MONO # 0.7 10^3/uL (0.0-0.8); MONO % 8.4 % (2.0-8.0); NEUTROPHILS # 6.3 10^3/uL (1.5-8.5); NEUTROPHILS % 75.0 % (36.0-66.0); PLATELET COUNT, AUTOMATED 319 10^3/uL (150-450)
[2024-09-19 16:39] LABS: INR 1.12
[2024-09-19 16:47] LABS: CALCIUM LEVEL 9.1 MG/DL (8.3-10.6); CARBON DIOXIDE LEVEL 30.0 MMOL/L (20-31); CHLORIDE LEVEL 102.0 MMOL/L (98-107); CREATININE FOR GFR 0.84 MG/DL (0.55-1.30); GLOMERULAR FILTRATION RATE 66.8 (>32); MAGNESIUM LEVEL 1.6 MG/DL (1.8-2.4); POTASSIUM SERUM 3.6 MMOL/L (3.5-5.1); SODIUM LEVEL 144.0 MMOL/L (136-145)
[2024-09-19 16:48] LABS: FREE T4 1.45 NG/DL (0.89-1.76)
[2024-09-19] MEDS: MORPHINE 2 MG/ML 1 ML VIAL IV PRN (18:36)
[2024-09-19] MEDS ORDERED: CHOL125C5 PO (21:21)
[2024-09-19] MEDS ORDERED: CALC500T68 PO (21:21)
[2024-09-19] MEDS ORDERED: DIGO0.253 PO (21:21)
[2024-09-19] MEDS ORDERED: HOME MED LIST COMPLETE! XX SCH (21:25)
[2024-09-19] MEDS ORDERED: ALBUTEROL SULFATE 2.5 MG/0.5 ML INH CONCENTRATE NEB SOLN NEB PRN (22:00)
[2024-09-19] MEDS ORDERED: MOM 30 ML SUSPENSION UDC PO PRN (22:00)
[2024-09-19] MEDS ORDERED: MAALOX 30 ML SUSP *UDC PO PRN (22:00)
[2024-09-19] MEDS ORDERED: MORPHINE 2 MG/ML 1 ML VIAL IV PRN (22:00)
[2024-09-19] MEDS ORDERED: ACETAMINOPHEN 325 MG TAB PO PRN (22:00)
[2024-09-19 22:04] LABS: KETONE, URINE AUTO RFX NEGATIVE (NEGATIVE); LEUKOCYTE ESTERASE UR AUTO RFX NEGATIVE (NEGATIVE); NITRITE, URINE AUTO RFX NEGATIVE (NEGATIVE); RBC, URINE AUTO RFX 2 /HPF (0-3); SQUAM EPITHELIAL CELL UR AURFX 2 /HPF (0-6); WBC, URINE AUTO RFX 1 /HPF (0-3)
[2024-09-20] VITALS (26 sets, daily range): BP systolic 97–135; BP diastolic 53–64; TEMP 97.3–98; O2SAT 85–97
[2024-09-20] MEDS: NS (Normal Saline) 0.9% 1,000 ML IV SCH (01:16)
[2024-09-20] MEDS: IPRATROPIUM 0.5 MG/ALBUTEROL 2.5 MG INH SOL UD 3 ML NEB SCH (01:43)
[2024-09-20] MEDS: PERCOCET 5MG/325MG TAB PO PRN (02:02)
[2024-09-20] MEDS: BACLOFEN 5 MG PER 1/2 TABLET PO SCH (02:42)
[2024-09-20 06:10] LABS: PLATELET COUNT, AUTOMATED 286 10^3/uL (150-450)
[2024-09-20 06:40] LABS: AST/SGOT 35.0 U/L (<34); CALCIUM LEVEL 8.5 MG/DL (8.3-10.6); CARBON DIOXIDE LEVEL 28.0 MMOL/L (20-31); CHLORIDE LEVEL 103.0 MMOL/L (98-107); CREATININE FOR GFR 0.89 MG/DL (0.55-1.30); GLOMERULAR FILTRATION RATE 62.3 (>32); POTASSIUM SERUM 3.4 MMOL/L (3.5-5.1); SODIUM LEVEL 144.0 MMOL/L (136-145)
[2024-09-20 06:41] LABS: ALT/SGPT 16.0 U/L (7.0-40)
[2024-09-20] MEDS: ADVAIR HFA 230/21 MCG INHALER INH SCH (07:05)
[2024-09-20] MEDS: DOCUSATE SODIUM 100 MG CAPSULE PO SCH (08:48)
[2024-09-20] MEDS: PANTOPRAZOLE 40MG VIAL IV SCH (08:48)
[2024-09-20] MEDS: APIXABAN 5 MG TAB PO SCH (10:25)
[2024-09-20] MEDS: IPRATROPIUM 0.5 MG/2.5 ML (0.02%) SOLN NEB INH SCH (11:07)
[2024-09-20] MEDS ORDERED: ONDANSETRON 4MG 2ML VIAL IV PRN (11:10)
[2024-09-20 11:29] LABS: CHOLESTEROL LEVEL 182.0 MG/DL (<200); CHOLESTEROL RISK RATIO 5.21 (<5); LDL CHOLESTEROL 94.5 MG/DL (<100); MAGNESIUM LEVEL 1.6 MG/DL (1.8-2.4); NON-HDL-C 147.1 MG/DL; TRIGLYCERIDES LEVEL 263.0 MG/DL (<150)
[2024-09-20] MEDS: POTASSIUM CHLORIDE 10MEQ SR TABLET PO ONE ×2 (11:49→18:54)
[2024-09-20] MEDS: ONDANSETRON 4MG 2ML VIAL IV PRN (11:49)
[2024-09-20 12:08] LABS: ESTIMATED AVERAGE GLUCOSE 100.0 MG/DL (60-110)
[2024-09-20] MEDS: MAG SULF 1GM/100ML (MAG RUN) 1 GM in IV 1 EA IV ONE ×2 (12:40→18:53)
[2024-09-20] MEDS: MAGNESIUM OXIDE 400 MG TAB PO ONE (12:41)
[2024-09-20] MEDS: KETOROLAC 30 MG/ML 1 ML VIAL IV PRN (15:41)
[2024-09-20] MEDS: DIGOXIN INJ 0.5 MG/2 ML AMP IV SCH (17:27)
[2024-09-20] MEDS: METOPROLOL TART 12.5 MG PER 1/2 TAB PO SCH (17:27)
[2024-09-20 17:43] LABS: IONIZED CALCIUM 4.4 MG/DL (4.5-5.3)
[2024-09-20 18:26] LABS: CPK CREATINE PHOSPHOKINASE 321.0 U/L (34-145)
[2024-09-20 18:30] LABS: CK-MB VALUE MASS 3.1 NG/ML (<3.6); MAGNESIUM LEVEL 1.9 MG/DL (1.8-2.4); MB/CK RELATIVE INDEX 0.96 (< OR =4); POTASSIUM SERUM 4.2 MMOL/L (3.5-5.1)
[2024-09-20] MEDS: IPRATROPIUM 0.5 MG/2.5 ML (0.02%) SOLN NEB INH PRN (19:42)
[2024-09-20] MEDS: MIDODRINE 5 MG TAB PO ONE (20:19)
[2024-09-20] MEDS: PANTOPRAZOLE 40MG TAB PO SCH (20:20)
[2024-09-20] MEDS: DOXYCYCLINE HYCLATE 100 MG TABLET PO SCH (20:20)
[2024-09-20] MEDS: METOPROLOL TART 25 MG TABLET PO SCH (23:30)
[2024-09-21] VITALS (24 sets, daily range): BP systolic 132–178; BP diastolic 30–81; TEMP 97.1–97.8; O2SAT 90–96
[2024-09-21 06:29] LABS: PLATELET COUNT, AUTOMATED 294 10^3/uL (150-450)
[2024-09-21 07:24] LABS: ALT/SGPT 33.0 U/L (7.0-40); AST/SGOT 37.0 U/L (<34); CALCIUM LEVEL 8.6 MG/DL (8.3-10.6); CARBON DIOXIDE LEVEL 26.0 MMOL/L (20-31); CHLORIDE LEVEL 107.0 MMOL/L (98-107); CREATININE FOR GFR 0.86 MG/DL (0.55-1.30); DIGOXIN LEVEL 2.5 NG/ML (0.8-2.0); GLOMERULAR FILTRATION RATE 64.9 (>32); POTASSIUM SERUM 5.3 MMOL/L (3.5-5.1); SODIUM LEVEL 144.0 MMOL/L (136-145)
[2024-09-21] MEDS ORDERED: METO25TA4 PO (08:25)
[2024-09-21] MEDS: predniSONE 20 MG TAB PO SCH (08:26)
[2024-09-21] MEDS ORDERED: HOME MED LIST COMPLETE! XX SCH (08:30)
[2024-09-21] MEDS: PATIROMER SORBITEX CALCIUM 8.4GM POWDER PACKET PO ONE (10:48)
[2024-09-22] VITALS (7 sets, daily range): BP systolic 139–171; BP diastolic 65–72; TEMP 97–97.6; O2SAT 91–93
[2024-09-22 05:34] LABS: PLATELET COUNT, AUTOMATED 307 10^3/uL (150-450)
[2024-09-22 05:59] LABS: ALT/SGPT 25.0 U/L (7.0-40); AST/SGOT 21.0 U/L (<34); CALCIUM LEVEL 8.8 MG/DL (8.3-10.6); CARBON DIOXIDE LEVEL 26.0 MMOL/L (20-31); CHLORIDE LEVEL 107.0 MMOL/L (98-107); CREATININE FOR GFR 1.0 MG/DL (0.55-1.30); GLOMERULAR FILTRATION RATE 54.2 (>32); POTASSIUM SERUM 5.4 MMOL/L (3.5-5.1); SODIUM LEVEL 144.0 MMOL/L (136-145)
[2024-09-22] MEDS: PATIROMER SORBITEX CALCIUM 8.4GM POWDER PACKET PO STA (11:13)
[2024-09-22] MEDS: ALBUTEROL SULFATE 2.5 MG/0.5 ML INH CONCENTRATE NEB SOLN NEB ONE (11:15)
[2024-09-22 14:24] LABS: CALCIUM LEVEL 8.9 MG/DL (8.3-10.6); CARBON DIOXIDE LEVEL 24.0 MMOL/L (20-31); CHLORIDE LEVEL 108.0 MMOL/L (98-107); CREATININE FOR GFR 0.9 MG/DL (0.55-1.30); GLOMERULAR FILTRATION RATE 61.5 (>32); POTASSIUM SERUM 4.7 MMOL/L (3.5-5.1); SODIUM LEVEL 145.0 MMOL/L (136-145)
[2024-09-22] MEDS ORDERED: PRED20TA PO (15:25)
[2024-09-22] MEDS ORDERED: METO1TAB87 PO (15:25)
== END 2024-09-22 17:13 | disposition home health service (06) | DRG 309 ==
LOC: M ED 14:31 → M ED INP 21:58 → M PCU 09-20 01:34
PROVIDERS: ADMIT Student in an Organized Health Care Education/Training Program; ATTEND Student in an Organized Health Care Education/Training Program
PROC: B246ZZZ Ultrasonography of Right and Left Heart (ICD-10-PCS; principal; 2024-09-20)
DX: I48.91 Unspecified atrial fibrillation (principal); E87.20 Acidosis, unspecified; I77.4 Celiac artery compression syndrome; I50.32 Chronic diastolic (congestive) heart failure; J44.9 Chronic obstructive pulmonary disease, unspecified; E87.6 Hypokalemia; R07.81 Pleurodynia; E83.42 Hypomagnesemia; R74.01 Elevation of levels of liver transaminase levels; R55 Syncope and collapse; I25.10 Atherosclerotic heart disease of native coronary artery without angina pectoris; I11.0 Hypertensive heart disease with heart failure; E78.00 Pure hypercholesterolemia, unspecified; M81.0 Age-related osteoporosis without current pathological fracture; E03.9 Hypothyroidism, unspecified; J43.9 Emphysema, unspecified; Z88.0 Allergy status to penicillin; I34.0 Nonrheumatic mitral (valve) insufficiency; Z85.118 Personal history of other malignant neoplasm of bronchus and lung; Z79.01 Long term (current) use of anticoagulants; Z79.890 Hormone replacement therapy; Z79.899 Other long term (current) drug therapy; F41.9 Anxiety disorder, unspecified

== ENCOUNTER 2024-10-06 06:34 | Emergency (ER) | payer MEDICARE, MEDICAID ==
[~2024-10-06] VITALS: Ht 162.6 cm; Wt 72.7 kg
[~2024-10-06 06:34] MED LIST changes: -DIGO0.123 PO; -HOLTER MONITOR XX; -METO50TA7 PO; -NIRM1TAB14 PO; +NIRM1TAB16 PO
[2024-10-06] MEDS ORDERED: AMIODARONE HCL 150 MG/100 ML PREMIXED BAG As Ordered ONE (06:43)
[2024-10-06] MEDS: AMIODARONE HCL 150 MG in IV 1 EA IV SCH ×2 (06:45→06:54)
[2024-10-06] MEDS: NS (Normal Saline) 0.9% 1,000 ML IV ONE (06:55)
[2024-10-06] MEDS: AMIODARONE HCL 360 MG in IV 1 EA IV SCH (06:58)
[2024-10-06 07:23] LABS: BASO # 0.0 10^3/uL (0.0-0.2); BASO % 0.5 % (0.0-1.0); EOS # 0.3 10^3/uL (0.0-0.5); EOS % 2.9 % (0.0-3.0); LYMPH # 0.6 10^3/uL (1.5-5.0); LYMPH % 6.6 % (24.0-44.0); MONO # 0.7 10^3/uL (0.0-0.8); MONO % 8.0 % (2.0-8.0); NEUTROPHILS # 7.1 10^3/uL (1.5-8.5); NEUTROPHILS % 81.5 % (36.0-66.0); PLATELET COUNT, AUTOMATED 241 10^3/uL (150-450)
[2024-10-06 07:53] LABS: DIGOXIN LEVEL < 0.1 NG/ML (0.8-2.0)
[2024-10-06 08:00] LABS: CALCIUM LEVEL 8.4 MG/DL (8.3-10.6); CARBON DIOXIDE LEVEL 23 MMOL/L (20-31); CHLORIDE LEVEL 104 MMOL/L (98-107); CK-MB VALUE MASS < 1.0 NG/ML (<3.6); CREATININE FOR GFR 1.13 MG/DL (0.55-1.30); FREE T4 1.49 NG/DL (0.89-1.76); GLOMERULAR FILTRATION RATE 46.8 (>32); MAGNESIUM LEVEL 1.6 MG/DL (1.8-2.4); POTASSIUM SERUM 3.8 MMOL/L (3.5-5.1); SODIUM LEVEL 140 MMOL/L (136-145)
[2024-10-06 08:05] LABS: CPK CREATINE PHOSPHOKINASE < 15 U/L (34-145)
[2024-10-06] MEDS ORDERED: METO50TA7 PO (08:06)
[2024-10-06] MEDS ORDERED: HOME MED LIST COMPLETE! XX SCH (08:10)
[2024-10-06] MEDS: MAG SULF 1GM/100ML (MAG RUN) 1 GM in IV 1 EA IV ONE (08:25)
[2024-10-06 09:05] LABS: CK-MB VALUE MASS < 1.0 NG/ML (<3.6)
[2024-10-06 09:06] LABS: CPK CREATINE PHOSPHOKINASE 17 U/L (34-145)
[2024-10-06] MEDS: DIGOXIN INJ 0.5 MG/2 ML AMP IV ONE (09:26)
[2024-10-06] MEDS ORDERED: DIGO0.123 PO (11:37)
[2024-10-06] MEDS ORDERED: METO25TA4 PO (11:37)
[2024-10-06] MEDS ORDERED: HOLTER MONITOR XX (11:39)
[2024-10-06 12:06] VITALS: BP 124/61; TEMP 97.1; O2SAT 92
== END 2024-10-06 12:22 | disposition home or self-care (01) ==
LOC: EDBD 06:34 → M ED 06:34
DX: I48.91 Unspecified atrial fibrillation (principal); I44.0 Atrioventricular block, first degree; I25.2 Old myocardial infarction; N18.9 Chronic kidney disease, unspecified; J44.9 Chronic obstructive pulmonary disease, unspecified; Z88.0 Allergy status to penicillin; Z79.1 Long term (current) use of non-steroidal anti-inflammatories (NSAID); Z79.51 Long term (current) use of inhaled steroids; Z79.01 Long term (current) use of anticoagulants; Z79.899 Other long term (current) drug therapy
CPT/HCPCS: 71045; 80048; 80162; 82550; 82553; 83735; 84439; 84443; 84484; 85025; 93005; 93041; 94760; 96374; 96375; 96376; 99285; J0282; J1160; J3475

== ENCOUNTER → 2024-10-06 | Outpatient (CLI) | payer MEDICARE, MEDICAID ==
[~2024-10-06] MED LIST changes: +CALC500T68 PO; +CHOL125C5 PO; +DIGO0.123 PO; +HOLTER MONITOR XX; +METO50TA7 PO
== END ==
LOC: M EKG 12:40
PROVIDERS: ATTEND Emergency Medicine
DX: R00.2 Palpitations (principal)

== ENCOUNTER 2024-10-18 11:32 | Inpatient (IN) | payer MEDICARE, MEDICAID ==
[~2024-10-18] VITALS: Ht 160 cm; Wt 72.7 kg
[~2024-10-18 11:32] MED LIST changes: +DIGO0.123 PO; +HOLTER MONITOR XX; +METO50TA7 PO; +NIRM1TAB14 PO; -NIRM1TAB16 PO
[2024-10-18] MEDS: PERCOCET 5MG/325MG TAB PO ONE (11:57)
[2024-10-18] MEDS ORDERED: METO1TAB87 PO (12:54)
[2024-10-18] MEDS ORDERED: DIGO0.123 PO (12:54)
[2024-10-18] MEDS ORDERED: HOME MED LIST COMPLETE! XX SCH (12:55)
[2024-10-18 14:56] LABS: BASO # 0.0 10^3/uL (0.0-0.2); BASO % 0.7 % (0.0-1.0); EOS # 0.3 10^3/uL (0.0-0.5); EOS % 4.6 % (0.0-3.0); LYMPH # 0.9 10^3/uL (1.5-5.0); LYMPH % 15.4 % (24.0-44.0); MONO # 0.7 10^3/uL (0.0-0.8); MONO % 11.4 % (2.0-8.0); NEUTROPHILS # 3.8 10^3/uL (1.5-8.5); NEUTROPHILS % 67.2 % (36.0-66.0); PLATELET COUNT, AUTOMATED 419 10^3/uL (150-450)
[2024-10-18 15:24] LABS: ALT/SGPT 12.0 U/L (7.0-40); AST/SGOT 16.0 U/L (<34); CALCIUM LEVEL 8.9 MG/DL (8.3-10.6); CARBON DIOXIDE LEVEL 28.0 MMOL/L (20-31); CHLORIDE LEVEL 104.0 MMOL/L (98-107); CREATININE FOR GFR 0.94 MG/DL (0.55-1.30); GLOMERULAR FILTRATION RATE 58.4 (>32); POTASSIUM SERUM 3.8 MMOL/L (3.5-5.1); SODIUM LEVEL 144.0 MMOL/L (136-145)
[2024-10-18] MEDS ORDERED: ISOVUE-370 76% 100 ML VIAL As Ordered ONE (16:13)
[2024-10-18 17:28] LABS: DIGOXIN LEVEL 1.4 NG/ML (0.8-2.0)
[2024-10-18] MEDS ORDERED: GABAPENTIN 300 MG CAP PO PRN (18:35)
[2024-10-18 18:50] LABS: INR 1.29
[2024-10-18] MEDS: LIDOCAINE 5% PATCH TD SCH (19:17)
[2024-10-18] MEDS: IPRATROPIUM 0.5 MG/ALBUTEROL 2.5 MG INH SOL UD 3 ML NEB SCH (19:28)
[2024-10-18 20:37] VITALS: BP 126/76; TEMP 97.3; O2SAT 94
[2024-10-18] MEDS: PANTOPRAZOLE 40MG TAB PO SCH (21:25)
[2024-10-18] MEDS: APIXABAN 5 MG TAB PO SCH (21:25)
[2024-10-18] MEDS: METOPROLOL TART 25 MG TABLET PO SCH (21:26)
[2024-10-18 23:35] VITALS: BP 125/65; TEMP 97.3; O2SAT 94
[2024-10-19 03:43] VITALS: BP 109/51; TEMP 97.9; O2SAT 91
[2024-10-19] MEDS: LEVOTHYROXINE 88 MCG TABLET (0.088 MG) PO SCH (06:00)
[2024-10-19 06:37] LABS: PLATELET COUNT, AUTOMATED 386 10^3/uL (150-450)
[2024-10-19 07:01] LABS: CALCIUM LEVEL 8.9 MG/DL (8.3-10.6); CARBON DIOXIDE LEVEL 26.0 MMOL/L (20-31); CHLORIDE LEVEL 105.0 MMOL/L (98-107); CREATININE FOR GFR 0.78 MG/DL (0.55-1.30); GLOMERULAR FILTRATION RATE 73.0 (>32); MAGNESIUM LEVEL 1.5 MG/DL (1.8-2.4); POTASSIUM SERUM 3.6 MMOL/L (3.5-5.1); SODIUM LEVEL 145.0 MMOL/L (136-145)
[2024-10-19 08:00] VITALS: BP 108/54; TEMP 97.9; O2SAT 93
[2024-10-19] MEDS: DIGOXIN 0.125 MG TAB PO SCH (08:06)
[2024-10-19] MEDS: TORSEMIDE 10 MG TABLET PO SCH (08:15)
[2024-10-19] MEDS: MAGNESIUM OXIDE 400 MG TAB PO ONE (10:21)
[2024-10-19 12:00] VITALS: BP 106/50; TEMP 97.7; O2SAT 92
[2024-10-19 16:00] VITALS: BP 110/68; TEMP 97.6; O2SAT 96
[2024-10-19 19:58] VITALS: BP 120/60; TEMP 97.7; O2SAT 92
[2024-10-19 23:55] VITALS: BP 106/49; TEMP 97.5; O2SAT 94
[2024-10-20] VITALS (7 sets, daily range): BP systolic 104–121; BP diastolic 49–60; TEMP 97–97.5; O2SAT 91–96
[2024-10-20 07:52] LABS: PLATELET COUNT, AUTOMATED 344 10^3/uL (150-450)
[2024-10-20 08:17] LABS: CALCIUM LEVEL 8.5 MG/DL (8.3-10.6); CARBON DIOXIDE LEVEL 28.0 MMOL/L (20-31); CHLORIDE LEVEL 105.0 MMOL/L (98-107); CREATININE FOR GFR 0.85 MG/DL (0.55-1.30); GLOMERULAR FILTRATION RATE 65.9 (>32); MAGNESIUM LEVEL 1.5 MG/DL (1.8-2.4); POTASSIUM SERUM 3.7 MMOL/L (3.5-5.1); SODIUM LEVEL 144.0 MMOL/L (136-145)
[2024-10-20] MEDS: IPRATROPIUM 0.5 MG/ALBUTEROL 2.5 MG INH SOL UD 3 ML NEB PRN (20:31)
[2024-10-21] VITALS (7 sets, daily range): BP systolic 100–120; BP diastolic 49–70; TEMP 97–97.5; O2SAT 91–94
[2024-10-21 05:50] LABS: PLATELET COUNT, AUTOMATED 336 10^3/uL (150-450)
[2024-10-21 06:13] LABS: CALCIUM LEVEL 8.5 MG/DL (8.3-10.6); CARBON DIOXIDE LEVEL 27.0 MMOL/L (20-31); CHLORIDE LEVEL 103.0 MMOL/L (98-107); CREATININE FOR GFR 0.9 MG/DL (0.55-1.30); GLOMERULAR FILTRATION RATE 61.5 (>32); MAGNESIUM LEVEL 1.5 MG/DL (1.8-2.4); POTASSIUM SERUM 4.2 MMOL/L (3.5-5.1); SODIUM LEVEL 143.0 MMOL/L (136-145)
[2024-10-21] MEDS: MAGNESIUM OXIDE 400 MG TAB PO ONE (15:45)
[2024-10-22 00:15] VITALS: BP 111/60; TEMP 97.2; O2SAT 93
[2024-10-22] MEDS: ACETAMINOPHEN 500 MG TAB PO PRN (01:21)
[2024-10-22 06:04] VITALS: BP 111/59; TEMP 97; O2SAT 92
[2024-10-22 07:05] LABS: CALCIUM LEVEL 8.5 MG/DL (8.3-10.6); CARBON DIOXIDE LEVEL 31.0 MMOL/L (20-31); CHLORIDE LEVEL 101.0 MMOL/L (98-107); CREATININE FOR GFR 0.94 MG/DL (0.55-1.30); GLOMERULAR FILTRATION RATE 58.4 (>32); MAGNESIUM LEVEL 1.7 MG/DL (1.8-2.4); POTASSIUM SERUM 4.1 MMOL/L (3.5-5.1); SODIUM LEVEL 142.0 MMOL/L (136-145)
[2024-10-22 07:47] LABS: PLATELET COUNT, AUTOMATED 339 10^3/uL (150-450)
[2024-10-22] MEDS: MAGNESIUM OXIDE 400 MG TAB PO SCH (08:32)
[2024-10-22 15:23] VITALS: BP 135/75
[2024-10-23 03:33] VITALS: BP 110/57; TEMP 97.7; O2SAT 91
[2024-10-23 06:17] LABS: PLATELET COUNT, AUTOMATED 345 10^3/uL (150-450)
[2024-10-23 06:48] LABS: CALCIUM LEVEL 8.9 MG/DL (8.3-10.6); CARBON DIOXIDE LEVEL 32.0 MMOL/L (20-31); CHLORIDE LEVEL 100.0 MMOL/L (98-107); CREATININE FOR GFR 0.86 MG/DL (0.55-1.30); GLOMERULAR FILTRATION RATE 64.9 (>32); MAGNESIUM LEVEL 1.8 MG/DL (1.8-2.4); POTASSIUM SERUM 3.8 MMOL/L (3.5-5.1); SODIUM LEVEL 144.0 MMOL/L (136-145)
[2024-10-23] MEDS: SENNA SYRUP 5ML UDC PO PRN (08:04)
[2024-10-23] MEDS: MIRALAX *UNIT DOSE* 17 GM PACKET PO PRN (17:35)
[2024-10-24 06:00] VITALS: BP 112/57; TEMP 97.2; O2SAT 91
[2024-10-24 06:16] LABS: PLATELET COUNT, AUTOMATED 295 10^3/uL (150-450)
[2024-10-24 06:50] LABS: CALCIUM LEVEL 8.4 MG/DL (8.3-10.6); CARBON DIOXIDE LEVEL 31.0 MMOL/L (20-31); CHLORIDE LEVEL 101.0 MMOL/L (98-107); CREATININE FOR GFR 0.85 MG/DL (0.55-1.30); GLOMERULAR FILTRATION RATE 65.9 (>32); MAGNESIUM LEVEL 2.0 MG/DL (1.8-2.4); POTASSIUM SERUM 3.9 MMOL/L (3.5-5.1); SODIUM LEVEL 143.0 MMOL/L (136-145)
[2024-10-25 03:02] VITALS: BP 122/57; TEMP 97.7; O2SAT 90
[2024-10-25 06:32] LABS: PLATELET COUNT, AUTOMATED 313 10^3/uL (150-450)
[2024-10-25 07:05] LABS: CALCIUM LEVEL 9.0 MG/DL (8.3-10.6); CARBON DIOXIDE LEVEL 29.0 MMOL/L (20-31); CHLORIDE LEVEL 102.0 MMOL/L (98-107); CREATININE FOR GFR 0.83 MG/DL (0.55-1.30); GLOMERULAR FILTRATION RATE 67.8 (>32); MAGNESIUM LEVEL 2.2 MG/DL (1.8-2.4); POTASSIUM SERUM 4.4 MMOL/L (3.5-5.1); SODIUM LEVEL 140.0 MMOL/L (136-145)
[2024-10-26 04:18] VITALS: BP 119/54; TEMP 98.1; O2SAT 91
[2024-10-26] MEDS ORDERED: ACET-683 PO (20:42)
[2024-10-26] MEDS ORDERED: LIDO5TD TD (20:42)
[2024-10-26] MEDS ORDERED: SENN8.6T28 PO (20:42)
[2024-10-26] MEDS ORDERED: MIRA33506 PO (20:42)
[2024-10-26] MEDS ORDERED: OXYC-517 PO (20:42)
[2024-10-26 20:51] VITALS: BP 104/52
[2024-10-26 22:53] VITALS: BP 110/62
[2024-10-27 03:17] VITALS: BP 108/46; TEMP 97.2; O2SAT 93
[2024-10-27 03:27] VITALS: BP 106/60
[2024-10-27 08:33] VITALS: BP 107/47
== END 2024-10-27 09:36 | DRG 184 ==
LOC: M ED 11:32 → EDBD 11:32 → M ED INP 17:34 → M MSPAV 20:23
PROVIDERS: ADMIT Family Medicine; ATTEND Internal Medicine
DX: S22.42XA Multiple fractures of ribs, left side, initial encounter for closed fracture (principal); I50.32 Chronic diastolic (congestive) heart failure; I48.91 Unspecified atrial fibrillation; J44.9 Chronic obstructive pulmonary disease, unspecified; E03.9 Hypothyroidism, unspecified; K21.9 Gastro-esophageal reflux disease without esophagitis; I34.0 Nonrheumatic mitral (valve) insufficiency; W18.09XA Striking against other object with subsequent fall, initial encounter; Y92.038 Other place in apartment as the place of occurrence of the external cause; Y93.9 Activity, unspecified; Y99.8 Other external cause status; R09.02 Hypoxemia; Z79.01 Long term (current) use of anticoagulants; Z79.899 Other long term (current) drug therapy; Z87.891 Personal history of nicotine dependence; Z85.118 Personal history of other malignant neoplasm of bronchus and lung; Z79.890 Hormone replacement therapy

== ENCOUNTER → 2025-02-09 | Outpatient (CLI) | payer MEDICARE, MEDICAID ==
[~2025-02-09] MED LIST changes: +ACET-683 PO; +LIDO5TD TD; +MIRA33506 PO; -NIRM1TAB14 PO; +NIRM1TAB16 PO; +OXYC-517 PO; +SENN8.6T28 PO
== END ==
LOC: M RAD 11:09
PROVIDERS: ATTEND General Practice
DX: C34.90 Malignant neoplasm of unspecified part of unspecified bronchus or lung (principal)

== ENCOUNTER → 2025-02-23 | Outpatient (CLI) | payer MEDICARE, MEDICAID | LOC: M ONCR 12:27 | PROVIDERS: ATTEND General Practice | DX: C34.12 Malignant neoplasm of upper lobe, left bronchus or lung (principal); Z79.01 Long term (current) use of anticoagulants; Z79.899 Other long term (current) drug therapy; Z87.891 Personal history of nicotine dependence; Z88.0 Allergy status to penicillin; Z92.3 Personal history of irradiation ==